=== PATIENT | male | born 1945 | race Caucasian/White ===

== ENCOUNTER 2017-02-21 02:14 | Emergency (ER) | payer OTHER, MEDICARE ==
[2017-02-21 02:25] VITALS: TEMP 98.5
[2017-02-21 02:53] LABS: Anisocytosis Slight; Basophils % (A) 0 %; CH 28.8; CHCM 33.1; Eosinophils # (A) 0.3 k/uL (0-0.7); Eosinophils % (A) 3 %; HCT 43.7 % (39.0-53.0); HDW 2.34; HGB 14.3 gm/dL (13.0-17.5); Luc # (Auto) 0.07; Luc % (Auto) 1; Lymphocytes # (A) 2.5 k/uL (1.0-4.8); Lymphocytes % (A) 28 %; MCH 28.5 pg (25.0-35.0); MCHC 32.7 g/dL (31.0-37.0); MCV 87.3 fL (80.0-100.0); Mean Platelet Volume 6.8; Monocytes # (A) 0.1 k/uL (0-1.0); Monocytes % (A) 1 %; Neutrophils # (A) 5.9 k/uL (1.3-7.7); Neutrophils % (A) 67 %; RBC 5.01 m/uL (4.30-5.90); RDW 16.1 % (11.5-15.5); WBC 8.9 k/uL (3.8-10.6); WBC (Perox) 8.56
[2017-02-21 03:01] LABS: ALT 25 U/L (21-72); AST 14 U/L (17-59); Alkaline Phosphatase 75 U/L (38-126); Amylase 72 U/L (30-110); Anion Gap 9 mmol/L; Blood Urea Nitrogen 23 mg/dL (9-20); Carbon Dioxide 22 mmol/L (22-30); Chloride 109 mmol/L (98-107); Glucose 118 mg/dL (74-99); Non-African American GFR(MDRD) 54 (>60 ml/min/1.73 sqM); Potassium 4.4 mmol/L (3.5-5.1); Sodium 140 mmol/L (137-145); Total Bilirubin 0.5 mg/dL (0.2-1.3); Total Protein 6.4 g/dL (6.3-8.2)
[2017-02-21] MEDS ORDERED: KETOROLAC 30 MG/ML 1 ML VIAL IVP STA (03:02)
[2017-02-21] MEDS ORDERED: ONDANSETRON 4 MG/2 ML VIAL IVP STA (03:03)
--- NOTE | 2017-02-21 03:05 | ED ---
Abdominal Pain HPI - General Source: patient, RN notes reviewed Mode of arrival: ambulatory Limitations: no limitations <Christine Vargas - Last Filed: 02/21/17 04:48> <Henry Lopez - Last Filed: 02/21/17 06:14> - General Chief Complaint: Abdominal Pain Stated Complaint: abd pain Time Seen by Provider: 02/21/17 02:39 - History of Present Illness Initial Comments: Patient is a 72-year-old male presents to the emergency room for evaluation of abdominal pain. Patient states pain began last . Patient states pain has been getting worse throughout the past day. Patient states he's having pain in left lower quadrant that radiates into his left lower back. Patient states he has never had pain like this before. Patient denies constipation or diarrhea. Patient denies chest pain or shortness of breath. Patient states he has history of cholecystectomy and appendectomy. Patient denies any diarrhea or constipation. Patient denies history of kidney stones. Patient denies any pain or burning during urination, trouble urinating or blood in urine. Patient denies fevers or chills. Patient denies any trauma to his abdomen or back. ( Christine Vargas) - Related Data Home Medications Medication Instructions Recorded Confirmed Folic Acid 1 mg PO DAILY 02/21/17 02/21/17 Methotrexate Sodium [Methotrexate] 8 tab PO WEEKLY 02/21/17 02/21/17 Previous Rx's Medication Instructions Recorded Hydrocodone/Acetaminophen [[place] 1 each PO Q6HR PRN #20 tab 02/21/17 5-325] Ondansetron Odt [Zofran ODT] 4 mg PO Q8HR PRN #10 tab 02/21/17 Tamsulosin [Flomax] 0.4 mg PO DAILY #14 cap 02/21/17 Allergies Allergy/AdvReac Type Severity Reaction Status Date / Time No Known Allergies Allergy Verified 02/21/17 02:25 Review of Systems ROS Other: All systems not noted in ROS Statement are negative. <Christine Vargas - Last Filed: 02/21/17 04:48> ROS Other: All systems not noted in ROS Statement are negative. <Henry Lopez - Last Filed: 02/21/17 06:14> ROS Statement: Those systems with pertinent positive or pertinent negative responses have been documented in the HPI. Past Medical History Past Medical History: Rheumatoid Arthritis (RA) Additional Past Medical History / Comment(s): 09/01/14 Pt presented to [facility] ER with c/o severe R lower chest discomfort started yesterday. Pain is present with movement or laughter or coughing. Pain is better if pt lies very still. Pt states he has had a chronic cough for 8 months. He has been on ABX several times and gets better but eventually cough returns. Other HX: Pt believes he has arthiritis which affects his entire bodies joints d/t the fact he has various joint pain with weather changes especially. History of Any Multi-Drug Resistant Organisms: None Reported Past Surgical History: Joint Replacement, Orthopedic Surgery Additional Past Surgical History / Comment(s): bilateral total knees, left shoulder-pt thinks total joint, colonoscopy with 2 polyps removed-pt thinks they were malignant but needed no further treatment. Past Anesthesia/Blood Transfusion Reactions: No Reported Reaction Additional Past Anesthesia/Blood Transfusion Reaction / Comment(s): Pt has never recieved blood. Past Psychological History: No Psychological Hx Reported Smoking Status: Former smoker Past Alcohol Use History: None Reported Past Drug Use History: None Reported - Past Family History Father Family Medical History: Cancer Additional Family Medical History / Comment(s): Father at age 70 yrs. Mother Family Medical History: Cancer Additional Family Medical History / Comment(s): Mother had breast cancer. She at age 88yrs. <Gabrielle Vargasandra Cheatham - Last Filed: 02/21/17 04:48> General Exam Limitations: no limitations General appearance: alert, in no apparent distress Head exam: Present: atraumatic, normocephalic, normal inspection Eye exam: Present: normal appearance ENT exam: Present: normal exam Neck exam: Present: normal inspection Respiratory exam: Present: normal lung sounds bilaterally. Absent: respiratory distress Cardiovascular Exam: Present: regular rate, normal rhythm, normal heart sounds GI/Abdominal exam: Present: soft, tenderness (left lower quadrant), normal bowel sounds. Absent: distended, guarding, rebound, rigid Extremities exam: Present: normal inspection Back exam: Present: normal inspection. Absent: CVA tenderness (R), CVA tenderness (L) Neurological exam: Present: alert, oriented X3, CN II-XII intact, normal gait Psychiatric exam: Present: normal affect, normal mood Skin exam: Present: warm, dry, intact, normal color. Absent: rash <Christine Vargas - Last Filed: 02/21/17 04:48> <Henry Lopez - Last Filed: 02/21/17 06:14> - General Exam Comments Initial Comments: sitting in exam room, no acute distress. (Christine Vargas) Medical Decision Making - Lab Data Result diagrams: 02/21/17 02:30 02/21/17 02:30 <Christine Vargas - Last Filed: 02/21/17 04:48> - Lab Data Result diagrams: 02/21/17 02:30 02/21/17 02:30 <Henry Lopez - Last Filed: 02/21/17 06:14> - Medical Decision Making Patient is a 72-year-old male since emergency room for evaluation of left lower quadrant pain that radiates to left flank. CT abdomen/pelvis pending. Case discussed with Dr. Lopez at 4:50 AM. (Christine Vargas) - Lab Data Lab Results 02/21/17 02/21/17 02/21/17 Range/Units 02:30 02:30 02:50 WBC 8.9 (3.8-10.6) k/uL RBC 5.01 (4.30-5.90) m/uL Hgb 14.3 (13.0-17.5) gm/dL Hct 43.7 (39.0-53.0) % MCV 87.3 (80.0-100.0) fL MCH 28.5 (25.0-35.0) pg MCHC 32.7 (31.0-37.0) g/dL RDW 16.1 H (11.5-15.5) % Plt Count 344 (150-450) k/uL Neutrophils % 67 % Lymphocytes % 28 % Monocytes % 1 % Eosinophils % 3 % Basophils % 0 % Neutrophils # 5.9 (1.3-7.7) k/uL Lymphocytes # 2.5 (1.0-4.8) k/uL Monocytes # 0.1 (0-1.0) k/uL Eosinophils # 0.3 (0-0.7) k/uL Basophils # 0.0 (0-0.2) k/uL Anisocytosis Slight Sodium 140 (137-145) mmol/L Potassium 4.4 (3.5-5.1) mmol/L Chloride 109 H (98-107) mmol/L Carbon Dioxide 22 (22-30) mmol/L Anion Gap 9 mmol/L BUN 23 H (9-20) mg/dL Creatinine 1.30 H (0.66-1.25) mg/dL Est GFR (MDRD) Af Amer >60 (>60 ml/min/1.73 sqM) Est GFR (MDRD) Non-Af 54 (>60 ml/min/1.73 sqM) Glucose 118 H (74-99) mg/dL Calcium 9.0 (8.4-10.2) mg/dL Total Bilirubin 0.5 (0.2-1.3) mg/dL AST 14 L (17-59) U/L ALT 25 (21-72) U/L Alkaline Phosphatase 75 (38-126) U/L Total Protein 6.4 (6.3-8.2) g/dL Albumin 3.6 (3.5-5.0) g/dL Amylase 72 (30-110) U/L Lipase 528 H (23-300) U/L Urine Color Yellow Urine Appearance Clear (Clear) Urine pH 6.0 (5.0-8.0) Ur Specific [place] 1.020 (1.001-1.035) Urine Protein Trace H (Negative) Urine Glucose (UA) Negative (Negative) Urine Ketones Negative (Negative) Urine Blood Small H (Negative) Urine Nitrite Negative (Negative) Urine Bilirubin Negative (Negative) Urine Urobilinogen <2.0 (<2.0) mg/dL Ur Leukocyte Esterase Moderate H (Negative) Urine RBC 23 H (0-5) /hpf Urine WBC 9 H (0-5) /hpf Urine Mucus Rare H (None) /hpf Disposition <Christine Vargas - Last Filed: 02/21/17 04:48> <Henry Lopez - Last Filed: 02/21/17 06:14> Clinical Impression: Calculus of kidney Disposition: HOME SELF-CARE Condition: Good Instructions: Kidney Stones (ED) Prescriptions: Hydrocodone/Acetaminophen [Wilton 5-325] 1 each PO Q6HR PRN #20 tab PRN Reason: Pain Ondansetron Odt [Zofran ODT] 4 mg PO Q8HR PRN #10 tab PRN Reason: Nausea Tamsulosin [Flomax] 0.4 mg PO DAILY #14 cap Referrals: Allen Barber DO [Primary Care Provider] - 1-2 days
[2017-02-21] MEDS: SODIUM CHLORIDE 0.9% 1,000 ML IV ONE ×2 (03:11→03:47)
[2017-02-21] MEDS ORDERED: SODIUM CHLORIDE 0.9% 1,000 ML IV ONE (03:42)
[2017-02-21 03:51] LABS: Appearance,Urine Clear (Clear); Bilirubin,Urine Negative (Negative); Glucose,Urine (UA) Negative (Negative); Ketones,Urine Negative (Negative); Leukocyte Esterase,Urine Moderate (Negative); Mucus,Urine Rare /hpf; Nitrite,Urine Negative (Negative); Particle Count 2595; Protein,Urine Trace (Negative); RBC,Urine 23 /hpf (0-5); UA Billing (MACRO vs. MICRO) MICRO; Urobilinogen,Urine <2.0 mg/dL (<2.0); WBC,Urine 9 /hpf (0-5)
--- NOTE | 2017-02-21 05:33 | CT ---
EXAM: CT Abdomen and Pelvis Without Intravenous Contrast CLINICAL HISTORY: Reason: Flank pain. TECHNIQUE: Axial computed tomography images of the abdomen and pelvis without intravenous contrast. CTDI is 13.90 mGy and DLP is 717.30 mGy-cm. This CT exam was performed using one or more of the following dose reduction techniques: automated exposure control, adjustment of the mA and/or kV according to patient size, and/or use of iterative reconstruction technique. COMPARISON: 09/25/14 CT with contrast FINDINGS: Lower thorax: Linear opacities suggesting atelectasis or scarring at the left base where there is trace pleural fluid or thickening present. Note is made of coronary artery calcification. ABDOMEN: Liver: Stable. Gallbladder and bile ducts: Prior cholecystectomy. No calcified stones. No ductal dilation. Pancreas: Stable. Spleen: Stable. No splenomegaly. Adrenals: Now seen is a punctate calcification at the left adrenal alicia without associated soft tissue nodule, perhaps on the basis of prior infection or hemorrhage. Kidneys and ureters: There is now a 9 mm in length mid left ureter stone at the inferior L4 level, with mild to moderate hydroureter, moderate hydronephrosis and mild perinephric stranding present. Additional smaller nonobstructing stones present within both kidneys. Small probable cyst along the posterior right upper pole kidney is unchanged. Stomach and bowel: Colonic diverticulosis throughout without evidence of diverticulitis. Appendix: No findings to suggest acute appendicitis. PELVIS: Bladder: Decompressed. No stones. Reproductive: Marked prostatic enlargement, containing calcifications within, stable. ABDOMEN and PELVIS: Intraperitoneal space: No free air. No significant fluid collection. Bones/joints: Degenerative changes without acute abnormality seen. Soft tissues: 14 mm rim calcified focus anteriorly in the left lower quadrant is unchanged and may be related to prior diverticulitis or sequela from previous epiploic appendagitis. Vasculature: No abdominal aortic aneurysm. Lymph nodes: No adenopathy is seen. IMPRESSION: 1. 9 mm left ureter stone at the L4 level, with secondary signs of urinary tract obstruction now presents. 2. Tiny nonobstructing bilateral intrarenal calculi. 3. There is new left basilar pleural thickening or trace fluid. 4. Additional findings, including a left adrenal calcification without associated soft tissue nodule, as above.
[2017-02-21 06:25] VITALS: BP 122/70; PULSE 80; RESP 20
== END 2017-02-21 06:23 | disposition home or self-care (01) ==
LOC: EC 02:14
DX: N20.0 Calculus of kidney (principal); Z79.899 Other long term (current) drug therapy; Z87.891 Personal history of nicotine dependence; Z90.49 Acquired absence of other specified parts of digestive tract
CPT/HCPCS: 99284; 96374; 96375; 96361 ×2; 36415; 80053; 82150; 83690; 85025; 81001; 74176; J2405; J1885

== ENCOUNTER → 2017-02-25 | Outpatient (CLI) | payer OTHER, MEDICARE ==
--- NOTE | 2017-02-25 11:53 | XR ---
Abdomen HISTORY: Renal calculus Frontal view of the abdomen submitted on 2 images and correlated to prior abdomen dated 02/21/2017 Surgical clips are present in the right upper quadrant. Calcified diverticulum is superimposed over t he left ilium. Multiple vascular calcifications are present within the pelvis. There are prostate jennifer cifications present, probable bone island is present within the ischium on the left. Suspect renal ca lculus is superimposed over the left L5 transverse process and one of the 2 views. It measures approx imately 8 mm. Degenerative disc changes are present in the visualized spine. Bases and probable atelectasis or scarring. No bowel obstruction or pneumoperitoneum. Punctate nonobs tructive calculus within the right kidney measures 2 to 3 mm, overlying bowel gas may obscure detail. IMPRESSION: Suspect left ureteral calculus remains in place in the distribution of the mid ureter. Ri ght nephrolithiasis, additional findings above.
== END | disposition home or self-care (01) ==
LOC: RADXRMAIN 09:24
PROVIDERS: ATTEND Urology
DX: N20.0 Calculus of kidney (principal)
CPT/HCPCS: 74000

== ENCOUNTER 2018-02-19 09:34 | Emergency (ER) | payer MEDICARE, OTHER ==
--- NOTE | 2018-02-19 09:55 | ED ---
General Adult HPI - General Chief complaint: Extremity Problem,Nontraumatic Stated complaint: Leg Pain, poss blood clot Time Seen by Provider: 02/19/18 09:40 Source: patient, RN notes reviewed Mode of arrival: ambulatory Limitations: no limitations - History of Present Illness Initial comments: Patient is 73-year-old male presented to the emergency room today with chief complaint of left calf pain 2 weeks. He did see his family doctor earlier this morning was advised coming here in the emergency room to have ultrasound to rule out a blood clot. Patient admits that he had a blood clot in his long approximate 7 years ago. States is not on any blood thinner at this time. Patient admits that he started having pain 2 weeks ago feels a leg cramp. States worse with certain movements and denies any other complaints or symptoms. Denies any injury or trauma to the area. Patient denies any recent fever, chills, shortness of breath, chest pain, back pain, abdominal pain, nausea or vomiting, numbness or tingling, or any other complaints. - Related Data Home Medications Medication Instructions Recorded Confirmed Folic Acid 1 mg PO DAILY 02/21/17 02/19/18 Methotrexate Sodium [Methotrexate] 25 tab PO Q7D 02/21/17 02/19/18 Cholecalciferol (Vitamin D3) 2,000 unit PO DAILY 02/19/18 02/19/18 [Vitamin D3] Naproxen 500 mg PO BID PRN 02/19/18 02/19/18 Sildenafil Citrate [Viagra] 50 mg PO ONCE PRN MDD 4 DOSES PER 02/19/18 02/19/18 MONTH Terazosin HCl 5 mg PO HS 02/19/18 02/19/18 Previous Rx's Medication Instructions Recorded Tamsulosin [Flomax] 0.4 mg PO DAILY #14 cap 02/21/17 Allergies Allergy/AdvReac Type Severity Reaction Status Date / Time No Known Allergies Allergy Verified 02/19/18 10:32 Review of Systems ROS Statement: Those systems with pertinent positive or pertinent negative responses have been documented in the HPI. ROS Other: All systems not noted in ROS Statement are negative. Past Medical History Past Medical History: Rheumatoid Arthritis (RA) Additional Past Medical History / Comment(s): 09/01/14 Pt presented to [facility] ER with c/o severe R lower chest discomfort started yesterday. Pain is present with movement or laughter or coughing. Pain is better if pt lies very still. Pt states he has had a chronic cough for 8 months. He has been on ABX several times and gets better but eventually cough returns. Other HX: Pt believes he has arthiritis which affects his entire bodies joints d/t the fact he has various joint pain with weather changes especially. History of Any Multi-Drug Resistant Organisms: None Reported Past Surgical History: Joint Replacement, Orthopedic Surgery Additional Past Surgical History / Comment(s): bilateral total knees, left shoulder-pt thinks total joint, colonoscopy with 2 polyps removed-pt thinks they were malignant but needed no further treatment. Past Anesthesia/Blood Transfusion Reactions: No Reported Reaction Additional Past Anesthesia/Blood Transfusion Reaction / Comment(s): Pt has never recieved blood. Past Psychological History: No Psychological Hx Reported Smoking Status: Former smoker Past Alcohol Use History: None Reported Past Drug Use History: None Reported - Past Family History Father Family Medical History: Cancer Additional Family Medical History / Comment(s): Father at age 70 yrs. Mother Family Medical History: Cancer Additional Family Medical History / Comment(s): Mother had breast cancer. She at age 88yrs. General Exam - General Exam Comments Initial Comments: General: The patient is awake and alert, in no distress, and does not appear acutely ill. Neck: The neck is supple, there is no tenderness or JVD. Cardiovascular: There is a regular rate and rhythm. No murmur, rub or gallop is appreciated. Respiratory: Lungs are clear to auscultation, respirations are non-labored, breath sounds are equal. No wheezes, stridor, rales, or rhonchi. Musculoskeletal: Full range of motion. Sensations intact. Pedal pulse 2+. Tender to palpation posterior left calf. No bony tenderness. Neurological: A&O x 3. CN II-XII intact, There are no obvious motor or sensory deficits. Coordination appears grossly intact. Speech is normal. Skin: Skin is warm and dry and no rashes or lesions are noted. Psychiatric: Normal mood and affect. Limitations: no limitations Course Vital Signs 02/19/18 09:36 Temperature 97.7 F Pulse Rate 74 Respiratory 20 Rate Blood Pressure 144/80 O2 Sat by Pulse 99 Oximetry Medical Decision Making - Medical Decision Making Patient reexamined at this time shows no signs of distress. His ultrasound shows no evidence of a deep venous thrombosis. There is evidence for superficial venous process. Patient advised compresses and says he can take ibuprofen. Disposition Clinical Impression: Superficial vein thrombosis Disposition: HOME SELF-CARE Condition: Good Instructions: Superficial Thrombophlebitis (ED) Additional Instructions: Please use warm compresses to the area as discussed with anti-inflammatories for pain as needed. Please follow-up the family doctor symptoms are increasing or return here to the emergency room for any other concerns. Is patient prescribed a controlled substance at d/c from ED?: No Referrals: [facility],Clinic [Primary Care Provider] - 1-2 days Time of Disposition: 11:22
--- NOTE | 2018-02-19 10:36 | US ---
EXAMINATION TYPE: US venous doppler duplex LE LT DATE OF EXAM: 02/19/2018 10:24 AM COMPARISON: None CLINICAL HISTORY: Pain. Hx of PE x 4 years ago. No blood thinners. Left knee pain. No swelling. No redness. SIDE PERFORMED: Left TECHNIQUE: The lower extremity deep venous system is examined utilizing real time linear array sonog sanjeev with graded compression, doppler sonography and color-flow sonography. VESSELS IMAGED: External Iliac Vein (EIV) Common Femoral Vein Deep Femoral Vein Greater Saphenous Vein * Femoral Vein Popliteal Vein Small Saphenous Vein * Proximal Calf Veins (* superficial vessels) Grayscale, color doppler, spectral doppler imaging performed of the deep veins of the left lower extr emity. There is normal flow, compressibility, vascular waveforms. Left Leg: Negative for DVT. Superficial noncompressible vein seen in posterior upper calf. IMPRESSION: 1. No sonographic evidence of deep venous thrombosis within the left lower extremity. 2. Within the posterior upper calf there is superficial venous thrombosis.
[2018-02-19 11:40] VITALS: BP 136/77; PULSE 72; RESP 18; TEMP 98.4
== END 2018-02-19 11:39 | disposition home or self-care (01) ==
LOC: EC 09:34
DX: I82.812 Embolism and thrombosis of superficial veins of left lower extremity (principal); Z96.653 Presence of artificial knee joint, bilateral; Z96.612 Presence of left artificial shoulder joint; Z87.891 Personal history of nicotine dependence; Z79.899 Other long term (current) drug therapy
CPT/HCPCS: 99283

== ENCOUNTER 2018-11-25 13:09 | Emergency (ER) | payer MEDICARE, OTHER ==
--- NOTE | 2018-11-25 13:23 | ED ---
Abdominal Pain HPI - General Chief Complaint: Abdominal Pain Stated Complaint: unable to urinate Time Seen by Provider: 11/25/18 13:20 Source: patient Mode of arrival: ambulatory - History of Present Illness Initial Comments: 73-year-old male past history of enlarged prostate presenting today for chief complaint of difficulty with urination. Patient states he attempted to use the bathroom this morning and was unable to urinate. Patient states he attempted multiple times this morning and into the early afternoon when he was unable to urinate he presented for evaluation. Patient denies any hesitancy urgency or frequency prior to the onset of these symptoms. He states he was being monitored by his primary care provider for prostate enlargement. Patient denies abdominal pain fever chills night sweats. Remaining ROS (-). Upon arrival pt appears uncomfortable. BP elevated. - Related Data Home Medications Medication Instructions Recorded Confirmed Folic Acid 1 mg PO DAILY 02/21/17 11/25/18 Methotrexate Sodium [Methotrexate] 25 mg PO TH 02/21/17 11/25/18 Cholecalciferol (Vitamin D3) 2,000 unit PO DAILY 02/19/18 11/25/18 [Vitamin D3] Naproxen 500 mg PO BID PRN 02/19/18 11/25/18 Atorvastatin [Lipitor] 20 mg PO HS 11/25/18 11/25/18 Previous Rx's Medication Instructions Recorded Cephalexin [Keflex] 500 mg PO Q6HR 5 Days #20 cap 11/25/18 Allergies Allergy/AdvReac Type Severity Reaction Status Date / Time No Known Allergies Allergy Verified 11/25/18 13:38 Review of Systems ROS Statement: Those systems with pertinent positive or pertinent negative responses have been documented in the HPI. ROS Other: All systems not noted in ROS Statement are negative. Past Medical History Past Medical History: Rheumatoid Arthritis (RA) Additional Past Medical History / Comment(s): 09/01/14 Pt presented to [facility] ER with c/o severe R lower chest discomfort started yesterday. Pain is present with movement or laughter or coughing. Pain is better if pt lies very still. Pt states he has had a chronic cough for 8 months. He has been on ABX several times and gets better but eventually cough returns. Other HX: Pt believes he has arthiritis which affects his entire bodies joints d/t the fact he has various joint pain with weather changes especially. History of Any Multi-Drug Resistant Organisms: None Reported Past Surgical History: Joint Replacement, Orthopedic Surgery Additional Past Surgical History / Comment(s): bilateral total knees, left shoulder-pt thinks total joint, colonoscopy with 2 polyps removed-pt thinks they were malignant but needed no further treatment. Past Anesthesia/Blood Transfusion Reactions: No Reported Reaction Additional Past Anesthesia/Blood Transfusion Reaction / Comment(s): Pt has never recieved blood. Past Psychological History: No Psychological Hx Reported Smoking Status: Former smoker Past Alcohol Use History: None Reported Past Drug Use History: None Reported - Past Family History Father Family Medical History: Cancer Additional Family Medical History / Comment(s): Father at age 70 yrs. Mother Family Medical History: Cancer Additional Family Medical History / Comment(s): Mother had breast cancer. She at age 88yrs. General Exam - General Exam Comments Initial Comments: General: The patient is awake and alert, in no distress Eye: +3 mm pupils are equal, round and reactive to light, extra-ocular movements are intact. No nystagmus. There is normal conjunctiva bilaterally. No signs of icterus. Ears, nose, mouth and throat: There are moist mucous membranes and no oral lesions. Neck: The neck is supple, there is no tenderness or JVD. Cardiovascular: There is a regular rate and rhythm. No murmur, rub or gallop is appreciated. Respiratory: Lungs are clear to auscultation, respirations are non-labored, breath sounds are equal. No wheezes, stridor, rales, or rhonchi. Gastrointestinal: Soft, non-distended, tender over superior bladder margin on palpation of the abdomen without masses or organomegaly noted. There is no rebound or guarding present. No CVA tenderness. Bowel sounds are unremarkable. Musculoskeletal: Normal ROM, no tenderness. Strength 5/5. Sensation intact. Pulses equal bilaterally 2+. Neurological: A&O x 3. CN II-XII intact, There are no obvious motor or sensory deficits. Coordination appears grossly intact. Speech is normal. Skin: Skin is warm and dry and no rashes or lesions are noted. Psychiatric: Cooperative, appropriate mood & affect, normal judgment. Course Vital Signs 11/25/18 11/25/18 11/25/18 13:14 13:50 14:20 Temperature 97.4 F L Pulse Rate 84 82 Respiratory 20 Rate Blood Pressure 211/85 140/83 137/86 O2 Sat by Pulse 99 98 Oximetry 11/25/18 15:01 Temperature 98.0 F Pulse Rate 58 L Respiratory 16 Rate Blood Pressure 130/68 O2 Sat by Pulse 97 Oximetry Medical Decision Making - Medical Decision Making 73-year-old male presenting for urinary retention. Guerra catheter was placed. Receiving 1 L of urine. Patient blood pressure improved denies any current discomfort. Given traumatic catheterization unable to tell if there was concurrent urinary tract infection. Patient be started on Keflex. Patient was given urology follow-up. I did discuss the case attempted bladder Dr. Espinal who is agreeable with discharge of patient without urology f/u for further evaluation. Her care was discussed with patient as well as importance of follow-up. Patient verbalized understanding. Patient is discharged appearing well - Lab Data Lab Results 11/25/18 Range/Units 13:50 Urine Color Yellow Urine Appearance Clear (Clear) Urine pH 6.5 (5.0-8.0) Ur Specific [place] 1.019 (1.001-1.035) Urine Protein Trace H (Negative) Urine Glucose (UA) Negative (Negative) Urine Ketones Negative (Negative) Urine Blood Large H (Negative) Urine Nitrite Negative (Negative) Urine Bilirubin Negative (Negative) Urine Urobilinogen <2.0 (<2.0) mg/dL Ur Leukocyte Esterase Small H (Negative) Urine RBC >182 H (0-5) /hpf Urine WBC 14 H (0-5) /hpf Ur Squamous Epith Cells <1 (0-4) /hpf Urine Mucus Rare H (None) /hpf Disposition Clinical Impression: Urinary retention Disposition: HOME SELF-CARE Condition: Good Instructions (If sedation given, give patient instructions): Urinary Retention in Men (ED), Guerra Catheter Placement and Care (ED) Additional Instructions: Please use medication as discussed. Please follow-up with urology in the next 2-3 days, primary provider in 2 days. Please return to emergency room if the symptoms increase or worsen or for any other concerns. Prescriptions: Cephalexin [Keflex] 500 mg PO Q6HR 5 Days #20 cap Is patient prescribed a controlled substance at d/c from ED?: No Referrals: [facility],Clinic [Primary Care Provider] - 1-2 days Jacob Ingram MD [STAFF PHYSICIAN] - 1-2 days Time of Disposition: 14:27
[2018-11-25 14:31] LABS: Appearance,Urine Clear (Clear); Bilirubin,Urine Negative (Negative); Blood,Urine Large (Negative); Color,Urine Yellow; Glucose,Urine (UA) Negative (Negative); Ketones,Urine Negative (Negative); Leukocyte Esterase,Urine Small (Negative); Mucus,Urine Rare /hpf; Nitrite,Urine Negative (Negative); PH, Urine 6.5 (5.0-8.0); Protein,Urine Trace (Negative); RBC,Urine >182 /hpf (0-5); Specific Gravity,Urine 1.019 (1.001-1.035); Squamous Epithelial Cell,Urine <1 /hpf (0-4); Urobilinogen,Urine <2.0 mg/dL (<2.0); WBC,Urine 14 /hpf (0-5)
[2018-11-25 15:04] VITALS: BP 130/68; PULSE 58; RESP 16; TEMP 98
== END 2018-11-25 15:04 | disposition home or self-care (01) ==
LOC: EC 13:09
DX: R33.9 Retention of urine, unspecified (principal); R10.9 Unspecified abdominal pain; M06.9 Rheumatoid arthritis, unspecified; Z96.653 Presence of artificial knee joint, bilateral; Z87.891 Personal history of nicotine dependence; Z87.438 Personal history of other diseases of male genital organs; Z79.899 Other long term (current) drug therapy
CPT/HCPCS: 51702; 51798; 81001; 99284

== ENCOUNTER → 2019-01-09 | Outpatient (CLI) | payer OTHER ==
--- NOTE | 2019-01-09 09:51 | MR ---
EXAMINATION TYPE: MR shoulder LT wo con DATE OF EXAM: 01/09/2019 COMPARISON: None HISTORY: Left shoulder pain TECHNIQUE: Multiplanar, multisequence imaging of the left shoulder is performed without contrast. FINDINGS: Exam is nondiagnostic in assessment rotator cuff injury due to metallic artifact. This resu lts in distortion of the image. On the limited images provided there appears to be severe arthropathy of the glenohumeral joint with spurring along the lower margin of the humerus and complete loss of joint space. Humeral head appears to be high in position the spine is indirect indicator of rotator cuff tear. Arthropathy of the AC j oint noted. The biceps tendon is not seen well situated the bicipital groove biceps tendon injury is in the diffe rential diagnosis. Bony labrum are nondiagnostic in assessment suprascapular notch is a normal appearance. IMPRESSION: 1. Virtually nondiagnostic exam due to severe metallic artifact demonstrates severe arthropathy of th e glenohumeral joint with complete loss of joint space and spurring. There is a high position of the humeral head which is a indirect indicator of rotator cuff tear. Rotator cuff is not seen due to nicci fact. 2. Severe arthropathy AC joint. 3. Bicipital tendon is not seen within bicipital groove correlate for biceps tendon injury.
--- NOTE | 2019-01-09 10:19 | CT ---
EXAMINATION TYPE: CT chest w con DATE OF EXAM: 01/09/2019 COMPARISON: Prior chest CT dated 09/23/2015 HISTORY: Pulmonary Nodule CT DLP: 479.3 mGycm Automated exposure control for dose reduction was used. CONTRAST: CT scan of the chest is performed with IV Contrast, patient injected with 100 mL of Isovue 300. FINDINGS: LUNGS: The lungs are stable, there is no concerning parenchymal mass or nodule identified. Parenchym al areas of abnormal density show no interval change compared to prior exam, there are areas of proba ble scarring present as on prior exam. There is no pneumothorax seen. Minimal posterior basilar effu sions are present with associated atelectatic changes The tracheobronchial tree is patent. MEDIASTINUM: There are no greater than 1 cm hilar or mediastinal lymph nodes. No pericardial effusi on is seen. Some mild coronary artery calcification noted. AORTA: No additional significant abnormality is seen. OTHER: Probable bilateral gynecomastia change. Bilateral nonobstructive nephrolithiasis changes are present. Patient is post cholecystectomy. Liver shows low attenuation may be due to hepatic steatosis .. IMPRESSION: Stable lung nodularity and scarring. Additional findings above, there are small pleural effusions.
== END | disposition home or self-care (01) ==
LOC: RADCTMAIN 06:07
DX: M19.012 Primary osteoarthritis, left shoulder (principal); J90 Pleural effusion, not elsewhere classified; R91.1 Solitary pulmonary nodule; Z90.49 Acquired absence of other specified parts of digestive tract
CPT/HCPCS: 82565; 84520; 71260; 36415; 73221; Q9967

== ENCOUNTER → 2019-03-19 | Outpatient (CLI) | payer OTHER | END | disposition home or self-care (01) | LOC: LABWHC1 07:45 | PROVIDERS: ATTEND Orthopaedic Surgery | DX: Z01.812 Encounter for preprocedural laboratory examination (principal) | CPT/HCPCS: 87070 ==

== ENCOUNTER 2019-04-07 10:45 | Inpatient (IN) | payer OTHER ==
[2019-04-07 14:15] VITALS: BMI 28.8
--- NOTE | 2019-04-13 09:58 | HP ---
HISTORY AND PHYSICAL CHIEF COMPLAINT: Left shoulder pain. HISTORY OF PRESENT ILLNESS: The patient is a 74-year-old, left-hand dominant, retired gentleman who presents with progressive left shoulder pain over the past several years. It has worsened recently. He is having pain with any attempted overhead use. He is having night symptoms. He has tried medications in addition to a previous injection with minimal relief. He underwent left shoulder rotator cuff repair 12 years ago. PAST MEDICAL HISTORY: Significant for pulmonary embolism, COPD, rheumatoid arthritis, and hypertension. PAST SURGICAL HISTORY: Significant for right total knee arthroplasty, right knee arthroscopy, bilateral shoulder arthroscopy, and partial amputation of the right hand. CURRENT MEDICATIONS: 1. Atorvastatin. 2. Methotrexate. 3. Naprosyn. 4. Tamsulosin. ALLERGIES: He denies drug allergies. FAMILY HISTORY: Unknown. SOCIAL HISTORY: Negative for current tobacco or alcohol use. REVIEW OF SYSTEMS: Sixteen point review of systems otherwise reviewed and is noncontributory. PHYSICAL EXAMINATION: On examination, the patient is approximately 6 feet tall, 225 pounds of endomorphic habitus. HEENT exam is nonfocal. Neck is supple. On examination of his left shoulder, he is tender about the anterior subacromial space and glenohumeral joint. He has moderate subacromial crepitus. Active range of motion forward elevation 80 degrees, external rotation with arm at side 35 degrees, internal rotation to L2. Motor strength is 4 minus over 5 for external rotation with the arm at the side, 3 minus over 5 for abduction. Impingement test and Neer test are positive. His distal neurovascular exam otherwise appears intact in the left upper extremity. Previous x-rays of the left shoulder obtained in the office show severe rotator cuff arthropathy. IMPRESSION: Left severe rotator cuff arthropathy. RECOMMENDATIONS: I talked to the patient at length regarding his condition along with treatment options. At this point, he is quite symptomatic despite conservative measures. After thorough discussion, he opts to proceed with surgery. We will plan to proceed with left reverse total shoulder arthroplasty. We will institute DVT prophylaxis postoperatively. Risks and benefits were discussed at length in layman's terms. MMODL / IJN: [id number] /
[2019-04-14] MEDS ORDERED: ACETAMINOPHEN TAB 500 MG TAB PO ONE (05:00)
[2019-04-14] MEDS ORDERED: MELOXICAM 7.5 MG TAB PO ONE (05:00)
[2019-04-14] MEDS ORDERED: TRANEXAMIC ACID 1,000 MG in SODIUM CHLORIDE 0.9% 100 ML IVPB ONE ×4 (05:00)
[2019-04-14] MEDS ORDERED: SCOPOLAMINE 1.5MG/72HR PATCH TRANSDERM ONE (05:15)
[2019-04-14] MEDS ORDERED: LIDOCAINE 1% 20 ML VIAL (10MG/ML) FOR IV START INTRADERMA PRN (05:15)
[2019-04-14] MEDS ORDERED: ONDANSETRON 4 MG/2 ML VIAL IVP ONE (05:15)
[2019-04-14] MEDS ORDERED: HYDROmorphone 0.5 MG/0.5 ML SYRINGE IVP PRN (05:15)
[2019-04-14] MEDS ORDERED: DEXAMETHASONE SOD PHOSPHATE 10 MG/ML 1 ML VIAL IV ONE (05:15)
[2019-04-14] MEDS ORDERED: MIDAZOLAM 2 MG/2 ML VIAL IV PRN (05:15)
[2019-04-14] MEDS: LACTATED RINGERS 1,000 ML IV SCH ×2 (08:34→09:35)
[2019-04-14] MEDS ORDERED: MIDAZOLAM (PF) 2 MG/2 ML VIAL IV ONE (08:53)
[2019-04-14] MEDS ORDERED: LIDOCAINE 1% INJ 10MG/ML (20 ML MDV) ONE (09:30)
[2019-04-14] MEDS ORDERED: fentaNYL (PF) 50 MCG/ML 2 ML AMP ONE (09:30)
[2019-04-14] MEDS ORDERED: TRANEXAMIC ACID 1,000 MG/10 ML VIAL ONE (09:30)
[2019-04-14] MEDS ORDERED: GLYCOPYRROLATE 0.2 MG/ML 2 ML VIAL ONE (09:30)
[2019-04-14] MEDS ORDERED: MIDAZOLAM 2 MG/2 ML VIAL ONE (09:30)
[2019-04-14] MEDS ORDERED: NEOSTIGMINE 1 MG/ML 10 ML VIAL ONE (09:30)
[2019-04-14] MEDS ORDERED: SUCCINYLCHOLINE CHLORIDE 100 MG/5 ML SYR IV ONE (09:30)
[2019-04-14] MEDS ORDERED: DEXAMETHASONE SOD PHOSPHATE 4 MG/ML 1 ML VIAL ONE (09:30)
[2019-04-14] MEDS ORDERED: ROCURONIUM BROMIDE 10 MG/ML 10 ML VIAL IV ONE (09:30)
[2019-04-14] MEDS ORDERED: PHENYLEPHRINE-0.9% NACL SYG 1 MG/10 ML SYRINGE ONE (09:30)
[2019-04-14] MEDS ORDERED: ePHEDrine SULFATE/0.9% NACL/PF 50 MG/5 ML SYRINGE IV ONE (09:30)
[2019-04-14] MEDS ORDERED: SODIUM CHLORIDE 0.9% 100 ML BAG ONE (09:30)
[2019-04-14] MEDS ORDERED: PROPOFOL 10 MG/ML 20 ML VIAL IV ONE (09:30)
[2019-04-14] MEDS ORDERED: ROPIVACAINE 5 MG/ML 30 ML VIAL ONE (09:30)
--- NOTE | 2019-04-14 09:51 | P.ANPRN ---
Procedure Note - Anesthesia - Nerve Block Performed Left Interscalene Single Time Out Performed: Yes Date of Procedure: 04/14/19 Procedure Start Time: 08:52 Procedure Stop Time: 09:02 Location of Patient Procedure: PreOp Indication: Acute Post-Operative Pain, Requested by Surgeon Sedation Type: Sedate with meaningful contact maintained Preparation: Sterile Prep, Sterile Dressing Position: Sitting Catheter: None Needle Types: Pajunk Needle Gauge: 20 Ultrasound used to visualize needle placement: Yes Ultrasound used to observe medication spread: Yes Injectate: 0.5% Ropivacaine (see comment for volume) (20 ml + decadron 4 mg) Blood Aspirated: No Pain Paresthesia on Injection Noted: No Resistance on Injection: Normal Image Stored and Saved: Yes Events: Uneventful and Well Tolerated
[2019-04-14] MEDS ORDERED: ceFAZolin 1,000 MG in SODIUM CHLORIDE 0.9% 1,000 ML IRRIGATION ONE (11:15)
[2019-04-14] MEDS ORDERED: LACTATED RINGERS 1,000 ML IV ONE (11:15)
[2019-04-14] MEDS ORDERED: ONDANSETRON 4 MG/2 ML VIAL IVP PRN (11:42)
[2019-04-14] MEDS ORDERED: HYDROcodone/APAP 5-325MG 1 EACH TAB PO PRN ×2 (11:42)
--- NOTE | 2019-04-14 12:04 | P.OP ---
Date of Procedure: 04/14/19 Preoperative Diagnosis: Severe left shoulder rotator cuff arthropathy Postoperative Diagnosis: Same Procedure(s) Performed: Left reverse total shoulder arthroplasty Implants: Depuy Delta Xtend size 14 humeral stem, size 1 epiphysis, 38 mm glenosphere, 38 mm +3 articular surface, standard glenosphere baseplate Anesthesia: alfredo CAREY Surgeon: Angel Bashir Cash Checker #1: Zain Elizondo Estimated Blood Loss (ml): 400 Pathology: other (Humeral head) Condition: stable Disposition: PACU Indications for Procedure: The patient's a 74-year-old male who presents with progressive left shoulder pain secondary to rotator cuff arthropathy despite conservative measures. A discussion of the risks and benefits of operative intervention versus continued conservative measures made with patient. He opted to proceed with surgery. Operative risks to include infection, neurovascular injury, development of blood clots, possible fracture, possible instability, and possible need for subsequent procedures was discussed. Informed consent was obtained. Operative Findings: As below Description of Procedure: The patient was brought to the operating room, and after induction of general anesthesia was placed in a beachchair position. The bony prominences were appropriately padded. I examined the left shoulder. There was moderate lack of passive forward elevation and external rotation. The left upper extremity was prepped and draped in normal fashion. The bony outlines the coracoid process, distal clavicle, and acromion were outlined with a skin marker. A pulse centime ter deltopectoral incision was made lateral to the coracoid process. Skin was incised sharply. Subcutaneous tissues were divided bluntly. Electrocautery was used for hemostasis. The cephalic vein was identified and gently retracted laterally with the deltoid. The deltopectoral was bluntly developed. Subdeltoid adhesions were then released. The self-retaining retractor was placed. The conjoined tendon was retracted medially and the deltoid laterally. The biceps was identified. Its sheath was opened. A biceps tenotomy was performed along the remaining tendon did retract distally. Pseudocapsule was excised. The head was then exposed. The shoulder was dislocated. A starting hole was made in line with the humeral shaft. The canal was reamed by hand up to size 14. There was good distal chatter. The cutting guide was then placed. I planned on 20 of retroversion. The humeral head cut was then made. The bone was removed in one fragment. Residual inferomedial osteophytes were removed flush with the [place] cortical bone. Attention was then paid towards preparing the glenoid. An anterior and posterior retractors placed. The labrum was released from the 6:00 to 12 o'clock position. Remaining biceps was removed as well. A guidepin was placed in the inferior aspect of the glenoid with the guide slightly tilting inferior. The reamer was used down to a bleeding bony surface. The central peg hole was drilled. The standard baseplate was inserted with good purchase. Inferior, superior, and posterior locking screws the appropriate length were placed. Good purchase was obtained. The 38 mm glenosphere was inserted over a guidewire. This was fully seated. Care was taken to avoid any soft tissue interposition. Attention was then paid towards preparing the proximal humerus. The appropriate broach was placed and 20 of retroversion and was fully seated. An eccentric size 1 epiphyseal reamer was utilized. A size 12 stem with a size 1 epiphysis was placed and 20 of retroversion. Trial reduction was obtained with a 38 mm +3 articular surface. The shoulder was taken through range of motion. It was felt to be stable in flexion and extension with internal and external rotation. I felt there was adequate scientologist of soft tissue tension judging off the conjoined tendon. The shoulder was gently dislocated. The trial components were then removed. The final size 14 press-fit stem along with a size 1 epiphysis was fully seated. There was good rotational stability. The 38 mm +3 articular surface was impacted. The shoulder again was gently reduced and taken through range of motion. Again it was felt to be stable in all planes. Pulsatile lavage was utilized. The subscapularis was a attached to the lesser tuberosity with #2 Ethibond suture. The deltopectoral interval was closed with interrupted 2-0 Vicryl sutures. The skin was reapproximated with 3-0 subcuticular Prolene suture. Steri-Strips were applied. A sterile dressing was applied. A sling was placed. The patient was awoken from general anesthesia and transferred to recovery room in good condition. Blood loss was estimated at 400 mL. No complications were incurred. Sponge and needle counts were correct at the end the case. Blayne MURDOCK assisted during the major components of the case to include exposure, glenoid and humeral preparation, implantation, and closure.
--- NOTE | 2019-04-14 12:34 | XR ---
EXAMINATION TYPE: XR shoulder limited LT DATE OF EXAM: 04/14/2019 COMPARISON: NONE HISTORY: Postop TECHNIQUE: One view submitted FINDINGS: Postsurgical findings appear in near-anatomic alignment. Soft tissue edema and emphysema no va IMPRESSION: Postoperative change
[2019-04-14] MEDS ORDERED: ARTIFICIAL TEARS-HYPROMELLOSE DROPS 15 ML BTL BOTH EYES PRN (15:50)
[2019-04-14] MEDS ORDERED: NAPROXEN 250 MG TAB PO PRN (15:57)
--- NOTE | 2019-04-14 16:35 | P.CONS ---
History of Present Illness - Reason for Consult Recommendations regarding medications for rheumatoid arthritis - History of Present Illness Pleasant 75-year-old gentleman was admitted for left shoulder arthrodesis excessively underwent surgery patient pain is well-controlled. Patient does have rheumatoid arthritis of the left hand, patient had a crush injury when he was 25 in the right hand with loss of all the fingers except for thumb on the right side. Patient denied any fever chills nausea vomiting abdominal pain dysuria patient doesn't have a Guerra catheter at this time. Review of Systems REVIEW OF SYSTEMS: CONSTITUTIONAL: No fever, no malaise, no fatigue. HEENT: No recent visual problems or hearing problems. Denied any sore throat. CARDIOVASCULAR: No chest pain, orthopnea, PND, no palpitations, no syncope. PULMONARY: No shortness of breath, no cough, no hemoptysis. GASTROINTESTINAL: No diarrhea, no nausea, no vomiting, no abdominal pain. NEUROLOGICAL: No headaches, no weakness, no numbness. HEMATOLOGICAL: Denies any bleeding or petechiae. GENITOURINARY: Denies any burning micturition, frequency, or urgency. MUSCULOSKELETAL/RHEUMATOLOGICAL: Denies any joint pain, swelling, or any muscle pain. ENDOCRINE: Denies any polyuria or polydipsia. The rest of the 14-point review of systems is negative. Past Medical History Past Medical History: Hyperlipidemia, Prostate Disorder, Pulmonary Embolus (PE), Rheumatoid Arthritis (RA) Additional Past Medical History / Comment(s): Recent CT scan chest showed fluid, to see Dr Zacarias 04/08/19. Dry eyes. BPH. Lt shoulder prob. History of Any Multi-Drug Resistant Organisms: None Reported Past Surgical History: Joint Replacement, Orthopedic Surgery Additional Past Surgical History / Comment(s): Bilateral Total Knees, Left Shoulder-pt thinks total joint, Colonoscopy with 2 polyps,-pt thinks they were malignant but needed no further treatment. Kaveh Elbows. Past Anesthesia/Blood Transfusion Reactions: No Reported Reaction Additional Past Anesthesia/Blood Transfusion Reaction / Comm: Pt has never reci eved blood. Past Psychological History: No Psychological Hx Reported Additional Psychological History / Comment(s): Pt lives with of 8 yrs. He is no longer employed. He is independent and drives a car. Smoking Status: Former smoker Past Alcohol Use History: None Reported Additional Past Alcohol Use History / Comment(s): Smoked for many years, mostly cigars, quit 1993 Past Drug Use History: None Reported - Past Family History Son(s) Family Medical History: Deep Vein Thrombosis (DVT) Father Family Medical History: Cancer Additional Family Medical History / Comment(s): Father at age 70 yrs. Mother Family Medical History: Cancer Additional Family Medical History / Comment(s): Mother had breast cancer. She at age 88yrs. Medications and Allergies Home Medications Medication Instructions Recorded Confirmed Type Folic Acid 1 mg PO DAILY 02/21/17 04/14/19 History Methotrexate Sodium [Methotrexate] 25 mg PO TH 02/21/17 04/14/19 History Cholecalciferol (Vitamin D3) 2,000 unit PO DAILY 02/19/18 04/14/19 History [Vitamin D3] Naproxen 500 mg PO BID PRN 02/19/18 04/14/19 History Atorvastatin [Lipitor] 20 mg PO HS 11/25/18 04/14/19 History Carboxymethylcellulose Sodium 1 dropper BOTH EYES DIRECTED PRN 04/07/19 04/14/19 History [Restore Plus] Mineral Oil/Petrolatum,White [Stye 1 applicate BOTH EYES HS 04/07/19 04/14/19 History Lubricant Eye Ointment] Tamsulosin HCl [Flomax] 0.4 mg PO HS 04/07/19 04/14/19 History Allergies Allergy/AdvReac Type Severity Reaction Status Date / Time No Known Allergies Allergy Verified 04/14/19 08:17 Physical Exam Vitals: Vital Signs Temp Pulse Pulse Resp BP BP Pulse Ox 04/14/19 14:30 65 130/71 95 04/14/19 14:15 68 129/73 94 L 04/14/19 14:00 69 130/72 94 L 04/14/19 13:45 69 127/74 93 L 04/14/19 13:05 71 16 132/66 95 04/14/19 12:50 71 16 132/62 94 L 04/14/19 12:36 69 16 145/65 94 L 04/14/19 12:21 68 16 140/59 98 04/14/19 12:06 97 F L 78 16 149/67 96 04/14/19 08:58 68 16 125/63 100 04/14/19 08:12 97.5 F L 70 16 122/70 98 04/14/19 01:30 97.6 F 70 16 139/75 95 Intake and Output 04/14/19 04/14/19 04/14/19 06:59 14:59 22:59 Intake Total 1801 Output Total 400 Balance 1401 Intake: IV 1801 Output: Estimated Blood Loss 400 Other: Weight 103 kg PHYSICAL EXAMINATION: GENERAL: The patient is alert and oriented x3, not in any acute distress. Well developed, well nourished. HEENT: Pupils are round and equally reacting to light. EOMI. No scleral icterus. No conjunctival pallor. Normocephalic, atraumatic. No pharyngeal erythema. No thyromegaly. CARDIOVASCULAR: S1 and S2 present. No murmurs, rubs, or gallops. PULMONARY: Chest is clear to auscultation, no wheezing or crackles. ABDOMEN: Soft, nontender, nondistended, normoactive bowel sounds. No palpable organomegaly. MUSCULOSKELETAL: No joint swelling or deformity. Patient has a left hand slinged and left shoulder postsurgically packed EXTREMITIES: No cyanosis, clubbing, or pedal edema. NEUROLOGICAL: Gross neurological examination did not reveal any focal deficits. SKIN: No rashes. Assessment and Plan Plan: -Right shoulder arthroplasty: Pain management as per primary service of the patient will be started on an nonsteroidal anti-inflammatory medications as he was using these medications for rheumatoid arthritis. Patient does have rheumat oid deformity in the left hand. Due to prophylaxis per primary service Abdomen benign prostatic hypertrophy -Rheumatoid arthritis -Hyperlipidemia Above mentioned chronic medical problems patient will be resumed on appropriate home medications.
[2019-04-14] MEDS: TAMSULOSIN 0.4 MG CAP.ER.24H PO SCH (21:32)
[2019-04-14] MEDS: ATORVASTATIN 20 MG TAB PO SCH (21:32)
[2019-04-14] MEDS: FAMOTIDINE 20 MG TAB PO SCH (21:32)
[2019-04-14] MEDS: ARTIFICIAL TEARS OINTMENT 3.5 GM TUBE BOTH EYES SCH (21:33)
[2019-04-15] MEDS: LACTATED RINGERS 1,000 ML IV SCH ×2 (03:02→21:33)
[2019-04-15] MEDS: HYDROmorphone 0.5 MG/0.5 ML SYRINGE IVP PRN ×2 (03:35→15:36)
[2019-04-15 08:02] LABS: Basophils # (A) 0.3 k/uL (0-0.2); Basophils % (A) 3 %; Eosinophils # (A) 0.1 k/uL (0-0.7); Eosinophils % (A) 1 %; HCT 37.4 % (39.0-53.0); HGB 11.9 gm/dL (13.0-17.5); Lymphocytes # (A) 1.5 k/uL (1.0-4.8); Lymphocytes % (A) 16 %; MCH 27.9 pg (25.0-35.0); MCHC 31.8 g/dL (31.0-37.0); MCV 87.6 fL (80.0-100.0); Mean Platelet Volume 7.5; Monocytes # (A) 0.5 k/uL (0-1.0); Monocytes % (A) 5 %; Neutrophils # (A) 6.8 k/uL (1.3-7.7); Neutrophils % (A) 73 %; Platelet Count 256 k/uL (150-450); RBC 4.27 m/uL (4.30-5.90); RDW 15.3 % (11.5-15.5); WBC 9.2 k/uL (3.8-10.6)
[2019-04-15] MEDS: FOLIC ACID 1 MG TAB PO SCH (08:26)
[2019-04-15] MEDS: FAMOTIDINE 20 MG TAB PO SCH ×2 (08:26→20:57)
[2019-04-15] MEDS: CHOLECALCIFEROL 1,000 UNIT TAB PO SCH (08:26)
[2019-04-15] MEDS: ASPIRIN 325 MG TAB PO SCH (08:26)
[2019-04-15] MEDS ORDERED: HYDROcodone/APAP 7.5-325MG 1 EACH TAB PO PRN (11:32)
--- NOTE | 2019-04-15 11:36 | P.PN ---
Subjective Progress Note Date: 04/15/19 Principal diagnosis: Status post reversal shoulder arthroplasty Patient evaluated at bedside today, he is resting comfortably. He does note some increasing pain in the left shoulder since the block wore off. He denies any chest pain or shortness of breath. Objective - Vital Signs Vital signs: Vital Signs Temp 98.0 F 04/15/19 07:34 Pulse 66 04/15/19 07:34 Resp 16 04/15/19 07:34 BP 99/59 04/15/19 07:34 Pulse Ox 96 04/15/19 07:34 Intake & Output 04/14/19 04/15/19 04/15/19 18:59 06:59 18:59 Intake Total 1801 Output Total 400 Balance 1401 Weight 103 kg Intake: IV 1801 Output: Estimated Blood Loss 400 Other: # Voids 2 - Exam Left upper extremity: Initial postoperative bandage was removed, incision is clean, dry and intact. Steri-Strips are in good position and condition. Minimal soft tissue swelling present. Sensory exam to light touch throughout the extremity is intact, radial pulses 2+. - Labs CBC & Chem 7: 04/15/19 07:42 Labs: Abnormal Lab Results - Last 24 Hours (Table) 04/15/19 Range/Units 07:42 RBC 4.27 L (4.30-5.90) m/uL Hgb 11.9 L (13.0-17.5) gm/dL Hct 37.4 L (39.0-53.0) % Basophils # 0.3 H (0-0.2) k/uL Assessment and Plan Plan: Assessment: Postoperative day 1 status post left shoulder reverse total arthroplasty Plan: Pain control, I did increase his oral medication GI and DVT prophylaxis, continue aspirin 325 mg daily Wound care instructions discussed Medical recommendations Possible discharge home today, for sure tomorrow Time with Patient: Less than 30
[2019-04-15] MEDS: HYDROcodone/APAP 7.5-325MG 1 EACH TAB PO PRN ×3 (11:58→23:44)
--- NOTE | 2019-04-15 13:53 | P.PN ---
Subjective Patient is complaining of pain in the left shoulder area. Patient is bit hypotensive expected postoperatively the patient was started on IV fluids. Constitutional: Denied any fatigue denied any fever. Cardio vascular: denied any chest pain, palpitations Gastrointestinal denied any nausea vomiting Pulmonary: Denied any shortness of breath cough Neurologic denied any new focal deficits All inpatient medications were reviewed and appropriate changes in these medications as dictated in the interval history and assessment and plan. Objective - Vital Signs Vital signs: Vital Signs Temp 98.0 F 04/15/19 07:34 Pulse 66 04/15/19 07:34 Resp 16 04/15/19 07:34 BP 99/59 04/15/19 07:34 Pulse Ox 96 04/15/19 07:34 Intake & Output 04/14/19 04/15/19 04/15/19 18:59 06:59 18:59 Intake Total 1801 Output Total 400 Balance 1401 Weight 103 kg Intake: IV 1801 Output: Estimated Blood Loss 400 Other: # Voids 2 - Exam PHYSICAL EXAMINATION: GENERAL: The patient is alert and oriented x3, not in any acute distress. Well developed, well nourished. HEENT: Pupils are round and equally reacting to light. EOMI. No scleral icterus. No conjunctival pallor. Normocephalic, atraumatic. No pharyngeal erythema. No thyromegaly. CARDIOVASCULAR: S1 and S2 present. No murmurs, rubs, or gallops. PULMONARY: Chest is clear to auscultation, no wheezing or crackles. ABDOMEN: Soft, nontender, nondistended, normoactive bowel sounds. No palpable organomegaly. MUSCULOSKELETAL: No joint swelling or deformity. Patient has a left hand slinged and left shoulder postsurgically packed EXTREMITIES: No cyanosis, clubbing, or pedal edema. NEUROLOGICAL: Gross neurological examination did not reveal any focal deficits. SKIN: No rashes. - Labs CBC & Chem 7: 04/15/19 07:42 Labs: Abnormal Lab Results - Last 24 Hours (Table) 04/15/19 Range/Units 07:42 RBC 4.27 L (4.30-5.90) m/uL Hgb 11.9 L (13.0-17.5) gm/dL Hct 37.4 L (39.0-53.0) % Basophils # 0.3 H (0-0.2) k/uL Assessment and Plan Plan: -Right shoulder arthroplasty: Pain management as per primary service patient is bit hypotensive expected postoperative day patient will be started on lactated Ringer's continue at 75 mL per hour for today. Pain management as per primary service Abdomen benign prostatic hypertrophy -Rheumatoid arthritis -Hyperlipidemia Above mentioned chronic medical problems patient will be resumed on appropriate home medications.
[2019-04-15] MEDS: ARTIFICIAL TEARS OINTMENT 3.5 GM TUBE BOTH EYES SCH (20:57)
[2019-04-15] MEDS: TAMSULOSIN 0.4 MG CAP.ER.24H PO SCH (20:57)
[2019-04-15] MEDS: ATORVASTATIN 20 MG TAB PO SCH (20:57)
[2019-04-16] MEDS: HYDROcodone/APAP 7.5-325MG 1 EACH TAB PO PRN (05:35)
[2019-04-16 07:08] LABS: Glucose,Whole Blood 96 mg/dL (75-99)
[2019-04-16 08:39] VITALS: BP 153/76; PULSE 79; RESP 12; TEMP 98
[2019-04-16] MEDS: FOLIC ACID 1 MG TAB PO SCH ×2 (08:57→08:58)
[2019-04-16] MEDS: CHOLECALCIFEROL 1,000 UNIT TAB PO SCH (08:57)
[2019-04-16] MEDS: ASPIRIN 325 MG TAB PO SCH (08:57)
[2019-04-16] MEDS: FAMOTIDINE 20 MG TAB PO SCH (08:58)
[2019-04-16] MEDS ORDERED: METHOTREXATE SODIUM 2.5 MG TAB PO SCH (09:00)
--- NOTE | 2019-04-16 11:06 | P.PN ---
Subjective Progress Note Date: 04/16/19 Principal diagnosis: Status post reversal shoulder arthroplasty Patient evaluated at bedside today, he is resting comfortably. Pain is better controlled today he did have some nausea and vomiting early this morning, this was right after taking pain pills on an empty stomach.. He denies any chest pain or shortness of breath. Objective - Vital Signs Vital signs: Vital Signs Temp 98 F 04/16/19 07:00 Pulse 79 04/16/19 08:00 Resp 12 04/16/19 08:00 BP 153/76 04/16/19 07:00 Pulse Ox 95 04/16/19 07:00 Intake & Output 04/15/19 04/16/19 04/16/19 18:59 06:59 18:59 Intake Total 800 Balance 800 Intake: Oral 800 Other: # Voids 3 1 - Exam Left upper extremity: Initial postoperative bandage was removed, incision is clean, dry and intact. Steri-Strips are in good position and condition. Minimal soft tissue swelling present. Sensory exam to light touch throughout the extremity is intact, radial pulses 2+. - Labs CBC & Chem 7: 04/15/19 07:42 Assessment and Plan Plan: Assessment: Postoperative day #2 status post left shoulder reverse total arthroplasty Plan: Pain control, plan for discharge on [place] 7.5 mg/325 mg GI and DVT prophylaxis, continue aspirin 325 mg daily Wound care instructions discussed Medical recommendations Discharged home today Time with Patient: Less than 30
--- NOTE | 2019-04-16 11:11 | P.DS ---
Providers Date of admission: 04/14/19 07:18 Expected date of discharge: 04/16/19 Attending physician: Angel Bashir Consults: 04/14/19 11:42 Consult Physician Routine Consulting Provider: Soren Gamboa Consult Reason/Comments: medical management Do you want consulting provider notified?: Yes Primary care physician: [facility] Hospital Course: Date of admission: 04/14/2019 Date of discharge: 04/16/2019 Admission diagnosis: Status post revision left total shoulder arthroplasty Discharge diagnosis: Same Attending physician: Dr. Bashir Surgical procedures: Revision left total shoulder arthroplasty Brief history: Patient is a 74-year-old male with a history of severe left shoulder rotator cuff arthropathy. At this point patient has failed conservative treatment measures and has opted to proceed with a elective left reverse total shoulder arthroplasty. Hospital course: Details of patient's surgery can be found in operative report. Patient tolerated the procedure well and was subsequently transported to orthopedic floor. Patient's orthopeidc and medical care was provided daily. Patient had daily laboratory tests performed for evaluation of overall blood cou nts. Patient had daily physical therapy to include strengthening range of motion as well as education with walker ambulation. Patient was treated with aspirin for their postoperative DVT prophylaxis during their inpatient stay. Patient was noted to have a relatively uneventful postoperative course. Patient reported satisfactory pain control with oral pain medications by postoperative day 0. Patient showed satisfactory progress with physical therapy. Patient moved steadily through the program and had no difficulty meeting the goals by postoperative day 2. Given patient's otherwise satisfactory course and having met physical therapy goals, plan is to discharge patient home on postoperative day 2. Discharge condition/disposition: Patient will be discharged home in stable condition. Discharge medications: Instructions are given on resumption of patient's normal daily medications per primary care recommendation, in addition patient will be prescribed Wallace 7.5 mg/325 mg, Zofran 8 mg, aspirin 325 mg. Discharge instructions: 1. Wound care and infection precautions, keep incision dry and covered while showering, no lotions, creams, moisturizers. No soaking, tubs, pools, hottubs. Do not scrub over the incision. 2. Utilize arm sling 3. Ice and elevate when necessary. Do not exceed 20 minutes per hour with ice pack. 4. Utilize compression sleeve until seen at first follow up appointment. 5. Visiting nursing care. 6. Home physical therapy. 7. Pain meds and anticoagulants per prescription. 8. Pain medication has potential to cause constipation. Increase oral fluid and fiber intake. Contact primary care provider if you have not had a bowel movement within 48 hours after discharge 9. No anti-inflammatory medication until discussed at first post operative visit, this including Motrin, Aleve, Mobic, Diclofenac 10. Follow up in office at 2 weeks postop with Blayne Elizondo PA-C 11. Follow up with your primary care doctor 7-10 days after discharge. 12. Contact [facility] with any questions, . Procedures: Reverse left total shoulder arthroplasty Patient Condition at Discharge: Good Plan - Discharge Summary Discharge Rx Participant: Yes New Discharge Prescriptions: New Aspirin 325 mg PO DAILY #30 tab HYDROcodone/APAP 7.5-325MG [Wallace 7.5] 1 - 2 each PO Q6HR PRN #40 tab PRN Reason: Pain Ondansetron HCl [Zofran] 8 mg PO DAILY PRN #12 tablet PRN Reason: Nausea No Action Folic Acid 1 mg PO DAILY Methotrexate Sodium [Methotrexate] 25 mg PO TH Naproxen 500 mg PO BID PRN PRN Reason: Pain Cholecalciferol (Vitamin D3) [Vitamin D3] 2,000 unit PO DAILY Atorvastatin [Lipitor] 20 mg PO HS Mineral Oil/Petrolatum,White [Stye Lubricant Eye Ointment] 1 applicate BOTH EYES HS Carboxymethylcellulose Sodium [Restore Plus] 1 dropper BOTH EYES DIRECTED PRN PRN Reason: Dry Eye(S) Tamsulosin HCl [Flomax] 0.4 mg PO HS Discharge Medication List Folic Acid 1 mg PO DAILY 02/21/17 [History] Methotrexate Sodium [Methotrexate] 25 mg PO TH 02/21/17 [History] Cholecalciferol (Vitamin D3) [Vitamin D3] 2,000 unit PO DAILY 02/19/18 [History] Naproxen 500 mg PO BID PRN 02/19/18 [History] Atorvastatin [Lipitor] 20 mg PO HS 11/25/18 [History] Carboxymethylcellulose Sodium [Restore Plus] 1 dropper BOTH EYES DIRECTED PRN 04/07/19 [History] Mineral Oil/Petrolatum,White [Stye Lubricant Eye Ointment] 1 applicate BOTH EYES HS 04/07/19 [History] Tamsulosin HCl [Flomax] 0.4 mg PO HS 04/07/19 [History] Aspirin 325 mg PO DAILY #30 tab 04/16/19 [Rx] HYDROcodone/APAP 7.5-325MG [Wallace 7.5] 1 - 2 each PO Q6HR PRN #40 tab 04/16/19 [Rx] Ondansetron HCl [Zofran] 8 mg PO DAILY PRN #12 tablet 04/16/19 [Rx] Follow up Appointment(s)/Referral(s): Zain Elizondo PAC [PHYSICIAN [employer]] - 2 Weeks Activity/Diet/Wound Care/Special Instructions: Orthopedic discharge instructions: 1. Pain control, utilize medication as needed 2. Aspirin 325 mg daily for DVT prophylaxis 3. Utilize arm sling 4. Ice the shoulder often 5. Keep incision dry and covered while showering 6. Plan for follow-up at [facility] 2 weeks Discharge Disposition: HOME SELF-CARE
--- NOTE | 2019-04-16 12:00 | P.PN ---
Subjective Patient is complaining of pain in the left shoulder area. Patient is bit hypotensive expected postoperatively the patient was started on IV fluids. 04/16/2019 Patient is ablating the hallway doing much better no hypotension patient can be discharged from medical perspective but patient is bit elevated because of IV fluids expected to improve was these fluids were discontinued Constitutional: Denied any fatigue denied any fever. Cardio vascular: denied any chest pain, palpitations Gastrointestinal denied any nausea vomiting Pulmonary: Denied any shortness of breath cough Neurologic denied any new focal deficits All inpatient medications were reviewed and appropriate changes in these medications as dictated in the interval history and assessment and plan. Objective - Vital Signs Vital signs: Vital Signs Temp 98 F 04/16/19 07:00 Pulse 79 04/16/19 08:00 Resp 12 04/16/19 08:00 BP 153/76 04/16/19 07:00 Pulse Ox 95 04/16/19 07:00 Intake & Output 04/15/19 04/16/19 04/16/19 18:59 06:59 18:59 Intake Total 800 Balance 800 Intake: Oral 800 Other: # Voids 3 1 - Exam PHYSICAL EXAMINATION: GENERAL: The patient is alert and oriented x3, not in any acute distress. Well developed, well nourished. HEENT: Pupils are round and equally reacting to light. EOMI. No scleral icterus. No conjunctival pallor. Normocephalic, atraumatic. No pharyngeal erythema. No thyromegaly. CARDIOVASCULAR: S1 and S2 present. No murmurs, rubs, or gallops. PULMONARY: Chest is clear to auscultation, no wheezing or crackles. ABDOMEN: Soft, nontender, nondistended, normoactive bowel sounds. No palpable organomegaly. MUSCULOSKELETAL: No joint swelling or deformity. Patient has a left hand slinge d and left shoulder postsurgically packed EXTREMITIES: No cyanosis, clubbing, or pedal edema. NEUROLOGICAL: Gross neurological examination did not reveal any focal deficits. SKIN: No rashes. - Labs CBC & Chem 7: 04/15/19 07:42 Assessment and Plan Plan: -Right shoulder arthroplasty: Pain management as per primary service , IV fluids were discontinued and patient can be discharged from medical perspective Abdomen benign prostatic hypertrophy -Rheumatoid arthritis -Hyperlipidemia
== END 2019-04-16 13:00 | disposition home or self-care (01) | DRG 483 ==
LOC: EDSTATUS 10:45 → 2ORMAIN 04-14 07:18 → 4SSUR 04-14 13:07
PROVIDERS: ADMIT Orthopaedic Surgery; ATTEND Orthopaedic Surgery
PROC: 0RRK00Z Replacement of Left Shoulder Joint with Reverse Ball and Socket Synthetic Substitute, Open Approach (ICD-10-PCS; principal; 2019-04-14 09:00)
DX: M06.812 Other specified rheumatoid arthritis, left shoulder (principal); J44.9 Chronic obstructive pulmonary disease, unspecified; I10 Essential (primary) hypertension; E78.5 Hyperlipidemia, unspecified; I95.9 Hypotension, unspecified; M75.122 Complete rotator cuff tear or rupture of left shoulder, not specified as traumatic; N40.0 Benign prostatic hyperplasia without lower urinary tract symptoms; Z96.651 Presence of right artificial knee joint; M06.9 Rheumatoid arthritis, unspecified; Z89.111 Acquired absence of right hand; Z79.899 Other long term (current) drug therapy; Z86.711 Personal history of pulmonary embolism; Z87.891 Personal history of nicotine dependence; Z80.3 Family history of malignant neoplasm of breast; Z87.828 Personal history of other (healed) physical injury and trauma; Z98.890 Other specified postprocedural states; Z80.49 Family history of malignant neoplasm of other genital organs; Z82.49 Family history of ischemic heart disease and other diseases of the circulatory system; Z80.9 Family history of malignant neoplasm, unspecified
CPT/HCPCS: 64415; 76942; 85025; 88300

== ENCOUNTER → 2019-04-08 | Outpatient (CLI) | payer MEDICARE | END | disposition home or self-care (01) | LOC: CPPFTMAIN 07:03 | PROVIDERS: ATTEND Internal Medicine Critical Care Medicine | DX: J44.9 Chronic obstructive pulmonary disease, unspecified (principal); R94.2 Abnormal results of pulmonary function studies; J84.9 Interstitial pulmonary disease, unspecified | CPT/HCPCS: 94060; 94726; 94729 ==

== ENCOUNTER 2019-05-27 01:36 | Emergency (ER) | payer MEDICARE, OTHER ==
[2019-05-27 01:43] VITALS: RESP 20; TEMP 97.9
--- NOTE | 2019-05-27 02:22 | XR ---
EXAMINATION TYPE: XR chest 2V DATE OF EXAM: 05/27/2019 COMPARISON: 09/01/2014 HISTORY: Cough TECHNIQUE: Frontal and lateral views of the chest are obtained. FINDINGS: There is patchy pulmonary interstitial infiltrates. There is blunting of the costophrenic angles. Heart size is normal. Mediastinum appears normal. There is left shoulder prosthesis. IMPRESSION: There is increased pleural fluid and interstitial edema compared to last exam and sugges tive of mild heart failure. Heart appears increased in size compared to last exam.
[2019-05-27 03:29] LABS: Basophils # (A) 0.1 k/uL (0-0.2); Basophils % (A) 1 %; Eosinophils # (A) 0.4 k/uL (0-0.7); Eosinophils % (A) 6 %; HCT 36.8 % (39.0-53.0); HGB 12.2 gm/dL (13.0-17.5); Lymphocytes % (A) 28 %; MCH 29.4 pg (25.0-35.0); MCHC 33.3 g/dL (31.0-37.0); MCV 88.3 fL (80.0-100.0); Mean Platelet Volume 6.4; Monocytes # (A) 0.3 k/uL (0-1.0); Monocytes % (A) 5 %; Neutrophils # (A) 4.4 k/uL (1.3-7.7); Neutrophils % (A) 60 %; Platelet Count 284 k/uL (150-450); RBC 4.16 m/uL (4.30-5.90); RDW 14.9 % (11.5-15.5); WBC 7.4 k/uL (3.8-10.6)
[2019-05-27 03:40] LABS: Albumin 3.6 g/dL (3.5-5.0); Calcium 9.3 mg/dL (8.4-10.2); Potassium 4.6 mmol/L (3.5-5.1); Total Bilirubin 0.4 mg/dL (0.2-1.3); Total Protein 6.6 g/dL (6.3-8.2)
--- NOTE | 2019-05-27 03:40 | ED ---
General Adult HPI - General Chief complaint: Upper Respiratory Infection Stated complaint: Cough; poss pneumonia Time Seen by Provider: 05/27/19 01:45 Source: patient, family Mode of arrival: ambulatory Limitations: no limitations - History of Present Illness Initial comments: Patient is 74-year-old male with history of PE presenting to emergency Depart ment with chief complaint cough. Patient reports his developed nonproductive cough for about 3 weeks. She also reports sore throat, clear bilateral rhinorrhea with occasional otalgia. Patient denies any shortness of breath but does report occasional dyspnea on exertion. Patient denies any chest pain at this time. Patient denies night sweats fevers or chills. Patient denies unilateral leg swelling or calf pain. Patient denies previous cardiac history. Patient is not a smoker but does report hypercholesterolemia. Patient reports over last several days the repeated episodes of coughing is waking him up from his sleep. Patient reports a coughing is exacerbated when laying down. - Related Data Home Medications Medication Instructions Recorded Confirmed Folic Acid 1 mg PO DAILY 02/21/17 04/14/19 Methotrexate Sodium [Methotrexate] 25 mg PO TH 02/21/17 04/14/19 Cholecalciferol (Vitamin D3) 2,000 unit PO DAILY 02/19/18 04/14/19 [Vitamin D3] Naproxen 500 mg PO BID PRN 02/19/18 04/14/19 Atorvastatin [Lipitor] 20 mg PO HS 11/25/18 04/14/19 Carboxymethylcellulose Sodium 1 dropper BOTH EYES DIRECTED PRN 04/07/19 04/14/19 [Restore Plus] Mineral Oil/Petrolatum,White [Stye 1 applicate BOTH EYES HS 04/07/19 04/14/19 Lubricant Eye Ointment] Tamsulosin HCl [Flomax] 0.4 mg PO HS 04/07/19 04/14/19 Previous Rx's Medication Instructions Recorded Aspirin 325 mg PO DAILY #30 tab 04/16/19 HYDROcodone/APAP 7.5-325MG [[place]run[place] 1 - 2 each PO Q6HR PRN #40 tab 04/16/19 7.5] Ondansetron HCl [Zofran] 8 mg PO DAILY PRN #12 tablet 04/16/19 Azithromycin [Zithromax Z-pack] 0 mg PO DIRECTED #1 pack 05/27/19 Furosemide [Lasix] 10 mg PO DAILY #5 tab 05/27/19 Allergies Allergy/AdvReac Type Severity Reaction Status Date / Time No Known Allergies Allergy Verified 05/27/19 01:43 Review of Systems ROS Statement: Those systems with pertinent positive or pertinent negative responses have been documented in the HPI. ROS Other: All systems not noted in ROS Statement are negative. Past Medical History Past Medical History: Hyperlipidemia, Prostate Disorder, Pulmonary Embolus (PE), Rheumatoid Arthritis (RA) Additional Past Medical History / Comment(s): Recent CT scan chest showed fluid, to see Dr Zacarias 04/08/19. Dry eyes. BPH. Lt shoulder prob. History of Any Multi-Drug Resistant Organisms: None Reported Past Surgical History: Joint Replacement, Orthopedic Surgery Additional Past Surgical History / Comment(s): Bilateral Total Knees, Left Shoulder-pt thinks total joint, Colonoscopy with 2 polyps,-pt thinks they were malignant but needed no further treatment. Kaveh Elbows, left rotator cuff repair, Past Anesthesia/Blood Transfusion Reactions: No Reported Reaction Additional Past Anesthesia/Blood Transfusion Reaction / Comment(s): Pt has never recieved blood. Past Psychological History: No Psychological Hx Reported Smoking Status: Former smoker Past Alcohol Use History: None Reported Past Drug Use History: None Reported - Past Family History Son(s) Family Medical History: Deep Vein Thrombosis (DVT) Father Family Medical History: Cancer Additional Family Medical History / Comment(s): Father at age 70 yrs. Mother Family Medical History: Cancer Additional Family Medical History / Comment(s): Mother had breast cancer. She at age 88yrs. General Exam Limitations: no limitations General appearance: alert, in no apparent distress Head exam: Present: atraumatic, normocephalic, normal inspection Eye exam: Present: normal appearance, PERRL, EOMI Pupils: Present: normal accommodation ENT exam: Present: normal exam, normal oropharynx, mucous membranes moist, TM's normal bilaterally, normal external ear exam Neck exam: Present: normal inspection, full ROM Respiratory exam: Present: rales (Mild crackles left lung base.) Cardiovascular Exam: Present: regular rate, normal rhythm Extremities exam: Present: normal inspection, full ROM Back exam: Present: normal inspection, full ROM Neurological exam: Present: alert, oriented X3 Psychiatric exam: Present: normal affect, normal mood Skin exam: Present: warm, intact, normal color Course Vital Signs 05/27/19 05/27/19 01:40 01:50 Temperature 97.9 F Pulse Rate 82 Respiratory 20 20 Rate Blood Pressure 125/65 O2 Sat by Pulse 97 Oximetry EKG Findings - EKG Comments: EKG Findings:: Normal sinus rhythm. Ventricular rate 74, HI interval 176, QRS duration 84, QT/QTC 390/432 Medical Decision Making - Medical Decision Making Patient is 74-year-old male presenting to emergency Department with a chief complaint of a cough. Physical examination is negative of mild crackles at the left lung base. Chest x-ray is indicative of increased lower effusion compared to last exam possibly indicating some heart failure. Cardiac workup was initiated. Patient has an elevated d-dimer of 2.3. CTA of chest is negative for PE but does indicate some infiltrates suggesting a possible inflammatory etiology. Patient will be treated with azithromycin. Patient also be given a dose of Lasix in the ED and discharged with 5 days Lasix. Patient advised follow-up with primary care. Strict return parameters were thoroughly discussed with patient is worsening agreeable. Case discussed physician. - Lab Data Result diagrams: 05/27/19 03:17 05/27/19 03:17 Lab Results 05/27/19 05/27/19 05/27/19 Range/Units 03:17 03:17 03:17 WBC 7.4 (3.8-10.6) k/uL RBC 4.16 L (4.30-5.90) m/uL Hgb 12.2 L (13.0-17.5) gm/dL Hct 36.8 L (39.0-53.0) % MCV 88.3 (80.0-100.0) fL MCH 29.4 (25.0-35.0) pg MCHC 33.3 (31.0-37.0) g/dL RDW 14.9 (11.5-15.5) % Plt Count 284 (150-450) k/uL Neutrophils % 60 % Lymphocytes % 28 % Monocytes % 5 % Eosinophils % 6 % Basophils % 1 % Neutrophils # 4.4 (1.3-7.7) k/uL Lymphocytes # 2.0 (1.0-4.8) k/uL Monocytes # 0.3 (0-1.0) k/uL Eosinophils # 0.4 (0-0.7) k/uL Basophils # 0.1 (0-0.2) k/uL PT 10.1 (9.0-12.0) sec INR 0.9 (<1.2) APTT 23.7 (22.0-30.0) sec D-Dimer 2.10 H (<0.60) mg/L FEU Sodium 139 (137-145) mmol/L Potassium 4.6 (3.5-5.1) mmol/L Chloride 110 H (98-107) mmol/L Carbon Dioxide 21 L (22-30) mmol/L Anion Gap 8 mmol/L BUN 26 H (9-20) mg/dL Creatinine 0.98 (0.66-1.25) mg/dL Est GFR (CKD-EPI)AfAm 88 (>60 ml/min/1.73 sqM) Est GFR (CKD-EPI)NonAf 76 (>60 ml/min/1.73 sqM) Glucose 102 H (74-99) mg/dL Calcium 9.3 (8.4-10.2) mg/dL Magnesium 2.0 (1.6-2.3) mg/dL Total Bilirubin 0.4 (0.2-1.3) mg/dL AST 24 (17-59) U/L ALT 47 (21-72) U/L Alkaline Phosphatase 127 H (38-126) U/L Troponin I (0.000-0.034) ng/mL NT-Pro-B Natriuret Pep pg/mL Total Protein 6.6 (6.3-8.2) g/dL Albumin 3.6 (3.5-5.0) g/dL 05/27/19 05/27/19 Range/Units 03:17 03:17 WBC (3.8-10.6) k/uL RBC (4.30-5.90) m/uL Hgb (13.0-17.5) gm/dL Hct (39.0-53.0) % MCV (80.0-100.0) fL MCH (25.0-35.0) pg MCHC (31.0-37.0) g/dL RDW (11.5-15.5) % Plt Count (150-450) k/uL Neutrophils % % Lymphocytes % % Monocytes % % Eosinophils % % Basophils % % Neutrophils # (1.3-7.7) k/uL Lymphocytes # (1.0-4.8) k/uL Monocytes # (0-1.0) k/uL Eosinophils # (0-0.7) k/uL Basophils # (0-0.2) k/uL PT (9.0-12.0) sec INR (<1.2) APTT (22.0-30.0) sec D-Dimer (<0.60) mg/L FEU Sodium (137-145) mmol/L Potassium (3.5-5.1) mmol/L Chloride (98-107) mmol/L Carbon Dioxide (22-30) mmol/L Anion Gap mmol/L BUN (9-20) mg/dL Creatinine (0.66-1.25) mg/dL Est GFR (CKD-EPI)AfAm (>60 ml/min/1.73 sqM) Est GFR (CKD-EPI)NonAf (>60 ml/min/1.73 sqM) Glucose (74-99) mg/dL Calcium (8.4-10.2) mg/dL Magnesium (1.6-2.3) mg/dL Total Bilirubin (0.2-1.3) mg/dL AST (17-59) U/L ALT (21-72) U/L Alkaline Phosphatase (38-126) U/L Troponin I <0.012 (0.000-0.034) ng/mL NT-Pro-B Natriuret Pep 127 pg/mL Total Protein (6.3-8.2) g/dL Albumin (3.5-5.0) g/dL Disposition Clinical Impression: Bronchitis, Pleural effusion, Nonproductive cough Disposition: HOME SELF-CARE Condition: Stable Additional Instructions: Please follow up with primary care. Please return to emergency department if symptoms worsen. Please take prescribed medication as directed. Prescriptions: Azithromycin [Zithromax Z-pack] 0 mg PO DIRECTED #1 pack Is patient prescribed a controlled substance at d/c from ED?: No Referrals: [facility] [Primary Care Provider] - 1-2 days Time of Disposition: 05:08
[2019-05-27 03:42] LABS: INR 0.9 (<1.2); Partial Thromboplastin Time 23.7 sec (22.0-30.0); Prothrombin Time 10.1 sec (9.0-12.0)
[2019-05-27 03:53] LABS: D-Dimer 2.1 mg/L FEU (<0.60)
--- NOTE | 2019-05-27 04:27 | CT ---
EXAMINATION TYPE: CT chest angio for PE DATE OF EXAM: 05/27/2019 COMPARISON: 01/09/2011 HISTORY: elevated d-dimer CT DLP: 583 mGycm Automated exposure control for dose reduction was used. CONTRAST: CT Chest for pulmonary embolism performed with with IV Contrast, patient injected with 100 mL of Isov ue 370. There are 3-D post processed images. FINDINGS: There is a patchy reticular nodular infiltrate throughout the lungs. There is mild pleural thickening at the lung bases. There is patchy atelectasis at the lung bases. Heart size is normal. There is no pericardial effusion. There are a few paratracheal lymph nodes that measure up to 1.5 cm. There are n o hilar masses. There is 1.5 cm anterior mediastinal lymph node. Thoracic aorta shows no aneurysm or dissection. I see no filling defects in the pulmonary arteries. The bony thorax appears intact. IMPRESSION: No evidence of pulmonary embolism. Moderate patchy bilateral pulmonary infiltrates and pleural thicke angie increased slightly compared to old exam. Mild mediastinal adenopathy. This probably relates to i nflammatory disease.
[2019-05-27] MEDS ORDERED: FUROSEMIDE 10 MG/ML 2 ML VIAL IV STA (05:09)
[2019-05-27 05:33] VITALS: BP 119/65; PULSE 76
== END 2019-05-27 05:30 | disposition home or self-care (01) ==
LOC: EC 01:36
DX: J40 Bronchitis, not specified as acute or chronic (principal); J90 Pleural effusion, not elsewhere classified; R79.1 Abnormal coagulation profile; E78.5 Hyperlipidemia, unspecified; E78.00 Pure hypercholesterolemia, unspecified; M06.9 Rheumatoid arthritis, unspecified; N40.0 Benign prostatic hyperplasia without lower urinary tract symptoms; Z87.891 Personal history of nicotine dependence; Z79.899 Other long term (current) drug therapy; Z96.653 Presence of artificial knee joint, bilateral; Z86.711 Personal history of pulmonary embolism
CPT/HCPCS: 36415; 93005; 85379; 83880; 80053; 83735; 84484; 85025; 85610; 85730; 71046; 71275; 99285; 96374; J1940; Q9967

== ENCOUNTER 2020-01-21 08:49 | Inpatient (IN) | payer OTHER, MEDICARE ==
[2020-01-21] MEDS ORDERED: SODIUM CHLORIDE 0.9% 1,000 ML IV STA (09:09)
[2020-01-21 10:05] LABS: Basophils # (A) 0.1 k/uL (0-0.2); Basophils % (A) 1 %; Eosinophils # (A) 0.1 k/uL (0-0.7); Eosinophils % (A) 1 %; HCT 49.9 % (39.0-53.0); HGB 15.8 gm/dL (13.0-17.5); Lymphocytes # (A) 2.4 k/uL (1.0-4.8); Lymphocytes % (A) 22 %; MCH 27.9 pg (25.0-35.0); MCHC 31.7 g/dL (31.0-37.0); Mean Platelet Volume 7.8; Monocytes # (A) 0.6 k/uL (0-1.0); Monocytes % (A) 5 %; Neutrophils # (A) 7.7 k/uL (1.3-7.7); Neutrophils % (A) 71 %; Platelet Count 294 k/uL (150-450); RBC 5.67 m/uL (4.30-5.90); RDW 13.8 % (11.5-15.5); WBC 10.9 k/uL (3.8-10.6)
--- NOTE | 2020-01-21 10:07 | ED ---
General Adult HPI - General Chief complaint: Dizziness Stated complaint: sob, Dizziness Time Seen by Provider: 01/21/20 08:58 Source: patient, RN notes reviewed Mode of arrival: wheelchair Limitations: no limitations - History of Present Illness Initial comments: This is a 75-year-old male presents emergency Department chief complaint fever, cough, shortness breath and chest pain. Patient states symptoms started late Saturday. Patient states that symptoms have worsened. He felt very weak, felt near syncopal. Patient is so weak today that he fell to the ground. Did not have a head injury. Patient states he has dry hacking cough and some left-sided chest discomfort, tightness. He has no history of lung disease. Patient does take methotrexate for RA, Flomax for BPH and Lipitor. Patient denies any complaints of abdominal pain including nausea, vomiting, diarrhea constipation denies any sick contacts no neck stiffness or neck pain. She has no complaints of dysuria or hematuria - Related Data Home Medications Medication Instructions Recorded Confirmed Cholecalciferol (Vitamin D3) 2,000 unit PO DAILY 02/19/18 01/21/20 [Vitamin D3] Atorvastatin [Lipitor] 20 mg PO HS 11/25/18 01/21/20 Meloxicam [Mobic] 15 mg PO DAILY 01/21/20 01/21/20 Naproxen Sodium [Aleve] 440 mg PO HS 01/21/20 01/21/20 predniSONE 5 mg PO DAILY 01/21/20 01/21/20 Allergies Allergy/AdvReac Type Severity Reaction Status Date / Time No Known Allergies Allergy Verified 01/21/20 10:19 Review of Systems ROS Statement: Those systems with pertinent positive or pertinent negative responses have been documented in the HPI. ROS Other: All systems not noted in ROS Statement are negative. Past Medical History Past Medical History: Hyperlipidemia, Prostate Disorder, Pulmonary Embolus (PE), Rheumatoid Arthritis (RA) Additional Past Medical History / Comment(s): Recent CT scan chest showed fluid, to see Dr Zacarias 04/08/19. Dry eyes. BPH. Lt shoulder prob. History of Any Multi-Drug Resistant Organisms: None Reported Past Surgical History: Joint Replacement, Orthopedic Surgery Additional Past Surgical History / Comment(s): Bilateral Total Knees, Left Shoulder-pt thinks total joint, Colonoscopy with 2 polyps,-pt thinks they were malignant but needed no further treatment. Kaveh Elbows, left rotator cuff repair, Past Anesthesia/Blood Transfusion Reactions: No Reported Reaction Additional Past Anesthesia/Blood Transfusion Reaction / Comment(s): Pt has never recieved blood. Past Psychological History: No Psychological Hx Reported Smoking Status: Former smoker Past Alcohol Use History: None Reported Past Drug Use History: None Reported - Past Family History Son(s) Family Medical History: Deep Vein Thrombosis (DVT) Father Family Medical History: Cancer Additional Family Medical History / Comment(s): Father at age 70 yrs. Mother Family Medical History: Cancer Additional Family Medical History / Comment(s): Mother had breast cancer. She at age 88yrs. General Exam Limitations: no limitations General appearance: alert, in no apparent distress Head exam: Present: atraumatic, normocephalic, normal inspection Eye exam: Present: normal appearance, PERRL, EOMI. Absent: scleral icterus, conjunctival injection, periorbital swelling ENT exam: Present: normal exam, normal oropharynx, mucous membranes moist, TM's normal bilaterally Neck exam: Present: normal inspection, full ROM. Absent: tenderness, meningismus, lymphadenopathy Respiratory exam: Present: rhonchi. Absent: normal lung sounds bilaterally, respiratory distress, wheezes, rales, stridor Cardiovascular Exam: Present: regular rate, normal rhythm, normal heart sounds. Absent: systolic murmur, diastolic murmur, rubs, gallop, clicks GI/Abdominal exam: Present: soft, normal bowel sounds. Absent: distended, tenderness, guarding, rebound, rigid Extremities exam: Absent: pedal edema Neurological exam: Present: alert, oriented X3 Skin exam: Present: warm, dry, intact, normal color. Absent: rash Course Vital Signs 01/21/20 01/21/20 01/21/20 08:53 08:56 09:56 Temperature 97.7 F Pulse Rate 64 75 Respiratory 18 20 20 Rate Blood Pressure 93/57 109/67 O2 Sat by Pulse 96 96 Oximetry 01/21/20 10:00 Temperature Pulse Rate 75 Respiratory 20 Rate Blood Pressure 109/67 O2 Sat by Pulse 96 Oximetry EKG Findings - EKG Comments: EKG Findings:: EKG performed at 10:01 normal sinus rhythm rate of 76 MA 164 QRS 90 QT status QTC 394/443 - EKG Results: EKG: interpreted by [facility] Medical Decision Making - Medical Decision Making 75-year-old male presented from for fever cough congestion shortness breath. Patient's found to have masslike pneumonia. Patient did have some mild hypertension on presentation though improved after IV fluids. Patient was started on Rocephin and azithromycin will be admitted for pulmonology evaluation, IV antibiotics. - Lab Data Result diagrams: 01/21/20 09:45 01/21/20 09:45 Lab Results 01/21/20 01/21/20 01/21/20 Range/Units 09:45 09:45 09:45 WBC 10.9 H (3.8-10.6) k/uL RBC 5.67 (4.30-5.90) m/uL Hgb 15.8 (13.0-17.5) gm/dL Hct 49.9 (39.0-53.0) % MCV 88.0 (80.0-100.0) fL MCH 27.9 (25.0-35.0) pg MCHC 31.7 (31.0-37.0) g/dL RDW 13.8 (11.5-15.5) % Plt Count 294 (150-450) k/uL Neutrophils % 71 % Lymphocytes % 22 % Monocytes % 5 % Eosinophils % 1 % Basophils % 1 % Neutrophils # 7.7 (1.3-7.7) k/uL Lymphocytes # 2.4 (1.0-4.8) k/uL Monocytes # 0.6 (0-1.0) k/uL Eosinophils # 0.1 (0-0.7) k/uL Basophils # 0.1 (0-0.2) k/uL PT 10.6 (9.0-12.0) sec INR 1.0 (<1.2) APTT 22.0 (22.0-30.0) sec D-Dimer 1.65 H (<0.60) mg/L FEU Sodium (137-145) mmol/L Potassium (3.5-5.1) mmol/L Chloride (98-107) mmol/L Carbon Dioxide (22-30) mmol/L Anion Gap mmol/L BUN (9-20) mg/dL Creatinine (0.66-1.25) mg/dL Est GFR (CKD-EPI)AfAm (>60 ml/min/1.73 sqM) Est GFR (CKD-EPI)NonAf (>60 ml/min/1.73 sqM) Glucose (74-99) mg/dL Plasma Lactic Acid Jarret (0.7-2.0) mmol/L Calcium (8.4-10.2) mg/dL Magnesium (1.6-2.3) mg/dL Total Bilirubin (0.2-1.3) mg/dL AST (17-59) U/L ALT (4-49) U/L Alkaline Phosphatase (38-126) U/L Creatine Kinase (55-170) U/L Troponin I (0.000-0.034) ng/mL NT-Pro-B Natriuret Pep pg/mL Total Protein (6.3-8.2) g/dL Albumin (3.5-5.0) g/dL Urine Color [place] Urine Appearance Cloudy (Clear) Urine pH 5.5 (5.0-8.0) Ur Specific [place] 1.027 (1.001-1.035) Urine Protein 1+ H (Negative) Urine Glucose (UA) Negative (Negative) Urine Ketones Negative (Negative) Urine Blood Moderate H (Negative) Urine Nitrite Negative (Negative) Urine Bilirubin 1+ H (Negative) Urine Urobilinogen 8.0 (<2.0) mg/dL Ur Leukocyte Esterase Large H (Negative) Urine RBC 109 H (0-5) /hpf Urine WBC 19 H (0-5) /hpf Ur Squamous Epith Cells 1 (0-4) /hpf Calcium Oxalate Crystal Occasional H (None) /hpf Urine Bacteria Rare H (None) /hpf Hyaline Casts 10 H (0-2) /lpf Urine Mucus Many H (None) /hpf 01/21/20 01/21/20 01/21/20 Range/Units 09:45 09:45 09:45 WBC (3.8-10.6) k/uL RBC (4.30-5.90) m/uL Hgb (13.0-17.5) gm/dL Hct (39.0-53.0) % MCV (80.0-100.0) fL MCH (25.0-35.0) pg MCHC (31.0-37.0) g/dL RDW (11.5-15.5) % Plt Count (150-450) k/uL Neutrophils % % Lymphocytes % % Monocytes % % Eosinophils % % Basophils % % Neutrophils # (1.3-7.7) k/uL Lymphocytes # (1.0-4.8) k/uL Monocytes # (0-1.0) k/uL Eosinophils # (0-0.7) k/uL Basophils # (0-0.2) k/uL PT (9.0-12.0) sec INR (<1.2) APTT (22.0-30.0) sec D-Dimer (<0.60) mg/L FEU Sodium 139 (137-145) mmol/L Potassium 5.0 (3.5-5.1) mmol/L Chloride 106 (98-107) mmol/L Carbon Dioxide 23 (22-30) mmol/L Anion Gap 10 mmol/L BUN 33 H (9-20) mg/dL Creatinine 1.35 H (0.66-1.25) mg/dL Est GFR (CKD-EPI)AfAm 59 (>60 ml/min/1.73 sqM) Est GFR (CKD-EPI)NonAf 51 (>60 ml/min/1.73 sqM) Glucose 149 H (74-99) mg/dL Plasma Lactic Acid Jarret 1.7 (0.7-2.0) mmol/L Calcium 9.5 (8.4-10.2) mg/dL Magnesium 2.3 (1.6-2.3) mg/dL Total Bilirubin 1.4 H (0.2-1.3) mg/dL AST 42 (17-59) U/L ALT 39 (4-49) U/L Alkaline Phosphatase 175 H (38-126) U/L Creatine Kinase 33 L (55-170) U/L Troponin I <0.012 (0.000-0.034) ng/mL NT-Pro-B Natriuret Pep pg/mL Total Protein 7.8 (6.3-8.2) g/dL Albumin 3.7 (3.5-5.0) g/dL Urine Color Urine Appearance (Clear) Urine pH (5.0-8.0) Ur Specific [place] (1.001-1.035) Urine Protein (Negative) Urine Glucose (UA) (Negative) Urine Ketones (Negative) Urine Blood (Negative) Urine Nitrite (Negative) Urine Bilirubin (Negative) Urine Urobilinogen (<2.0) mg/dL Ur Leukocyte Esterase (Negative) Urine RBC (0-5) /hpf Urine WBC (0-5) /hpf Ur Squamous Epith Cells (0-4) /hpf Calcium Oxalate Crystal (None) /hpf Urine Bacteria (None) /hpf Hyaline Casts (0-2) /lpf Urine Mucus (None) /hpf 01/21/20 Range/Units 09:45 WBC (3.8-10.6) k/uL RBC (4.30-5.90) m/uL Hgb (13.0-17.5) gm/dL Hct (39.0-53.0) % MCV (80.0-100.0) fL MCH (25.0-35.0) pg MCHC (31.0-37.0) g/dL RDW (11.5-15.5) % Plt Count (150-450) k/uL Neutrophils % % Lymphocytes % % Monocytes % % Eosinophils % % Basophils % % Neutrophils # (1.3-7.7) k/uL Lymphocytes # (1.0-4.8) k/uL Monocytes # (0-1.0) k/uL Eosinophils # (0-0.7) k/uL Basophils # (0-0.2) k/uL PT (9.0-12.0) sec INR (<1.2) APTT (22.0-30.0) sec D-Dimer (<0.60) mg/L FEU Sodium (137-145) mmol/L Potassium (3.5-5.1) mmol/L Chloride (98-107) mmol/L Carbon Dioxide (22-30) mmol/L Anion Gap mmol/L BUN (9-20) mg/dL Creatinine (0.66-1.25) mg/dL Est GFR (CKD-EPI)AfAm (>60 ml/min/1.73 sqM) Est GFR (CKD-EPI)NonAf (>60 ml/min/1.73 sqM) Glucose (74-99) mg/dL Plasma Lactic Acid Jarret (0.7-2.0) mmol/L Calcium (8.4-10.2) mg/dL Magnesium (1.6-2.3) mg/dL Total Bilirubin (0.2-1.3) mg/dL AST (17-59) U/L ALT (4-49) U/L Alkaline Phosphatase (38-126) U/L Creatine Kinase (55-170) U/L Troponin I (0.000-0.034) ng/mL NT-Pro-B Natriuret Pep 998 pg/mL Total Protein (6.3-8.2) g/dL Albumin (3.5-5.0) g/dL Urine Color Urine Appearance (Clear) Urine pH (5.0-8.0) Ur Specific [place] (1.001-1.035) Urine Protein (Negative) Urine Glucose (UA) (Negative) Urine Ketones (Negative) Urine Blood (Negative) Urine Nitrite (Negative) Urine Bilirubin (Negative) Urine Urobilinogen (<2.0) mg/dL Ur Leukocyte Esterase (Negative) Urine RBC (0-5) /hpf Urine WBC (0-5) /hpf Ur Squamous Epith Cells (0-4) /hpf Calcium Oxalate Crystal (None) /hpf Urine Bacteria (None) /hpf Hyaline Casts (0-2) /lpf Urine Mucus (None) /hpf Disposition Clinical Impression: Pneumonia, Lung mass Disposition: ADMITTED IP TO THIS HOSP Condition: Serious Referrals: [facility],Clinic [Primary Care Provider] - 1-2 days
--- NOTE | 2020-01-21 10:08 | XR ---
EXAMINATION TYPE: XR chest 2V DATE OF EXAM: 01/21/2020 COMPARISON: 05/27/2019 HISTORY: Shortness of breath TECHNIQUE: Frontal and lateral views of the chest are obtained. FINDINGS: Scattered senescent parenchymal changes noted. Hyperinflation compatible with COPD. Masslike density right midlung zone extending from the right hilum with small right-sided pleural eff usion. The findings may reflect pneumonia. Underlying mass is not excluded. Clinical correlation and appropriate follow-up is advised. Heart size is stable. Mediastinal structures are stable and grossly unremarkable. No evidence for hilar prominence. Degenerative changes dorsal spine. IMPRESSION: 1. Masslike density right midlung zone extending from the right hilum with small right-sided pleural effusion. The findings may reflect pneumonia. Underlying mass is not excluded. Clinical correlation a nd appropriate follow-up is advised.
[2020-01-21 10:09] LABS: Appearance,Urine Cloudy (Clear); Bacteria,Urine Rare /hpf; Bilirubin,Urine 1+ (Negative); Blood,Urine Moderate (Negative); Calcium Oxalate Crystals,Urine Occasional /hpf; Color,Urine Orange; Glucose,Urine (UA) Negative (Negative); Hyaline Casts,Urine 10 /lpf (0-2); Ketones,Urine Negative (Negative); Leukocyte Esterase,Urine Large (Negative); Mucus,Urine Many /hpf; Nitrite,Urine Negative (Negative); PH, Urine 5.5 (5.0-8.0); Protein,Urine 1+ (Negative); RBC,Urine 109 /hpf (0-5); Specific Gravity,Urine 1.027 (1.001-1.035); Squamous Epithelial Cell,Urine 1 /hpf (0-4); WBC,Urine 19 /hpf (0-5)
[2020-01-21] MEDS ORDERED: cefTRIAXone IN SWFI 1,000 MG/10 ML SYRINGE IVP STA (10:12)
[2020-01-21 10:31] LABS: Albumin 3.7 g/dL (3.5-5.0); Calcium 9.5 mg/dL (8.4-10.2); Magnesium 2.3 mg/dL (1.6-2.3); Total Bilirubin 1.4 mg/dL (0.2-1.3); Total Protein 7.8 g/dL (6.3-8.2)
[2020-01-21 10:44] LABS: Prothrombin Time 10.6 sec (9.0-12.0)
[2020-01-21 10:48] LABS: D-Dimer 1.65 mg/L FEU (<0.60)
--- NOTE | 2020-01-21 11:41 | CT ---
EXAMINATION TYPE: CT chest angio for PE DATE OF EXAM: 01/21/2020 COMPARISON: 05/27/2019 HISTORY: elevated d dimer CT DLP: 497.8 mGycm CONTRAST: CT chest with contrast and 3D reconstruction with MIP imaging is performed with IV Contrast, patient injected with 100 mL of Isovue 370. Contrast-enhanced CT of the chest was performed through the course of the pulmonary arteries with nesha g and mediastinal window settings submitted. 3D reconstruction with MIP imaging was also performed. PULMONARY ARTERIES: The pulmonary arteries and their major tributaries are patent. I do not see conrado dence for sizable filling defect to suggest pulmonary embolic process. LUNGS: Masslike density right hilum could reflect neoplasm however pneumonia is an additional conside ration. Masslike area measures 5.9 x 5.3 x 4.6 cm. Additional areas of nodularity right upper lobe me asure 9.8 mm and 1 cm respectively. Dependent basilar atelectasis. MEDIASTINUM: Thoracic aorta is of normal caliber,however, evaluation is limited given timing of the contrast bolus. If there is concern for thoracic aortic pathology consider DIEGO. Correlate clinicall y . The heart is not enlarged. No evidence for mediastinal mass. No mediastinal lymph nodes greater than 1cm. HILAR STRUCTURES: No evidence for mass. No hilar lymph nodes greater than 1 cm. UPPER ABDOMEN: No significant abnormality is seen. IMPRESSION: 1. Masslike density right hilum could reflect neoplasm however pneumonia is an additional considerat ion. Masslike area measures 5.9 x 5.3 x 4.6 cm. Additional areas of nodularity right upper lobe measu re 9.8 mm and 1 cm respectively. Clinical correlation advised. Continued follow-up until resolution i s recommended. PET/CT could be obtained. 2. No evidence for pulmonary embolism.
[2020-01-21] MEDS ORDERED: AZITHROMYCIN 500 MG in SODIUM CHLORIDE 0.9% 250 ML IVPB STA (11:54)
[2020-01-21] MEDS ORDERED: PNEUMONIA PROTOCOL UTILIZED 1 EACH MISC PO PRN (11:56)
[2020-01-21] MEDS: SODIUM CHLORIDE 0.9% 1,000 ML IV SCH (12:25)
--- NOTE | 2020-01-21 14:17 | P.HPIM ---
History of Present Illness Patient presents on-year-old male came in with compensative fever, cough and shortness of breath going on for about 3 days. Patient had a fever of 100.5 at home yesterday. No fever is evident since his arrival to ER. Patient felt weak and dizzy. Patient denied any nausea vomiting diarrhea. Patient is complaining of cough without any sputum production. Patient does have a history of rheumatoid arthritis and takes methotrexate and the prednisone for rheumatoid arthritis. Patient denied any dysuria. Patient had a chest x-ray as well as CT any of the chest which was reviewed by me CT angios the chest showed a masslike consolidation in the right hilar area there is a bronchogram as well. Patient was appropriately started on Rocephin and azithromycin which will be continued on nausea was consulted patient may eventually need bronchoscopy depending on the resolution of this masslike consolidation down the line. Patient does have history of smoking long time ago patient overall had [id number] history of smoking. Review of Systems REVIEW OF SYSTEMS: CONSTITUTIONAL: No fever, no malaise, no fatigue. HEENT: No recent visual problems or hearing problems. Denied any sore throat. CARDIOVASCULAR: No chest pain, orthopnea, PND, no palpitations, no syncope. PULMONARY: no hemoptysis. GASTROINTESTINAL: No diarrhea, no nausea, no vomiting, no abdominal pain. NEUROLOGICAL: No headaches, no weakness, no numbness. HEMATOLOGICAL: Denies any bleeding or petechiae. GENITOURINARY: Denies any burning micturition, frequency, or urgency. MUSCULOSKELETAL/RHEUMATOLOGICAL: Denies any joint pain, swelling, or any muscle pain. ENDOCRINE: Denies any polyuria or polydipsia. The rest of the 14-point review of systems is negative. Past Medical History Past Medical History: Cancer, Eye Disorder, Hyperlipidemia, Prostate Disorder, Pulmonary Embolus (PE), Rheumatoid Arthritis (RA) Additional Past Medical History / Comment(s): 2015 R sided PE, bilateral chronic lung nodules, "leaky heart valve", BPH, skin cancer with removals, malignant colon polyps removed, headaches since CHI, bilateral cataracts. History of Any Multi-Drug Resistant Organisms: None Reported Past Surgical History: Appendectomy, Cholecystectomy, Heart Catheterization, Joint Replacement, Orthopedic Surgery Additional Past Surgical History / Comment(s): R knee arthroscopy, bilateral total knee arthroplasties, R shoulder rotator cuff repair, total L shoulder, bilateral elbow surgery, R hand partial amputation d/t injury, colonoscopy with 2 cancerous polypectomies, skin cancer removed, EGD Past Anesthesia/Blood Transfusion Reactions: No Reported Reaction Additional Past Anesthesia/Blood Transfusion Reaction / Comment(s): Pt has never recieved blood. Past Psychological History: No Psychological Hx Reported Additional Psychological History / Comment(s): Pt resides with his spouse. He is independent. Smoking Status: Former smoker Past Alcohol Use History: None Reported Additional Past Alcohol Use History / Comment(s): Pt started smoking in 1973, mostly cigars and quit in 1993. Past Drug Use History: None Reported - Past Family History Son(s) Family Medical History: Deep Vein Thrombosis (DVT) Father Family Medical History: Cancer Additional Family Medical History / Comment(s): Father of lymphoma at age 70 yrs. Mother Family Medical History: Cancer Additional Family Medical History / Comment(s): Mother had breast cancer. She at age 88yrs. Medications and Allergies Home Medications Medication Instructions Recorded Confirmed Type Cholecalciferol (Vitamin D3) 2,000 unit PO DAILY 02/19/18 01/21/20 History [Vitamin D3] Atorvastatin [Lipitor] 20 mg PO HS 11/25/18 01/21/20 History Meloxicam [Mobic] 15 mg PO DAILY 01/21/20 01/21/20 History Naproxen Sodium [Aleve] 440 mg PO HS 01/21/20 01/21/20 History predniSONE 5 mg PO DAILY 01/21/20 01/21/20 History Allergies Allergy/AdvReac Type Severity Reaction Status Date / Time No Known Allergies Allergy Verified 01/21/20 10:19 Physical Exam Vitals: Vital Signs Temp Pulse Resp BP Pulse Ox 01/21/20 12:27 70 16 117/71 97 01/21/20 10:00 75 20 109/67 96 01/21/20 09:56 75 20 109/67 96 01/21/20 08:56 20 01/21/20 08:53 97.7 F 64 18 93/57 96 Intake and Output 01/20/20 01/21/20 01/21/20 22:59 06:59 14:59 Other: Weight 97.976 kg PHYSICAL EXAMINATION: GENERAL: The patient is alert and oriented x3, not in any acute distress. Well developed, well nourished. HEENT: Pupils are round and equally reacting to light. EOMI. No scleral icterus. No conjunctival pallor. Normocephalic, atraumatic. No pharyngeal erythema. No thyromegaly. CARDIOVASCULAR: S1 and S2 present. No murmurs, rubs, or gallops. PULMONARY: Chest is clear to auscultation, no wheezing or crackles. ABDOMEN: Soft, nontender, nondistended, normoactive bowel sounds. No palpable organomegaly. MUSCULOSKELETAL: No joint swelling or deformity. EXTREMITIES: No cyanosis, clubbing, or pedal edema. NEUROLOGICAL: Gross neurological examination did not reveal any focal deficits. SKIN: No rashes. Results CBC & Chem 7: 01/21/20 09:45 01/21/20 09:45 Labs: Abnormal Lab Results - Last 24 Hours (Table) 01/21/20 01/21/20 01/21/20 Range/Units 09:45 09:45 09:45 WBC 10.9 H (3.8-10.6) k/uL D-Dimer 1.65 H (<0.60) mg/L FEU BUN (9-20) mg/dL Creatinine (0.66-1.25) mg/dL Glucose (74-99) mg/dL Total Bilirubin (0.2-1.3) mg/dL Alkaline Phosphatase (38-126) U/L Creatine Kinase (55-170) U/L Urine Protein 1+ H (Negative) Urine Blood Moderate H (Negative) Urine Bilirubin 1+ H (Negative) Ur Leukocyte Esterase Large H (Negative) Urine RBC 109 H (0-5) /hpf Urine WBC 19 H (0-5) /hpf Calcium Oxalate Crystal Occasional H (None) /hpf Urine Bacteria Rare H (None) /hpf Hyaline Casts 10 H (0-2) /lpf Urine Mucus Many H (None) /hpf 01/21/20 Range/Units 09:45 WBC (3.8-10.6) k/uL D-Dimer (<0.60) mg/L FEU BUN 33 H (9-20) mg/dL Creatinine 1.35 H (0.66-1.25) mg/dL Glucose 149 H (74-99) mg/dL Total Bilirubin 1.4 H (0.2-1.3) mg/dL Alkaline Phosphatase 175 H (38-126) U/L Creatine Kinase 33 L (55-170) U/L Urine Protein (Negative) Urine Blood (Negative) Urine Bilirubin (Negative) Ur Leukocyte Esterase (Negative) Urine RBC (0-5) /hpf Urine WBC (0-5) /hpf Calcium Oxalate Crystal (None) /hpf Urine Bacteria (None) /hpf Hyaline Casts (0-2) /lpf Urine Mucus (None) /hpf Thrombosis Risk Factor Assmnt - Choose All That Apply Any of the Below Risk Factors Present?: Yes Each Factor Represents 1 point: Obesity (BMI >25), Serious lung disease incl. p neumonia (< 1month) Other Risk Factors: Yes Each Risk Factor Represents 2 Points: Malignancy Each Risk Factor Represents 3 Points: Age 75 years or older, Family history of DVT/PE, History of DVT/PE Other congenital or acquired thrombophilia - If yes, enter type in comment: No Thrombosis Risk Factor Assessment Total Risk Factor Score: 13 Thrombosis Risk Factor Assessment Level: High Risk Assessment and Plan Plan: -Possible pneumonia with a masslike consolidation: Patient was continued on Rocephin and azithromycin. Can use IV fluids. Pulmonology was consulted mass in the right hilum cannot be completely ruled out at this time. -Dizziness: Probably secondary to dehydration any with IV fluids as mentioned above -Acute renal failure most probably prerenal azotemia from intravascular and the patient patient is on 2 nonsteroidal anti-inflammatory medications will be held may be contributing to his renal failure will repeat basic metabolic profile tomorrow -History of carotid arthritis not in the blood flare: Continue with home medications -Hyperlipidemia continue with Lipitor -DVT prophylaxis with subcutaneous heparin
--- NOTE | 2020-01-21 15:10 | P.CNPUL ---
History of Present Illness Consult date: 01/21/20 Reason for consult: dyspnea, cough, pneumonia Chief complaint: Fever and cough and shortness of breath for the last 3 days History of present illness: This is a 75-year-old white male with history of rheumatoid arthritis, chronic bilateral pulmonary nodules remote history of pulmonary embolism in 2015, and history of valvular heart disease. Patient has been seen in our office over 8 years ago for nonspecific pulmonary nodules. Over the last few days, the patient has been complaining of fever, weakness, cough which is productive with yellow phlegm, but no hemoptysis. Patient was evaluated and a chest x-ray show ed right hilar midlung lesion, suspicious for underlying malignancy although the possibility of pneumonia is not entirely ruled out. CT of the chest showed masslike consolidation in the right hilar area with minimal bronchogram noted in the abnormality. Again the radiologist raised the possibility of malignancy and/or pneumonia. Patient was admitted, placed on Rocephin and Zithromax, and I was asked to see him on consultation. After reviewing the patient's CT of the chest and chest x-ray, I discussed with the patient and his the options of treatment and follow-up x-ray or CT of the chest in the next few months, I also gave him the option of bronchoscopy and transbronchial biopsy to be done tomorrow. Both are agreeable to bronchoscopy and transbronchial biopsy which will be done tomorrow at noontime. In the meantime we will treat the patient with Rocephin and Zithromax. Patient describes some 8 pound weight loss in the last 6 months. Denies any other major symptoms. Review of Systems CONSTITUTIONAL: Fever, chills, as noted in HPI. Positive weight loss. HEENT: Denies blurred vision dizziness diplopia. CARDIOVASCULAR: No chest pain, orthopnea, PND, no palpitations, no syncope. PULMONARY: As noted in HPI. GASTROINTESTINAL: No diarrhea, no nausea, no vomiting, no abdominal pain. NEUROLOGICAL: No headaches, no weakness, no numbness. HEMATOLOGICAL: Denies clotting bleeding or bruising GENITOURINARY: Denies hematuria frequency urgency. 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 Traumatic. ENDOCRINE: No heat or cold intolerance. No polyuria polydipsia. And polyphagia. Psychiatric: Denies any symptoms of depression. Skin: Denies any rashes or pruritus. Past Medical History Past Medical History: Cancer, Eye Disorder, Hyperlipidemia, Prostate Disorder, Pulmonary Embolus (PE), Rheumatoid Arthritis (RA) Additional Past Medical History / Comment(s): 2014 R sided PE, bilateral chronic lung nodules, "leaky heart valve", BPH, skin cancer with removals, malignant colon polyps removed, headaches since CHI, bilateral cataracts. History of Any Multi-Drug Resistant Organisms: None Reported Past Surgical History: Appendectomy, Cholecystectomy, Heart Catheterization, Joint Replacement, Orthopedic Surgery Additional Past Surgical History / Comment(s): R knee arthroscopy, bilateral total knee arthroplasties, R shoulder rotator cuff repair, total L shoulder, bilateral elbow surgery, R hand partial amputation d/t injury, colonoscopy with 2 cancerous polypectomies, skin cancer removed, EGD Past Anesthesia/Blood Transfusion Reactions: No Reported Reaction Additional Past Anesthesia/Blood Transfusion Reaction / Comment(s): Pt has never recieved blood. Past Psychological History: No Psychological Hx Reported Additional Psychological History / Comment(s): Pt resides with his spouse. He is independent. Smoking Status: Former smoker Past Alcohol Use History: None Reported Additional Past Alcohol Use History / Comment(s): Pt started smoking in 1973, mostly cigars and quit in 1993. Past Drug Use History: None Reported - Past Family History Son(s) Family Medical History: Deep Vein Thrombosis (DVT) Father Family Medical History: Cancer Additional Family Medical History / Comment(s): Father of lymphoma at age 70 yrs. Mother Family Medical History: Cancer Additional Family Medical History / Comment(s): Mother had breast cancer. She at age 88yrs. Medications and Allergies Home Medications Medication Instructions Recorded Confirmed Type Cholecalciferol (Vitamin D3) 2,000 unit PO DAILY 02/19/18 01/21/20 History [Vitamin D3] Atorvastatin [Lipitor] 20 mg PO HS 11/25/18 01/21/20 History Meloxicam [Mobic] 15 mg PO DAILY 01/21/20 01/21/20 History Naproxen Sodium [Aleve] 440 mg PO HS 01/21/20 01/21/20 History predniSONE 5 mg PO DAILY 01/21/20 01/21/20 History Allergies Allergy/AdvReac Type Severity Reaction Status Date / Time No Known Allergies Allergy Verified 01/21/20 10:19 Physical Exam Vitals: Vital Signs Temp Pulse Resp BP Pulse Ox 01/21/20 12:27 70 16 117/71 97 01/21/20 10:00 75 20 109/67 96 01/21/20 09:56 75 20 109/67 96 01/21/20 08:56 20 01/21/20 08:53 97.7 F 64 18 93/57 96 Intake and Output 01/20/20 01/21/20 01/21/20 22:59 06:59 14:59 Other: Weight 97.976 kg Physical Exam: Revealed a 75-year-old white male, in no distress. Very pleasant. Head: Atraumatic, normocephalic. HEENT:[Neck is supple.] [No neck masses.] [No thyromegaly.] [No JVD.] PERRLA, EOMI, no icterus, no neck masses, no JVD. Chest: [Symmetrical chest expansion, diminished breath sound bilaterally no crackles or rhonchi or wheezes.] Cardiac Exam: [Normal S1 and S2, no S3 gallop, 2/6 systolic murmur thought the precordium. Abdomen: [Soft, nontender, no megaly, no rebound, no guarding, normal bowel sounds.] Extremities: [No clubbing, no edema, no cyanosis.] Evidence of transverse metacarpal fracture noted in the right hand. Neurological Exam: [No focal neurologic deficit.] Alert and oriented 3. Psychiatric: Normal mood, affect and normal mental status examination. Skin: No rashes, no erythema. No petechiae. Lymphatics: No lymphadenopathy, no cervical or supraclavicular lymph nodes palpable. Results - Laboratory Findings CBC and BMP: 01/21/20 09:45 01/21/20 09:45 PT/INR, D-dimer PT 10.6 sec (9.0-12.0) 01/21/20 09:45 INR 1.0 (<1.2) 01/21/20 09:45 D-Dimer 1.65 mg/L FEU (<0.60) H 01/21/20 09:45 Abnormal lab findings: Abnormal Labs 01/21/20 01/21/20 01/21/20 09:45 09:45 09:45 WBC 10.9 H D-Dimer 1.65 H BUN Creatinine Glucose Total Bilirubin Alkaline Phosphatase Creatine Kinase Urine Protein 1+ H Urine Blood Moderate H Urine Bilirubin 1+ H Ur Leukocyte Esterase Large H Urine RBC 109 H Urine WBC 19 H Calcium Oxalate Crystal Occasional H Urine Bacteria Rare H Hyaline Casts 10 H Urine Mucus Many H 01/21/20 09:45 WBC D-Dimer BUN 33 H Creatinine 1.35 H Glucose 149 H Total Bilirubin 1.4 H Alkaline Phosphatase 175 H Creatine Kinase 33 L Urine Protein Urine Blood Urine Bilirubin Ur Leukocyte Esterase Urine RBC Urine WBC Calcium Oxalate Crystal Urine Bacteria Hyaline Casts Urine Mucus - Diagnostic Findings CT scan - chest: image reviewed (As noted in HPI, masslike consolidation in the right hilar area.) Assessment and Plan Assessment: Impression: Masslike consolidation in the right hilar area, differential diagnoses includes pneumonia and/or malignancy. This finding is a new compared to CT of the chest in May of 2019. History of chronic pulmonary nodules/nonspecific unchanged based on CT of the chest today and compared to previous CT of the chest in May of 2019. History of rheumatoid arthritis. Ex-smoker. Asymptomatic urinary tract infection. Cultures are pending. Acute kidney injury with creatinine of 1.35, baseline in May of 2019 was 0.98. Possibly prerenal azotemia. Recommendation: Discussed with the patient and his the findings on the CT of the chest and on the chest x-ray. And discussed the option of bronchoscopy and transbronchial biopsy, both are agreeable to proceed. Discussed the risk and benefits of the procedure, and again both are agreeable to proceed. Patient will be scheduled for bronchoscopy and transbronchial biopsy tomorrow. Will could be kept nothing by mouth after midnight. Continue antibiotics in the form of Zithromax and Rocephin. Continue bronchodilators. Continue to monitor renal profile considering the patient just had a CT angiogram of the chest. Hydrate patient. Will follow. Time with Patient: Greater than 30
[2020-01-21] MEDS: HEPARIN SODIUM,PORCINE 5,000 UNIT/ML 1 ML VIAL SQ SCH (18:08)
[2020-01-21] MEDS: ACETAMINOPHEN TAB 325 MG TAB PO PRN (22:02)
[2020-01-21] MEDS: ATORVASTATIN 20 MG TAB PO SCH (22:02)
[2020-01-22] MEDS: SODIUM CHLORIDE 0.9% 1,000 ML IV SCH ×3 (00:11→21:41)
[2020-01-22] MEDS: HEPARIN SODIUM,PORCINE 5,000 UNIT/ML 1 ML VIAL SQ SCH ×3 (00:32→16:23)
[2020-01-22] MEDS: predniSONE 5 MG TAB PO SCH (08:32)
[2020-01-22] MEDS: AZITHROMYCIN 500 MG TAB PO SCH (08:33)
[2020-01-22] MEDS ORDERED: ENOXAPARIN 40 MG/0.4 ML SYRINGE SQ SCH (09:00)
--- NOTE | 2020-01-22 09:02 | XR ---
EXAMINATION TYPE: XR chest 2V DATE OF EXAM: 01/22/2020 COMPARISON: 01/21/2020 TECHNIQUE: PA and lateral views submitted. HISTORY: Cough FINDINGS: Large area of consolidation right upper lobe could be on the basis of pneumonia or mass. Right basila r consolidation and small effusion. Biapical pleural thickening. Postsurgical change left shoulder. H ypertrophic and degenerative change of the spine. IMPRESSION: 1. Large area of consolidation right upper lobe correlate for pneumonia. Hilar mass or adenopathy in the differential diagnosis.
[2020-01-22 10:36] LABS: Calcium 8.6 mg/dL (8.4-10.2); Potassium 4.9 mmol/L (3.5-5.1)
[2020-01-22 10:36] LABS: HCT 43.6 % (39.0-53.0); HGB 14.3 gm/dL (13.0-17.5); MCHC 32.7 g/dL (31.0-37.0); MCV 88.6 fL (80.0-100.0); Mean Platelet Volume 9.6; Platelet Count 235 k/uL (150-450); RBC 4.93 m/uL (4.30-5.90); RDW 13.8 % (11.5-15.5); WBC 9.9 k/uL (3.8-10.6)
--- NOTE | 2020-01-22 11:28 | P.PN ---
Subjective Progress Note Date: 01/22/20 Principal diagnosis: Right hilar masslike consolidation, pneumonia versus malignancy This is a 75-year-old white male with history of rheumatoid arthritis, chronic bilateral pulmonary nodules remote history of pulmonary embolism in 2015, and history of valvular heart disease. Patient has been seen in our office over 8 years ago for nonspecific pulmonary nodules. Over the last few days, the patient has been complaining of fever, weakness, cough which is productive with yellow phlegm, but no hemoptysis. Patient was evaluated and a chest x-ray showed right hilar midlung lesion, suspicious for underlying malignancy although the possibility of pneumonia is not entirely ruled out. CT of the chest showed masslike consolidation in the right hilar area with minimal bronchogram noted in the abnormality. Again the radiologist raised the possibility of malignancy and/or pneumonia. Patient was admitted, placed on Rocephin and Zithromax, and I was asked to see him on consultation. After reviewing the patient's CT of the chest and chest x-ray, I discussed with the patient and his the options of treatment and follow-up x-ray or CT of the chest in the next few months, I also gave him the option of bronchoscopy and transbronchial biopsy to be done tomorrow. Both are agreeable to bronchoscopy and transbronchial biopsy which will be done tomorrow at noontime. In the meantime we will treat the patient with Rocephin and Zithromax. Patient describes some 8 pound weight loss in the last 6 months. Denies any other major symptoms. The patient is seen today 01/22/2020 in follow-up on the regular medical floor. He is awake and alert in no acute distress. No worsening shortness of breath cough or congestion. No fever, chills or night sweats. He is maintaining good O2 saturations in the mid 90s on room air. He's been hemodynamically stable. Urine culture pending. White count 9.9. Hemoglobin 14.3. Sodium 137. Potassium 4.9. Bicarb 17. Creatinine 1.06. Sun virus not detected. He remains on ceftriaxone and azithromycin. Plan is for bronchoscopy with BAL and biopsies today. Objective - Vital Signs Vital signs: Vital Signs Temp 99.2 F 01/22/20 10:43 Pulse 92 01/22/20 10:43 Resp 19 01/22/20 10:43 BP 111/65 07/03/20 10:43 Pulse Ox 95 01/22/20 10:43 Intake & Output 01/21/20 01/22/20 01/22/20 18:59 06:59 18:59 Weight 97.976 kg 97.976 kg Other: Voiding Method Toilet # Voids 1 - Exam GENERAL EXAM: Alert, active, pleasant 75-year-old gentleman, on room air, comfortable in no apparent distress. HEAD: Normocephalic. EYES: Normal reaction of pupils, equal size. NOSE: Clear with pink turbinates. THROAT: No erythema or exudates. NECK: No masses, no JVD. CHEST: No chest wall deformity. LUNGS: Equal air entry with few scattered rhonchi in the left lung. CVS: S1 and S2 normal with no audible murmur, regular rhythm. ABDOMEN: No hepatosplenomegaly, normal bowel sounds, no guarding or rigidity. SPINE: No scoliosis or deformity SKIN: No rashes CENTRAL NERVOUS SYSTEM: No focal deficits, tone is normal in all 4 extremities. EXTREMITIES: There is missing fingers of the right hand. There is no peripheral edema. No clubbing, no cyanosis. Peripheral pulses are intact. - Labs CBC & Chem 7: 01/22/20 08:10 01/22/20 09:52 Labs: Abnormal Lab Results - Last 24 Hours (Table) 01/22/20 Range/Units 09:52 Chloride 111 H (98-107) mmol/L Carbon Dioxide 17 L (22-30) mmol/L BUN 34 H (9-20) mg/dL Microbiology - Last 24 Hours (Table) 01/21/20 09:45 Urine Culture - Preliminary Urine,Voided Assessment and Plan Assessment: Masslike consolidation in the right hilar area, differential diagnoses includes pneumonia and/or malignancy. This finding is a new compared to CT of the chest in May of 2019. History of chronic pulmonary nodules/nonspecific unchanged based on CT of the chest today and compared to previous CT of the chest in May of 2019. History of rheumatoid arthritis. Ex-smoker. Asymptomatic urinary tract infection. Cultures are pending. Acute kidney injury with creatinine improved to 1.06 Plan: The patient was seen and evaluated by Dr. Mendenhall Continue current medications for now Bronchoscopy with BAL and biopsies today We'll make further recommendations based on these findings I, the cosigning physician, performed a history & physical examination of the patient. Lungs sounds with few scattered rhonchi in the left lung. Maintaining good O2 saturations in the 90s on room air. I discussed the assessment and plan of care with my nurse practitioner, Stacia Barry. I attest to the above note as dictated by her.
[2020-01-22 12:44] VITALS: BMI 28.5
[2020-01-22] MEDS ORDERED: LIDOCAINE 1% INJ 10MG/ML (20 ML MDV) ONE (13:00)
[2020-01-22] MEDS ORDERED: IV FLUID CONTINUATION 1,000 ML IV ONE (13:00)
[2020-01-22] MEDS ORDERED: fentaNYL (PF) 50 MCG/ML 2 ML AMP ONE (13:00)
[2020-01-22] MEDS ORDERED: PROPOFOL 10 MG/ML 20 ML VIAL IV ONE (13:00)
[2020-01-22] MEDS ORDERED: MIDAZOLAM 2 MG/2 ML VIAL ONE (13:00)
[2020-01-22] MEDS ORDERED: SUCCINYLCHOLINE CHLORIDE 100 MG/5 ML SYR IV ONE (13:00)
--- NOTE | 2020-01-22 14:09 | XR ---
EXAMINATION TYPE: XR chest 1V portable DATE OF EXAM: 01/22/2020 COMPARISON: 01/22/2020 HISTORY: Post bronchoscopy TECHNIQUE: Single frontal view of the chest is obtained. FINDINGS: No sizable pneumothorax. Large area of consolidation are noted in the right upper lobe. Hi lar or mass or adenopathy suspected. Arthropathy of the shoulders with diffuse osteopenia and postsur gical change of the left. Biapical pleural thickening. Heart size stable. Hypertrophic change of the spine. Subsegmental changes at the right lung base with tiny effusion or pleural thickening. IMPRESSION: 1. No pneumothorax. 2. Persistent large area of consolidation or mass involving the right upper lobe and right hilum.
--- NOTE | 2020-01-22 14:11 | FL ---
EXAMINATION TYPE: FL bronchoscopy DATE OF EXAM: 01/22/2020 COMPARISON: NONE HISTORY: Fluoroscopy time TECHNIQUE: Fluoroscopy. FINDINGS: Fluoroscopic guidance was provided during procedure of 2 minutes and 2 seconds. IMPRESSION: As Above.
--- NOTE | 2020-01-22 17:45 | PCN ---
PROCEDURE NOTE PROCEDURE PERFORMED: Bronchoscopy and transbronchial biopsies of the right upper lobe, brushings of the right upper lobe, and bronchoalveolar lavage of the right upper lobe anterior segment. PREOPERATIVE DIAGNOSIS: Mass like consolidation in the right upper lobe. Differential diagnosis includes bronchogenic carcinoma and pneumonia. POSTOP DIAGNOSIS: Mass like consolidation in the right upper lobe. Differential diagnosis includes bronchogenic carcinoma and pneumonia. ANESTHESIA: The patient was given a general anesthesia. PROCEDURE DETAILS: The patient was prepared according the bronchoscopy protocol. He was brought into the endoscopy room 1, and the patient was intubated by the BRAND LE[employer]. We monitored his O2 saturation continuously, blood pressure was intermittently monitored and cardiac rhythm was continuously monitored. Then the bronchoscope was advanced through the adapter of the endotracheal tube down to the area of the marivel. The marivel was noted to be sharp. Thorough examination was done of the right upper lobe, right middle lobe, right lower lobe, left upper lobe lingula and left lower lobe. There was no evidence of any endobronchial tumors or endobronchial lesions. Then brushing was done of the anterior segment of the right upper lobe using fluoroscopy guidance. After that, multiple transbronchial biopsies were done under fluoroscopy guidance of the right upper lobe masslike consolidation. Bronchoalveolar lavage was also done of the anterior segment of the right upper lobe. The specimens were sent for different diagnostic studies. The procedure was well tolerated, no evidence of any immediate complications. Blood loss was minimal during the procedure. Chest x-ray was ordered postoperatively. MMODL / IJN: [id number] /
[2020-01-22] MEDS ORDERED: IPRATROPIUM-ALBUTEROL 3 ML NEB INHALATION PRN (19:56)
[2020-01-22] MEDS: IPRATROPIUM-ALBUTEROL 3 ML NEB INHALATION SCH (20:31)
[2020-01-22] MEDS: ATORVASTATIN 20 MG TAB PO SCH (21:40)
[2020-01-22] MEDS: ACETAMINOPHEN TAB 325 MG TAB PO PRN (21:40)
--- NOTE | 2020-01-22 21:42 | PN ---
PROGRESS NOTE DATE OF SERVICE: 01/22/2020 This 74-year-old gentleman admitted with possible pneumonia on the right side with masslike consolidation. Patient denies symptoms for the recent duration. 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 Dr. Mendenhall performed a bronchoscopy and as well as a biopsy. The bronchoscopy showed no evidence of any endobronchial tumor or endobronchial lesions. [place] biopsy was done. Multiple transbronchial biopsies also done under fluoroscopic guidance. Bronchial lavage was done. The patient closely monitored. Most recent chest x-ray done after the procedure, which was reviewed personally by me showed persistent shadows in the right middle lobe and around the perihilar area. Past medical history reviewed. REVIEW OF SYSTEMS: CARDIOVASCULAR SYSTEM: No angina, palpitations. RESPIRATORY SYSTEM: As mentioned earlier. GI no nausea/vomiting or diarrhea. no dysuria. Nervous system: No numbness or weakness. CURRENT MEDICATIONS: Tylenol. Coumadin, Lipitor, Zithromax, Rocephin, vitamin D3, heparin, Mobic, and prednisone. PHYSICAL EXAM: Patient is alert, oriented x3. Pulse is 80. Blood pressure is 190/63, respiration 20, temperature normal, pulse ox is 94% on room air. HEENT: Conjunctivae normal. NECK: No JVD. CARDIOVASCULAR: S1, S2 muffled. RESPIRATORY: Breath sounds diminished in the bases. A few scattered rhonchi and crackles. ABDOMEN: Soft, nontender. Legs are no edema. No swelling. NERVOUS SYSTEM: No focal deficits. LABS: WBC 10.9, sodium 139, potassium 5, creatinine is 1.35. Total bilirubin is 1.4. Creatinine kinase is normal. Alkaline phosphatase 175. UA shows some hematuria. Chest x-ray reviewed. ASSESSMENT: 1. Acute right-sided pneumonia possibly postobstructive, possibly gram-negative. Rule out bronchogenic carcinoma status post bronchoscopy. 2. Increased creatinine with acute renal failure, present on admission secondary to acute tubular necrosis. 3. Increased WBC present on admission. 4. Possible underlying chronic obstructive pulmonary disease. 5. History of hyperlipidemia. 6. History of pulmonary embolism. 7. History rheumatoid arthritis. 8. History of bilateral chronic lung nodules. 9. History of leaky valve. 10.History of benign prostatic hypertrophy. 11.History of bilateral cataracts. 12.Cholecystectomy. 13.History of cardiac cath. 14.History of degenerative joint disease. 15.Remote history of nicotine dependence. 16.FULL CODE. RECOMMENDATIONS AND DISCUSSION: This 74-year-old gentleman who presented with multiple medical issues, we will monitor the patient closely, continue the current medications, and symptomatic treatment. BMP is only 98. Continue the current the broad-spectrum antibiotics. Follow the cultures. DVT prophylaxis. Also recommend a course of bronchodilators. We will follow the patient closely with Pulmonary. Guarded prognosis because of multiple complex medical issues and further recommendations to follow. Stop the IV fluids. MMODL / IJN: [id number] /
[2020-01-23] MEDS: HEPARIN SODIUM,PORCINE 5,000 UNIT/ML 1 ML VIAL SQ SCH ×4 (00:26→23:54)
[2020-01-23] MEDS: MELOXICAM 7.5 MG TAB PO SCH (07:45)
[2020-01-23] MEDS: CHOLECALCIFEROL 1,000 UNIT TAB PO SCH (07:45)
[2020-01-23] MEDS: AZITHROMYCIN 500 MG TAB PO SCH (07:45)
[2020-01-23] MEDS: predniSONE 5 MG TAB PO SCH (07:45)
[2020-01-23] MEDS: IPRATROPIUM-ALBUTEROL 3 ML NEB INHALATION SCH ×3 (07:57→19:55)
[2020-01-23 08:03] VITALS: RESP 16
[2020-01-23 09:22] LABS: Basophils % (A) 0 %; Eosinophils # (A) 0.1 k/uL (0-0.7); Eosinophils % (A) 1 %; HCT 39.8 % (39.0-53.0); HGB 12.9 gm/dL (13.0-17.5); Lymphocytes % (A) 26 %; MCH 28.8 pg (25.0-35.0); MCHC 32.5 g/dL (31.0-37.0); MCV 88.7 fL (80.0-100.0); Mean Platelet Volume 8.3; Monocytes # (A) 0.3 k/uL (0-1.0); Monocytes % (A) 4 %; Neutrophils # (A) 5.3 k/uL (1.3-7.7); Neutrophils % (A) 69 %; Platelet Count 231 k/uL (150-450); RBC 4.48 m/uL (4.30-5.90); WBC 7.8 k/uL (3.8-10.6)
[2020-01-23 09:35] LABS: Calcium 8.2 mg/dL (8.4-10.2); Potassium 4.3 mmol/L (3.5-5.1)
--- NOTE | 2020-01-23 13:02 | P.PN ---
Subjective Progress Note Date: 01/23/20 Principal diagnosis: Right hilar masslike consolidation, pneumonia versus malignancy This is a 75-year-old white male with history of rheumatoid arthritis, chronic bilateral pulmonary nodules remote history of pulmonary embolism in 2015, and history of valvular heart disease. Patient has been seen in our office over 8 years ago for nonspecific pulmonary nodules. Over the last few days, the patient has been complaining of fever, weakness, cough which is productive with yellow phlegm, but no hemoptysis. Patient was evaluated and a chest x-ray showed right hilar midlung lesion, suspicious for underlying malignancy although the possibility of pneumonia is not entirely ruled out. CT of the chest showed masslike consolidation in the right hilar area with minimal bronchogram noted in the abnormality. Again the radiologist raised the possibility of malignancy and/or pneumonia. Patient was admitted, placed on Rocephin and Zithromax, and I was asked to see him on consultation. After reviewing the patient's CT of the chest and chest x-ray, I discussed with the patient and his the options of treatment and follow-up x-ray or CT of the chest in the next few months, I also gave him the option of bronchoscopy and transbronchial biopsy to be done tomorrow. Both are agreeable to bronchoscopy and transbronchial biopsy which will be done tomorrow at noontime. In the meantime we will treat the patient with Rocephin and Zithromax. Patient describes some 8 pound weight loss in the last 6 months. Denies any other major symptoms. The patient is seen today 01/22/2020 in follow-up on the regular medical floor. He is awake and alert in no acute distress. No worsening shortness of breath cough or congestion. No fever, chills or night sweats. He is maintaining good O2 saturations in the mid 90s on room air. He's been hemodynamically stable. Urine culture pending. White count 9.9. Hemoglobin 14.3. Sodium 137. Potassium 4.9. Bicarb 17. Creatinine 1.06. Sun virus not detected. He remains on ceftriaxone and azithromycin. Plan is for bronchoscopy with BAL and biopsies today. The patient is seen today 01/23/2020 in follow-up on the regular medical floor. He is awake and alert in no acute distress. Resting quite comfortably in bed. Denies any worsening shortness of breath cough or congestion. He is maintaining O2 saturations in the 90s on room air. He is afebrile however he's been having chills today. Blood culture reveals no growth. Bronchial wash cultures and fluid analysis are pending. Cytology pending. White count 7.8. Hemoglobin 12.9. Sodium 136. Bicarb 20. Creatinine 1.07. He remains on ceftriaxone and azithromycin along with bronchodilators. Objective - Vital Signs Vital signs: Vital Signs Temp 98.2 F 01/23/20 07:00 Pulse 82 01/23/20 08:10 Resp 16 01/23/20 07:00 BP 162/68 01/23/20 07:00 Pulse Ox 97 01/23/20 07:00 Intake & Output 01/22/20 01/23/20 01/23/20 18:59 06:59 18:59 Intake Total 1140 200 Output Total 200 Balance 1140 -200 200 Weight 97.976 kg Intake: IV 600 Oral 540 200 Output: Urine 200 Other: Voiding Method Toilet Toilet Urinal Incontinent # Voids 1 1 - Exam GENERAL EXAM: Alert, active, pleasant 75-year-old gentleman, on room air, comfortable in no apparent distress. HEAD: Normocephalic. EYES: Normal reaction of pupils, equal size. NOSE: Clear with pink turbinates. THROAT: No erythema or exudates. NECK: No masses, no JVD. CHEST: No chest wall deformity. LUNGS: Equal air entry with few scattered rhonchi in the left lung. CVS: S1 and S2 normal with no audible murmur, regular rhythm. ABDOMEN: No hepatosplenomegaly, normal bowel sounds, no guarding or rigidity. SPINE: No scoliosis or deformity SKIN: No rashes CENTRAL NERVOUS SYSTEM: No focal deficits, tone is normal in all 4 extremities. EXTREMITIES: There is missing fingers of the right hand. There is no peripheral edema. No clubbing, no cyanosis. Peripheral pulses are intact. - Labs CBC & Chem 7: 01/23/20 08:59 01/23/20 08:59 Labs: Abnormal Lab Results - Last 24 Hours (Table) 01/23/20 01/23/20 Range/Units 08:59 08:59 Hgb 12.9 L (13.0-17.5) gm/dL Sodium 136 L (137-145) mmol/L Chloride 111 H (98-107) mmol/L Carbon Dioxide 20 L (22-30) mmol/L BUN 37 H (9-20) mg/dL Glucose 135 H (74-99) mg/dL Calcium 8.2 L (8.4-10.2) mg/dL Microbiology - Last 24 Hours (Table) 01/21/20 11:59 Blood Culture - Preliminary Blood No Growth after 24 hours 01/21/20 09:45 Urine Culture - Final Urine,Voided Assessment and Plan Assessment: Masslike consolidation in the right hilar area, differential diagnoses includes pneumonia and/or malignancy. This finding is a new compared to CT of the chest in May of 2019. Status post bronchoscopy with BAL and biopsies on 01/22/2020. Cytology pending. History of chronic pulmonary nodules/nonspecific unchanged based on CT of the chest today and compared to previous CT of the chest in May of 2019. History of rheumatoid arthritis. Ex-smoker. Asymptomatic urinary tract infection. Cultures are pending. Acute kidney injury with creatinine improved to 1.07 Plan: The patient was seen and evaluated by Dr. Mendenhall Continue current medications for now Bronchoscopy with BAL and biopsies performed yesterday, cytology pending We'll continue to follow make further recommendations based on his clinical status Probable discharge in the a.m. I, the cosigning physician, performed a history & physical examination of the patient. Lungs sounds with few scattered rhonchi in the left lung. Maintaining good O2 saturations in the 90s on room air. I discussed the assessment and plan of care with my nurse practitioner, Stacia Barry. I attest to the above note as dictated by her.
[2020-01-23] MEDS: ATORVASTATIN 20 MG TAB PO SCH (19:32)
[2020-01-23] MEDS: ACETAMINOPHEN TAB 325 MG TAB PO PRN (19:33)
--- NOTE | 2020-01-23 21:21 | PN ---
PROGRESS NOTE DATE OF SERVICE: 01/23/2020 This 75-year-old gentleman admitted with possible postobstructive pneumonia is being closely monitored. Patient had a bronchoscopy by Dr. Mendenhall. No chest pain. No palpitations. No fever. PHYSICAL EXAMINATION: Alert and oriented x3. Pulse 72, blood pressure 130/76, respirations 16, temperature 99.7, pulse ox 94% on room air. HEENT: Conjunctivae normal. Oral mucosa moist. NECK: No jugular venous distention. No lymph node enlargement. CARDIOVASCULAR: S1, S2, muffled. No S3, no S4, RESPIRATORY: Diminished breath sounds at the bases. A few scattered rhonchi and crackles. ABDOMEN: Soft, nontender. LEGS: No edema, no swelling. NERVOUS SYSTEM: No focal motor or sensory deficits. LABS: WBC 7.3, hemoglobin 12.9, sodium 136, CO2 is 20, and glucose 135. ASSESSMENT: 1. Acute right-sided pneumonia, possibly postobstructive, possibly gram-negative. Rule out bronchogenic carcinoma status post bronchoscopy. 2. Increased creatinine with acute renal failure present on admission secondary to acute tubular necrosis. 3. Increased WBC present on admission. 4. Possible underlying chronic obstructive pulmonary disease. 5. Hyperlipidemia. 6. History of pulmonary embolism. 7. History rheumatoid arthritis. 8. History of bilateral chronic lung nodules. 9. History of leaky valve. 10.History of benign prostatic hypertrophy. 11.History of bilateral cataracts. 12.History of cholecystectomy. 13.History of cardiac catheterization. 14.History of degenerative joint disease. 15.Remote history of nicotine dependence. 16.FULL CODE. RECOMMENDATIONS AND DISCUSSION: I recommend to continue current management. Continue the bronchodilators, continue the antibiotics. Closely monitor. Follow the cultures. Follow the biopsy report. Guarded prognosis. Further recommendations to follow. MMODL / IJN: [id number] /
[2020-01-24 08:15] VITALS: BP 120/70; TEMP 98.2
[2020-01-24] MEDS: MELOXICAM 7.5 MG TAB PO SCH (08:21)
[2020-01-24] MEDS: CHOLECALCIFEROL 1,000 UNIT TAB PO SCH (08:22)
[2020-01-24] MEDS: HEPARIN SODIUM,PORCINE 5,000 UNIT/ML 1 ML VIAL SQ SCH (08:22)
[2020-01-24] MEDS: predniSONE 5 MG TAB PO SCH (08:22)
[2020-01-24] MEDS: IPRATROPIUM-ALBUTEROL 3 ML NEB INHALATION SCH ×2 (08:28→11:12)
[2020-01-24 09:00] LABS: Basophils % (A) 0 %; Eosinophils # (A) 0.1 k/uL (0-0.7); Eosinophils % (A) 1 %; HCT 37.6 % (39.0-53.0); HGB 12.3 gm/dL (13.0-17.5); Lymphocytes # (A) 1.2 k/uL (1.0-4.8); Lymphocytes % (A) 17 %; MCH 28.8 pg (25.0-35.0); MCHC 32.8 g/dL (31.0-37.0); MCV 87.8 fL (80.0-100.0); Mean Platelet Volume 8.1; Monocytes # (A) 0.3 k/uL (0-1.0); Monocytes % (A) 4 %; Neutrophils # (A) 5.2 k/uL (1.3-7.7); Neutrophils % (A) 77 %; Platelet Count 261 k/uL (150-450); RBC 4.28 m/uL (4.30-5.90); RDW 13.8 % (11.5-15.5); WBC 6.8 k/uL (3.8-10.6)
[2020-01-24 09:18] LABS: African American GFR (CKD) >90 (>60 ml/min/1.73 sqM); Anion Gap 4 mmol/L; Blood Urea Nitrogen 29 mg/dL (9-20); Calcium 8.1 mg/dL (8.4-10.2); Carbon Dioxide 22 mmol/L (22-30); Chloride 111 mmol/L (98-107); Glucose 133 mg/dL (74-99); Non-African American GFR(CKD) 85 (>60 ml/min/1.73 sqM); Potassium 4.4 mmol/L (3.5-5.1); Sodium 137 mmol/L (137-145)
[2020-01-24] MEDS: AZITHROMYCIN 500 MG TAB PO SCH (10:26)
[2020-01-24 11:15] VITALS: PULSE 80
--- NOTE | 2020-01-24 12:15 | P.PN ---
Subjective Progress Note Date: 01/24/20 Principal diagnosis: Right hilar masslike consolidation, pneumonia versus malignancy This is a 75-year-old white male with history of rheumatoid arthritis, chronic bilateral pulmonary nodules remote history of pulmonary embolism in 2015, and history of valvular heart disease. Patient has been seen in our office over 8 years ago for nonspecific pulmonary nodules. Over the last few days, the patient has been complaining of fever, weakness, cough which is productive with yellow phlegm, but no hemoptysis. Patient was evaluated and a chest x-ray showed right hilar midlung lesion, suspicious for underlying malignancy although the possibility of pneumonia is not entirely ruled out. CT of the chest showed masslike consolidation in the right hilar area with minimal bronchogram noted in the abnormality. Again the radiologist raised the possibility of malignancy and/or pneumonia. Patient was admitted, placed on Rocephin and Zithromax, and I was asked to see him on consultation. After reviewing the patient's CT of the chest and chest x-ray, I discussed with the patient and his the options of treatment and follow-up x-ray or CT of the chest in the next few months, I also gave him the option of bronchoscopy and transbronchial biopsy to be done tomorrow. Both are agreeable to bronchoscopy and transbronchial biopsy which will be done tomorrow at noontime. In the meantime we will treat the patient with Rocephin and Zithromax. Patient describes some 8 pound weight loss in the last 6 months. Denies any other major symptoms. The patient is seen today 01/22/2020 in follow-up on the regular medical floor. He is awake and alert in no acute distress. No worsening shortness of breath cough or congestion. No fever, chills or night sweats. He is maintaining good O2 saturations in the mid 90s on room air. He's been hemodynamically stable. Urine culture pending. White count 9.9. Hemoglobin 14.3. Sodium 137. Potassium 4.9. Bicarb 17. Creatinine 1.06. Sun virus not detected. He remains on ceftriaxone and azithromycin. Plan is for bronchoscopy with BAL and biopsies today. The patient is seen today 01/23/2020 in follow-up on the regular medical floor. He is awake and alert in no acute distress. Resting quite comfortably in bed. Denies any worsening shortness of breath cough or congestion. He is maintaining O2 saturations in the 90s on room air. He is afebrile however he's been having chills today. Blood culture reveals no growth. Bronchial wash cultures and fluid analysis are pending. Cytology pending. White count 7.8. Hemoglobin 12.9. Sodium 136. Bicarb 20. Creatinine 1.07. He remains on ceftriaxone and azithromycin along with bronchodilators. The patient is seen today 01/24/2020 in follow-up on the regular medical floor. Currently sitting up in a chair at the bedside. Awake and alert in no acute distress. Feeling better today compared to yesterday. No worsening shortness of breath, cough or congestion. No fever, chills or night sweats. Maintaining good O2 saturations in the mid 90s on room air. Blood and urine cultures reveal no growth. Bronchial wash cultures are pending. Cytology pending. White count 6.8. Hemoglobin 12.3. Sodium 137. Potassium 4.4. Creatinine 0.87. Objective - Vital Signs Vital signs: Vital Signs Temp 98.2 F 01/24/20 07:53 Pulse 80 01/24/20 11:27 Resp 16 01/24/20 07:53 BP 120/70 01/24/20 07:53 Pulse Ox 95 01/24/20 07:53 Intake & Output 01/23/20 01/24/20 01/24/20 18:59 06:59 18:59 Intake Total 400 50 Balance 400 50 Intake: Intake, IV Titration 50 Amount cefTRIAXone 1 gm In 50 Sodium Chloride 0.9% 50 ml @ 100 mls/hr IVPB Q24HR [facility] Rx#:[id number] Oral 400 Other: # Voids 2 2 # Bowel Movements 1 - Exam GENERAL EXAM: Alert, active, pleasant 75-year-old gentleman, on room air, comfortable in no apparent distress. HEAD: Normocephalic. EYES: Normal reaction of pupils, equal size. NOSE: Clear with pink turbinates. THROAT: No erythema or exudates. NECK: No masses, no JVD. CHEST: No chest wall deformity. LUNGS: Equal air entry with few scattered rhonchi in the left lung. CVS: S1 and S2 normal with no audible murmur, regular rhythm. ABDOMEN: No hepatosplenomegaly, normal bowel sounds, no guarding or rigidity. SPINE: No scoliosis or deformity SKIN: No rashes CENTRAL NERVOUS SYSTEM: No focal deficits, tone is normal in all 4 extremities. EXTREMITIES: There is missing fingers of the right hand. There is no peripheral edema. No clubbing, no cyanosis. Peripheral pulses are intact. - Labs CBC & Chem 7: 01/24/20 08:40 01/24/20 08:40 Labs: Abnormal Lab Results - Last 24 Hours (Table) 01/24/20 01/24/20 Range/Units 08:40 08:40 RBC 4.28 L (4.30-5.90) m/uL Hgb 12.3 L (13.0-17.5) gm/dL Hct 37.6 L (39.0-53.0) % Chloride 111 H (98-107) mmol/L BUN 29 H (9-20) mg/dL Glucose 133 H (74-99) mg/dL Calcium 8.1 L (8.4-10.2) mg/dL Microbiology - Last 24 Hours (Table) 01/21/20 11:59 Blood Culture - Preliminary Blood No Growth after 48 hours Assessment and Plan Assessment: Masslike consolidation in the right hilar area, differential diagnoses includes pneumonia and/or malignancy. This finding is a new compared to CT of the chest in May of 2019. Status post bronchoscopy with BAL and biopsies on 01/22/2020. Cytology pending. History of chronic pulmonary nodules/nonspecific unchanged based on CT of the chest today and compared to previous CT of the chest in May of 2019. History of rheumatoid arthritis. Ex-smoker. Asymptomatic urinary tract infection. Cultures are pending. Acute kidney injury with creatinine improved to 1.07 Plan: The patient was seen and evaluated by Dr. Mendenhall He is cleared for discharge from the pulmonary standpoint Complete a course of antibiotics Follow-up in the office with Dr. Mendenhall at the end of this week I, the cosigning physician, performed a history & physical examination of the patient. Lungs sounds with few scattered rhonchi in the left lung. Maintaining good O2 saturations in the 90s on room air. I discussed the assessment and plan of care with my nurse practitioner, Stacia Barry. I attest to the above note as dictated by her.
[2020-01-25 02:24] LABS: Mycoplasma IgG Antibody (EIA) 1.72 INDEX (<=0.90); Mycoplasma IgM Antibody 0.35 INDEX (<=0.90)
--- NOTE | 2020-01-25 10:28 | DS ---
DISCHARGE SUMMARY DATE OF SERVICE: 01/24/2020 FINAL DIAGNOSES: 1. Acute right-sided pneumonia, possibly postobstructive, possibly gram-negative. Rule out bronchogenic carcinoma and status post bronchoscopy. 2. Increased creatinine with acute renal failure, present on admission secondary to acute tubular necrosis. 3. Increased WBC present on admission, improved. 4. Possible underlying chronic obstructive pulmonary disease. 5. Hyperlipidemia. 6. History of pulmonary embolism. 7. History of rheumatoid arthritis. 8. History of bilateral chronic lung nodules. 9. History of leaky valve. 10.History of benign prostatic hypertrophy. 11.History of bilateral cataracts. 12.History of cholecystectomy. 13.History of cardiac catheterization. 14.History of degenerative joint disease. 15.Remote history of nicotine dependence. 16.FULL CODE. DISCHARGE DISPOSITION: The patient will be discharged in a stable condition with guarded prognosis. Total time taken 35 minutes. HISTORY OF PRESENT ILLNESS: This is a 75-year-old gentleman with a past medical history of multiple medical problems as mentioned earlier, being followed by [facility], was admitted with right- sided pneumonia and COPD. Patient was treated symptomatically. Dr. Mendenhall performed a bronchoscopy and biopsy, the results are pending at this time. Otherwise, the patient improved significantly. Dr. Mendenhall recommended outpatient followup. On exam, vitals are stable. CARDIOVASCULAR: S1, S2. ABDOMEN: Soft. NERVOUS SYSTEM: No focal deficits. A few rhonchi heard. DISCHARGE DISPOSITION: Diet is cardiac diet. Activity limited until followup. Follow up with Dr. Mendenhall in 2-3 days. Follow up with the [facility] in 2-3 days. DISCHARGE MEDICATIONS: 1. Aleve 440 mg q.h.s. 2. Lipitor 20 mg q.h.s. 3. Mobic 15 mg daily. 4. Prednisone 5 mg daily. 5. Vitamin D3 two thousand daily. 6. Ceftin 500 mg p.o. b.i.d. for 5 days. 7. Ventolin 2 puffs q.i.d. and p.r.n. 8. Zithromax 500 mg daily for 3 days. Once again, the patient will be discharged in a stable condition with guarded prognosis. MMODL / IJN: [id number] /
== END 2020-01-24 14:33 | disposition home or self-care (01) | DRG 177 ==
LOC: EC 08:49 → 4SSUR 12:32
PROVIDERS: ADMIT Internal Medicine; ATTEND Internal Medicine
PROC: 0B9C8ZX Drainage of Right Upper Lung Lobe, Via Natural or Artificial Opening Endoscopic, Diagnostic (ICD-10-PCS; principal; 2020-01-22 12:30)
PROC: 0BD48ZX Extraction of Right Upper Lobe Bronchus, Via Natural or Artificial Opening Endoscopic, Diagnostic (ICD-10-PCS; principal; 2020-01-22 12:30)
DX: J15.6 Pneumonia due to other Gram-negative bacteria (principal); N17.0 Acute kidney failure with tubular necrosis; J44.0 Chronic obstructive pulmonary disease with (acute) lower respiratory infection; C34.11 Malignant neoplasm of upper lobe, right bronchus or lung; E78.5 Hyperlipidemia, unspecified; Z86.711 Personal history of pulmonary embolism; M06.9 Rheumatoid arthritis, unspecified; N40.0 Benign prostatic hyperplasia without lower urinary tract symptoms; Z96.653 Presence of artificial knee joint, bilateral; I10 Essential (primary) hypertension; R91.8 Other nonspecific abnormal finding of lung field; Z20.828 Contact with and (suspected) exposure to other viral communicable diseases; M19.90 Unspecified osteoarthritis, unspecified site; Z96.612 Presence of left artificial shoulder joint; Z98.890 Other specified postprocedural states; Z87.891 Personal history of nicotine dependence; Z80.3 Family history of malignant neoplasm of breast; Z82.49 Family history of ischemic heart disease and other diseases of the circulatory system; Z79.1 Long term (current) use of non-steroidal anti-inflammatories (NSAID); Z79.52 Long term (current) use of systemic steroids; Z79.899 Other long term (current) drug therapy; Z85.828 Personal history of other malignant neoplasm of skin; Z86.010 Personal history of colon polyps; Z98.42 Cataract extraction status, left eye; Z98.41 Cataract extraction status, right eye; Z87.828 Personal history of other (healed) physical injury and trauma; Z90.49 Acquired absence of other specified parts of digestive tract; Z89.111 Acquired absence of right hand
CPT/HCPCS: 31623; 31624; 31628; 36415; 71045; 71046; 71275; 80048; 80053; 81001; 82550; 83605; 83735; 83880; 84484; 85025; 85027; 85379; 85610; 85730; 86738; 87040; 87070; 87086; 87102; 87116; 87205; 87206; 87449; 88104; 88108; 88305; 93005; 94640; 96361; 96365; 96366; 96375; 99285

== ENCOUNTER → 2020-02-06 | Outpatient (CLI) | payer OTHER, MEDICARE ==
--- NOTE | 2020-02-10 15:55 | PE ---
EXAMINATION TYPE: PET CT fusion skull to thigh DATE OF EXAM: 02/09/2020 COMPARISON: Prior PET/CT May 01, 2014. Prior chest CT January 21, 2020. Prior CT abdomen and pelvis A ugust 2016 HISTORY: Solitary pulmonary nodule, abnormal CT. Right lung bronchoscopy and biopsy January 23, 2020. TECHNIQUE: Following the intravenous administration of 13.57 mCi of F-18 FDG, whole body images are performed from the skull base to the midthigh. Images are reviewed on the computer in the coronal, a xial, and sagittal planes. Reconstructed rotating images are created on independent workstation and reviewed on the computer. A noncontrast CT is performed in conjunction with the PET scan. SCAN: Initial Scan FINDINGS: SKULL BASE AND NECK: No areas of abnormal hypermetabolic uptake. CHEST, MEDIASTINUM, AND HILAR REGION: Background mild underlying emphysematous change. Persistent mas slike consolidation in the right suprahilar multiple with some new central area shows abnormal hyperm etabolic uptake extending to the pleural surface and abutting the mediastinum measuring roughly 6.1 x 5.7 cm-image 88, max SUV is 16.25. Additional suspicious right hilar 1.7 x 1.1 cm hypermetabolic lymph node image 88, max SUV is 4.94. Enlarged but mildly hypermetabolic subcarinal lymph node measures 2.2 x 1.1 cm axial image 96. Nonspe cific max SUV is 2.66. New small to tiny right pleural effusion as ametabolic. ABDOMEN AND PELVIS: Normal excretion is seen. No adrenal masses. Some areas of increased hypermetabol ic uptake throughout the prostate gland should be correlated clinically. No additional areas of abnor mal hypermetabolic uptake. OSSEOUS STRUCTURES: No areas of abnormal hypermetabolic uptake. OTHER CT: Moderate calcified plaque right greater than left bilateral carotid bulb level. Ascending aorta measures up to 3.7 cm in diameter. Enlarged right pulmonary artery. Coronary artery c alcification is present. Bilateral subareolar gynecomastia. Additional subcentimeter dermal based sof t tissue nodule right breast axial image 113 presumed benign. Cholecystectomy clips. Bilateral renal calculi including a 5 mm right renal calculus image 160. Promi nent sigmoid colonic diverticulosis. Abnormal bladder wall thickening and 16 mm bladder calculus. Arash tral and posterior calcifications in enlarged prostate gland. Small fat-containing left inguinal meghan ia. Metallic hardware from left shoulder arthroplasty partially imaged. IMPRESSION: 1. Area right midlung is suspicious for an inflammatory process, neoplasm cannot be excluded. Suspici ous right hilar lymph node. Borderline subcarinal lymph node. Correlate with bronchoscopy results and sampling. No metastatic malignancy. 2. Enlarged prostate with areas of abnormal hypermetabolic uptake, correlate clinically for primary p rostatic neoplasm.
== END | disposition home or self-care (01) ==
LOC: RADPETMAIN 09:41
PROVIDERS: ATTEND Internal Medicine
DX: R91.1 Solitary pulmonary nodule (principal); N40.0 Benign prostatic hyperplasia without lower urinary tract symptoms
CPT/HCPCS: 78815; A9552

== ENCOUNTER 2020-03-14 18:53 | Emergency (ER) | payer OTHER, MEDICARE ==
[2020-03-14 19:03] VITALS: TEMP 97.9
[2020-03-14] MEDS ORDERED: ONDANSETRON 4 MG/2 ML VIAL IVP STA (19:20)
[2020-03-14] MEDS ORDERED: SODIUM CHLORIDE 0.9% 500 ML 500 ML IV STA (19:20)
[2020-03-14] MEDS ORDERED: KETOROLAC 15 MG/ML 1 ML VIAL IVP STA (19:20)
--- NOTE | 2020-03-14 19:40 | ED ---
General Adult HPI - General Chief complaint: Back Pain/Injury Stated complaint: R Side Pain Time Seen by Provider: 03/14/20 19:00 Source: patient, EMS Mode of arrival: EMS Limitations: no limitations - History of Present Illness Initial comments: 75-year-old male presenting today for chief complaint of right side pain. Patient states that he has had right side pain since early this morning. He states is associated with nausea and an episode of vomiting this morning. Patient states the pain is colicky coming and going decrease in increasing in intensity. Patient states the past few hours it has been more constant and severe and pain he states that due to the persistence he present to the emergency department. Patient denies any diarrhea he denies any fevers he denies any obvious hematuria. Denies dysuria urgency frequency but states he recently had to have a catheter placed secondary to urinary retention and had urethral scope by urology outpatient revealing a bladder calculus. Patient states the catheter has been out and he is voiding spontaneously, denies lower abdominal pressure. Denies pain with deep inspiration, SOB or chest pain. patient denies abdominal pain, stating it mostly in the mid side. Patient denies bloody or dark stools. Patient denies diarrhea, constipation. Patient has no additional complaints upon arrival he does appear uncomfortable, however nontoxic. VS within acceptable limits. - Related Data Home Medications Medication Instructions Recorded Confirmed Cholecalciferol (Vitamin D3) 2,000 unit PO DAILY 02/19/18 03/14/20 [Vitamin D3] Atorvastatin [Lipitor] 20 mg PO HS 11/25/18 03/14/20 Meloxicam [Mobic] 15 mg PO HS 01/21/20 03/14/20 predniSONE 5 mg PO DAILY 01/21/20 03/14/20 Furosemide [Lasix] 20 mg PO DAILY 03/14/20 03/14/20 Previous Rx's Medication Instructions Recorded Cephalexin [Keflex] 500 mg PO Q6HR 7 Days #28 cap 03/14/20 Ketorolac [Toradol] 10 mg PO Q12H PRN 3 Days #6 tab 03/14/20 Allergies Allergy/AdvReac Type Severity Reaction Status Date / Time No Known Allergies Allergy Verified 03/14/20 20:06 Review of Systems ROS Statement: Those systems with pertinent positive or pertinent negative responses have been documented in the HPI. ROS Other: All systems not noted in ROS Statement are negative. Past Medical History Past Medical History: Cancer, Eye Disorder, Hyperlipidemia, Prostate Disorder, Pulmonary Embolus (PE), Rheumatoid Arthritis (RA) Additional Past Medical History / Comment(s): 2015 R sided PE, bilateral chronic lung nodules, "leaky heart valve", BPH, skin cancer with removals, malignant colon polyps removed, headaches since CHI, bilateral cataracts. History of Any Multi-Drug Resistant Organisms: None Reported Past Surgical History: Appendectomy, Cholecystectomy, Heart Catheterization, Joint Replacement, Orthopedic Surgery Additional Past Surgical History / Comment(s): R knee arthroscopy, bilateral total knee arthroplasties, R shoulder rotator cuff repair, total L shoulder, bilateral elbow surgery, R hand partial amputation d/t injury, colonoscopy with 2 cancerous polypectomies, skin cancer removed, EGD Past Anesthesia/Blood Transfusion Reactions: No Reported Reaction Additional Past Anesthesia/Blood Transfusion Reaction / Comment(s): Pt has never recieved blood. Past Psychological History: No Psychological Hx Reported Smoking Status: Never smoker Past Alcohol Use History: None Reported Past Drug Use History: None Reported - Past Family History Son(s) Family Medical History: Deep Vein Thrombosis (DVT) Father Family Medical History: Cancer Additional Family Medical History / Comment(s): Father of lymphoma at age 70 yrs. Mother Family Medical History: Cancer Additional Family Medical History / Comment(s): Mother had breast cancer. She at age 88yrs. General Exam - General Exam Comments Initial Comments: General: The patient is awake and alert, in no distress Eye: +3 mm pupils are equal, round and reactive to light, extra-ocular movements are intact. No nystagmus. There is normal conjunctiva bilaterally. No signs of icterus. Ears, nose, mouth and throat: There are moist mucous membranes and no oral lesions. Neck: The neck is supple, there is no tenderness or JVD. Cardiovascular: There is a regular rate and rhythm. No murmur, rub or gallop is appreciated. Respiratory: Lungs are clear to auscultation, respirations are non-labored, breath sounds are equal. No wheezes, stridor, rales, or rhonchi. Gastrointestinal: Soft, non-distended, non-tender abdomen without masses or organomegaly noted. There is no rebound or guarding present. Musculoskeletal: Normal ROM, no tenderness. Strength 5/5. Sensation intact. Radial pulses equal bilaterally 2+. Neurological: A&O x 3. CN II-XII intact grossly, There are no obvious motor or sensory deficits. Coordination appears grossly intact. Speech is normal. Skin: Skin is warm and dry and no rashes or lesions are noted. Psychiatric: Cooperative, appropriate mood & affect, normal judgment. Limitations: no limitations Course Vital Signs 03/14/20 03/14/20 18:54 21:16 Temperature 97.9 F Pulse Rate 67 90 Respiratory 98 H 17 Rate Blood Pressure 177/94 147/86 O2 Sat by Pulse 99 98 Oximetry Medical Decision Making - Medical Decision Making Saturday 5-year-old male presenting for right flank pain denies fevers. Urinalysis no significant findings suggestive of acute infection. Patient does have a stone right sided 5 mm with some hydronephrosis and perinephric stranding. Discussed CT findings, labs and UA with attending. Patient symptoms controlled, he does not appear toxic We discussed incidental findigns on CT andimportance of both PCP and urology f/u. patient is agreeable to this care plan an discharge. Givne few bacteria in urine patient will be placed on keflex. Patient is agreeable and seems to understand importance of return parameters. - Lab Data Result diagrams: 03/14/20 19:36 03/14/20 19:36 Lab Results 03/14/20 03/14/20 03/14/20 Range/Units 19:36 19:36 19:36 WBC 7.3 (3.8-10.6) k/uL RBC 5.14 (4.30-5.90) m/uL Hgb 13.9 (13.0-17.5) gm/dL Hct 43.9 (39.0-53.0) % MCV 85.3 (80.0-100.0) fL MCH 27.0 (25.0-35.0) pg MCHC 31.6 (31.0-37.0) g/dL RDW 15.3 (11.5-15.5) % Plt Count 289 (150-450) k/uL Neutrophils % 69 % Lymphocytes % 25 % Monocytes % 5 % Eosinophils % 1 % Basophils % 0 % Neutrophils # 5.0 (1.3-7.7) k/uL Lymphocytes # 1.9 (1.0-4.8) k/uL Monocytes # 0.3 (0-1.0) k/uL Eosinophils # 0.0 (0-0.7) k/uL Basophils # 0.0 (0-0.2) k/uL Sodium 137 (137-145) mmol/L Potassium 5.4 H (3.5-5.1) mmol/L Chloride 106 (98-107) mmol/L Carbon Dioxide 23 (22-30) mmol/L Anion Gap 8 mmol/L BUN 26 H (9-20) mg/dL Creatinine 1.09 (0.66-1.25) mg/dL Est GFR (CKD-EPI)AfAm 76 (>60 ml/min/1.73 sqM) Est GFR (CKD-EPI)NonAf 66 (>60 ml/min/1.73 sqM) Glucose 115 H (74-99) mg/dL Calcium 9.6 (8.4-10.2) mg/dL Total Bilirubin 0.7 (0.2-1.3) mg/dL AST 28 (17-59) U/L ALT 24 (4-49) U/L Alkaline Phosphatase 89 (38-126) U/L Total Protein 6.9 (6.3-8.2) g/dL Albumin 3.9 (3.5-5.0) g/dL Lipase 544 H (23-300) U/L Urine Color Yellow Urine Appearance Clear (Clear) Urine pH 5.5 (5.0-8.0) Ur Specific [place] 1.021 (1.001-1.035) Urine Protein Trace H (Negative) Urine Glucose (UA) Negative (Negative) Urine Ketones Trace H (Negative) Urine Blood Moderate H (Negative) Urine Nitrite Negative (Negative) Urine Bilirubin Negative (Negative) Urine Urobilinogen <2.0 (<2.0) mg/dL Ur Leukocyte Esterase Moderate H (Negative) Urine RBC 31 H (0-5) /hpf Urine WBC 9 H (0-5) /hpf Urine Bacteria Rare H (None) /hpf Urine Mucus Occasional H (None) /hpf Disposition Clinical Impression: Kidney stone, Elevated lipase, Right flank pain, Hematuria Disposition: HOME SELF-CARE Condition: Good Instructions (If sedation given, give patient instructions): Kidney Stones (ED) Additional Instructions: Please use medication as discussed. Please follow-up with family doctor in the next 2 days, and urologist--- Con return to emergency department for worsening pain, vomiting, fever. Please return to emergency room if the symptoms increase or worsen or for any other concerns. Prescriptions: Cephalexin [Keflex] 500 mg PO Q6HR 7 Days #28 cap Ketorolac [Toradol] 10 mg PO Q12H PRN 3 Days #6 tab PRN Reason: Severe Pain Is patient prescribed a controlled substance at d/c from ED?: No Referrals: [facility],Clinic [Primary Care Provider] - 1-2 days Jacob Ingram MD [STAFF PHYSICIAN] - 1-2 days Time of Disposition: 21:41
[2020-03-14 19:56] LABS: Basophils % (A) 0 %; Eosinophils % (A) 1 %; HCT 43.9 % (39.0-53.0); HGB 13.9 gm/dL (13.0-17.5); Lymphocytes # (A) 1.9 k/uL (1.0-4.8); Lymphocytes % (A) 25 %; MCHC 31.6 g/dL (31.0-37.0); MCV 85.3 fL (80.0-100.0); Mean Platelet Volume 7.5; Monocytes # (A) 0.3 k/uL (0-1.0); Monocytes % (A) 5 %; Neutrophils % (A) 69 %; Platelet Count 289 k/uL (150-450); RBC 5.14 m/uL (4.30-5.90); RDW 15.3 % (11.5-15.5); WBC 7.3 k/uL (3.8-10.6)
[2020-03-14 20:02] LABS: Albumin 3.9 g/dL (3.5-5.0); Calcium 9.6 mg/dL (8.4-10.2); Potassium 5.4 mmol/L (3.5-5.1); Total Bilirubin 0.7 mg/dL (0.2-1.3); Total Protein 6.9 g/dL (6.3-8.2)
[2020-03-14 20:57] LABS: Appearance,Urine Clear (Clear); Bacteria,Urine Rare /hpf; Bilirubin,Urine Negative (Negative); Blood,Urine Moderate (Negative); Color,Urine Yellow; Glucose,Urine (UA) Negative (Negative); Ketones,Urine Trace (Negative); Leukocyte Esterase,Urine Moderate (Negative); Mucus,Urine Occasional /hpf; Nitrite,Urine Negative (Negative); PH, Urine 5.5 (5.0-8.0); Protein,Urine Trace (Negative); RBC,Urine 31 /hpf (0-5); Specific Gravity,Urine 1.021 (1.001-1.035); Urobilinogen,Urine <2.0 mg/dL (<2.0); WBC,Urine 9 /hpf (0-5)
[2020-03-14 21:17] VITALS: BP 147/86; PULSE 90; RESP 17
--- NOTE | 2020-03-14 21:21 | CT ---
EXAMINATION TYPE: CT abdomen pelvis wo con DATE OF EXAM: 03/14/2020 COMPARISON: CT 02/06/2020 HISTORY: Right flank pain x1 month. CT DLP: 1218.4 mGycm Automated exposure control for dose reduction was used. TECHNIQUE: Helical acquisition of images was performed from the lung bases through the pelvis. CONTRAST: Performed without Oral Contrast and without intravenous contrast. FINDINGS: LUNG BASES: Small right pleural effusion. Calcified coronary artery disease. No pericardial effusion. LIVER: Not enlarged. Normal attenuation. BILIARY SYSTEM: Status post cholecystectomy. No intrahepatic or extrahepatic biliary ductal dilatatio n. PANCREAS: No peripancreatic inflammation. SPLEEN: Not enlarged. ADRENALS: No nodule. Tiny calcification of the left adrenal gland. KIDNEYS: Numerous renal calculi bilaterally. There is mild right hydronephrosis and proximal hydroure ter with perinephric inflammatory stranding. A 5 mm obstructing calculus is seen within the right mid ureter. BOWEL: No evidence of bowel obstruction. Marked colonic diverticulosis. No acute diverticulitis. PERITONEUM: No free air is visualized. No free fluid. ADENOPATHY: No lymphadenopathy. PELVIS: Enlarged prostate with coarse calcifications and likely brachytherapy seeds. There is incompl ete distention of the urinary bladder 1.6 cm calcification within the left urinary bladder. VASCULATURE: No abdominal aortic aneurysm. MUSCULOSKELETAL: Degenerative changes of the spine. Sclerotic focus of the left pelvis likely benign bone island. Bilateral gynecomastia. 1.0 cm skin nodule just superomedial to the right nipple. IMPRESSION: 1. 5 mm right mid ureteral calculus with mild right hydroureteronephrosis and perinephric stranding. 2. Additional nonobstructing renal calculi seen bilaterally. 3. Small right pleural effusion. 4. 1.0 cm skin nodule just superomedial to the right nipple. Findings may represent mole, however re commend correlation with physical exam.
== END 2020-03-14 22:03 | disposition home or self-care (01) ==
LOC: EC 18:53
DX: N13.2 Hydronephrosis with renal and ureteral calculous obstruction (principal); R74.8 Abnormal levels of other serum enzymes; R31.9 Hematuria, unspecified; E78.5 Hyperlipidemia, unspecified; M06.9 Rheumatoid arthritis, unspecified; Z79.51 Long term (current) use of inhaled steroids; Z79.899 Other long term (current) drug therapy; Z79.1 Long term (current) use of non-steroidal anti-inflammatories (NSAID); Z86.711 Personal history of pulmonary embolism; Z90.89 Acquired absence of other organs; Z90.49 Acquired absence of other specified parts of digestive tract; Z96.653 Presence of artificial knee joint, bilateral; Z98.890 Other specified postprocedural states; Z85.828 Personal history of other malignant neoplasm of skin
CPT/HCPCS: 36415; 80053; 83690; 85025; 81001; 74176; 99284; 96374; 96375; 96361; J2405; J1885

== ENCOUNTER → 2020-04-25 | Outpatient (CLI) | payer MEDICARE ==
--- NOTE | 2020-04-25 09:04 | XR ---
Abdomen HISTORY: Ureteral calculus Frontal view of the abdomen on [address] 03/14/2020, prior abdomen 02/25/2017 There is a calcification at the level of the mid right ureter measuring approximately 6 to 7 mm in ce phalad to caudal dimension on prior CT measures approximately 12 mm on plain film at the level of the L4-5 disc space. There are multiple small calcifications within the right and left kidney partially visualized at the lower poles. Surgical clips are present in the right upper quadrant. There is blunt ing of the costophrenic angles is noted on prior CT. No evident pneumoperitoneum or bowel obstruction . Multiple calcifications present within the pelvis some which represent prostate calcifications some what vascular. Degenerative disc change in the visualized spine. IMPRESSION: Right ureteral calculus, bilateral nephrolithiasis.
== END | disposition home or self-care (01) ==
LOC: RADXRMAIN 08:25
PROVIDERS: ATTEND Urology
DX: N20.2 Calculus of kidney with calculus of ureter (principal)
CPT/HCPCS: 74018

== ENCOUNTER → 2020-06-20 | Outpatient (CLI) | payer MEDICARE, OTHER ==
--- NOTE | 2020-06-20 11:24 | US ---
EXAMINATION TYPE: US kidneys/renal and bladder DATE OF EXAM: 06/20/2020 COMPARISON: CT 03/14/2020 CLINICAL HISTORY: 75-year-old male N13.2 RT hydronephrosis. TECHNIQUE: Multiple sonographic images of the kidneys and bladder are obtained. FINDINGS: EXAM MEASUREMENTS: Right Kidney: 9.9 x 4.9 4.6 cm Left Kidney: 10.0 x 5.7 x 5.0 cm No hydronephrosis on either side. Multiple bilateral stones seen, largest on right measures 0.4 x 0.4 x 0.4cm, largest on left measures 0.5 x 0.5 x 0.5cm Bladder: wnl Right jet seen, left not seen Prostate gland is bulky measuring up to 4.8 cm wide. There is nodular soft tissue protuberance projec ting into the posterior bladder base measuring 2.5 cm AP. IMPRESSION: 1. No hydronephrosis. 2. Bilateral nephrolithiasis measuring up to 5 mm. 3. Bulky prostate gland. Contiguous 2.5 cm soft tissue nodularity impressing on the posterior bladder base, suspect median lobe hypertrophy and BPH. Correlate with PSA values and patient's symptoms.
== END | disposition home or self-care (01) ==
LOC: RADUSWWP 10:40
PROVIDERS: ATTEND Urology
DX: N13.2 Hydronephrosis with renal and ureteral calculous obstruction (principal)
CPT/HCPCS: 76770

== ENCOUNTER → 2020-11-04 | Outpatient (CLI) | payer MEDICARE ==
--- NOTE | 2020-11-04 17:45 | CT ---
EXAMINATION TYPE: CT angio chest DATE OF EXAM: 11/04/2020 COMPARISON: January 21, 2020 HISTORY: SOB CT DLP: 613.8 mGycm Automated exposure control for dose reduction was used. CONTRAST: Performed with IV Contrast, patient injected with 100 mL of Isovue 370. There are 3-D post processed images. There is bilateral pleural effusions and larger on the right side. There is some atelectasis at both lung bases. There is coarse linear density in the right mid and upper lung field likely related to sc arring and atelectasis. There is also similar less severe reticular nodular infiltrate in the left mi dlung field also consistent with scarring. Heart size is normal. There is no pericardial effusion. There is coronary artery calcification. Thora cic aorta shows no aneurysm or dissection. Ascending aorta measures 3.8 cm. There is normal contrast opacification of the pulmonary arteries. There are no filling defects. There is some spurring in the thoracic spine. Sternum is intact. The ribs are intact. IMPRESSION: No evidence of pulmonary embolism. There are small bilateral pleural effusions and larger on the righ t side. Pleural fluid is new compared to old exam. There is clearing of the masslike consolidation at the anterior right pulmonary hilum compared to old exam. There is bilateral chronic interstitial and nodular pulmonary infiltrates consistent with scarring similar to old exam. Atelectasis anterior rig ht upper lobe increased compared to old exam.
== END | disposition home or self-care (01) ==
LOC: RADCTMAIN 16:14
PROVIDERS: ATTEND Internal Medicine
DX: J90 Pleural effusion, not elsewhere classified (principal); J98.11 Atelectasis; R91.8 Other nonspecific abnormal finding of lung field
CPT/HCPCS: 82565; 84520; 71275; 36415; Q9967

== ENCOUNTER → 2020-11-11 | Outpatient (CLI) | payer MEDICARE, OTHER ==
--- NOTE | 2020-11-11 16:00 | ECHOF ---
Referral Reason:R06.09 Dyspnea MEASUREMENTS -------- HEIGHT: 180.3 cm WEIGHT: 104.3 kg BP: RVIDd: 2.7 cm (< 3.3) IVSd: 1.5 cm (0.6 - 1.1) LVIDd: 2.7 cm (3.9 - 5.3) LVPWd: 1.6 cm (0.6 - 1.1) IVSs: 1.9 cm LVIDs: 1.4 cm LVPWs: 1.8 cm Ao Diam: 3.6 cm (2.0 - 3.7) AV Cusp: 2.2 cm (1.5 - 2.6) LA Diam: 3.4 cm (2.7 - 3.8) MV EXCURSION: 10.065 mm (> 18.000) MV EF SLOPE: 26 mm/s (70 - 150) EPSS: 0.4 cm MV E Dominic: 0.65 m/s MV DecT: 284 ms MV A Dominic: 1.12 m/s MV E/A Ratio: 0.58 AR PHT: 718 ms RAP: 5.00 mmHg RVSP: 12.87 mmHg FINDINGS -------- This was a technically adequate study. The left ventricular size is normal. There is moderate concentric left ventricular hypertrophy. O verall left ventricular systolic function is normal with, an EF between 55 - 60 %. The diastolic fi lling pattern is normal for the age of the patient 7.67. The right ventricle is normal in size. The left atrial size is normal. The right atrial size is normal. The aortic valve is trileaflet and appears structurally normal. There is [id number] aortic re gurgitation. The mitral valve is normal. The mitral valve leaflets are mildly thickened. There is trace mitral regurgitation. The tricuspid valve appears structurally normal. Mild tricuspid regurgitation present. Right vent ricular systolic pressure is normal at < 35 mmHg. There is no pulmonic regurgitation present. The aortic root size is normal. IVC Not well visulized. There is no pericardial effusion. CONCLUSIONS -------- 1. The left ventricular size is normal. 2. There is moderate concentric left ventricular hypertrophy. 3. Overall left ventricular systolic function is normal with, an EF between 55 - 60 %. 4. The diastolic filling pattern is normal for the age of the patient 7.67 5. There is [id number] aortic regurgitation. 6. The mitral valve leaflets are mildly thickened. 7. There is trace mitral regurgitation. 8. Mild tricuspid regurgitation present. 9. There is no pericardial effusion. ORDER FILLER: Bernadette Lacy RDCS
== END | disposition home or self-care (01) ==
LOC: RADECHMAIN 13:40
PROVIDERS: ATTEND Internal Medicine
DX: I08.3 Combined rheumatic disorders of mitral, aortic and tricuspid valves (principal)
CPT/HCPCS: 93306

== ENCOUNTER → 2021-03-20 | Outpatient (CLI) | payer OTHER ==
--- NOTE | 2021-03-20 12:02 | BD ---
EXAMINATION TYPE: Axial Bone Density DATE OF EXAM: 03/20/2021 COMPARISON: NONE CLINICAL HISTORY: Height: 71 IN Weight: 228 LBS FRAX RISK QUESTIONS: Family History (Parent hip fracture): YES MOTHER Secondary Osteoporosis: Rheumatoid Arthritis: YES RISK FACTORS HISTORY OF: History of Wrist Fracture: LT WRIST AGE 50 Active: YES MEDICATIONS: Additional Medications: VIT D, RA MEDS, BREATHING MEDS, EXAM MEASUREMENTS: Bone mineral densitometry was performed using the MSI System. Bone mineral density as measured about the Lumbar spine is: ----- L1-L4(G/cm2): 1.304 T Score Values are as follows: ----- L2: 0.3 ----- L3: 1.2 ----- L4: 2.3 ----- L1-L4: 1.0 Bone mineral density BASELINE Bone mineral density about the R hip (g/cm2): 0.823 Bone mineral density about the L hip (g/cm2): 0.782 T Score values are as follows: -----R Neck: -1.5 -----L Neck: -1.8 -----R Total: -1.4 -----L Total: -1.6 Bone mineral density BASELINE IMPRESSION: Osteopenia NOTE: T-SCORE=SD OF THE YOUNG ADULT MEAN.
== END | disposition home or self-care (01) ==
LOC: RADBDWWP 07:07
DX: Z13.820 Encounter for screening for osteoporosis (principal); M85.80 Other specified disorders of bone density and structure, unspecified site
CPT/HCPCS: 77080

== ENCOUNTER 2021-05-01 10:13 | Inpatient (IN) | payer OTHER ==
[2021-05-01] MEDS ORDERED: ALBUTEROL NEBULIZED 2.5 MG/3 ML INHALATION STA (10:42)
[2021-05-01] MEDS ORDERED: IPRATROPIUM 0.5 MG/2.5 ML NEBU INHALATION STA (10:42)
--- NOTE | 2021-05-01 10:47 | ED ---
General Adult HPI - General Chief complaint: Shortness of Breath Stated complaint: SOB Time Seen by Provider: 05/01/21 10:32 Source: patient, RN notes reviewed, old records reviewed Mode of arrival: wheelchair Limitations: physical limitation - History of Present Illness Initial comments: 76-year-old presenting with cough and fever over the past 3 days. Patient denies central chest pain. He had a fever up to 101. He also reports myalgias and generalized fatigue. He states the cough is dry and nonproductive. He has no abdominal pain nausea vomiting. No lower extremity pain or swelling. He has a previous history of DVT and is not currently on any anticoagulation. - Related Data Home Medications Medication Instructions Recorded Confirmed Atorvastatin [Lipitor] 40 mg PO HS 11/25/18 05/01/21 Meloxicam [Mobic] 15 mg PO HS 01/21/20 05/01/21 predniSONE 5 mg PO DAILY 01/21/20 05/01/21 Furosemide [Lasix] 20 mg PO DAILY 03/14/20 05/01/21 Albuterol Inhaler [Ventolin Hfa 1 puff INHALATION RT-Q4H PRN 05/01/21 05/01/21 Inhaler] Calcium Carbonate/Vitamin D3 1 tab PO BID 05/01/21 05/01/21 [Calcium 500-Vit D3 5 Mcg (200 Iu)] Cholecalciferol [Vitamin D3 (25 50 mcg PO DAILY 05/01/21 05/01/21 Mcg = 1000 Iu)] Fluticasone/Salmeterol [Advair 1 inhalation PO RT-BID 05/01/21 05/01/21 250-50 Diskus] Leflunomide [Arava] 10 mg PO DAILY 05/01/21 05/01/21 Potassium Chloride [Klor-Con 10 ER] 10 meq PO DAILY 05/01/21 05/01/21 Tamsulosin [Flomax] 0.4 mg PO HS 05/01/21 05/01/21 Allergies Allergy/AdvReac Type Severity Reaction Status Date / Time No Known Allergies Allergy Verified 05/01/21 11:16 Review of Systems ROS Statement: Those systems with pertinent positive or pertinent negative responses have been documented in the HPI. ROS Other: All systems not noted in ROS Statement are negative. Past Medical History Past Medical History: Cancer, Eye Disorder, Hyperlipidemia, Prostate Disorder, Pulmonary Embolus (PE), Rheumatoid Arthritis (RA) Additional Past Medical History / Comment(s): 2015 R sided PE, bilateral chronic lung nodules, "leaky heart valve", BPH, skin cancer with removals, malignant colon polyps removed, headaches since CHI, bilateral cataracts. History of Any Multi-Drug Resistant Organisms: None Reported Past Surgical History: Appendectomy, Cholecystectomy, Heart Catheterization, Joint Replacement, Orthopedic Surgery Additional Past Surgical History / Comment(s): R knee arthroscopy, bilateral total knee arthroplasties, R shoulder rotator cuff repair, total L shoulder, bilateral elbow surgery, R hand partial amputation d/t injury, colonoscopy with 2 cancerous polypectomies, skin cancer removed, EGD Past Anesthesia/Blood Transfusion Reactions: No Reported Reaction Additional Past Anesthesia/Blood Transfusion Reaction / Comment(s): Pt has never recieved blood. Past Psychological History: No Psychological Hx Reported Smoking Status: Never smoker Past Alcohol Use History: None Reported Past Drug Use History: None Reported - Past Family History Son(s) Family Medical History: Deep Vein Thrombosis (DVT) Father Family Medical History: Cancer Additional Family Medical History / Comment(s): Father of lymphoma at age 70 yrs. Mother Family Medical History: Cancer Additional Family Medical History / Comment(s): Mother had breast cancer. She at age 88yrs. General Exam Limitations: physical limitation General appearance: alert, in no apparent distress Head exam: Present: atraumatic, normocephalic Eye exam: Present: normal appearance, PERRL ENT exam: Present: normal exam Neck exam: Present: normal inspection Respiratory exam: Present: respiratory distress, decreased breath sounds Cardiovascular Exam: Present: normal rhythm, tachycardia GI/Abdominal exam: Present: soft. Absent: distended, tenderness, guarding Extremities exam: Present: normal inspection, normal capillary refill. Absent: pedal edema Neurological exam: Present: alert, oriented X3 Psychiatric exam: Present: normal affect, normal mood Skin exam: Present: warm, dry, intact. Absent: cyanosis, diaphoretic Course Vital Signs 05/01/21 05/01/21 05/01/21 10:26 10:40 11:36 Temperature 99.3 F Pulse Rate 106 H 106 H 98 Respiratory 18 20 Rate Blood Pressure 108/67 128/84 O2 Sat by Pulse 89 L 96 Oximetry 05/01/21 12:02 Temperature Pulse Rate 98 Respiratory Rate Blood Pressure O2 Sat by Pulse Oximetry EKG Findings - EKG Comments: EKG Findings:: EKG: Sinus tachycardia, rate of 105, RI interval 150, QRS duration 78, QTC 436, no ST segment Medical Decision Making - Medical Decision Making 76 yo male with increased cough dyspnea and fever. History of PE. Workup is initiated, normal CBC, normal CMP, negative drawer testing, chest x-ray showing a right-sided pleural effusion and right lower lobe pneumonia. I did perform CT angiography on this patient with a positive d-dimer which was negative for pulmonary embolism but did show infiltrate. Patient started on antibiotics. He will be admitted with pulmonology on consult. Case discussed with who will admit. - Lab Data Result diagrams: 05/01/21 10:38 05/01/21 10:38 Lab Results 05/01/21 05/01/21 05/01/21 Range/Units 10:38 10:38 10:38 WBC 8.8 (3.8-10.6) k/uL RBC 5.34 (4.30-5.90) m/uL Hgb 15.5 (13.0-17.5) gm/dL Hct 46.3 (39.0-53.0) % MCV 86.7 (80.0-100.0) fL MCH 29.0 (25.0-35.0) pg MCHC 33.5 (31.0-37.0) g/dL RDW 14.8 (11.5-15.5) % Plt Count 254 (150-450) k/uL MPV 8.1 Neutrophils % 77 % Lymphocytes % 17 % Monocytes % 5 % Eosinophils % 1 % Basophils % 0 % Neutrophils # 6.7 (1.3-7.7) k/uL Lymphocytes # 1.5 (1.0-4.8) k/uL Monocytes # 0.4 (0-1.0) k/uL Eosinophils # 0.1 (0-0.7) k/uL Basophils # 0.0 (0-0.2) k/uL PT 10.2 (9.0-12.0) sec INR 0.9 (<1.2) APTT 22.2 (22.0-30.0) sec D-Dimer 0.80 H (<0.60) mg/L FEU Sodium 136 L (137-145) mmol/L Potassium 4.7 (3.5-5.1) mmol/L Chloride 104 (98-107) mmol/L Carbon Dioxide 21 L (22-30) mmol/L Anion Gap 11 mmol/L BUN 22 H (9-20) mg/dL Creatinine 1.17 (0.66-1.25) mg/dL Est GFR (CKD-EPI)AfAm 70 (>60 ml/min/1.73 sqM) Est GFR (CKD-EPI)NonAf 60 (>60 ml/min/1.73 sqM) Glucose 148 H (74-99) mg/dL Plasma Lactic Acid Jarret (0.7-2.0) mmol/L Calcium 9.7 (8.4-10.2) mg/dL Magnesium 1.9 (1.6-2.3) mg/dL Total Bilirubin 1.0 (0.2-1.3) mg/dL AST 28 (17-59) U/L ALT 24 (4-49) U/L Alkaline Phosphatase 124 (38-126) U/L Troponin I (0.000-0.034) ng/mL NT-Pro-B Natriuret Pep pg/mL Total Protein 7.3 (6.3-8.2) g/dL Albumin 4.0 (3.5-5.0) g/dL Coronavirus (PCR) (Not Detectd) 05/01/21 05/01/21 05/01/21 Range/Units 10:38 10:38 10:38 WBC (3.8-10.6) k/uL RBC (4.30-5.90) m/uL Hgb (13.0-17.5) gm/dL Hct (39.0-53.0) % MCV (80.0-100.0) fL MCH (25.0-35.0) pg MCHC (31.0-37.0) g/dL RDW (11.5-15.5) % Plt Count (150-450) k/uL MPV Neutrophils % % Lymphocytes % % Monocytes % % Eosinophils % % Basophils % % Neutrophils # (1.3-7.7) k/uL Lymphocytes # (1.0-4.8) k/uL Monocytes # (0-1.0) k/uL Eosinophils # (0-0.7) k/uL Basophils # (0-0.2) k/uL PT (9.0-12.0) sec INR (<1.2) APTT (22.0-30.0) sec D-Dimer (<0.60) mg/L FEU Sodium (137-145) mmol/L Potassium (3.5-5.1) mmol/L Chloride (98-107) mmol/L Carbon Dioxide (22-30) mmol/L Anion Gap mmol/L BUN (9-20) mg/dL Creatinine (0.66-1.25) mg/dL Est GFR (CKD-EPI)AfAm (>60 ml/min/1.73 sqM) Est GFR (CKD-EPI)NonAf (>60 ml/min/1.73 sqM) Glucose (74-99) mg/dL Plasma Lactic Acid Jarret 1.2 (0.7-2.0) mmol/L Calcium (8.4-10.2) mg/dL Magnesium (1.6-2.3) mg/dL Total Bilirubin (0.2-1.3) mg/dL AST (17-59) U/L ALT (4-49) U/L Alkaline Phosphatase (38-126) U/L Troponin I <0.012 (0.000-0.034) ng/mL NT-Pro-B Natriuret Pep 213 pg/mL Total Protein (6.3-8.2) g/dL Albumin (3.5-5.0) g/dL Coronavirus (PCR) (Not Detectd) 05/01/21 Range/Units 10:38 WBC (3.8-10.6) k/uL RBC (4.30-5.90) m/uL Hgb (13.0-17.5) gm/dL Hct (39.0-53.0) % MCV (80.0-100.0) fL MCH (25.0-35.0) pg MCHC (31.0-37.0) g/dL RDW (11.5-15.5) % Plt Count (150-450) k/uL MPV Neutrophils % % Lymphocytes % % Monocytes % % Eosinophils % % Basophils % % Neutrophils # (1.3-7.7) k/uL Lymphocytes # (1.0-4.8) k/uL Monocytes # (0-1.0) k/uL Eosinophils # (0-0.7) k/uL Basophils # (0-0.2) k/uL PT (9.0-12.0) sec INR (<1.2) APTT (22.0-30.0) sec D-Dimer (<0.60) mg/L FEU Sodium (137-145) mmol/L Potassium (3.5-5.1) mmol/L Chloride (98-107) mmol/L Carbon Dioxide (22-30) mmol/L Anion Gap mmol/L BUN (9-20) mg/dL Creatinine (0.66-1.25) mg/dL Est GFR (CKD-EPI)AfAm (>60 ml/min/1.73 sqM) Est GFR (CKD-EPI)NonAf (>60 ml/min/1.73 sqM) Glucose (74-99) mg/dL Plasma Lactic Acid Jarret (0.7-2.0) mmol/L Calcium (8.4-10.2) mg/dL Magnesium (1.6-2.3) mg/dL Total Bilirubin (0.2-1.3) mg/dL AST (17-59) U/L ALT (4-49) U/L Alkaline Phosphatase (38-126) U/L Troponin I (0.000-0.034) ng/mL NT-Pro-B Natriuret Pep pg/mL Total Protein (6.3-8.2) g/dL Albumin (3.5-5.0) g/dL Coronavirus (PCR) Not Detected (Not Detectd) Disposition Clinical Impression: Pneumonia Disposition: ADMITTED IP TO THIS HOSP Condition: Stable Is patient prescribed a controlled substance at d/c from ED?: No Referrals: [facility],Clinic [Primary Care Provider] - 1-2 days Decision to Admit Reason: Admit from EC Decision Date: 05/01/21 Decision Time: 13:17
[2021-05-01 11:09] LABS: Basophils % (A) 0 %; Eosinophils # (A) 0.1 k/uL (0-0.7); Eosinophils % (A) 1 %; HCT 46.3 % (39.0-53.0); HGB 15.5 gm/dL (13.0-17.5); Lymphocytes # (A) 1.5 k/uL (1.0-4.8); Lymphocytes % (A) 17 %; MCHC 33.5 g/dL (31.0-37.0); MCV 86.7 fL (80.0-100.0); Mean Platelet Volume 8.1; Monocytes # (A) 0.4 k/uL (0-1.0); Monocytes % (A) 5 %; Neutrophils # (A) 6.7 k/uL (1.3-7.7); Neutrophils % (A) 77 %; Platelet Count 254 k/uL (150-450); RBC 5.34 m/uL (4.30-5.90); RDW 14.8 % (11.5-15.5); WBC 8.8 k/uL (3.8-10.6)
--- NOTE | 2021-05-01 11:10 | XR ---
EXAMINATION TYPE: XR chest 2V DATE OF EXAM: 05/01/2021 COMPARISON: 01/22/2020 INDICATION: Difficulty breathing TECHNIQUE: Frontal and lateral views of the chest are obtained. FINDINGS: The heart size is normal. The pulmonary vasculature is normal. There appears to be some mild streaky opacity through the right upper lung field may represent some a telectasis. Small right pleural effusion is present. A nodule appears to be in the lateral aspect of the right lung. CT could further evaluate this finding. This could be related to nipple shadow.. IMPRESSION: 1. Small right pleural effusion with some mild trachea to the right mid lung correlate for atelectasi s. 2. 1.5 cm nodule possible in the right lower lobe. Follow-up is recommended
[2021-05-01 11:23] LABS: Calcium 9.7 mg/dL (8.4-10.2); Magnesium 1.9 mg/dL (1.6-2.3); Potassium 4.7 mmol/L (3.5-5.1); Total Protein 7.3 g/dL (6.3-8.2)
[2021-05-01 11:51] LABS: INR 0.9 (<1.2); Partial Thromboplastin Time 22.2 sec (22.0-30.0); Prothrombin Time 10.2 sec (9.0-12.0)
[2021-05-01] MEDS ORDERED: SODIUM CHLORIDE 0.9% 500 ML 500 ML IV ONE (12:06)
--- NOTE | 2021-05-01 13:06 | CT ---
CT CHEST FOR PULMONARY EMBOLISM. EXAMINATION TYPE: CT angio chest DATE OF EXAM: 05/01/2021 INDICATION: CONNIE/+D-dimer CT DLP: 585.6 mGycm, Automated exposure control for dose reduction was used. CONTRAST: Patient injected with 100 ml mL of Isovue 370. COMPARISON: 11/04/2020 TECHNIQUE: CT of the chest is performed on a spiral scan at 2 mm thick sections. Study is performed with intravenous contrast timed for evaluation for pulmonary embolism. This will limit additional po rtions of the evaluation. 3-D MIP images reconstructed by the technologist are reviewed on the compu ter in the coronal and sagittal planes. FINDINGS: No persistent filling defects are evident to suggest an acute pulmonary embolism. No mediastinal or hilar adenopathy enlarged by CT criteria is evident. The ascending aorta diameter at the level of the main pulmonary artery is 4.0 cm. The main pulmonary artery diameter at the bifur cation is 3.5 cm. Scattered infiltrates are in the right upper lung field. Some peribronchial thickening is present. Co nsolidation extends into the right middle lobe. Mild left lower lobe infiltrate is present posteriorl y. A small right pleural effusion is present. Limited CT section through the upper abdomen are unremarkable. IMPRESSIONS: 1. Scattered infiltrates more focal and consolidative in the right hilar region. 2. No acute pulmonary embolism. 3. Small right pleural effusion
[2021-05-01] MEDS ORDERED: methylPREDNISolone SOD SUCCI 125 MG/2 ML VIAL IV STA (13:12)
[2021-05-01] MEDS ORDERED: AZITHROMYCIN 500 MG in SODIUM CHLORIDE 0.9% 250 ML IVPB STA (13:12)
[2021-05-01] MEDS ORDERED: cefTRIAXone IN SWFI 1,000 MG/10 ML SYRINGE IVP STA (13:12)
[2021-05-01] MEDS ORDERED: PNEUMONIA PROTOCOL UTILIZED 1 EACH MISC PO PRN (13:13)
[2021-05-01] MEDS: SODIUM CHLORIDE 0.9% 1,000 ML IV SCH ×2 (14:09→20:44)
[2021-05-01] MEDS: methylPREDNISolone SOD SUCCI 125 MG/2 ML VIAL IV SCH ×2 (14:28→23:33)
[2021-05-01] MEDS ORDERED: ALBUTEROL NEBULIZED 2.5 MG/3 ML INHALATION SCH (16:00)
--- NOTE | 2021-05-01 17:18 | P.CNPUL ---
History of Present Illness Consult date: 05/01/21 Requesting physician: Jay Del Toro Reason for consult: dyspnea, cough, hypoxemia, abnormal CXR/CT Chief complaint: Shortness of breath, weakness, cough, fever History of present illness: 76 -year-old white male patient with past medical history of rheumatoid arthritis, ex-smoker, chronic bilateral pulmonary nodules, and patient has been following with Dr. Fernandez in regards to the pulmonary nodules. Patient states he also sees a doctor out of [place], he is not sure of the name. Patient has history of pulmonary embolism, rheumatoid arthritis, valvular heart disease, BPH. We saw the patient in January 2020, when she was hospitalized with shortness of breath, fever, cough and some phlegm production. His CT of the chest at that time showed masslike consolidation in the right hilar area with the possibility of malignancy and/or pneumonia. He underwent bronchoscopy with bronchial biopsies. Cytology and transbronchial biopsy of the right upper lobe were negative for features diagnostic of neoplasm. Subsequently his PET scan from 02/10/2020 showed area in the right midlung suspicios for inflammatory process, there was a suspicious right hilar lymph node, and borderline subcarinal lymph node. There was no metastatic malignancy, there was an enlarged prostate with areas of abnormal hypermetabolic uptake, and clinical correlation for primary prostatic neoplasm. Patient came into the emergency department on 05/01/2021 for evaluation of cough, fever over the past 3 days, weakness, and shortness of breath. Patient denied any central chest pain, no hemoptysis, he had a fever up to 10 1F, he complained of chills and generalized fatigue. His cough is dry and nonproductive, no nausea vomiting or diarrhea, no lower extremity swelling. Chest x-ray showed small right pleural effusion with some mild streaky opacities with a right upper lung field that may represent some atelectasis, and small right pleural effusion, there is a nodule in the lateral aspect of the right lung and CT of the chest was recommended. The nodule was measuring 1.[address] angiogram of the chest showed scattered infiltrates more focal and consolidative in the right hilar region, no acute pulmonary embolism, and small right pleural effusion. Blood work reveals CBC which is within normal limits, white blood cell count is normal at 8.8, hemoglobin is 15.5, platelet count is 254, d-dimer is 0.8, sodium is 136, potassium is 4.7, chloride is 104, CO2 is 21, B1 is 22, creatinine is 1.17, lactic acid was 1.2, LFTs were within normal limits, troponin was less than 0.012, proBNP was 213, COVID-19 PCR was negative. Patient was placed on empiric antibiotics in the form of azithromycin and Rocephin IV steroids, he was given some IV hydration. He currently appears to be in no acute distress, no altered mentation, no fever while in the hospital. He is awaiting a bed on the medical surgical floor. Review of Systems All systems: negative Constitutional: Reports fatigue, Reports fever, Reports weakness, Denies chills Eyes: denies blurred vision, denies pain Ears, nose, mouth and throat: Denies headache, Denies sore throat Cardiovascular: Denies chest pain, Denies shortness of breath Respiratory: Reports cough, Reports dyspnea, Reports respiratory infections Gastrointestinal: Denies abdominal pain, Denies diarrhea, Denies nausea, Denies vomiting Musculoskeletal: Denies myalgias Integumentary: Denies pruritus, Denies rash Neurological: Denies numbness, Denies weakness Psychiatric: Denies anxiety, Denies depression Endocrine: Denies fatigue, Denies weight change Past Medical History Past Medical History: Cancer, Eye Disorder, Hyperlipidemia, Prostate Disorder, Pulmonary Embolus (PE), Rheumatoid Arthritis (RA) Additional Past Medical History / Comment(s): 2014 R sided PE, bilateral chronic lung nodules, "leaky heart valve", BPH, skin cancer with removals, malignant colon polyps removed, headaches since CHI, bilateral cataracts. History of Any Multi-Drug Resistant Organisms: None Reported Past Surgical History: Appendectomy, Cholecystectomy, Heart Catheterization, Joint Replacement, Orthopedic Surgery Additional Past Surgical History / Comment(s): R knee arthroscopy, bilateral total knee arthroplasties, R shoulder rotator cuff repair, total L shoulder, bilateral elbow surgery, R hand partial amputation d/t injury, colonoscopy with 2 cancerous polypectomies, skin cancer removed, EGD Past Anesthesia/Blood Transfusion Reactions: No Reported Reaction Additional Past Anesthesia/Blood Transfusion Reaction / Comment(s): Pt has never recieved blood. Past Psychological History: No Psychological Hx Reported Smoking Status: Never smoker Past Alcohol Use History: None Reported Past Drug Use History: None Reported - Past Family History Son(s) Family Medical History: Deep Vein Thrombosis (DVT) Father Family Medical History: Cancer Additional Family Medical History / Comment(s): Father of lymphoma at age 70 yrs. Mother Family Medical History: Cancer Additional Family Medical History / Comment(s): Mother had breast cancer. She at age 88yrs. Medications and Allergies Home Medications Medication Instructions Recorded Confirmed Type Atorvastatin [Lipitor] 20 mg PO HS 11/25/18 05/01/21 History Meloxicam [Mobic] 15 mg PO HS 01/21/20 05/01/21 History predniSONE 5 mg PO DAILY 01/21/20 05/01/21 History Furosemide [Lasix] 20 mg PO DAILY 03/14/20 05/01/21 History Albuterol Inhaler [Ventolin Hfa 1 puff INHALATION RT-Q4H PRN 05/01/21 05/01/21 History Inhaler] Calcium Carbonate/Vitamin D3 1 tab PO BID 05/01/21 05/01/21 History [Calcium 500-Vit D3 5 Mcg (200 Iu)] Cholecalciferol [Vitamin D3 (25 50 mcg PO DAILY 05/01/21 05/01/21 History Mcg = 1000 Iu)] Diclofenac Sodium [Voltaren 2 gm TOPICAL TID PRN 05/01/21 05/01/21 History Arthritis Pain 1% Gel] Fluticasone/Salmeterol [Advair 1 inhalation PO RT-BID 05/01/21 05/01/21 History 250-50 Diskus] Leflunomide [Arava] 10 mg PO DAILY 05/01/21 05/01/21 History Omeprazole [PriLOSEC] 20 mg PO DAILY 05/01/21 05/01/21 History Potassium Chloride [Klor-Con 10 ER] 10 meq PO DAILY 05/01/21 05/01/21 History Tamsulosin [Flomax] 0.4 mg PO HS 05/01/21 05/01/21 History Allergies Allergy/AdvReac Type Severity Reaction Status Date / Time No Known Allergies Allergy Verified 05/01/21 11:16 Physical Exam Vitals: Vital Signs Temp Pulse Resp BP Pulse Ox 05/01/21 15:35 99 05/01/21 15:28 97 05/01/21 13:54 103 H 05/01/21 13:00 105 H 10 L 123/69 97 05/01/21 12:02 98 05/01/21 12:00 103 H 10 L 129/82 98 05/01/21 11:36 98 05/01/21 11:00 105 H 18 128/84 96 05/01/21 10:40 106 H 20 128/84 96 05/01/21 10:26 99.3 F 106 H 18 108/67 89 L Intake and Output 05/01/21 05/01/21 05/01/21 06:59 14:59 22:59 Other: Weight 104.326 kg GENERAL EXAM: Alert, very pleasant, 76-year-old white male resting on the gurney in the emergency department, breathing comfortably, currently on 3 L of oxygen with pulse ox of 97% comfortable in no apparent distress. HEAD: Normocephalic/atraumatic. EYES: Normal reaction of pupils, equal size. Conjunctiva pink, sclera white. NOSE: Clear with pink turbinates. THROAT: No erythema or exudates. NECK: No masses, no JVD, no thyroid enlargement, no adenopathy. CHEST: No chest wall deformity. Symmetrical expansion. LUNGS: Equal air entry with diminished breath sounds at the right lower lobe CVS: Regular rate and rhythm, normal S1 and S2, no gallops, no murmurs, no rubs ABDOMEN: Soft, nontender. No hepatosplenomegaly, normal bowel sounds, no guarding or rigidity. EXTREMITIES: No clubbing, no edema, no cyanosis, 2+ pulses and upper and lower extremities. MUSCULOSKELETAL: Muscle strength and tone normal. SPINE: No scoliosis or deformity SKIN: No rashes CENTRAL NERVOUS SYSTEM: Alert and oriented -3. No focal deficits, tone is normal in all 4 extremities. PSYCHIATRIC: Alert and oriented -3. Appropriate affect. Intact judgment and insight. Results - Laboratory Findings CBC and BMP: 05/01/21 10:38 05/01/21 10:38 PT/INR, D-dimer PT 10.2 sec (9.0-12.0) 05/01/21 10:38 INR 0.9 (<1.2) 05/01/21 10:38 D-Dimer 0.80 mg/L FEU (<0.60) H 05/01/21 10:38 Abnormal lab findings: Abnormal Labs 05/01/21 05/01/21 10:38 10:38 D-Dimer 0.80 H Sodium 136 L Carbon Dioxide 21 L BUN 22 H Glucose 148 H - Diagnostic Findings Chest x-ray: report reviewed, image reviewed CT scan - chest: report reviewed, image reviewed Additional studies: EKG reviewed Assessment and Plan Plan: Assessment: #1. Shortness of breath, fever chills, cough, possibly related to pneumonia, chest x-ray showing small right pleural effusion with some mild streaky opacity through the right upper lung field that could be related to atelectasis or underlying infiltrate. COVID-19 PCR was negative. CTA chest showed scattered infiltrates more focal and consolidative in the right hilar region, possibly area of scarring from previous episode of pneumonia in the right lung. No evidence of pulmonary embolism. Small right pleural effusion #2. Right lower lobe 1.5 cm pulmonary nodule reported on the chest x-ray, how ever CTA chest showed no mediastinal or hilar adenopathy by CT criteria #3. Former smoker #4. History of rheumatoid arthritis on prednisone 5 mg for maintenance #5. Chronic bilateral pulmonary nodules, evident on the CT chest from this admission #6. History of valvular heart disease #7. Former smoker #8. Rule out possibility of COPD #9. Previous bronchoscopy with transbronchial biopsies of the right hilar area right upper lobe, and biopsies were negative for malignancy Plan: Continue empiric antibiotic treatment Continue nebulized bronchodilators CT chest reviewed showing no lymphadenopathy It did show possibility of right hilar region infiltrates, possibly pneumonia or area of scarring, Send a pro calcitonin level We'll continue to follow Will review office records from Dr. Fernandez's office, could not get access to the EMR tonight We'll make further recommendations based on his clinical course I performed a history & physical examination of the patient and discussed their management with my nurse practitioner, Stacey Aguilar. I reviewed the nurse practitioner's note and agree with the documented findings and plan of care. Lung sounds are positive for dim breath sounds throughout the lung cosme. The findings and the impression was discussed with the patient. I attest to the documentation by the nurse practitioner. Time with Patient: Greater than 30
--- NOTE | 2021-05-01 19:01 | P.HPIM ---
History of Present Illness H&P Date: 05/01/21 Chief Complaint: Shortness of breath Patient is a 76-year-old male with a known history of hyperlipidemia, history of right-sided PE, bilateral chronic lung nodules, rheumatoid arthritis, valvular heart disease, BPH presents to ER with complaints of worsening shortness of br eath for the last 1 week and also developed a fever this morning along with cough without much sputum production. Denied any chest pain. No headache or dizziness or lightheadedness. He is on follow with pulmonary due to history of chronic lung nodule. Patient had CT chest showed masslike consolidation in the right hilar area with possibility of malignancy and/or pneumonia. Patient also underwent bronchoscopy with bronchial biopsy. Biopsy of the right upper lobe were negative for malignancy. Patient had PET scan in February 2020 showed area of right mid lung suspicious for inflammatory process. There was suspicious right hilar lymph node., Borderline subcarinal lymph node. No metastatic malignancy. There was also a large prostate that areas of abnormal hypermetabolic uptake and clinical correlation for primary prosthetic neoplasm was suspected. Chest x-ray showed a small right pleural effusion with some mild trachea to the right midlung correlate for atelectasis. 1.5 cm nodule possible in the right lower lobe. Follow-up is recommended. Due to history of PE patient had CT angiogram of the chest was done. Showed scattered infiltrates more focal and consolidative in the right hilar region. No acute PE. A small right pleural effusion. Laboratory data showed WBC 8.8 hemoglobin 15.5 platelets 254 D-dimer 0.8, sodium 136 potassium 4.7 chloride 104 BUN 22 and creatinine 1.17 and glucose 148 BNP 213, troponin is 0.012 Coronary risks PCR not detected. Review of Systems Constitutional: Patient does have fever and chills. . No generalized weakness or weight loss. Abdomen: Patient denied nausea vomiting and diarrhea and abdominal pain. Cardiovascular: Patient denies any chest pain or short of breath no palpitations. Respiratory: Patient complains of cough without sputum production and worsening shortness of breath. Neurologic: Patient denied any numbness or tingling headache. Musculoskeletal: Patient denies any complaints of joint swelling or deformity. Skin: Negative Psychiatric: Negative Endocrine: No heat or cold intolerance. No recent weight gain. Genitourinary: No dysuria or hematuria. All other 14 point ROS negative except the above Past Medical History Past Medical History: Cancer, Eye Disorder, Hyperlipidemia, Prostate Disorder, Pulmonary Embolus (PE), Rheumatoid Arthritis (RA) Additional Past Medical History / Comment(s): 2015 R sided PE, bilateral chronic lung nodules, "leaky heart valve", BPH, skin cancer with removals, malignant colon polyps removed, headaches since CHI, bilateral cataracts. History of Any Multi-Drug Resistant Organisms: None Reported Past Surgical History: Appendectomy, Cholecystectomy, Heart Catheterization, Joint Replacement, Orthopedic Surgery Additional Past Surgical History / Comment(s): R knee arthroscopy, bilateral total knee arthroplasties, R shoulder rotator cuff repair, total L shoulder, bilateral elbow surgery, R hand partial amputation d/t injury, colonoscopy with 2 cancerous polypectomies, skin cancer removed, EGD Past Anesthesia/Blood Transfusion Reactions: No Reported Reaction Additional Past Anesthesia/Blood Transfusion Reaction / Comment(s): Pt has never recieved blood. Past Psychological History: No Psychological Hx Reported Smoking Status: Never smoker Past Alcohol Use History: None Reported Past Drug Use History: None Reported - Past Family History Son(s) Family Medical History: Deep Vein Thrombosis (DVT) Father Family Medical History: Cancer Additional Family Medical History / Comment(s): Father of lymphoma at age 70 yrs. Mother Family Medical History: Cancer Additional Family Medical History / Comment(s): Mother had breast cancer. She at age 88yrs. Medications and Allergies Home Medications Medication Instructions Recorded Confirmed Type Atorvastatin [Lipitor] 20 mg PO HS 11/25/18 05/01/21 History Meloxicam [Mobic] 15 mg PO HS 01/21/20 05/01/21 History predniSONE 5 mg PO DAILY 01/21/20 05/01/21 History Furosemide [Lasix] 20 mg PO DAILY 03/14/20 05/01/21 History Albuterol Inhaler [Ventolin Hfa 1 puff INHALATION RT-Q4H PRN 05/01/21 05/01/21 History Inhaler] Calcium Carbonate/Vitamin D3 1 tab PO BID 05/01/21 05/01/21 History [Calcium 500-Vit D3 5 Mcg (200 Iu)] Cholecalciferol [Vitamin D3 (25 50 mcg PO DAILY 05/01/21 05/01/21 History Mcg = 1000 Iu)] Diclofenac Sodium [Voltaren 2 gm TOPICAL TID PRN 05/01/21 05/01/21 History Arthritis Pain 1% Gel] Fluticasone/Salmeterol [Advair 1 inhalation PO RT-BID 05/01/21 05/01/21 History 250-50 Diskus] Leflunomide [Arava] 10 mg PO DAILY 05/01/21 05/01/21 History Omeprazole [PriLOSEC] 20 mg PO DAILY 05/01/21 05/01/21 History Potassium Chloride [Klor-Con 10 ER] 10 meq PO DAILY 05/01/21 05/01/21 History Tamsulosin [Flomax] 0.4 mg PO HS 05/01/21 05/01/21 History Allergies Allergy/AdvReac Type Severity Reaction Status Date / Time No Known Allergies Allergy Verified 05/01/21 11:16 Physical Exam Vitals: Vital Signs Temp Pulse Resp BP Pulse Ox 05/01/21 17:45 98.0 F 88 16 130/66 97 05/01/21 15:35 99 05/01/21 15:28 97 05/01/21 13:54 103 H 05/01/21 13:00 105 H 10 L 123/69 97 05/01/21 12:02 98 05/01/21 12:00 103 H 10 L 129/82 98 05/01/21 11:36 98 05/01/21 11:00 105 H 18 128/84 96 05/01/21 10:40 106 H 20 128/84 96 05/01/21 10:26 99.3 F 106 H 18 108/67 89 L Intake and Output 05/01/21 05/01/21 05/01/21 06:59 14:59 22:59 Other: Weight 104.326 kg PHYSICAL EXAMINATION: Patient is lying in the bed comfortably, no acute distress, awake alert and oriented.. HEENT: Normocephalic. Neck is supple. Pupils reactive. Nostrils clear. Oral cavity is moist. Neck reveals no JVD, carotid bruits, or thyromegaly. CHEST EXAMINATION: Trachea is central. Symmetrical expansion. Bibasilar dim inished sounds mainly on the right side and stated rhonchi.. CARDIAC: Normal S1, S2 with no gallops. No murmurs ABDOMEN: Soft. Bowel sounds normal. No organomegaly. No abdominal bruits. Extremities: reveal no edema. No clubbing or cyanosis Neurologically awake, alert, oriented x3 with well-coordinated movements. No focal deficits noted Skin: No rash or skin lesions. Psychiatric: Coperative. Nonsuicidal Musculoskeletal: No joint swelling or deformity. Normal range of motion. Results CBC & Chem 7: 05/01/21 10:38 05/01/21 10:38 Labs: Abnormal Lab Results - Last 24 Hours (Table) 05/01/21 05/01/21 Range/Units 10:38 10:38 D-Dimer 0.80 H (<0.60) mg/L FEU Sodium 136 L (137-145) mmol/L Carbon Dioxide 21 L (22-30) mmol/L BUN 22 H (9-20) mg/dL Glucose 148 H (74-99) mg/dL Thrombosis Risk Factor Assmnt - DVT/VTE Prophylaxis DVT/VTE Prophylaxis: Pharmacologic Prophylaxis ordered Assessment and Plan Assessment: Acute hypoxic respiratory failure on admission. Shortness of breath, cough and fever on admission. Likely due to right lower lobe pneumonia. Small right sided pleural effusion. CTA chest is negative for PE. History of chronic bilateral lung nodule with hilar adenopathy. Status post bronchoscopy and Biopsy, negative for malignancy Rheumatoid arthritis on prednisone 5 mg daily at home BPH Hyperlipidemia History of skin cancer with removal History of malignant colon polyps removed Previous history of right-sided PE Valvular heart disease DVT prophylaxis with heparin subcu Plan: Patient will be continued on antibiotics in the form of ceftriaxone and azithromycin. continue with DuoNeb's and methylprednisolone at this time. Current with home medications and pulmonary is on board. Patient does have previous workup including bronchoscopy and biopsy of the light lung nodule without evidence of mild intensity. Continue to follow closely. Discuss with the patient in detail at bedside. Time with Patient: Greater than 30
[2021-05-01] MEDS: SYMBICORT 80-4.5 MCG INHALER INHALATION SCH (20:01)
[2021-05-01] MEDS: IPRATROPIUM-ALBUTEROL 3 ML NEB INHALATION PRN (20:01)
[2021-05-01] MEDS: ATORVASTATIN 20 MG TAB PO SCH (20:44)
[2021-05-01] MEDS: TAMSULOSIN 0.4 MG CAP.ER.24H PO SCH (20:44)
[2021-05-02] MEDS: SYMBICORT 80-4.5 MCG INHALER INHALATION SCH ×3 (07:56→22:10)
[2021-05-02] MEDS: SODIUM CHLORIDE 0.9% 1,000 ML IV SCH (08:41)
[2021-05-02] MEDS: CHOLECALCIFEROL 25 MCG (1000 IU) TABLET PO SCH (08:41)
[2021-05-02] MEDS: methylPREDNISolone SOD SUCCI 125 MG/2 ML VIAL IV SCH (08:41)
[2021-05-02] MEDS: PANTOPRAZOLE 40 MG TABLET PO SCH (08:41)
--- NOTE | 2021-05-02 09:11 | P.PN ---
Subjective Progress Note Date: 05/02/21 Principal diagnosis: Community acquired pneumonia 76 -year-old white male patient with past medical history of rheumatoid arthritis, ex-smoker, chronic bilateral pulmonary nodules, and patient has been following with Dr. Fernandez in regards to the pulmonary nodules. Patient states he also sees a doctor out of [place], he is not sure of the name. Patient has history of pulmonary embolism, rheumatoid arthritis, valvular heart disease, BPH. We saw the patient in January 2020, when she was hospitalized with shortness of breath, fever, cough and some phlegm production. His CT of the chest at that time showed masslike consolidation in the right hilar area with the possibility of malignancy and/or pneumonia. He underwent bronchoscopy with bronchial biopsies. Cytology and transbronchial biopsy of the right upper lobe were negative for features diagnostic of neoplasm. Subsequently his PET scan from 02/10/2020 showed area in the right midlung suspicios for inflammatory process, there was a suspicious right hilar lymph node, and borderline subcarinal lymph node. There was no metastatic malignancy, there was an enlarged prostate with areas of abnormal hypermetabolic uptake, and clinical correlation for primary prostatic neoplasm. Patient came into the emergency department on 05/01/2021 for evaluation of cough, fever over the past 3 days, weakness, and shortness of breath. Patient denied any central chest pain, no hemoptysis, he had a fever up to 10 1F, he complained of chills and generalized fatigue. His cough is dry and nonproductive, no nausea vomiting or diarrhea, no lower extremity swelling. Chest x-ray showed small right pleural effusion with some mild streaky opacities with a right upper lung field that may represent some atelectasis, and small right pleural effusion, there is a nodule in the lateral aspect of the right lung and CT of the chest was recommended. The nodule was measuring 1.[address] angiogram of the chest showed scattered infiltrates more focal and consolidative in the right hilar region, no acute pulmonary embolism, and small right pleural effusion. Blood work reveals CBC which is within normal limits, white blood cell count is normal at 8.8, hemoglobin is 15.5, platelet count is 254, d-dimer is 0.8, sodium is 136, potassium is 4.7, chloride is 104, CO2 is 21, B1 is 22, creatinine is 1.17, lactic acid was 1.2, LFTs were within normal limits, troponin was less than 0.012, proBNP was 213, COVID-19 PCR was negative. Patient was placed on empiric antibiotics in the form of azithromycin and Rocephin IV steroids, he was given some IV hydration. He currently appears to be in no acute distress, no altered mentation, no fever while in the hospital. He is awaiting a bed on the medical surgical floor. The patient is seen today 05/02/2021 in follow-up in the emergency room. He is currently sitting up in a stretcher. Awake and alert in no acute distress. Breathing a bit easier today compared to yesterday. Not quite back to his baseline. He has a dry nonproductive cough. He is maintaining O2 saturations in the 90s on 2 L/m per nasal cannula. He is afebrile. Hemodynamically stable. No new labs today. He is maintained on Symbicort, DuoNeb inhalations, IV Solu- Medrol. Antibiotics in the form of ceftriaxone and azithromycin. 0.9 normal saline at 75 ML's per hour. Objective - Vital Signs Vital signs: Vital Signs Temp 97.5 F L 05/02/21 02:05 Pulse 66 05/02/21 02:05 Resp 20 05/02/21 02:05 BP 121/65 05/02/21 02:05 Pulse Ox 97 05/02/21 08:00 Intake & Output 05/01/21 05/02/21 05/02/21 18:59 06:59 18:59 Weight 104.326 kg - Exam GENERAL EXAM: Alert, pleasant 76-year-old gentleman, on 2 L nasal cannula, fairly comfortable in no apparent distress. HEAD: Normocephalic. EYES: Normal reaction of pupils, equal size. NOSE: Clear with pink turbinates. THROAT: No erythema or exudates. NECK: No masses, no JVD. CHEST: No chest wall deformity. LUNGS: Equal air entry with crackles in the right lung base. CVS: S1 and S2 normal with no audible murmur, regular rhythm. ABDOMEN: No hepatosplenomegaly, normal bowel sounds, no guarding or rigidity. SPINE: No scoliosis or deformity SKIN: No rashes CENTRAL NERVOUS SYSTEM: No focal deficits, tone is normal in all 4 extremities. EXTREMITIES: There is no peripheral edema. No clubbing, no cyanosis. Peripheral pulses are intact. - Labs CBC & Chem 7: 05/01/21 10:38 05/01/21 10:38 Labs: Abnormal Lab Results - Last 24 Hours (Table) 05/01/21 05/01/21 Range/Units 10:38 10:38 D-Dimer 0.80 H (<0.60) mg/L FEU Sodium 136 L (137-145) mmol/L Carbon Dioxide 21 L (22-30) mmol/L BUN 22 H (9-20) mg/dL Glucose 148 H (74-99) mg/dL Assessment and Plan Assessment: 1 Acute hypoxemic respiratory failure possibly related to community-acquired pneumonia, chest x-ray showing small right pleural effusion with some mild streaky opacity through the right upper lung field that could be related to atelectasis or underlying infiltrate. COVID-19 PCR was negative. CTA chest showed scattered infiltrates more focal and consolidative in the right hilar region, possibly area of scarring from previous episode of pneumonia in the right lung. No evidence of pulmonary embolism. Small right pleural effusion 2 Right lower lobe 1.5 cm pulmonary nodule reported on the chest x-ray, however CTA chest showed no mediastinal or hilar adenopathy by CT criteria 3 Former smoker 4 History of rheumatoid arthritis on prednisone 5 mg for maintenance 5 Chronic bilateral pulmonary nodules, evident on the CT chest from this admission 6 History of valvular heart disease 7 Former smoker 8 Rule out possibility of COPD 9 Previous bronchoscopy with transbronchial biopsies of the right hilar area right upper lobe, and biopsies were negative for malignancy Plan: The patient was seen and evaluated by Dr. Walsh Improved but not quite back to baseline Continue the current treatment plan Increase his activity as tolerated We will continue to follow I, the cosigning physician, performed a history & physical examination of the patient. Lungs sounds with crackles in the right lung base. Maintaining good O2 saturations in the 90s on 2 L/m per nasal cannula. I discussed the assessment and plan of care with my nurse practitioner, Stacia Barry. I attest to the above note as dictated by her.
[2021-05-02] MEDS: AZITHROMYCIN 500 MG in SODIUM CHLORIDE 0.9% 250 ML IVPB SCH (09:31)
[2021-05-02] MEDS: LEFLUNOMIDE 20 MG TAB PO SCH (11:32)
[2021-05-02] MEDS: IPRATROPIUM-ALBUTEROL 3 ML NEB INHALATION PRN (13:33)
[2021-05-02] MEDS ORDERED: VANCOMYCIN IV PER PHARMACY 1 EACH MISC MISCELLANE PRN (13:56)
[2021-05-02] MEDS ORDERED: VANCOMYCIN 1,750 MG in SODIUM CHLORIDE 0.9% 500 ML 500 ML IVPB ONE (14:30)
[2021-05-02] MEDS: HEPARIN SODIUM,PORCINE/PF 5,000 UNIT/0.5 ML SYRINGE SQ SCH ×2 (18:39→18:41)
[2021-05-02] MEDS: methylPREDNISolone SOD SUCCI 40 MG/ML 1 ML VIAL IV SCH (18:39)
[2021-05-03] MEDS: TAMSULOSIN 0.4 MG CAP.ER.24H PO SCH ×2 (00:11→21:14)
[2021-05-03] MEDS: CALCIUM CARB-VIT D 500 MG-5 MCG TAB PO SCH ×3 (00:11→21:14)
[2021-05-03] MEDS: ATORVASTATIN 20 MG TAB PO SCH ×2 (00:11→21:14)
[2021-05-03] MEDS: methylPREDNISolone SOD SUCCI 40 MG/ML 1 ML VIAL IV SCH ×3 (00:12→15:56)
[2021-05-03] MEDS ORDERED: HEPARIN SODIUM,PORCINE/PF 5,000 UNIT/0.5 ML SYRINGE SQ STA (00:40)
[2021-05-03] MEDS: SODIUM CHLORIDE 0.9% 1,000 ML IV SCH ×2 (00:48→06:20)
[2021-05-03] MEDS: VANCOMYCIN 1,750 MG in SODIUM CHLORIDE 0.9% 500 ML 500 ML IVPB SCH ×2 (06:20→22:49)
[2021-05-03] MEDS: IPRATROPIUM-ALBUTEROL 3 ML NEB INHALATION PRN ×4 (07:44→20:27)
[2021-05-03] MEDS: SYMBICORT 80-4.5 MCG INHALER INHALATION SCH ×2 (07:44→20:27)
[2021-05-03] MEDS: HEPARIN SODIUM,PORCINE/PF 5,000 UNIT/0.5 ML SYRINGE SQ SCH ×2 (08:23→15:56)
[2021-05-03] MEDS: PANTOPRAZOLE 40 MG TABLET PO SCH (08:23)
[2021-05-03] MEDS: CHOLECALCIFEROL 25 MCG (1000 IU) TABLET PO SCH (08:23)
[2021-05-03] MEDS: LEFLUNOMIDE 20 MG TAB PO SCH (08:24)
[2021-05-03] MEDS: AZITHROMYCIN 500 MG in SODIUM CHLORIDE 0.9% 250 ML IVPB SCH (10:21)
[2021-05-03] MEDS: guaiFENesin-Coden 100-10MG/5ML 10 ML CUP PO PRN ×2 (12:01→21:15)
[2021-05-03] MEDS ORDERED: FUROSEMIDE 10 MG/ML 4 ML VIAL IV STA (12:59)
--- NOTE | 2021-05-03 13:12 | P.PN ---
Subjective Progress Note Date: 05/03/21 76 -year-old white male patient with past medical history of rheumatoid arthritis, ex-smoker, chronic bilateral pulmonary nodules, and patient has been following with Dr. Fernandez in regards to the pulmonary nodules. Patient states he also sees a doctor out of [place], he is not sure of the name. Patient has history of pulmonary embolism, rheumatoid arthritis, valvular heart disease, BPH. We saw the patient in January 2020, when she was hospitalized with shortness of breath, fever, cough and some phlegm production. His CT of the chest at that time showed masslike consolidation in the right hilar area with the possibility of malignancy and/or pneumonia. He underwent bronchoscopy with bronchial biop sies. Cytology and transbronchial biopsy of the right upper lobe were negative for features diagnostic of neoplasm. Subsequently his PET scan from 02/10/2020 showed area in the right midlung suspicios for inflammatory process, there was a suspicious right hilar lymph node, and borderline subcarinal lymph node. There was no metastatic malignancy, there was an enlarged prostate with areas of abnormal hypermetabolic uptake, and clinical correlation for primary prostatic neoplasm. Patient came into the emergency department on 05/01/2021 for evaluation of cough, fever over the past 3 days, weakness, and shortness of breath. Patient denied any central chest pain, no hemoptysis, he had a fever up to 10 1F, he complained of chills and generalized fatigue. His cough is dry and nonproductive, no nausea vomiting or diarrhea, no lower extremity swelling. Chest x-ray showed small right pleural effusion with some mild streaky opacities with a right upper lung field that may represent some atelectasis, and small right pleural effusion, there is a nodule in the lateral aspect of the right lung and CT of the chest was recommended. The nodule was measuring 1.[address] angiogram of the chest showed scattered infiltrates more focal and consolidative in the right hilar region, no acute pulmonary embolism, and small right pleural effusion. Blood work reveals CBC which is within normal limits, white blood cell count is normal at 8.8, hemoglobin is 15.5, platelet count is 254, d-dimer is 0.8, sodium is 136, potassium is 4.7, chloride is 104, CO2 is 21, B1 is 22, creatinine is 1.17, lactic acid was 1.2, LFTs were within normal limits, troponin was less than 0.012, proBNP was 213, COVID-19 PCR was negative. Patient was placed on empiric antibiotics in the form of azithromycin and Rocephin IV steroids, he was given some IV hydration. He currently appears to be in no acute distress, no altered mentation, no fever while in the hospital. He is awaiting a bed on the medical surgical floor. On today's evaluation on 05/03/2021 patient seen in follow-up on medical surgical floor, he states his breathing is now much improved, although he seems to be more comfortable, states he was able to walk, but she does have exertional dyspnea, on today's physical exam his lung sounds are positive for coarse crackles throughout the lung cosme, patient has been get an 0.9 normal saline at a rate of 75 ML per hour for the past 48 hours, he states he has not noticed any increased swelling in his legs or anywhere else in his body, he still requires supplemental oxygen, currently on 2 L with a pulse ox of 96%, no fever or chills, his pro calcitonin level was negative, patient remains on a combination of niacin Rocephin, and vancomycin was added in regards to blood culture positive for Staphylococcus epidermidis, final culture is pending. Sputum culture is pending. No acute events overnight. Patient remains on IV steroids, not bringing up any sputum. Objective - Vital Signs Vital signs: Vital Signs Temp 98.0 F 05/03/21 07:42 Pulse 71 05/03/21 12:04 Resp 17 05/03/21 07:42 BP 140/75 05/03/21 07:42 Pulse Ox 96 05/03/21 07:44 Intake & Output 05/02/21 05/03/21 05/03/21 18:59 06:59 18:59 Intake Total 900 Balance 900 Weight 104.326 kg Intake: Intake, IV Titration 900 Amount Azithromycin 500 mg In 250 Sodium Chloride 0.9% 250 ml @ 250 mls/hr IVPB DAILY [facility] Rx#:[id number] Sodium Chloride 0.9% 1, 600 000 ml @ 75 mls/hr IV . [id number] [facility]LE Rx#:[id number] cefTRIAXone 2 gm In 50 Sodium Chloride 0.9% 50 ml @ 100 mls/hr IVPB Q24HR [facility] Rx#:[id number] Other: Voiding Method Toilet # Voids 2 - Exam GENERAL EXAM: Alert, very pleasant, 76-year-old white male resting on 3 L of oxygen with pulse ox of 97% comfortable in no apparent distress. HEAD: Normocephalic/atraumatic. EYES: Normal reaction of pupils, equal size. Conjunctiva pink, sclera white. NOSE: Clear with pink turbinates. THROAT: No erythema or exudates. NECK: No masses, no JVD, no thyroid enlargement, no adenopathy. CHEST: No chest wall deformity. Symmetrical expansion. LUNGS: Equal air entry with coarse crackles throughout his lung cosme CVS: Regular rate and rhythm, normal S1 and S2, no gallops, no murmurs, no rubs ABDOMEN: Soft, nontender. No hepatosplenomegaly, normal bowel sounds, no guarding or rigidity. EXTREMITIES: No clubbing, no edema, no cyanosis, 2+ pulses and upper and lower extremities. MUSCULOSKELETAL: Muscle strength and tone normal. SPINE: No scoliosis or deformity SKIN: No rashes CENTRAL NERVOUS SYSTEM: Alert and oriented -3. No focal deficits, tone is normal in all 4 extremities. PSYCHIATRIC: Alert and oriented -3. Appropriate affect. Intact judgment and insight. - Labs CBC & Chem 7: 05/01/21 10:38 05/01/21 10:38 Labs: Microbiology - Last 24 Hours (Table) 05/02/21 13:42 Gram Stain - Preliminary Sputum Sputum Culture - Preliminary 05/01/21 14:10 Blood Culture Gram Stain - Preliminary Blood Blood Culture - Preliminary Staphylococcus epidermidis 05/01/21 13:58 Blood Culture Gram Stain - Preliminary Blood 05/01/21 13:58 Blood Culture - Final Blood 05/01/21 14:10 Blood Culture - Final Blood Assessment and Plan Plan: Assessment: #1. Shortness of breath, fever chills, cough, possibly related to pneumonia, chest x-ray showing small right pleural effusion with some mild streaky opacity through the right upper lung field that could be related to atelectasis or underlying infiltrate. COVID-19 PCR was negative. CTA chest showed scattered infiltrates more focal and consolidative in the right hilar region, possibly area of scarring from previous episode of pneumonia in the right lung. No evidence of pulmonary embolism. Small right pleural effusion #2. Right lower lobe 1.5 cm pulmonary nodule reported on the chest x-ray, however CTA chest showed no mediastinal or hilar adenopathy by CT criteria #3. Former smoker #4. History of rheumatoid arthritis on prednisone 5 mg for maintenance #5. Chronic bilateral pulmonary nodules, not evident on the CT chest from this admission #6. History of valvular heart disease, with history of aortic regurgitation #7. Former smoker #8. History of COPD with baseline FEV1 of 76% of predicted, based on PFT from October 2020 showing mild obstruction #9. Previous bronchoscopy with transbronchial biopsies of the right hilar area right upper lobe, and biopsies were negative for malignancy Plan: Continue antibiotics, continue vancomycin until final cultures are available 2 sets of blood cultures were positive for staph epidermidis, sputum culture is pending Patient is on chronic prednisone for his history of rheumatoid arthritis and may be a immunosuppressed host, will keep Vanc for now Will await final cultures We'll obtain a repeat chest x-ray Stop IV O's and will give one-time dose Lasix 40 mg 1 IV steroids, nebulized bronchodilators Will continue to follow his clinical course I performed a history & physical examination of the patient and discussed their management with my nurse practitioner, Stacey Aguilar. I reviewed the nurse practitioner's note and agree with the documented findings and plan of care. Lung sounds are positive for dim breath sounds throughout the lung cosme. The findings and the impression was discussed with the patient. I attest to the documentation by the nurse practitioner. Time with Patient: Less than 30
[2021-05-03 13:33] LABS: Basophils % (A) 0 %; Eosinophils % (A) 0 %; HCT 42.3 % (39.0-53.0); Lymphocytes # (A) 0.6 k/uL (1.0-4.8); Lymphocytes % (A) 7 %; MCH 27.9 pg (25.0-35.0); MCHC 30.6 g/dL (31.0-37.0); MCV 90.9 fL (80.0-100.0); Mean Platelet Volume 8.8; Monocytes # (A) 0.6 k/uL (0-1.0); Monocytes % (A) 6 %; Neutrophils # (A) 7.9 k/uL (1.3-7.7); Neutrophils % (A) 86 %; Platelet Count 236 k/uL (150-450); RBC 4.65 m/uL (4.30-5.90); RDW 14.2 % (11.5-15.5); WBC 9.2 k/uL (3.8-10.6)
[2021-05-03 13:56] LABS: AST 36 U/L (17-59); African American GFR (CKD) 88 (>60 ml/min/1.73 sqM); Albumin 3.5 g/dL (3.5-5.0); Albumin/Globulin Ratio 1.2; Alkaline Phosphatase 87 U/L (38-126); Anion Gap 14 mmol/L; Blood Urea Nitrogen 33 mg/dL (9-20); Calcium 8.9 mg/dL (8.4-10.2); Carbon Dioxide 15 mmol/L (22-30); Chloride 111 mmol/L (98-107); Globulin 2.9 g/dL; Glucose 300 mg/dL (74-99); Non-African American GFR(CKD) 76 (>60 ml/min/1.73 sqM); Potassium 4.1 mmol/L (3.5-5.1); Sodium 140 mmol/L (137-145); Total Bilirubin 0.3 mg/dL (0.2-1.3); Total Protein 6.4 g/dL (6.3-8.2)
[2021-05-03 14:03] LABS: ALT 33 U/L (4-49)
--- NOTE | 2021-05-03 16:45 | XR ---
EXAMINATION TYPE: XR chest 2V DATE OF EXAM: 05/03/2021 COMPARISON: 05/01/2021 HISTORY: Short of breath TECHNIQUE: FINDINGS: There is some blunting of the costophrenic angles. This is more on the right side. Heart si ze is normal. There is mild pulmonary congestion. There is left shoulder prosthesis. Mediastinum is n ormal. There is linear density in the right midlung field. Heart is shifted slightly to the right side. IMPRESSION: Pleural effusions with right-sided atelectasis and infiltrate. This appears worse than ex am 2 days ago. Mild heart failure not excluded.
[2021-05-03 20:14] LABS: Glucose,Whole Blood 325 mg/dL (75-99)
[2021-05-03] MEDS ORDERED: INSULIN ASPART (NovoLOG) 100 UNIT/ML VIAL SQ ONE (21:00)
[2021-05-03] MEDS: INSULIN ASPART (NovoLOG) 100 UNIT/ML VIAL SQ SCH (21:14)
[2021-05-03] MEDS: INSULIN DETEMIR (LEVEMIR) 100 UNIT/ML SYR SQ SCH (21:14)
[2021-05-04] MEDS: methylPREDNISolone SOD SUCCI 40 MG/ML 1 ML VIAL IV SCH ×2 (00:20→07:43)
[2021-05-04] MEDS: HEPARIN SODIUM,PORCINE/PF 5,000 UNIT/0.5 ML SYRINGE SQ SCH ×3 (00:20→17:07)
[2021-05-04 07:26] LABS: Glucose,Whole Blood 144 mg/dL (75-99)
[2021-05-04] MEDS: PANTOPRAZOLE 40 MG TABLET PO SCH (07:43)
[2021-05-04] MEDS: CALCIUM CARB-VIT D 500 MG-5 MCG TAB PO SCH ×2 (07:43→20:12)
[2021-05-04] MEDS: CHOLECALCIFEROL 25 MCG (1000 IU) TABLET PO SCH (07:43)
[2021-05-04] MEDS: LEFLUNOMIDE 20 MG TAB PO SCH (07:43)
[2021-05-04] MEDS: AZITHROMYCIN 500 MG in SODIUM CHLORIDE 0.9% 250 ML IVPB SCH (07:43)
[2021-05-04] MEDS: INSULIN ASPART (NovoLOG) 100 UNIT/ML VIAL SQ SCH ×4 (07:44→20:13)
[2021-05-04] MEDS: SYMBICORT 80-4.5 MCG INHALER INHALATION SCH ×2 (09:49→20:26)
[2021-05-04] MEDS ORDERED: FUROSEMIDE 10 MG/ML 4 ML VIAL IV STA (10:51)
[2021-05-04 11:06] LABS: African American GFR (CKD) >90 (>60 ml/min/1.73 sqM); Anion Gap 9 mmol/L; Blood Urea Nitrogen 33 mg/dL (9-20); Calcium 8.9 mg/dL (8.4-10.2); Carbon Dioxide 19 mmol/L (22-30); Chloride 113 mmol/L (98-107); Glucose 163 mg/dL (74-99); Non-African American GFR(CKD) 83 (>60 ml/min/1.73 sqM); Potassium 4.5 mmol/L (3.5-5.1); Sodium 141 mmol/L (137-145)
[2021-05-04 11:08] LABS: Basophils % (A) 0 %; Eosinophils % (A) 0 %; HCT 40.5 % (39.0-53.0); HGB 12.9 gm/dL (13.0-17.5); Lymphocytes # (A) 0.7 k/uL (1.0-4.8); Lymphocytes % (A) 11 %; MCH 28.7 pg (25.0-35.0); MCHC 31.7 g/dL (31.0-37.0); MCV 90.6 fL (80.0-100.0); Mean Platelet Volume 8.6; Monocytes # (A) 0.4 k/uL (0-1.0); Monocytes % (A) 7 %; Neutrophils # (A) 4.8 k/uL (1.3-7.7); Neutrophils % (A) 80 %; Platelet Count 224 k/uL (150-450); RBC 4.47 m/uL (4.30-5.90); RDW 14.2 % (11.5-15.5); WBC 6.1 k/uL (3.8-10.6)
[2021-05-04 11:22] LABS: Glucose,Whole Blood 152 mg/dL (75-99)
--- NOTE | 2021-05-04 11:26 | XR ---
EXAMINATION TYPE: XR chest 1V portable DATE OF EXAM: 05/04/2021 CLINICAL HISTORY: Difficulty breathing progress study. CHF and pneumonia. TECHNIQUE: Single AP portable upright view of the chest is obtained. COMPARISON: Chest x-ray from one day earlier and older studies FINDINGS: Surgical changes left shoulder are partially imaged. Persistent small right pleural effusi on. Persistent patchy bibasilar opacities. Persistent right midlung linear scarring and/or atelectasi s. Cardiac silhouette size is stable and within normal limits. IMPRESSION: Stable small right pleural effusion. Stable patchy bibasilar atelectasis and/or infiltrat e and right mid lung linear scarring. No new infiltrate seen.
[2021-05-04] MEDS ORDERED: VANCOMYCIN 1,750 MG in SODIUM CHLORIDE 0.9% 500 ML 500 ML IVPB SCH (12:00)
--- NOTE | 2021-05-04 12:25 | P.CONS ---
History of Present Illness - Reason for Consult Consult date: 05/03/21 bacteremia Requesting physician: Nasreen Harding - Chief Complaint Fever and cough x 3 days - History of Present Illness History of Present Illness : Patient is a 65-year-old female presenting to the ER yesterday afternoon for evaluation of left foot infection apparently the patient still having problem with the left foot therapy going on for about a month or two and has been evaluated by her primary care physician has been treated with oral amoxicillin last week and the patient apparently was referred to the wound care center the patient was seen in the wound center the day of presentation to the hospital and the patient was referred to go to the ER in view of the extensive infection patient did have underlying neuropathy and denies significant pain to her left foot patient did have extensive wound on the plantar aspect of the left foot patient not sure how it started denies any history of any trauma and not very clear about what local care has been provided to her prior to visiting the hospital but denies having any fever or any chills no chest pain shortness of breath or cough no abdominal pain no diarrhea patient on present to the hospital was afebrile patient did have a normal white count sed rate was more than 140 lactic acid was elevated 2.8 creatinine was normal her liver exams are mildly elevated urine has been negative current episode was negative patient did have a x-ray of the foot soft tissue swelling and here in the form of foot consistent with cellulitis and ulceration no focal bony destruction patient was started on vancomycin and Zosyn has been admitted to hospital vascular surgery has been consulted planning for debridement of the wound in the a.m. per patient, infectious disease was consulted for management of antibiotic therapy Review of system: CONSTITUTIONAL: Positive for weakness denies high-grade fever. EYES: No complaint. ENT: No complaint. RESPIRATORY: No complaint. CARDIOVASCULAR: No complaint. GENITOURINARY: No complaint. GASTROINTESTINAL: No complaint. MUSCULOSKELETAL: As per history of present illness. INTEGUMENTARY : As per history of present illness. PSYCHOLOGIC: No complaint. ENDOCRINE: No complaint. NEUROLOGIC: No complaint. Past medical history : Reviewed, documented below Past surgical history : Reviewed, documented below Social history: Reviewed, documented below Medications: Reviewed, as documented below EXAMINATION: Vital sigans= Reviewed and documented below GENERAL DESCRIPTION: Elderly female up in the chair, no distress. No tachypnea or accessory muscle of respiration use. HEENT: Shows Pallor , no scleral icterus. Oral mucous membrane is dry. NECK: Trachea central, no thyromegaly. LUNGS: Unlabored breathing. Clear to auscultation anteriorly. No wheeze or c rackle. HEART: S1, S2, regular rate and rhythm. ABDOMEN: Soft, no tenderness , guarding or rigidity EXTREMITIES: Left foot plantar aspect did have an extensive wound with slough tissue some surrounding swelling minimal foul-smelling SKIN: No rash, no masses palpable. NEUROLOGICAL: The patient is awake, alert, oriented x3, mood and affect normal. LABS AND RADIOLOGY: Reviewed results see below Assessment : 1-Patient with extensive left diabetic foot infection with extensive involvement on the plantar aspect of the left foot with slough tissue and some swelling will need to cover for the polymicrobial tiarra usually associated with this infection 2-patient with multiple antibiotic allergies that would limit the number of antibiotics safe to use Plan: 1-we will wait for the surgical debridement and deep cultures 2-vancomycin pharmacy to dose target trough of 15 while watching kidney fun ction and vancomycin trough closely 3-switch Zosyn to Unasyn decrease risk of nephrotoxicity 4-local wound care with the Medihoney followed by moist dressing keep the area of the pressure We will follow on clinical condition and cultures to further adjust medication if needed Thank you for this consultation we will follow the patient along with you Past Medical History Past Medical History: Cancer, Eye Disorder, Hyperlipidemia, Prostate Disorder, Pulmonary Embolus (PE), Rheumatoid Arthritis (RA) Additional Past Medical History / Comment(s): 2015 R sided PE, bilateral chronic lung nodules, "leaky heart valve", BPH, skin cancer with removals, malignant colon polyps removed, headaches since CHI, bilateral cataracts. History of Any Multi-Drug Resistant Organisms: None Reported Past Surgical History: Appendectomy, Cholecystectomy, Heart Catheterization, Joint Replacement, Orthopedic Surgery Additional Past Surgical History / Comment(s): R knee arthroscopy, bilateral total knee arthroplasties, R shoulder rotator cuff repair, total L shoulder, bilateral elbow surgery, R hand partial amputation d/t injury, colonoscopy with 2 cancerous polypectomies, skin cancer removed, EGD Past Anesthesia/Blood Transfusion Reactions: No Reported Reaction Additional Past Anesthesia/Blood Transfusion Reaction / Comm: Pt has never recieved blood. Past Psychological History: No Psychological Hx Reported Smoking Status: Never smoker Past Alcohol Use History: None Reported Past Drug Use History: None Reported - Past Family History Son(s) Family Medical History: Deep Vein Thrombosis (DVT) Father Family Medical History: Cancer Additional Family Medical History / Comment(s): Father of lymphoma at age 70 yrs. Mother Family Medical History: Cancer Additional Family Medical History / Comment(s): Mother had breast cancer. She at age 88yrs. Medications and Allergies Home Medications Medication Instructions Recorded Confirmed Type Atorvastatin [Lipitor] 20 mg PO HS 11/25/18 05/01/21 History Meloxicam [Mobic] 15 mg PO HS 01/21/20 05/01/21 History predniSONE 5 mg PO DAILY 01/21/20 05/01/21 History Furosemide [Lasix] 20 mg PO DAILY 03/14/20 05/01/21 History Albuterol Inhaler [Ventolin Hfa 1 puff INHALATION RT-Q4H PRN 05/01/21 05/01/21 History Inhaler] Calcium Carbonate/Vitamin D3 1 tab PO BID 05/01/21 05/01/21 History [Calcium 500-Vit D3 5 Mcg (200 Iu)] Cholecalciferol [Vitamin D3 (25 50 mcg PO DAILY 05/01/21 05/01/21 History Mcg = 1000 Iu)] Diclofenac Sodium [Voltaren 2 gm TOPICAL TID PRN 05/01/21 05/01/21 History Arthritis Pain 1% Gel] Fluticasone/Salmeterol [Advair 1 inhalation PO RT-BID 05/01/21 05/01/21 History 250-50 Diskus] Leflunomide [Arava] 10 mg PO DAILY 05/01/21 05/01/21 History Omeprazole [PriLOSEC] 20 mg PO DAILY 05/01/21 05/01/21 History Potassium Chloride [Klor-Con 10 ER] 10 meq PO DAILY 05/01/21 05/01/21 History Tamsulosin [Flomax] 0.4 mg PO HS 05/01/21 05/01/21 History Allergies Allergy/AdvReac Type Severity Reaction Status Date / Time No Known Allergies Allergy Verified 05/01/21 11:16 Physical Exam Vitals: Vital Signs Temp Pulse Pulse Resp BP Pulse Ox 05/04/21 09:49 94 L 05/04/21 08:00 97.5 F L 64 18 144/73 95 05/04/21 02:00 97.8 F 69 16 120/58 97 05/03/21 20:40 72 05/03/21 20:27 72 05/03/21 19:25 97.6 F 79 18 135/67 96 05/03/21 16:05 97.7 F 73 18 134/70 95 05/03/21 16:01 70 05/03/21 15:48 68 Intake and Output 05/03/21 05/04/21 05/04/21 22:59 06:59 14:59 Other: Voiding Method Toilet # Voids 3 Results CBC & Chem 7: 05/04/21 10:16 05/04/21 10:16 Labs: Abnormal Lab Results - Last 24 Hours (Table) 05/03/21 05/03/21 05/03/21 Range/Units 13:19 13:19 20:12 Hgb (13.0-17.5) gm/dL MCHC 30.6 L (31.0-37.0) g/dL Neutrophils # 7.9 H (1.3-7.7) k/uL Lymphocytes # 0.6 L (1.0-4.8) k/uL Chloride 111 H (98-107) mmol/L Carbon Dioxide 15 L (22-30) mmol/L BUN 33 H (9-20) mg/dL Glucose 300 H (74-99) mg/dL POC Glucose (mg/dL) 325 H (75-99) mg/dL 05/04/21 05/04/21 05/04/21 Range/Units 07:06 10:16 10:16 Hgb 12.9 L (13.0-17.5) gm/dL MCHC (31.0-37.0) g/dL Neutrophils # (1.3-7.7) k/uL Lymphocytes # 0.7 L (1.0-4.8) k/uL Chloride 113 H (98-107) mmol/L Carbon Dioxide 19 L (22-30) mmol/L BUN 33 H (9-20) mg/dL Glucose 163 H (74-99) mg/dL POC Glucose (mg/dL) 144 H (75-99) mg/dL 05/04/21 Range/Units 11:21 Hgb (13.0-17.5) gm/dL MCHC (31.0-37.0) g/dL Neutrophils # (1.3-7.7) k/uL Lymphocytes # (1.0-4.8) k/uL Chloride (98-107) mmol/L Carbon Dioxide (22-30) mmol/L BUN (9-20) mg/dL Glucose (74-99) mg/dL POC Glucose (mg/dL) 152 H (75-99) mg/dL Microbiology - Last 24 Hours (Table) 05/02/21 13:42 Gram Stain - Final Sputum Sputum Culture - Final 05/01/21 13:58 Blood Culture Gram Stain - Preliminary Blood Blood Culture - Preliminary Coagulase Negative Staph
--- NOTE | 2021-05-04 13:11 | P.PN ---
Subjective Progress Note Date: 05/04/21 76 -year-old white male patient with past medical history of rheumatoid arthritis, ex-smoker, chronic bilateral pulmonary nodules, and patient has been following with Dr. Fernandez in regards to the pulmonary nodules. Patient states he also sees a doctor out of [place], he is not sure of the name. Patient has history of pulmonary embolism, rheumatoid arthritis, valvular heart disease, BPH. We saw the patient in January 2020, when she was hospitalized with shortness of breath, fever, cough and some phlegm production. His CT of the chest at that time showed masslike consolidation in the right hilar area with the possibility of malignancy and/or pneumonia. He underwent bronchoscopy with bronchial biop sies. Cytology and transbronchial biopsy of the right upper lobe were negative for features diagnostic of neoplasm. Subsequently his PET scan from 02/10/2020 showed area in the right midlung suspicios for inflammatory process, there was a suspicious right hilar lymph node, and borderline subcarinal lymph node. There was no metastatic malignancy, there was an enlarged prostate with areas of abnormal hypermetabolic uptake, and clinical correlation for primary prostatic neoplasm. Patient came into the emergency department on 05/01/2021 for evaluation of cough, fever over the past 3 days, weakness, and shortness of breath. Patient denied any central chest pain, no hemoptysis, he had a fever up to 10 1F, he complained of chills and generalized fatigue. His cough is dry and nonproductive, no nausea vomiting or diarrhea, no lower extremity swelling. Chest x-ray showed small right pleural effusion with some mild streaky opacities with a right upper lung field that may represent some atelectasis, and small right pleural effusion, there is a nodule in the lateral aspect of the right lung and CT of the chest was recommended. The nodule was measuring 1.[address] angiogram of the chest showed scattered infiltrates more focal and consolidative in the right hilar region, no acute pulmonary embolism, and small right pleural effusion. Blood work reveals CBC which is within normal limits, white blood cell count is normal at 8.8, hemoglobin is 15.5, platelet count is 254, d-dimer is 0.8, sodium is 136, potassium is 4.7, chloride is 104, CO2 is 21, B1 is 22, creatinine is 1.17, lactic acid was 1.2, LFTs were within normal limits, troponin was less than 0.012, proBNP was 213, COVID-19 PCR was negative. Patient was placed on empiric antibiotics in the form of azithromycin and Rocephin IV steroids, he was given some IV hydration. He currently appears to be in no acute distress, no altered mentation, no fever while in the hospital. He is awaiting a bed on the medical surgical floor. On today's evaluation on 05/03/2021 patient seen in follow-up on medical surgical floor, he states his breathing is now much improved, although he seems to be more comfortable, states he was able to walk, but she does have exertional dyspnea, on today's physical exam his lung sounds are positive for coarse crackles throughout the lung cosme, patient has been get an 0.9 normal saline at a rate of 75 ML per hour for the past 48 hours, he states he has not noticed any increased swelling in his legs or anywhere else in his body, he still requires supplemental oxygen, currently on 2 L with a pulse ox of 96%, no fever or chills, his pro calcitonin level was negative, patient remains on a combination of niacin Rocephin, and vancomycin was added in regards to blood culture positive for Staphylococcus epidermidis, final culture is pending. Sputum culture is pending. No acute events overnight. Patient remains on IV steroids, not bringing up any sputum. On 05/04/2021 patient seen in follow-up on medical surgical floor, he states his breathing is separate better today, he is coughing less, room air pulse ox is 94-95%, his been afebrile, hemodynamically has been stable, we will give the patient 1 dose of IV Lasix yesterday, his chest x-ray yesterday showed bilateral pleural effusions. His proBNP came back elevated at 1070, patient has trace pedal edema. Patient has diuresed extensively, he states he feels that he is able to breathe better today. We will give another dose of IV Lasix today. Repeat chest x-ray was reviewed showing stable right pleural effusion, stable patchy bibasilar atelectasis, no infiltrate, right midlung linear scarring. No new infiltrates. She remains on nebulized bronchodilators, he remains on IV steroids, his blood sugars are quite high, is on Symbicort, and azithromycin and Rocephin. His blood culture from 05/01/2021 showed Staphylococcus epidermidis, ID service is following Objective - Vital Signs Vital signs: Vital Signs Temp 97.5 F L 05/04/21 08:00 Pulse 64 05/04/21 08:00 Resp 18 05/04/21 08:00 BP 144/73 05/04/21 08:00 Pulse Ox 94 L 05/04/21 09:49 Intake & Output 05/03/21 05/04/21 05/04/21 18:59 06:59 18:59 Other: Voiding Method Toilet # Voids 3 - Exam GENERAL EXAM: Alert, very pleasant, 76-year-old white male resting on 3 L of oxygen with pulse ox of 97% comfortable in no apparent distress. HEAD: Normocephalic/atraumatic. EYES: Normal reaction of pupils, equal size. Conjunctiva pink, sclera white. NOSE: Clear with pink turbinates. THROAT: No erythema or exudates. NECK: No masses, no JVD, no thyroid enlargement, no adenopathy. CHEST: No chest wall deformity. Symmetrical expansion. LUNGS: Equal air entry with coarse crackles throughout his lung cosme CVS: Regular rate and rhythm, normal S1 and S2, no gallops, no murmurs, no rubs ABDOMEN: Soft, nontender. No hepatosplenomegaly, normal bowel sounds, no guarding or rigidity. EXTREMITIES: No clubbing, no edema, no cyanosis, 2+ pulses and upper and lower extremities. MUSCULOSKELETAL: Muscle strength and tone normal. SPINE: No scoliosis or deformity SKIN: No rashes CENTRAL NERVOUS SYSTEM: Alert and oriented -3. No focal deficits, tone is normal in all 4 extremities. PSYCHIATRIC: Alert and oriented -3. Appropriate affect. Intact judgment and insight. - Labs CBC & Chem 7: 05/04/21 10:16 05/04/21 10:16 Labs: Abnormal Lab Results - Last 24 Hours (Table) 05/03/21 05/03/21 05/03/21 Range/Units 13:19 13:19 20:12 Hgb (13.0-17.5) gm/dL MCHC 30.6 L (31.0-37.0) g/dL Neutrophils # 7.9 H (1.3-7.7) k/uL Lymphocytes # 0.6 L (1.0-4.8) k/uL Chloride 111 H (98-107) mmol/L Carbon Dioxide 15 L (22-30) mmol/L BUN 33 H (9-20) mg/dL Glucose 300 H (74-99) mg/dL POC Glucose (mg/dL) 325 H (75-99) mg/dL 05/04/21 05/04/21 05/04/21 Range/Units 07:06 10:16 10:16 Hgb 12.9 L (13.0-17.5) gm/dL MCHC (31.0-37.0) g/dL Neutrophils # (1.3-7.7) k/uL Lymphocytes # 0.7 L (1.0-4.8) k/uL Chloride 113 H (98-107) mmol/L Carbon Dioxide 19 L (22-30) mmol/L BUN 33 H (9-20) mg/dL Glucose 163 H (74-99) mg/dL POC Glucose (mg/dL) 144 H (75-99) mg/dL 05/04/21 Range/Units 11:21 Hgb (13.0-17.5) gm/dL MCHC (31.0-37.0) g/dL Neutrophils # (1.3-7.7) k/uL Lymphocytes # (1.0-4.8) k/uL Chloride (98-107) mmol/L Carbon Dioxide (22-30) mmol/L BUN (9-20) mg/dL Glucose (74-99) mg/dL POC Glucose (mg/dL) 152 H (75-99) mg/dL Microbiology - Last 24 Hours (Table) 05/02/21 13:42 Gram Stain - Final Sputum Sputum Culture - Final 05/01/21 13:58 Blood Culture Gram Stain - Preliminary Blood Blood Culture - Preliminary Coagulase Negative Staph Assessment and Plan Plan: Assessment: #1. Shortness of breath, fever chills, cough, possibly related to pneumonia, chest x-ray showing small right pleural effusion with some mild streaky opacity through the right upper lung field that could be related to atelectasis or underlying infiltrate. COVID-19 PCR was negative. CTA chest showed scattered infiltrates more focal and consolidative in the right hilar region, possibly area of scarring from previous episode of pneumonia in the right lung. No evidence of pulmonary embolism. Small right pleural effusion #2. Right lower lobe 1.5 cm pulmonary nodule reported on the chest x-ray, however CTA chest showed no mediastinal or hilar adenopathy by CT criteria #3. Former smoker #4. History of rheumatoid arthritis on prednisone 5 mg for maintenance #5. Chronic bilateral pulmonary nodules, not evident on the CT chest from this admission #6. History of valvular heart disease, with history of aortic regurgitation #7. Former smoker #8. History of COPD with baseline FEV1 of 76% of predicted, based on PFT from October 2020 showing mild obstruction #9. Previous bronchoscopy with transbronchial biopsies of the right hilar area right upper lobe, and biopsies were negative for malignancy #10. Staph epidermidis bacteremia, ID service is following #11. Steroid-induced hyperglycemia Plan: A chest x-ray has been reviewed showing bilateral pleural effusions, however patient states that his breathing is improving in response to Lasix We'll give another dose of 40 mg of Lasix now, and repeat another dose later this afternoon at 1600 Follow-up chest x-ray tomorrow We'll switch the IV steroids to oral prednisone ID service recommendations have been reviewed in regards to blood cultures positive for Staphylococcus epidermidis, sputum culture is negative Patient is on room air, he is breathing easier If tomorrow's chest x-ray is improving and patient remains stable he could be considered for discharge home with antibiotics of ID service recommendations I performed a history & physical examination of the patient and discussed their management with my nurse practitioner, Stacey Aguilar. I reviewed the nurse practitioner's note and agree with the documented findings and plan of care. Lung sounds are positive for dim breath sounds throughout the lung cosme. The findings and the impression was discussed with the patient. I attest to the documentation by the nurse practitioner. Time with Patient: Less than 30
[2021-05-04] MEDS ORDERED: FUROSEMIDE 10 MG/ML 4 ML VIAL IV ONE (16:00)
[2021-05-04 16:56] LABS: Glucose,Whole Blood 178 mg/dL (75-99)
[2021-05-04 20:05] LABS: Glucose,Whole Blood 185 mg/dL (75-99)
[2021-05-04] MEDS: TAMSULOSIN 0.4 MG CAP.ER.24H PO SCH (20:12)
[2021-05-04] MEDS: INSULIN DETEMIR (LEVEMIR) 100 UNIT/ML SYR SQ SCH (20:12)
[2021-05-04] MEDS: ATORVASTATIN 20 MG TAB PO SCH (20:12)
[2021-05-05] MEDS: HEPARIN SODIUM,PORCINE/PF 5,000 UNIT/0.5 ML SYRINGE SQ SCH ×3 (00:45→17:45)
[2021-05-05 07:42] LABS: African American GFR (CKD) 85 (>60 ml/min/1.73 sqM); Anion Gap 6 mmol/L; Blood Urea Nitrogen 38 mg/dL (9-20); Calcium 8.8 mg/dL (8.4-10.2); Carbon Dioxide 27 mmol/L (22-30); Chloride 107 mmol/L (98-107); Glucose 130 mg/dL (74-99); Non-African American GFR(CKD) 74 (>60 ml/min/1.73 sqM); Potassium 4.2 mmol/L (3.5-5.1); Sodium 140 mmol/L (137-145)
[2021-05-05 07:52] LABS: Glucose,Whole Blood 105 mg/dL (75-99)
[2021-05-05] MEDS: CHOLECALCIFEROL 25 MCG (1000 IU) TABLET PO SCH (07:52)
[2021-05-05] MEDS: predniSONE 20 MG TAB PO SCH (07:52)
[2021-05-05] MEDS: PANTOPRAZOLE 40 MG TABLET PO SCH (07:52)
[2021-05-05] MEDS: CALCIUM CARB-VIT D 500 MG-5 MCG TAB PO SCH ×2 (07:53→21:03)
[2021-05-05] MEDS: INSULIN ASPART (NovoLOG) 100 UNIT/ML VIAL SQ SCH ×4 (07:53→21:12)
[2021-05-05] MEDS: LEFLUNOMIDE 20 MG TAB PO SCH (07:53)
[2021-05-05] MEDS: AZITHROMYCIN 500 MG in SODIUM CHLORIDE 0.9% 250 ML IVPB SCH (07:53)
[2021-05-05] MEDS: SYMBICORT 80-4.5 MCG INHALER INHALATION SCH ×2 (08:04→20:31)
--- NOTE | 2021-05-05 08:20 | XR ---
EXAMINATION TYPE: XR chest 1V portable DATE OF EXAM: 05/05/2021 COMPARISON: 05/04/2021 HISTORY: Cough TECHNIQUE: Single frontal view of the chest is obtained. FINDINGS: Bilateral infiltrate and pleural effusion greater on the right. May be slightly progressed on the right. Underlying COPD and chronic interstitial lung disease suspected. Heart size stable. No pneumothorax. Postsurgical change left shoulder. IMPRESSION: 1. Bilateral infiltrate and pleural effusion greater on the right correlate for underlying COPD and i nterstitial lung disease.
--- NOTE | 2021-05-05 10:52 | P.PN ---
Subjective Progress Note Date: 05/05/21 76 -year-old white male patient with past medical history of rheumatoid arthritis, ex-smoker, chronic bilateral pulmonary nodules, and patient has been following with Dr. Fernandez in regards to the pulmonary nodules. Patient states he also sees a doctor out of [place], he is not sure of the name. Patient has history of pulmonary embolism, rheumatoid arthritis, valvular heart disease, BPH. We saw the patient in January 2020, when she was hospitalized with shortness of breath, fever, cough and some phlegm production. His CT of the chest at that time showed masslike consolidation in the right hilar area with the possibility of malignancy and/or pneumonia. He underwent bronchoscopy with bronchial biop sies. Cytology and transbronchial biopsy of the right upper lobe were negative for features diagnostic of neoplasm. Subsequently his PET scan from 02/10/2020 showed area in the right midlung suspicios for inflammatory process, there was a suspicious right hilar lymph node, and borderline subcarinal lymph node. There was no metastatic malignancy, there was an enlarged prostate with areas of abnormal hypermetabolic uptake, and clinical correlation for primary prostatic neoplasm. Patient came into the emergency department on 05/01/2021 for evaluation of cough, fever over the past 3 days, weakness, and shortness of breath. Patient denied any central chest pain, no hemoptysis, he had a fever up to 10 1F, he complained of chills and generalized fatigue. His cough is dry and nonproductive, no nausea vomiting or diarrhea, no lower extremity swelling. Chest x-ray showed small right pleural effusion with some mild streaky opacities with a right upper lung field that may represent some atelectasis, and small right pleural effusion, there is a nodule in the lateral aspect of the right lung and CT of the chest was recommended. The nodule was measuring 1.[address] angiogram of the chest showed scattered infiltrates more focal and consolidative in the right hilar region, no acute pulmonary embolism, and small right pleural effusion. Blood work reveals CBC which is within normal limits, white blood cell count is normal at 8.8, hemoglobin is 15.5, platelet count is 254, d-dimer is 0.8, sodium is 136, potassium is 4.7, chloride is 104, CO2 is 21, B1 is 22, creatinine is 1.17, lactic acid was 1.2, LFTs were within normal limits, troponin was less than 0.012, proBNP was 213, COVID-19 PCR was negative. Patient was placed on empiric antibiotics in the form of azithromycin and Rocephin IV steroids, he was given some IV hydration. He currently appears to be in no acute distress, no altered mentation, no fever while in the hospital. He is awaiting a bed on the medical surgical floor. On today's evaluation on 05/03/2021 patient seen in follow-up on medical surgical floor, he states his breathing is now much improved, although he seems to be more comfortable, states he was able to walk, but she does have exertional dyspnea, on today's physical exam his lung sounds are positive for coarse crackles throughout the lung cosme, patient has been get an 0.9 normal saline at a rate of 75 ML per hour for the past 48 hours, he states he has not noticed any increased swelling in his legs or anywhere else in his body, he still requires supplemental oxygen, currently on 2 L with a pulse ox of 96%, no fever or chills, his pro calcitonin level was negative, patient remains on a combination of niacin Rocephin, and vancomycin was added in regards to blood culture positive for Staphylococcus epidermidis, final culture is pending. Sputum culture is pending. No acute events overnight. Patient remains on IV steroids, not bringing up any sputum. On 05/04/2021 patient seen in follow-up on medical surgical floor, he states his breathing is separate better today, he is coughing less, room air pulse ox is 94-95%, his been afebrile, hemodynamically has been stable, we will give the patient 1 dose of IV Lasix yesterday, his chest x-ray yesterday showed bilateral pleural effusions. His proBNP came back elevated at 1070, patient has trace pedal edema. Patient has diuresed extensively, he states he feels that he is able to breathe better today. We will give another dose of IV Lasix today. Repeat chest x-ray was reviewed showing stable right pleural effusion, stable patchy bibasilar atelectasis, no infiltrate, right midlung linear scarring. No new infiltrates. She remains on nebulized bronchodilators, he remains on IV steroids, his blood sugars are quite high, is on Symbicort, and azithromycin and Rocephin. His blood culture from 05/01/2021 showed Staphylococcus epidermidis, ID service is following On today's evaluation on 05/05/2021 patient seen in follow-up on medical surgical floor, he states his breathing is improving, yesterday she received 2 doses of IV Lasix, diuresed extensively, although exact net fluid balance is not available to us at this time, chest x-ray today shows bilateral infiltrates and pleural effusion greater on the right. No pneumothorax. Patient has had no fever or chills, his pro calcitonin level was low this admission at 0.09, not suggestive of bacterial infection or pneumonia. No new labs today other than BMP, his electrolytes were within normal limits, his BUN is 38, creatinine 0.9. Ration had one blood culture positive for coag is negative staph, and one blood culture positive for staph epidermidis, follow-up blood cultures have been negative, ID service has been consulted, patient remains on Rocephin for antibiotic coverage. Sputum culture has shown no growth thus far. no Complaints of chest pain, vital signs are stable, patient is on room air with a pulse ox of 95-97%. Objective - Vital Signs Vital signs: Vital Signs Temp 97.5 F L 05/05/21 08:00 Pulse 65 05/05/21 08:00 Resp 15 05/05/21 08:00 BP 136/79 05/05/21 08:00 Pulse Ox 95 05/05/21 08:00 Intake & Output 05/04/21 05/05/21 05/05/21 18:59 06:59 18:59 Intake Total 100 Balance 100 Intake: Oral 100 Other: Voiding Method Toilet # Voids 2 - Exam GENERAL EXAM: Alert, very pleasant, 76-year-old white male resting on 3 L of oxygen with pulse ox of 97% comfortable in no apparent distress. HEAD: Normocephalic/atraumatic. EYES: Normal reaction of pupils, equal size. Conjunctiva pink, sclera white. NOSE: Clear with pink turbinates. THROAT: No erythema or exudates. NECK: No masses, no JVD, no thyroid enlargement, no adenopathy. CHEST: No chest wall deformity. Symmetrical expansion. LUNGS: Equal air entry with coarse crackles throughout his lung cosme CVS: Regular rate and rhythm, normal S1 and S2, no gallops, no murmurs, no rubs ABDOMEN: Soft, nontender. No hepatosplenomegaly, normal bowel sounds, no guarding or rigidity. EXTREMITIES: No clubbing, no edema, no cyanosis, 2+ pulses and upper and lower extremities. MUSCULOSKELETAL: Muscle strength and tone normal. SPINE: No scoliosis or deformity SKIN: No rashes CENTRAL NERVOUS SYSTEM: Alert and oriented -3. No focal deficits, tone is normal in all 4 extremities. PSYCHIATRIC: Alert and oriented -3. Appropriate affect. Intact judgment and insight. - Labs CBC & Chem 7: 05/04/21 10:16 05/05/21 05:54 Labs: Abnormal Lab Results - Last 24 Hours (Table) 05/04/21 05/04/21 05/04/21 Range/Units 10:16 10: 11:21 Hgb 12.9 L (13.0-17.5) gm/dL Lymphocytes # 0.7 L (1.0-4.8) k/uL Chloride 113 H (98-107) mmol/L Carbon Dioxide 19 L (22-30) mmol/L BUN 33 H (9-20) mg/dL Glucose 163 H (74-99) mg/dL POC Glucose (mg/dL) 152 H (75-99) mg/dL 05/04/21 05/04/21 05/05/21 Range/Units 16:37 20:02 05:54 Hgb (13.0-17.5) gm/dL Lymphocytes # (1.0-4.8) k/uL Chloride (98-107) mmol/L Carbon Dioxide (22-30) mmol/L BUN 38 H (9-20) mg/dL Glucose 130 H (74-99) mg/dL POC Glucose (mg/dL) 178 H 185 H (75-99) mg/dL 05/05/21 Range/Units 07:49 Hgb (13.0-17.5) gm/dL Lymphocytes # (1.0-4.8) k/uL Chloride (98-107) mmol/L Carbon Dioxide (22-30) mmol/L BUN (9-20) mg/dL Glucose (74-99) mg/dL POC Glucose (mg/dL) 105 H (75-99) mg/dL Microbiology - Last 24 Hours (Table) 05/01/21 14:10 Blood Culture Gram Stain - Final Blood Blood Culture - Final Staphylococcus epidermidis 05/03/21 17:48 Blood Culture - Preliminary Blood No Growth after 24 hours 05/04/21 12:00 Sputum Culture - Preliminary Sputum 05/01/21 13:58 Blood Culture Gram Stain - Final Blood Blood Culture - Preliminary Coagulase Negative Staph 05/02/21 13:42 Gram Stain - Final Sputum Sputum Culture - Final Assessment and Plan Plan: Assessment: #1. Shortness of breath, fever chills, cough, possibly related to pneumonia, chest x-ray showing small right pleural effusion with some mild streaky opacity through the right upper lung field that could be related to atelectasis or underlying infiltrate. COVID-19 PCR was negative. CTA chest showed scattered infiltrates more focal and consolidative in the right hilar region, possibly area of scarring from previous episode of pneumonia in the right lung. No evidence of pulmonary embolism. Small right pleural effusion #2. Right lower lobe 1.5 cm pulmonary nodule reported on the chest x-ray, however CTA chest showed no mediastinal or hilar adenopathy by CT criteria #3. Former smoker #4. History of rheumatoid arthritis on prednisone 5 mg for maintenance #5. Chronic bilateral pulmonary nodules, not evident on the CT chest from this admission #6. History of valvular heart disease, with history of aortic regurgitation #7. Former smoker #8. History of COPD with baseline FEV1 of 76% of predicted, based on PFT from October 2020 showing mild obstruction #9. Previous bronchoscopy with transbronchial biopsies of the right hilar area right upper lobe, and biopsies were negative for malignancy #10. Staph epidermidis bacteremia, ID service is following #11. Steroid-induced hyperglycemia Plan: Today's chest x-ray has been reviewed still showing right greater than left pleural effusions, we'll obtain ultrasound of the chest to see if there is enough fluid for thoracentesis on the right side Vital signs have been stable, no fever or chills, overall breathing has significantly improved according to the patient Continue oral prednisone, we will ask ID service if patient can be switched to oral antibiotics as his IV has infiltrated and he does not want a new one inserted Increase activity as tolerated. Follow-up blood cultures have been negative, sputum culture is negative If ultrasound of the chest does not show sizable pleural effusion pocket, and p atient can be switched to oral antibiotics per ID service, he will be considered for discharge home I performed a history & physical examination of the patient and discussed their management with my nurse practitioner, Stacey Aguilar. I reviewed the nurse practitioner's note and agree with the documented findings and plan of care. Lung sounds are positive for dim breath sounds throughout the lung cosme. The findings and the impression was discussed with the patient. I attest to the documentation by the nurse practitioner. Time with Patient: Less than 30
[2021-05-05] MEDS ORDERED: VANCOMYCIN TROUGH DUE 1 EACH MISC MISCELLANE ONE (11:00)
--- NOTE | 2021-05-05 11:22 | US ---
EXAMINATION TYPE: US chest DATE OF EXAM: 05/05/2021 COMPARISON: NONE CLINICAL HISTORY: anabel. chest with markings. TECHNIQUE: Targeted ultrasound of the posterior lower bilateral hemithoraces EXAM MEASUREMENTS: Right Pleural Effusion pocket size: 4.8 cm Right skin surface to fluid distance: 3.2 cm Left Pleural Effusion pocket size: 0 cm Left skin surface to fluid distance: 0 cm Right side marked for possible thoracentesis outside the dept. Pulmonologists are able to review the images in the patient?s EMR. A lot of movement with patients breathing. IMPRESSIONS: Small right pleural effusion. No evidence of left-sided pleural effusion
[2021-05-05 11:28] LABS: Glucose,Whole Blood 157 mg/dL (75-99)
[2021-05-05] MEDS: CEFDINIR 300 MG CAP PO SCH ×2 (13:34→21:04)
--- NOTE | 2021-05-05 13:39 | PN ---
PROGRESS NOTE DATE OF SERVICE: 05/05/2021 REASON FOR FOLLOWUP: 1. Positive blood culture, likely contamination. 2. Pneumonia, possibly community-acquired. INTERVAL HISTORY: The patient is afebrile. The patient is breathing more comfortably. The patient denies having any chest pain. He continues to have a cough. Did have minimal sputum, which he provided for a sample. No vomiting. No abdominal pain or diarrhea. PHYSICAL EXAMINATION: Blood pressure 136/79, pulse of 65, temperature 97.5. He is 95% on room air. General description is an elderly male up in the bed in no distress. RESPIRATORY SYSTEM: Unlabored breathing. Decreased intensity of breath sounds. No wheeze. HEART: S1, S2. Regular rate and rhythm. ABDOMEN: Soft. No tenderness. LABS: BUN of 38, creatinine 0.99. Sputum has been usual respiratory tiarra. Blood culture with Staph epi. Repeat is negative. DIAGNOSTIC IMPRESSION AND PLAN: 1. Patient with a positive blood culture with Staphylococcus epidermidis, likely contaminant. No need for further workup. 2. Pneumonia, possibly community-acquired. Sputum is negative for resistant pathogen. Patient lost his IV. Will give him oral Ceftin. Continue supportive care. MMODL / IJN: [id number] /
--- NOTE | 2021-05-05 15:19 | P.CONS ---
History of Present Illness - Reason for Consult Consult date: 05/03/21 Positive blood culture Requesting physician: Nasreen Harding - Chief Complaint Fever and cough 4 days - History of Present Illness History of present illness: Patient is a 76 year male presenting to the hospital on 05/01/2021 for evaluation of fever and cough that he been going on for 3 days before presentation to the hospital the patient did have a fever of 101F, the patient also have a cough which is moderate intensity however the patient is unable to bring up any sputum the patient denies having any chest pain. Denies any nausea no vomiting no abdominal pain no diarrhea no urinary symptoms patient currently do not have any open sores on the skin no swelling no redness no joint swelling, patient on presentation hospital have low-grade fever of 99.3F patient did have a normal white count, valencia PCR was negative, patient did have a chest x-ray small right pleural effusion right mid leg atelectasis, patient did have CT and, the chills that was negative for PPD show scattered infiltrate more focal and consultation in the right hilar region, casey ent did have blood cultures drawn as can be positive was staph that has prompted this infection disease consultation patient is currently being treated with combination of Rocephin and Zithromax and vancomycin CONSTITUTIONAL: Positive for weakness. Fever EYES: No complaint. ENT:No complaint. RESPIRATORY: As per history of present illness CARDIOVASCULAR: No complaint. GENITOURINARY: No complaint. GASTROINTESTINAL: No complaint. MUSCULOSKELETAL: No complaint. INTEGUMENTARY: No complaint. PSYCHOLOGICAL: No complaint. ENDOCRINE: No complaint. NEUROLOGIC: No complaint. GENERAL DESCRIPTION: Elderly male lying in bed, no distress. No tachypnea or accessory muscle of respiration use. HEENT: Shows Pallor , no scleral icterus. Oral mucous membrane is dry. No pharyngeal erythema or thrush NECK: Trachea central, no thyromegaly. LUNGS: Unlabored breathing. Coarse breath sounds on the right side. No wheeze or crackle. HEART: S1, S2, regular rate and rhythm. No loud murmur ABDOMEN: Soft, no tenderness , guarding or rigidity, no organomegaly EXTREMITIES: No edema of feet. SKIN: No rash, no masses palpable. NEUROLOGICAL: The patient is awake, alert, oriented x3, mood and affect normal. Diagnostic impression: 1-patient presented to the hospital with a fever and cough likely secondary to right lower lobe community-acquired pneumonia currently with no suspicious for resistant gram-positive or gram-negative infection 2-positive blood culture with staph epi likely skin contaminant as staph epi is not a common pathogen to cause pneumonia Plan: 1-blood culture to be to document clearance of bacteremia 2-obtain sputum for Gram stain and culture 3-Rocephin and Zithromax to continue 4-discontinue vancomycin We will follow on clinical condition and cultures to further adjust medication if needed Thank you for this consultation will follow this patient with you Past Medical History Past Medical History: Cancer, Eye Disorder, Hyperlipidemia, Prostate Disorder, Pulmonary Embolus (PE), Rheumatoid Arthritis (RA) Additional Past Medical History / Comment(s): 2014 R sided PE, bilateral chronic lung nodules, "leaky heart valve", BPH, skin cancer with removals, malignant colon polyps removed, headaches since CHI, bilateral cataracts. History of Any Multi-Drug Resistant Organisms: None Reported Past Surgical History: Appendectomy, Cholecystectomy, Heart Catheterization, Joint Replacement, Orthopedic Surgery Additional Past Surgical History / Comment(s): R knee arthroscopy, bilateral total knee arthroplasties, R shoulder rotator cuff repair, total L shoulder, bilateral elbow surgery, R hand partial amputation d/t injury, colonoscopy with 2 cancerous polypectomies, skin cancer removed, EGD Past Anesthesia/Blood Transfusion Reactions: No Reported Reaction Additional Past Anesthesia/Blood Transfusion Reaction / Comm: Pt has never recieved blood. Past Psychological History: No Psychological Hx Reported Smoking Status: Never smoker Past Alcohol Use History: None Reported Past Drug Use History: None Reported - Past Family History Son(s) Family Medical History: Deep Vein Thrombosis (DVT) Father Family Medical History: Cancer Additional Family Medical History / Comment(s): Father of lymphoma at age 70 yrs. Mother Family Medical History: Cancer Additional Family Medical History / Comment(s): Mother had breast cancer. She at age 88yrs. Medications and Allergies Home Medications Medication Instructions Recorded Confirmed Type RX: Atorvastatin [Lipitor] 20 mg PO HS 11/25/18 05/01/21 History RX: Meloxicam [Mobic] 15 mg PO HS 01/21/20 05/01/21 History RX: predniSONE 5 mg PO DAILY 01/21/20 05/01/21 History Furosemide [Lasix] 20 mg PO DAILY 03/14/20 05/01/21 History Albuterol Inhaler [Ventolin Hfa 1 puff INHALATION RT-Q4H PRN 05/01/21 05/01/21 History Inhaler] Calcium Carbonate/Vitamin D3 1 tab PO BID 05/01/21 05/01/21 History [Calcium 500-Vit D3 5 Mcg (200 Iu)] Cholecalciferol [Vitamin D3 (25 50 mcg PO DAILY 05/01/21 05/01/21 History Mcg = 1000 Iu)] Diclofenac Sodium [Voltaren 2 gm TOPICAL TID PRN 05/01/21 05/01/21 History Arthritis Pain 1% Gel] Fluticasone/Salmeterol [Advair 1 inhalation PO RT-BID 05/01/21 05/01/21 History 250-50 Diskus] Leflunomide [Arava] 10 mg PO DAILY 05/01/21 05/01/21 History Omeprazole [PriLOSEC] 20 mg PO DAILY 05/01/21 05/01/21 History Potassium Chloride [Klor-Con 10 ER] 10 meq PO DAILY 05/01/21 05/01/21 History Tamsulosin [Flomax] 0.4 mg PO HS 05/01/21 05/01/21 History Allergies Allergy/AdvReac Type Severity Reaction Status Date / Time No Known Allergies Allergy Verified 05/01/21 11:16 Physical Exam Vitals: Vital Signs Temp Pulse Resp BP Pulse Ox 05/05/21 14:00 97.7 F 63 15 152/71 96 05/05/21 08:00 97.5 F L 65 15 136/79 95 05/05/21 02:00 97.6 F 65 16 146/73 97 05/04/21 20:00 72 16 05/04/21 19:39 97.6 F 72 16 157/93 96 Intake and Output 05/05/21 05/05/21 05/05/21 06:59 14:59 22:59 Intake Total 100 Balance 100 Intake: Oral 100 Other: # Voids 2 Results CBC & Chem 7: 05/04/21 10:16 05/05/21 05:54 Labs: Abnormal Lab Results - Last 24 Hours (Table) 05/04/21 05/04/21 05/05/21 Range/Units 16:37 20:02 05:54 BUN 38 H (9-20) mg/dL Glucose 130 H (74-99) mg/dL POC Glucose (mg/dL) 178 H 185 H (75-99) mg/dL 05/05/21 05/05/21 Range/Units 07:49 11:25 BUN (9-20) mg/dL Glucose (74-99) mg/dL POC Glucose (mg/dL) 105 H 157 H (75-99) mg/dL Microbiology - Last 24 Hours (Table) 05/01/21 14:10 Blood Culture Gram Stain - Final Blood Blood Culture - Final Staphylococcus epidermidis 05/03/21 17:48 Blood Culture - Preliminary Blood No Growth after 24 hours 05/04/21 12:00 Sputum Culture - Preliminary Sputum 05/01/21 13:58 Blood Culture Gram Stain - Final Blood Blood Culture - Preliminary Coagulase Negative Staph
[2021-05-05 17:28] LABS: Glucose,Whole Blood 157 mg/dL (75-99)
[2021-05-05] MEDS: ATORVASTATIN 20 MG TAB PO SCH (21:03)
[2021-05-05] MEDS: TAMSULOSIN 0.4 MG CAP.ER.24H PO SCH (21:03)
[2021-05-05 21:09] LABS: Glucose,Whole Blood 136 mg/dL (75-99)
[2021-05-05] MEDS: INSULIN DETEMIR (LEVEMIR) 100 UNIT/ML SYR SQ SCH (21:11)
[2021-05-06] MEDS: HEPARIN SODIUM,PORCINE/PF 5,000 UNIT/0.5 ML SYRINGE SQ SCH ×2 (00:47→09:13)
[2021-05-06 07:07] LABS: Glucose,Whole Blood 94 mg/dL (75-99)
[2021-05-06] MEDS: INSULIN ASPART (NovoLOG) 100 UNIT/ML VIAL SQ SCH ×2 (08:01→13:04)
[2021-05-06] MEDS: SYMBICORT 80-4.5 MCG INHALER INHALATION SCH (08:54)
[2021-05-06] MEDS: predniSONE 20 MG TAB PO SCH (09:13)
[2021-05-06] MEDS: CALCIUM CARB-VIT D 500 MG-5 MCG TAB PO SCH (09:13)
[2021-05-06] MEDS: CHOLECALCIFEROL 25 MCG (1000 IU) TABLET PO SCH (09:13)
[2021-05-06] MEDS: PANTOPRAZOLE 40 MG TABLET PO SCH (09:13)
[2021-05-06 11:44] LABS: Glucose,Whole Blood 114 mg/dL (75-99)
[2021-05-06] MEDS: LEFLUNOMIDE 20 MG TAB PO SCH (11:45)
[2021-05-06] MEDS: CEFDINIR 300 MG CAP PO SCH (11:46)
--- NOTE | 2021-05-06 14:19 | P.PN ---
Subjective Progress Note Date: 05/06/21 Principal diagnosis: Community acquired pneumonia 76 -year-old white male patient with past medical history of rheumatoid arthritis, ex-smoker, chronic bilateral pulmonary nodules, and patient has been following with Dr. Fernandez in regards to the pulmonary nodules. Patient states he also sees a doctor out of [place], he is not sure of the name. Patient has history of pulmonary embolism, rheumatoid arthritis, valvular heart disease, BPH. We saw the patient in January 2020, when she was hospitalized with shortness of breath, fever, cough and some phlegm production. His CT of the chest at that time showed masslike consolidation in the right hilar area with the possibility of malignancy and/or pneumonia. He underwent bronchoscopy with bronchial biopsies. Cytology and transbronchial biopsy of the right upper lobe were negative for features diagnostic of neoplasm. Subsequently his PET scan from 02/10/2020 showed area in the right midlung suspicios for inflammatory process, there was a suspicious right hilar lymph node, and borderline subcarinal lymph node. There was no metastatic malignancy, there was an enlarged prostate with areas of abnormal hypermetabolic uptake, and clinical correlation for primary prostatic neoplasm. Patient came into the emergency department on 05/01/2021 for evaluation of cough, fever over the past 3 days, weakness, and shortness of breath. Patient denied any central chest pain, no hemoptysis, he had a fever up to 10 1F, he complained of chills and generalized fatigue. His cough is dry and nonproductive, no nausea vomiting or diarrhea, no lower extremity swelling. Chest x-ray showed small right pleural effusion with some mild streaky opacities with a right upper lung field that may represent some atelectasis, and small right pleural effusion, there is a nodule in the lateral aspect of the right lung and CT of the chest was recommended. The nodule was measuring 1.[address] angiogram of the chest showed scattered infiltrates more focal and consolidative in the right hilar region, no acute pulmonary embolism, and small right pleural effusion. Blood work reveals CBC which is within normal limits, white blood cell count is normal at 8.8, hemoglobin is 15.5, platelet count is 254, d-dimer is 0.8, sodium is 136, potassium is 4.7, chloride is 104, CO2 is 21, B1 is 22, creatinine is 1.17, lactic acid was 1.2, LFTs were within normal limits, troponin was less than 0.012, proBNP was 213, COVID-19 PCR was negative. Patient was placed on empiric antibiotics in the form of azithromycin and Rocephin IV steroids, he was given some IV hydration. He currently appears to be in no acute distress, no altered mentation, no fever while in the hospital. He is awaiting a bed on the medical surgical floor. The patient is seen today 05/02/2021 in follow-up in the emergency room. He is currently sitting up in a stretcher. Awake and alert in no acute distress. Breathing a bit easier today compared to yesterday. Not quite back to his baseline. He has a dry nonproductive cough. He is maintaining O2 saturations in the 90s on 2 L/m per nasal cannula. He is afebrile. Hemodynamically stable. No new labs today. He is maintained on Symbicort, DuoNeb inhalations, IV Solu- Medrol. Antibiotics in the form of ceftriaxone and azithromycin. 0.9 normal saline at 75 ML's per hour. On today's evaluation on 05/03/2021 patient seen in follow-up on medical surgical floor, he states his breathing is now much improved, although he seems to be more comfortable, states he was able to walk, but she does have exertional dyspnea, on today's physical exam his lung sounds are positive for coarse crackles throughout the lung cosme, patient has been get an 0.9 normal saline at a rate of 75 ML per hour for the past 48 hours, he states he has not noticed any increased swelling in his legs or anywhere else in his body, he still requires supplemental oxygen, currently on 2 L with a pulse ox of 96%, no fever or chills, his pro calcitonin level was negative, patient remains on a combination of niacin Rocephin, and vancomycin was added in regards to blood culture positive for Staphylococcus epidermidis, final culture is pending. Sputum culture is pending. No acute events overnight. Patient remains on IV steroids, not bringing up any sputum. On 05/04/2021 patient seen in follow-up on medical surgical floor, he states his breathing is separate better today, he is coughing less, room air pulse ox is 94-95%, his been afebrile, hemodynamically has been stable, we will give the patient 1 dose of IV Lasix yesterday, his chest x-ray yesterday showed bilateral pleural effusions. His proBNP came back elevated at 1070, patient has trace pedal edema. Patient has diuresed extensively, he states he feels that he is able to breathe better today. We will give another dose of IV Lasix today. Repeat chest x-ray was reviewed showing stable right pleural effusion, stable patchy bibasilar atelectasis, no infiltrate, right midlung linear scarring. No new infiltrates. She remains on nebulized bronchodilators, he remains on IV steroids, his blood sugars are quite high, is on Symbicort, and azithromycin and Rocephin. His blood culture from 05/01/2021 showed Staphylococcus epidermidis, ID service is following On today's evaluation on 05/05/2021 patient seen in follow-up on medical surgical floor, he states his breathing is improving, yesterday she received 2 doses of IV Lasix, diuresed extensively, although exact net fluid balance is not available to us at this time, chest x-ray today shows bilateral infiltrates and pleural effusion greater on the right. No pneumothorax. Patient has had no fever or chills, his pro calcitonin level was low this admission at 0.09, not suggestive of bacterial infection or pneumonia. No new labs today other than BMP, his electrolytes were within normal limits, his BUN is 38, creatinine 0.9. Ration had one blood culture positive for coag is negative staph, and one blood culture positive for staph epidermidis, follow-up blood cultures have been negative, ID service has been consulted, patient remains on Rocephin for antibiotic coverage. Sputum culture has shown no growth thus far. no Complaints of chest pain, vital signs are stable, patient is on room air with a pulse ox of 95-97%. The patient is seen today 05/06/2021 in follow-up on the regular medical floor. He is currently sitting up in a chair at the bedside. Awake and alert in no acute distress. He denies any worsening shortness of breath, cough or congestion. No plans for thoracentesis at this point. He is maintaining good O2 saturations in the mid 90s on room air. He is afebrile. Hemodynamically stable. Sputum culture revealed no growth. He is continued on DuoNeb inhalations, Symbicort, prednisone, Omnicef. Objective - Vital Signs Vital signs: Vital Signs Temp 97.4 F L 05/06/21 08:00 Pulse 63 05/06/21 08:00 Resp 16 05/06/21 08:00 BP 158/74 05/06/21 08:00 Pulse Ox 96 05/06/21 08:00 Intake & Output 05/05/21 05/06/21 05/06/21 18:59 06:59 18:59 Other: # Voids 3 1 - Exam GENERAL EXAM: Alert, pleasant 76-year-old gentleman, on room air, fairly comfortable in no apparent distress. HEAD: Normocephalic. EYES: Normal reaction of pupils, equal size. NOSE: Clear with pink turbinates. THROAT: No erythema or exudates. NECK: No masses, no JVD. CHEST: No chest wall deformity. LUNGS: Equal air entry with crackles in the right lung base. CVS: S1 and S2 normal with no audible murmur, regular rhythm. ABDOMEN: No hepatosplenomegaly, normal bowel sounds, no guarding or rigidity. SPINE: No scoliosis or deformity SKIN: No rashes CENTRAL NERVOUS SYSTEM: No focal deficits, tone is normal in all 4 extremities. EXTREMITIES: There is no peripheral edema. No clubbing, no cyanosis. Peripheral pulses are intact. - Labs CBC & Chem 7: 05/04/21 10:16 05/05/21 05:54 Labs: Abnormal Lab Results - Last 24 Hours (Table) 05/05/21 05/05/21 05/06/21 Range/Units 17:22 21:07 11:43 POC Glucose (mg/dL) 157 H 136 H 114 H (75-99) mg/dL Microbiology - Last 24 Hours (Table) 05/04/21 12:00 Gram Stain - Final Sputum Sputum Culture - Final 05/03/21 17:48 Blood Culture - Preliminary Blood No Growth after 48 hours Assessment and Plan Assessment: 1 Acute hypoxemic respiratory failure possibly related to community-acquired pneumonia, chest x-ray showing small right pleural effusion with some mild streaky opacity through the right upper lung field that could be related to atelectasis or underlying infiltrate. COVID-19 PCR was negative. CTA chest showed scattered infiltrates more focal and consolidative in the right hilar region, possibly area of scarring from previous episode of pneumonia in the right lung. No evidence of pulmonary embolism. Small right pleural effusion. Ultrasound of the right chest reveals a pocket of only 4.8 cm 2 Right lower lobe 1.5 cm pulmonary nodule reported on the chest x-ray, however CTA chest showed no mediastinal or hilar adenopathy by CT criteria 3 Former smoker 4 History of rheumatoid arthritis on prednisone 5 mg for maintenance 5 Chronic bilateral pulmonary nodules, evident on the CT chest from this admission 6 History of valvular heart disease 7 Former smoker 8 Rule out possibility of COPD 9 Previous bronchoscopy with transbronchial biopsies of the right hilar area right upper lobe, and biopsies were negative for malignancy Plan: The patient was seen and evaluated by Dr. Walsh Ultrasound revealed minimal fluid in the right base No plans for thoracentesis Cleared for discharge from the pulmonary standpoint I, the cosigning physician, performed a history & physical examination of the patient. Lungs sounds with crackles in the right lung base. Maintaining good O2 saturations in the 90s on room air. I discussed the assessment and plan of care with my nurse practitioner, Stacia Barry. I attest to the above note as dictated by her.
[2021-05-06 15:19] VITALS: BP 140/77; PULSE 66; RESP 18; TEMP 97.6
--- NOTE | 2021-05-06 17:27 | PN ---
PROGRESS NOTE DATE OF SERVICE: 05/06/2021 REASON FOR FOLLOWUP: 1. Pneumonia. 2. Positive blood culture. INTERVAL HISTORY: Patient was seen on rounds early this afternoon. The patient has been afebrile. Patient is breathing comfortably on room air. The patient denies any chest pain. Cough decreased in intensity. Remains to be dry in nature. No vomiting. No abdominal pain. No diarrhea. PHYSICAL EXAMINATION: Blood pressure 140/77 with a pulse of 63, temperature 97.6, he is 96% on room air. General description is an elderly male up in the chair in no distress. Respiratory system: Unlabored breathing, clear to auscultation anteriorly. Heart S1, S2. Regular rate and rhythm. Abdomen soft, no tenderness. LABS: Sputum culture has been negative for resistant pathogen. Blood culture repeat is negative. DIAGNOSTIC IMPRESSION AND PLAN: 1. Patient with a positive blood culture Staph epi likely contaminant. The patient has no clinical disease to go along with it. Repeat blood culture negative. No need for further workup for the same. 2. Patient with pneumonia possible community-acquired, overall improvement. Finish therapy with oral Ceftin to finish a 5 day course of therapy and close outpatient followup. MMODL / IJN: [id number] /
--- NOTE | 2021-05-08 10:40 | P.PN ---
Subjective Progress Note Date: 05/05/21 Principal diagnosis: Acute hypoxemic respiratory failure possibly related to community-acquired pneumonia Pleural effusion Right lower lobe nodule 76-year-old male with a known history of hyperlipidemia, history of right-sided PE, bilateral chronic lung nodules, rheumatoid arthritis, valvular heart disease, BPH presents to ER with complaints of worsening shortness of breath for the last 1 week and also developed a fever this morning along with cough without much sputum production. Denied any chest pain. No headache or dizziness or lightheadedness. He is on follow with pulmonary due to history of chronic lung nodule. Patient had CT chest showed masslike consolidation in the right hilar area with possibility of malignancy and/or pneumonia. Patient also underwent bronchoscopy with bronchial biopsy. Biopsy of the right upper lobe were negative for malignancy. Patient had PET scan in February 2020 showed area of right mid lung suspicious for inflammatory process. There was suspicious right hilar lymph node., Borderline subcarinal lymph node. No metastatic malignancy. There was also a large prostate that areas of abnormal hypermetabolic uptake and clinical correlation for primary prosthetic neoplasm was suspected. Chest x-ray showed a small right pleural effusion with some mild trachea to the right midlung correlate for atelectasis. 1.5 cm nodule possible in the right lower lobe. Follow-up is recommended. Due to history of PE patient had CT angiogram of the chest was done. Showed scattered infiltrates more focal and consolidative in the right hilar region. No acute PE. A small right pleural effusion. Laboratory data showed WBC 8.8 hemoglobin 15.5 platelets 254 D-dimer 0.8, sodium 136 potassium 4.7 chloride 104 BUN 22 and creatinine 1.17 and glucose 148 BNP 213, troponin is 0.012 Coronary risks PCR not detected. Objective - Vital Signs Vital signs: Vital Signs Temp 97.7 F 05/05/21 14:00 Pulse 63 05/05/21 14:00 Resp 15 05/05/21 14:00 BP 152/71 05/05/21 14:00 Pulse Ox 96 05/05/21 14:00 Intake & Output 05/04/21 05/05/21 05/05/21 18:59 06:59 18:59 Intake Total 100 Balance 100 Intake: Oral 100 Other: Voiding Method Toilet # Voids 2 - Exam PHYSICAL EXAMINATION: GENERAL: The patient is alert and oriented x3, not in any acute distress. Well developed, well nourished. HEENT: Pupils are round and equally reacting to light. EOMI. No scleral icterus. No conjunctival pallor. Normocephalic, atraumatic. No pharyngeal erythema. No thyromegaly. CARDIOVASCULAR: S1 and S2 present. No murmurs, rubs, or gallops. PULMONARY: Chest is clear to auscultation, no wheezing or crackles. ABDOMEN: Soft, nontender, nondistended, normoactive bowel sounds. No palpable organomegaly. MUSCULOSKELETAL: No joint swelling or deformity. EXTREMITIES: No cyanosis, clubbing, or pedal edema. NEUROLOGICAL: Gross neurological examination did not reveal any focal deficits. SKIN: No rashes. - Labs CBC & Chem 7: 05/04/21 10:16 05/05/21 05:54 Labs: Abnormal Lab Results - Last 24 Hours (Table) 05/04/21 05/04/21 05/05/21 Range/Units 16:37 20:02 05:54 BUN 38 H (9-20) mg/dL Glucose 130 H (74-99) mg/dL POC Glucose (mg/dL) 178 H 185 H (75-99) mg/dL 05/05/21 05/05/21 Range/Units 07:49 11:25 BUN (9-20) mg/dL Glucose (74-99) mg/dL POC Glucose (mg/dL) 105 H 157 H (75-99) mg/dL Microbiology - Last 24 Hours (Table) 05/01/21 14:10 Blood Culture Gram Stain - Final Blood Blood Culture - Final Staphylococcus epidermidis 05/03/21 17:48 Blood Culture - Preliminary Blood No Growth after 24 hours 05/04/21 12:00 Sputum Culture - Preliminary Sputum 05/01/21 13:58 Blood Culture Gram Stain - Final Blood Blood Culture - Preliminary Coagulase Negative Staph Assessment and Plan Assessment: Acute hypoxic respiratory failure on admission. Shortness of breath, cough and fever on admission. Likely due to right lower lobe pneumonia. Small right sided pleural effusion. CTA chest is negative for PE. History of chronic bilateral lung nodule with hilar adenopathy. Status post bronchoscopy and Biopsy, negative for malignancy Rheumatoid arthritis on prednisone 5 mg daily at home BPH Hyperlipidemia History of skin cancer with removal History of malignant colon polyps removed Previous history of right-sided PE Valvular heart disease DVT prophylaxis with heparin subcu Plan: Patient will be continued on antibiotics in the form of ceftriaxone and azithromycin. continue with DuoNeb's and methylprednisolone at this time. Current with home medications and pulmonary is on board. Patient does have prev ious workup including bronchoscopy and biopsy of the light lung nodule without evidence of mild intensity. Continue to follow closely. Discuss with the patient in detail at bedside.
== END 2021-05-06 16:00 | disposition home or self-care (01) | DRG 193 ==
LOC: EC 10:13 → 4SSUR 13:13
PROVIDERS: ADMIT Internal Medicine; ATTEND Internal Medicine
DX: J18.9 Pneumonia, unspecified organism (principal); J96.01 Acute respiratory failure with hypoxia; J44.0 Chronic obstructive pulmonary disease with (acute) lower respiratory infection; R78.81 Bacteremia; J90 Pleural effusion, not elsewhere classified; E11.621 Type 2 diabetes mellitus with foot ulcer; E11.628 Type 2 diabetes mellitus with other skin complications; E11.65 Type 2 diabetes mellitus with hyperglycemia; E78.5 Hyperlipidemia, unspecified; G62.9 Polyneuropathy, unspecified; I35.1 Nonrheumatic aortic (valve) insufficiency; Z20.822 Contact with and (suspected) exposure to COVID-19; Z79.899 Other long term (current) drug therapy; Z80.3 Family history of malignant neoplasm of breast; Z80.7 Family history of other malignant neoplasms of lymphoid, hematopoietic and related tissues; Z86.718 Personal history of other venous thrombosis and embolism; Z87.891 Personal history of nicotine dependence; Z88.1 Allergy status to other antibiotic agents; Z96.653 Presence of artificial knee joint, bilateral; Z86.711 Personal history of pulmonary embolism; Z85.828 Personal history of other malignant neoplasm of skin; Z85.038 Personal history of other malignant neoplasm of large intestine; T38.0X5A Adverse effect of glucocorticoids and synthetic analogues, initial encounter; M19.90 Unspecified osteoarthritis, unspecified site; N40.0 Benign prostatic hyperplasia without lower urinary tract symptoms; M06.9 Rheumatoid arthritis, unspecified
CPT/HCPCS: 36415; 71045; 71046; 71275; 76604; 80048; 80053; 83605; 83735; 83880; 84145; 84484; 85025; 85379; 85610; 85730; 87040; 87070; 87205; 87635; 93005; 94640; 94760; 96361; 96365; 96366; 96367; 96368; 96372; 96375; 96376; 99285

== ENCOUNTER 2021-10-30 08:12 | Inpatient (IN) | payer MEDICARE, OTHER ==
[2021-10-30] MEDS ORDERED: IPRATROPIUM-ALBUTEROL 3 ML NEB INHALATION STA (08:28)
--- NOTE | 2021-10-30 08:34 | ED ---
General Adult HPI - General Chief complaint: Shortness of Breath Stated complaint: SOB Time Seen by Provider: 10/30/21 08:15 Source: patient, RN notes reviewed, old records reviewed Mode of arrival: ambulatory Limitations: no limitations - History of Present Illness Initial comments: This is 76-year-old male presents emergency Department complaining of difficulty breathing for the last for 5 days. Patient states he has a little bit of cough but it's nonproductive. Patient denies any fever chills per patient states she was seen in urgent care last and they could not see anything on x-ray and is comatose was negative. Patient states he did get COVID vaccine but did not get any boosters. Patient also states for the last couple of days she's had intermittent chest pain in the center of his chest. Patient states currently he has no chest pain. Patient denies any diaphoretic episodes. Patient denies any radiation of the pain. Patient states exertion definitely makes the difficulty breathing worse. Patient states he used to be a smoker many years ago but hasn't smoked a long time. Patient denies any swollen legs or calf tenderness. - Related Data Home Medications Medication Instructions Recorded Confirmed Atorvastatin [Lipitor] 20 mg PO HS 11/25/18 10/30/21 Meloxicam [Mobic] 15 mg PO HS 01/21/20 10/30/21 predniSONE 5 mg PO DAILY 01/21/20 10/30/21 Furosemide [Lasix] 20 mg PO DAILY 03/14/20 10/30/21 Albuterol Inhaler [Ventolin Hfa 1 puff INHALATION RT-Q4H PRN 05/01/21 10/30/21 Inhaler] Calcium Carbonate/Vitamin D3 1 tab PO BID 05/01/21 10/30/21 [Calcium 500-Vit D3 5 Mcg (200 Iu)] Cholecalciferol [Vitamin D3 (25 50 mcg PO DAILY 05/01/21 10/30/21 Mcg = 1000 Iu)] Diclofenac Sodium [Voltaren 2 gm TOPICAL TID PRN 05/01/21 10/30/21 Arthritis Pain 1% Gel] Fluticasone/Salmeterol [Advair 1 puff INHALATION RT-BID 05/01/21 10/30/21 250-50 Diskus] Omeprazole [PriLOSEC] 20 mg PO DAILY 05/01/21 10/30/21 Potassium Chloride [Klor-Con 10 ER] 10 meq PO DAILY 05/01/21 10/30/21 Tamsulosin [Flomax] 0.4 mg PO HS 05/01/21 10/30/21 Leflunomide [Arava] 20 mg PO DAILY 10/30/21 10/30/21 Allergies Allergy/AdvReac Type Severity Reaction Status Date / Time No Known Allergies Allergy Verified 10/30/21 09:42 Review of Systems ROS Statement: Those systems with pertinent positive or pertinent negative responses have been documented in the HPI. ROS Other: All systems not noted in ROS Statement are negative. Past Medical History Past Medical History: Cancer, Eye Disorder, Hyperlipidemia, Prostate Disorder, Pulmonary Embolus (PE), Rheumatoid Arthritis (RA) Additional Past Medical History / Comment(s): 2014 R sided PE, bilateral chronic lung nodules, "leaky heart valve", BPH, skin cancer with removals, malignant colon polyps removed, headaches since CHI, bilateral cataracts. History of Any Multi-Drug Resistant Organisms: None Reported Past Surgical History: Appendectomy, Cholecystectomy, Heart Catheterization, Joint Replacement, Orthopedic Surgery Additional Past Surgical History / Comment(s): R knee arthroscopy, bilateral total knee arthroplasties, R shoulder rotator cuff repair, total L shoulder, b ilateral elbow surgery, R hand partial amputation d/t injury, colonoscopy with 2 cancerous polypectomies, skin cancer removed, EGD Past Anesthesia/Blood Transfusion Reactions: No Reported Reaction Additional Past Anesthesia/Blood Transfusion Reaction / Comment(s): Pt has never recieved blood. Past Psychological History: No Psychological Hx Reported Smoking Status: Never smoker Past Alcohol Use History: None Reported Past Drug Use History: None Reported - Past Family History Son(s) Family Medical History: Deep Vein Thrombosis (DVT) Father Family Medical History: Cancer Additional Family Medical History / Comment(s): Father of lymphoma at age 70 yrs. Mother Family Medical History: Cancer Additional Family Medical History / Comment(s): Mother had breast cancer. She at age 88yrs. General Exam - General Exam Comments Initial Comments: GENERAL: Patient is well-developed and well-nourished. Patient is nontoxic and well- hydrated and is in mild distress. ENT: Neck is soft and supple. No significant lymphadenopathy is noted. Oropharynx is clear. Moist mucous membranes. Neck has full range of motion without eliciting any pain. EYES: The sclera were anicteric and conjunctiva were pink and moist. Extraocular movements were intact and pupils were equal round and reactive to light. Eye lids were unremarkable. PULMONARY: Unlabored respirations. Good breath sounds bilaterally. Patient scattered crackles in the bases and occasional wheeze. CARDIOVASCULAR: There is a regular rate and rhythm without any murmurs gallops or rubs. ABDOMEN: Soft and nontender with normal bowel sounds. SKIN: Skin is clear with no lesions or rashes and otherwise unremarkable. NEUROLOGIC: Patient is alert and oriented x3. Cranial nerves II through XII are grossly intact. Motor and sensory are also intact. Normal speech, volume and content. Symmetrical smile. MUSCULOSKELETAL: Normal extremities with adequate strength and full range of motion. No lower extremity swelling or edema. No calf tenderness. LYMPHATICS: No significant lymphadenopathy is noted PSYCHIATRIC: Normal psychiatric evaluation. Limitations: no limitations Course Vital Signs 10/30/21 10/30/21 10/30/21 08:16 08:23 08:26 Temperature 97 F L Pulse Rate 97 Respiratory 22 20 Rate Blood Pressure 154/87 O2 Sat by Pulse 97 98 Oximetry 10/30/21 10/30/21 10/30/21 08:30 09:00 09:09 Temperature Pulse Rate 89 88 88 Respiratory 20 Rate Blood Pressure O2 Sat by Pulse 96 Oximetry 10/30/21 10/30/21 09:30 10:30 Temperature Pulse Rate 83 89 Respiratory 20 18 Rate Blood Pressure 125/83 125/83 O2 Sat by Pulse 93 L 93 L Oximetry Medical Decision Making - Medical Decision Making EKG shows sinus rhythm at 83 bpm [place] interval 172 QRS is 90 QT interval 370 QTC is 418. Patient's EKG shows no ST segment elevation or depression. Patient received a breathing treatment and he continued to wheeze a little bit or prominently now. Patient states he got up to go to the bathroom he so short of breath he can barely make it back. - Lab Data Result diagrams: 10/30/21 08:37 10/30/21 08:37 Lab Results 10/30/21 10/30/21 10/30/21 Range/Units 08:37 08:37 08:37 WBC 4.6 (3.8-10.6) k/uL RBC 5.21 (4.30-5.90) m/uL Hgb 14.5 (13.0-17.5) gm/dL Hct 43.8 (39.0-53.0) % MCV 84.2 (80.0-100.0) fL MCH 27.9 (25.0-35.0) pg MCHC 33.1 (31.0-37.0) g/dL RDW 14.5 (11.5-15.5) % Plt Count 232 (150-450) k/uL MPV 8.3 Neutrophils % 44 % Lymphocytes % 42 % Monocytes % 9 % Eosinophils % 3 % Basophils % 1 % Neutrophils # 2.0 (1.3-7.7) k/uL Lymphocytes # 1.9 (1.0-4.8) k/uL Monocytes # 0.4 (0-1.0) k/uL Eosinophils # 0.1 (0-0.7) k/uL Basophils # 0.0 (0-0.2) k/uL PT 9.9 (9.0-12.0) sec INR 0.9 (<1.2) APTT 23.6 (22.0-30.0) sec D-Dimer 0.62 H (<0.60) mg/L FEU Sodium 139 (137-145) mmol/L Potassium 3.9 (3.5-5.1) mmol/L Chloride 107 (98-107) mmol/L Carbon Dioxide 20 L (22-30) mmol/L Anion Gap 12 mmol/L BUN 20 (9-20) mg/dL Creatinine 0.88 (0.66-1.25) mg/dL Est GFR (CKD-EPI)AfAm >90 (>60 ml/min/1.73 sqM) Est GFR (CKD-EPI)NonAf 84 (>60 ml/min/1.73 sqM) Glucose 115 H (74-99) mg/dL Plasma Lactic Acid Jarret (0.7-2.0) mmol/L Calcium 9.2 (8.4-10.2) mg/dL Total Bilirubin 0.7 (0.2-1.3) mg/dL AST 26 (17-59) U/L ALT 22 (4-49) U/L Alkaline Phosphatase 125 (38-126) U/L Troponin I (0.000-0.034) ng/mL NT-Pro-B Natriuret Pep pg/mL Total Protein 6.7 (6.3-8.2) g/dL Albumin 3.7 (3.5-5.0) g/dL Coronavirus (PCR) (Not Detectd) 10/30/21 10/30/21 10/30/21 Range/Units 08:37 08:37 08:37 WBC (3.8-10.6) k/uL RBC (4.30-5.90) m/uL Hgb (13.0-17.5) gm/dL Hct (39.0-53.0) % MCV (80.0-100.0) fL MCH (25.0-35.0) pg MCHC (31.0-37.0) g/dL RDW (11.5-15.5) % Plt Count (150-450) k/uL MPV Neutrophils % % Lymphocytes % % Monocytes % % Eosinophils % % Basophils % % Neutrophils # (1.3-7.7) k/uL Lymphocytes # (1.0-4.8) k/uL Monocytes # (0-1.0) k/uL Eosinophils # (0-0.7) k/uL Basophils # (0-0.2) k/uL PT (9.0-12.0) sec INR (<1.2) APTT (22.0-30.0) sec D-Dimer (<0.60) mg/L FEU Sodium (137-145) mmol/L Potassium (3.5-5.1) mmol/L Chloride (98-107) mmol/L Carbon Dioxide (22-30) mmol/L Anion Gap mmol/L BUN (9-20) mg/dL Creatinine (0.66-1.25) mg/dL Est GFR (CKD-EPI)AfAm (>60 ml/min/1.73 sqM) Est GFR (CKD-EPI)NonAf (>60 ml/min/1.73 sqM) Glucose (74-99) mg/dL Plasma Lactic Acid Jarret 2.0 (0.7-2.0) mmol/L Calcium (8.4-10.2) mg/dL Total Bilirubin (0.2-1.3) mg/dL AST (17-59) U/L ALT (4-49) U/L Alkaline Phosphatase (38-126) U/L Troponin I <0.012 (0.000-0.034) ng/mL NT-Pro-B Natriuret Pep 48 pg/mL Total Protein (6.3-8.2) g/dL Albumin (3.5-5.0) g/dL Coronavirus (PCR) (Not Detectd) 10/30/21 Range/Units 08:37 WBC (3.8-10.6) k/uL RBC (4.30-5.90) m/uL Hgb (13.0-17.5) gm/dL Hct (39.0-53.0) % MCV (80.0-100.0) fL MCH (25.0-35.0) pg MCHC (31.0-37.0) g/dL RDW (11.5-15.5) % Plt Count (150-450) k/uL MPV Neutrophils % % Lymphocytes % % Monocytes % % Eosinophils % % Basophils % % Neutrophils # (1.3-7.7) k/uL Lymphocytes # (1.0-4.8) k/uL Monocytes # (0-1.0) k/uL Eosinophils # (0-0.7) k/uL Basophils # (0-0.2) k/uL PT (9.0-12.0) sec INR (<1.2) APTT (22.0-30.0) sec D-Dimer (<0.60) mg/L FEU Sodium (137-145) mmol/L Potassium (3.5-5.1) mmol/L Chloride (98-107) mmol/L Carbon Dioxide (22-30) mmol/L Anion Gap mmol/L BUN (9-20) mg/dL Creatinine (0.66-1.25) mg/dL Est GFR (CKD-EPI)AfAm (>60 ml/min/1.73 sqM) Est GFR (CKD-EPI)NonAf (>60 ml/min/1.73 sqM) Glucose (74-99) mg/dL Plasma Lactic Acid Jarret (0.7-2.0) mmol/L Calcium (8.4-10.2) mg/dL Total Bilirubin (0.2-1.3) mg/dL AST (17-59) U/L ALT (4-49) U/L Alkaline Phosphatase (38-126) U/L Troponin I (0.000-0.034) ng/mL NT-Pro-B Natriuret Pep pg/mL Total Protein (6.3-8.2) g/dL Albumin (3.5-5.0) g/dL Coronavirus (PCR) Not Detected (Not Detectd) Disposition Clinical Impression: Acute exacerbation of chronic obstructive pulmonary disease Disposition: ADMITTED IP TO THIS HOSP Referrals: Allen Barber DO [Primary Care Provider] - 1-2 days Time of Disposition: 12:11
[2021-10-30 09:04] LABS: Basophils % (A) 1 %; Eosinophils # (A) 0.1 k/uL (0-0.7); Eosinophils % (A) 3 %; HCT 43.8 % (39.0-53.0); HGB 14.5 gm/dL (13.0-17.5); Lymphocytes # (A) 1.9 k/uL (1.0-4.8); Lymphocytes % (A) 42 %; MCH 27.9 pg (25.0-35.0); MCHC 33.1 g/dL (31.0-37.0); MCV 84.2 fL (80.0-100.0); Mean Platelet Volume 8.3; Monocytes # (A) 0.4 k/uL (0-1.0); Monocytes % (A) 9 %; Neutrophils % (A) 44 %; Platelet Count 232 k/uL (150-450); RBC 5.21 m/uL (4.30-5.90); RDW 14.5 % (11.5-15.5); WBC 4.6 k/uL (3.8-10.6)
[2021-10-30 09:17] LABS: ALT 22 U/L (4-49); AST 26 U/L (17-59); African American GFR (CKD) >90 (>60 ml/min/1.73 sqM); Albumin 3.7 g/dL (3.5-5.0); Alkaline Phosphatase 125 U/L (38-126); Anion Gap 12 mmol/L; Blood Urea Nitrogen 20 mg/dL (9-20); Calcium 9.2 mg/dL (8.4-10.2); Carbon Dioxide 20 mmol/L (22-30); Chloride 107 mmol/L (98-107); Glucose 115 mg/dL (74-99); Non-African American GFR(CKD) 84 (>60 ml/min/1.73 sqM); Potassium 3.9 mmol/L (3.5-5.1); Sodium 139 mmol/L (137-145); Total Bilirubin 0.7 mg/dL (0.2-1.3); Total Protein 6.7 g/dL (6.3-8.2)
--- NOTE | 2021-10-30 09:25 | XR ---
EXAMINATION TYPE: XR chest 2V DATE OF EXAM: 10/30/2021 COMPARISON: 05/05/2021 HISTORY: Shortness of breath TECHNIQUE: Frontal and lateral views of the chest are obtained. FINDINGS: Scattered senescent parenchymal changes noted. Hyperinflation compatible with COPD. Small right-sided pleural effusion with peripheral chronic density which has improved since prior sindy dy. Heart size is stable. Mediastinal structures are stable and grossly unremarkable. No evidence for hilar prominence. Degenerative changes dorsal spine. IMPRESSION: 1. Small right-sided pleural effusion with peripheral chronic density which has improved since prior study.
[2021-10-30 09:27] LABS: INR 0.9 (<1.2); Partial Thromboplastin Time 23.6 sec (22.0-30.0); Prothrombin Time 9.9 sec (9.0-12.0)
[2021-10-30] MEDS ORDERED: IPRATROPIUM-ALBUTEROL 3 ML NEB INHALATION PRN (12:22)
[2021-10-30] MEDS ORDERED: methylPREDNISolone SOD SUCCI 125 MG/2 ML VIAL IV STA (12:22)
[2021-10-30] MEDS ORDERED: DICLOFENAC SODIUM GEL 100 GM TUBE TOPICAL PRN (15:35)
--- NOTE | 2021-10-30 16:26 | P.HPIM ---
History of Present Illness H&P Date: 10/30/21 Chief Complaint: Shortness of breath This is 76-year-old male with past medical history significant for possible COPD right-sided PE 2 years ago rheumatoid arthritis chronic lung nodules bilaterally heart disease benign prostatic hypertrophy presents emergency Department co mplaining of difficulty breathing for the last for 5 days. Patient states he has a little bit of cough but it's nonproductive. Patient denies any fever chills per patient states she was seen in urgent care last and they could not see anything on x-ray and is comatose was negative. Patient states he did get COVID vaccine but did not get any boosters. Patient also states for the last couple of days she's had intermittent left-sided chest pain 2 days. Patient denies any diaphoretic episodes. Patient denies any radiation of the pain. Patient states exertion definitely makes the difficulty breathing worse. Patient states he used to be a smoker many years ago but hasn't smoked a long time. He denies any nausea vomiting or abdominal pain patient denies any fever or chills. No recent sick contacts. Review of Systems All 14 review of systems evaluated and all negative except for above. Past Medical History Past Medical History: Cancer, Eye Disorder, Hyperlipidemia, Prostate Disorder, Pulmonary Embolus (PE), Rheumatoid Arthritis (RA) Additional Past Medical History / Comment(s): 2014 R sided PE, bilateral chronic lung nodules, "leaky heart valve", BPH, skin cancer with removals, malignant colon polyps removed, headaches since CHI, bilateral cataracts. History of Any Multi-Drug Resistant Organisms: None Reported Past Surgical History: Appendectomy, Cholecystectomy, Heart Catheterization, Joint Replacement, Orthopedic Surgery Additional Past Surgical History / Comment(s): R knee arthroscopy, bilateral total knee arthroplasties, R shoulder rotator cuff repair, total L shoulder, bilateral elbow surgery, R hand partial amputation d/t injury, colonoscopy with 2 cancerous polypectomies, skin cancer removed, EGD Past Anesthesia/Blood Transfusion Reactions: No Reported Reaction Additional Past Anesthesia/Blood Transfusion Reaction / Comment(s): Pt has never recieved blood. Past Psychological History: No Psychological Hx Reported Additional Psychological History / Comment(s): Pt resides with his spouse. He is independent. Smoking Status: Never smoker Past Alcohol Use History: None Reported Additional Past Alcohol Use History / Comment(s): Pt started smoking in 1973, mostly cigars and quit in 1993. Past Drug Use History: None Reported - Past Family History Son(s) Family Medical History: Deep Vein Thrombosis (DVT) Father Family Medical History: Cancer Additional Family Medical History / Comment(s): Father of lymphoma at age 70 yrs. Mother Family Medical History: Cancer Additional Family Medical History / Comment(s): Mother had breast cancer. She at age 88yrs. Medications and Allergies Home Medications Medication Instructions Recorded Confirmed Type Atorvastatin [Lipitor] 20 mg PO HS 11/25/18 10/30/21 History Meloxicam [Mobic] 15 mg PO HS 01/21/20 10/30/21 History predniSONE 5 mg PO DAILY 01/21/20 10/30/21 History Furosemide [Lasix] 20 mg PO DAILY 03/14/20 10/30/21 History Albuterol Inhaler [Ventolin Hfa 1 puff INHALATION RT-Q4H PRN 05/01/21 10/30/21 History Inhaler] Calcium Carbonate/Vitamin D3 1 tab PO BID 05/01/21 10/30/21 History [Calcium 500-Vit D3 5 Mcg (200 Iu)] Cholecalciferol [Vitamin D3 (25 50 mcg PO DAILY 05/01/21 10/30/21 History Mcg = 1000 Iu)] Diclofenac Sodium [Voltaren 2 gm TOPICAL TID PRN 05/01/21 10/30/21 History Arthritis Pain 1% Gel] Fluticasone/Salmeterol [Advair 1 puff INHALATION RT-BID 05/01/21 10/30/21 History 250-50 Diskus] Omeprazole [PriLOSEC] 20 mg PO DAILY 05/01/21 10/30/21 History Potassium Chloride [Klor-Con 10 ER] 10 meq PO DAILY 05/01/21 10/30/21 History Tamsulosin [Flomax] 0.4 mg PO HS 05/01/21 10/30/21 History Leflunomide [Arava] 20 mg PO DAILY 10/30/21 10/30/21 History Allergies Allergy/AdvReac Type Severity Reaction Status Date / Time No Known Allergies Allergy Verified 10/30/21 09:42 Physical Exam Vitals: Vital Signs Temp Pulse Pulse Resp BP BP Pulse Ox 10/30/21 15:46 86 04/11/22 14:07 97.5 F L 83 16 140/80 96 10/30/21 13:12 97.5 F L 85 18 145/84 93 L 10/30/21 12:00 88 18 120/70 98 10/30/21 10:30 89 18 125/83 93 L 10/30/21 09:30 83 20 125/83 93 L 10/30/21 09:09 88 10/30/21 09:00 88 10/30/21 08:30 89 20 96 10/30/21 08:26 20 10/30/21 08:23 98 10/30/21 08:16 97 F L 97 22 154/87 97 Intake and Output 10/30/21 10/30/21 10/30/21 06:59 14:59 22:59 Intake Total 240 Balance 240 Intake: Oral 240 Other: # Voids 1 Weight 95.254 kg General: non toxic, no distress, appears at stated age Derm: warm, dry Head: atraumatic, normocephalic, symmetric Eyes: EOMI, no lid lag, anicteric sclera Mouth: no lip lesion, mucus membranes moist Cardiovascular: S1S2 reg, no murmur, positive posterior tibial pulse bilateral, Lungs: Diminished air entry bilaterally with bilateral wheezing Abdominal: soft, nontender to palpation, no guarding, no appreciable organomegaly Ext: no gross muscle atrophy, no edema, no contractures Neuro: CN II-XI grossly intact, no focal neuro deficits Psych: Alert, oriented, appropriate affect Results CBC & Chem 7: 10/30/21 08:37 10/30/21 08:37 Labs: Abnormal Lab Results - Last 24 Hours (Table) 10/30/21 10/30/21 Range/Units 08:37 08:37 D-Dimer 0.62 H (<0.60) mg/L FEU Carbon Dioxide 20 L (22-30) mmol/L Glucose 115 H (74-99) mg/dL Thrombosis Risk Factor Assmnt - Choose All That Apply Each Factor Represents 1 point: Abnormal pulmonary function (COPD) Each Risk Factor Represents 3 Points: Age 75 years or older Thrombosis Risk Factor Assessment Total Risk Factor Score: 4 Thrombosis Risk Factor Assessment Level: Moderate Risk Assessment and Plan Assessment: Assessment and plan: #Acute hypoxia respiratory failure secondary to COPD exacerbation -Patient is wheezing on examination -Resume IV sermons on -Bronchodilator treatment -Azithromycin 500 mg by mouth daily #Chest pain -EKG showed normal sinus rhythm with nonspecific ST segment or T-wave changes -Patient has history of right PE 2 years ago and d-dimer is elevated we'll order CT of the chest -2-D echo ordered -Cardiology consulted -10 troponin #History of valvular heart disease -Echo ordered. #History of rheumatoid arthritis with lung nodules -15 mg prednisone daily -We'll resume oral prednisone on discharge Chronic condition: Dyslipidemia History of skin cancer status post removal. History of malignant colon polyp status post removal. DVT prophylaxis with Lovenox Full code
--- NOTE | 2021-10-30 16:35 | CT ---
EXAMINATION TYPE: CT chest angio for PE DATE OF EXAM: 10/30/2021 COMPARISON: CT dated 05/01/2021 HISTORY: Acute hypoxia and shortness of breath. CT DLP: 368.8 mGy.cm. Automated Exposure Control for Dose Reduction was Utilized. TECHNIQUE AND CONTRAST: CTA scan of the thorax is performed with IV Contrast, patient injected with 100ml mL of Isovue 370, p ulmonary angiogram protocol. MIP Images are created on an independent workstation and reviewed. FINDINGS: No definite filling defect within the pulmonary trunk, main pulmonary arteries, lobar and segmental b ranches to suggest pulmonary embolism. Subsegmental branches are suboptimally assessed. The pulmonary trunk measures 3.2 cm suggestive of pulmonary hypertension. No gross cardiomegaly. Coronary and linnette rial atherosclerotic calcifications. No pericardial effusion. Moderate to large right-sided pleural effusion. Minimal left pleural effusion. Bilateral lower lobe s ubsegmental pulmonary atelectasis. Thick atelectasis with nodular infiltration seen in the right uppe r lobe, grossly stable. Scattered multiple variable sized bilateral pulmonary nodules, slightly progr essed in the left upper lobe and predominantly subcentimeter size. Bilateral apical pulmonary fibrotic changes. Patent trachea and main bronchi. Slightly more prominent mediastinal lymph nodes yet still of subcentimeter size. Previous cholecystectomy. Bilateral gynecom astia changes. No gross aggressive bone lesion. IMPRESSION: No major or central pulmonary embolism. Moderate to large right pleural effusion with persistent bila teral pulmonary nodular infiltration, apparently slightly progressed in the left upper lobe. This cou ld be related to chronic infection or inflammation, atypical infection or subtle underlying neoplasti c process cannot be excluded, for further workup. Other findings as described above.
[2021-10-30] MEDS: ENOXAPARIN 40 MG/0.4 ML SYRINGE SQ SCH (16:41)
[2021-10-30] MEDS: AZITHROMYCIN 500 MG TAB PO SCH (16:50)
[2021-10-30] MEDS: methylPREDNISolone SOD SUCCI 125 MG/2 ML VIAL IV SCH ×2 (17:31→23:24)
--- NOTE | 2021-10-30 18:33 | P.CNPUL ---
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 Mendenhall or for abnormal x-ray and CAT scan now wants to switch the Dr. His current symptoms started about 4-5 days ago with increased shortness of breath this dyspnea on exertion he has mostly dry nonproductive cough which has been consistent also started around the same time. He does have a prior history of pneumonia and pleural effusion, patient had a computed tomography scan chest performed today revealed organized small pleural effusion on the right base with nodular opacities scattered in the left upper lobe area patient has been evaluated in the past by pulmonary and recommended not to do the biopsy and not to do thoracentesis due to high risk of pneumothorax. He said he had a PET scan several years ago which was nondiagnostic. He does complain of constitutional symptoms with weight loss about 15-20 pounds with no desire to eat he has been evaluated by a fungating mass in the left supraclavicular area likely skin cancer with a biopsy scheduled for at [facility] patient is also scheduled one-month later at pulmonary clinic. On specific questioning he denies any fevers chills denies any hemoptysis denies any chest pain or radiation of pain no night sweats fever or chills denies any bowel or bladder related problem. Currently patient is being treated with bronchodilators and IV steroids and broad-spectrum antibiotics Review of Systems All systems: negative Past Medical History Past Medical History: Cancer, Eye Disorder, Hyperlipidemia, Prostate Disorder, Pulmonary Embolus (PE), Rheumatoid Arthritis (RA) Additional Past Medical History / Comment(s): 2015 R sided PE, bilateral chronic lung nodules, "leaky heart valve", BPH, skin cancer with removals, malignant colon polyps removed, headaches since CHI, bilateral cataracts. History of Any Multi-Drug Resistant Organisms: None Reported Past Surgical History: Appendectomy, Cholecystectomy, Heart Catheterization, Joint Replacement, Orthopedic Surgery Additional Past Surgical History / Comment(s): R knee arthroscopy, bilateral total knee arthroplasties, R shoulder rotator cuff repair, total L shoulder, bilateral elbow surgery, R hand partial amputation d/t injury, colonoscopy with 2 cancerous polypectomies, skin cancer removed, EGD Past Anesthesia/Blood Transfusion Reactions: No Reported Reaction Additional Past Anesthesia/Blood Transfusion Reaction / Comment(s): Pt has never recieved blood. Past Psychological History: No Psychological Hx Reported Additional Psychological History / Comment(s): Pt resides with his spouse. He is independent. Smoking Status: Never smoker Past Alcohol Use History: None Reported Additional Past Alcohol Use History / Comment(s): Pt started smoking in 1973, mostly cigars and quit in 1993. Past Drug Use History: None Reported - Past Family History Son(s) Family Medical History: Deep Vein Thrombosis (DVT) Father Family Medical History: Cancer Additional Family Medical History / Comment(s): Father of lymphoma at age 70 yrs. Mother Family Medical History: Cancer Additional Family Medical History / Comment(s): Mother had breast cancer. She at age 88yrs. Medications and Allergies Home Medications Medication Instructions Recorded Confirmed Type Atorvastatin [Lipitor] 20 mg PO HS 11/25/18 10/30/21 History Meloxicam [Mobic] 15 mg PO HS 01/21/20 10/30/21 History predniSONE 5 mg PO DAILY 01/21/20 10/30/21 History Furosemide [Lasix] 20 mg PO DAILY 03/14/20 10/30/21 History Albuterol Inhaler [Ventolin Hfa 1 puff INHALATION RT-Q4H PRN 05/01/21 10/30/21 History Inhaler] Calcium Carbonate/Vitamin D3 1 tab PO BID 05/01/21 10/30/21 History [Calcium 500-Vit D3 5 Mcg (200 Iu)] Cholecalciferol [Vitamin D3 (25 50 mcg PO DAILY 05/01/21 10/30/21 History Mcg = 1000 Iu)] Diclofenac Sodium [Voltaren 2 gm TOPICAL TID PRN 05/01/21 10/30/21 History Arthritis Pain 1% Gel] Fluticasone/Salmeterol [Advair 1 puff INHALATION RT-BID 05/01/21 10/30/21 His tory 250-50 Diskus] Omeprazole [PriLOSEC] 20 mg PO DAILY 05/01/21 10/30/21 History Potassium Chloride [Klor-Con 10 ER] 10 meq PO DAILY 05/01/21 10/30/21 History Tamsulosin [Flomax] 0.4 mg PO HS 05/01/21 10/30/21 History Leflunomide [Arava] 20 mg PO DAILY 10/30/21 10/30/21 History Allergies Allergy/AdvReac Type Severity Reaction Status Date / Time No Known Allergies Allergy Verified 10/30/21 09:42 Physical Exam Vitals: Vital Signs Temp Pulse Pulse Resp BP BP Pulse Ox 10/30/21 15:46 86 10/30/21 14:07 97.5 F L 83 16 140/80 96 10/30/21 13:12 97.5 F L 85 18 145/84 93 L 10/30/21 12:00 88 18 120/70 98 10/30/21 10:30 89 18 125/83 93 L 10/30/21 09:30 83 20 125/83 93 L 10/30/21 09:09 88 10/30/21 09:00 88 10/30/21 08:30 89 20 96 10/30/21 08:26 20 10/30/21 08:23 98 10/30/21 08:16 97 F L 97 22 154/87 97 Intake and Output 10/30/21 10/30/21 10/30/21 06:59 14:59 22:59 Intake Total 358 Balance 358 Intake: Oral 358 Other: # Voids 1 Weight 95.254 kg - Constitutional General appearance: average body habitus, cooperative, disheveled, mild distress - EENT Eyes: PERRLA ENT: normal oropharynx Ears: bilateral: normal - Neck Carotids: bilateral: upstroke normal - Respiratory Respiratory: bilateral: wheezing - Cardiovascular Rhythm: regular Heart sounds: normal: S1, S2 - Gastrointestinal General gastrointestinal: normal bowel sounds, soft - Integumentary Quarter size fungating mass in left supraclavicular area noted with erythematous lesion in the left upper extremity as well Integumentary: normal turgor - Neurologic Neurologic: CNII-XII intact - Musculoskeletal Musculoskeletal: gait normal, generalized weakness, strength equal bilaterally - Psychiatric Psychiatric: A&O x's 3, appropriate affect, intact judgment & insight Results - Laboratory Findings CBC and BMP: 10/30/21 08:37 10/30/21 08:37 PT/INR, D-dimer PT 9.9 sec (9.0-12.0) 10/30/21 08:37 INR 0.9 (<1.2) 10/30/21 08:37 D-Dimer 0.62 mg/L FEU (<0.60) H 10/30/21 08:37 Abnormal lab findings: Abnormal Labs 10/30/21 10/30/21 04 08:37 08:37 16:50 D-Dimer 0.62 H Carbon Dioxide 20 L Glucose 115 H Influenza Type A RNA Detected H - Diagnostic Findings Chest x-ray: report reviewed, image reviewed CT scan - chest: report reviewed, image reviewed (Finding as noted above) Assessment and Plan Assessment: Right-sided organized pleural effusion Left upper lobe nodular infiltrate Left supraclavicular fungating mass of the skin likely neoplasm Acute COPD exacerbation Acute hypoxic respiratory failure 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
[2021-10-30] MEDS: IPRATROPIUM-ALBUTEROL 3 ML NEB INHALATION SCH (20:32)
[2021-10-30] MEDS: SYMBICORT 80-4.5 MCG INHALER INHALATION SCH (20:33)
[2021-10-30] MEDS: MELOXICAM 7.5 MG TAB PO SCH (20:35)
[2021-10-30] MEDS: CALCIUM CARB-VIT D 500 MG-5 MCG TAB PO SCH (20:36)
[2021-10-30] MEDS: ATORVASTATIN 20 MG TAB PO SCH (20:36)
[2021-10-30] MEDS: TAMSULOSIN 0.4 MG CAP.ER.24H PO SCH (20:36)
--- NOTE | 2021-10-30 21:07 | US ---
EXAMINATION TYPE: US chest DATE OF EXAM: 10/30/2021 COMPARISON: US chest 2020 CLINICAL HISTORY: pleural effusion. Pleural effusion TECHNIQUE: Targeted ultrasound of the posterior lower bilateral hemithoraces EXAM MEASUREMENTS: Right Pleural Effusion pocket size: 3.5 cm Right skin surface to fluid distance: 2.9 cm Right side NOT marked for possible thoracentesis outside the dept. Left side NOT marked for possible thoracentesis outside the dept. Pulmonologists are able to review the images in the patient?s EMR. IMPRESSIONS: There is demonstration of mild bilateral pleural effusions.
[2021-10-30 23:49] LABS: LDL Cholesterol,Calculated 76.7 mg/dL (0.0-131.0)
[2021-10-31] MEDS: methylPREDNISolone SOD SUCCI 125 MG/2 ML VIAL IV SCH ×3 (06:04→18:21)
--- NOTE | 2021-10-31 07:58 | ECHOF ---
Referral Reason:Chest pain MEASUREMENTS -------- HEIGHT: 182.9 cm WEIGHT: 95.3 kg BP: RVIDd: 2.9 cm (< 3.3) IVSd: 1.3 cm (0.6 - 1.1) LVIDd: 4.4 cm (3.9 - 5.3) LVPWd: 1.5 cm (0.6 - 1.1) IVSs: 1.8 cm LVIDs: 3.3 cm LVPWs: 1.6 cm LA Diam: 3.9 cm (2.7 - 3.8) Ao Diam: 3.6 cm (2.0 - 3.7) AV Cusp: 1.4 cm (1.5 - 2.6) LA Diam: 3.5 cm (2.7 - 3.8) MV EXCURSION: 18.395 mm (> 18.000) MV EF SLOPE: 82 mm/s (70 - 150) EPSS: 0.5 cm MV E Dominic: 0.51 m/s MV DecT: 242 ms MV A Dominic: 1.11 m/s MV E/A Ratio: 0.46 RAP: 5.00 mmHg RVSP: 20.23 mmHg FINDINGS -------- Sinus rhythm. This was a technically adequate study. The left ventricular size is normal. There is mild concentric left ventricular hypertrophy. Overa ll left ventricular systolic function is low-normal with, an EF between 50 - 55 %. The right ventricle is normal in size. The left atrial size is normal. The right atrial size is normal. There is mild aortic valve sclerosis. There is mild aortic regurgitation. Mild mitral annular calcification present. Mild mitral regurgitation is present. Mild tricuspid regurgitation present. Right ventricular systolic pressure is normal at < 35 mmHg. There is no pulmonic regurgitation present. Echo free space represents a pericardial fat pad. CONCLUSIONS -------- 1. The left ventricular size is normal. 2. There is mild concentric left ventricular hypertrophy. 3. Overall left ventricular systolic function is low-normal with, an EF between 50 - 55 %. 4. The right ventricle is normal in size. 5. The left atrial size is normal. 6. The right atrial size is normal. 7. There is mild aortic valve sclerosis. 8. There is mild aortic regurgitation. 9. Mild mitral annular calcification present. 10. Mild mitral regurgitation is present. 11. Mild tricuspid regurgitation present. 12. Echo free space represents a pericardial fat pad. SENIOR MAINTENANCE TECHNICIAN: Kita Fritz RDCS
[2021-10-31] MEDS: SYMBICORT 80-4.5 MCG INHALER INHALATION SCH ×2 (08:41→20:55)
[2021-10-31] MEDS: IPRATROPIUM-ALBUTEROL 3 ML NEB INHALATION SCH ×4 (08:42→20:54)
[2021-10-31] MEDS: POTASSIUM CHLORIDE ER 10 MEQ TAB.ER.PRT PO SCH (08:59)
[2021-10-31] MEDS: FUROSEMIDE 20 MG TAB PO SCH (08:59)
[2021-10-31] MEDS: ENOXAPARIN 40 MG/0.4 ML SYRINGE SQ SCH (08:59)
[2021-10-31] MEDS: CALCIUM CARB-VIT D 500 MG-5 MCG TAB PO SCH ×2 (09:00→20:54)
[2021-10-31] MEDS: CHOLECALCIFEROL 25 MCG (1000 IU) TABLET PO SCH (09:00)
[2021-10-31] MEDS: PANTOPRAZOLE 40 MG TABLET PO SCH (09:00)
[2021-10-31] MEDS: LEFLUNOMIDE 20 MG TAB PO SCH (09:00)
[2021-10-31 09:07] LABS: HCT 46.3 % (39.6-50.0); MCH 25.8 pg (27.0-32.0); MCHC 30.2 g/dL (32.0-37.0); MCV 85.4 fL (80.0-97.0); Mean Platelet Volume 11.2 fL (9.5-12.2); NRBC Per 100 WBC 0 /100 WBCS (0.0-0.0); Platelet Count 236 X 10*3/uL (140-440); RBC 5.42 X 10*6/uL (4.40-5.60); RDW 14.6 % (11.5-14.5); WBC 3.25 X 10*3/uL (4.50-10.00)
[2021-10-31 09:15] LABS: African American GFR (CKD) 84.4 (60.0-200.0); Albumin 4.4 g/dL (3.8-4.9); Anion Gap 15.7 mmol/L (10.00-18.00); BUN/Creat Ratio 23.7 Ratio (12.00-20.00); Blood Urea Nitrogen 23.7 mg/dL (9.0-27.0); Calcium 9.4 mg/dL (8.7-10.3); Carbon Dioxide 17.3 mmol/L (20.0-27.5); Globulin 2.2 g/dL (1.6-3.3); Magnesium 2.2 mg/dL (1.5-2.4); Non-African American GFR(CKD) 72.8 (60.0-200.0); Potassium 4.1 mmol/L (3.5-5.5); Total Bilirubin 0.3 mg/dL (0.30-1.20); Total Protein 6.6 g/dL (6.2-8.2)
--- NOTE | 2021-10-31 11:02 | P.PN ---
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 Dyslipidemia Weight loss of 15-20 pounds with poor appetite 10/31/2021, patient seen eval reexamined during the rounds labs reviewed medications reviewed care plan discussed, patient remains short of breath, patient is currently on 2 L oxygen, further data obtained from the patient and he has been in good pulmonary state of health more than 6 months ago by slow gradual decline noted in the form of dyspnea on exertion, 6 months ago he was walking up to 4 miles but now cannot walk more than 10 steps without getting short of breath still have wheezing, patient is on DuoNeb Zithromax IV steroids, patient is on DVT prophylaxis and peptic ulcer disease prophylaxis as well. Patient is complaining of insomnia would like to try a sleeping aid will initiate on melatonin. Review of blood culture revealed gram-positive cocci in clusters we'll start patient on vancomycin. CBC reviewed white cell count was 3.25,a influenza is positive we will initiate Tamiflu patient will benefit from consultation from infectious disease as well. 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 Mendenhall or for abnormal x-ray and CAT scan now wants to switch the Dr. His current symptoms started about 4-5 days ago with increased shortness of breath this dyspnea on exertion he has mostly dry nonproductive cough which has been consistent also started around the same time. He does have a prior history of pneumonia and pleural effusion, patient had a computed tomography scan chest performed today revealed organized small pleural effusion on the right base with nodular opacities scattered in the left upper lobe area patient has been evaluated in the past by pulmonary and recommended not to do the biopsy and not to do thoracentesis due to high risk of pneumothorax. He said he had a PET scan several years ago which was nondiagnostic. He does complain of constitutional symptoms with weight loss about 15-20 pounds with no desire to eat he has been evaluated by a fungating mass in the left supraclavicular area likely skin cancer with a biopsy scheduled for at [facility] patient is also scheduled one-month later at pulmonary clinic. On specific questioning he denies any fevers chills denies any hemoptysis denies any chest pain or radiation of pain no night sweats fever or chills denies any bowel or bladder related problem. Currently patient is being treated with bronchodilators and IV steroids and broad-spectrum antibiotics Objective - Vital Signs Vital signs: Vital Signs Temp 97.6 F 10/31/21 07:00 Pulse 86 10/31/21 08:50 Resp 14 10/31/21 07:00 BP 143/82 10/31/21 07:00 Pulse Ox 94 L 10/31/21 07:00 Intake & Output 10/30/21 10/31/21 10/31/21 18:59 06:59 18:59 Intake Total 358 118 Output Total 175 Balance 358 -57 Weight 95.254 kg Intake: Oral 358 118 Output: Urine 175 Other: Voiding Method Toilet Urinal # Voids 1 2 - Exam - Constitutional General appearance: average body habitus, cooperative, disheveled, mild distress - EENT Eyes: PERRLA ENT: normal oropharynx Ears: bilateral: normal - Neck Carotids: bilateral: upstroke normal - Respiratory Respiratory: bilateral: wheezing - Cardiovascular Rhythm: regular Heart sounds: normal: S1, S2 - Gastrointestinal General gastrointestinal: normal bowel sounds, soft - Integumentary Quarter size fungating mass in left supraclavicular area noted with erythematous lesion in the left upper extremity as well Integumentary: normal turgor - Neurologic Neurologic: CNII-XII intact - Musculoskeletal Musculoskeletal: gait normal, generalized weakness, strength equal bilaterally - Psychiatric Psychiatric: A&O x's 3, appropriate affect, intact judgment & insight - Labs CBC & Chem 7: 10/31/21 05:37 10/31/21 05:37 Labs: Abnormal Lab Results - Last 24 Hours (Table) 10/30/21 10/30/21 10/30/21 Range/Units 08:37 16:50 17:43 WBC (4.50-10.00) X 10*3/uL MCH (27.0-32.0) pg MCHC (32.0-37.0) g/dL RDW (11.5-14.5) % D-Dimer 0.62 H (<0.60) mg/L FEU Carbon Dioxide (20.0-27.5) mmol/L BUN/Creatinine Ratio (12.00-20.00) Ratio Glucose (70-110) mg/dL Hemoglobin A1c 6.2 H (0.0-6.0) % Alkaline Phosphatase (41-126) U/L Triglycerides (0.00-149.00) mg/dL HDL Cholesterol (40.00-60.00) mg/dL Influenza Type A RNA Detected H (Not Detectd) 10/30/21 10/31/21 10/31/21 Range/Units 17:43 05:37 05:37 WBC 3.25 L (4.50-10.00) X 10*3/uL MCH 25.8 L (27.0-32.0) pg MCHC 30.2 L (32.0-37.0) g/dL RDW 14.6 H (11.5-14.5) % D-Dimer (<0.60) mg/L FEU Carbon Dioxide 17.3 L (20.0-27.5) mmol/L BUN/Creatinine Ratio 23.70 H (12.00-20.00) Ratio Glucose 183 H (70-110) mg/dL Hemoglobin A1c (0.0-6.0) % Alkaline Phosphatase 134 H (41-126) U/L Triglycerides 194.00 H (0.00-149.00) mg/dL HDL Cholesterol 27.50 L (40.00-60.00) mg/dL Influenza Type A RNA (Not Detectd) Microbiology - Last 24 Hours (Table) 10/30/21 08:37 Blood Culture Gram Stain - Preliminary Blood 10/30/21 08:37 Blood Culture - Final Blood Assessment and Plan Assessment: Influenza A pneumonia Gram-positive bacteremia Right-sided organized pleural effusion Left upper lobe nodular infiltrate Left supraclavicular fungating mass of the skin likely neoplasm Acute COPD exacerbation Acute hypoxic respiratory failure 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
[2021-10-31] MEDS ORDERED: VANCOMYCIN IV PER PHARMACY 1 EACH MISC MISCELLANE PRN (11:06)
[2021-10-31 11:12] LABS: Basophils # (A) 0 X 10*3/uL (0.00-0.10); Basophils % (A) 0 %; Eosinophils # (A) 0 X 10*3/uL (0.04-0.35); Eosinophils % (A) 0 %; Immature Grans, Automated 0.3 %; Lymphocytes % (A) 46.2 %; Monocytes # (A) 0.07 X 10*3/uL (0.20-1.00); Monocytes % (A) 2.2 %; Neutrophils # (A) 1.67 X 10*3/uL (1.80-7.70); Neutrophils % (A) 51.3 %
[2021-10-31 11:13] LABS: RBC Morphology NORMAL
[2021-10-31] MEDS: VANCOMYCIN 1,500 MG in SODIUM CHLORIDE 0.9% 250 ML IVPB SCH (12:31)
[2021-10-31] MEDS: OSELTAMIVIR 75 MG CAP PO SCH ×2 (12:33→20:54)
--- NOTE | 2021-10-31 16:03 | P.PN ---
Subjective Progress Note Date: 10/31/21 Patient still short of breath, especially during ambulation. He tested positive for the flu, currently on empiric antibiotics, as well as Tamiflu. Gen: awake, alert HEENT: normocephalic, atraumatic, good hearing acuity, moist mucous membranes Resp: good air exchange, breathing comfortably with no accessory muscle use CVS: good distal perfusion x 4, GI: soft, NTTP, ND : no SPT, no CVAT, plasencia catheter not present MSK: no pitting edema, no clubbing Neuro: non-focal, moving all extremities Psych: cooperative, euthymic mood Assessment/plan: #Acute hypoxia respiratory failure secondary to COPD exacerbation #Viral pneumonia secondary to influenza -Patient is wheezing on examination -Resume IV Solu-Medrol -Bronchodilator treatment -Azithromycin 500 mg by mouth daily -Tamiflu for 5 days total -ID is following #Chest pain -EKG showed normal sinus rhythm with nonspecific ST segment or T-wave changes -Patient has history of right PE 2 years ago and d-dimer is elevated we'll order CT of the chest -2-D echo ordered -Cardiology consulted -10 troponin #History of valvular heart disease -Echo ordered. #History of rheumatoid arthritis with lung nodules -15 mg prednisone daily -We'll resume oral prednisone on discharge Chronic condition: Dyslipidemia History of skin cancer status post removal. History of malignant colon polyp status post removal. DVT prophylaxis with Lovenox Full code Objective - Vital Signs Vital signs: Vital Signs Temp 97.5 F L 10/31/21 13:50 Pulse 88 10/31/21 15:07 Resp 16 10/31/21 13:50 BP 147/77 10/31/21 13:50 Pulse Ox 96 10/31/21 14:22 Intake & Output 10/30/21 10/31/21 10/31/21 18:59 06:59 18:59 Intake Total 358 358 Output Total 350 Balance 358 8 Weight 95.254 kg Intake: Oral 358 358 Output: Urine 350 Other: Voiding Method Toilet Urinal # Voids 1 2 2 - Labs CBC & Chem 7: 10/31/21 05:37 10/31/21 05:37 Labs: Abnormal Lab Results - Last 24 Hours (Table) 10/30/21 10/30/21 10/30/21 Range/Units 16:50 17:43 17:43 WBC (4.50-10.00) X 10*3/uL MCH (27.0-32.0) pg MCHC (32.0-37.0) g/dL RDW (11.5-14.5) % Neutrophils # (1.80-7.70) X 10*3/uL Monocytes # (0.20-1.00) X 10*3/uL Eosinophils # (0.04-0.35) X 10*3/uL Carbon Dioxide (20.0-27.5) mmol/L BUN/Creatinine Ratio (12.00-20.00) Ratio Glucose (70-110) mg/dL Hemoglobin A1c 6.2 H (0.0-6.0) % Alkaline Phosphatase (41-126) U/L Triglycerides 194.00 H (0.00-149.00) mg/dL HDL Cholesterol 27.50 L (40.00-60.00) mg/dL Influenza Type A RNA Detected H (Not Detectd) 10/31/21 10/31/21 Range/Units 05:37 05:37 WBC 3.25 L (4.50-10.00) X 10*3/uL MCH 25.8 L (27.0-32.0) pg MCHC 30.2 L (32.0-37.0) g/dL RDW 14.6 H (11.5-14.5) % Neutrophils # 1.67 L (1.80-7.70) X 10*3/uL Monocytes # 0.07 L (0.20-1.00) X 10*3/uL Eosinophils # 0 L (0.04-0.35) X 10*3/uL Carbon Dioxide 17.3 L (20.0-27.5) mmol/L BUN/Creatinine Ratio 23.70 H (12.00-20.00) Ratio Glucose 183 H (70-110) mg/dL Hemoglobin A1c (0.0-6.0) % Alkaline Phosphatase 134 H (41-126) U/L Triglycerides (0.00-149.00) mg/dL HDL Cholesterol (40.00-60.00) mg/dL Influenza Type A RNA (Not Detectd) Microbiology - Last 24 Hours (Table) 10/30/21 08:37 Blood Culture Gram Stain - Preliminary Blood Blood Culture - Preliminary Coagulase Negative Staph 10/30/21 08:37 Blood Culture - Preliminary Blood No Growth after 24 hours 10/30/21 08:37 Blood Culture - Final Blood
[2021-10-31] MEDS: AZITHROMYCIN 500 MG TAB PO SCH (16:08)
[2021-10-31] MEDS: MELOXICAM 7.5 MG TAB PO SCH (20:54)
[2021-10-31] MEDS: TAMSULOSIN 0.4 MG CAP.ER.24H PO SCH (20:54)
[2021-10-31] MEDS: ATORVASTATIN 20 MG TAB PO SCH (20:54)
[2021-10-31] MEDS: MELATONIN 5 MG TABLET PO PRN (20:55)
--- NOTE | 2021-11-01 | P.CONS ---
History of Present Illness - Reason for Consult Consult date: 10/31/21 Acute influenza A and effusion Requesting physician: Moncho Lanza - Chief Complaint Shortness of breath few days - History of Present Illness Patient is a 76-year-old male with a past medical history significant for COPD and also history of PE, rheumatoid arthritis presenting to the hospital for evaluation of increasing shortness of breath that has been getting worse for the last 5 days, patient been complaining of increasing shortness of breath on minimal exertion and even at rest patient also have a cough which is mild to moderate intensity but not bringing up any sputum patient denies having any URI symptoms patient denies having any fever or any chills, denies having any chest pain no nausea no vomiting no abdominal pain no diarrhea patient on presentation to the hospital was afebrile and no fever has been recorded subsequently patient did have a normal white count creatinine was normal liver enzymes are normal patient did have positive influenza a RNA Covid testing was negative patient did have a chest x-ray small right-sided pleural effusion with retrocardiac density which is improved since last study patient did have blood cultures drawn which came back positive with gram-positive cocci that has prompted this infectious disease consultation. Review of Systems Positive point has been mentioned in the HPI rest of the systems are negative Past Medical History Past Medical History: Cancer, Eye Disorder, Hyperlipidemia, Prostate Disorder, Pulmonary Embolus (PE), Rheumatoid Arthritis (RA) Additional Past Medical History / Comment(s): 2015 R sided PE, bilateral chronic lung nodules, "leaky heart valve", BPH, skin cancer with removals, malignant colon polyps removed, headaches since CHI, bilateral cataracts. History of Any Multi-Drug Resistant Organisms: None Reported Past Surgical History: Appendectomy, Cholecystectomy, Heart Catheterization, Joint Replacement, Orthopedic Surgery Additional Past Surgical History / Comment(s): R knee arthroscopy, bilateral total knee arthroplasties, R shoulder rotator cuff repair, total L shoulder, bilateral elbow surgery, R hand partial amputation d/t injury, colonoscopy with 2 cancerous polypectomies, skin cancer removed, EGD Past Anesthesia/Blood Transfusion Reactions: No Reported Reaction Additional Past Anesthesia/Blood Transfusion Reaction / Comm: Pt has never recieved blood. Past Psychological History: No Psychological Hx Reported Additional Psychological History / Comment(s): Pt resides with his spouse. He is independent. Smoking Status: Never smoker Past Alcohol Use History: None Reported Additional Past Alcohol Use History / Comment(s): Pt started smoking in 1973, mostly cigars and quit in 1993. Past Drug Use History: None Reported - Past Family History Son(s) Family Medical History: Deep Vein Thrombosis (DVT) Father Family Medical History: Cancer Additional Family Medical History / Comment(s): Father of lymphoma at age 70 yrs. Mother Family Medical History: Cancer Additional Family Medical History / Comment(s): Mother had breast cancer. She at age 88yrs. Medications and Allergies Home Medications Medication Instructions Recorded Confirmed Type Atorvastatin [Lipitor] 20 mg PO HS 11/25/18 10/30/21 History Meloxicam [Mobic] 15 mg PO HS 01/21/20 10/30/21 History predniSONE 5 mg PO DAILY 01/21/20 10/30/21 History Furosemide [Lasix] 20 mg PO DAILY 03/14/20 10/30/21 History Albuterol Inhaler [Ventolin Hfa 1 puff INHALATION RT-Q4H PRN 05/01/21 10/30/21 History Inhaler] Calcium Carbonate/Vitamin D3 1 tab PO BID 05/01/21 10/30/21 History [Calcium 500-Vit D3 5 Mcg (200 Iu)] Cholecalciferol [Vitamin D3 (25 50 mcg PO DAILY 05/01/21 10/30/21 History Mcg = 1000 Iu)] Diclofenac Sodium [Voltaren 2 gm TOPICAL TID PRN 05/01/21 10/30/21 History Arthritis Pain 1% Gel] Fluticasone/Salmeterol [Advair 1 puff INHALATION RT-BID 05/01/21 10/30/21 History 250-50 Diskus] Omeprazole [PriLOSEC] 20 mg PO DAILY 05/01/21 10/30/21 History Potassium Chloride [Klor-Con 10 ER] 10 meq PO DAILY 05/01/21 10/30/21 History Tamsulosin [Flomax] 0.4 mg PO HS 05/01/21 10/30/21 History Leflunomide [Arava] 20 mg PO DAILY 10/30/21 10/30/21 History Allergies Allergy/AdvReac Type Severity Reaction Status Date / Time No Known Allergies Allergy Verified 10/30/21 09:42 Physical Exam Vitals: Vital Signs Temp Pulse Pulse Resp BP Pulse Ox 10/31/21 08:50 86 04/12/22 08:42 86 10/31/21 07:00 97.6 F 85 14 143/82 94 L 10/31/21 02:38 97.5 F L 92 16 139/79 97 10/30/21 20:43 84 10/30/21 20:33 82 10/30/21 20:14 98.0 F 97 16 132/81 94 L 10/30/21 15:46 86 10/30/21 14:07 97.5 F L 83 16 140/80 96 10/30/21 13:12 97.5 F L 85 18 145/84 93 L Intake and Output 10/30/21 10/31/21 10/31/21 22:59 06:59 14:59 Intake Total 358 118 Output Total 350 Balance 358 -232 Intake: Oral 358 118 Output: Urine 350 Other: Voiding Method Toilet Toilet Urinal # Voids 2 2 GENERAL DESCRIPTION: Elderly male lying in bed, no distress. No tachypnea or accessory muscle of respiration use. HEENT: Shows Pallor , no scleral icterus. Oral mucous membrane is dry. No pharyngeal erythema or thrush NECK: Trachea central, no thyromegaly. LUNGS: Unlabored breathing. Decreased breath sounds At the Base. No wheeze or crackle. HEART: S1, S2, regular rate and rhythm. No loud murmur ABDOMEN: Soft, no tenderness , guarding or rigidity, no organomegaly EXTREMITIES: No edema of feet. SKIN: No rash, no masses palpable. NEUROLOGICAL: The patient is awake, alert, oriented x3, mood and affect normal. Results CBC & Chem 7: 10/31/21 05:37 10/31/21 05:37 Labs: Abnormal Lab Results - Last 24 Hours (Table) 10/30/21 10/30/21 10/30/21 Range/Units 16:50 17:43 17:43 WBC (4.50-10.00) X 10*3/uL MCH (27.0-32.0) pg MCHC (32.0-37.0) g/dL RDW (11.5-14.5) % Neutrophils # (1.80-7.70) X 10*3/uL Monocytes # (0.20-1.00) X 10*3/uL Eosinophils # (0.04-0.35) X 10*3/uL Carbon Dioxide (20.0-27.5) mmol/L BUN/Creatinine Ratio (12.00-20.00) Ratio Glucose (70-110) mg/dL Hemoglobin A1c 6.2 H (0.0-6.0) % Alkaline Phosphatase (41-126) U/L Triglycerides 194.00 H (0.00-149.00) mg/dL HDL Cholesterol 27.50 L (40.00-60.00) mg/dL Influenza Type A RNA Detected H (Not Detectd) 10/31/21 10/31/21 Range/Units 05:37 05:37 WBC 3.25 L (4.50-10.00) X 10*3/uL MCH 25.8 L (27.0-32.0) pg MCHC 30.2 L (32.0-37.0) g/dL RDW 14.6 H (11.5-14.5) % Neutrophils # 1.67 L (1.80-7.70) X 10*3/uL Monocytes # 0.07 L (0.20-1.00) X 10*3/uL Eosinophils # 0 L (0.04-0.35) X 10*3/uL Carbon Dioxide 17.3 L (20.0-27.5) mmol/L BUN/Creatinine Ratio 23.70 H (12.00-20.00) Ratio Glucose 183 H (70-110) mg/dL Hemoglobin A1c (0.0-6.0) % Alkaline Phosphatase 134 H (41-126) U/L Triglycerides (0.00-149.00) mg/dL HDL Cholesterol (40.00-60.00) mg/dL Influenza Type A RNA (Not Detectd) Microbiology - Last 24 Hours (Table) 10/30/21 08:37 Blood Culture Gram Stain - Preliminary Blood 10/30/21 08:37 Blood Culture - Preliminary Blood No Growth after 24 hours 10/30/21 08:37 Blood Culture - Final Blood Assessment and Plan (1) Positive blood culture Current Visit: Yes Status: Acute Code(s): R78.81 - BACTEREMIA SNOMED Code(s): 277920019 (2) Pneumonia Current Visit: No Status: Acute Code(s): J18.9 - PNEUMONIA, UNSPECIFIED ORGANISM SNOMED Code(s): 716245813 Plan: 1patient presented to hospital with increasing shortness of breath is likely multifactorial possible COPD exacerbation plus minus component of fluid overload and did have a pleural effusion underlying compressive atelectasis and less likely pneumonia. 2positive acute influenza A could be contributing to some of his symptoms. 3positive blood culture with gram-positive cocci we will wait for the final ID if finalized as coagulase-negative staph will be disregarded as skin contamination however if finalizes staph aureus will need further work-up. 4continue with the Tamiflu vancomycin and cefepime while waiting for the work- up to finalize. 5we will try to obtain a sputum for Gram stain and culture check a CRP and procalcitonin We will follow on clinical condition and cultures to further adjust medication if needed Thank you for this consultation we will follow the patient along with you Time with Patient: Greater than 30
[2021-11-01] MEDS: methylPREDNISolone SOD SUCCI 125 MG/2 ML VIAL IV SCH ×5 (00:34→23:49)
[2021-11-01] MEDS: VANCOMYCIN 1,500 MG in SODIUM CHLORIDE 0.9% 250 ML IVPB SCH (00:34)
[2021-11-01] MEDS: IPRATROPIUM-ALBUTEROL 3 ML NEB INHALATION SCH ×4 (07:16→20:37)
[2021-11-01] MEDS: SYMBICORT 80-4.5 MCG INHALER INHALATION SCH ×2 (07:16→20:37)
[2021-11-01] MEDS: CHOLECALCIFEROL 25 MCG (1000 IU) TABLET PO SCH (08:31)
[2021-11-01] MEDS: ENOXAPARIN 40 MG/0.4 ML SYRINGE SQ SCH (08:31)
[2021-11-01] MEDS: CALCIUM CARB-VIT D 500 MG-5 MCG TAB PO SCH ×2 (08:31→20:13)
[2021-11-01] MEDS: LEFLUNOMIDE 20 MG TAB PO SCH (08:31)
[2021-11-01] MEDS: PANTOPRAZOLE 40 MG TABLET PO SCH (08:31)
[2021-11-01] MEDS: FUROSEMIDE 20 MG TAB PO SCH (08:31)
[2021-11-01] MEDS: POTASSIUM CHLORIDE ER 10 MEQ TAB.ER.PRT PO SCH (08:31)
[2021-11-01] MEDS: OSELTAMIVIR 75 MG CAP PO SCH ×2 (08:32→20:14)
--- NOTE | 2021-11-01 13:05 | CDI ---
Documentation Clarification Form Date: 11/01/2021 12:38:31 PM From: Kathy Kirkland RN CCDS Admit Date: 10/30/2021 04:57:00 PM Patient Name: Ginger Quintanilla Visit Number: [id number] Discharge Date: ATTENTION: The Clinical Documentation Specialists (CDI) and [facility] Coding Staff appreciate your assistance in clarifying documentation. Please respond to the clarification below the line at the bottom and electronically sign. The CDI & [facility] Coding staff will review the response and follow-up if needed. Please note: Queries are made part of the Legal Health Record. If you have any questions, please contact the author of this message via ITS. Dr. Krista Curtis There is documentation of Gram positive bacteremia, 10/31, Pulmonary progress note. Bacteremia is considered a lab finding. Additional clarification regarding bacteremia is requested. Patient history/risk factors: 76-year-old male presents to the ED with difficulty breathing for the last five days with a nonproductive cough. Medical History: Smoker quit in 1993; Cancer: skin and malignant colon polyp; Chronic lung nodules and PE. Clinical Indicators: VSS: 10/30 B/P 154/87; HR 97; RR 22; SpO2 97% room air. WBC: 10/30 4.6 Blood Culture: Coagulase Negative Staph Gram positive Cocci Consult: ID pending. Treatment: 10/30 Zithromax 500mg PO Daily x 3 doses; 10/31 Tamiflu 75mg PO Q12HR x 10 doses; 10/31 to current Vancomycin 1,500mg IVPB Q12HR. Please provide additional clarification regarding the etiology/cause and/or clinical significance of the bacteremia: [ ] Bacteremia is related to sepsis [ ] Bacteremia is due to viral sepsis and Influenza A [ ] Bacteremia is due to infectious process, please specify: [ x ] Bacteremia is not clinically significant - contamination [ ] Other, please specify [ ] Unable to determine (Template Last Revised: September 2020) MTDD
--- NOTE | 2021-11-01 13:51 | P.PN ---
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 Dyslipidemia Weight loss of 15-20 pounds with poor appetite 11/01/2021, patient seen eval reexamined care plan discussed with the and patient at length, sitting upright in the chair without oxygen, he is much better able to get up and move around to the washroom [id number], dyspnea on exertion improved wheezing is improved, blood cultures no coming as coag- negative staph likely contaminated ID evaluated the patient patient remains on Tamiflu for influenza A pneumonia and also getting bronchodilators and IV steroids deep breathing sense incentive spirometry 10/31/2021, patient seen eval reexamined during the rounds labs reviewed medications reviewed care plan discussed, patient remains short of breath, patient is currently on 2 L oxygen, further data obtained from the patient and he has been in good pulmonary state of health more than 6 months ago by slow gradual decline noted in the form of dyspnea on exertion, 6 months ago he was walking up to 4 miles but now cannot walk more than 10 steps without getting short of breath still have wheezing, patient is on DuoNeb Zithromax IV steroids, patient is on DVT prophylaxis and peptic ulcer disease prophylaxis as well. Patient is complaining of insomnia would like to try a sleeping aid will initiate on melatonin. Review of blood culture revealed gram-positive cocci in clusters we'll start patient on vancomycin. CBC reviewed white cell count was 3.25,a influenza is positive we will initiate Tamiflu patient will benefit from consultation from infectious disease as well. 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 Za archer for abnormal x-ray and CAT scan now wants to switch the Dr. His current symptoms started about 4-5 days ago with increased shortness of breath this dyspnea on exertion he has mostly dry nonproductive cough which has been consistent also started around the same time. He does have a prior history of pneumonia and pleural effusion, patient had a computed tomography scan chest performed today revealed organized small pleural effusion on the right base with nodular opacities scattered in the left upper lobe area patient has been evaluated in the past by pulmonary and recommended not to do the biopsy and not to do thoracentesis due to high risk of pneumothorax. He said he had a PET scan several years ago which was nondiagnostic. He does complain of constitutional symptoms with weight loss about 15-20 pounds with no desire to eat he has been evaluated by a fungating mass in the left supraclavicular area likely skin cancer with a biopsy scheduled for at [facility] patient is also scheduled one-month later at pulmonary clinic. On specific questioning he denie s any fevers chills denies any hemoptysis denies any chest pain or radiation of pain no night sweats fever or chills denies any bowel or bladder related problem. Currently patient is being treated with bronchodilators and IV steroids and broad-spectrum antibiotics Objective - Vital Signs Vital signs: Vital Signs Temp 97.4 F L 11/01/21 07:00 Pulse 88 11/01/21 11:35 Resp 18 11/01/21 07:00 BP 134/71 11/01/21 07:00 Pulse Ox 95 11/01/21 07:17 Intake & Output 10/31/21 11/01/21 11/01/21 18:59 06:59 18:59 Intake Total 598 118 Output Total 350 Balance 248 118 Intake: Oral 598 118 Output: Urine 350 Other: Voiding Method Toilet Urinal # Voids 2 1 - Exam - Constitutional General appearance: average body habitus, cooperative, disheveled, mild distress - EENT Eyes: PERRLA ENT: normal oropharynx Ears: bilateral: normal - Neck Carotids: bilateral: upstroke normal - Respiratory Respiratory: bilateral: wheezing - Cardiovascular Rhythm: regular Heart sounds: normal: S1, S2 - Gastrointestinal General gastrointestinal: normal bowel sounds, soft - Integumentary Quarter size fungating mass in left supraclavicular area noted with erythematous lesion in the left upper extremity as well Integumentary: normal turgor - Neurologic Neurologic: CNII-XII intact - Musculoskeletal Musculoskeletal: gait normal, generalized weakness, strength equal bilaterally - Psychiatric Psychiatric: A&O x's 3, appropriate affect, intact judgment & insight - Labs CBC & Chem 7: 10/31/21 05:37 10/31/21 05:37 Labs: Microbiology - Last 24 Hours (Table) 10/30/21 08:37 Blood Culture - Preliminary Blood No Growth after 48 hours 10/30/21 08:37 Blood Culture Gram Stain - Final Blood Blood Culture - Final Coagulase Negative Staph Assessment and Plan Assessment: Influenza A pneumonia Gram-positive bacteremia coag-negative staph likely contaminant, ID have evaluated the patient Right-sided organized pleural effusion Left upper lobe nodular infiltrate Left supraclavicular fungating mass of the skin likely neoplasm Acute COPD exacerbation Acute hypoxic respiratory failure 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
[2021-11-01] MEDS: AZITHROMYCIN 500 MG TAB PO SCH (16:04)
[2021-11-01 19:13] VITALS: RESP 18
[2021-11-01] MEDS: MELATONIN 5 MG TABLET PO PRN (20:13)
[2021-11-01] MEDS: MELOXICAM 7.5 MG TAB PO SCH (20:14)
[2021-11-01] MEDS: TAMSULOSIN 0.4 MG CAP.ER.24H PO SCH (20:14)
[2021-11-01] MEDS: ATORVASTATIN 20 MG TAB PO SCH (20:14)
--- NOTE | 2021-11-01 23:46 | P.PN ---
Subjective Progress Note Date: 11/01/21 Principal diagnosis: Acute influenza and positive blood culture Patient is a 76-year-old male with a past medical history significant for COPD presenting to the hospital with increasing shortness of breath in this patient evidence of bilateral effusion he also have a positive acute influenza A and a positive blood culture was finalized as staph epi. On today's evaluation that is 11/01/2021, the patient denies having any fever or any chills, the patient is very slightly comfortably, denies having any chest pain no worsening cough or sputum production no nausea no vomiting no abdominal pain no diarrhea Objective - Vital Signs Vital signs: Vital Signs Temp 97.4 F L 11/01/21 07:00 Pulse 72 11/01/21 11:22 Resp 18 11/01/21 07:00 BP 134/71 11/01/21 07:00 Pulse Ox 95 11/01/21 07:17 Intake & Output 10/31/21 11/01/21 11/01/21 18:59 06:59 18:59 Intake Total 598 Output Total 350 Balance 248 Intake: Oral 598 Output: Urine 350 Other: Voiding Method Toilet Urinal # Voids 2 1 - Exam GENERAL DESCRIPTION: An elderly male lying in bed in no distress RESPIRATORY SYSTEM: Unlabored breathing , decreased breath sounds at bases HEART: S1 S2 regular rate and rhythm , ABDOMEN: Soft , no tenderness EXTREMITIES: No edema feet - Labs CBC & Chem 7: 10/31/21 05:37 10/31/21 05:37 Labs: Microbiology - Last 24 Hours (Table) 10/30/21 08:37 Blood Culture - Preliminary Blood No Growth after 48 hours 10/30/21 08:37 Blood Culture Gram Stain - Final Blood Blood Culture - Final Coagulase Negative Staph Assessment and Plan (1) Positive blood culture Current Visit: Yes Status: Acute Code(s): R78.81 - BACTEREMIA SNOMED Code(s): 000443057 (2) Pneumonia Current Visit: No Status: Acute Code(s): J18.9 - PNEUMONIA, UNSPECIFIED ORGANISM SNOMED Code(s): 648835875 Plan: 1patient presented to hospital with increasing shortness of breath is likely multifactorial possible COPD exacerbation plus minus component of fluid overload and did have a pleural effusion underlying compressive atelectasis and less likely pneumonia and symptoms could be related to acute influenza for the patient will continue with the Tamiflu, with a normal CRP and a pro-calcitonin cefepime can be discontinued 2 positive blood culture with gram-positive cocci has been finalized as coagulase negative staph likely skin contamination vancomycin has been discontinued Time with Patient: Less than 30
[2021-11-02] MEDS: methylPREDNISolone SOD SUCCI 125 MG/2 ML VIAL IV SCH ×2 (05:57→12:00)
[2021-11-02] MEDS: PANTOPRAZOLE 40 MG TABLET PO SCH (08:00)
[2021-11-02] MEDS: FUROSEMIDE 20 MG TAB PO SCH (08:00)
[2021-11-02] MEDS: ENOXAPARIN 40 MG/0.4 ML SYRINGE SQ SCH (08:01)
[2021-11-02] MEDS: OSELTAMIVIR 75 MG CAP PO SCH (08:01)
[2021-11-02] MEDS: IPRATROPIUM-ALBUTEROL 3 ML NEB INHALATION SCH ×2 (08:01→11:39)
[2021-11-02] MEDS: CHOLECALCIFEROL 25 MCG (1000 IU) TABLET PO SCH (08:01)
[2021-11-02] MEDS: POTASSIUM CHLORIDE ER 10 MEQ TAB.ER.PRT PO SCH (08:01)
[2021-11-02] MEDS: LEFLUNOMIDE 20 MG TAB PO SCH (08:01)
[2021-11-02] MEDS: CALCIUM CARB-VIT D 500 MG-5 MCG TAB PO SCH (08:01)
[2021-11-02] MEDS: SYMBICORT 80-4.5 MCG INHALER INHALATION SCH (08:02)
[2021-11-02] MEDS ORDERED: VANCOMYCIN TROUGH DUE 1 EACH MISC MISCELLANE ONE (11:00)
[2021-11-02 14:19] VITALS: BP 152/82; PULSE 106; TEMP 98.1
[2021-11-02] MEDS ORDERED: predniSONE 20 MG TAB PO STA (15:02)
--- NOTE | 2021-11-03 17:38 | P.PN ---
Subjective Progress Note Date: 11/02/21 Principal diagnosis: Acute influenza and positive blood culture Patient is a 76-year-old male with a past medical history significant for COPD presenting to the hospital with increasing shortness of breath in this patient evidence of bilateral effusion he also have a positive acute influenza A and a positive blood culture was finalized as staph epi. On today's evaluation that is 11/02/2021, the patient remains to be afebrile, the patient is breathing comfortably on room air, the patient denies having any chest pain no worsening cough or sputum production no nausea no vomiting no abdominal pain no diarrhea Objective - Vital Signs Vital signs: Vital Signs Temp 97.7 F 11/02/21 07:06 Pulse 100 11/02/21 11:49 Resp 18 11/02/21 07:06 BP 153/82 11/02/21 07:06 Pulse Ox 96 11/02/21 08:07 Intake & Output 11/01/21 11/02/21 11/02/21 18:59 06:59 18:59 Intake Total 236 Balance 236 Intake: Oral 236 Other: Voiding Method Toilet Toilet Urinal Urinal # Voids 1 2 - Exam GENERAL DESCRIPTION: An elderly male lying in bed in no distress RESPIRATORY SYSTEM: Unlabored breathing , decreased breath sounds at bases HEART: S1 S2 regular rate and rhythm , ABDOMEN: Soft , no tenderness EXTREMITIES: No edema feet - Labs CBC & Chem 7: 10/31/21 05:37 10/31/21 05:37 Labs: Microbiology - Last 24 Hours (Table) 10/30/21 08:37 Blood Culture - Preliminary Blood No Growth after 72 hours 11/01/21 05:38 Blood Culture - Preliminary Blood No Growth after 24 hours 10/30/21 08:37 Blood Culture Gram Stain - Final Blood Blood Culture - Final Coagulase Negative Staph Assessment and Plan (1) Positive blood culture Status: Acute Code(s): R78.81 - BACTEREMIA SNOMED Code(s): 548220321 (2) Pneumonia Status: Acute Code(s): J18.9 - PNEUMONIA, UNSPECIFIED ORGANISM SNOMED Code(s): 447374634 Plan: 1patient presented to hospital with increasing shortness of breath is likely multifactorial possible COPD exacerbation plus minus component of fluid overload and did have a pleural effusion underlying compressive atelectasis and less likely pneumonia and symptoms could be related to acute influenza for the patient to finish a 5 day course of Tamiflu, with a normal CRP and a pro- calcitonin cefepime can be discontinued and no need for antibiotic on discharge 2 positive blood culture with gram-positive cocci has been finalized as coagulase negative staph likely skin contamination no need for vancomycin Time with Patient: Less than 30
== END 2021-11-02 15:20 | disposition home or self-care (01) | DRG 193 ==
LOC: EC 08:12 → 6NMEDSUR 12:27 → OBSVTOIN 16:57
PROVIDERS: ADMIT Hospitalist; ATTEND Hospitalist
DX: J10.08 Influenza due to other identified influenza virus with other specified pneumonia (principal); J96.01 Acute respiratory failure with hypoxia; J90 Pleural effusion, not elsewhere classified; J12.9 Viral pneumonia, unspecified; G47.00 Insomnia, unspecified; J44.0 Chronic obstructive pulmonary disease with (acute) lower respiratory infection; J44.1 Chronic obstructive pulmonary disease with (acute) exacerbation; C44.90 Unspecified malignant neoplasm of skin, unspecified; E78.5 Hyperlipidemia, unspecified; M05.10 Rheumatoid lung disease with rheumatoid arthritis of unspecified site; N40.0 Benign prostatic hyperplasia without lower urinary tract symptoms; R91.8 Other nonspecific abnormal finding of lung field; Z20.822 Contact with and (suspected) exposure to COVID-19; Z79.899 Other long term (current) drug therapy; Z80.3 Family history of malignant neoplasm of breast; Z80.7 Family history of other malignant neoplasms of lymphoid, hematopoietic and related tissues; Z85.038 Personal history of other malignant neoplasm of large intestine; Z85.828 Personal history of other malignant neoplasm of skin; Z86.711 Personal history of pulmonary embolism; Z87.01 Personal history of pneumonia (recurrent); Z87.891 Personal history of nicotine dependence; Z96.653 Presence of artificial knee joint, bilateral; Z98.42 Cataract extraction status, left eye; Z98.41 Cataract extraction status, right eye; Z57.4 Occupational exposure to toxic agents in agriculture; Z98.890 Other specified postprocedural states; Z89.111 Acquired absence of right hand; Z96.612 Presence of left artificial shoulder joint; Z90.49 Acquired absence of other specified parts of digestive tract; Z79.1 Long term (current) use of non-steroidal anti-inflammatories (NSAID); Z82.49 Family history of ischemic heart disease and other diseases of the circulatory system
CPT/HCPCS: 36415; 71046; 71275; 76604; 80053; 80061; 83036; 83605; 83735; 83880; 84145; 84484; 85025; 85379; 85610; 85730; 86140; 87040; 87502; 87635; 93005; 93306; 94640; 94760; 96374; 99285

== ENCOUNTER 2022-02-14 07:06 | Inpatient (IN) | payer OTHER ==
[2022-02-14] MEDS ORDERED: methylPREDNISolone SOD SUCCI 125 MG/2 ML VIAL IV STA (07:23)
[2022-02-14] MEDS ORDERED: IPRATROPIUM-ALBUTEROL 3 ML NEB INHALATION STA (07:23)
--- NOTE | 2022-02-14 07:30 | ED ---
SOB HPI - General Chief Complaint: Shortness of Breath Stated Complaint: Difficulty Breathing, Shortness of breath, Wheezin Time Seen by Provider: 02/14/22 07:11 Source: patient, family, RN notes reviewed, old records reviewed Mode of arrival: ambulatory Limitations: no limitations - History of Present Illness Initial Comments: 77-year-old male with a history of atrial fibrillation history of pulmonary embolus in the past history of COPD who presents with complaints of shortness of breath and exertional dyspnea which started 2 days ago but got really bad last evening. No fevers chills sweats no chest pain slight cough with no overt phlegm. No peripheral edema. No other current complaints or modifying factors. MD Complaint: shortness of breath - Related Data Home Medications Medication Instructions Recorded Confirmed Atorvastatin [Lipitor] 20 mg PO HS 11/25/18 02/14/22 Meloxicam [Mobic] 15 mg PO DAILY 01/21/20 02/14/22 predniSONE 5 mg PO DAILY 01/21/20 02/14/22 Furosemide [Lasix] 20 mg PO AC-BRKFST 03/14/20 02/14/22 Albuterol Inhaler [Ventolin Hfa 1 puff INHALATION RT-Q4H PRN 05/01/21 02/14/22 Inhaler] Calcium Carbonate/Vitamin D3 1 tab PO BID 05/01/21 02/14/22 [Calcium 500-Vit D3 5 Mcg (200 Iu)] Cholecalciferol [Vitamin D3 (25 50 mcg PO DAILY 05/01/21 02/14/22 Mcg = 1000 Iu)] Fluticasone Propion/Salmeterol 1 puff INHALATION RT-BID 05/01/21 02/14/22 [Advair 250-50 Diskus] Omeprazole [PriLOSEC] 20 mg PO AC-BRKFST 05/01/21 02/14/22 Potassium Chloride [Klor-Con 10 ER] 10 meq PO DAILY 05/01/21 02/14/22 Tamsulosin [Flomax] 0.4 mg PO HS 05/01/21 02/14/22 Leflunomide [Arava] 20 mg PO DAILY 10/30/21 02/14/22 Albuterol Nebulized [Ventolin 2.5 mg INHALATION RT-Q4H PRN 02/14/22 02/14/22 Nebulized] Metoprolol Tartrate [Lopressor] 25 mg PO BID 02/14/22 02/14/22 Tiotropium 2.5 Mcg/Puff [Spiriva 2 puff INHALATION RT-DAILY 02/14/22 02/14/22 Respimat 2.5 Mcg] metFORMIN HCL ER [Glucophage XR] 500 mg PO DAILY 02/14/22 02/14/22 Allergies Allergy/AdvReac Type Severity Reaction Status Date / Time No Known Allergies Allergy Verified 02/14/22 11:14 Review of Systems ROS Statement: Those systems with pertinent positive or pertinent negative responses have been documented in the HPI. ROS Other: All systems not noted in ROS Statement are negative. Past Medical History Past Medical History: Cancer, Eye Disorder, Hyperlipidemia, Prostate Disorder, Pulmonary Embolus (PE), Rheumatoid Arthritis (RA) Additional Past Medical History / Comment(s): 2014 R sided PE, bilateral chronic lung nodules, "leaky heart valve", BPH, skin cancer with removals, malignant colon polyps removed, headaches since CHI, bilateral cataracts. History of Any Multi-Drug Resistant Organisms: None Reported Past Surgical History: Appendectomy, Cholecystectomy, Heart Catheterization, Joint Replacement, Orthopedic Surgery Additional Past Surgical History / Comment(s): R knee arthroscopy, bilateral total knee arthroplasties, R shoulder rotator cuff repair, total L shoulder, bilateral elbow surgery, R hand partial amputation d/t injury, colonoscopy with 2 cancerous polypectomies, skin cancer removed, EGD Past Anesthesia/Blood Transfusion Reactions: No Reported Reaction Additional Past Anesthesia/Blood Transfusion Reaction / Comment(s): Pt has never recieved blood. Past Psychological History: No Psychological Hx Reported Smoking Status: Never smoker Past Alcohol Use History: None Reported Past Drug Use History: None Reported - Past Family History Son(s) Family Medical History: Deep Vein Thrombosis (DVT) Father Family Medical History: Cancer Additional Family Medical History / Comment(s): Father of lymphoma at age 70 yrs. Mother Family Medical History: Cancer Additional Family Medical History / Comment(s): Mother had breast cancer. She at age 88yrs. General Exam - General Exam Comments Initial Comments: This is a well-developed well-nourished awake alert oriented 4 male Limitations: no limitations General appearance: alert, anxious Head exam: Present: atraumatic, normocephalic, normal inspection Eye exam: Present: normal appearance, PERRL, EOMI. Absent: scleral icterus, conjunctival injection, periorbital swelling ENT exam: Present: normal exam, mucous membranes moist Neck exam: Present: normal inspection, full ROM, other (Stridor JVD or bruits). Absent: tenderness, meningismus, lymphadenopathy Respiratory exam: Present: rales, decreased breath sounds. Absent: respiratory distress, wheezes, rhonchi, stridor Cardiovascular Exam: Present: tachycardia, irregular rhythm, other (Heart rate on my exam 116). Absent: systolic murmur, diastolic murmur, rubs, gallop, clicks GI/Abdominal exam: Present: soft, normal bowel sounds. Absent: distended, tenderness, guarding, rebound, rigid Extremities exam: Present: normal inspection, full ROM, normal capillary refill. Absent: tenderness, pedal edema, joint swelling, calf tenderness Back exam: Present: normal inspection Neurological exam: Present: alert, oriented X3, CN II-XII intact Psychiatric exam: Present: normal affect, normal mood Skin exam: Present: warm, dry, intact, normal color. Absent: rash Course Vital Signs 02/14/22 02/14/22 02/14/22 07:08 07:10 08:35 Temperature 97.7 F Pulse Rate 49 L 101 H Respiratory 24 22 18 Rate Blood Pressure 132/77 O2 Sat by Pulse 94 L Oximetry 02/14/22 02/14/22 08:41 13:35 Temperature Pulse Rate 151 H 140 H Respiratory 18 16 Rate Blood Pressure 117/81 O2 Sat by Pulse 94 L Oximetry - Reevaluation(s) Reevaluation #1: 02/14/22 08:07 Today's EKG compared with one dated 10/30/21 which at that time showed normal sinus rhythm. Per the patient's he does have intermittent episodes of A. fib. Medical Decision Making - Medical Decision Making I did discuss the case with from the [facility] was a critical patient and to his service - Lab Data Result diagrams: 02/14/22 07:43 02/14/22 09:05 Lab Results 02/14/22 02/14/22 02/14/22 Range/Units 07:43 07:43 07:43 WBC 7.9 (3.8-10.6) k/uL RBC 5.22 (4.30-5.90) m/uL Hgb 14.2 (13.0-17.5) gm/dL Hct 45.2 (39.0-53.0) % MCV 86.6 (80.0-100.0) fL MCH 27.2 (25.0-35.0) pg MCHC 31.4 (31.0-37.0) g/dL RDW 14.3 (11.5-15.5) % Plt Count 323 (150-450) k/uL MPV 8.0 Neutrophils % 70 % Lymphocytes % 20 % Monocytes % 7 % Eosinophils % 1 % Basophils % 1 % Neutrophils # 5.5 (1.3-7.7) k/uL Lymphocytes # 1.6 (1.0-4.8) k/uL Monocytes # 0.6 (0-1.0) k/uL Eosinophils # 0.1 (0-0.7) k/uL Basophils # 0.1 (0-0.2) k/uL PT (9.0-12.0) sec INR (<1.2) APTT (22.0-30.0) sec D-Dimer (<0.60) mg/L FEU Sodium (137-145) mmol/L Potassium (3.5-5.1) mmol/L Chloride (98-107) mmol/L Carbon Dioxide (22-30) mmol/L Anion Gap mmol/L BUN (9-20) mg/dL Creatinine (0.66-1.25) mg/dL Est GFR (CKD-EPI)AfAm (>60 ml/min/1.73 sqM) Est GFR (CKD-EPI)NonAf (>60 ml/min/1.73 sqM) Glucose (74-99) mg/dL Plasma Lactic Acid Jarret (0.7-2.0) mmol/L Calcium (8.4-10.2) mg/dL Magnesium (1.6-2.3) mg/dL Total Bilirubin (0.2-1.3) mg/dL AST (17-59) U/L ALT (4-49) U/L Alkaline Phosphatase (38-126) U/L Troponin I (0.000-0.034) ng/mL NT-Pro-B Natriuret Pep 183 pg/mL Total Protein (6.3-8.2) g/dL Albumin (3.5-5.0) g/dL Coronavirus (PCR) (Not Detectd) Influenza Type A RNA Not Detected (Not Detectd) Influenza Type B (PCR) Not Detected (Not Detectd) 02/14/22 02/14/22 02/14/22 Range/Units 07:43 09:05 09:05 WBC (3.8-10.6) k/uL RBC (4.30-5.90) m/uL Hgb (13.0-17.5) gm/dL Hct (39.0-53.0) % MCV (80.0-100.0) fL MCH (25.0-35.0) pg MCHC (31.0-37.0) g/dL RDW (11.5-15.5) % Plt Count (150-450) k/uL MPV Neutrophils % % Lymphocytes % % Monocytes % % Eosinophils % % Basophils % % Neutrophils # (1.3-7.7) k/uL Lymphocytes # (1.0-4.8) k/uL Monocytes # (0-1.0) k/uL Eosinophils # (0-0.7) k/uL Basophils # (0-0.2) k/uL PT (9.0-12.0) sec INR (<1.2) APTT (22.0-30.0) sec D-Dimer (<0.60) mg/L FEU Sodium 137 (137-145) mmol/L Potassium 4.7 (3.5-5.1) mmol/L Chloride 105 (98-107) mmol/L Carbon Dioxide 22 (22-30) mmol/L Anion Gap 10 mmol/L BUN 23 H (9-20) mg/dL Creatinine 0.99 (0.66-1.25) mg/dL Est GFR (CKD-EPI)AfAm 85 (>60 ml/min/1.73 sqM) Est GFR (CKD-EPI)NonAf 73 (>60 ml/min/1.73 sqM) Glucose 144 H (74-99) mg/dL Plasma Lactic Acid Jarret (0.7-2.0) mmol/L Calcium 9.7 (8.4-10.2) mg/dL Magnesium 2.0 (1.6-2.3) mg/dL Total Bilirubin 0.6 (0.2-1.3) mg/dL AST 20 (17-59) U/L ALT 23 (4-49) U/L Alkaline Phosphatase 157 H (38-126) U/L Troponin I <0.012 (0.000-0.034) ng/mL NT-Pro-B Natriuret Pep pg/mL Total Protein 6.5 (6.3-8.2) g/dL Albumin 3.6 (3.5-5.0) g/dL Coronavirus (PCR) Not Detected (Not Detectd) Influenza Type A RNA (Not Detectd) Influenza Type B (PCR) (Not Detectd) 02/14/22 02/14/22 Range/Units 09:05 09:05 WBC (3.8-10.6) k/uL RBC (4.30-5.90) m/uL Hgb (13.0-17.5) gm/dL Hct (39.0-53.0) % MCV (80.0-100.0) fL MCH (25.0-35.0) pg MCHC (31.0-37.0) g/dL RDW (11.5-15.5) % Plt Count (150-450) k/uL MPV Neutrophils % % Lymphocytes % % Monocytes % % Eosinophils % % Basophils % % Neutrophils # (1.3-7.7) k/uL Lymphocytes # (1.0-4.8) k/uL Monocytes # (0-1.0) k/uL Eosinophils # (0-0.7) k/uL Basophils # (0-0.2) k/uL PT 10.2 (9.0-12.0) sec INR 0.9 (<1.2) APTT 21.9 L (22.0-30.0) sec D-Dimer 1.29 H (<0.60) mg/L FEU Sodium (137-145) mmol/L Potassium (3.5-5.1) mmol/L Chloride (98-107) mmol/L Carbon Dioxide (22-30) mmol/L Anion Gap mmol/L BUN (9-20) mg/dL Creatinine (0.66-1.25) mg/dL Est GFR (CKD-EPI)AfAm (>60 ml/min/1.73 sqM) Est GFR (CKD-EPI)NonAf (>60 ml/min/1.73 sqM) Glucose (74-99) mg/dL Plasma Lactic Acid Jarret 1.4 (0.7-2.0) mmol/L Calcium (8.4-10.2) mg/dL Magnesium (1.6-2.3) mg/dL Total Bilirubin (0.2-1.3) mg/dL AST (17-59) U/L ALT (4-49) U/L Alkaline Phosphatase (38-126) U/L Troponin I (0.000-0.034) ng/mL NT-Pro-B Natriuret Pep pg/mL Total Protein (6.3-8.2) g/dL Albumin (3.5-5.0) g/dL Coronavirus (PCR) (Not Detectd) Influenza Type A RNA (Not Detectd) Influenza Type B (PCR) (Not Detectd) - EKG Data -: EKG Interpreted by Me EKG Comments: Atrial fibrillation rate of 116 QRS 85 daily since QTC 306/[address]-T wave changes Critical Care Time Critical Care Time: Yes Total Critical Care Time: 39 Critical Care Time: This time includes initial presentation with history physical labs x-rays multiple re-evaluations of the patient to determine response to therapy discuss with the patient family regarding the findings discussed with the main physician admission orders and documentation of the above Disposition Clinical Impression: Acute exacerbation of chronic obstructive pulmonary disease, Recurrent right pleural effusion, Rapid atrial fibrillation, Elevated d-dimer Disposition: ADMITTED IP TO THIS HOSP Condition: Fair Referrals: [facility] [Primary Care Provider] - 1-2 days Decision Date: 02/14/22 Decision Time: 14:30
[2022-02-14 08:36] LABS: Basophils # (A) 0.1 k/uL (0-0.2); Basophils % (A) 1 %; Eosinophils # (A) 0.1 k/uL (0-0.7); Eosinophils % (A) 1 %; HCT 45.2 % (39.0-53.0); HGB 14.2 gm/dL (13.0-17.5); Lymphocytes # (A) 1.6 k/uL (1.0-4.8); Lymphocytes % (A) 20 %; MCH 27.2 pg (25.0-35.0); MCHC 31.4 g/dL (31.0-37.0); MCV 86.6 fL (80.0-100.0); Monocytes # (A) 0.6 k/uL (0-1.0); Monocytes % (A) 7 %; Neutrophils # (A) 5.5 k/uL (1.3-7.7); Neutrophils % (A) 70 %; Platelet Count 323 k/uL (150-450); RBC 5.22 m/uL (4.30-5.90); RDW 14.3 % (11.5-15.5); WBC 7.9 k/uL (3.8-10.6)
[2022-02-14] MEDS ORDERED: DILTIAZEM 5 MG/ML 5 ML VIAL IVP STA (08:51)
[2022-02-14] MEDS ORDERED: FUROSEMIDE 10 MG/ML 4 ML VIAL IV STA (08:51)
[2022-02-14] MEDS ORDERED: DILTIAZEM DRIP BOLUS FROM BAG 1 MG SOLN IV STA (09:04)
[2022-02-14] MEDS: DILTIAZEM 125 MG in SODIUM CHLORIDE 0.9% 100 ML IV SCH ×2 (09:06→19:56)
--- NOTE | 2022-02-14 09:06 | XR ---
EXAMINATION TYPE: XR chest 2V DATE OF EXAM: 02/14/2022 COMPARISON: 10/30/2021 TECHNIQUE: PA and lateral views submitted. HISTORY: Difficulty breathing FINDINGS: Nodule measuring 8 mm right upper lobe with biapical pleural. Left upper lobe pulmonary nodules noted . Underlying COPD and chronic interstitial lung disease. Bilateral infiltrates greater on the right s table. Surgical clips gallbladder fossa. Post change left shoulder. Hypertrophic and degenerative aden nges of the spine. IMPRESSION: 1. COPD with bilateral infiltrate and pleural effusion correlate for CHF otherwise consider pneumonia . 2. Bilateral upper lobe pulmonary nodule. Correlate for history of malignancy.
[2022-02-14 09:43] LABS: INR 0.9 (<1.2); Prothrombin Time 10.2 sec (9.0-12.0)
[2022-02-14 09:52] LABS: Albumin 3.6 g/dL (3.5-5.0); Calcium 9.7 mg/dL (8.4-10.2); Potassium 4.7 mmol/L (3.5-5.1); Total Bilirubin 0.6 mg/dL (0.2-1.3); Total Protein 6.5 g/dL (6.3-8.2)
[2022-02-14 10:12] LABS: Partial Thromboplastin Time 21.9 sec (22.0-30.0)
[2022-02-14] MEDS ORDERED: SODIUM CHLORIDE 0.9% 500 ML 500 ML IV STA (12:03)
--- NOTE | 2022-02-14 12:03 | CT ---
EXAMINATION TYPE: CT angio chest DATE OF EXAM: 02/14/2022 11:45 AM COMPARISON: 05/01/2021 HISTORY: Shortness of breath. CT DLP: 392.3 mGycm Automated exposure control for dose reduction was used. CONTRAST: CTA scan of the thorax is performed with IV Contrast, patient injected with 75 mL of Isovue 300, pulm onary embolism protocol. . FINDINGS: LUNGS: Biapical pleural thickening with subpleural nodularity measuring less than 5 mm. Findings stab le from prior exam. More prominent nodular densities seen in the right upper lobe laterally was also seen on the prior exam measuring 1.2 cm. Areas of subsegmental consolidation are seen in the right up per lobe. Additional nodules are seen in the right upper lobe on axial image 16 measuring 5 mm. There is a moderate-sized right pleural effusion. Linear change left apex is suggestive. There is a 3 mm n odule axial image 47 left upper lobe posterolaterally. Subsegmental consolidation at the left lung ba se. Pleural-based calcifications are noted. Additional 5 mm nodule left upper lobe axial image 67 in the left perihilar region. MEDIASTINUM: There is satisfactory enhancement of the pulmonary artery and its branches, there is no CT evidence for pulmonary embolism. There are no greater than 1 cm hilar or mediastinal lymph nodes. Coronary artery calcification noted. Atherosclerotic change aorta. No evidence of aneurysm. OTHER: Hypertrophic and degenerative changes of the spine. A calcification in the left adrenal gland noted. Postsurgical change involving the left shoulder. IMPRESSION: 1. No CT evidence of central pulmonary embolism. 2. Moderate to large size right pleural effusion with consolidation. 3. There are multiple bilateral pulmonary nodules largest measuring 1.1 cm right upper lobe consider PET scan.
[2022-02-14] MEDS ORDERED: ACETAMINOPHEN TAB 325 MG TAB PO PRN (14:53)
[2022-02-14] MEDS ORDERED: NALOXONE 0.4 MG/ML 1 ML VIAL IVP PRN (14:53)
[2022-02-14] MEDS: IPRATROPIUM-ALBUTEROL 3 ML NEB INHALATION SCH ×2 (15:06→19:55)
--- NOTE | 2022-02-14 15:45 | P.HPIM ---
History of Present Illness Chief Complaint: Shortness of breath Patient is a 77-year-old male with a past medical history significant for melanoma diagnosed 1 month ago, rheumatoid arthritis, history of pulmonary embolism, hyperlipidemia, the presents a hospital complaining of shortness of breath. This apparently began 2 weeks ago and has been progressively getting worse. Patient denies any productive cough, fever or chills. History was ob tained by patient as well as family member present at bedside. Patient is scheduled for a PET scan in the next few weeks to months as per . Patient is unable to walk more than a block without getting shortness of breath. Computed tomography scan showed a moderate to large pleural effusion. Vital signs reviewed patient continues to be in sinus tach at bedside in the 130s to 140s. I did speak with emergency medicine doctor to confirm consultation to cardiology. Patient was also started on Cardizem drip which has been titrated up at bedside. CBC is unremarkable BMP reviewed cardiac troponin negative electrodes within normal limits including creatinine. CT also showed multiple bilateral pulmonary nodules largest measuring 1.1 cm in the right upper lobe. Past Medical History Past Medical History: Cancer, Eye Disorder, Hyperlipidemia, Prostate Disorder, Pulmonary Embolus (PE), Rheumatoid Arthritis (RA) Additional Past Medical History / Comment(s): 2015 R sided PE, bilateral chronic lung nodules, "leaky heart valve", BPH, skin cancer with removals, malignant colon polyps removed, headaches since CHI, bilateral cataracts. History of Any Multi-Drug Resistant Organisms: None Reported Past Surgical History: Appendectomy, Cholecystectomy, Heart Catheterization, Brenda nt Replacement, Orthopedic Surgery Additional Past Surgical History / Comment(s): R knee arthroscopy, bilateral total knee arthroplasties, R shoulder rotator cuff repair, total L shoulder, bilateral elbow surgery, R hand partial amputation d/t injury, colonoscopy with 2 cancerous polypectomies, skin cancer removed, EGD Past Anesthesia/Blood Transfusion Reactions: No Reported Reaction Additional Past Anesthesia/Blood Transfusion Reaction / Comment(s): Pt has never recieved blood. Past Psychological History: No Psychological Hx Reported Smoking Status: Never smoker Past Alcohol Use History: None Reported Past Drug Use History: None Reported - Past Family History Son(s) Family Medical History: Deep Vein Thrombosis (DVT) Father Family Medical History: Cancer Additional Family Medical History / Comment(s): Father of lymphoma at age 70 yrs. Mother Family Medical History: Cancer Additional Family Medical History / Comment(s): Mother had breast cancer. She at age 88yrs. Medications and Allergies Home Medications Medication Instructions Recorded Confirmed Type Atorvastatin [Lipitor] 20 mg PO HS 11/25/18 02/14/22 History Meloxicam [Mobic] 15 mg PO DAILY 01/21/20 02/14/22 History predniSONE 5 mg PO DAILY 01/21/20 02/14/22 History Furosemide [Lasix] 20 mg PO AC-BRKFST 03/14/20 02/14/22 History Albuterol Inhaler [Ventolin Hfa 1 puff INHALATION RT-Q4H PRN 05/01/21 02/14/22 History Inhaler] Calcium Carbonate/Vitamin D3 1 tab PO BID 05/01/21 02/14/22 History [Calcium 500-Vit D3 5 Mcg (200 Iu)] Cholecalciferol [Vitamin D3 (25 50 mcg PO DAILY 05/01/21 02/14/22 History Mcg = 1000 Iu)] Fluticasone Propion/Salmeterol 1 puff INHALATION RT-BID 05/01/21 02/14/22 History [Advair 250-50 Diskus] Omeprazole [PriLOSEC] 20 mg PO -BRKT 05/01/21 02/14/22 History Potassium Chloride [Klor-Con 10 ER] 10 meq PO DAILY 05/01/21 02/14/22 History Tamsulosin [Flomax] 0.4 mg PO HS 05/01/21 02/14/22 History Leflunomide [Arava] 20 mg PO DAILY 10/30/21 02/14/22 History Albuterol Nebulized [Ventolin 2.5 mg INHALATION RT-Q4H PRN 02/14/22 02/14/22 History Nebulized] Metoprolol Tartrate [Lopressor] 25 mg PO BID 02/14/22 02/14/22 History Tiotropium 2.5 Mcg/Puff [Spiriva 2 puff INHALATION RT-DAILY 02/14/22 02/14/22 History Respimat 2.5 Mcg] metFORMIN HCL ER [Glucophage XR] 500 mg PO DAILY 02/14/22 02/14/22 History Allergies Allergy/AdvReac Type Severity Reaction Status Date / Time No Known Allergies Allergy Verified 02/14/22 11:14 Physical Exam Vitals: Vital Signs Temp Pulse Resp BP Pulse Ox 02/14/22 15:05 144 H 16 123/77 95 02/14/22 13:35 140 H 16 117/81 94 L 02/14/22 08:41 151 H 18 02/14/22 08:35 101 H 18 02/14/22 07:10 22 02/14/22 07:08 97.7 F 49 L 24 132/77 94 L Intake and Output 02/14/22 02/14/22 02/14/22 06:59 14:59 22:59 Intake Total 22.5 Balance 22.5 Intake: Intake, IV Titration 22.5 Amount Diltiazem 125 mg In 22.5 Sodium Chloride 0.9% 100 ml @ 5 MG/HR 5 mls/hr IV .Q24H [facility] Rx#:[id number] Other: Weight 89.811 kg Gen. patient is awake alert oriented 3 Cardio normal S1/S2, tachycardia Respiratory no wheezing or rhonchi appreciated however there was decreased breath sounds noted on the right side Extremity patient has no digits on the right extremity secondary to trauma Abdomen soft, nontender Extremity no pitting edema noted Psych patient is good spirits Results CBC & Chem 7: 02/14/22 07:43 02/14/22 09:05 Labs: Abnormal Lab Results - Last 24 Hours (Table) 02/14/22 02/14/22 Range/Units 09:05 09:05 APTT 21.9 L (22.0-30.0) sec D-Dimer 1.29 H (<0.60) mg/L FEU BUN 23 H (9-20) mg/dL Glucose 144 H (74-99) mg/dL Alkaline Phosphatase 157 H (38-126) U/L Assessment and Plan Assessment: Assessment: #1 acute hypoxic respiratory distress secondary to moderate/large pleural effusion #2 history of COPD #3 history of pulmonary embolism #4 hyperlipidemia #5 history of melanoma pending PET scan Plan: -Admit to medicine for close monitoring -Aspiration/fall precaution -Maintain saturations above 90%, continue with breathing treatments when necessary -We'll start the patient on Rocephin and azithromycin for possible underlying consolidation -Consultation to IR for thoracentesis including culture, analysis -Pulmonary consulted from the emergency department -We'll benefit from hematology/oncology consultation -Pain control when necessary -DVT prophylaxis -PT/OT
[2022-02-14 16:30] LABS: Basophils % (A) 0 %; Eosinophils % (A) 1 %; HCT 45.4 % (39.0-53.0); HGB 14.3 gm/dL (13.0-17.5); Lymphocytes # (A) 0.9 k/uL (1.0-4.8); Lymphocytes % (A) 16 %; MCH 27.3 pg (25.0-35.0); MCHC 31.6 g/dL (31.0-37.0); MCV 86.3 fL (80.0-100.0); Mean Platelet Volume 7.8; Monocytes # (A) 0.1 k/uL (0-1.0); Monocytes % (A) 1 %; Neutrophils # (A) 4.6 k/uL (1.3-7.7); Neutrophils % (A) 81 %; Platelet Count 335 k/uL (150-450); RBC 5.26 m/uL (4.30-5.90); RDW 14.2 % (11.5-15.5); WBC 5.6 k/uL (3.8-10.6)
[2022-02-14 16:41] LABS: Calcium 9.5 mg/dL (8.4-10.2); Potassium 4.1 mmol/L (3.5-5.1)
[2022-02-14] MEDS: AZITHROMYCIN 500 MG in SODIUM CHLORIDE 0.9% 250 ML IVPB SCH (17:26)
[2022-02-14] MEDS ORDERED: DEXTROSE 50% SYRINGE 50 ML IVP PRN ×2 (19:28)
[2022-02-14] MEDS: methylPREDNISolone SOD SUCCI 125 MG/2 ML VIAL IV SCH ×2 (19:30→23:17)
[2022-02-14 19:48] LABS: Glucose,Whole Blood 301 mg/dL (70-110)
[2022-02-14] MEDS: TAMSULOSIN 0.4 MG CAP.ER.24H PO SCH (19:55)
[2022-02-14] MEDS: SYMBICORT 80-4.5 MCG INHALER INHALATION SCH (19:55)
[2022-02-14] MEDS: ATORVASTATIN 20 MG TAB PO SCH (19:55)
[2022-02-14] MEDS: METOPROLOL TARTRATE 25 MG TAB PO SCH (19:56)
[2022-02-14] MEDS: INSULIN ASPART (NovoLOG) 100 UNIT/ML VIAL SQ SCH (19:56)
[2022-02-14] MEDS: CALCIUM CARB-VIT D 500 MG-5 MCG TAB PO SCH (19:56)
[2022-02-14 20:39] LABS: Glucose,Whole Blood 236 mg/dL (70-110)
[2022-02-15] MEDS: PANTOPRAZOLE 40 MG TABLET PO SCH (03:56)
[2022-02-15 05:50] LABS: Basophils % (A) 0 %; Eosinophils % (A) 0 %; HCT 43.2 % (39.0-53.0); HGB 14.1 gm/dL (13.0-17.5); Lymphocytes # (A) 1.4 k/uL (1.0-4.8); Lymphocytes % (A) 18 %; MCH 28.7 pg (25.0-35.0); MCHC 32.6 g/dL (31.0-37.0); Mean Platelet Volume 7.9; Monocytes # (A) 0.2 k/uL (0-1.0); Monocytes % (A) 3 %; Neutrophils # (A) 6.2 k/uL (1.3-7.7); Neutrophils % (A) 78 %; Platelet Count 340 k/uL (150-450); RDW 14.3 % (11.5-15.5); WBC 7.9 k/uL (3.8-10.6)
[2022-02-15 06:07] LABS: Glucose,Whole Blood 211 mg/dL (70-110)
[2022-02-15 06:08] LABS: Calcium 9.7 mg/dL (8.4-10.2); Potassium 3.9 mmol/L (3.5-5.1)
[2022-02-15] MEDS: INSULIN ASPART (NovoLOG) 100 UNIT/ML VIAL SQ SCH ×4 (06:14→21:40)
[2022-02-15] MEDS: methylPREDNISolone SOD SUCCI 125 MG/2 ML VIAL IV SCH (06:15)
[2022-02-15] MEDS: SYMBICORT 80-4.5 MCG INHALER INHALATION SCH ×2 (07:29→19:43)
[2022-02-15] MEDS: IPRATROPIUM-ALBUTEROL 3 ML NEB INHALATION SCH ×4 (07:29→19:44)
[2022-02-15] MEDS ORDERED: FUROSEMIDE 20 MG TAB PO SCH (07:30)
[2022-02-15] MEDS ORDERED: NON FORMULARY DRUG (Tiotropium 2.5 Mcg/Puff 10 PUFF Each) INHALATION SCH (08:00)
[2022-02-15] MEDS ORDERED: metFORMIN 500 MG TAB PO SCH (09:00)
--- NOTE | 2022-02-15 09:06 | P.PN ---
Subjective Patient was examined at bedside today states that his shortness of breath is improving compared to yesterday. nuclear plant technical advisor is at bedside to complete 2-D echocardiogram. Patient denies any phlegm production, fever or chills overnight. Case also discussed with RN. Pending thoracentesis and evaluation by consulting teams. Objective - Vital Signs Vital signs: Vital Signs Temp 97.8 F 02/15/22 03:23 Pulse 84 02/15/22 07:42 Resp 18 02/15/22 07:35 BP 128/69 02/15/22 07:35 Pulse Ox 99 02/15/22 07:35 FiO2 Intake & Output 02/14/22 02/15/22 02/15/22 18:59 06:59 18:59 Intake Total 37.5 309.333 Output Total 450 200 Balance 37.5 -140.667 -200 Weight 89.811 kg 88.5 kg Intake: Intake, IV Titration 37.5 69.333 Amount Diltiazem 125 mg In 37.5 69.333 Sodium Chloride 0.9% 100 ml @ 5 MG/HR 5 mls/hr IV .Q24H [facility] Rx#:[id number] Oral 240 Output: Urine 450 200 Other: Voiding Method Toilet Toilet Urinal # Voids 1 - Exam Gen. patient is awake alert oriented 3 Cardio normal S1/S2, tachycardia Respiratory no wheezing or rhonchi appreciated however there was decreased breath sounds noted on the right side Extremity patient has no digits on the right extremity secondary to trauma Abdomen soft, nontender Extremity no pitting edema noted Psych patient is good spirits - Labs CBC & Chem 7: 02/15/22 05:38 02/15/22 05:38 Labs: Abnormal Lab Results - Last 24 Hours (Table) 02/14/22 02/14/22 02/14/22 Range/Units 09:05 09:05 16:14 Lymphocytes # 0.9 L (1.0-4.8) k/uL APTT 21.9 L (22.0-30.0) sec D-Dimer 1.29 H (<0.60) mg/L FEU Sodium (137-145) mmol/L Carbon Dioxide (22-30) mmol/L BUN 23 H (9-20) mg/dL Glucose 144 H (74-99) mg/dL POC Glucose (mg/dL) (70-110) mg/dL Alkaline Phosphatase 157 H (38-126) U/L TSH (0.465-4.680) mIU/L 02/14/22 02/14/22 02/14/22 Range/Units 16:14 19:47 20:38 Lymphocytes # (1.0-4.8) k/uL APTT (22.0-30.0) sec D-Dimer (<0.60) mg/L FEU Sodium 136 L (137-145) mmol/L Carbon Dioxide 20 L (22-30) mmol/L BUN 26 H (9-20) mg/dL Glucose 243 H (74-99) mg/dL POC Glucose (mg/dL) 301 H 236 H (70-110) mg/dL Alkaline Phosphatase (38-126) U/L TSH (0.465-4.680) mIU/L 02/15/22 02/15/22 02/15/22 Range/Units 05:38 05:38 06:06 Lymphocytes # (1.0-4.8) k/uL APTT (22.0-30.0) sec D-Dimer (<0.60) mg/L FEU Sodium (137-145) mmol/L Carbon Dioxide 19 L (22-30) mmol/L BUN 34 H (9-20) mg/dL Glucose 220 H (74-99) mg/dL POC Glucose (mg/dL) 211 H (70-110) mg/dL Alkaline Phosphatase (38-126) U/L TSH 0.020 L (0.465-4.680) mIU/L Assessment and Plan Assessment: Assessment: #1 acute hypoxic respiratory distress secondary to moderate/large pleural effusion #2 history of COPD #3 history of pulmonary embolism #4 hyperlipidemia #5 history of melanoma pending PET scan #6 prediabetes. A1c 6.0 Plan: -Admit to medicine for close monitoring -Aspiration/fall precaution -Maintain saturations above 90%, continue with breathing treatments when necessary -Start patient on azithromycin for now and continue with Lasix -IV methylprednisolone 40 twice a day -Consultation to IR for thoracentesis including culture, analysis -Pulmonary consulted from the emergency department -We'll benefit from hematology/oncology consultation -Pain control when necessary -DVT prophylaxis -PT/OT
--- NOTE | 2022-02-15 09:36 | XR ---
EXAMINATION TYPE: XR chest 1V portable DATE OF EXAM: 02/15/2022 COMPARISON: 02/14/2022 HISTORY: Shortness of breath TECHNIQUE: Single frontal view of the chest is obtained. FINDINGS: Nodule measuring 8 mm right upper lobe with biapical pleural. Left upper lobe pulmonary no dules noted. Underlying COPD and chronic interstitial lung disease. Bilateral infiltrates greater on the right stable. Surgical clips gallbladder fossa. Post change left shoulder. Hypertrophic and degen erative changes of the spine. Surgical clips overlying the left apex. IMPRESSION: 1. COPD with stable bilateral infiltrate and pleural effusion greater on right.
--- NOTE | 2022-02-15 09:54 | CA ---
Transthoracic Echo Report Name: Ginger Quintanilla Age: 77 Gender: M : 1945 Exam Date: 02/15/2022 08:38 Exam Location: [facility] Ht (in): 71 Wt (lb): 195 Ordering Physician: Laura Jansen Attending/Referring Phys: Director Business Management Bernadette Schwartz RDCS Procedure CPT: Indications: New Onset Atrial Fibrillation Cardiac Hx: Hx of hyperlipidemia Technical Quality: Fair Contrast 1: Total Dose (mL): Contrast 2: Total Dose (mL): MEASUREMENTS (Male / Female) Normal Values 2D ECHO LV Diastolic Diameter PLAX 2.6 cm 4.2 - 5.9 / 3.9 - 5.3 cm LV Systolic Diameter PLAX 1.3 cm IVS Diastolic Thickness 1.8 cm 0.6 - 1.0 / 0.6 - 0.9 cm LVPW Diastolic Thickness 1.7 cm 0.6 - 1.0 / 0.6 - 0.9 cm LV Relative Wall Thickness 1.4 FINDINGS Left Ventricle Severe concentric lvh. Left ventricular ejection fraction is estimated at 55-60 _ %. Left ventricular cavity size normal. Right Ventricle Right Atrium Left Atrium Mitral Valve Aortic Valve Tricuspid Valve Pulmonic Valve Pericardium No pericardial effusion. Aorta CONCLUSIONS Concentric LVH and normal systolic function no pericardial effusion Previewed by: Dr. John Montoya MD (Electronically Signed) Final Date: 15 February 2022 09:54
[2022-02-15] MEDS: AZITHROMYCIN 500 MG in SODIUM CHLORIDE 0.9% 250 ML IVPB SCH (09:56)
[2022-02-15] MEDS: CALCIUM CARB-VIT D 500 MG-5 MCG TAB PO SCH ×2 (09:58→21:40)
[2022-02-15] MEDS: CHOLECALCIFEROL 25 MCG (1000 IU) TABLET PO SCH (09:58)
[2022-02-15] MEDS: MELOXICAM 7.5 MG TAB PO SCH (10:00)
[2022-02-15] MEDS: POTASSIUM CHLORIDE ER 10 MEQ TAB.ER.PRT PO SCH (10:01)
[2022-02-15] MEDS: METOPROLOL TARTRATE 25 MG TAB PO SCH ×2 (10:01→21:40)
[2022-02-15] MEDS: FUROSEMIDE 10 MG/ML 4 ML VIAL IV SCH (10:02)
[2022-02-15] MEDS: methylPREDNISolone SOD SUCCI 40 MG/ML 1 ML VIAL IV SCH ×2 (10:02→21:40)
--- NOTE | 2022-02-15 10:02 | P.CRDCN ---
History of Present Illness History of present illness: HISTORY OF PRESENTING ILLNESS This is a pleasant 77-year-old male past medical history significant for peripheral vascular disease, COPD, mild aortic regurgitation, dyslipidemia, former tobacco use, type 2 diabetes. He follows in the office with Dr. Rick. We have been asked to see in consultation for new onset atrial fibrillation. Patient presents to the emergency department with complaints of shortness of breath. He started to have shortness of breath that began a month ago. Over the past month, he has noted worsening dyspnea with his daily activities, symptoms of orthopnea and PND. Denies any lower extremity edema, chest pain, palpitations, lightheadedness, dizziness, syncope or near syncope. He denies history of CAD, [place], Stroke, Atrial fibrillation, heart failure. He is a former smoker quit 15-20 years ago. On admission patient was started on IV Lasix, IV steroids, IV Cardizem. Patient converted to sinus mechanism. Patient was not started on anticoagulation initially secondary to possible thoracentesis DIAGNOSTICS * EKG reveals atrial fibrillation with rapid ventricular response, heart rate 116 * Echocardiogram 10/2021 revealed EF of 5055% mild aortic regurgitation, mild mitral regurgitation, mild tricuspid regurgitation * Prior EKG in October 2021 patient was in sinus rhythm * Telemetry tracings indicate sinus rhythm heart rate 6070s * CTA report revealed no evidence of pulmonary embolism, bilateral large size right pleural effusion with consolidation. Multiple pulmonary nodules largest measuring 1.1 cm upper lobe, consider PET scan * Laboratory reviewed, proBNP 183, troponin negative, sodium 1:30, potassium 3.9, BUN 34, serum creatinine 1.02, CBC unremarkable * Current home medications include atorvastatin 20 mg nightly, metformin, Lasix 20 mg daily, metoprolol titrate 25 mg twice a day, Spiriva, Advair, Albuterol prednisone REVIEW OF SYSTEMS At the time of my exam: CONSTITUTIONAL: Denies fever or chills. CARDIOVASCULAR: Denies chest pain, Reports shortness of breath, Reports orthopnea, PND. Denies palpitations. RESPIRATORY: Denies cough. GASTROINTESTINAL: Denies abdominal pain, diarrhea, constipation, nausea or vomiting. MUSCULOSKELETAL: Denies myalgias. NEUROLOGIC: Denies numbness, tingling, headacbe or weakness. ENDOCRINE: Denies fatigue, weight change, polydipsia or polyurina. GENITOURINARY: Denies burning, hematuria or urgency with micturation. HEMATOLOGIC: Denies history of anemia or bleeding. PHYSICAL EXAMINATION Vitals 120/69, heart rate 82, afebrile, oxygen saturation 99% on room air CONSTITUTIONAL: No apparent distress. HEENT: Head is normocephalic. Pupils are equal, round. Sclerae anicteric. Mucous membranes of the mouth are moist. No JVD. CHEST EXAMINATION: Lungs diminished, crackles in the right base to ausculta tion. No chest wall tenderness is noted on palpation or with deep breathing. HEART EXAMINATION: Regular rate and rhythm. S1, S2 heard. ABDOMEN: Soft, nontender. Positive bowel sounds. EXTREMITIES: 2+ peripheral pulses, no lower extremity edema and no calf tenderness. SKIN: Warm, dry NEUROLOGIC EXAMINATION: Patient is awake, alert and oriented x3. ASSESSMENT New onset paroxysmal atrial fibrillation -[id number] score 3, maintaining sinus mechanism Shortness of breath, symptoms of orthopnea Moderate/Large Right pleural effusion Multiple pulmonary nodules reported on CT chest COPD Type 2 Diabetes Dyslipidemia History of peripheral vascular disease Former smoker PLAN Anticoagulation held at this time secondary to possible thoracentesis, will check coverage for Eliquis 5mg BID, recommend starting IV heparin or Eliquis based on invasive procedures being performed Stop IV Cardizem Metoprolol tartrate 25mg BID IV Lasix 40mg daily Continue to monitor renal functions Pulmonary consulted Obtain 2D echocardiogram Further recommendations based on clinical course Nurse practitioner note has been reviewed by physician. Signing provider agrees with the documented findings, assessment, and plan of care. Past Medical History Past Medical History: Cancer, Eye Disorder, Prostate Disorder, Pulmonary Embolus (PE), Rheumatoid Arthritis (RA) Additional Past Medical History / Comment(s): 2015 R sided PE, bilateral chronic lung nodules, "leaky heart valve", BPH, skin cancer (melanoma) with removals, malignant colon polyps removed, headaches since CHI, bilateral cataracts with removal. History of Any Multi-Drug Resistant Organisms: None Reported Past Surgical History: Appendectomy, Cholecystectomy, Heart Catheterization, Joint Replacement, Orthopedic Surgery Additional Past Surgical History / Comment(s): R knee arthroscopy, bilateral total knee arthroplasties, R shoulder rotator cuff repair, L knee replacement, bilateral elbow surgery, R hand partial amputation d/t injury, colonoscopy with 2 cancerous polypectomies, skin cancer removed, EGD Past Anesthesia/Blood Transfusion Reactions: No Reported Reaction Additional Past Anesthesia/Blood Transfusion Reaction / Comment(s): Pt has never recieved blood. Past Psychological History: No Psychological Hx Reported Additional Psychological History / Comment(s): Pt resides with his spouse. He is independent. Smoking Status: Former smoker Past Alcohol Use History: None Reported Past Drug Use History: None Reported - Past Family History Son(s) Family Medical History: Deep Vein Thrombosis (DVT) Father Family Medical History: Cancer Additional Family Medical History / Comment(s): Father of lymphoma at age 70 yrs. Mother Family Medical History: Cancer Additional Family Medical History / Comment(s): Mother had breast cancer. She at age 88yrs. Medications and Allergies Home Medications Medication Instructions Recorded Confirmed Type Atorvastatin [Lipitor] 20 mg PO HS 11/25/18 02/14/22 History Meloxicam [Mobic] 15 mg PO DAILY 01/21/20 02/14/22 History predniSONE 5 mg PO DAILY 01/21/20 02/14/22 History Furosemide [Lasix] 20 mg PO AC-BRKFST 03/14/20 02/14/22 History Albuterol Inhaler [Ventolin Hfa 1 puff INHALATION RT-Q4H PRN 05/01/21 02/14/22 History Inhaler] Calcium Carbonate/Vitamin D3 1 tab PO BID 05/01/21 02/14/22 History [Calcium 500-Vit D3 5 Mcg (200 Iu)] Cholecalciferol [Vitamin D3 (25 50 mcg PO DAILY 05/01/21 02/14/22 History Mcg = 1000 Iu)] Fluticasone Propion/Salmeterol 1 puff INHALATION RT-BID 05/01/21 02/14/22 History [Advair 250-50 Diskus] Omeprazole [PriLOSEC] 20 mg PO AC-BRKFST 05/01/21 02/14/22 History Potassium Chloride [Klor-Con 10 ER] 10 meq PO DAILY 05/01/21 02/14/22 History Tamsulosin [Flomax] 0.4 mg PO HS 05/01/21 02/14/22 History Leflunomide [Arava] 20 mg PO DAILY 10/30/21 02/14/22 History Albuterol Nebulized [Ventolin 2.5 mg INHALATION RT-Q4H PRN 02/14/22 02/14/22 History Nebulized] Metoprolol Tartrate [Lopressor] 25 mg PO BID 02/14/22 02/14/22 History Tiotropium 2.5 Mcg/Puff [Spiriva 2 puff INHALATION RT-DAILY 02/14/22 02/14/22 History Respimat 2.5 Mcg] metFORMIN HCL ER [Glucophage XR] 500 mg PO DAILY 02/14/22 02/14/22 History Apixaban [Eliquis] 5 mg PO BID #60 tab 02/15/22 Rx Allergies Allergy/AdvReac Type Severity Reaction Status Date / Time No Known Allergies Allergy Verified 02/14/22 11:14 Physical Exam Vitals: Vital Signs Temp Pulse Pulse Resp BP BP Pulse Ox 02/15/22 03:23 97.8 F 70 17 126/76 96 02/14/22 23:25 97.6 F 69 16 114/63 92 L 02/14/22 20:11 73 02/14/22 20:03 72 02/14/22 20:00 97.5 F L 80 18 119/68 92 L 02/14/22 18:00 98.0 F 92 18 145/75 93 L 02/14/22 17:00 97 16 119/78 96 02/14/22 16:00 131 H 16 111/84 93 L 02/14/22 15:05 144 H 16 123/77 95 02/14/22 15:00 142 H 18 131/91 94 L 02/14/22 14:00 107 H 18 113/85 93 L 02/14/22 13:35 140 H 16 117/81 94 L 02/14/22 13:00 135 H 18 92/52 93 L 02/14/22 12:00 149 H 16 57/38 94 L 02/14/22 11:00 98 102/84 94 L 02/14/22 10:00 113 H 130/90 94 L 02/14/22 09:06 129 H 86/62 02/14/22 08:41 151 H 18 02/14/22 08:35 101 H 18 Intake and Output 02/14/22 02/15/22 02/15/22 22:59 06:59 14:59 Intake Total 324.333 Output Total 200 250 Balance 124.333 -250 Intake: Intake, IV Titration 84.333 Amount Diltiazem 125 mg In 84.333 Sodium Chloride 0.9% 100 ml @ 5 MG/HR 5 mls/hr IV .Q24H [facility] Rx#:[id number] Oral 240 Output: Urine 200 250 Other: Voiding Method Toilet Toilet # Voids 1 1 Weight 89.811 kg 88.5 kg Results 02/15/22 05:38 02/15/22 05:38 Cardiac Enzymes 02/14/22 02/14/22 Range/Units 09:05 09:05 AST 20 (17-59) U/L Troponin I <0.012 (0.000-0.034) ng/mL Coagulation 02/14/22 Range/Units 09:05 PT 10.2 (9.0-12.0) sec APTT 21.9 L (22.0-30.0) sec CBC 02/14/22 02/14/22 02/15/22 Range/Units 07:43 16:14 05:38 WBC 7.9 5.6 7.9 (3.8-10.6) k/uL RBC 5.22 5.26 4.90 (4.30-5.90) m/uL Hgb 14.2 14.3 14.1 (13.0-17.5) gm/dL Hct 45.2 45.4 43.2 (39.0-53.0) % Plt Count 323 335 340 (150-450) k/uL Comprehensive Metabolic Panel 02/14/22 02/14/22 02/15/22 Range/Units 09:05 16:14 05:38 Sodium 137 136 L 138 (137-145) mmol/L Potassium 4.7 4.1 3.9 (3.5-5.1) mmol/L Chloride 105 103 105 (98-107) mmol/L Carbon Dioxide 22 20 L 19 L (22-30) mmol/L BUN 23 H 26 H 34 H (9-20) mg/dL Creatinine 0.99 1.08 1.02 (0.66-1.25) mg/dL Glucose 144 H 243 H 220 H (74-99) mg/dL Calcium 9.7 9.5 9.7 (8.4-10.2) mg/dL AST 20 (17-59) U/L ALT 23 (4-49) U/L Alkaline Phosphatase 157 H (38-126) U/L Total Protein 6.5 (6.3-8.2) g/dL Albumin 3.6 (3.5-5.0) g/dL Current Medications Generic Name Dose Route Start Last Admin Trade Name Bipin PRN Reason Stop Dose Admin Acetaminophen 650 mg 02/14/22 14:53 Acetaminophen Tab 325 Mg Tab PO Q4HR PRN Mild Pain or Fever > 100.5 Albuterol/Ipratropium 3 ml 02/14/22 16:00 02/14/22 19:55 Ipratropium-Albuterol 3 Ml Neb INHALATION 3 ml RT-QID DANELLE Administration Atorvastatin Calcium 20 mg 02/14/22 21:00 02/14/22 19:55 Atorvastatin 20 Mg Tab PO 20 mg HS DANELLE Administration Budesonide/Formoterol Fumarate 2 puff 02/14/22 20:00 02/14/22 19:55 Symbicort 80-4.5 Mcg Inhaler INHALATION 2 puff RT-BID DANELLE Administration Calcium Carbonate 1 each 02/14/22 21:00 02/14/22 19:56 Calcium Carb-Vit D 500 Mg-5 Mcg Tab PO 1 each BID DANELLE Administration Cholecalciferol 50 mcg 02/15/22 09:00 Cholecalciferol 25 Mcg (1000 Iu) Tablet PO DAILY DANELLE Dextrose/Water 25 ml 02/14/22 19:28 Dextrose 50% Syringe 50 Ml IVP PER PROTOCOL PRN Hypoglycemia Protocol Dextrose/Water 50 ml 02/14/22 19:28 Dextrose 50% Syringe 50 Ml IVP PER PROTOCOL PRN Hypoglycemia Protocol Furosemide 40 mg 02/15/22 09:00 Furosemide 10 Mg/Ml 4 Ml Vial IV DAILY DANELLE Diltiazem HCl 125 mg/ Sodium 125 mls @ 5 mls/hr 02/14/22 09:00 02/14/22 19:56 Chloride IV 5 mg/hr .Q24H DANELLE 5 mls/hr Administration 5 MG/HR Azithromycin 500 mg/ Sodium 250 mls @ 250 mls/hr 02/14/22 16:00 02/14/22 17:26 Chloride IVPB 02/16/22 09:59 250 mls/hr DAILY DANELLE Administration Protocol Insulin Aspart 0 unit 02/14/22 21:00 02/15/22 06:14 Insulin Aspart (Novolog) 100 Unit/Ml Vial SQ 4 unit ACHS DANELLE Administration Protocol Leflunomide 20 mg 02/15/22 09:00 Leflunomide 20 Mg Tab PO DAILY [facility] Meloxicam 15 mg 02/15/22 09:00 Meloxicam 7.5 Mg Tab PO DAILY [facility] Methylprednisolone Sodium Succinate 60 mg 02/14/22 18:00 02/15/22 06:15 Methylprednisolone Sod Succi 125 Mg/2 Ml Vial IV 60 mg Q6HR DANELLE Administration Metoprolol Tartrate 25 mg 02/14/22 21:00 02/14/22 19:56 Metoprolol Tartrate 25 Mg Tab PO 25 mg BID DANELLE Administration Naloxone HCl 0.2 mg 02/14/22 14:53 Naloxone 0.4 Mg/Ml 1 Ml Vial IVP Q2M PRN Opioid Reversal Pantoprazole Sodium 40 mg 02/15/22 07:30 02/15/22 03:56 Pantoprazole 40 Mg Tablet PO Not Given AC-BRKFST [facility] Potassium Chloride 10 meq 02/15/22 09:00 Potassium Chloride Er 10 Meq Tab.Er.Prt PO DAILY [facility] Tamsulosin HCl 0.4 mg 02/14/22 21:00 02/14/22 19:55 Tamsulosin 0.4 Mg Cap.Er.24h PO 0.4 mg HS DANELLE Administration Intake and Output 02/14/22 02/15/22 02/15/22 22:59 06:59 14:59 Intake Total 324.333 Output Total 200 250 Balance 124.333 -250 Intake: Intake, IV Titration 84.333 Amount Diltiazem 125 mg In 84.333 Sodium Chloride 0.9% 100 ml @ 5 MG/HR 5 mls/hr IV .Q24H [facility] Rx#:[id number] Oral 240 Output: Urine 200 250 Other: Voiding Method Toilet Toilet # Voids 1 1 Weight 89.811 kg 88.5 kg 02/15/22 05:38 02/15/22 05:38
[2022-02-15] MEDS: LEFLUNOMIDE 20 MG TAB PO SCH (10:04)
--- NOTE | 2022-02-15 10:18 | US ---
EXAMINATION TYPE: US chest DATE OF EXAM: 02/15/2022 COMPARISON: NONE CLINICAL HISTORY: pleural Effusion. SOB TECHNIQUE: Targeted ultrasound of the posterior lower bilateral EXAM MEASUREMENTS: Right Pleural Effusion pocket size: 7.8 cm Right skin surface to fluid distance: 4.1 cm Left Pleural Effusion pocket size: 0 cm Right side marked for possible thoracentesis outside the dept. Left side NOT marked Pulmonologists are able to review the images in the patient?s EMR. IMPRESSIONS: Right pleural effusion
[2022-02-15 10:26] LABS: T4, Free (Free Thyroxine) 1.59 ng/dL (0.78-2.19)
[2022-02-15 11:52] LABS: Glucose,Whole Blood 213 mg/dL (70-110)
[2022-02-15 16:48] LABS: Glucose,Whole Blood 305 mg/dL (70-110)
[2022-02-15 19:59] LABS: Glucose,Whole Blood 294 mg/dL (70-110)
[2022-02-15] MEDS: TAMSULOSIN 0.4 MG CAP.ER.24H PO SCH (21:40)
[2022-02-15] MEDS: ATORVASTATIN 20 MG TAB PO SCH (21:40)
--- NOTE | 2022-02-16 00:28 | P.CONS ---
History of Present Illness - Reason for Consult Consult date: 02/15/22 melanoma Requesting physician: Sal Wilkes - Chief Complaint SOB,BOTELLO - History of Present Illness Mr Quintanilla is a pleasant male pt of Dr. Maravilla initially seen in consult at [facility] on 09/25/14. He had been admitted 09/05 acute onset of rt lower chest pain with CTA showing a possible small subsegmental PE. A repeat CTA was negative, and the pt was discharged with treatment for possible pneumonia/pleurisy. He was readmitted on 09/23/14 with new onset rt lower chest pain and SOB, with CTA now confirming a large RLL PE. He was started on heparin and transitioned to coumadin at discharge. No provoking factor was identified. He has a Hx bilateral lung nodules being followed by Pulmonary with no change. CT A/P in the hospital was negative for any evidence of malignancy. He was seen for his 1st OV on 10/18/14. Hypercoagulable w/u was ordered, which was heterozygous positive for the Prothrombin gene mutation. He continued on coumadin with good tolerance. Recommended long-term anticoagulation, treatment was discontinued by his PCP in 2015. Pt referred back 02/01/22 for new melanoma diagnosis. He noticed a hyperpigmented mole in the left supraglottic area initially in 06/11, progressively increased in size, developed some ulceration on its surface with intermittent bleeding. Shave biopsy on 12/21/21, along with biopsies of other lesions. The left supraclavicular lesion revealed nodular melanoma with a depth of at least 2.5 mm, Jer's level IV with ulcerations present. Mitotic figures numbered 9. CT neck, chest 01/02/22. This showed multiple stable pulmonary nodules, with a dominant right upper lobe nodule measuring 1.5 cm. These were unchanged since 11/08. CT soft tissue of the neck showed a 3 x 1.5 x 2 cm lesion over the left shoulder, as well as 2 discrete pathologic lymph nodes in the supraclavicular fossa that were felt to be suspicious. Currently pending staging studies at [facility] in [place]. He does have rheumatoid arthritis, and is on active treatment with leflunomide, and prednisone 5 mg Pt is currently admitted with progressive SOB on exertion x 2 days, he could no longer ambulate to the bathroom. Denies fever, cough, recent illness, he is not on blood thinners or asa. His rt ax incision site is sore. Review of Systems 10 point ROS is neg except as stated in HPI Past Medical History Past Medical History: Cancer, Eye Disorder, Prostate Disorder, Pulmonary Embolus (PE), Rheumatoid Arthritis (RA) Additional Past Medical History / Comment(s): 2014 R sided PE, bilateral chronic lung nodules, "leaky heart valve", BPH, skin cancer (melanoma) with removals, malignant colon polyps removed, headaches since CHI, bilateral cataracts with removal. History of Any Multi-Drug Resistant Organisms: None Reported Past Surgical History: Appendectomy, Cholecystectomy, Heart Catheterization, Joint Replacement, Orthopedic Surgery Additional Past Surgical History / Comment(s): R knee arthroscopy, bilateral total knee arthroplasties, R shoulder rotator cuff repair, L knee replacement, bilateral elbow surgery, R hand partial amputation d/t injury, colonoscopy with 2 cancerous polypectomies, skin cancer removed, EGD Past Anesthesia/Blood Transfusion Reactions: No Reported Reaction Additional Past Anesthesia/Blood Transfusion Reaction / Comm: Pt has never recieved blood. Past Psychological History: No Psychological Hx Reported Additional Psychological History / Comment(s): Pt resides with his spouse. He is independent. Smoking Status: Former smoker Past Alcohol Use History: None Reported Past Drug Use History: None Reported - Past Family History Son(s) Family Medical History: Deep Vein Thrombosis (DVT) Father Family Medical History: Cancer Additional Family Medical History / Comment(s): Father of lymphoma at age 70 yrs. Mother Family Medical History: Cancer Additional Family Medical History / Comment(s): Mother had breast cancer. She at age 88yrs. Medications and Allergies Home Medications Medication Instructions Recorded Confirmed Type Atorvastatin [Lipitor] 20 mg PO HS 11/25/18 02/14/22 History Meloxicam [Mobic] 15 mg PO DAILY 01/21/20 02/14/22 History predniSONE 5 mg PO DAILY 01/21/20 02/14/22 History Furosemide [Lasix] 20 mg PO AC-BRKFST 03/14/20 02/14/22 History Albuterol Inhaler [Ventolin Hfa 1 puff INHALATION RT-Q4H PRN 05/01/21 02/14/22 History Inhaler] Calcium Carbonate/Vitamin D3 1 tab PO BID 05/01/21 02/14/22 History [Calcium 500-Vit D3 5 Mcg (200 Iu)] Cholecalciferol [Vitamin D3 (25 50 mcg PO DAILY 05/01/21 02/14/22 History Mcg = 1000 Iu)] Fluticasone Propion/Salmeterol 1 puff INHALATION RT-BID 05/01/21 02/14/22 History [Advair 250-50 Diskus] Omeprazole [PriLOSEC] 20 mg PO AC-BRKFST 05/01/21 02/14/22 History Potassium Chloride [Klor-Con 10 ER] 10 meq PO DAILY 05/01/21 02/14/22 History Tamsulosin [Flomax] 0.4 mg PO HS 05/01/21 02/14/22 History Leflunomide [Arava] 20 mg PO DAILY 10/30/21 02/14/22 History Albuterol Nebulized [Ventolin 2.5 mg INHALATION RT-Q4H PRN 02/14/22 02/14/22 History Nebulized] Metoprolol Tartrate [Lopressor] 25 mg PO BID 02/14/22 02/14/22 History Tiotropium 2.5 Mcg/Puff [Spiriva 2 puff INHALATION RT-DAILY 02/14/22 02/14/22 History Respimat 2.5 Mcg] metFORMIN HCL ER [Glucophage XR] 500 mg PO DAILY 02/14/22 02/14/22 History Apixaban [Eliquis] 5 mg PO BID #60 tab 02/15/22 Rx Allergies Allergy/AdvReac Type Severity Reaction Status Date / Time No Known Allergies Allergy Verified 02/14/22 11:14 Physical Exam Vitals: Vital Signs Temp Pulse Pulse Resp BP BP Pulse Ox 02/15/22 15:43 97.6 F 100 16 137/76 96 02/15/22 15:39 97 02/15/22 15:30 90 02/15/22 12:00 98.0 F 81 16 130/74 94 L 02/15/22 11:38 80 02/15/22 11:27 86 02/15/22 07:42 84 02/15/22 07:35 82 18 128/69 99 02/15/22 07:32 80 02/15/22 03:23 97.8 F 70 17 126/76 96 02/14/22 23:25 97.6 F 69 16 114/63 92 L 02/14/22 20:11 73 02/14/22 20:03 72 02/14/22 20:00 97.5 F L 80 18 119/68 92 L 02/14/22 18:00 98.0 F 92 18 145/75 93 L 02/14/22 17:00 97 16 119/78 96 Intake and Output 02/15/22 02/15/22 02/15/22 06:59 14:59 22:59 Intake Total 240 Output Total 250 200 Balance -250 40 Intake: Oral 240 Output: Urine 250 200 Other: Voiding Method Toilet Toilet Urinal # Voids 1 Weight 88.5 kg 88.1 kg - Constitutional General appearance: average body habitus, cooperative, no acute distress - EENT Eyes: anicteric sclerae, EOMI, poor dentition ENT: hearing grossly normal, normal oropharynx - Neck Neck: lymphadenopathy - Respiratory Respiratory: right: other (RML, RLL absent) - Cardiovascular Rhythm: irregularly irregular Heart sounds: normal: S1, S2 Abnormal Heart Sounds: no systolic murmur, no diastolic murmur, no rub, no S3 Gallop, no S4 Gallop, no click, no other leg Peripheral Edema: bilateral: None - Gastrointestinal General gastrointestinal: no absent bowel sounds, no decreased bowel sounds, no distended, no hepatomegaly, no hyperactive bowel sounds, normal bowel sounds, no organomegaly, no rigid, no scaphoid, soft, no splenomegaly, no tenderness, no umbilical hernia, no ventral hernia - Integumentary Mult skin lesions - Neurologic Neurologic: CNII-XII intact - Musculoskeletal Musculoskeletal: strength equal bilaterally - Psychiatric Psychiatric: A&O x's 3, appropriate affect, intact judgment & insight Results CBC & Chem 7: 02/15/22 05:38 02/15/22 05:38 Labs: Abnormal Lab Results - Last 24 Hours (Table) 02/14/22 02/14/22 02/14/22 Range/Units 16:14 16:14 19:47 Lymphocytes # 0.9 L (1.0-4.8) k/uL Sodium 136 L (137-145) mmol/L Carbon Dioxide 20 L (22-30) mmol/L BUN 26 H (9-20) mg/dL Glucose 243 H (74-99) mg/dL POC Glucose (mg/dL) 301 H (70-110) mg/dL TSH (0.465-4.680) mIU/L 02/14/22 02/15/22 02/15/22 Range/Units 20:38 05:38 05:38 Lymphocytes # (1.0-4.8) k/uL Sodium (137-145) mmol/L Carbon Dioxide 19 L (22-30) mmol/L BUN 34 H (9-20) mg/dL Glucose 220 H (74-99) mg/dL POC Glucose (mg/dL) 236 H (70-110) mg/dL TSH 0.020 L (0.465-4.680) mIU/L 02/15/22 02/15/22 Range/Units 06:06 11:44 Lymphocytes # (1.0-4.8) k/uL Sodium (137-145) mmol/L Carbon Dioxide (22-30) mmol/L BUN (9-20) mg/dL Glucose (74-99) mg/dL POC Glucose (mg/dL) 211 H 213 H (70-110) mg/dL TSH (0.465-4.680) mIU/L Chest x-ray: report reviewed CT scan - chest: report reviewed Assessment and Plan (1) SOB (shortness of breath) Current Visit: Yes Status: Acute Priority: High Code(s): R06.02 - SHORTNESS OF BREATH SNOMED Code(s): 763226568 (2) Recurrent right pleural effusion Current Visit: Yes Status: Acute Priority: High Code(s): J90 - PLEURAL EFFUSION, NOT ELSEWHERE CLASSIFIED SNOMED Code(s): 73313049 (3) Melanoma Current Visit: Yes Status: Acute Priority: High Code(s): C43.9 - MALIGNANT MELANOMA OF SKIN, UNSPECIFIED SNOMED Code(s): 693996688 Plan: Admitted with SOB, no PE, has right pl effusion, marked for thoracentesis. Fluid will be sent for cytology, culture, LHD, glucose. Melanoma. Staging scans pending, treatment plan pending. Will try to get scans done locally for pt. F/U Dr. Maravilla. Doctor attests: I performed a history and physical examination of this patient, developed impression and plan of care. Discussed with dictator. I agree with dictators note, documented as a scribe.
[2022-02-16 06:05] LABS: Glucose,Whole Blood 213 mg/dL (70-110)
[2022-02-16 06:23] LABS: Basophils % (A) 0 %; Eosinophils % (A) 0 %; HCT 42.1 % (39.0-53.0); Lymphocytes % (A) 9 %; MCH 26.9 pg (25.0-35.0); MCHC 30.8 g/dL (31.0-37.0); MCV 87.1 fL (80.0-100.0); Monocytes # (A) 0.6 k/uL (0-1.0); Monocytes % (A) 5 %; Neutrophils # (A) 9.9 k/uL (1.3-7.7); Neutrophils % (A) 85 %; Platelet Count 342 k/uL (150-450); RBC 4.83 m/uL (4.30-5.90); RDW 14.3 % (11.5-15.5); WBC 11.6 k/uL (3.8-10.6)
[2022-02-16] MEDS: INSULIN ASPART (NovoLOG) 100 UNIT/ML VIAL SQ SCH ×4 (06:32→20:39)
[2022-02-16] MEDS: PANTOPRAZOLE 40 MG TABLET PO SCH (06:32)
[2022-02-16 06:46] LABS: Magnesium 2.4 mg/dL (1.6-2.3); Potassium 4.3 mmol/L (3.5-5.1)
[2022-02-16] MEDS: IPRATROPIUM-ALBUTEROL 3 ML NEB INHALATION SCH ×4 (08:38→19:59)
[2022-02-16] MEDS: SYMBICORT 80-4.5 MCG INHALER INHALATION SCH ×2 (08:38→19:59)
[2022-02-16] MEDS ORDERED: ENOXAPARIN 40 MG/0.4 ML SYRINGE SQ SCH (09:00)
[2022-02-16] MEDS: CALCIUM CARB-VIT D 500 MG-5 MCG TAB PO SCH ×2 (09:24→20:39)
[2022-02-16] MEDS: POTASSIUM CHLORIDE ER 10 MEQ TAB.ER.PRT PO SCH (09:24)
[2022-02-16] MEDS: METOPROLOL TARTRATE 25 MG TAB PO SCH ×2 (09:24→20:39)
[2022-02-16] MEDS: MELOXICAM 7.5 MG TAB PO SCH (09:25)
[2022-02-16] MEDS: FUROSEMIDE 10 MG/ML 4 ML VIAL IV SCH (09:26)
[2022-02-16] MEDS: LEFLUNOMIDE 20 MG TAB PO SCH (09:27)
[2022-02-16] MEDS: methylPREDNISolone SOD SUCCI 40 MG/ML 1 ML VIAL IV SCH (09:27)
--- NOTE | 2022-02-16 10:26 | P.CNPUL ---
History of Present Illness Consult date: 02/16/22 Reason for consult: dyspnea, cough Chief complaint: Shortness of breath History of present illness: Patient is a 77-year-old male with no prior medical history of smoking and nicotine abuse patient presented into the hospital with increasing shortness of breath. Patient has extensive complicated history it appears that back in 2014 has a pulmonary embolism and pneumonia was placed on Coumadin after heparin, patient was followed by Dr. Mendenhall for for extended period time for bilateral nodules evidentially for unclear reason not seeing them anymore. Patient is positive for prothrombin gene mutation has been on Coumadin all along patient was seen a few months ago with a right-sided pleural effusion advise thorac entesis patient declined as he wants to go to [facility] for further evaluation of a lump in the neck biopsy came back positive for melanoma. Patient continued to have stable pulmonary nodules with a right upper lobe nodule 1.5 cm remains unchanged patient getting biopsies and follow up at [facility]. Computed tomography scan now shows persistent pulmonary nodules and moderate to large right-sided pleural effusion appears to have anterior component as well suspicion of being organized. Oncology wants thoracentesis to be done as well as cardiology. Review of Systems All systems: negative Past Medical History Past Medical History: Cancer, Eye Disorder, Prostate Disorder, Pulmonary Embolus (PE), Rheumatoid Arthritis (RA) Additional Past Medical History / Comment(s): 2015 R sided PE, bilateral chronic lung nodules, "leaky heart valve", BPH, skin cancer (melanoma) with removals, m alignant colon polyps removed, headaches since CHI, bilateral cataracts with removal. History of Any Multi-Drug Resistant Organisms: None Reported Past Surgical History: Appendectomy, Cholecystectomy, Heart Catheterization, Joint Replacement, Orthopedic Surgery Additional Past Surgical History / Comment(s): R knee arthroscopy, bilateral total knee arthroplasties, R shoulder rotator cuff repair, L knee replacement, bilateral elbow surgery, R hand partial amputation d/t injury, colonoscopy with 2 cancerous polypectomies, skin cancer removed, EGD Past Anesthesia/Blood Transfusion Reactions: No Reported Reaction Additional Past Anesthesia/Blood Transfusion Reaction / Comment(s): Pt has never recieved blood. Past Psychological History: No Psychological Hx Reported Additional Psychological History / Comment(s): Pt resides with his spouse. He is independent. Smoking Status: Former smoker Past Alcohol Use History: None Reported Past Drug Use History: None Reported - Past Family History Son(s) Family Medical History: Deep Vein Thrombosis (DVT) Father Family Medical History: Cancer Additional Family Medical History / Comment(s): Father of lymphoma at age 70 yrs. Mother Family Medical History: Cancer Additional Family Medical History / Comment(s): Mother had breast cancer. She at age 88yrs. Medications and Allergies Home Medications Medication Instructions Recorded Confirmed Type Atorvastatin [Lipitor] 20 mg PO HS 11/25/18 02/14/22 History Meloxicam [Mobic] 15 mg PO DAILY 01/21/20 02/14/22 History predniSONE 5 mg PO DAILY 01/21/20 02/14/22 History Furosemide [Lasix] 20 mg PO AC-BRKFST 03/14/20 02/14/22 History Albuterol Inhaler [Ventolin Hfa 1 puff INHALATION RT-Q4H PRN 05/01/21 02/14/22 History Inhaler] Calcium Carbonate/Vitamin D3 1 tab PO BID 05/01/21 02/14/22 History [Calcium 500-Vit D3 5 Mcg (200 Iu)] Cholecalciferol [Vitamin D3 (25 50 mcg PO DAILY 05/01/21 02/14/22 History Mcg = 1000 Iu)] Fluticasone Propion/Salmeterol 1 puff INHALATION RT-BID 05/01/21 02/14/22 History [Advair 250-50 Diskus] Omeprazole [PriLOSEC] 20 mg PO AC-BRKT 05/01/21 02/14/22 History Potassium Chloride [Klor-Con 10 ER] 10 meq PO DAILY 05/01/21 02/14/22 History Tamsulosin [Flomax] 0.4 mg PO HS 05/01/21 02/14/22 History Leflunomide [Arava] 20 mg PO DAILY 10/30/21 02/14/22 History Albuterol Nebulized [Ventolin 2.5 mg INHALATION RT-Q4H PRN 02/14/22 02/14/22 History Nebulized] Metoprolol Tartrate [Lopressor] 25 mg PO BID 02/14/22 02/14/22 History Tiotropium 2.5 Mcg/Puff [Spiriva 2 puff INHALATION RT-DAILY 02/14/22 02/14/22 History Respimat 2.5 Mcg] metFORMIN HCL ER [Glucophage XR] 500 mg PO DAILY 02/14/22 02/14/22 History Apixaban [Eliquis] 5 mg PO BID #60 tab 02/15/22 Rx Allergies Allergy/AdvReac Type Severity Reaction Status Date / Time No Known Allergies Allergy Verified 02/14/22 11:14 Physical Exam Vitals: Vital Signs Temp Pulse Pulse Resp BP Pulse Ox 02/16/22 09:07 97.4 F L 106 H 17 139/83 97 02/16/22 08:52 88 02/16/22 08:40 84 02/16/22 04:00 97.4 F L 97 17 131/72 97 02/15/22 23:22 97.3 F L 97 18 125/74 97 02/15/22 20:55 97.5 F L 100 17 135/76 95 02/15/22 19:53 101 H 02/15/22 19:45 98 02/15/22 15:43 97.6 F 100 16 137/76 96 02/15/22 15:39 97 02/15/22 15:30 90 02/15/22 12:00 98.0 F 81 16 130/74 94 L 02/15/22 11:38 80 02/15/22 11:27 86 Intake and Output 02/15/22 02/16/22 02/16/22 22:59 06:59 14:59 Intake Total 114 Output Total 125 175 Balance -11 -175 Intake: Oral 114 Output: Urine 125 175 Other: Voiding Method Toilet Toilet Urinal Urinal - Constitutional General appearance: average body habitus, cooperative, disheveled, mild distress - EENT Eyes: EOMI, PERRLA ENT: normal oropharynx Ears: bilateral: normal - Neck Neck: normal ROM Carotids: bilateral: upstroke normal - Respiratory Respiratory: right: diminished, dullness - Cardiovascular Rhythm: regular Heart sounds: normal: S1, S2 - Gastrointestinal General gastrointestinal: normal bowel sounds - Integumentary Integumentary: normal turgor - Neurologic Neurologic: CNII-XII intact, focal deficits - Musculoskeletal Musculoskeletal: gait normal, generalized weakness, strength equal bilaterally - Psychiatric Psychiatric: A&O x's 3, appropriate affect, intact judgment & insight Results - Laboratory Findings CBC and BMP: 02/16/22 05:27 02/16/22 05:27 PT/INR, D-dimer PT 10.2 sec (9.0-12.0) 02/14/22 09:05 INR 0.9 (<1.2) 02/14/22 09:05 D-Dimer 1.29 mg/L FEU (<0.60) H 02/14/22 09:05 Abnormal lab findings: Abnormal Labs 02/14/22 02/14/22 02/14/22 09:05 09:05 16:14 WBC MCHC Neutrophils # Lymphocytes # 0.9 L APTT 21.9 L D-Dimer 1.29 H Sodium Carbon Dioxide BUN 23 H Glucose 144 H POC Glucose (mg/dL) Magnesium Alkaline Phosphatase 157 H TSH 02/14/22 02/14/22 02/14/22 16:14 19:47 20:38 WBC MCHC Neutrophils # Lymphocytes # APTT D-Dimer Sodium 136 L Carbon Dioxide 20 L BUN 26 H Glucose 243 H POC Glucose (mg/dL) 301 H 236 H Magnesium Alkaline Phosphatase TSH 02/15/22 02/15/22 02/15/22 05:38 05:38 06:06 WBC MCHC Neutrophils # Lymphocytes # APTT D-Dimer Sodium Carbon Dioxide 19 L BUN 34 H Glucose 220 H POC Glucose (mg/dL) 211 H Magnesium Alkaline Phosphatase TSH 0.020 L 02/15/22 02/15/22 02/15/22 11:44 16:40 19:58 WBC MCHC Neutrophils # Lymphocytes # APTT D-Dimer Sodium Carbon Dioxide BUN Glucose POC Glucose (mg/dL) 213 H 305 H 294 H Magnesium Alkaline Phosphatase TSH 02/16/22 02/16/22 02/16/22 05:27 05:27 06:04 WBC 11.6 H MCHC 30.8 L Neutrophils # 9.9 H Lymphocytes # APTT D-Dimer Sodium 136 L Carbon Dioxide BUN 43 H Glucose 190 H POC Glucose (mg/dL) 213 H Magnesium 2.4 H Alkaline Phosphatase TSH - Diagnostic Findings Chest x-ray: report reviewed, image reviewed CT scan - chest: report reviewed, image reviewed (Chest x-ray continued to show right-sided effusion, computed tomography scan of the chest negative for PE however continued to show moderate to large size pleural effusion with consolidation and bilateral nodules the largest in right upper lobe 1.1 cm size) Assessment and Plan Assessment: Right-sided pleural effusion moderate to large patient wants it to be evaluated, updated and well aware of risk and complications associated with that Right upper lobe nodule has been stable Recent diagnosis of melanoma further evaluation of metastatic disease in progress PET scan pending Possible pneumonia Acute on chronic hypoxic respiratory failure History of COPD, on November embolism, dyslipidemia Plan: Proceed with a right-sided thoracentesis ultrasound of the chest has been reviewed noted skin thicknesses in reality 2.5 cm not 4 cm Fluid will be sent for cytology culture Gram stain and biochemistry Continue antibiotics Continue supplemental oxygen Further plan of care as per clinical response of the patient Time with Patient: Greater than 30
[2022-02-16] MEDS: CHOLECALCIFEROL 25 MCG (1000 IU) TABLET PO SCH (10:35)
[2022-02-16] MEDS: AZITHROMYCIN 500 MG in SODIUM CHLORIDE 0.9% 250 ML IVPB SCH (10:35)
--- NOTE | 2022-02-16 11:24 | P.PN ---
Subjective This is a pleasant 77-year-old male past medical history significant for peripheral vascular disease, COPD, mild aortic regurgitation, dyslipidemia, former tobacco use, type 2 diabetes. He follows in the office with Dr. Rick. We have been asked to see in consultation for new onset atrial fibrillation. Patient presents to the emergency department with complaints of shortness of breath. He started to have shortness of breath that began a month ago. Over the past month, he has noted worsening dyspnea with his daily activities, symptoms of orthopnea and PND. Denies any lower extremity edema, chest pain, palpitations, lightheadedness, dizziness, syncope or near syncope. He denies history of CAD, VA, Stroke, Atrial fibrillation, heart failure. He is a former smoker quit 15-20 years ago. On admission patient was started on IV Lasix, IV steroids, IV Cardizem. Patient converted to sinus mechanism. Patient was not started on anticoagulation initially secondary to possible thoracentesis. Eliquis has been sent to pharmacy. 02/16/2022 Patient seen and examined at bedside, up in the bedside chair, no acute distress. Feeling well. Denies chest pain or shortness of breath. Plan for thoracentesis today. Anticoagulation still on hold. He is maintaining sinus mechanism, no further atrial fibrillation . Echocardiogram revealed EF 5560 % no pericardial effusion. PHYSICAL EXAMINATION Vitals 139/83, heart rate 88, afebrile, oxygen saturations 97% room air CONSTITUTIONAL: No apparent distress. HEENT: Head is normocephalic. Neck Supple No JVD. CHEST EXAMINATION: Lungs diminished, crackles in the right base to auscultation. No chest wall tenderness is noted on palpation or with deep breathing. HEART EXAMINATION: Regular rate and rhythm. S1, S2 heard. ABDOMEN: Soft, nontender. Positive bowel sounds. EXTREMITIES: 2+ peripheral pulses, no lower extremity edema and no calf tenderness. SKIN: Warm, dry NEUROLOGIC EXAMINATION: Patient is awake, alert and oriented x3. ASSESSMENT New onset paroxysmal atrial fibrillation -[id number] score 3, maintaining sinus mechanism Shortness of breath, symptoms of orthopnea Moderate/Large Right pleural effusion Multiple pulmonary nodules reported on CT chest COPD Type 2 Diabetes Dyslipidemia History of peripheral vascular disease Former smoker PLAN Anticoagulation held at this time secondary to possible thoracentesis, will check coverage for Eliquis 5mg BID, recommend starting Eliquis when ok with pulmonary after thoracentesis Metoprolol tartrate 25mg BID Transition to PO Lasix Pulmonary consulted for thoracentesis From a cardiology perspective, patient is stable, ok to discharge when cleared by primary and other consultants Follow up outpatient with Dr. Merline wagner. Nurse practitioner note has been reviewed by physician. Signing provider agrees with the documented findings, assessment, and plan of care. Objective - Vital Signs Vital signs: Vital Signs Temp 97.4 F L 02/16/22 09:07 Pulse 106 H 02/16/22 09:07 Resp 17 02/16/22 09:07 BP 139/83 02/16/22 09:07 Pulse Ox 97 02/16/22 09:07 FiO2 Intake & Output 02/15/22 02/16/22 02/16/22 18:59 06:59 18:59 Intake Total 354 Output Total 200 300 Balance 154 -300 Weight 88.1 kg Intake: Oral 354 Output: Urine 200 300 Other: Voiding Method Toilet Toilet Toilet Urinal Urinal Urinal - Labs CBC & Chem 7: 02/16/22 05:27 02/16/22 05:27 Labs: Abnormal Lab Results - Last 24 Hours (Table) 02/15/22 02/15/22 02/15/22 Range/Units 11:44 16:40 19:58 WBC (3.8-10.6) k/uL MCHC (31.0-37.0) g/dL Neutrophils # (1.3-7.7) k/uL Sodium (137-145) mmol/L BUN (9-20) mg/dL Glucose (74-99) mg/dL POC Glucose (mg/dL) 213 H 305 H 294 H (70-110) mg/dL Magnesium (1.6-2.3) mg/dL 02/16/22 02/16/22 02/16/22 Range/Units 05:27 05:27 06:04 WBC 11.6 H (3.8-10.6) k/uL MCHC 30.8 L (31.0-37.0) g/dL Neutrophils # 9.9 H (1.3-7.7) k/uL Sodium 136 L (137-145) mmol/L BUN 43 H (9-20) mg/dL Glucose 190 H (74-99) mg/dL POC Glucose (mg/dL) 213 H (70-110) mg/dL Magnesium 2.4 H (1.6-2.3) mg/dL
[2022-02-16 11:51] LABS: Glucose,Whole Blood 246 mg/dL (70-110)
[2022-02-16] MEDS ORDERED: LIDOCAINE 2% INJ 20 MG/ML (20 ML MDV) ONE (12:30)
--- NOTE | 2022-02-16 15:03 | P.PCN ---
Date of Procedure: 02/16/22 Preoperative Diagnosis: Right pleural effusion Postoperative Diagnosis: As above Procedure(s) Performed: Right thoracentesis Anesthesia: local Surgeon: Moncho Lanza Estimated Blood Loss (ml): 1 Condition: stable Disposition: floor Indications for Procedure: Right pleural effusion, recent diagnosis of melanoma, pulmonary nodule, asbestosis and history of asbestosis exposure Operative Findings: As below Description of Procedure: Patient prepared and draped in a usual fashion, patient and inform about the seizure as well as potential complications. After obtaining informed consent as well as timeout one percent lidocaine was infiltrated into the right posterior thoracic wall at eighth intercostal space gauge 24 needle was passed over the marginal rib into pleural space and the clear dark yellow pleural fluid aspirated followed by a stab incision of eighth of centimeter through the stab incision catheter in needle was passed needle was withdrawn catheter left in position and about 950 mL of bright yellow fluid aspirated patient tolerated the procedure well no complication noted, chest x-rays pending
--- NOTE | 2022-02-16 15:44 | XR ---
EXAMINATION TYPE: XR chest 1V portable DATE OF EXAM: 02/16/2022 COMPARISON: Chest x-ray 02/07/2022 HISTORY: Status post thoracentesis TECHNIQUE: Single frontal view of the chest is obtained. FINDINGS: There is interval improvement in aeration at the right lung base. No evident pneumothorax. No other significant interval change. There is persistent blunting the costophrenic angle on the rig ht. IMPRESSION: No evident complication status post right thoracentesis
--- NOTE | 2022-02-16 15:47 | P.PN ---
Subjective Progress Note Date: 02/16/22 (delayed charting seen at 0930) Patient is a 77-year-old male with known melanoma diagnosed approximately one month ago currently undergoing workup and awaiting to get PET/CT testing as well as MRI brain, rheumatoid arthritis, pulmonary embolism, and dyslipidemia who presented to the hospital for shortness of breath. He was ultimately found to have a right sided pleural effusion. He underwent thoracentesis on the afternoon of 02/16. Patient was seen and examined on the morning of 02/16. He was continuing to have some right-sided rib pain as well as some shortness of breath. He denies any nausea, vomiting, lightheadedness, dizziness. He was feeling very anxious and wanted to be discharged home. We discussed the need to continue with thoracentesis and sent for cytology. He is in agreement with plan. General: nontoxic, no distress, appears at stated age Derm: warm, dry Head: atraumatic, normocephalic, symmetric Eyes: EOMI, no lid lag, anicteric sclera Mouth: no lip lesion, mucus membranes moist Cardiovascular: S1S2 reg, no murmur, positive posterior tibial pulse bilateral, Lungs: Decreased bs on the right, no rhonchi, no rales , no accessory muscle use Abdominal: soft, nontender to palpation, no guarding, no appreciable organomegaly Ext: no gross muscle atrophy, no edema, no contractures Neuro: CN II-XI grossly intact, no focal neuro deficits Psych: Alert, oriented, appropriate affect Assessment/plan: Right-sided pleural effusion, as present in October 2021 Acute hypoxic respiratory failure -Status post thoracentesis her removal of 950 mL. Await pleural fluid testing -Pulmonary recommendations -Wean O2 as able New-onset atrial fibrillation with rapid ventricular response -[id number] score 3 -Cardiology recommendations -Start eliquist today -Continue with metoprolol 25 mg twice daily. -We'll follow up with Dr. Pyle as outpatient. Melanoma -Telemetry under the care of . Plans are for continued outpatient follow- up with/CT and MRI brain. Stable pulmonary nodules -Continue outpatient follow-up. Diabetes mellitus type 2 with hyperglycemia -A1c 6 -Metformin on hold -Suspect hyperglycemia secondary to steroids Chronic: COPD without exacerbation - stop steroids Dyslipidemia Peripheral vascular disease Initial plan was for home after thoarcentesis, however patient developed pain and was anxious about going home with pain. Will monitor overnight and asked nursing to education patient likely d/c prior to 10 AM tomorrw. Objective - Vital Signs Vital signs: Vital Signs Temp 97.3 F L 02/16/22 12:36 Pulse 92 02/16/22 12:36 Resp 17 02/16/22 12:36 BP 123/72 02/16/22 12:36 Pulse Ox 95 02/16/22 12:36 FiO2 Intake & Output 02/15/22 02/16/22 02/16/22 18:59 06:59 18:59 Intake Total 354 Output Total 200 300 Balance 154 -300 Weight 88.1 kg Intake: Oral 354 Output: Urine 200 300 Other: Voiding Method Toilet Toilet Toilet Urinal Urinal Urinal - Labs CBC & Chem 7: 02/16/22 05:27 02/16/22 05:27 Labs: Abnormal Lab Results - Last 24 Hours (Table) 02/15/22 02/15/22 02/16/22 Range/Units 16:40 19:58 05:27 WBC (3.8-10.6) k/uL MCHC (31.0-37.0) g/dL Neutrophils # (1.3-7.7) k/uL Sodium 136 L (137-145) mmol/L BUN 43 H (9-20) mg/dL Glucose 190 H (74-99) mg/dL POC Glucose (mg/dL) 305 H 294 H (70-110) mg/dL Magnesium 2.4 H (1.6-2.3) mg/dL 02/16/22 02/16/22 02/16/22 Range/Units 05:27 06:04 11:34 WBC 11.6 H (3.8-10.6) k/uL MCHC 30.8 L (31.0-37.0) g/dL Neutrophils # 9.9 H (1.3-7.7) k/uL Sodium (137-145) mmol/L BUN (9-20) mg/dL Glucose (74-99) mg/dL POC Glucose (mg/dL) 213 H 246 H (70-110) mg/dL Magnesium (1.6-2.3) mg/dL
[2022-02-16 17:11] LABS: Glucose,Whole Blood 241 mg/dL (70-110)
[2022-02-16] MEDS ORDERED: LORazepam 2 MG/ML INJ IV STA (18:22)
[2022-02-16] MEDS ORDERED: DILTIAZEM DRIP BOLUS FROM BAG 1 MG SOLN IV ONE (18:24)
[2022-02-16] MEDS ORDERED: DILTIAZEM 125 MG in SODIUM CHLORIDE 0.9% 100 ML IV SCH (18:30)
[2022-02-16 19:54] LABS: Glucose,Whole Blood 272 mg/dL (70-110)
[2022-02-16] MEDS: ATORVASTATIN 20 MG TAB PO SCH (20:39)
[2022-02-16] MEDS: DILTIAZEM 125 MG in SODIUM CHLORIDE 0.9% 100 ML IV SCH (20:39)
[2022-02-16] MEDS: TAMSULOSIN 0.4 MG CAP.ER.24H PO SCH (20:39)
[2022-02-16] MEDS: APIXABAN 5 MG TAB PO SCH (20:39)
[2022-02-16] MEDS ORDERED: INSULIN DETEMIR (LEVEMIR) 100 UNIT/ML SYR SQ SCH (21:00)
[2022-02-17 00:26] LABS: Appearance,BF Cloudy
[2022-02-17 04:07] LABS: LDH, Body Fluid Source Pleural Fluid; T. Protein, Body Fluid Source Pleural Fluid; Total Protein, Body Fluid 3620 mg/dL
[2022-02-17 04:27] VITALS: TEMP 98.3
[2022-02-17 05:56] LABS: Glucose,Whole Blood 156 mg/dL (70-110)
[2022-02-17] MEDS: INSULIN ASPART (NovoLOG) 100 UNIT/ML VIAL SQ SCH ×2 (06:22→12:33)
[2022-02-17] MEDS: PANTOPRAZOLE 40 MG TABLET PO SCH (06:23)
[2022-02-17] MEDS: IPRATROPIUM-ALBUTEROL 3 ML NEB INHALATION SCH ×3 (07:43→15:22)
[2022-02-17] MEDS: SYMBICORT 80-4.5 MCG INHALER INHALATION SCH (07:43)
[2022-02-17 08:03] LABS: Basophils % (A) 0 %; Eosinophils % (A) 0 %; HCT 39.8 % (39.0-53.0); HGB 12.3 gm/dL (13.0-17.5); Lymphocytes # (A) 0.8 k/uL (1.0-4.8); Lymphocytes % (A) 10 %; MCH 27.2 pg (25.0-35.0); MCV 87.6 fL (80.0-100.0); Mean Platelet Volume 8.1; Monocytes # (A) 0.7 k/uL (0-1.0); Monocytes % (A) 8 %; Neutrophils # (A) 6.5 k/uL (1.3-7.7); Neutrophils % (A) 81 %; Platelet Count 312 k/uL (150-450); RBC 4.54 m/uL (4.30-5.90); RDW 14.2 % (11.5-15.5)
[2022-02-17 08:24] LABS: Calcium 9.4 mg/dL (8.4-10.2); Magnesium 2.5 mg/dL (1.6-2.3); Phosphorus 2.9 mg/dL (2.5-4.5); Potassium 4.2 mmol/L (3.5-5.1)
[2022-02-17] MEDS: LEFLUNOMIDE 20 MG TAB PO SCH (08:49)
[2022-02-17] MEDS: FUROSEMIDE 10 MG/ML 4 ML VIAL IV SCH (08:49)
[2022-02-17] MEDS: APIXABAN 5 MG TAB PO SCH (08:49)
[2022-02-17] MEDS: CALCIUM CARB-VIT D 500 MG-5 MCG TAB PO SCH (08:50)
[2022-02-17] MEDS: MELOXICAM 7.5 MG TAB PO SCH (08:50)
[2022-02-17] MEDS: METOPROLOL TARTRATE 25 MG TAB PO SCH (08:50)
[2022-02-17] MEDS: CHOLECALCIFEROL 25 MCG (1000 IU) TABLET PO SCH (08:50)
[2022-02-17] MEDS: POTASSIUM CHLORIDE ER 10 MEQ TAB.ER.PRT PO SCH (08:55)
[2022-02-17 08:58] VITALS: RESP 16
--- NOTE | 2022-02-17 09:49 | P.PN ---
Subjective Progress Note Date: 02/17/22 Principal diagnosis: Right-sided pleural effusion moderate to large patient wants it to be evaluated, updated and well aware of risk and complications associated with that Right upper lobe nodule has been stable Recent diagnosis of melanoma further evaluation of metastatic disease in progress PET scan pending Possible pneumonia Acute on chronic hypoxic respiratory failure History of COPD, on November embolism, dyslipidemia 02/17/2022, patient seen eval examined during the rounds labs reviewed medications reviewed care plan discussed, Estrace status remains stable patient is on room air breathing comfortably denies any chest pain status post thoracentesis and 950 mL of fluid from the right side has been removed postprocedure x-ray and diminish in amount of fluid as well as no complication noted, pleural fluid cultures are pending, Gram stain is negative, fungal and ba cterial pending, fluid appears to be exudative cytology is pending Patient is a 77-year-old male with no prior medical history of smoking and nicotine abuse patient presented into the hospital with increasing shortness of breath. Patient has extensive complicated history it appears that back in 2014 has a pulmonary embolism and pneumonia was placed on Coumadin after heparin, patient was followed by Dr. Mendenhall for for extended period time for bilateral nodules evidentially for unclear reason not seeing them anymore. Patient is positive for prothrombin gene mutation has been on Coumadin all along patient was seen a few months ago with a right-sided pleural effusion advise thoracentesis patient declined as he wants to go to [facility] for further evaluation of a lump in the neck biopsy came back positive for melanoma. Patient continued to have stable pulmonary nodules with a right upper lobe nodule 1.5 cm remains unchanged patient getting biopsies and follow up at [facility]. Computed tomography scan now shows persistent pulmonary nodules and moderate to large right-sided pleural effusion appears to have anterior component as well suspicion of being organized. Oncology wants thoracentesis to be done as well as cardiology. Objective - Vital Signs Vital signs: Vital Signs Temp 98.3 F 02/17/22 04:00 Pulse 98 02/17/22 08:00 Resp 16 02/17/22 08:00 BP 135/61 02/17/22 08:00 Pulse Ox 98 02/17/22 08:00 FiO2 Intake & Output 02/16/22 02/17/22 02/17/22 18:59 06:59 18:59 Intake Total 240 240 180 Balance 240 240 180 Intake: Oral 240 240 180 Other: Voiding Method Toilet Urinal # Voids 2 - Exam - Constitutional General appearance: average body habitus, cooperative, disheveled, mild distress - EENT Eyes: EOMI, PERRLA ENT: normal oropharynx Ears: bilateral: normal - Neck Neck: normal ROM Carotids: bilateral: upstroke normal - Respiratory Respiratory: right: Significant reduction in diminished, dullness and improved breath sounds compared to prior exam - Cardiovascular Rhythm: regular Heart sounds: normal: S1, S2 - Gastrointestinal General gastrointestinal: normal bowel sounds - Integumentary Integumentary: normal turgor - Neurologic Neurologic: CNII-XII intact, focal deficits - Musculoskeletal Musculoskeletal: gait normal, generalized weakness, strength equal bilaterally - Psychiatric Psychiatric: A&O x's 3, appropriate affect, intact judgment & insight - Labs CBC & Chem 7: 02/17/22 07:17 02/17/22 07:17 Labs: Abnormal Lab Results - Last 24 Hours (Table) 02/16/22 02/16/22 02/16/22 Range/Units 11:34 16:44 19:53 Hgb (13.0-17.5) gm/dL Lymphocytes # (1.0-4.8) k/uL BUN (9-20) mg/dL Glucose (74-99) mg/dL POC Glucose (mg/dL) 246 H 241 H 272 H (70-110) mg/dL Magnesium (1.6-2.3) mg/dL 02/17/22 02/17/22 02/17/22 Range/Units 05:54 07:17 07:17 Hgb 12.3 L (13.0-17.5) gm/dL Lymphocytes # 0.8 L (1.0-4.8) k/uL BUN 43 H (9-20) mg/dL Glucose 142 H (74-99) mg/dL POC Glucose (mg/dL) 156 H (70-110) mg/dL Magnesium 2.5 H (1.6-2.3) mg/dL Microbiology - Last 24 Hours (Table) 02/16/22 14:49 Gram Stain - Preliminary Pleural Fluid Body Fluid Culture - Preliminary 02/16/22 14:49 Acid Fast Bacilli Culture - Preliminary Pleural Fluid 02/16/22 14:49 Fungal Culture - Preliminary Pleural Fluid 02/16/22 14:49 Anaerobic Culture - Preliminary Pleural Fluid Assessment and Plan Assessment: Right-sided exudative pleural effusion moderate to large status post thoracentesis cultures pending cytology pending t Right upper lobe nodule has been stable Recent diagnosis of melanoma further evaluation of metastatic disease in progress PET scan pending Possible pneumonia Acute on chronic hypoxic respiratory failure History of COPD, on November embolism, dyslipidemia Plan: Status post right thoracentesis 9 50 mL of bright yellow pleural fluid removed tolerated well Pending cytology culture Gram stain and biochemistry Continue antibiotics Continue supplemental oxygen as needed Further plan of care as per clinical response of the patient Time with Patient: Greater than 30
[2022-02-17 11:40] LABS: Glucose,Whole Blood 150 mg/dL (70-110)
[2022-02-17 12:36] VITALS: BP 128/73
--- NOTE | 2022-02-17 14:16 | P.DS ---
Providers Date of admission: 02/14/22 14:55 Expected date of discharge: 02/17/22 Attending physician: Sal Wilkes MD Consults: 02/14/22 14:53 Consult Physician Routine Consulting Provider: Sam Rick Consult Reason/Comments: Rapid atrial fibrillation Do you want consulting provider notified?: Yes 02/14/22 15:46 Consult Physician Routine Consulting Provider: Moncho Lanza Consult Reason/Comments: seen by him before Do you want consulting provider notified?: Yes 02/15/22 08:36 Consult Physician Routine Consulting Provider: Jordin Maravilla Consult Reason/Comments: melanoma; pulm nodules Do you want consulting provider notified?: Yes Primary care physician: [facility] Course: Right-sided pleural effusion, as present in October 2021 New-onset atrial fibrillation with rapid ventricular response Melanoma Stable pulmonary nodules Diabetes mellitus type 2 with hyperglycemia COPD without exacerbation Dyslipidemia Peripheral vascular disease Patient is a 77-year-old male with known melanoma diagnosed approximately one month ago currently undergoing workup and awaiting to get PET/CT testing as well as MRI brain, rheumatoid arthritis, pulmonary embolism, and dyslipidemia who presented to the hospital for shortness of breath. He was ultimately found to have a right sided pleural effusion. He underwent thoracentesis on the afternoon of 02/16. Patient's hospitalization was also complicated by the new onset of atrial fibrillation with rapid ventricular response. Patient was started on Apixiban, as well as metoprolol under cardiology consultation. These medications control the patient's heart rate well. Patient was subsequently discharged with cardiology, oncology follow-up. Pleural fluid cytology appears exudative with cytology pending at time of discharge. I spent 32 minutes coordinating this discharge, discharge date 02/17. Gen: awake, alert HEENT: normocephalic, atraumatic, good hearing acuity, moist mucous membranes Resp: good air exchange, breathing comfortably with no accessory muscle use CVS: good distal perfusion x 4, GI: soft, NTTP, ND : no SPT, no CVAT, plasencia catheter not present MSK: no pitting edema, no clubbing Neuro: non-focal, moving all extremities Psych: cooperative, euthymic mood Patient Condition at Discharge: Good Plan - Discharge Summary Discharge Rx Participant: No New Discharge Prescriptions: New Apixaban [Eliquis] 5 mg PO BID #60 tab Acetaminophen Tab [Tylenol] 650 mg PO Q4HR PRN tab PRN Reason: Mild Pain Or Fever > 100.5 Continue Atorvastatin [Lipitor] 20 mg PO HS Meloxicam [Mobic] 15 mg PO DAILY Furosemide [Lasix] 20 mg PO -BRFST Fluticasone Propion/Salmeterol [Advair 250-50 Diskus] 1 puff INHALATION RT- BID Cholecalciferol [Vitamin D3 (25 Mcg = 1000 Iu)] 50 mcg PO DAILY Albuterol Nebulized [Ventolin Nebulized] 2.5 mg INHALATION RT-Q4H PRN PRN Reason: Shortness Of Breath metFORMIN HCL ER [Glucophage XR] 500 mg PO DAILY Calcium Carbonate/Vitamin D3 [Calcium 500-Vit D3 5 Mcg (200 Iu)] 1 tab PO BID Albuterol Inhaler [Ventolin Hfa Inhaler] 1 puff INHALATION RT-Q4H PRN PRN Reason: Shortness Of Breath Tamsulosin [Flomax] 0.4 mg PO HS Potassium Chloride [Klor-Con 10 ER] 10 meq PO DAILY [facility]epraz[facility] Leflunomide [Arava] 20 mg PO DAILY Tiotropium 2.5 Mcg/Puff [Spiriva Respimat 2.5 Mcg] 2 puff INHALATION RT-DAILY Metoprolol Tartrate [Lopressor] 25 mg PO BID #60 tab Discontinued predniSONE 5 mg PO DAILY Discharge Medication List Atorvastatin [Lipitor] 20 mg PO HS 11/25/18 [History] Meloxicam [Mobic] 15 mg PO DAILY 01/21/20 [History] Furosemide [Lasix] 20 mg PO -BRKFST 03/14/20 [History] Albuterol Inhaler [Ventolin Hfa Inhaler] 1 puff INHALATION RT-Q4H PRN 05/01/21 [History] Calcium Carbonate/Vitamin D3 [Calcium 500-Vit D3 5 Mcg (200 Iu)] 1 tab PO BID 05/01/21 [History] Cholecalciferol [Vitamin D3 (25 Mcg = 1000 Iu)] 50 mcg PO DAILY 05/01/21 [History] Fluticasone Propion/Salmeterol [Advair 250-50 Diskus] 1 puff INHALATION RT-BID 05/01/21 [History] Omeprazole [PriLOSEC] 20 mg PO -BRKFST 05/01/21 [History] Potassium Chloride [Klor-Con 10 ER] 10 meq PO DAILY 05/01/21 [History] Tamsulosin [Flomax] 0.4 mg PO HS 05/01/21 [History] Leflunomide [Arava] 20 mg PO DAILY 10/30/21 [History] Albuterol Nebulized [Ventolin Nebulized] 2.5 mg INHALATION RT-Q4H PRN 02/14/22 [History] Tiotropium 2.5 Mcg/Puff [Spiriva Respimat 2.5 Mcg] 2 puff INHALATION RT-DAILY 02/14/22 [History] metFORMIN HCL ER [Glucophage XR] 500 mg PO DAILY 02/14/22 [History] Apixaban [Eliquis] 5 mg PO BID #60 tab 02/15/22 [Rx] Acetaminophen Tab [Tylenol] 650 mg PO Q4HR PRN tab 02/17/22 [Rx] Metoprolol Tartrate [Lopressor] 25 mg PO BID #60 tab 02/17/22 [Rx] Follow up Appointment(s)/Referral(s): Jordin Maravilla MD [STAFF PHYSICIAN] - 03/09/22 8:30 am (Appt with Dr. Maravilla, 2nd floor, at the [facility] building on the [facility]) Moncho Lanza MD [STAFF PHYSICIAN] - 1 Week Sam Rick MD [STAFF PHYSICIAN] - [address] [facility]inic [Primary Care Provider] - 1-2 days Activity/Diet/Wound Care/Special Instructions: Fax Med list to [facility] at [phone] Discharge Disposition: HOME SELF-CARE
--- NOTE | 2022-02-17 15:11 | P.PN ---
Subjective This is a pleasant 77-year-old male past medical history significant for peripheral vascular disease, COPD, mild aortic regurgitation, dyslipidemia, former tobacco use, type 2 diabetes. He follows in the office with Dr. Rick. We have been asked to see in consultation for new onset atrial fibrillation. Patient presents to the emergency department with complaints of shortness of breath. He started to have shortness of breath that began a month ago. Over the past month, he has noted worsening dyspnea with his daily activities, symptoms of orthopnea and PND. Denies any lower extremity edema, chest pain, palpitations, lightheadedness, dizziness, syncope or near syncope. He denies history of CAD, NH, Stroke, Atrial fibrillation, heart failure. He is a former smoker quit 15-20 years ago. On admission patient was started on IV Lasix, IV steroids, IV Cardizem. Patient converted to sinus mechanism. Patient was not started on anticoagulation initially secondary to possible thoracentesis. Eliquis has been sent to pharmacy. 02/16/2022 Patient seen and examined at bedside, up in the bedside chair, no acute distress . Feeling well. Denies chest pain or shortness of breath. Plan for thoracentesis today. Anticoagulation still on hold. He is maintaining sinus mechanism, no further atrial fibrillation . Echocardiog palomo revealed EF 5560 % no pericardial effusion. 02/17 Patient seen and examined. Patient had thoracentesis with approximately 1 L removed yesterday. States he feels much better after this. Denies any chest pain or pressure. Shortness breath improved. Remains in sinus rhythm on telemetry. PHYSICAL EXAMINATION Vitals reviewed CONSTITUTIONAL: No apparent distress. HEENT: Head is normocephalic. Neck Supple No JVD. CHEST EXAMINATION: Lungs diminished, crackles in the right base to ausculta tion. No chest wall tenderness is noted on palpation or with deep breathing. HEART EXAMINATION: Regular rate and rhythm. S1, S2 heard. ABDOMEN: Soft, nontender. Positive bowel sounds. EXTREMITIES: 2+ peripheral pulses, no lower extremity edema and no calf tenderness. SKIN: Warm, dry NEUROLOGIC EXAMINATION: Patient is awake, alert and oriented x3. ASSESSMENT New onset paroxysmal atrial fibrillation -[id number] score 3, maintaining sinus mechanism Shortness of breath, symptoms of orthopnea Moderate/Large Right pleural effusion, status post her centesis Multiple pulmonary nodules reported on CT chest COPD Type 2 Diabetes Dyslipidemia History of peripheral vascular disease Former smoker PLAN Continue with rate control with metoprolol 25 twice a day and oral Lasix. Follow-up with pleural fluid analysis. Appears stable for discharge home from a cardiology standpoint with outpatient follow-up with Dr. Rick in 1 week. Continue with anticoagulation. Objective - Vital Signs Vital signs: Vital Signs Temp 98.3 F 02/17/22 04:00 Pulse 82 02/17/22 12:00 Resp 16 02/17/22 13:48 BP 128/73 02/17/22 12:00 Pulse Ox 97 02/17/22 12:00 FiO2 Intake & Output 02/16/22 02/17/22 02/17/22 18:59 06:59 18:59 Intake Total 240 240 180 Balance 240 240 180 Intake: Oral 240 240 180 Other: Voiding Method Toilet Toilet Urinal Urinal # Voids 2 - Labs CBC & Chem 7: 02/17/22 07:17 02/17/22 07:17 Labs: Abnormal Lab Results - Last 24 Hours (Table) 02/16/22 02/16/22 02/17/22 Range/Units 16:44 19:53 05:54 Hgb (13.0-17.5) gm/dL Lymphocytes # (1.0-4.8) k/uL BUN (9-20) mg/dL Glucose (74-99) mg/dL POC Glucose (mg/dL) 241 H 272 H 156 H (70-110) mg/dL Magnesium (1.6-2.3) mg/dL 02/17/22 02/17/22 02/17/22 Range/Units 07:17 07:17 11:39 Hgb 12.3 L (13.0-17.5) gm/dL Lymphocytes # 0.8 L (1.0-4.8) k/uL BUN 43 H (9-20) mg/dL Glucose 142 H (74-99) mg/dL POC Glucose (mg/dL) 150 H (70-110) mg/dL Magnesium 2.5 H (1.6-2.3) mg/dL Microbiology - Last 24 Hours (Table) 02/16/22 14:49 Gram Stain - Preliminary Pleural Fluid Body Fluid Culture - Preliminary 02/16/22 14:49 Acid Fast Bacilli Culture - Preliminary Pleural Fluid 02/16/22 14:49 Fungal Culture - Preliminary Pleural Fluid 02/16/22 14:49 Anaerobic Culture - Preliminary Pleural Fluid
[2022-02-17 15:34] VITALS: PULSE 95
--- NOTE | 2022-02-26 06:25 | CDI ---
Documentation Clarification Form Date: 02/26/22 From: Jacki Moran Admit Date: 02/14/2022 02:55:00 PM Patient Name: Ginger Quintanilla Visit Number: [id number] Discharge Date: 02/17/2022 03:50:00 PM ATTENTION: The Clinical Documentation Specialists (CDI) and [facility] Coding Staff appreciate your assistance in clarifying documentation. Please respond to the clarification below the line at the bottom and electronically sign. The CDI & [facility] Coding staff will review the response and follow-up if needed. Please note: Queries are made part of the Legal Health Record. If you have any questions, please contact the author of this message via ITS. Dr. Krista Curtis, Acute on chronic hypoxic respiratory failure is documented Dr. Lanza's consult which may lack sufficient clinical evidence/support in the medical record. Additional clarification is requested. History/Risk Factors: pleural effusion, prothrombin gene mutation, melanoma of scalp T2DM w PVD, T2DM w hyperglycemia, rheumatoid arthritis, asbestosis, PAF, COPD, HLD, hx of smoking, hx PE Clinical Indicators: Right-sided pleural effusion moderate to large patient wants it to be evaluated. Respiratory: right: diminished, dullness. No ABGs. Admission vitals: T 97.7, P 49, R 24, BP 132/77, O2 94 02/14 Vitals: T 97.5, P 80, R 18, BP 119/68, O2 92 Treatment: No oxygen, Tiotropium inhalation, Zithromax IV, Rocephin IV, Solu- Medrol IV Please clarify if acute on chronic hypoxic respiratory failure is a valid diagnosis? [ ] Yes, Acute on chronic hypoxic respiratory failure is present as evidence by (additional clinical support): [x ] No, Acute on chronic hypoxic respiratory failure is ruled out [ ] Other (please specify diagnosis) [ ] Unable to determine PRASADD
== END 2022-02-17 15:50 | disposition home or self-care (01) | DRG 187 ==
LOC: EC 07:06 → 3SCARD 14:55
PROVIDERS: ADMIT Internal Medicine; ATTEND Internal Medicine
PROC: 0W993ZX Drainage of Right Pleural Cavity, Percutaneous Approach, Diagnostic (ICD-10-PCS; principal; 2022-02-16)
DX: J90 Pleural effusion, not elsewhere classified (principal); D68.52 Prothrombin gene mutation; C43.4 Malignant melanoma of scalp and neck; E11.51 Type 2 diabetes mellitus with diabetic peripheral angiopathy without gangrene; E11.65 Type 2 diabetes mellitus with hyperglycemia; M06.9 Rheumatoid arthritis, unspecified; J61 Pneumoconiosis due to asbestos and other mineral fibers; I48.0 Paroxysmal atrial fibrillation; J44.9 Chronic obstructive pulmonary disease, unspecified; Z20.822 Contact with and (suspected) exposure to COVID-19; E78.5 Hyperlipidemia, unspecified; I08.3 Combined rheumatic disorders of mitral, aortic and tricuspid valves; N40.0 Benign prostatic hyperplasia without lower urinary tract symptoms; R51.9 Headache, unspecified; R91.8 Other nonspecific abnormal finding of lung field; T38.0X5A Adverse effect of glucocorticoids and synthetic analogues, initial encounter; Z77.090 Contact with and (suspected) exposure to asbestos; Z79.51 Long term (current) use of inhaled steroids; Z79.1 Long term (current) use of non-steroidal anti-inflammatories (NSAID); Z79.84 Long term (current) use of oral hypoglycemic drugs; Z79.899 Other long term (current) drug therapy; Z87.891 Personal history of nicotine dependence; Z86.711 Personal history of pulmonary embolism; Z87.01 Personal history of pneumonia (recurrent); Z87.820 Personal history of traumatic brain injury; Z85.038 Personal history of other malignant neoplasm of large intestine; Z90.49 Acquired absence of other specified parts of digestive tract; Z87.19 Personal history of other diseases of the digestive system; Z96.653 Presence of artificial knee joint, bilateral; Z89.111 Acquired absence of right hand; Z80.7 Family history of other malignant neoplasms of lymphoid, hematopoietic and related tissues; Z83.2 Family history of diseases of the blood and blood-forming organs and certain disorders involving the immune mechanism; Z80.3 Family history of malignant neoplasm of breast
CPT/HCPCS: 36415; 71045; 71046; 71275; 76604; 80048; 80053; 83036; 83605; 83615; 83735; 83880; 84100; 84157; 84439; 84443; 84484; 85025; 85379; 85610; 85730; 87070; 87075; 87102; 87116; 87205; 87206; 87502; 87635; 88108; 88305; 88341; 88342; 89050; 93005; 93308; 94640; 96365; 96366; 96368; 96375; 99291

== ENCOUNTER → 2022-02-21 | Outpatient (CLI) | payer OTHER ==
--- NOTE | 2022-02-21 21:15 | MR ---
EXAMINATION TYPE: MR brain wo con DATE OF EXAM: 02/21/2022 7:20 PM COMPARISON: None. CLINICAL INDICATION:Male, 77 years old with history of C43.62 MELANOMA OF LEFT UPPER LIMB, INCLUDING; TECHNIQUE: Multi planar, multi sequence imaging was performed through the brain including: T1, T2, In version recovery, Diffusion weighted imaging, and gradient echo imaging. No gadolinium was given. FINDINGS: The gibbs-white junctions, ventricular system, and cisterns appear unremarkable. Patchy areas of high T2 signal intensity are seen within the periventricular white matter. Midline structures show no abn ormality. Diffusion-weighted imaging shows no evidence of restricted diffusion. The bone marrow signal is within normal limits. The paranasal sinuses mucosal thickening of the left maxillary sinus. Bilateral aphakia. Trace bilateral mastoid air cell effusion IMPRESSION: Limited evaluation secondary to lack of IV access resulting in lack of contrast. 1. No evidence of intracranial mass or acute/subacute infarct. 2. Nonspecific white matter changes, likely secondary to small vessel ischemic disease.
== END | disposition home or self-care (01) ==
LOC: RADMRIMAIN 17:09
PROVIDERS: ATTEND Internal Medicine Hematology & Oncology
DX: C43.62 Malignant melanoma of left upper limb, including shoulder (principal)
CPT/HCPCS: 70551

== ENCOUNTER → 2022-02-23 | Outpatient (CLI) | payer OTHER ==
--- NOTE | 2022-02-24 09:34 | PE ---
EXAMINATION TYPE: PET CT fusion skull to thigh DATE OF EXAM: 02/23/2022, PET/CT 02/06/2020, CT chest 01/21/2020, 11/04/2020, 10/30/2021 CLINICAL INDICATION:Male, 77 years old with history of malignant melanoma; TECHNIQUE: Following the intravenous administration of 12.28 mCi of F-18 FDG, whole body images are performed from the skull base to the midthigh. Images are reviewed on the computer in the coronal, axial, and sagittal planes. Reconstructed rotating images are created on independent workstation and reviewed on the computer. A non-contrast CT is performed in conjunction with the PET scan. COMPARISON: CT chest 02/14/2022, PET/CT 02/06/2020 FINDINGS: SKULL BASE AND NECK: No suspicious FDG activity. CHEST, MEDIASTINUM, AND HILAR REGION: The sternal background is mean SUV 1.3 and Max 1.6. There is sm all right pleural effusion visualized portions of lungs demonstrate scattered nodular densities with streaky atelectasis/scarring which isn't that different dating back to 05/01/2021. Right low paratra cheal lymph node with max SUV 2.5 and measuring 7 mm in short axis is unchanged in size from 2. Additional pulmonary nodules which do not demonstrate FDG activity above background levels. ABDOMEN AND PELVIS: Background uptake of the liver is mean SUV 1.9, max SUV 2.0. Focus of increased F DG activity within the right prostate measuring SUV 6.6 OSSEOUS STRUCTURES: No suspicious FDG activity. LOWER EXTREMITIES: No suspicious FDG activity. OTHER CT: The lenses are removed from the globes. There is mild left maxillary sinus mucosal thickeni ng. Moderate coronary artery atherosclerosis. The gallbladder surgically absent. There is bilateral nonobstructing calculi versus atherosclerotic calcifications in the renal sinus. Scattered clonic div erticula are present. The prostate is enlarged measuring up to 6.3 cm in transverse dimension. Sclerotic focus within the l eft ischium is unchanged and consistent with bony island. There is a left total shoulder arthroplasty . Bilateral total knee arthroplasties are present. IMPRESSION: 1. No abnormal FDG uptake within the pulmonary nodules. This may false negative due to their size racquel ng less than 1 cm. The largest measuring up to 1.1 cm does not have abnormal FDG uptake. 2. Right paratracheal lymph node with increased FDG activity which is minimally above background, thi s could be secondary to infectious/inflammatory process. Attention on follow-up imaging. 3. Focus of FDG uptake within the prostate gland on the right near calcifications remains FDG avid on non attenuation correction images, correlate with serum PSA. 4. Abnormal uptake within the legs.
== END | disposition home or self-care (01) ==
LOC: RADPETMAIN 07:06
PROVIDERS: ATTEND Internal Medicine Hematology & Oncology
DX: C43.9 Malignant melanoma of skin, unspecified (principal)
CPT/HCPCS: 78815; A9552

== ENCOUNTER 2022-04-17 20:18 | Inpatient (IN) | payer OTHER, MEDICARE ==
[2022-04-17 21:48] LABS: Basophils % (A) 0 %; Eosinophils # (A) 0.1 k/uL (0-0.7); Eosinophils % (A) 1 %; HCT 40.8 % (39.0-53.0); HGB 12.9 gm/dL (13.0-17.5); Hypochromasia Slight; Lymphocytes # (A) 1.9 k/uL (1.0-4.8); Lymphocytes % (A) 23 %; MCH 26.2 pg (25.0-35.0); MCHC 31.6 g/dL (31.0-37.0); MCV 83.1 fL (80.0-100.0); Mean Platelet Volume 8.5; Monocytes # (A) 0.7 k/uL (0-1.0); Monocytes % (A) 8 %; Neutrophils # (A) 5.4 k/uL (1.3-7.7); Neutrophils % (A) 66 %; Platelet Count 316 k/uL (150-450); RBC 4.91 m/uL (4.30-5.90); RDW 15.7 % (11.5-15.5); WBC 8.2 k/uL (3.8-10.6)
[2022-04-17 21:52] LABS: ALT 15 U/L (4-49); AST 30 U/L (17-59); African American GFR (CKD) >90 (>60 ml/min/1.73 sqM); Alkaline Phosphatase 125 U/L (38-126); Anion Gap 14 mmol/L; Blood Urea Nitrogen 14 mg/dL (9-20); Calcium 9.6 mg/dL (8.4-10.2); Carbon Dioxide 17 mmol/L (22-30); Chloride 106 mmol/L (98-107); Glucose 161 mg/dL (74-99); Magnesium 1.5 mg/dL (1.6-2.3); Non-African American GFR(CKD) 86 (>60 ml/min/1.73 sqM); Potassium 5.3 mmol/L (3.5-5.1); Sodium 137 mmol/L (137-145); Total Protein 6.7 g/dL (6.3-8.2)
[2022-04-17 22:26] LABS: Prothrombin Time 11.2 sec (9.0-12.0)
[2022-04-17] MEDS ORDERED: MAGNESIUM SULFATE-D5W PMX 1 GM in DEXTROSE/WATER 1 100ML.BAG IVPB ONE (22:51)
--- NOTE | 2022-04-17 23:00 | XR ---
EXAMINATION TYPE: XR chest 2V DATE OF EXAM: 04/17/2022 COMPARISON: NONE HISTORY: Short of breath TECHNIQUE: 2 views FINDINGS: There is moderate right pleural effusion. Left lung is clear. There is left shoulder prosth esis. There is some infiltrate at the right lung base. No heart failure. IMPRESSION: There is right pleural effusion and right lower lobe infiltrate which are increased yulisa red to old exam. No heart failure. Normal heart.
[2022-04-17] MEDS ORDERED: methylPREDNISolone SOD SUCCI 125 MG/2 ML VIAL IV STA (23:25)
[2022-04-17] MEDS ORDERED: IPRATROPIUM-ALBUTEROL 3 ML NEB INHALATION STA (23:25)
[2022-04-17] MEDS ORDERED: FUROSEMIDE 10 MG/ML 4 ML VIAL IV STA (23:25)
--- NOTE | 2022-04-17 23:29 | ED ---
SOB HPI - General Chief Complaint: Shortness of Breath Stated Complaint: SOB Time Seen by Provider: 04/17/22 21:08 Source: patient Mode of arrival: ambulatory Limitations: no limitations - History of Present Illness Initial Comments: 77-year-old male with past medical history of PE on Eliquis, COPD, recurrent pleural effusion who presents the emergency room with shortness of breath. Patient was hospitalized in January and had thoracentesis for a right-sided pleural effusion. Also was hospitalized last month at the [facility] in [place] where a second thoracentesis was performed. Patient unaware of what is causing his recurrent fluid. Denies history of congestive heart failure. Does have melanoma however no other cancer history. Reports that he became extremely short of breath while at home today. He attempted to use his nebulizer however did not have any improvement in his symptoms. He does not wear oxygen. Denies any missed doses of his anticoagulation. pain or swelling. Patient does not take water pills. No current antibiotic or steroid use. No fevers, chills or cough. No other alleviating, precipitating or modifying factors - Related Data Home Medications Medication Instructions Recorded Confirmed Atorvastatin [Lipitor] 20 mg PO HS 11/25/18 04/18/22 Albuterol Inhaler [Ventolin Hfa 1 puff INHALATION RT-Q4H PRN 05/01/21 04/18/22 Inhaler] Calcium Carbonate/Vitamin D3 1 tab PO BID 05/01/21 04/18/22 [Calcium 500-Vit D3 5 Mcg (200 Iu)] Cholecalciferol [Vitamin D3 (25 50 mcg PO DAILY 05/01/21 04/18/22 Mcg = 1000 Iu)] Fluticasone Propion/Salmeterol 1 puff INHALATION RT-BID 05/01/21 04/18/22 [Advair 250-50 Diskus] Omeprazole [PriLOSEC] 20 mg PO AC-BRKFST 05/01/21 04/18/22 Potassium Chloride [Klor-Con 10 ER] 10 meq PO DAILY 05/01/21 04/18/22 Tamsulosin [Flomax] 0.4 mg PO HS 05/01/21 04/18/22 Leflunomide [Arava] 20 mg PO DAILY 10/30/21 04/18/22 Albuterol Nebulized [Ventolin 2.5 mg INHALATION RT-Q4H PRN 02/14/22 04/18/22 Nebulized] Tiotropium 2.5 Mcg/Puff [Spiriva 2 puff INHALATION RT-DAILY 02/14/22 04/18/22 Respimat 2.5 Mcg] metFORMIN HCL ER [Glucophage XR] 500 mg PO DAILY 02/14/22 04/18/22 Ketoconazole 2% Shampoo [Nizoral] 1 applic TOPICAL MOWEFR 04/18/22 04/18/22 Previous Rx's Medication Instructions Recorded Apixaban [Eliquis] 5 mg PO BID #60 tab 02/15/22 Metoprolol Tartrate [Lopressor] 25 mg PO BID #60 tab 02/17/22 Allergies Allergy/AdvReac Type Severity Reaction Status Date / Time No Known Allergies Allergy Verified 04/18/22 08:37 Review of Systems ROS Statement: Those systems with pertinent positive or pertinent negative responses have been documented in the HPI. ROS Other: All systems not noted in ROS Statement are negative. Past Medical History Past Medical History: Cancer, Eye Disorder, Prostate Disorder, Pulmonary Embolus (PE), Rheumatoid Arthritis (RA) Additional Past Medical History / Comment(s): 2014 R sided PE, bilateral chronic lung nodules, "leaky heart valve", BPH, skin cancer (melanoma) with removals, malignant colon polyps removed, headaches since CHI, bilateral cataracts with removal. History of Any Multi-Drug Resistant Organisms: None Reported Past Surgical History: Appendectomy, Cholecystectomy, Heart Catheterization, Joint Replacement, Orthopedic Surgery Additional Past Surgical History / Comment(s): R knee arthroscopy, bilateral total knee arthroplasties, R shoulder rotator cuff repair, L knee replacement, bilateral elbow surgery, R hand partial amputation d/t injury, colonoscopy with 2 cancerous polypectomies, skin cancer removed, EGD Past Anesthesia/Blood Transfusion Reactions: No Reported Reaction Additional Past Anesthesia/Blood Transfusion Reaction / Comment(s): Pt has never recieved blood. Past Psychological History: No Psychological Hx Reported Smoking Status: Former smoker Past Alcohol Use History: None Reported Past Drug Use History: None Reported - Past Family History Son(s) Family Medical History: Deep Vein Thrombosis (DVT) Father Family Medical History: Cancer Additional Family Medical History / Comment(s): Father of lymphoma at age 70 yrs. Mother Family Medical History: Cancer Additional Family Medical History / Comment(s): Mother had breast cancer. She at age 88yrs. General Exam Limitations: no limitations General appearance: alert, anxious Head exam: Present: atraumatic, normocephalic, normal inspection Eye exam: Present: normal appearance, PERRL, EOMI. Absent: scleral icterus, conjunctival injection, periorbital swelling ENT exam: Present: normal exam, mucous membranes moist Neck exam: Present: normal inspection. Absent: tenderness, meningismus, lymphadenopathy Respiratory exam: Present: decreased breath sounds (right base). Absent: re spiratory distress, wheezes, rales, rhonchi, stridor Cardiovascular Exam: Present: regular rate, normal rhythm, normal heart sounds. Absent: systolic murmur, diastolic murmur, rubs, gallop, clicks GI/Abdominal exam: Present: soft, normal bowel sounds. Absent: distended, tenderness, guarding, rebound, rigid Extremities exam: Present: normal inspection, full ROM, normal capillary refill. Absent: tenderness, pedal edema, joint swelling, calf tenderness Back exam: Present: normal inspection Neurological exam: Present: alert, oriented X3, CN II-XII intact Psychiatric exam: Present: normal affect, normal mood Skin exam: Present: warm, dry, intact, normal color. Absent: rash Course Vital Signs 04/17/22 04/17/22 04/17/22 20:52 21:00 21:07 Temperature 97.8 F Pulse Rate 125 H 94 Respiratory 24 22 26 H Rate Blood Pressure 145/77 163/93 O2 Sat by Pulse 96 94 L Oximetry Fraction of Inspired Oxygen (FIO2) 04/17/22 04/17/22 04/17/22 22:05 23:45 23:59 Temperature 98.3 F Pulse Rate 96 93 104 H Respiratory 20 20 Rate Blood Pressure 134/79 140/85 O2 Sat by Pulse 94 L 97 Oximetry Fraction of Inspired Oxygen (FIO2) 04/18/22 04/18/22 04/18/22 00:48 01:13 03:30 Temperature Pulse Rate 108 H Respiratory 20 Rate Blood Pressure O2 Sat by Pulse 96 Oximetry Fraction of 96 Inspired Oxygen (FIO2) 04/18/22 04/18/22 04/18/22 03:37 03:43 03:45 Temperature Pulse Rate 107 H Respiratory 16 16 Rate Blood Pressure O2 Sat by Pulse 98 Oximetry Fraction of Inspired Oxygen (FIO2) Medical Decision Making - Medical Decision Making On arrival patient was placed into room 10. There are history and physical exam was performed. IV access established laboratory studies were conducted. Chest x-rays performed. Laboratory studies are reviewed and demonstrates a potassium of 3.3. Covid and influenza are not detected. Chest x-ray demonstrates recurr ent right pleural effusion. Patient given Solu-Medrol 125, DuoNeb breathing treatment and 40 mg of Lasix. Patient will be admitted for Pulm consult. He was agreeable to the treatment plan and is waiting a bed on the floor in stable condition - Lab Data Result diagrams: 04/18/22 05:27 04/18/22 05:27 Lab Results 04/17/22 04/17/22 04/17/22 Range/Units 21:34 21:34 21:34 WBC 8.2 (3.8-10.6) k/uL RBC 4.91 (4.30-5.90) m/uL Hgb 12.9 L (13.0-17.5) gm/dL Hct 40.8 (39.0-53.0) % MCV 83.1 (80.0-100.0) fL MCH 26.2 (25.0-35.0) pg MCHC 31.6 (31.0-37.0) g/dL RDW 15.7 H (11.5-15.5) % Plt Count 316 (150-450) k/uL MPV 8.5 Neutrophils % 66 % Lymphocytes % 23 % Monocytes % 8 % Eosinophils % 1 % Basophils % 0 % Neutrophils # 5.4 (1.3-7.7) k/uL Lymphocytes # 1.9 (1.0-4.8) k/uL Monocytes # 0.7 (0-1.0) k/uL Eosinophils # 0.1 (0-0.7) k/uL Basophils # 0.0 (0-0.2) k/uL Hypochromasia Slight PT (9.0-12.0) sec INR (<1.2) APTT (22.0-30.0) sec Sodium 137 (137-145) mmol/L Potassium 5.3 H (3.5-5.1) mmol/L Chloride 106 (98-107) mmol/L Carbon Dioxide 17 L (22-30) mmol/L Anion Gap 14 mmol/L BUN 14 (9-20) mg/dL Creatinine 0.81 (0.66-1.25) mg/dL Est GFR (CKD-EPI)AfAm >90 (>60 ml/min/1.73 sqM) Est GFR (CKD-EPI)NonAf 86 (>60 ml/min/1.73 sqM) Glucose 161 H (74-99) mg/dL POC Glucose (mg/dL) (70-110) mg/dL POC Glu Nursing Care Partner ID Lactic Ac Sepsis Rflx Plasma Lactic Acid Jarret (0.7-2.0) mmol/L Calcium 9.6 (8.4-10.2) mg/dL Magnesium 1.5 L (1.6-2.3) mg/dL Total Bilirubin 1.0 (0.2-1.3) mg/dL AST 30 (17-59) U/L ALT 15 (4-49) U/L Alkaline Phosphatase 125 (38-126) U/L Troponin I <0.012 (0.000-0.034) ng/mL NT-Pro-B Natriuret Pep pg/mL Total Protein 6.7 (6.3-8.2) g/dL Albumin 4.0 (3.5-5.0) g/dL Coronavirus (PCR) (Not Detectd) Influenza Type A RNA (Not Detectd) Influenza Type B (PCR) (Not Detectd) 04/17/22 04/17/22 04/17/22 Range/Units 21:34 21:34 21:34 WBC (3.8-10.6) k/uL RBC (4.30-5.90) m/uL Hgb (13.0-17.5) gm/dL Hct (39.0-53.0) % MCV (80.0-100.0) fL MCH (25.0-35.0) pg MCHC (31.0-37.0) g/dL RDW (11.5-15.5) % Plt Count (150-450) k/uL MPV Neutrophils % % Lymphocytes % % Monocytes % % Eosinophils % % Basophils % % Neutrophils # (1.3-7.7) k/uL Lymphocytes # (1.0-4.8) k/uL Monocytes # (0-1.0) k/uL Eosinophils # (0-0.7) k/uL Basophils # (0-0.2) k/uL Hypochromasia PT (9.0-12.0) sec INR (<1.2) APTT (22.0-30.0) sec Sodium (137-145) mmol/L Potassium (3.5-5.1) mmol/L Chloride (98-107) mmol/L Carbon Dioxide (22-30) mmol/L Anion Gap mmol/L BUN (9-20) mg/dL Creatinine (0.66-1.25) mg/dL Est GFR (CKD-EPI)AfAm (>60 ml/min/1.73 sqM) Est GFR (CKD-EPI)NonAf (>60 ml/min/1.73 sqM) Glucose (74-99) mg/dL POC Glucose (mg/dL) (70-110) mg/dL POC Glu Nursing Care Partner ID Lactic Ac Sepsis Rflx Plasma Lactic Acid Jarret (0.7-2.0) mmol/L Calcium (8.4-10.2) mg/dL Magnesium (1.6-2.3) mg/dL Total Bilirubin (0.2-1.3) mg/dL AST (17-59) U/L ALT (4-49) U/L Alkaline Phosphatase (38-126) U/L Troponin I (0.000-0.034) ng/mL NT-Pro-B Natriuret Pep 148 pg/mL Total Protein (6.3-8.2) g/dL Albumin (3.5-5.0) g/dL Coronavirus (PCR) Not Detected (Not Detectd) Influenza Type A RNA Not Detected (Not Detectd) Influenza Type B (PCR) Not Detected (Not Detectd) 04/17/22 04/17/22 04/17/22 Range/Units 21:50 21:50 22:36 WBC (3.8-10.6) k/uL RBC (4.30-5.90) m/uL Hgb (13.0-17.5) gm/dL Hct (39.0-53.0) % MCV (80.0-100.0) fL MCH (25.0-35.0) pg MCHC (31.0-37.0) g/dL RDW (11.5-15.5) % Plt Count (150-450) k/uL MPV Neutrophils % % Lymphocytes % % Monocytes % % Eosinophils % % Basophils % % Neutrophils # (1.3-7.7) k/uL Lymphocytes # (1.0-4.8) k/uL Monocytes # (0-1.0) k/uL Eosinophils # (0-0.7) k/uL Basophils # (0-0.2) k/uL Hypochromasia PT 11.2 (9.0-12.0) sec INR 1.0 (<1.2) APTT 25.0 (22.0-30.0) sec Sodium (137-145) mmol/L Potassium (3.5-5.1) mmol/L Chloride (98-107) mmol/L Carbon Dioxide (22-30) mmol/L Anion Gap mmol/L BUN (9-20) mg/dL Creatinine (0.66-1.25) mg/dL Est GFR (CKD-EPI)AfAm (>60 ml/min/1.73 sqM) Est GFR (CKD-EPI)NonAf (>60 ml/min/1.73 sqM) Glucose (74-99) mg/dL POC Glucose (mg/dL) (70-110) mg/dL POC Glu Nursing Care Partner ID Lactic Ac Sepsis Rflx Y Plasma Lactic Acid Jarret 3.3 H* (0.7-2.0) mmol/L Calcium (8.4-10.2) mg/dL Magnesium (1.6-2.3) mg/dL Total Bilirubin (0.2-1.3) mg/dL AST (17-59) U/L ALT (4-49) U/L Alkaline Phosphatase (38-126) U/L Troponin I (0.000-0.034) ng/mL NT-Pro-B Natriuret Pep pg/mL Total Protein (6.3-8.2) g/dL Albumin (3.5-5.0) g/dL Coronavirus (PCR) (Not Detectd) Influenza Type A RNA (Not Detectd) Influenza Type B (PCR) (Not Detectd) 04/18/22 04/18/22 04/18/22 Range/Units 01:35 02:43 05:27 WBC 6.3 (3.8-10.6) k/uL RBC 4.75 (4.30-5.90) m/uL Hgb 12.4 L (13.0-17.5) gm/dL Hct 39.8 (39.0-53.0) % MCV 83.7 (80.0-100.0) fL MCH 26.0 (25.0-35.0) pg MCHC 31.1 (31.0-37.0) g/dL RDW 15.6 H (11.5-15.5) % Plt Count 310 (150-450) k/uL MPV 8.7 Neutrophils % 89 % Lymphocytes % 8 % Monocytes % 2 % Eosinophils % 0 % Basophils % 0 % Neutrophils # 5.6 (1.3-7.7) k/uL Lymphocytes # 0.5 L (1.0-4.8) k/uL Monocytes # 0.1 (0-1.0) k/uL Eosinophils # 0.0 (0-0.7) k/uL Basophils # 0.0 (0-0.2) k/uL Hypochromasia Slight PT (9.0-12.0) sec INR (<1.2) APTT (22.0-30.0) sec Sodium (137-145) mmol/L Potassium (3.5-5.1) mmol/L Chloride (98-107) mmol/L Carbon Dioxide (22-30) mmol/L Anion Gap mmol/L BUN (9-20) mg/dL Creatinine (0.66-1.25) mg/dL Est GFR (CKD-EPI)AfAm (>60 ml/min/1.73 sqM) Est GFR (CKD-EPI)NonAf (>60 ml/min/1.73 sqM) Glucose (74-99) mg/dL POC Glucose (mg/dL) (70-110) mg/dL POC Glu Nursing Care Partner ID Lactic Ac Sepsis Rflx Y Plasma Lactic Acid Jarret 2.7 H* (0.7-2.0) mmol/L Calcium (8.4-10.2) mg/dL Magnesium (1.6-2.3) mg/dL Total Bilirubin (0.2-1.3) mg/dL AST (17-59) U/L ALT (4-49) U/L Alkaline Phosphatase (38-126) U/L Troponin I (0.000-0.034) ng/mL NT-Pro-B Natriuret Pep pg/mL Total Protein (6.3-8.2) g/dL Albumin (3.5-5.0) g/dL Coronavirus (PCR) (Not Detectd) Influenza Type A RNA (Not Detectd) Influenza Type B (PCR) (Not Detectd) 04/18/22 04/18/22 04/18/22 Range/Units 05:27 05:27 06:18 WBC (3.8-10.6) k/uL RBC (4.30-5.90) m/uL Hgb (13.0-17.5) gm/dL Hct (39.0-53.0) % MCV (80.0-100.0) fL MCH (25.0-35.0) pg MCHC (31.0-37.0) g/dL RDW (11.5-15.5) % Plt Count (150-450) k/uL MPV Neutrophils % % Lymphocytes % % Monocytes % % Eosinophils % % Basophils % % Neutrophils # (1.3-7.7) k/uL Lymphocytes # (1.0-4.8) k/uL Monocytes # (0-1.0) k/uL Eosinophils # (0-0.7) k/uL Basophils # (0-0.2) k/uL Hypochromasia PT (9.0-12.0) sec INR (<1.2) APTT (22.0-30.0) sec Sodium 138 (137-145) mmol/L Potassium 4.1 (3.5-5.1) mmol/L Chloride 104 (98-107) mmol/L Carbon Dioxide 21 L (22-30) mmol/L Anion Gap 13 mmol/L BUN 13 (9-20) mg/dL Creatinine 0.82 (0.66-1.25) mg/dL Est GFR (CKD-EPI)AfAm >90 (>60 ml/min/1.73 sqM) Est GFR (CKD-EPI)NonAf 85 (>60 ml/min/1.73 sqM) Glucose 217 H (74-99) mg/dL POC Glucose (mg/dL) (70-110) mg/dL POC Glu Nursing Care Partner ID Lactic Ac Sepsis Rflx Y Plasma Lactic Acid Jarret 2.9 H* (0.7-2.0) mmol/L Calcium 9.3 (8.4-10.2) mg/dL Magnesium (1.6-2.3) mg/dL Total Bilirubin (0.2-1.3) mg/dL AST (17-59) U/L ALT (4-49) U/L Alkaline Phosphatase (38-126) U/L Troponin I (0.000-0.034) ng/mL NT-Pro-B Natriuret Pep pg/mL Total Protein (6.3-8.2) g/dL Albumin (3.5-5.0) g/dL Coronavirus (PCR) (Not Detectd) Influenza Type A RNA (Not Detectd) Influenza Type B (PCR) (Not Detectd) 04/18/22 04/18/22 04/18/22 Range/Units 07:33 10:50 11:43 WBC (3.8-10.6) k/uL RBC (4.30-5.90) m/uL Hgb (13.0-17.5) gm/dL Hct (39.0-53.0) % MCV (80.0-100.0) fL MCH (25.0-35.0) pg MCHC (31.0-37.0) g/dL RDW (11.5-15.5) % Plt Count (150-450) k/uL MPV Neutrophils % % Lymphocytes % % Monocytes % % Eosinophils % % Basophils % % Neutrophils # (1.3-7.7) k/uL Lymphocytes # (1.0-4.8) k/uL Monocytes # (0-1.0) k/uL Eosinophils # (0-0.7) k/uL Basophils # (0-0.2) k/uL Hypochromasia PT (9.0-12.0) sec INR (<1.2) APTT (22.0-30.0) sec Sodium (137-145) mmol/L Potassium (3.5-5.1) mmol/L Chloride (98-107) mmol/L Carbon Dioxide (22-30) mmol/L Anion Gap mmol/L BUN (9-20) mg/dL Creatinine (0.66-1.25) mg/dL Est GFR (CKD-EPI)AfAm (>60 ml/min/1.73 sqM) Est GFR (CKD-EPI)NonAf (>60 ml/min/1.73 sqM) Glucose (74-99) mg/dL POC Glucose (mg/dL) 202 H (70-110) mg/dL POC Glu Nursing Care Partner ID Julianna Felix Lactic Ac Sepsis Rflx Y Plasma Lactic Acid Jarret 3.7 H* (0.7-2.0) mmol/L Calcium (8.4-10.2) mg/dL Magnesium (1.6-2.3) mg/dL Total Bilirubin (0.2-1.3) mg/dL AST (17-59) U/L ALT (4-49) U/L Alkaline Phosphatase (38-126) U/L Troponin I (0.000-0.034) ng/mL NT-Pro-B Natriuret Pep pg/mL Total Protein (6.3-8.2) g/dL Albumin (3.5-5.0) g/dL Coronavirus (PCR) (Not Detectd) Influenza Type A RNA (Not Detectd) Influenza Type B (PCR) (Not Detectd) 04/18/22 Range/Units 12:33 WBC (3.8-10.6) k/uL RBC (4.30-5.90) m/uL Hgb (13.0-17.5) gm/dL Hct (39.0-53.0) % MCV (80.0-100.0) fL MCH (25.0-35.0) pg MCHC (31.0-37.0) g/dL RDW (11.5-15.5) % Plt Count (150-450) k/uL MPV Neutrophils % % Lymphocytes % % Monocytes % % Eosinophils % % Basophils % % Neutrophils # (1.3-7.7) k/uL Lymphocytes # (1.0-4.8) k/uL Monocytes # (0-1.0) k/uL Eosinophils # (0-0.7) k/uL Basophils # (0-0.2) k/uL Hypochromasia PT (9.0-12.0) sec INR (<1.2) APTT (22.0-30.0) sec Sodium (137-145) mmol/L Potassium (3.5-5.1) mmol/L Chloride (98-107) mmol/L Carbon Dioxide (22-30) mmol/L Anion Gap mmol/L BUN (9-20) mg/dL Creatinine (0.66-1.25) mg/dL Est GFR (CKD-EPI)AfAm (>60 ml/min/1.73 sqM) Est GFR (CKD-EPI)NonAf (>60 ml/min/1.73 sqM) Glucose (74-99) mg/dL POC Glucose (mg/dL) 257 H (70-110) mg/dL POC Glu Nursing Care Partner ID Julianna Felix Lactic Ac Sepsis Rflx Plasma Lactic Acid Jarret (0.7-2.0) mmol/L Calcium (8.4-10.2) mg/dL Magnesium (1.6-2.3) mg/dL Total Bilirubin (0.2-1.3) mg/dL AST (17-59) U/L ALT (4-49) U/L Alkaline Phosphatase (38-126) U/L Troponin I (0.000-0.034) ng/mL NT-Pro-B Natriuret Pep pg/mL Total Protein (6.3-8.2) g/dL Albumin (3.5-5.0) g/dL Coronavirus (PCR) (Not Detectd) Influenza Type A RNA (Not Detectd) Influenza Type B (PCR) (Not Detectd) - EKG Data EKG Comments: EKG demonstrates sinus rhythm with a rate of 96. HI interval 168. QRS 81. QTC of 400. No acute ST segment elevations or depressions Disposition Clinical Impression: Acute exacerbation of chronic obstructive pulmonary disease, Pleural effusion, Acute respiratory insufficiency, Hypomagnesemia Disposition: ADMITTED IP TO THIS HOSP Condition: Stable Is patient prescribed a controlled substance at d/c from ED?: No Time of Disposition: 23:30 Decision to Admit Reason: Admit from EC Decision Date: 04/17/22 Decision Time: 23:30
[2022-04-17] MEDS ORDERED: NALOXONE 0.4 MG/ML 1 ML VIAL IV PRN (23:31)
[2022-04-18] MEDS: IPRATROPIUM-ALBUTEROL 3 ML NEB INHALATION SCH ×6 (02:08→19:11)
--- NOTE | 2022-04-18 05:06 | P.HPIM ---
History of Present Illness H&P Date: 04/18/22 The patient is 77-year-old with a PMH of COPD, melanoma status post resection, hx of PE on Eliquis, recurrent right-sided pleural effusion, rheumatoid arthritis, and type II DM who presents to the emergency room with complaints of shortness of breath. The patient reports that she has been experiencing intermittent shortness of breath over the past several months, for which she has underwent 2 different thoracentesis. He reports gradually worsening shortness of breath which acutely worsened this afternoon. He reports being unable to perform his ADLs and dyspnea with even minimal exertion. Denies lower extremity swelling, orthopnea, chest pain. Denies wheezing, chest discomfort, nausea, d iaphoresis. Results from prior thoracentesis reviewed with no metastatic cells identified. Recent PET scan as well as chest CT both negative for malignancy. Chest x-ray in emergency room revealed a right-sided pleural effusion with right lower lobe infiltrate increased from prior exam. Laboratory evaluation remarkable for lactic acid of 3.3. Review of systems: Pertinent positives and negatives as discussed in HPI, a complete review of systems was performed and all other systems are negative. Physical examination: General: non toxic, no distress, appears at stated age, normal weight Derm: no unusual rashes/lesions, warm Head: atraumatic, normocephalic, symmetric Eyes: EOMI, no lid lag, anicteric sclera, pupils equal round reactive to light ENT: Nose and ears atraumatic Neck: No cervical lymphadenopathy, trachea midline, supple Mouth: no lip lesion, mucus membranes moist Cardiovascular: S1S2 reg, no murmur, positive dorsalis pedis pulse bilateral, no edema Lungs: Decreased breath sounds at right base, no wheezing or rhonchi, no accessory muscle use Abdominal: soft, nontender to palpation, no guarding Ext: muscle strength 5 out of 5 in all 4 extremities grossly, no gross muscle atrophy, no contractures, Neuro: CN II-XI grossly intact, no gross focal neuro deficits Psych: Alert, oriented, appropriate affect Assessment/plan Shortness of breath, suspected secondary to recurrent right-sided pleural effusion -Pulmonary consult -Shanda's Lactic acidosis -Monitor for resolution Chronic conditions: History of PE, COPD, rheumatoid arthritis -Continue with home meds DVT prophylaxis -Eliquis The patient is admitted with an anticipated greater than 2 midnight stay for ev aluation of SOB CODE STATUS: Full Code Discussed with: Patient Anticipated discharge date: 2-[address]: Home Past Medical History Past Medical History: Cancer, Eye Disorder, Prostate Disorder, Pulmonary Embolus (PE), Rheumatoid Arthritis (RA) Additional Past Medical History / Comment(s): 2014 R sided PE, bilateral chronic lung nodules, "leaky heart valve", BPH, skin cancer (melanoma) with removals, malignant colon polyps removed, headaches since CHI, bilateral cataracts with removal. History of Any Multi-Drug Resistant Organisms: None Reported Past Surgical History: Appendectomy, Cholecystectomy, Heart Catheterization, Joint Replacement, Orthopedic Surgery Additional Past Surgical History / Comment(s): R knee arthroscopy, bilateral total knee arthroplasties, R shoulder rotator cuff repair, L knee replacement, bilateral elbow surgery, R hand partial amputation d/t injury, colonoscopy with 2 cancerous polypectomies, skin cancer removed, EGD Past Anesthesia/Blood Transfusion Reactions: No Reported Reaction Additional Past Anesthesia/Blood Transfusion Reaction / Comment(s): Pt has never recieved blood. Past Psychological History: No Psychological Hx Reported Smoking Status: Former smoker Past Alcohol Use History: None Reported Past Drug Use History: None Reported - Past Family History Son(s) Family Medical History: Deep Vein Thrombosis (DVT) Father Family Medical History: Cancer Additional Family Medical History / Comment(s): Father of lymphoma at age 70 yrs. Mother Family Medical History: Cancer Additional Family Medical History / Comment(s): Mother had breast cancer. She at age 88yrs. Medications and Allergies Home Medications Medication Instructions Recorded Confirmed Type Atorvastatin [Lipitor] 20 mg PO HS 11/25/18 02/14/22 History Meloxicam [Mobic] 15 mg PO DAILY 01/21/20 02/14/22 History Furosemide [Lasix] 20 mg PO AC-BRKFST 03/14/20 02/14/22 History Albuterol Inhaler [Ventolin Hfa 1 puff INHALATION RT-Q4H PRN 05/01/21 02/14/22 History Inhaler] Calcium Carbonate/Vitamin D3 1 tab PO BID 05/01/21 02/14/22 History [Calcium 500-Vit D3 5 Mcg (200 Iu)] Cholecalciferol [Vitamin D3 (25 50 mcg PO DAILY 05/01/21 02/14/22 History Mcg = 1000 Iu)] Fluticasone Propion/Salmeterol 1 puff INHALATION RT-BID 05/01/21 02/14/22 History [Advair 250-50 Diskus] Omeprazole [PriLOSEC] 20 mg PO AC-BRKFST 05/01/21 02/14/22 History Potassium Chloride [Klor-Con 10 ER] 10 meq PO DAILY 05/01/21 02/14/22 History Tamsulosin [Flomax] 0.4 mg PO HS 05/01/21 02/14/22 History Leflunomide [Arava] 20 mg PO DAILY 10/30/21 02/14/22 History Albuterol Nebulized [Ventolin 2.5 mg INHALATION RT-Q4H PRN 02/14/22 02/14/22 History Nebulized] Tiotropium 2.5 Mcg/Puff [Spiriva 2 puff INHALATION RT-DAILY 02/14/22 02/14/22 History Respimat 2.5 Mcg] metFORMIN HCL ER [Glucophage XR] 500 mg PO DAILY 02/14/22 02/14/22 History Apixaban [Eliquis] 5 mg PO BID #60 tab 02/15/22 Rx Acetaminophen Tab [Tylenol] 650 mg PO Q4HR PRN tab 02/17/22 Rx Metoprolol Tartrate [Lopressor] 25 mg PO BID #60 tab 02/17/22 Rx Allergies Allergy/AdvReac Type Severity Reaction Status Date / Time No Known Allergies Allergy Verified 04/17/22 20:56 Physical Exam Vitals: Vital Signs Temp Pulse Resp BP Pulse Ox FiO2 04/18/22 01:13 20 96 04/18/22 00:48 96 04/17/22 23:59 104 H 04/17/22 23:45 93 20 140/85 97 04/17/22 22:05 98.3 F 96 20 134/79 94 L 04/17/22 21:07 26 H 04/17/22 21:00 94 22 163/93 94 L 04/17/22 20:52 97.8 F 125 H 24 145/77 96 Intake and Output 04/17/22 04/17/22 04/18/22 14:59 22:59 06:59 Other: Weight 89.358 kg Results CBC & Chem 7: 04/17/22 21:34 04/17/22 21:34 Labs: Abnormal Lab Results - Last 24 Hours (Table) 04/17/22 04/17/22 04/17/22 Range/Units 21:34 21:34 21:50 Hgb 12.9 L (13.0-17.5) gm/dL RDW 15.7 H (11.5-15.5) % Potassium 5.3 H (3.5-5.1) mmol/L Carbon Dioxide 17 L (22-30) mmol/L Glucose 161 H (74-99) mg/dL Plasma Lactic Acid Jarret 3.3 H* (0.7-2.0) mmol/L Magnesium 1.5 L (1.6-2.3) mg/dL
[2022-04-18 06:08] LABS: African American GFR (CKD) >90 (>60 ml/min/1.73 sqM); Anion Gap 13 mmol/L; Blood Urea Nitrogen 13 mg/dL (9-20); Calcium 9.3 mg/dL (8.4-10.2); Carbon Dioxide 21 mmol/L (22-30); Chloride 104 mmol/L (98-107); Glucose 217 mg/dL (74-99); Non-African American GFR(CKD) 85 (>60 ml/min/1.73 sqM); Potassium 4.1 mmol/L (3.5-5.1); Sodium 138 mmol/L (137-145)
[2022-04-18 06:09] LABS: Basophils % (A) 0 %; Eosinophils % (A) 0 %; HCT 39.8 % (39.0-53.0); HGB 12.4 gm/dL (13.0-17.5); Hypochromasia Slight; Lymphocytes # (A) 0.5 k/uL (1.0-4.8); Lymphocytes % (A) 8 %; MCHC 31.1 g/dL (31.0-37.0); MCV 83.7 fL (80.0-100.0); Mean Platelet Volume 8.7; Monocytes # (A) 0.1 k/uL (0-1.0); Monocytes % (A) 2 %; Neutrophils # (A) 5.6 k/uL (1.3-7.7); Neutrophils % (A) 89 %; Platelet Count 310 k/uL (150-450); RBC 4.75 m/uL (4.30-5.90); RDW 15.6 % (11.5-15.5); WBC 6.3 k/uL (3.8-10.6)
[2022-04-18 07:34] LABS: Glucose,Whole Blood 202 mg/dL (70-110)
[2022-04-18 12:35] LABS: Glucose,Whole Blood 257 mg/dL (70-110)
[2022-04-18] MEDS ORDERED: ALBUTEROL HFA INHALER INHALATION PRN (13:21)
[2022-04-18] MEDS ORDERED: ALBUTEROL NEBULIZED 2.5 MG/3 ML INHALATION PRN (13:21)
[2022-04-18] MEDS ORDERED: IPRATROPIUM-ALBUTEROL 3 ML NEB INHALATION PRN (13:34)
[2022-04-18] MEDS: KETOCONAZOLE 2% SHAMPOO 1 APPLIC/ML TOPICAL SCH (14:16)
[2022-04-18] MEDS: LACTATED RINGERS 1,000 ML IV SCH (14:16)
[2022-04-18] MEDS ORDERED: METOPROLOL TARTRATE 25 MG TAB PO STA (16:24)
[2022-04-18 17:27] LABS: Glucose,Whole Blood 215 mg/dL (70-110)
[2022-04-18] MEDS ORDERED: SODIUM CHLORIDE 0.9% 1,000 ML IV ONE (17:34)
[2022-04-18] MEDS: SODIUM CHLORIDE 0.9% 1,000 ML IV SCH (20:03)
[2022-04-18 20:11] LABS: Glucose,Whole Blood 162 mg/dL (70-110)
[2022-04-18] MEDS: CALCIUM CARB-VIT D 500 MG-5 MCG TAB PO SCH (20:28)
[2022-04-18] MEDS: ATORVASTATIN 20 MG TAB PO SCH (20:28)
[2022-04-18] MEDS: TAMSULOSIN 0.4 MG CAP.ER.24H PO SCH (20:28)
[2022-04-18] MEDS: METOPROLOL TARTRATE 25 MG TAB PO SCH (20:28)
[2022-04-18] MEDS: APIXABAN 5 MG TAB PO SCH (20:28)
[2022-04-19] MEDS: IPRATROPIUM-ALBUTEROL 3 ML NEB INHALATION SCH ×6 (00:37→21:02)
[2022-04-19] MEDS: SYMBICORT 80-4.5 MCG INHALER INHALATION SCH ×2 (02:15→15:10)
[2022-04-19] MEDS: SODIUM CHLORIDE 0.9% 1,000 ML IV SCH ×4 (02:16→20:14)
[2022-04-19 07:59] LABS: Glucose,Whole Blood 119 mg/dL (70-110)
[2022-04-19] MEDS: INSULIN ASPART (NovoLOG) 100 UNIT/ML VIAL SQ SCH ×3 (08:30→18:11)
[2022-04-19] MEDS: PANTOPRAZOLE 40 MG TABLET PO SCH (08:56)
[2022-04-19] MEDS: CHOLECALCIFEROL 25 MCG (1000 IU) TABLET PO SCH (08:56)
[2022-04-19] MEDS: POTASSIUM CHLORIDE ER 10 MEQ TAB.ER.PRT PO SCH (08:57)
[2022-04-19] MEDS: METOPROLOL TARTRATE 25 MG TAB PO SCH ×2 (08:57→22:04)
[2022-04-19] MEDS: CALCIUM CARB-VIT D 500 MG-5 MCG TAB PO SCH ×2 (08:57→22:04)
[2022-04-19] MEDS: LEFLUNOMIDE 20 MG TAB PO SCH (09:02)
[2022-04-19] MEDS: APIXABAN 5 MG TAB PO SCH (09:32)
[2022-04-19 12:18] LABS: Glucose,Whole Blood 112 mg/dL (70-110)
--- NOTE | 2022-04-19 12:23 | P.PN ---
Subjective Progress Note Date: 04/19/22 Pts shortness of breath is improved today per patient. Pain on deep inspiration still present but controlled. Pending Pulmonology evaluation, IR consult for thoracentesis. Gen: awake, alert HEENT: normocephalic, atraumatic, good hearing acuity, moist mucous membranes Resp: good air exchange, breathing comfortably with no accessory muscle use CVS: good distal perfusion x 4, GI: soft, NTTP, ND : no SPT, no CVAT, plasencia catheter is present MSK: no pitting edema, no clubbing Neuro: non-focal, moving all extremities Psych: cooperative, euthymic mood Assessment/plan: Shortness of breath, suspected secondary to recurrent right-sided pleural effusion -Pulmonary consult -DuGinna's -IR consult to remove fluid -Hold eliquis Lactic acidosis, resolved -Monitor for resolution -IVF Chronic conditions: History of PE, COPD, rheumatoid arthritis -Continue with home meds DVT prophylaxis -Eliquis is on hold pending thoracentesis CODE STATUS: Full Code Anticipated discharge date: 2-[address]: Home Objective - Vital Signs Vital signs: Vital Signs Temp 97.7 F 04/19/22 08:37 Pulse 94 04/19/22 12:18 Resp 18 04/19/22 08:37 BP 129/74 04/19/22 08:37 Pulse Ox 99 04/19/22 08:45 FiO2 96 04/18/22 01:13 Intake & Output 04/18/22 04/19/22 04/19/22 18:59 06:59 18:59 Intake Total 177 120 Output Total 1250 550 Balance -1073 -550 120 Intake: Oral 177 120 Output: Urine 1250 550 Other: Voiding Method Indwelling Catheter Indwelling Catheter Indwelling Catheter # Voids 400 - Labs CBC & Chem 7: 04/18/22 05:27 04/18/22 05:27 Labs: Abnormal Lab Results - Last 24 Hours (Table) 04/18/22 04/18/22 04/18/22 Range/Units 12:33 16:05 17:25 POC Glucose (mg/dL) 257 H 215 H (70-110) mg/dL Plasma Lactic Acid Jarret 4.1 H* (0.7-2.0) mmol/L 09/28/22 09/28/22 09/29/22 Range/Units 20:10 20:24 00:15 POC Glucose (mg/dL) 162 H (70-110) mg/dL Plasma Lactic Acid Jarret 3.0 H* 2.2 H* (0.7-2.0) mmol/L 04/19/22 04/19/22 Range/Units 07:58 12:16 POC Glucose (mg/dL) 119 H 112 H (70-110) mg/dL Plasma Lactic Acid Jarret (0.7-2.0) mmol/L
--- NOTE | 2022-04-19 13:13 | US ---
EXAMINATION TYPE: US chest DATE OF EXAM: 04/19/2022 COMPARISON: NONE CLINICAL HISTORY: See IR consult for ordering information. Exam done portable TECHNIQUE: Targeted ultrasound of the posterior lower right hemithorax EXAM MEASUREMENTS: Right Pleural Effusion pocket size: 15.5 cm Right skin surface to fluid distance: 3.3 cm Loculated fluid pocket Right side marked for possible thoracentesis outside the dept. Pulmonologists are able to review the images in the patient?s EMR. IMPRESSIONS: Large right pleural effusion which appears complicated with multiple loculations
[2022-04-19] MEDS: TIOTROPIUM 2.5 MCG INHALER INHALATION SCH (15:10)
[2022-04-19 17:00] LABS: Glucose,Whole Blood 111 mg/dL (70-110)
[2022-04-19 20:48] LABS: Glucose,Whole Blood 110 mg/dL (70-110)
[2022-04-19] MEDS: TAMSULOSIN 0.4 MG CAP.ER.24H PO SCH (22:04)
[2022-04-19] MEDS: ATORVASTATIN 20 MG TAB PO SCH (22:04)
[2022-04-20] MEDS: SYMBICORT 80-4.5 MCG INHALER INHALATION SCH ×2 (00:58→14:23)
[2022-04-20] MEDS: IPRATROPIUM-ALBUTEROL 3 ML NEB INHALATION SCH ×5 (01:03→15:08)
[2022-04-20 07:14] LABS: Glucose,Whole Blood 94 mg/dL (70-110)
[2022-04-20] MEDS: INSULIN ASPART (NovoLOG) 100 UNIT/ML VIAL SQ SCH ×2 (07:56→13:03)
[2022-04-20] MEDS: PANTOPRAZOLE 40 MG TABLET PO SCH (08:45)
[2022-04-20] MEDS: CALCIUM CARB-VIT D 500 MG-5 MCG TAB PO SCH (08:45)
[2022-04-20] MEDS: POTASSIUM CHLORIDE ER 10 MEQ TAB.ER.PRT PO SCH (08:45)
[2022-04-20] MEDS: METOPROLOL TARTRATE 25 MG TAB PO SCH (08:45)
[2022-04-20] MEDS: LEFLUNOMIDE 20 MG TAB PO SCH (08:45)
[2022-04-20] MEDS: CHOLECALCIFEROL 25 MCG (1000 IU) TABLET PO SCH (08:45)
[2022-04-20 10:32] LABS: Basophils # (A) 0.02 X 10*3/uL (0.00-0.10); Basophils % (A) 0.3 %; Eosinophils # (A) 0.06 X 10*3/uL (0.04-0.35); Eosinophils % (A) 0.8 %; HCT 34.4 % (39.6-50.0); HGB 10.9 g/dL (13.0-17.0); Immature Grans, Automated 0.8 %; Lymphocytes # (A) 1.67 X 10*3/uL (0.90-5.00); Lymphocytes % (A) 22.9 %; MCH 26.3 pg (27.0-32.0); MCHC 31.7 g/dL (32.0-37.0); MCV 82.9 fL (80.0-97.0); Mean Platelet Volume 10.6 fL (9.5-12.2); Monocytes # (A) 0.86 X 10*3/uL (0.20-1.00); Monocytes % (A) 11.8 %; NRBC Per 100 WBC 0 /100 WBCS (0.0-0.0); Neutrophils # (A) 4.61 X 10*3/uL (1.80-7.70); Neutrophils % (A) 63.4 %; Platelet Count 311 X 10*3/uL (140-440); RBC 4.15 X 10*6/uL (4.40-5.60); RDW 16.5 % (11.5-14.5); WBC 7.28 X 10*3/uL (4.50-10.00)
[2022-04-20 10:49] LABS: African American GFR (CKD) 99.9 (60.0-200.0); Anion Gap 10.2 mmol/L (10.00-18.00); BUN/Creat Ratio 16.88 Ratio (12.00-20.00); Blood Urea Nitrogen 13.5 mg/dL (9.0-27.0); Carbon Dioxide 22.8 mmol/L (20.0-27.5); Non-African American GFR(CKD) 86.2 (60.0-200.0); Potassium 3.7 mmol/L (3.5-5.5)
[2022-04-20 12:52] LABS: Glucose,Whole Blood 97 mg/dL (70-110)
--- NOTE | 2022-04-20 14:01 | XR ---
EXAMINATION TYPE: XR chest 1V portable DATE OF EXAM: 04/20/2022 COMPARISON: Chest x-ray 04/17/2022 HISTORY: Post right thoracentesis TECHNIQUE: Single frontal view of the chest is obtained. FINDINGS: Blunting the right costophrenic angle is again noted. There are bandlike areas of increase d attenuation within the right chest. No evident pneumothorax. Surgical clips present at the thoracic inlet on the left. Cardiac mediastinal silhouette is stable. Right hemidiaphragm is obscured. Minima l density present at the left costophrenic angle. Postop change noted to the left shoulder. IMPRESSION: No evident complication status post thoracentesis.
[2022-04-20] MEDS: TIOTROPIUM 2.5 MCG INHALER INHALATION SCH (14:23)
[2022-04-20 15:08] VITALS: TEMP 97.8
[2022-04-20 15:47] VITALS: RESP 18
[2022-04-20] MEDS: KETOCONAZOLE 2% SHAMPOO 1 APPLIC/ML TOPICAL SCH (16:10)
--- NOTE | 2022-04-20 16:25 | P.DS ---
Providers Date of admission: 04/18/22 15:12 Expected date of discharge: 04/20/22 Attending physician: Tricia Jasso MD Consults: 04/18/22 07:58 Consult Physician Routine Consulting Provider: Moncho Lanza Consult Reason/Comments: COPD Do you want consulting provider notified?: Yes Primary care physician: [facility] Course: Shortness of breath, suspected secondary to recurrent right-sided pleural effusion Lactic acidosis, resolved Chronic conditions: History of PE, COPD, rheumatoid arthritis The patient is 77-year-old with a PMH of COPD, melanoma status post resection, hx of PE on Eliquis, recurrent right-sided pleural effusion, rheumatoid arthritis, and type II DM who presented to the emergency room with complaints of shortness of breath. Laboratory evaluation remarkable for lactic acid of 3.3. Pt was treated with aggressive IVF and lactic acidosis resolved. 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 I spent 34 minutes coordinating this complex discharge. Gen: awake, alert HEENT: normocephalic, atraumatic, good hearing acuity, moist mucous membranes Resp: good air exchange, breathing comfortably with no accessory muscle use CVS: good distal perfusion x 4, GI: soft, NTTP, ND : no SPT, no CVAT, plasencia catheter is present MSK: no pitting edema, no clubbing Neuro: non-focal, moving all extremities Psych: cooperative, euthymic mood Patient Condition at Discharge: Good Plan - Discharge Summary Discharge Rx Participant: No New Discharge Prescriptions: Continue Atorvastatin [Lipitor] 20 mg PO HS Fluticasone Propion/Salmeterol [Advair 250-50 Diskus] 1 puff INHALATION RT- BID Cholecalciferol [Vitamin D3 (25 Mcg = 1000 Iu)] 50 mcg PO DAILY Albuterol Nebulized [Ventolin Nebulized] 2.5 mg INHALATION RT-Q4H PRN PRN Reason: Shortness Of Breath metFORMIN HCL ER [Glucophage XR] 500 mg PO DAILY Apixaban [Eliquis] 5 mg PO BID #60 tab Calcium Carbonate/Vitamin D3 [Calcium 500-Vit D3 5 Mcg (200 Iu)] 1 tab PO BID Albuterol Inhaler [Ventolin Hfa Inhaler] 1 puff INHALATION RT-Q4H PRN PRN Reason: Shortness Of Breath Tamsulosin [Flomax] 0.4 mg PO HS Potassium Chloride [Klor-Con 10 ER] 10 meq PO DAILY Omeprazole [PriLOSEC] 20 mg PO [facility] Leflunomide [Arava] 20 mg PO DAILY Tiotropium 2.5 Mcg/Puff [Spiriva Respimat 2.5 Mcg] 2 puff INHALATION RT-DAILY Metoprolol Tartrate [Lopressor] 25 mg PO BID #60 tab Ketoconazole 2% Shampoo [Nizoral] 1 applic TOPICAL MOWEFR Discharge Medication List Atorvastatin [Lipitor] 20 mg PO HS 11/25/18 [History] Albuterol Inhaler [Ventolin Hfa Inhaler] 1 puff INHALATION RT-Q4H PRN 05/01/21 [History] Calcium Carbonate/Vitamin D3 [Calcium 500-Vit D3 5 Mcg (200 Iu)] 1 tab PO BID 05/01/21 [History] Cholecalciferol [Vitamin D3 (25 Mcg = 1000 Iu)] 50 mcg PO DAILY 05/01/21 [History] Fluticasone Propion/Salmeterol [Advair 250-50 Diskus] 1 puff INHALATION RT-BID 05/01/21 [History] Omeprazole [PriLOSEC] 20 mg PO [facility] 05/01/21 [History] Potassium Chloride [Klor-Con 10 ER] 10 meq PO DAILY 05/01/21 [History] Tamsulosin [Flomax] 0.4 mg PO 05/01/21 [History] Leflunomide [Arava] 20 mg PO DAILY 10/30/21 [History] Albuterol Nebulized [Ventolin Nebulized] 2.5 mg INHALATION RT-Q4H PRN 02/14/22 [History] Tiotropium 2.5 Mcg/Puff [Spiriva Respimat 2.5 Mcg] 2 puff INHALATION RT-DAILY 02/14/22 [History] metFORMIN HCL ER [Glucophage XR] 500 mg PO DAILY 02/14/22 [History] Apixaban [Eliquis] 5 mg PO BID #60 tab 02/15/22 [Rx] Metoprolol Tartrate [Lopressor] 25 mg PO BID #60 tab 02/17/22 [Rx] Ketoconazole 2% Shampoo [Nizoral] 1 applic TOPICAL MOWEFR 04/18/22 [History] Follow up Appointment(s)/Referral(s): Moncho Lanza MD [STAFF PHYSICIAN] - 10 Days [facility] [Primary Care Provider] - 1-2 days Discharge Disposition: HOME WITH HOME HEALTH SERVICES
[2022-04-20 16:31] VITALS: BP 116/72; PULSE 98
[2022-04-21 00:24] LABS: Appearance,BF Clear
[2022-04-21 02:58] LABS: Amylase, Fluid Source Pleural Fluid; Amylase,Body Fluid 12 U/L
[2022-04-21 02:59] LABS: Glucose, BF Source Pleural Fluid; Glucose, Body Fluid 22 mg/dL; LDH, Body Fluid Source Pleural Fluid; T. Protein, Body Fluid Source Pleural Fluid; Total Protein, Body Fluid 2260 mg/dL
--- NOTE | 2022-04-22 06:32 | US ---
EXAMINATION TYPE: US thoracentesis DATE OF EXAM: 04/20/2022 COMPARISON: NONE HISTORY: Right Pleural effusion. FINDINGS: Maximal barrier technique was utilized. The skin overlying a suitable pocket of fluid was localized and the overlying skin prepped and draped. Lidocaine was used for local anesthesia. Ultras ound was used with sterile technique. A 5 [place]i catheter. I needle was advanced into the pleural fl uid collection using ultrasound guidance the catheter advanced, needle removed. Approximately 1 lite r(s) of yellow fluid was removed. Catheter was withdrawn and hemostasis achieved. There is no immed iate complication. The patient discharged in stable condition without complication. IMPRESSION: STATUS POST ULTRASOUND GUIDED THORACENTESIS, POST PROCEDURE CHEST X-RAY PENDING. THIS PA OCEDURE WAS PERFORMED BY THE UNDERSIGNED. There is loculation noted by ultrasound.
== END 2022-04-20 17:01 | disposition home health service (06) | DRG 187 ==
LOC: EC 20:18 → 6NMEDSUR 23:31 → OBSVTOIN 04-18 15:12
PROVIDERS: ADMIT Internal Medicine; ATTEND Internal Medicine
PROC: 0W9930Z Drainage of Right Pleural Cavity with Drainage Device, Percutaneous Approach (ICD-10-PCS; principal; 2022-04-20)
DX: J90 Pleural effusion, not elsewhere classified (principal); E87.2 Acidosis; Z20.822 Contact with and (suspected) exposure to COVID-19; E83.42 Hypomagnesemia; J44.9 Chronic obstructive pulmonary disease, unspecified; N40.0 Benign prostatic hyperplasia without lower urinary tract symptoms; E11.9 Type 2 diabetes mellitus without complications; M06.9 Rheumatoid arthritis, unspecified; Z85.820 Personal history of malignant melanoma of skin; Z79.01 Long term (current) use of anticoagulants; Z79.1 Long term (current) use of non-steroidal anti-inflammatories (NSAID); Z79.84 Long term (current) use of oral hypoglycemic drugs; Z79.899 Other long term (current) drug therapy; Z85.038 Personal history of other malignant neoplasm of large intestine; Z86.711 Personal history of pulmonary embolism; Z87.891 Personal history of nicotine dependence; Z96.653 Presence of artificial knee joint, bilateral; Z98.42 Cataract extraction status, left eye; Z98.41 Cataract extraction status, right eye; Z90.49 Acquired absence of other specified parts of digestive tract; Z87.19 Personal history of other diseases of the digestive system; Z86.010 Personal history of colon polyps; Z87.820 Personal history of traumatic brain injury
CPT/HCPCS: 32555; 36415; 71045; 71046; 76604; 80048; 80053; 82150; 82945; 83605; 83615; 83735; 83880; 84157; 84484; 85025; 85610; 85730; 87070; 87075; 87102; 87116; 87205; 87206; 87502; 87635; 89050; 93005; 94640; 94760; 96365; 96375; 99285

== ENCOUNTER 2022-04-27 10:43 | Emergency (ER) | payer MEDICARE, OTHER ==
[2022-04-27 10:54] VITALS: TEMP 98.8
[2022-04-27 11:32] VITALS: RESP 20
--- NOTE | 2022-04-27 11:35 | ED ---
General Adult HPI - General Chief complaint: Shortness of Breath Stated complaint: SOB Time Seen by Provider: 04/27/22 10:50 Source: patient, RN notes reviewed, old records reviewed Mode of arrival: ambulatory Limitations: no limitations - History of Present Illness Initial comments: This is a 77-year-old male who presents emergency Department complaining of shortness of breath. Patient states she was admitted to the hospital little over weeks ago and discharged 8 days ago. Patient states he's always been short of breath since she's been home but it seems of gotten worse over the last few days. Patient denies any fever chills per patient denies any chest pain or palpitations. Patient denies any cough. Patient denies any lightheadedness or dizziness. Patient denies any abdominal pain patient denies nausea vomiting diarrhea. Patient denies any swelling to the legs or calf tenderness. - Related Data Home Medications Medication Instructions Recorded Confirmed Atorvastatin [Lipitor] 20 mg PO HS 11/25/18 04/27/22 Albuterol Inhaler [Ventolin Hfa 1 puff INHALATION RT-Q4H PRN 05/01/21 04/27/22 Inhaler] Calcium Carbonate/Vitamin D3 1 tab PO BID 05/01/21 04/27/22 [Calcium 500-Vit D3 5 Mcg (200 Iu)] Cholecalciferol [Vitamin D3 (25 50 mcg PO DAILY 05/01/21 04/27/22 Mcg = 1000 Iu)] Fluticasone Propion/Salmeterol 1 puff INHALATION RT-BID 05/01/21 04/27/22 [Advair 250-50 Diskus] Omeprazole [PriLOSEC] 20 mg PO AC-[id number] 05/01/21 04/27/22 Potassium Chloride [Klor-Con 10 ER] 10 meq PO DAILY 05/01/21 04/27/22 Tamsulosin [Flomax] 0.4 mg PO HS 05/01/21 04/27/22 Leflunomide [Arava] 20 mg PO DAILY 10/30/21 04/27/22 Albuterol Nebulized [Ventolin 2.5 mg INHALATION RT-Q4H PRN 02/14/22 04/27/22 Nebulized] Tiotropium 2.5 Mcg/Puff [Spiriva 2 puff INHALATION RT-DAILY 02/14/22 04/27/22 Respimat 2.5 Mcg] metFORMIN HCL ER [Glucophage XR] 500 mg PO DAILY 02/14/22 04/27/22 Ketoconazole 2% Shampoo [Nizoral] 1 applic TOPICAL MOWEFR 04/18/22 04/27/22 Previous Rx's Medication Instructions Recorded Apixaban [Eliquis] 5 mg PO BID #60 tab 02/15/22 Metoprolol Tartrate [Lopressor] 25 mg PO BID #60 tab 02/17/22 Allergies Allergy/AdvReac Type Severity Reaction Status Date / Time No Known Allergies Allergy Verified 04/27/22 13:27 Review of Systems ROS Statement: Those systems with pertinent positive or pertinent negative responses have been documented in the HPI. ROS Other: All systems not noted in ROS Statement are negative. Past Medical History Past Medical History: Cancer, Eye Disorder, Prostate Disorder, Pulmonary Embolus (PE), Rheumatoid Arthritis (RA) Additional Past Medical History / Comment(s): 2014 R sided PE, bilateral chronic lung nodules, "leaky heart valve", BPH, skin cancer (melanoma) with removals, malignant colon polyps removed, headaches since CHI, bilateral cataracts with removal. History of Any Multi-Drug Resistant Organisms: None Reported Past Surgical History: Appendectomy, Cholecystectomy, Heart Catheterization, Joint Replacement, Orthopedic Surgery Additional Past Surgical History / Comment(s): R knee arthroscopy, bilateral total knee arthroplasties, R shoulder rotator cuff repair, L knee replacement, bilateral elbow surgery, R hand partial amputation d/t injury, colonoscopy with 2 cancerous polypectomies, skin cancer removed, EGD Past Anesthesia/Blood Transfusion Reactions: No Reported Reaction Additional Past Anesthesia/Blood Transfusion Reaction / Comment(s): Pt has never recieved blood. Past Psychological History: No Psychological Hx Reported Smoking Status: Former smoker Past Alcohol Use History: None Reported Past Drug Use History: None Reported - Past Family History Son(s) Family Medical History: Deep Vein Thrombosis (DVT) Father Family Medical History: Cancer Additional Family Medical History / Comment(s): Father of lymphoma at age 70 yrs. Mother Family Medical History: Cancer Additional Family Medical History / Comment(s): Mother had breast cancer. She at age 88yrs. General Exam - General Exam Comments Initial Comments: GENERAL: Patient is well-developed and well-nourished. Patient is nontoxic and well- hydrated and is in mild distress. ENT: Neck is soft and supple. No significant lymphadenopathy is noted. Oropharynx i s clear. Moist mucous membranes. Neck has full range of motion without eliciting any pain. EYES: The sclera were anicteric and conjunctiva were pink and moist. Extraocular movements were intact and pupils were equal round and reactive to light. Eyelids were unremarkable. PULMONARY: Unlabored respirations. Good breath sounds bilaterally. No audible rales rhonchi or wheezing was noted. CARDIOVASCULAR: There is a regular rate and rhythm without any murmurs gallops or rubs. ABDOMEN: Soft and nontender with normal bowel sounds. SKIN: Skin is clear with no lesions or rashes and otherwise unremarkable. NEUROLOGIC: Patient is alert and oriented x3. Cranial nerves II through XII are grossly intact. Motor and sensory are also intact. Normal speech, volume and content. Symmetrical smile. MUSCULOSKELETAL: Normal extremities with adequate strength and full range of motion. LYMPHATICS: No significant lymphadenopathy is noted PSYCHIATRIC: Normal psychiatric evaluation. Limitations: no limitations Course Vital Signs 04/27/22 04/27/22 04/27/22 10:52 11:27 13:20 Temperature 98.8 F Pulse Rate 85 76 Respiratory 22 20 20 Rate Blood Pressure 130/81 137/70 O2 Sat by Pulse 96 96 Oximetry Medical Decision Making - Medical Decision Making EKG shows sinus rhythm at 60 bpm NC interval 263 QRS is 91 QT interval 45 QTC is 422. Patient's EKG shows no ST segment elevation or depression. Patient has COVID. Patient states she's been having symptoms for over a week so there is no treatment indications this time. I will begin the room to reevaluate the patient he stated he felt good enough to go home at this time. - Lab Data Result diagrams: 04/27/22 11:41 04/27/22 11:41 Lab Results 04/27/22 04/27/22 04/27/22 Range/Units 11:41 11:41 11:41 WBC 4.3 (3.8-10.6) k/uL RBC 4.54 (4.30-5.90) m/uL Hgb 12.0 L (13.0-17.5) gm/dL Hct 36.8 L (39.0-53.0) % MCV 81.1 (80.0-100.0) fL MCH 26.5 (25.0-35.0) pg MCHC 32.7 (31.0-37.0) g/dL RDW 15.7 H (11.5-15.5) % Plt Count 232 (150-450) k/uL MPV 8.9 Neutrophils % 59 % Lymphocytes % 31 % Monocytes % 8 % Eosinophils % 1 % Basophils % 1 % Neutrophils # 2.5 (1.3-7.7) k/uL Lymphocytes # 1.3 (1.0-4.8) k/uL Monocytes # 0.3 (0-1.0) k/uL Eosinophils # 0.0 (0-0.7) k/uL Basophils # 0.0 (0-0.2) k/uL PT 10.3 (9.0-12.0) sec INR 0.9 (<1.2) APTT 25.7 (22.0-30.0) sec D-Dimer 0.33 (<0.60) mg/L FEU Sodium 139 (137-145) mmol/L Potassium 4.5 (3.5-5.1) mmol/L Chloride 107 (98-107) mmol/L Carbon Dioxide 24 (22-30) mmol/L Anion Gap 8 mmol/L BUN 14 (9-20) mg/dL Creatinine 0.74 (0.66-1.25) mg/dL Est GFR (CKD-EPI)AfAm >90 (>60 ml/min/1.73 sqM) Est GFR (CKD-EPI)NonAf 89 (>60 ml/min/1.73 sqM) Glucose 111 H (74-99) mg/dL Plasma Lactic Acid Jarret (0.7-2.0) mmol/L Calcium 8.9 (8.4-10.2) mg/dL Total Bilirubin 0.7 (0.2-1.3) mg/dL AST 28 (17-59) U/L ALT 26 (4-49) U/L Alkaline Phosphatase 178 H (38-126) U/L Troponin I (0.000-0.034) ng/mL NT-Pro-B Natriuret Pep pg/mL Total Protein 5.7 L (6.3-8.2) g/dL Albumin 3.5 (3.5-5.0) g/dL Coronavirus (PCR) (Not Detectd) 04/27/22 04/27/22 04/27/22 Range/Units 11:41 11:41 11:41 WBC (3.8-10.6) k/uL RBC (4.30-5.90) m/uL Hgb (13.0-17.5) gm/dL Hct (39.0-53.0) % MCV (80.0-100.0) fL MCH (25.0-35.0) pg MCHC (31.0-37.0) g/dL RDW (11.5-15.5) % Plt Count (150-450) k/uL MPV Neutrophils % % Lymphocytes % % Monocytes % % Eosinophils % % Basophils % % Neutrophils # (1.3-7.7) k/uL Lymphocytes # (1.0-4.8) k/uL Monocytes # (0-1.0) k/uL Eosinophils # (0-0.7) k/uL Basophils # (0-0.2) k/uL PT (9.0-12.0) sec INR (<1.2) APTT (22.0-30.0) sec D-Dimer (<0.60) mg/L FEU Sodium (137-145) mmol/L Potassium (3.5-5.1) mmol/L Chloride (98-107) mmol/L Carbon Dioxide (22-30) mmol/L Anion Gap mmol/L BUN (9-20) mg/dL Creatinine (0.66-1.25) mg/dL Est GFR (CKD-EPI)AfAm (>60 ml/min/1.73 sqM) Est GFR (CKD-EPI)NonAf (>60 ml/min/1.73 sqM) Glucose (74-99) mg/dL Plasma Lactic Acid Jarret 1.5 (0.7-2.0) mmol/L Calcium (8.4-10.2) mg/dL Total Bilirubin (0.2-1.3) mg/dL AST (17-59) U/L ALT (4-49) U/L Alkaline Phosphatase (38-126) U/L Troponin I <0.012 (0.000-0.034) ng/mL NT-Pro-B Natriuret Pep 218 pg/mL Total Protein (6.3-8.2) g/dL Albumin (3.5-5.0) g/dL Coronavirus (PCR) (Not Detectd) 04/27/22 Range/Units 11:41 WBC (3.8-10.6) k/uL RBC (4.30-5.90) m/uL Hgb (13.0-17.5) gm/dL Hct (39.0-53.0) % MCV (80.0-100.0) fL MCH (25.0-35.0) pg MCHC (31.0-37.0) g/dL RDW (11.5-15.5) % Plt Count (150-450) k/uL MPV Neutrophils % % Lymphocytes % % Monocytes % % Eosinophils % % Basophils % % Neutrophils # (1.3-7.7) k/uL Lymphocytes # (1.0-4.8) k/uL Monocytes # (0-1.0) k/uL Eosinophils # (0-0.7) k/uL Basophils # (0-0.2) k/uL PT (9.0-12.0) sec INR (<1.2) APTT (22.0-30.0) sec D-Dimer (<0.60) mg/L FEU Sodium (137-145) mmol/L Potassium (3.5-5.1) mmol/L Chloride (98-107) mmol/L Carbon Dioxide (22-30) mmol/L Anion Gap mmol/L BUN (9-20) mg/dL Creatinine (0.66-1.25) mg/dL Est GFR (CKD-EPI)AfAm (>60 ml/min/1.73 sqM) Est GFR (CKD-EPI)NonAf (>60 ml/min/1.73 sqM) Glucose (74-99) mg/dL Plasma Lactic Acid Jarret (0.7-2.0) mmol/L Calcium (8.4-10.2) mg/dL Total Bilirubin (0.2-1.3) mg/dL AST (17-59) U/L ALT (4-49) U/L Alkaline Phosphatase (38-126) U/L Troponin I (0.000-0.034) ng/mL NT-Pro-B Natriuret Pep pg/mL Total Protein (6.3-8.2) g/dL Albumin (3.5-5.0) g/dL Coronavirus (PCR) Detected A (Not Detectd) Disposition Clinical Impression: COVID-19 Disposition: HOME SELF-CARE Condition: Good Instructions (If sedation given, give patient instructions): COVID-19 (Coronavirus Disease 2019) (ED) Is patient prescribed a controlled substance at d/c from ED?: No Referrals: [facility] [Primary Care Provider] - 1-2 days Time of Disposition: 14:07
[2022-04-27 11:52] LABS: Basophils % (A) 1 %; Eosinophils % (A) 1 %; HCT 36.8 % (39.0-53.0); Lymphocytes # (A) 1.3 k/uL (1.0-4.8); Lymphocytes % (A) 31 %; MCH 26.5 pg (25.0-35.0); MCHC 32.7 g/dL (31.0-37.0); MCV 81.1 fL (80.0-100.0); Mean Platelet Volume 8.9; Monocytes # (A) 0.3 k/uL (0-1.0); Monocytes % (A) 8 %; Neutrophils # (A) 2.5 k/uL (1.3-7.7); Neutrophils % (A) 59 %; Platelet Count 232 k/uL (150-450); RBC 4.54 m/uL (4.30-5.90); RDW 15.7 % (11.5-15.5); WBC 4.3 k/uL (3.8-10.6)
--- NOTE | 2022-04-27 12:00 | XR ---
EXAMINATION TYPE: XR chest 2V DATE OF EXAM: 04/27/2022 11:51 AM COMPARISON: Chest radiographs from 04/20/2022. TECHNIQUE: XR chest 2V Frontal and lateral views of the chest. CLINICAL INDICATION:Male, 77 years old with history of difficulty breathing; FINDINGS: Lungs/Pleura: No pneumothorax. Unchanged blunting of the right costophrenic angle. Bandlike areas of increased attenuation within the right chest redemonstrated. Surgical clips present in the thoracic i nlet on the left. Pulmonary vascularity: Unremarkable. Heart/mediastinum: Cardiomediastinal silhouette is stable. Musculoskeletal: No acute osseous pathology. Left shoulder prosthesis redemonstrated. IMPRESSION: Relatively unchanged [id number] right pleural effusion with associated scarring or atelectasis compared to prior exam of 04/20/2022.
[2022-04-27 12:04] LABS: ALT 26 U/L (4-49); AST 28 U/L (17-59); African American GFR (CKD) >90 (>60 ml/min/1.73 sqM); Albumin 3.5 g/dL (3.5-5.0); Alkaline Phosphatase 178 U/L (38-126); Anion Gap 8 mmol/L; Blood Urea Nitrogen 14 mg/dL (9-20); Calcium 8.9 mg/dL (8.4-10.2); Carbon Dioxide 24 mmol/L (22-30); Chloride 107 mmol/L (98-107); Glucose 111 mg/dL (74-99); Non-African American GFR(CKD) 89 (>60 ml/min/1.73 sqM); Potassium 4.5 mmol/L (3.5-5.1); Sodium 139 mmol/L (137-145); Total Bilirubin 0.7 mg/dL (0.2-1.3); Total Protein 5.7 g/dL (6.3-8.2)
[2022-04-27 12:05] LABS: INR 0.9 (<1.2); Partial Thromboplastin Time 25.7 sec (22.0-30.0); Prothrombin Time 10.3 sec (9.0-12.0)
[2022-04-27 13:24] VITALS: BP 137/70; PULSE 76
== END 2022-04-27 14:19 | disposition home or self-care (01) ==
LOC: EC 10:43
DX: U07.1 COVID-19 (principal); M06.9 Rheumatoid arthritis, unspecified; Z86.711 Personal history of pulmonary embolism; Z87.891 Personal history of nicotine dependence
CPT/HCPCS: 36415; 71046; 80053; 83605; 83880; 84484; 85025; 85379; 85610; 85730; 87635; 93005; 99285

== ENCOUNTER 2022-05-04 10:19 | Inpatient (IN) | payer OTHER, MEDICARE ==
[2022-05-04] MEDS ORDERED: IPRATROPIUM-ALBUTEROL 3 ML NEB INHALATION STA (10:40)
[2022-05-04] MEDS ORDERED: ASPIRIN 81 MG PO STA (10:41)
[2022-05-04] MEDS ORDERED: NITROGLYCERIN OINT 1 INCH/GM PACKET TOPICAL STA (10:41)
[2022-05-04 11:55] LABS: ALT 20 U/L (4-49); AST 22 U/L (17-59); African American GFR (CKD) >90 (>60 ml/min/1.73 sqM); Alkaline Phosphatase 198 U/L (38-126); Anion Gap 12 mmol/L; Blood Urea Nitrogen 13 mg/dL (9-20); Calcium 9.4 mg/dL (8.4-10.2); Carbon Dioxide 21 mmol/L (22-30); Chloride 109 mmol/L (98-107); Glucose 110 mg/dL (74-99); Non-African American GFR(CKD) >90 (>60 ml/min/1.73 sqM); Potassium 4.4 mmol/L (3.5-5.1); Sodium 142 mmol/L (137-145); Total Bilirubin 1.1 mg/dL (0.2-1.3); Total Protein 6.5 g/dL (6.3-8.2)
--- NOTE | 2022-05-04 11:59 | XR ---
EXAMINATION TYPE: XR chest 2V DATE OF EXAM: 05/04/2022 COMPARISON: Chest x-ray 04/27/2022 HISTORY: Difficulty breathing TECHNIQUE: Frontal and lateral views of the chest are obtained. FINDINGS: Findings are similar to prior exam. There is blunting of the costophrenic angle as on prio r on the right. No evident pneumothorax. Probable scarring present in the right lung. Cardiac mediast inal silhouette is stable. Postop changes are noted to the left shoulder. IMPRESSION: Findings are similar to prior exam. Chronic right pleural effusion, scarring in the righ t lung.
--- NOTE | 2022-05-04 12:08 | ED ---
Chest Pain HPI - General Chief Complaint: Chest Pain Stated Complaint: sob, chest pain - sent by pcp Time Seen by Provider: 05/04/22 10:31 Source: patient Mode of arrival: ambulatory Limitations: no limitations - History of Present Illness Initial Comments: This 77-year-old male presents with a complaint of some shortness of breath and chest pain. He states that this is been somewhat of a chronic problem over the past several months. He apparently will develop a right pleural effusion. He has had this drained 3 times usually one month apart for the last 3 months. Over the past several weeks is shortness breath is present presently gotten worse. He also is having some gripping type of pain in his midsternal region which is nonpleuritic and nonradiating. He does have a history of previous COPD. He denies any leg pain or swelling. He denies any fevers or chills. No other complaints or modifying factors. does give most of history. She relates that the patient does have a history of previous melanoma. They are unsure of the cause of the right pleural effusion. The patient apparently had the previous effusion fluid analyzed there is no evidence of cancer. In addition, he was seen in the emergency department one week ago and was diagnosed with home at 19 on 05/07/2022. - Related Data Home Medications Medication Instructions Recorded Confirmed Atorvastatin [Lipitor] 20 mg PO HS 11/25/18 04/27/22 Albuterol Inhaler [Ventolin Hfa 1 puff INHALATION RT-Q4H PRN 05/01/21 04/27/22 Inhaler] Calcium Carbonate/Vitamin D3 1 tab PO BID 05/01/21 04/27/22 [Calcium 500-Vit D3 5 Mcg (200 Iu)] Cholecalciferol [Vitamin D3 (25 50 mcg PO DAILY 05/01/21 04/27/22 Mcg = 1000 Iu)] Fluticasone Propion/Salmeterol 1 puff INHALATION RT-BID 05/01/21 04/27/22 [Advair 250-50 Diskus] Omeprazole [PriLOSEC] 20 mg PO AC-BRKFST 05/01/21 04/27/22 Potassium Chloride [Klor-Con 10 ER] 10 meq PO DAILY 05/01/21 04/27/22 Tamsulosin [Flomax] 0.4 mg PO HS 05/01/21 04/27/22 Leflunomide [Arava] 20 mg PO DAILY 10/30/21 04/27/22 Albuterol Nebulized [Ventolin 2.5 mg INHALATION RT-Q4H PRN 02/14/22 04/27/22 Nebulized] Tiotropium 2.5 Mcg/Puff [Spiriva 2 puff INHALATION RT-DAILY 02/14/22 04/27/22 Respimat 2.5 Mcg] metFORMIN HCL ER [Glucophage XR] 500 mg PO DAILY 02/14/22 04/27/22 Ketoconazole 2% Shampoo [Nizoral] 1 applic TOPICAL MOWEFR 04/18/22 04/27/22 Previous Rx's Medication Instructions Recorded Apixaban [Eliquis] 5 mg PO BID #60 tab 02/15/22 Metoprolol Tartrate [Lopressor] 25 mg PO BID #60 tab 02/17/22 Allergies Allergy/AdvReac Type Severity Reaction Status Date / Time No Known Allergies Allergy Verified 05/04/22 10:23 Review of Systems ROS Statement: Those systems with pertinent positive or pertinent negative responses have been documented in the HPI. ROS Other: All systems not noted in ROS Statement are negative. Past Medical History Past Medical History: Cancer, Eye Disorder, Prostate Disorder, Pulmonary Embolus (PE), Rheumatoid Arthritis (RA) Additional Past Medical History / Comment(s): 2014 R sided PE, bilateral chronic lung nodules, "leaky heart valve", BPH, skin cancer (melanoma) with removals, malignant colon polyps removed, headaches since CHI, bilateral cataracts with removal. History of Any Multi-Drug Resistant Organisms: None Reported Past Surgical History: Appendectomy, Cholecystectomy, Heart Catheterization, Joint Replacement, Orthopedic Surgery Additional Past Surgical History / Comment(s): R knee arthroscopy, bilateral total knee arthroplasties, R shoulder rotator cuff repair, L knee replacement, bilateral elbow surgery, R hand partial amputation d/t injury, colonoscopy with 2 cancerous polypectomies, skin cancer removed, EGD Past Anesthesia/Blood Transfusion Reactions: No Reported Reaction Additional Past Anesthesia/Blood Transfusion Reaction / Comment(s): Pt has never recieved blood. Past Psychological History: No Psychological Hx Reported Smoking Status: Former smoker Past Alcohol Use History: None Reported Past Drug Use History: None Reported - Past Family History Son(s) Family Medical History: Deep Vein Thrombosis (DVT) Father Family Medical History: Cancer Additional Family Medical History / Comment(s): Father of lymphoma at age 70 yrs. Mother Family Medical History: Cancer Additional Family Medical History / Comment(s): Mother had breast cancer. She at age 88yrs. General Exam - General Exam Comments Initial Comments: GENERAL: The patient is well nourished and well hydrated. VITAL SIGNS: Heart rate, blood pressure, respiratory rate reviewed as recorded in nurse's notes. EYES: Pupils are round and reactive. Extraocular movements are intact. No conjunctival / lid redness or swelling. ENT: No external evidence of injury, swelling, or ecchymosis. Airway is patent. Throat is clear. NECK: Nontender. No swelling or evidence of injury. No subcutaneous emphysema. Trachea is midline. No thyroid mass. HEART: Regular rate and rhythm. Good peripheral pulses. LUNGS/CHEST: Breath sounds clear and equal bilaterally. No rales, rhonchi, or wheezes. No ecchymosis, subcutaneous emphysema, or tenderness. ABDOMEN: Abdomen soft without tenderness. No palpable masses or organomegaly. No peritoneal signs. No abdominal wall swelling or ecchymosis. EXTREMITIES: No extremity tenderness. Normal muscle tone and function. No thoracolumbar tenderness. NEUROLOGIC: Sensation is grossly intact. Cranial nerve exam reveals face is symmetrical, tongue is midline, speech is clear. SKIN: No abrasions or ecchymosis is noted. No induration or masses noted. PSYCHIATRIC: Alert and oriented. Appropriate behavior and judgment. 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 All diagnostics were reviewed. EKG is done and this shows a normal sinus rhythm at a rate of 73. There is some downward sloping T waves noted in leads 2 and 3 which is new as compared to previous exams. The laboratory does not show any acute significant abnormalities. The urinalysis is ordered and is pending. He does receive a DuoNeb breathing treatment. He later developed some shaking. Upon evaluation, he has a normal temperature again. He appears anxious. He is given Ativan 1 mg IV. His chest x-ray does show evidence of the right pleural effusion which is essentially unchanged from last week. It is felt as though he would require admission to the hospital for further treatment as he is having chest pain and acute coronary syndrome would need to be ruled out. The cause of the dyspnea is not definitively determine but it potentially could be related to the effusion again. It is felt as though he didn't she could have COPD exacerbation as well. Case is discussed with internal medicine and he is agreeable with admission with cardiology to consult. Disposition Clinical Impression: Chest pain, Dyspnea, Recurrent right pleural effusion, Unstable angina, Anxiety, History of COVID-19, Acute electrocardiogram changes Disposition: ADMITTED IP TO THIS HOSP Condition: Fair Referrals: [facility],Clinic [Primary Care Provider] - 1-2 days
[2022-05-04 13:02] LABS: Basophils % (A) 1 %; Eosinophils % (A) 0 %; HCT 39.4 % (39.0-53.0); HGB 12.6 gm/dL (13.0-17.5); Hypochromasia Slight; Lymphocytes # (A) 1.4 k/uL (1.0-4.8); Lymphocytes % (A) 26 %; MCH 26.4 pg (25.0-35.0); MCV 82.6 fL (80.0-100.0); Monocytes # (A) 0.5 k/uL (0-1.0); Monocytes % (A) 8 %; Neutrophils # (A) 3.5 k/uL (1.3-7.7); Neutrophils % (A) 64 %; Platelet Count 254 k/uL (150-450); RBC 4.77 m/uL (4.30-5.90); RDW 15.8 % (11.5-15.5); WBC 5.5 k/uL (3.8-10.6)
[2022-05-04] MEDS ORDERED: ACETAMINOPHEN TAB 500 MG TAB PO STA (13:22)
[2022-05-04 13:24] LABS: Prothrombin Time 11.1 sec (9.0-12.0)
[2022-05-04] MEDS ORDERED: LORazepam 2 MG/ML INJ IV STA (13:26)
[2022-05-04] MEDS ORDERED: NALOXONE 0.4 MG/ML 1 ML VIAL IV PRN (13:39)
[2022-05-04] MEDS ORDERED: ONDANSETRON 4 MG/2 ML VIAL IVP PRN (13:39)
[2022-05-04] MEDS ORDERED: ACETAMINOPHEN TAB 325 MG TAB PO PRN (13:39)
[2022-05-04] MEDS ORDERED: NITROGLYCERIN OINT 1 INCH/GM PACKET TOPICAL SCH (13:45)
[2022-05-04 14:03] LABS: Partial Thromboplastin Time 20.3 sec (22.0-30.0)
[2022-05-04 14:20] LABS: Amorphous Sediment,Urine Rare /hpf; Appearance,Urine Cloudy (Clear); Bilirubin,Urine Negative (Negative); Blood,Urine Negative (Negative); Calcium Oxalate Crystals,Urine Occasional /hpf; Color,Urine Yellow; Glucose,Urine (UA) Negative (Negative); Ketones,Urine Trace (Negative); Leukocyte Esterase,Urine Large (Negative); Mucus,Urine Many /hpf; Nitrite,Urine Negative (Negative); PH, Urine 5.5 (5.0-8.0); Protein,Urine Trace (Negative); RBC,Urine 9 /hpf (0-5); Specific Gravity,Urine 1.022 (1.001-1.035); Squamous Epithelial Cell,Urine <1 /hpf (0-4); WBC,Urine 34 /hpf (0-5)
[2022-05-04] MEDS ORDERED: ALBUTEROL NEBULIZED 2.5 MG/3 ML INHALATION PRN (14:21)
[2022-05-04] MEDS ORDERED: ALBUTEROL HFA INHALER INHALATION PRN (14:21)
--- NOTE | 2022-05-04 17:40 | P.HPIM ---
History of Present Illness H&P Date: 05/04/22 Patient is a 77-year-old male with PMH of COPD, melanoma status post resection, history of pulmonary embolus on Eliquis, recurrent right-sided pleural effusion, rheumatoid arthritis and type 2 diabetes mellitus who presents the ED for shortness of breath. Patient has had multiple hospital admissions, most recently on April 18 and discharged on April 20. Since his discharge, patient reports shortness of breath, worsened with exertion has been progressively getting worse. Today he was at his PCP clinic at [facility] when he started experiencing substernal chest pain. He describes the chest pain to be pressure-like in nature with no radiation. There is no alleviating or aggravating factors. Pain had no radiation. These symptoms prompted him to come to the ED. He denies any headache, lower extremity edema, nausea or vomiting, fever or chills, cough, palpitations, changes in urination or bowel habits. He reports a decrease in appetite and subjective weight loss. He denies any dizziness, numbness/weakness/tingling of the extremities. In the ED, his vital signs were stable, though tachycardic with heart rate in the 90s. CBC showed hemoglobin of 12.6. INR was 1. CMP showed chloride of 109, bicarb of 21, glucose 110, alkaline phosphatase of 198. BNP was 219. Troponin was less than 0.0122. I was unable to pull up the EKG in the EMR. Urinalysis showed large leukocyte esterase. Chest x-ray showed chronic right pleural effusion. Review of systems is performed and is negative except above. General: non toxic, no distress, appears at stated age Derm: warm, dry Head: atraumatic, normocephalic, symmetric Eyes: EOMI, no lid lag, anicteric sclera Mouth: no lip lesion, mucus membranes moist Cardiovascular: S1S2 reg, no murmur, positive DP pulse bilateral, Lungs: Decreased breath sounds bilateral, no rhonchi, no rales , no accessory muscle use Abdominal: soft, nontender to palpation, no guarding, no appreciable organomegaly Ext: no gross muscle atrophy, no edema, no contractures, transmetatarsal amputation right hand Neuro: CN II-XI grossly intact, no focal neuro deficits Psych: Alert, oriented, appropriate affect #Shortness of breath, multifactorial, likely related to COPD, pulmonary embolus, recurrent right-sided pleural effusion #Chest pain #Abnormal urinalysis Chronic condition: Rheumatoid arthritis, diabetes mellitus Patient presents with progressively worsening shortness of breath. This is likely related to right-sided pleural effusion that is seen on chest x-ray. Pathology results from previous admission shows no malignancy. Pulmonology will be consulted for further management of this patient. We will obtain chest ultrasound. Continue albuterol neb as needed for shortness of breath and wheezing. Restart Tiotropium and Symbicort. Restart Eliquis for history of DVT. Supplemental O2 to maintain O2 saturation greater than 92%. Trend troponin/EKG to rule out ACS. Echocardiogram from 10/2021 shows EF 50-55% with mild concentric LVH. Patient was given ASA 325 mg in the ED. Patient will be continued on Lipitor and Metoprolol. Telemetry monitoring. Cardiology consulted for futher management of this patient. Patient has no urinary symptoms. No need for antibiotics. DVT prophylaxis: [Eliquis] Discussed with: [Patient] Anticipated discharge: [2 days] Anticipated discharge place: [home] A total of [35] minutes was spent on the care of this complex patient more than 50% of the time was spent in counseling and care coordination. Patient names his decision-maker if he can't make decisions for himself. Patient would like to be no code. Past Medical History Past Medical History: Cancer, Eye Disorder, Prostate Disorder, Pulmonary Embolus (PE), Rheumatoid Arthritis (RA) Additional Past Medical History / Comment(s): 2014 R sided PE, bilateral chronic lung nodules, "leaky heart valve", BPH, skin cancer (melanoma) with removals, malignant colon polyps removed, headaches since CHI, bilateral cataracts with removal. History of Any Multi-Drug Resistant Organisms: None Reported Past Surgical History: Appendectomy, Cholecystectomy, Heart Catheterization, Joint Replacement, Orthopedic Surgery Additional Past Surgical History / Comment(s): R knee arthroscopy, bilateral total knee arthroplasties, R shoulder rotator cuff repair, L knee replacement, bilateral elbow surgery, R hand partial amputation d/t injury, colonoscopy with 2 cancerous polypectomies, skin cancer removed, EGD Past Anesthesia/Blood Transfusion Reactions: No Reported Reaction Additional Past Anesthesia/Blood Transfusion Reaction / Comment(s): Pt has never recieved blood. Past Psychological History: No Psychological Hx Reported Smoking Status: Former smoker Past Alcohol Use History: None Reported Past Drug Use History: None Reported - Past Family History Son(s) Family Medical History: Deep Vein Thrombosis (DVT) Father Family Medical History: Cancer Additional Family Medical History / Comment(s): Father of lymphoma at age 70 yrs. Mother Family Medical History: Cancer Additional Family Medical History / Comment(s): Mother had breast cancer. She at age 88yrs. Medications and Allergies Home Medications Medication Instructions Recorded Confirmed Type Atorvastatin [Lipitor] 20 mg PO HS 11/25/18 05/04/22 History Albuterol Inhaler [Ventolin Hfa 1 puff INHALATION RT-Q4H PRN 05/01/21 05/04/22 History Inhaler] Calcium Carbonate/Vitamin D3 1 tab PO BID 05/01/21 05/04/22 History [Calcium 500-Vit D3 5 Mcg (200 Iu)] Cholecalciferol [Vitamin D3 (25 50 mcg PO DAILY 05/01/21 05/04/22 History Mcg = 1000 Iu)] Fluticasone Propion/Salmeterol 1 puff INHALATION RT-BID 05/01/21 05/04/22 History [Advair 250-50 Diskus] Omeprazole [PriLOSEC] 20 mg PO AC-BRKFST 05/01/21 05/04/22 History Potassium Chloride [Klor-Con 10 ER] 10 meq PO DAILY 05/01/21 05/04/22 History Tamsulosin [Flomax] 0.4 mg PO HS 05/01/21 05/04/22 History Leflunomide [Arava] 20 mg PO DAILY 10/30/21 05/04/22 History Albuterol Nebulized [Ventolin 2.5 mg INHALATION RT-Q4H PRN 02/14/22 05/04/22 History Nebulized] Tiotropium 2.5 Mcg/Puff [Spiriva 2 puff INHALATION RT-DAILY 02/14/22 05/04/22 History Respimat 2.5 Mcg] metFORMIN HCL ER [Glucophage XR] 500 mg PO DAILY 02/14/22 05/04/22 History Apixaban [Eliquis] 5 mg PO BID #60 tab 02/15/22 05/04/22 Rx Metoprolol Tartrate [Lopressor] 25 mg PO BID #60 tab 02/17/22 05/04/22 Rx Ketoconazole 2% Shampoo [Nizoral] 1 applic TOPICAL MOWEFR 04/18/22 05/04/22 Hist ory Allergies Allergy/AdvReac Type Severity Reaction Status Date / Time No Known Allergies Allergy Verified 05/04/22 14:13 Physical Exam Vitals: Vital Signs Temp Pulse Pulse Resp BP Pulse Ox 05/04/22 16:56 97.8 F 98 16 142/82 98 05/04/22 12:43 80 05/04/22 12:33 79 05/04/22 10:33 89 05/04/22 10:20 97.7 F 102 H 20 126/70 97 Intake and Output 05/04/22 05/04/22 05/04/22 06:59 14:59 22:59 Other: Weight 86.183 kg Results CBC & Chem 7: 05/04/22 12:19 05/04/22 11:24 Labs: Abnormal Lab Results - Last 24 Hours (Table) 05/04/22 05/04/22 05/04/22 Range/Units 11:24 12:19 12:19 Hgb 12.6 L (13.0-17.5) gm/dL RDW 15.8 H (11.5-15.5) % APTT 20.3 L (22.0-30.0) sec Chloride 109 H (98-107) mmol/L Carbon Dioxide 21 L (22-30) mmol/L Glucose 110 H (74-99) mg/dL Alkaline Phosphatase 198 H (38-126) U/L Urine Protein (Negative) Urine Ketones (Negative) Ur Leukocyte Esterase (Negative) Urine RBC (0-5) /hpf Urine WBC (0-5) /hpf Calcium Oxalate Crystal (None) /hpf Amorphous Sediment (None) /hpf Urine Mucus (None) /hpf 05/04/22 Range/Units 13:15 Hgb (13.0-17.5) gm/dL RDW (11.5-15.5) % APTT (22.0-30.0) sec Chloride (98-107) mmol/L Carbon Dioxide (22-30) mmol/L Glucose (74-99) mg/dL Alkaline Phosphatase (38-126) U/L Urine Protein Trace H (Negative) Urine Ketones Trace H (Negative) Ur Leukocyte Esterase Large H (Negative) Urine RBC 9 H (0-5) /hpf Urine WBC 34 H (0-5) /hpf Calcium Oxalate Crystal Occasional H (None) /hpf Amorphous Sediment Rare H (None) /hpf Urine Mucus Many H (None) /hpf
[2022-05-04] MEDS: ALPRAZolam 0.25 MG TAB PO PRN (18:29)
[2022-05-04] MEDS: KETOCONAZOLE 2% SHAMPOO 1 APPLIC/ML TOPICAL SCH (18:44)
[2022-05-04] MEDS: SYMBICORT 80-4.5 MCG INHALER INHALATION SCH (20:16)
[2022-05-04] MEDS: METOPROLOL TARTRATE 25 MG TAB PO SCH (21:15)
[2022-05-04] MEDS: TAMSULOSIN 0.4 MG CAP.ER.24H PO SCH (21:15)
[2022-05-04] MEDS: CALCIUM CARB-VIT D 500 MG-5 MCG TAB PO SCH (21:15)
[2022-05-04] MEDS: APIXABAN 5 MG TAB PO SCH ×2 (21:16→21:18)
[2022-05-04] MEDS: ATORVASTATIN 20 MG TAB PO SCH (21:16)
--- NOTE | 2022-05-04 21:22 | US ---
EXAMINATION TYPE: US chest DATE OF EXAM: 05/04/2022 COMPARISON: XR Today CLINICAL HISTORY: R pleural effusion. R pleural effusion TECHNIQUE: Targeted ultrasound of the posterior lower bilateral hemithoraces EXAM MEASUREMENTS: Right Pleural Effusion pocket size: 6.6 cm Right skin surface to fluid distance: 1.9 cm Left Pleural Effusion pocket size: 0 cm Right side marked for possible thoracentesis outside the dept. Pulmonologists are able to review the images in the patient?s EMR. IMPRESSIONS: There is moderate size right pleural effusion.
[2022-05-05] MEDS: PANTOPRAZOLE 40 MG TABLET PO SCH (06:34)
[2022-05-05] MEDS ORDERED: PANTOPRAZOLE 40 MG TABLET PO SCH (07:30)
[2022-05-05] MEDS: SYMBICORT 80-4.5 MCG INHALER INHALATION SCH ×2 (08:13→20:07)
[2022-05-05] MEDS: TIOTROPIUM 2.5 MCG INHALER INHALATION SCH (08:13)
[2022-05-05] MEDS ORDERED: ASPIRIN 325 MG TAB PO SCH (09:00)
[2022-05-05] MEDS ORDERED: ENOXAPARIN 40 MG/0.4 ML SYRINGE SQ SCH (09:00)
[2022-05-05] MEDS ORDERED: metFORMIN 500 MG TAB PO SCH (09:00)
[2022-05-05] MEDS: CHOLECALCIFEROL 25 MCG (1000 IU) TABLET PO SCH (09:07)
[2022-05-05] MEDS: CALCIUM CARB-VIT D 500 MG-5 MCG TAB PO SCH ×2 (09:07→20:13)
[2022-05-05] MEDS: METOPROLOL TARTRATE 25 MG TAB PO SCH ×2 (09:08→20:13)
[2022-05-05] MEDS: POTASSIUM CHLORIDE ER 10 MEQ TAB.ER.PRT PO SCH (09:08)
[2022-05-05] MEDS: ALPRAZolam 0.25 MG TAB PO PRN ×3 (09:12→20:13)
[2022-05-05] MEDS: LEFLUNOMIDE 20 MG TAB PO SCH (09:13)
[2022-05-05] MEDS: APIXABAN 5 MG TAB PO SCH (10:13)
--- NOTE | 2022-05-05 12:34 | P.CNPUL ---
History of Present Illness Consult date: 05/05/22 Reason for consult: dyspnea, pleural effusion Chief complaint: Shortness of breath History of present illness: This patient is well-known to me readmitted for recurrent pleural effusion. 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 Patient is a 77-year-old male with PMH of COPD, melanoma status post resection, history of pulmonary embolus on Eliquis, recurrent right-sided pleural effusion, rheumatoid arthritis and type 2 diabetes mellitus who presents the ED for shortness of breath. Patient has had multiple hospital admissions, most recently on April 18 and discharged on April 20. Since his discharge, patient reports shortness of breath, worsened with exertion has been progressively getting worse. Today he was at his PCP clinic at [facility] when he started experiencing substernal chest pain. He describes the chest pain to be pressure- like in nature with no radiation. There is no alleviating or aggravating factors. Pain had no radiation. These symptoms prompted him to come to the ED. He denies any headache, lower extremity edema, nausea or vomiting, fever or chills, cough, palpitations, changes in urination or bowel habits. He reports a decrease in appetite and subjective weight loss. He denies any dizziness, numbness/weakness/tingling of the extremities. In the ED, his vital signs were stable, though tachycardic with heart rate in the 90s. CBC showed hemoglobin of 12.6. INR was 1. CMP showed chloride of 109, bicarb of 21, glucose 110, alkaline phosphatase of 198. BNP was 219. Troponin was less than 0.0122. I was unable to pull up the EKG in the EMR. Urinalysis showed large leukocyte esterase. Chest x-ray showed chronic moderate right pleural effusion. Currently patient is being treated with bronchodilators as needed, being continued on the direct oral anticoagulant which is currently on hold for anticipation of thoracentesis Review of Systems All systems: negative Past Medical History Past Medical History: Cancer, Eye Disorder, Prostate Disorder, Pulmonary Embolus (PE), Rheumatoid Arthritis (RA) Additional Past Medical History / Comment(s): 2015 R sided PE, bilateral chronic lung nodules, "leaky heart valve", BPH, skin cancer (melanoma) with removals, malignant colon polyps removed, headaches since CHI, bilateral cataracts with re moval. As of 05/04/2022-thoracentesis x3. History of Any Multi-Drug Resistant Organisms: None Reported Past Surgical History: Appendectomy, Cholecystectomy, Heart Catheterization, Joint Replacement, Orthopedic Surgery Additional Past Surgical History / Comment(s): R knee arthroscopy, bilateral total knee arthroplasties, R shoulder rotator cuff repair, L knee replacement, bilateral elbow surgery, R hand partial amputation d/t injury, colonoscopy with 2 cancerous polypectomies, skin cancer removed, EGD Past Anesthesia/Blood Transfusion Reactions: No Reported Reaction Additional Past Anesthesia/Blood Transfusion Reaction / Comment(s): Pt has never recieved blood. Smoking Status: Former smoker - Past Family History Son(s) Family Medical History: Deep Vein Thrombosis (DVT) Father Family Medical History: Cancer Additional Family Medical History / Comment(s): Father of lymphoma at age 70 yrs. Mother Family Medical History: Cancer Additional Family Medical History / Comment(s): Mother had breast cancer. She at age 88yrs. Medications and Allergies Home Medications Medication Instructions Recorded Confirmed Type Atorvastatin [Lipitor] 20 mg PO HS 11/25/18 05/04/22 History Albuterol Inhaler [Ventolin Hfa 1 puff INHALATION RT-Q4H PRN 05/01/21 05/04/22 History Inhaler] Calcium Carbonate/Vitamin D3 1 tab PO BID 05/01/21 05/04/22 History [Calcium 500-Vit D3 5 Mcg (200 Iu)] Cholecalciferol [Vitamin D3 (25 50 mcg PO DAILY 05/01/21 05/04/22 History Mcg = 1000 Iu)] Fluticasone Propion/Salmeterol 1 puff INHALATION RT-BID 05/01/21 05/04/22 History [Advair 250-50 Diskus] Omeprazole [PriLOSEC] 20 mg PO AC-BRKFST 05/01/21 05/04/22 History Potassium Chloride [Klor-Con 10 ER] 10 meq PO DAILY 05/01/21 05/04/22 History Tamsulosin [Flomax] 0.4 mg PO HS 05/01/21 05/04/22 History Leflunomide [Arava] 20 mg PO DAILY 10/30/21 05/04/22 History Albuterol Nebulized [Ventolin 2.5 mg INHALATION RT-Q4H PRN 02/14/22 05/04/22 History Nebulized] Tiotropium 2.5 Mcg/Puff [Spiriva 2 puff INHALATION RT-DAILY 02/14/22 05/04/22 History Respimat 2.5 Mcg] metFORMIN HCL ER [Glucophage XR] 500 mg PO DAILY 02/14/22 05/04/22 History Apixaban [Eliquis] 5 mg PO BID #60 tab 02/15/22 05/04/22 Rx Metoprolol Tartrate [Lopressor] 25 mg PO BID #60 tab 02/17/22 05/04/22 Rx Ketoconazole 2% Shampoo [Nizoral] 1 applic TOPICAL MOWEFR 04/18/22 05/04/22 History Allergies Allergy/AdvReac Type Severity Reaction Status Date / Time No Known Allergies Allergy Verified 05/04/22 14:13 Physical Exam Vitals: Vital Signs Temp Pulse Pulse Resp BP BP BP 05/05/22 09:01 97.6 F 98 154/76 05/05/22 03:57 97.8 F 75 16 113/64 05/05/22 02:00 70 18 05/05/22 00:03 97.7 F 70 18 102/67 05/04/22 20:00 70 18 05/04/22 19:43 97.8 F 98 20 122/77 05/04/22 18:32 97.5 F L 119 H 18 158/87 05/04/22 16:56 97.8 F 98 16 142/82 05/04/22 12:43 80 05/04/22 12:33 79 Pulse Ox 05/05/22 09:01 99 05/05/22 03:57 99 05/05/22 02:00 05/05/22 00:03 98 05/04/22 20:00 05/04/22 19:43 98 05/04/22 18:32 98 05/04/22 16:56 98 05/04/22 12:43 05/04/22 12:33 Intake and Output 05/04/22 05/05/22 05/05/22 22:59 06:59 14:59 Intake Total 123 Output Total 200 100 Balance -200 23 Intake: IV 5 Invasive Line 1 5 Oral 118 Output: Urine 200 100 Other: Voiding Method Urinal Urinal Urinal # Voids 1 Weight 86.183 kg - Constitutional General appearance: average body habitus, cooperative, disheveled, mild distress - EENT Eyes: EOMI, PERRLA Ears: bilateral: normal - Neck Carotids: bilateral: upstroke normal Thyroid: negative: normal size - Respiratory Respiratory: right: diminished, dullness, left: rales - Cardiovascular Rhythm: regular Heart sounds: normal: S1, S2 - Gastrointestinal General gastrointestinal: normal bowel sounds - Integumentary Integumentary: normal turgor - Neurologic Neurologic: CNII-XII intact - Musculoskeletal Musculoskeletal: gait normal, generalized weakness, strength equal bilaterally - Psychiatric Psychiatric: A&O x's 3, appropriate affect, intact judgment & insight Results - Laboratory Findings CBC and BMP: 05/04/22 12:19 05/04/22 11:24 PT/INR, D-dimer PT 11.1 sec (9.0-12.0) 05/04/22 12:19 INR 1.0 (<1.2) 05/04/22 12:19 Abnormal lab findings: Abnormal Labs 05/04/22 05/04/22 05/04/22 11:24 12:19 12:19 Hgb 12.6 L RDW 15.8 H APTT 20.3 L Chloride 109 H Carbon Dioxide 21 L Glucose 110 H Alkaline Phosphatase 198 H Urine Protein Urine Ketones Ur Leukocyte Esterase Urine RBC Urine WBC Calcium Oxalate Crystal Amorphous Sediment Urine Mucus 05/04/22 13:15 Hgb RDW APTT Chloride Carbon Dioxide Glucose Alkaline Phosphatase Urine Protein Trace H Urine Ketones Trace H Ur Leukocyte Esterase Large H Urine RBC 9 H Urine WBC 34 H Calcium Oxalate Crystal Occasional H Amorphous Sediment Rare H Urine Mucus Many H - Diagnostic Findings Chest x-ray: report reviewed, image reviewed (Small to moderate right-sided pleural effusion noted on x-ray however ultrasound of the chest reviewed there is a small pleural effusion of 6.6 cm in size) Assessment and Plan Assessment: Right-sided chronic pleural effusion 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 These options were explained it to them no advice received from them Time with Patient: Greater than 30
--- NOTE | 2022-05-05 12:41 | P.CRDCN ---
History of Present Illness Consult date: 05/05/22 Consult reason: shortness of breath History of present illness: The patient is a 77-year-old male who presented to the emergency room with increased shortness of breath. The patient has undergone several thoracentesis in the last several months for chronic right pleural effusion. According to severe neural cardiology was consulted for chest discomfort, however the patient states he does not have any chest pain. He states cardiology was consulted during one of his previous admissions and he does have a follow-up appointments with our practice in the near future. DIAGNOSTICS: EKG shows sinus mechanism without acute ST or T wave abnormalities Chest x-ray shows chronic right pleural effusion and scarring of the right lung Chest ultrasound shows 6 cm pocket Lab data: WBC 5.5, hemoglobin 12.6, hematocrit 39.4, platelets 254, sodium 142, potassium 4.4, BUN 13, creatinine 0.71, AST 22, ALT 20, ALP 198, troponins negative 2, BNP 213, positive for urinary tract infection Echocardiogram in October 2021 shows normal LV function with mild aortic sclerosis, mild MR and mild TR Repeat limited echo in 02/15/2022 showed LV function at 50-55% PAST MEDICAL HISTORY: Chronic right pleural effusion, history of DVT/PE, melanoma REVIEW OF SYSTEMS: No fever or chills. No cough or expectoration. No diaphoresis. Patient denies headache, dizziness, blurred vision, double vision. Patient denies any stomach discomfort. No nausea, vomiting. No hematochezia. No hematemesis. Denies any black stools or blood in his stools. Denies dysuria or hematuria. No muscle weakness or numbness. No chest pain or chest pressure. Positive for shortness of breath. PHYSICAL EXAMINATION: This is a 77-year-old male in no apparent distress at the time of my examination. HEENT: Head is atraumatic, normocephalic. Pupils are equal, round. Sclerae anicteric. Conjunctivae are clear. Mucous membranes of the mouth are moist. Neck is supple. There is no jugular venous distention. No carotid bruit is heard. CHEST EXAMINATION: Lungs are diminished to auscultation. No chest wall tenderness is noted on palpation or with deep breathing. No rhonchi or wheezing. HEART EXAMINATION: Heart regular rate and rhythm. S1, S2 heard. No murmurs, gallops or rub. ABDOMEN: Soft, nontender. Bowel sounds are heard. No organomegaly noted. EXTREMITIES: 2+ peripheral pulses with no evidence of peripheral edema and no calf tenderness noted. NEUROLOGIC EXAMINATION: Patient is awake, alert and oriented x3. FINAL ASSESSMENT AND PLAN: Shortness of breath, secondary to chronic right pleural effusion Chest discomfort, patient denies any chest pain Urinary tract infection History of DVT/PE, on anticoagulation PLAN: Recommend resuming home medication regimen Hold anticoagulation 1 day (2 doses) prior to any thoracentesis No need for repeat cardiac testing at this time No further recommendations from the cardiac standpoint I am dictating on behalf of Dr Julio C Coats's history/physical and assessment/plan. Past Medical History Past Medical History: Cancer, Eye Disorder, Prostate Disorder, Pulmonary Embolus (PE), Rheumatoid Arthritis (RA) Additional Past Medical History / Comment(s): 2014 R sided PE, bilateral chronic lung nodules, "leaky heart valve", BPH, skin cancer (melanoma) with removals, ma lignant colon polyps removed, headaches since CHI, bilateral cataracts with removal. As of 05/04/2022-thoracentesis x3. History of Any Multi-Drug Resistant Organisms: None Reported Past Surgical History: Appendectomy, Cholecystectomy, Heart Catheterization, Joint Replacement, Orthopedic Surgery Additional Past Surgical History / Comment(s): R knee arthroscopy, bilateral total knee arthroplasties, R shoulder rotator cuff repair, L knee replacement, bilateral elbow surgery, R hand partial amputation d/t injury, colonoscopy with 2 cancerous polypectomies, skin cancer removed, EGD Past Anesthesia/Blood Transfusion Reactions: No Reported Reaction Additional Past Anesthesia/Blood Transfusion Reaction / Comment(s): Pt has never recieved blood. Smoking Status: Former smoker - Past Family History Son(s) Family Medical History: Deep Vein Thrombosis (DVT) Father Family Medical History: Cancer Additional Family Medical History / Comment(s): Father of lymphoma at age 70 yrs. Mother Family Medical History: Cancer Additional Family Medical History / Comment(s): Mother had breast cancer. She at age 88yrs. Medications and Allergies Home Medications Medication Instructions Recorded Confirmed Type Atorvastatin [Lipitor] 20 mg PO HS 11/25/18 05/04/22 History Albuterol Inhaler [Ventolin Hfa 1 puff INHALATION RT-Q4H PRN 05/01/21 05/04/22 History Inhaler] Calcium Carbonate/Vitamin D3 1 tab PO BID 05/01/21 05/04/22 History [Calcium 500-Vit D3 5 Mcg (200 Iu)] Cholecalciferol [Vitamin D3 (25 50 mcg PO DAILY 05/01/21 05/04/22 History Mcg = 1000 Iu)] Fluticasone Propion/Salmeterol 1 puff INHALATION RT-BID 05/01/21 05/04/22 History [Advair 250-50 Diskus] Omeprazole [PriLOSEC] 20 mg PO AC-BRKFST 05/01/21 05/04/22 History Potassium Chloride [Klor-Con 10 ER] 10 meq PO DAILY 05/01/21 05/04/22 History Tamsulosin [Flomax] 0.4 mg PO HS 05/01/21 05/04/22 History Leflunomide [Arava] 20 mg PO DAILY 10/30/21 05/04/22 History Albuterol Nebulized [Ventolin 2.5 mg INHALATION RT-Q4H PRN 02/14/22 05/04/22 History Nebulized] Tiotropium 2.5 Mcg/Puff [Spiriva 2 puff INHALATION RT-DAILY 02/14/22 05/04/22 History Respimat 2.5 Mcg] metFORMIN HCL ER [Glucophage XR] 500 mg PO DAILY 02/14/22 05/04/22 History Apixaban [Eliquis] 5 mg PO BID #60 tab 02/15/22 05/04/22 Rx Metoprolol Tartrate [Lopressor] 25 mg PO BID #60 tab 02/17/22 05/04/22 Rx Ketoconazole 2% Shampoo [Nizoral] 1 applic TOPICAL MOWEFR 04/18/22 05/04/22 History Allergies Allergy/AdvReac Type Severity Reaction Status Date / Time No Known Allergies Allergy Verified 05/04/22 14:13 Physical Exam Vitals: Vital Signs Temp Pulse Pulse Resp BP BP BP 05/05/22 09:01 97.6 F 98 154/76 05/05/22 03:57 97.8 F 75 16 113/64 05/05/22 02:00 70 18 05/05/22 00:03 97.7 F 70 18 102/67 05/04/22 20:00 70 18 05/04/22 19:43 97.8 F 98 20 122/77 05/04/22 18:32 97.5 F L 119 H 18 158/87 05/04/22 16:56 97.8 F 98 16 142/82 05/04/22 12:43 80 Pulse Ox 05/05/22 09:01 99 05/05/22 03:57 99 05/05/22 02:00 05/05/22 00:03 98 05/04/22 20:00 05/04/22 19:43 98 05/04/22 18:32 98 05/04/22 16:56 98 05/04/22 12:43 Intake and Output 05/04/22 05/05/22 05/05/22 22:59 06:59 14:59 Intake Total 123 Output Total 200 100 Balance -200 23 Intake: IV 5 Invasive Line 1 5 Oral 118 Output: Urine 200 100 Other: Voiding Method Urinal Urinal Urinal # Voids 1 Weight 86.183 kg Results 05/04/22 12:19 05/04/22 11:24 Cardiac Enzymes 05/04/22 05/04/22 05/04/22 Range/Units 11:24 14:42 17:14 Troponin I <0.012 <0.012 0.012 (0.000-0.034) ng/mL Coagulation 05/04/22 Range/Units 12:19 PT 11.1 (9.0-12.0) sec APTT 20.3 L (22.0-30.0) sec CBC 05/04/22 Range/Units 12:19 WBC 5.5 (3.8-10.6) k/uL RBC 4.77 (4.30-5.90) m/uL Hgb 12.6 L (13.0-17.5) gm/dL Hct 39.4 (39.0-53.0) % Plt Count 254 (150-450) k/uL Current Medications Generic Name Dose Route Start Last Admin Trade Name Freq PRN Reason Stop Dose Admin Acetaminophen 650 mg 05/04/22 13:39 Acetaminophen Tab 325 Mg Tab PO Q6HR PRN Mild Pain or Fever > 100.5 Albuterol Sulfate 2.5 mg 05/04/22 14:21 Albuterol Nebulized 2.5 Mg/3 Ml INHALATION RT-Q4H PRN Shortness Of Breath Alprazolam 0.25 mg 05/04/22 13:39 05/05/22 09:12 Alprazolam 0.25 Mg Tab PO 0.25 mg Q6HR PRN Administration Anxiety Apixaban 5 mg 05/04/22 21:00 05/05/22 10:13 Apixaban 5 Mg Tab PO Not Given BID [facility] Protocol Atorvastatin Calcium 20 mg 05/04/22 21:00 05/04/22 21:16 Atorvastatin 20 Mg Tab PO 20 mg HS DANELLE Administration Budesonide/Formoterol Fumarate 2 puff 05/04/22 20:00 05/05/22 08:13 Symbicort 80-4.5 Mcg Inhaler INHALATION 2 puff RT-BID DANELLE Administration Calcium Carbonate 1 each 05/04/22 21:00 05/05/22 09:07 Calcium Carb-Vit D 500 Mg-5 Mcg Tab PO 1 each BID DANELLE Administration Cholecalciferol 50 mcg 05/05/22 09:00 05/05/22 09:07 Cholecalciferol 25 Mcg (1000 Iu) Tablet PO 50 mcg DAILY DANELLE Administration Ketoconazole 1 applic 05/04/22 14:30 05/04/22 18:44 Ketoconazole 2% Shampoo 1 Applic/Ml TOPICAL Not Given [email or web address] [facility] Leflunomide 20 mg 05/05/22 09:00 05/05/22 09:13 Leflunomide 20 Mg Tab PO 20 mg DAILY DANELLE Administration Metoprolol Tartrate 25 mg 05/04/22 21:00 05/05/22 09:08 Metoprolol Tartrate 25 Mg Tab PO 25 mg BID DANELLE Administration Naloxone HCl 0.2 mg 05/04/22 13:39 Naloxone 0.4 Mg/Ml 1 Ml Vial IV Q2M PRN Opioid Reversal Ondansetron HCl 4 mg 05/04/22 13:39 Ondansetron 4 Mg/2 Ml Vial IVP Q8HR PRN Nausea And Vomiting Pantoprazole Sodium 40 mg 05/05/22 07:30 05/05/22 06:34 Pantoprazole 40 Mg Tablet PO 40 mg AC-BRKFST DANELLE Administration Potassium Chloride 10 meq 05/05/22 09:00 05/05/22 09:08 Potassium Chloride Er 10 Meq Tab.Er.Prt PO 10 meq DAILY DANELLE Administration Tamsulosin HCl 0.4 mg 05/04/22 21:00 05/04/22 21:15 Tamsulosin 0.4 Mg Cap.Er.24h PO 0.4 mg HS DANELLE Administration Tiotropium [place] 2 puff 05/05/22 08:00 05/05/22 08:13 Tiotropium 2.5 Mcg Inhaler INHALATION 2 puff RT-DAILY DANELLE Administration Intake and Output 05/04/22 05/05/22 05/05/22 22:59 06:59 14:59 Intake Total 123 Output Total 200 100 Balance -200 23 Intake: IV 5 Invasive Line 1 5 Oral 118 Output: Urine 200 100 Other: Voiding Method Urinal Urinal Urinal # Voids 1 Weight 86.183 kg 05/04/22 12:19 05/04/22 11:24
[2022-05-05] MEDS: FUROSEMIDE 10 MG/ML 4 ML VIAL IV SCH (12:47)
--- NOTE | 2022-05-05 12:52 | P.PN ---
Subjective Progress Note Date: 05/05/22 Patient was seen and examined. No acute events overnight. Patient reports exertional shortness of breath. General: non toxic, no distress, appears at stated age Derm: warm, dry Head: atraumatic, normocephalic, symmetric Eyes: EOMI, no lid lag, anicteric sclera Mouth: no lip lesion, mucus membranes moist Cardiovascular: S1S2 reg, no murmur, positive DP pulse bilateral, Lungs: Decreased breath sounds bilateral, no rhonchi, no rales , no accessory muscle use Ext: no gross muscle atrophy, no edema, no contractures, transmetatarsal amputation right hand Neuro: no focal neuro deficits Psych: Alert, oriented, appropriate affect #Shortness of breath, multifactorial, likely related to COPD, pulmonary embolus, recurrent right-sided pleural effusion #Chest pain #Abnormal urinalysis Chronic condition: Rheumatoid arthritis, diabetes mellitus Patient presents with progressively worsening shortness of breath. This is likely related to right-sided pleural effusion that is seen on chest x-ray. Pathology results from previous admission shows no malignancy. Pulmonology will be consulted for further management of this patient. Chest US shows moderate pleural effusion. Continue albuterol neb as needed for shortness of breath and wheezing. Restart Tiotropium and Symbicort. Hold eliquis for thoracentesis, IR consulted. Supplemental O2 to maintain O2 saturation greater than 92%. ACS ruled out. Echocardiogram from 10/2021 shows EF 50-55% with mild concentric LVH. Patient was given ASA 325 mg in the ED. Patient will be continued on Lipitor and Metoprolol. Telemetry monitoring. Cardiology recommends no further workup. Patient has no urinary symptoms. No need for antibiotics. DVT prophylaxis: [Eliquis] Discussed with: [Patient] Anticipated discharge: [2 days] Objective - Vital Signs Vital signs: Vital Signs Temp 97.6 F 05/05/22 09:01 Pulse 98 05/05/22 09:01 Resp 16 05/05/22 03:57 BP 154/76 05/05/22 09:01 Pulse Ox 99 05/05/22 09:01 FiO2 Intake & Output 05/04/22 05/05/22 05/05/22 18:59 06:59 18:59 Intake Total 123 Output Total 200 100 Balance -200 23 Weight 86.183 kg Intake: IV 5 Invasive Line 1 5 Oral 118 Output: Urine 200 100 Other: Voiding Method Urinal Urinal # Voids 1 - Labs CBC & Chem 7: 05/04/22 12:19 05/04/22 11:24 Labs: Abnormal Lab Results - Last 24 Hours (Table) 05/04/22 05/04/22 05/04/22 Range/Units 12:19 12:19 13:15 Hgb 12.6 L (13.0-17.5) gm/dL RDW 15.8 H (11.5-15.5) % APTT 20.3 L (22.0-30.0) sec Urine Protein Trace H (Negative) Urine Ketones Trace H (Negative) Ur Leukocyte Esterase Large H (Negative) Urine RBC 9 H (0-5) /hpf Urine WBC 34 H (0-5) /hpf Calcium Oxalate Crystal Occasional H (None) /hpf Amorphous Sediment Rare H (None) /hpf Urine Mucus Many H (None) /hpf Microbiology - Last 24 Hours (Table) 05/04/22 11:58 Blood Culture Gram Stain - Preliminary Blood 05/04/22 11:14 Blood Culture - Final Blood 05/04/22 13:15 Urine Culture - Preliminary Urine,Voided
[2022-05-05] MEDS: ATORVASTATIN 20 MG TAB PO SCH (20:13)
[2022-05-05] MEDS: TAMSULOSIN 0.4 MG CAP.ER.24H PO SCH (20:13)
[2022-05-06] MEDS: PANTOPRAZOLE 40 MG TABLET PO SCH (06:41)
[2022-05-06 07:33] LABS: African American GFR (CKD) >90 (>60 ml/min/1.73 sqM); Anion Gap 9 mmol/L; Blood Urea Nitrogen 18 mg/dL (9-20); Calcium 9.2 mg/dL (8.4-10.2); Carbon Dioxide 26 mmol/L (22-30); Chloride 105 mmol/L (98-107); Glucose 102 mg/dL (74-99); Non-African American GFR(CKD) 87 (>60 ml/min/1.73 sqM); Potassium 3.8 mmol/L (3.5-5.1); Sodium 140 mmol/L (137-145)
[2022-05-06] MEDS: SYMBICORT 80-4.5 MCG INHALER INHALATION SCH ×2 (08:41→20:42)
[2022-05-06] MEDS: TIOTROPIUM 2.5 MCG INHALER INHALATION SCH (08:41)
[2022-05-06] MEDS: POTASSIUM CHLORIDE ER 10 MEQ TAB.ER.PRT PO SCH (09:29)
[2022-05-06] MEDS: FUROSEMIDE 10 MG/ML 4 ML VIAL IV SCH (09:29)
[2022-05-06] MEDS: CHOLECALCIFEROL 25 MCG (1000 IU) TABLET PO SCH (09:29)
[2022-05-06] MEDS: CALCIUM CARB-VIT D 500 MG-5 MCG TAB PO SCH ×2 (09:29→20:37)
[2022-05-06] MEDS: METOPROLOL TARTRATE 25 MG TAB PO SCH ×2 (09:29→20:37)
[2022-05-06] MEDS: ALPRAZolam 0.25 MG TAB PO PRN ×3 (11:20→23:35)
[2022-05-06] MEDS: LEFLUNOMIDE 20 MG TAB PO SCH (11:21)
--- NOTE | 2022-05-06 11:34 | P.PN ---
Subjective Progress Note Date: 05/06/22 Patient was seen and examined. No acute events overnight. Patient reports exertional shortness of breath. He reports a depressed mood regarding repeat hospitalizations and exertional SOB that prevents him from enjoying life. He reports difficulty sleeping and decreased appetite. General: non toxic, no distress, appears at stated age Derm: warm, dry Head: atraumatic, normocephalic, symmetric Eyes: EOMI, no lid lag, anicteric sclera Mouth: no lip lesion, mucus membranes moist Cardiovascular: S1S2 reg, no murmur, positive DP pulse bilateral, Lungs: Decreased breath sounds bilateral, no rhonchi, no rales , no accessory muscle use Ext: no gross muscle atrophy, no edema, no contractures, transmetatarsal amputation right hand Neuro: no focal neuro deficits Psych: Alert, oriented, appropriate affect #Depression #Shortness of breath, multifactorial, likely related to COPD, pulmonary embolus, recurrent right-sided pleural effusion #Positive blood culture #Chest pain #Abnormal urinalysis Chronic condition: Rheumatoid arthritis, diabetes mellitus Start Remeron. Patient presents with progressively worsening shortness of breath. This is likely related to right-sided pleural effusion that is seen on chest x-ray. Pathology results from previous admission shows no malignancy. Pulmonology will be consulted for further management of this patient. Chest US shows moderate pleural effusion. Continue albuterol neb as needed for shortness of breath and wheezing. Restart Tiotropium and Symbicort. Hold eliquis for thoracentesis, IR consulted. Supplemental O2 to maintain O2 saturation greater than 92%. Started on Lasix 40 mg IV QD. blood culture growing gram-positive cocci and bacillus x2. Possible contaminant. No signs of sepsis. Start cefazolin. Repeat blood culture. ACS ruled out. Echocardiogram from 10/2021 shows EF 50-55% with mild concentric LVH. Patient was given ASA 325 mg in the ED. Patient will be continued on Lipitor and Metoprolol. Telemetry monitoring. Cardiology recommends no further workup. Patient has no urinary symptoms. No need for antibiotics. DVT prophylaxis: [Heparin] Discussed with: [Patient] Anticipated discharge: [1-2 days] Objective - Vital Signs Vital signs: Vital Signs Temp 97.6 F 05/06/22 09:26 Pulse 88 05/06/22 09:26 Resp 18 05/06/22 09:26 BP 128/68 10/16/22 09:26 Pulse Ox 100 05/06/22 09:26 FiO2 Intake & Output 05/05/22 05/06/22 05/06/22 18:59 06:59 18:59 Intake Total 726 352 Output Total 1000 150 100 Balance -274 -150 252 Weight 86.183 kg Intake: IV 10 10 Invasive Line 1 10 10 Oral 716 342 Output: Urine 1000 150 100 Other: Voiding Method Urinal Urinal Urinal # Voids 9 1 1 - Labs CBC & Chem 7: 05/04/22 12:19 05/06/22 06:56 Labs: Abnormal Lab Results - Last 24 Hours (Table) 05/06/22 Range/Units 06:56 Glucose 102 H (74-99) mg/dL Microbiology - Last 24 Hours (Table) 05/05/22 17:53 Blood Culture Gram Stain - Preliminary Blood 05/04/22 13:15 Urine Culture - Final Urine,Voided 05/04/22 10:57 Blood Culture - Final Blood 05/04/22 11:58 Blood Culture Gram Stain - Preliminary Blood 05/04/22 11:14 Blood Culture - Final Blood
[2022-05-06] MEDS: ATORVASTATIN 20 MG TAB PO SCH (20:37)
[2022-05-06] MEDS: MIRTAZAPINE 15 MG TAB PO SCH (20:37)
[2022-05-06] MEDS: TAMSULOSIN 0.4 MG CAP.ER.24H PO SCH (20:37)
[2022-05-06] MEDS: HEPARIN SODIUM,PORCINE/PF 5,000 UNIT/0.5 ML SYRINGE SQ SCH (20:39)
[2022-05-07] MEDS: PANTOPRAZOLE 40 MG TABLET PO SCH (06:43)
[2022-05-07] MEDS: TIOTROPIUM 2.5 MCG INHALER INHALATION SCH (07:59)
[2022-05-07] MEDS: SYMBICORT 80-4.5 MCG INHALER INHALATION SCH ×2 (07:59→20:58)
[2022-05-07] MEDS: HEPARIN SODIUM,PORCINE/PF 5,000 UNIT/0.5 ML SYRINGE SQ SCH (08:53)
[2022-05-07] MEDS: FUROSEMIDE 10 MG/ML 4 ML VIAL IV SCH (09:10)
[2022-05-07] MEDS: LEFLUNOMIDE 20 MG TAB PO SCH (09:10)
[2022-05-07] MEDS: CALCIUM CARB-VIT D 500 MG-5 MCG TAB PO SCH ×2 (09:10→20:53)
[2022-05-07] MEDS: POTASSIUM CHLORIDE ER 10 MEQ TAB.ER.PRT PO SCH (09:10)
[2022-05-07] MEDS: CHOLECALCIFEROL 25 MCG (1000 IU) TABLET PO SCH (09:10)
[2022-05-07] MEDS: METOPROLOL TARTRATE 25 MG TAB PO SCH ×2 (09:10→17:58)
[2022-05-07] MEDS: KETOCONAZOLE 2% SHAMPOO 1 APPLIC/ML TOPICAL SCH (09:12)
--- NOTE | 2022-05-07 12:31 | P.PCN ---
Date of Procedure: 05/07/22 Preoperative Diagnosis: right pleural effusion Procedure(s) Performed: thoracentesis Anesthesia: local Estimated Blood Loss (ml): 2 Pathology: other (30 cc serous sanguinous fluid) Condition: stable Disposition: no change Operative Findings: 5 fr posterior catheter placement u/s guide, loculated fluid, 310 cc, pleural rind noted
--- NOTE | 2022-05-07 12:42 | US ---
EXAMINATION TYPE: US thoracentesis DATE OF EXAM: 05/07/2022 COMPARISON: Ultrasound 05/04/2022, CT 02/14/2022 HISTORY: Pleural effusion on the right. FINDINGS: Maximal barrier technique was utilized. The skin overlying a suitable pocket of fluid was localized and the overlying skin prepped and draped. Lidocaine was used for local anesthesia. Ultras ound was used with sterile technique. A 5 [place] catheter over guide needle was advanced into the pl eural fluid collection using ultrasound guidance and the catheter advanced, needle removed. Approxim ately 2.3 liter(s) of serous sanguinous fluid was removed. Catheter was withdrawn and hemostasis ach ieved. There is no immediate complication. The patient discharged in stable condition without compl ication. Of note the effusion shows a loculated appearance. There is a pleural soft tissue rind noted. IMPRESSION: STATUS POST ULTRASOUND GUIDED THORACENTESIS, POST PROCEDURE CHEST X-RAY PENDING. Specime n obtained for laboratory analysis. THIS PROCEDURE WAS PERFORMED BY THE UNDERSIGNED.
--- NOTE | 2022-05-07 13:17 | XR ---
EXAMINATION TYPE: XR chest 1V portable DATE OF EXAM: 05/07/2022 COMPARISON: Chest x-ray 05/04/2022 HISTORY: Status post right thoracentesis TECHNIQUE: Single frontal view of the chest is obtained. FINDINGS: There is no significant interval change. No evident pneumothorax. IMPRESSION: No evident complication status post right-sided thoracentesis.
[2022-05-07] MEDS: ALPRAZolam 0.25 MG TAB PO PRN ×2 (15:24→20:53)
--- NOTE | 2022-05-07 15:59 | P.PN ---
Subjective Progress Note Date: 05/07/22 Principal diagnosis: Right-sided chronic pleural effusion History of S2 status exposure and asbestosis lung Shortness of breath multifactorial due to fluid overload COPD Chest pain resolved Prior history of multiple medical problems including deep venous thrombosis,, cell carcinoma of the skin, melanoma 05/07/2022, patient seen eval reexamined the status post thoracentesis is about fluid has been removed by interventional radiology. Postprocedure no complication noted Doing well remains afebrile with hemodynamically stable oxygen saturation improved to 96% on room air, blood cultures have been positive for micrococcus species and bacillus final culture however has been negative. Patient remains on cefazolin tolerating well This patient is well-known to me readmitted for recurrent pleural effusion. 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 Patient is a 77-year-old male with PMH of COPD, melanoma status post resection, history of pulmonary embolus on Eliquis, recurrent right-sided pleural effusion, rheumatoid arthritis and type 2 diabetes mellitus who presents the ED for shortness of breath. Patient has had multiple hospital admissions, most recently on April 18 and discharged on April 20. Since his discharge, patient repor ts shortness of breath, worsened with exertion has been progressively getting worse. Today he was at his PCP clinic at [facility] when he started experiencing substernal chest pain. He describes the chest pain to be pressure-like in nature with no radiation. There is no alleviating or aggravating factors. Pain had no radiation. These symptoms prompted him to come to the ED. He denies any headache, lower extremity edema, nausea or vomiting, fever or chills, cough, palpitations, changes in urination or bowel habits. He reports a decrease in appetite and subjective weight loss. He denies any dizziness, numbness/weakness/tingling of the extremities. In the ED, his vital signs were stable, though tachycardic with heart rate in the 90s. CBC showed hemoglobin of 12.6. INR was 1. CMP showed chloride of 109, bicarb of 21, glucose 110, alkaline phosphatase of 198. BNP was 219. Troponin was less than 0.0122. I was unable to pull up the EKG in the EMR. Urinalysis showed large leukocyte esterase. Chest x-ray showed chronic moderate right pleural effusion. Currently patient is being treated with bronchodilators as needed, being continued on the direct oral anticoagulant which is currently on hold for anticipation of thoracentesis Objective - Vital Signs Vital signs: Vital Signs Temp 97.9 F 05/07/22 15:11 Pulse 98 05/07/22 15:11 Resp 18 05/07/22 15:11 BP 124/81 05/07/22 15:11 Pulse Ox 97 05/07/22 15:11 FiO2 Intake & Output 05/06/22 05/07/22 05/07/22 18:59 06:59 18:59 Intake Total 1100 500 Output Total 700 625 400 Balance 400 -625 100 Weight 80.9 kg 80.9 kg Intake: IV 20 Invasive Line 1 20 Oral 1080 500 Output: Urine 700 625 400 Other: Voiding Method Urinal Urinal Urinal # Voids 1 - Exam Constitutional General appearance: average body habitus, cooperative, disheveled, mild distress - EENT Eyes: EOMI, PERRLA Ears: bilateral: normal - Neck Carotids: bilateral: upstroke normal Thyroid: negative: normal size - Respiratory Respiratory: right: diminished, dullness, left: rales - Cardiovascular Rhythm: regular Heart sounds: normal: S1, S2 - Gastrointestinal General gastrointestinal: normal bowel sounds - Integumentary Integumentary: normal turgor - Neurologic Neurologic: CNII-XII intact - Musculoskeletal Musculoskeletal: gait normal, generalized weakness, strength equal bilaterally - Psychiatric Psychiatric: A&O x's 3, appropriate affect, intact judgment & insight Results - Labs CBC & Chem 7: 05/04/22 12:19 05/06/22 06:56 Labs: Microbiology - Last 24 Hours (Table) 05/05/22 10:33 Blood Culture - Preliminary Blood No Growth after 48 hours 05/06/22 06:56 Blood Culture - Preliminary Blood No Growth after 24 hours 05/05/22 17:53 Blood Culture Gram Stain - Final Blood Blood Culture - Final Micrococcus species 05/04/22 11:58 Blood Culture Gram Stain - Final Blood Blood Culture - Final Bacillus species Not Anthracis Assessment and Plan Assessment: Right-sided chronic pleural effusion History of asbestosis exposure and asbestosis lung Shortness of breath multifactorial due to fluid overload COPD Chest pain resolved Prior history of multiple medical problems including deep venous thrombosis,, cell carcinoma of the skin, melanoma Plan: Consider trial of Lasix 40 mg IV daily, can be changed to oral. Patient Status post thoracentesis Feel that and will more discuss as outpatient about for more definitive di agnosis consider doing VATS and direct thoracoscopy. These options were explained it to them no advice received from them Time with Patient: Greater than 30
--- NOTE | 2022-05-07 16:49 | P.PN ---
Subjective Progress Note Date: 05/07/22 Patient was seen and examined. No acute events overnight. Patient underwent thoracentesis with 310 mL drained. Patient reports slight improvement in his shortness of breath. As per Dr. Lanza, patient to continue diuresis for 1 more day with anticipated discharge tomorrow. General: non toxic, no distress, appears at stated age Derm: warm, dry Head: atraumatic, normocephalic, symmetric Eyes: EOMI, no lid lag, anicteric sclera Mouth: no lip lesion, mucus membranes moist Cardiovascular: S1S2 reg, no murmur, positive DP pulse bilateral, Lungs: Decreased breath sounds bilateral, no rhonchi, no rales , no accessory muscle use Ext: no gross muscle atrophy, no edema, no contractures, transmetatarsal amp utation right hand Neuro: no focal neuro deficits Psych: Alert, oriented, appropriate affect #Depression #Shortness of breath, multifactorial, likely related to COPD, pulmonary embolus, recurrent right-sided pleural effusion #Positive blood culture #Chest pain #Abnormal urinalysis Chronic condition: Rheumatoid arthritis, diabetes mellitus Continue Remeron. Patient presents with progressively worsening shortness of breath. This is likely related to right-sided pleural effusion that is seen on chest x-ray. Pathology results from previous admission shows no malignancy. Pulmonology on board. Chest US shows moderate pleural effusion. Continue albuterol neb as needed for shortness of breath and wheezing. Restart Tiotropium and Symbicort. Status post thoracentesis with 310 mL drained. Supplemental O2 to maintain O2 saturation greater than 92%. Continue Lasix 40 mg IV QD. Blood culture growing gram-positive cocci and bacillus x2. Possible contaminant, anticipated no antibiotic on discharge. No signs of sepsis. Start cefazolin. Repeat blood culture negative so far. ACS ruled out. Echocardiogram from 10/2021 shows EF 50-55% with mild concentric LVH. Patient was given ASA 325 mg in the ED. Patient will be continued on Lipitor and Metoprolol. Telemetry monitoring. Cardiology recommends no further workup. Patient has no urinary symptoms. No need for antibiotics. DVT prophylaxis: [Eliquis] Discussed with: [Patient] Anticipated discharge: [Tomorrow] Objective - Vital Signs Vital signs: Vital Signs Temp 97.9 F 05/07/22 15:11 Pulse 98 05/07/22 15:11 Resp 18 05/07/22 15:11 BP 124/81 05/07/22 15:11 Pulse Ox 97 05/07/22 15:11 FiO2 Intake & Output 05/06/22 05/07/22 05/07/22 18:59 06:59 18:59 Intake Total 1100 500 Output Total 700 625 400 Balance 400 -625 100 Weight 80.9 kg 80.9 kg Intake: IV 20 Invasive Line 1 20 Oral 1080 500 Output: Urine 700 625 400 Other: Voiding Method Urinal Urinal Urinal # Voids 1 - Labs CBC & Chem 7: 05/04/22 12:19 05/06/22 06:56 Labs: Microbiology - Last 24 Hours (Table) 05/05/22 10:33 Blood Culture - Preliminary Blood No Growth after 48 hours 05/06/22 06:56 Blood Culture - Preliminary Blood No Growth after 24 hours 05/05/22 17:53 Blood Culture Gram Stain - Final Blood Blood Culture - Final Micrococcus species 05/04/22 11:58 Blood Culture Gram Stain - Final Blood Blood Culture - Final Bacillus species Not Anthracis
[2022-05-07 19:38] LABS: Appearance,BF Cloudy
[2022-05-07] MEDS: APIXABAN 5 MG TAB PO SCH (20:53)
[2022-05-07] MEDS: MIRTAZAPINE 15 MG TAB PO SCH (20:53)
[2022-05-07] MEDS: TAMSULOSIN 0.4 MG CAP.ER.24H PO SCH (20:53)
[2022-05-07] MEDS: ATORVASTATIN 20 MG TAB PO SCH (20:53)
[2022-05-08 01:07] LABS: Amylase, Fluid Source Pleural Fluid; Amylase,Body Fluid 11 U/L; Glucose, BF Source Pleural Fluid; Glucose, Body Fluid 12 mg/dL; T. Protein, Body Fluid Source Pleural Fluid; Total Protein, Body Fluid 2430 mg/dL
[2022-05-08 01:18] LABS: LDH, Body Fluid Source Pleural Fluid
[2022-05-08] MEDS: PANTOPRAZOLE 40 MG TABLET PO SCH (06:38)
[2022-05-08] MEDS: SYMBICORT 80-4.5 MCG INHALER INHALATION SCH ×2 (08:23→20:56)
[2022-05-08] MEDS: TIOTROPIUM 2.5 MCG INHALER INHALATION SCH (08:23)
[2022-05-08] MEDS: METOPROLOL TARTRATE 25 MG TAB PO SCH ×2 (08:42→22:11)
[2022-05-08] MEDS: FUROSEMIDE 10 MG/ML 4 ML VIAL IV SCH (08:42)
[2022-05-08] MEDS: APIXABAN 5 MG TAB PO SCH (08:42)
[2022-05-08] MEDS: CHOLECALCIFEROL 25 MCG (1000 IU) TABLET PO SCH (08:42)
[2022-05-08] MEDS: CALCIUM CARB-VIT D 500 MG-5 MCG TAB PO SCH ×2 (08:42→22:11)
[2022-05-08] MEDS: LEFLUNOMIDE 20 MG TAB PO SCH (08:43)
[2022-05-08] MEDS: POTASSIUM CHLORIDE ER 10 MEQ TAB.ER.PRT PO SCH (08:43)
--- NOTE | 2022-05-08 12:19 | XR ---
EXAMINATION TYPE: XR chest 1V DATE OF EXAM: 05/08/2022 COMPARISON: 05/07/2022 HISTORY: Pleural effusion TECHNIQUE: Single frontal view of the chest is obtained. FINDINGS: There is a small right pleural effusion with no sizable thorax. Postsurgical change left s houlder. Hyperinflation suggests COPD. Hypertrophic and degenerative change of the spine. No signific ant interval change. Linear density right midlung suggestive of scar or atelectasis. IMPRESSION: 1 right lower lobe consolidation and small pleural effusion.
--- NOTE | 2022-05-08 13:12 | P.PN ---
Subjective Progress Note Date: 05/08/22 Patient states that dressing he has no shortness of breath. He stated that he'll need a shortness of breath with exertion. Objective - Vital Signs Vital signs: Vital Signs Temp 97.5 F L 05/08/22 11:23 Pulse 103 H 05/08/22 11:23 Resp 20 05/08/22 11:23 BP 126/84 05/08/22 11:23 Pulse Ox 94 L 05/08/22 11:23 FiO2 Intake & Output 05/07/22 05/08/22 05/08/22 18:59 06:59 18:59 Intake Total 855 320 Output Total 400 1050 Balance 455 -730 Weight 80.9 kg Intake: Oral 855 320 Output: Urine 400 1050 Other: Voiding Method Urinal Urinal Urinal - Exam General examination - Alert and Oriented 3 in NAD, appears chronically debilitated Heart - + S1S2 no murmurs Lungs - Clear to auscultation Abdomen soft NT ND +ve BS Extremities - No edema URGENT CARE PHYSICIAN - Moving all 4 extremities spontaneously Psych - Calm and cooperative - Labs CBC & Chem 7: 05/04/22 12:19 05/06/22 06:56 Labs: Microbiology - Last 24 Hours (Table) 05/05/22 10:33 Blood Culture - Preliminary Blood No Growth after 72 hours 05/07/22 12:30 Gram Stain - Preliminary Pleural Fluid Body Fluid Culture - Preliminary 05/06/22 06:56 Blood Culture - Preliminary Blood No Growth after 48 hours 05/07/22 12:30 Fungal Culture - Preliminary Pleural Fluid 05/07/22 12:30 Anaerobic Culture - Preliminary Pleural Fluid Assessment and Plan Assessment: #Depression #Shortness of breath, multifactorial, likely related to COPD, pulmonary embolus, recurrent right-sided pleural effusion #Positive blood culture #Chest pain #Abnormal urinalysis Chronic condition: Rheumatoid arthritis, diabetes mellitus Continue Remeron. Patient presents with progressively worsening shortness of breath. This is likely related to right-sided pleural effusion that is seen on chest x-ray. Pathology results from previous admission shows no malignancy. Pulmonology on board. Chest US shows moderate pleural effusion. Continue albuterol neb as needed for shortness of breath and wheezing. Restart Tiotropium and Symbicort. Status post thoracentesis with 310 mL drained. Supplemental O2 to maintain O2 saturation greater than 92%. Continue Lasix 40 mg IV QD. Repeat chest x-ray shows small right-sided pleural effusion. I discussed with pulmonology is recommending a CT surgery consult. Multiple blood cultures grew contaminated bacteria. We'll consult infectious disease. Patient empirically started on IV cefazolin. ACS ruled out. Echocardiogram from 10/2021 shows EF 50-55% with mild concentric LVH. Patient was given ASA 325 mg in the ED. Patient will be continued on Lipitor and Metoprolol. Telemetry monitoring. Cardiology recommends no further workup. Patient has no urinary symptoms. No need for antibiotics. DVT prophylaxis: [Eliquis] Anticipated discharge: [Tomorrow if CT surgery has no plans to do any surgery]
--- NOTE | 2022-05-08 14:52 | P.GSCN ---
History of Present Illness Consult date: 05/08/22 Reason for Consult: Chronic right-sided pleural effusion Requesting physician: Yaquelin Carrizales History of present illness: This is a 77-year-old gentleman who follows on an outpatient basis at the [facility] for primary care as well as with Dr. Lanza for pulmonology and Dr. Rick for cardiology. He has a previous medical history of rheumatoid arthritis, paroxysmal atrial fibrillation on Eliquis for anticoagulation, pulmonary embolism, melanoma skin cancer status post resection in December 2021, type 2 diabetes, and previous tobacco dependence. He presented to [facility] emergency room on May 04 with complaints of significant shortness of breath with any activity. Apparently this gentleman had a malignant melanoma removed in December of this year, subsequently he has developed a right-sided chronic pleural effusion and has had thoracentesis 4. So far all pleural fluid has been negative for malignancy. In addition he has had CT scans and a PET scan with no conclusive evidence of malignancy. The patient states that prior to his melanoma diagnosis he had no activity limitations with good quality of life. Since then the patient feels okay when not active but he is unable to walk even to the bathroom without being significantly short of breath. Both he and the state that his quality of life has decreased significantly in the last few months and they're very frustrated. During this admission the patient had his fourth thoracentesis, pleural fluid pathology pending, and the patient states he really does not feel significantly better with activity. Pleural fluid from thoracentesis shows glucose 12, protein 2430, LDH 1493. Chest x-ray completed daily really remains unchanged with no significant improvement. Cardiothoracic surgery was consulted for recommendations regarding treatment of right-sided chronic pleural effusion. The patient is currently on a liquids, IV Ancef, IV Lasix, DuoNeb's with Symbicort and Spiriva for treatment. Review of Systems Review of systems was completed and was negative except as noted - Cardiovascular Reports shortness of breath Past Medical History Past Medical History: Cancer, Eye Disorder, Prostate Disorder, Pulmonary Embolus (PE), Rheumatoid Arthritis (RA) Additional Past Medical History / Comment(s): 2015 R sided PE, bilateral chronic lung nodules, "leaky heart valve", BPH, skin cancer (melanoma) with removals, malignant colon polyps removed, headaches since CHI, bilateral cataracts with removal. As of 05/07/2022-thoracentesis x4. History of Any Multi-Drug Resistant Organisms: None Reported Past Surgical History: Appendectomy, Cholecystectomy, Heart Catheterization, Joint Replacement, Orthopedic Surgery Additional Past Surgical History / Comment(s): R knee arthroscopy, bilateral total knee arthroplasties, R shoulder rotator cuff repair, L knee replacement, bilateral elbow surgery, R hand partial amputation d/t injury, colonoscopy with 2 cancerous polypectomies, skin cancer removed, EGD Past Anesthesia/Blood Transfusion Reactions: No Reported Reaction Additional Past Anesthesia/Blood Transfusion Reaction / Comm: Pt has never recieved blood. Past Psychological History: No Psychological Hx Reported Smoking Status: Former smoker Past Alcohol Use History: None Reported Past Drug Use History: None Reported - Past Family History Son(s) Family Medical History: Deep Vein Thrombosis (DVT) Father Family Medical History: Cancer Additional Family Medical History / Comment(s): Father of lymphoma at age 70 yrs. Mother Family Medical History: Cancer Additional Family Medical History / Comment(s): Mother had breast cancer. She at age 88yrs. Medications and Allergies Home Medications Medication Instructions Recorded Confirmed Type Atorvastatin [Lipitor] 20 mg PO HS 11/25/18 05/04/22 History Albuterol Inhaler [Ventolin Hfa 1 puff INHALATION RT-Q4H PRN 05/01/21 05/04/22 History Inhaler] Calcium Carbonate/Vitamin D3 1 tab PO BID 05/01/21 05/04/22 History [Calcium 500-Vit D3 5 Mcg (200 Iu)] Cholecalciferol [Vitamin D3 (25 50 mcg PO DAILY 05/01/21 05/04/22 History Mcg = 1000 Iu)] Fluticasone Propion/Salmeterol 1 puff INHALATION RT-BID 05/01/21 05/04/22 History [Advair 250-50 Diskus] Omeprazole [PriLOSEC] 20 mg PO AC-BRKFST 05/01/21 05/04/22 History Potassium Chloride [Klor-Con 10 ER] 10 meq PO DAILY 05/01/21 05/04/22 History Tamsulosin [Flomax] 0.4 mg PO HS 05/01/21 05/04/22 History Leflunomide [Arava] 20 mg PO DAILY 10/30/21 05/04/22 History Albuterol Nebulized [Ventolin 2.5 mg INHALATION RT-Q4H PRN 02/14/22 05/04/22 History Nebulized] Tiotropium 2.5 Mcg/Puff [Spiriva 2 puff INHALATION RT-DAILY 02/14/22 05/04/22 History Respimat 2.5 Mcg] metFORMIN HCL ER [Glucophage XR] 500 mg PO DAILY 02/14/22 05/04/22 History Apixaban [Eliquis] 5 mg PO BID #60 tab 02/15/22 05/04/22 Rx Metoprolol Tartrate [Lopressor] 25 mg PO BID #60 tab 02/17/22 05/04/22 Rx Ketoconazole 2% Shampoo [Nizoral] 1 applic TOPICAL MOWEFR 04/18/22 05/04/22 History Allergies Allergy/AdvReac Type Severity Reaction Status Date / Time No Known Allergies Allergy Verified 05/04/22 14:13 Surgical - Exam Vital Signs Temp Pulse Resp BP Pulse Ox 97.7 F 102 H 20 126/70 97 05/04/22 10:20 05/04/22 10:20 05/04/22 10:20 05/04/22 10:20 05/04/22 10:20 CONSTITUTIONAL: Awake and alert, lying in bed, appears comfortable, cooperative, no pain, no acute distress EYES: Pupils equal, round, reactive to light, normal ocular movement ENT: Moist mucous membranes without oral lesions present, missing teeth NECK: No masses, no bruits, trachea midline RESPIRATORY: Lungs sounds diminished bilaterally, right greater than left. Respirations even, nonlabored. Currently on room air with oxygen saturation 94%. Strong cough. No chest wall deformities. CARDIOVASCULAR: S1, S2 present. Regular rate and rhythm, sinus rhythm on telemetry. Palpable peripheral pulses bilaterally. No edema present. No calf pain or tenderness noted. GASTROINTESTINAL: Abdomen soft, nontender, nondistended without masses or organomegaly noted. There is no rebound or guarding present. Active bowel sounds present 4 quadrants. GENITOURINARY: Deferred INTEGUMENTARY: Skin is warm and dry with evidence of good perfusion, missing fingers on his right hand. NEUROLOGIC: Cranial nerves II through XII intact, normal coordination, no obvious motor or sensory deficits, speech is normal MUSKULOSKELETAL: Able to move all extremities, strength equal bilaterally, normal posture PSYCHIATRIC: Alert and oriented to person place and time, appropriate affect, intact judgment and insight Results - Labs 05/04/22 12:19 05/06/22 06:56 Microbiology - Last 24 Hours (Table) 05/05/22 10:33 Blood Culture - Preliminary Blood No Growth after 72 hours 05/07/22 12:30 Gram Stain - Preliminary Pleural Fluid Body Fluid Culture - Preliminary 05/06/22 06:56 Blood Culture - Preliminary Blood No Growth after 48 hours 05/07/22 12:30 Fungal Culture - Preliminary Pleural Fluid 05/07/22 12:30 Anaerobic Culture - Preliminary Pleural Fluid - Imaging Chest x-ray: report reviewed, image reviewed Assessment and Plan Assessment: 1. Right-sided chronic pleural effusion, status post thoracentesis 4, pathology negative for malignancy 2. Shortness of breath secondary to above 3. History of asbestos 4. Rheumatoid arthritis 5. Paroxysmal atrial fibrillation, history of pulmonary embolism, on Eliquis for anticoagulation, currently sinus rhythm 6. Mild mitral and mild tricuspid regurgitation with normal left ventricular systolic function, being monitored outpatient 7. Recent history of melanoma skin cancer status post resection in December 2021 8. Type 2 diabetes 9. Previous tobacco dependence 10. COPD Plan: The patient was seen and examined at the bedside. Chart/diagnostics were reviewed. The case was discussed in detail with Dr. Rosenbaum. We will obtain a CT of the chest to evaluate recurrent effusion for loculation, rind. Dependent on those results will make further recommendations for possible VATS with decortication versus Pleurx catheter placement. Patient would have to be off Eliquis prior to any surgical intervention. This was discussed with the patient and his at the bedside and they are agreeable to whatever treatment option we recommend. Continue current medical management/supportive care. Increase activity as tolerated. Management of other comorbidities per primary care, pulmonology, cardiology. Thank you for this consult. More recommendations to follow dependent on patient's progress, computed tomography scan. I have personally seen and examined the patient, performed the documentation and the assessment and plan as written. Number of minutes spent on the visit: 30. Bernadette Williamson NP-C
--- NOTE | 2022-05-08 15:50 | CT ---
EXAMINATION TYPE: CT chest wo con DATE OF EXAM: 05/08/2022 COMPARISON: CTA of the chest 02/14/2022, CTA chest 11/04/2020 CT chest 03/24/2015, ultrasound 05/04/2022 HISTORY: right pleural effusion recurrent and chronic CT DLP: 393.8 mGycm. Automated Exposure Control for Dose Reduction was Utilized. TECHNIQUE: CT scan of the thorax is performed without IV contrast. FINDINGS: Lack of intravenous contrast could compromise sensitivity LUNGS: Patient's chronic right pleural effusion with some pleural calcification, pleural rind noted, air-fluid level anteriorly within the collection likely due to patient's previous thoracentesis. Ther e is underlying loculation. Areas of scarring within the upper lobes again noted, there is nodularity similar to prior exam. Some probable chronic pleural reaction, scarring present at the posterior lef t lung base. MEDIASTINUM: Lack of IV contrast is noted to limit evaluation for mediastinal and especially hilar ad enopathy. There are no definitive greater than 1 cm hilar or mediastinal lymph nodes. No cardiomega ly or pericardial effusion is seen. There are coronary artery calcifications present. OTHER: Nonobstructive calcifications present within the kidneys. Ascending aorta measures approximate 4.2 cm on this noncontrast exam. There are changes of gynecomastia. IMPRESSION: Right pleural effusion is loculated with foci of air likely residual from patient's prior thoracentesis 05/07/2022. Pleural rind is present, correlate to exclude empyema. Nonobstructive neph rolithiasis. Aortic aneurysm. Coronary artery disease. Areas of nodularity and scarring in the lungs appears stable.
[2022-05-08] MEDS: ALPRAZolam 0.25 MG TAB PO PRN ×2 (16:11→22:11)
[2022-05-08] MEDS: ATORVASTATIN 20 MG TAB PO SCH (22:11)
[2022-05-08] MEDS: TAMSULOSIN 0.4 MG CAP.ER.24H PO SCH (22:11)
[2022-05-08] MEDS: MIRTAZAPINE 15 MG TAB PO SCH (22:11)
--- NOTE | 2022-05-08 23:04 | P.CONS ---
History of Present Illness - Reason for Consult Consult date: 05/08/22 Bacteremia Requesting physician: Yaquelin Carrizales - Chief Complaint Shortness of breath x few days - History of Present Illness Patient is a 77-year-old male presenting to the hospital 4 days ago on 05/04/2022 for evaluation of increasing shortness of breath and chest pain in this patient symptom has been going on for few days before presentation to the hospital patient apparently did have history of recurrent right pleural effusion and has been drained 3 times in the past patient breathing was getting worse for about a week before presentation to the hospital patient denies having any significant chest pain he did have a mild cough no sputum production. Denies having any nausea no vomiting no abdominal pain or any diarrhea patient on presentation to the hospital was afebrile and no fever has been recorded in the last 4 days patient did have a normal white count kidney function has been normal urine was mildly positive patient did have a little fluid obtained on 05/07/2022 which was cloudy however white count was 690 RBC of 18,000 patient did have a blood cultures on the as well as on the which is growing bacillus species and micrococcus species blood culture on the so far negative infectious disease was consulted because of the positive blood culture and the patient is currently being treated with cefazolin Review of Systems Positive point has been mentioned in the HPI rest of the systems are negative Past Medical History Past Medical History: Cancer, Eye Disorder, Prostate Disorder, Pulmonary Embolus (PE), Rheumatoid Arthritis (RA) Additional Past Medical History / Comment(s): 2014 R sided PE, bilateral chronic lung nodules, "leaky heart valve", BPH, skin cancer (melanoma) with removals, malignant colon polyps removed, headaches since CHI, bilateral cataracts with removal. As of 05/04/2022-thoracentesis x3. History of Any Multi-Drug Resistant Organisms: None Reported Past Surgical History: Appendectomy, Cholecystectomy, Heart Catheterization, Joint Replacement, Orthopedic Surgery Additional Past Surgical History / Comment(s): R knee arthroscopy, bilateral total knee arthroplasties, R shoulder rotator cuff repair, L knee replacement, bilateral elbow surgery, R hand partial amputation d/t injury, colonoscopy with 2 cancerous polypectomies, skin cancer removed, EGD Past Anesthesia/Blood Transfusion Reactions: No Reported Reaction Additional Past Anesthesia/Blood Transfusion Reaction / Comm: Pt has never recieved blood. Smoking Status: Former smoker - Past Family History Son(s) Family Medical History: Deep Vein Thrombosis (DVT) Father Family Medical History: Cancer Additional Family Medical History / Comment(s): Father of lymphoma at age 70 yrs. Mother Family Medical History: Cancer Additional Family Medical History / Comment(s): Mother had breast cancer. She at age 88yrs. Medications and Allergies Home Medications Medication Instructions Recorded Confirmed Type Atorvastatin [Lipitor] 20 mg PO HS 11/25/18 05/04/22 History Albuterol Inhaler [Ventolin Hfa 1 puff INHALATION RT-Q4H PRN 05/01/21 05/04/22 History Inhaler] Calcium Carbonate/Vitamin D3 1 tab PO BID 05/01/21 05/04/22 History [Calcium 500-Vit D3 5 Mcg (200 Iu)] Cholecalciferol [Vitamin D3 (25 50 mcg PO DAILY 05/01/21 05/04/22 History Mcg = 1000 Iu)] Fluticasone Propion/Salmeterol 1 puff INHALATION RT-BID 05/01/21 05/04/22 History [Advair 250-50 Diskus] Omeprazole [PriLOSEC] 20 mg PO AC-BRKFST 05/01/21 05/04/22 History Potassium Chloride [Klor-Con 10 ER] 10 meq PO DAILY 05/01/21 05/04/22 History Tamsulosin [Flomax] 0.4 mg PO HS 05/01/21 05/04/22 History Leflunomide [Arava] 20 mg PO DAILY 10/30/21 05/04/22 History Albuterol Nebulized [Ventolin 2.5 mg INHALATION RT-Q4H PRN 02/14/22 05/04/22 History Nebulized] Tiotropium 2.5 Mcg/Puff [Spiriva 2 puff INHALATION RT-DAILY 02/14/22 05/04/22 History Respimat 2.5 Mcg] metFORMIN HCL ER [Glucophage XR] 500 mg PO DAILY 02/14/22 05/04/22 History Apixaban [Eliquis] 5 mg PO BID #60 tab 02/15/22 05/04/22 Rx Metoprolol Tartrate [Lopressor] 25 mg PO BID #60 tab 02/17/22 05/04/22 Rx Ketoconazole 2% Shampoo [Nizoral] 1 applic TOPICAL MOWEFR 04/18/22 05/04/22 History Allergies Allergy/AdvReac Type Severity Reaction Status Date / Time No Known Allergies Allergy Verified 05/11/22 13:35 Physical Exam Vitals: Vital Signs Temp Pulse Resp BP Pulse Ox 05/08/22 08:40 110 H 20 05/08/22 08:24 97 05/08/22 01:03 110 H 20 05/07/22 20:00 98.9 F 110 H 20 136/53 97 05/07/22 16:51 154 H 18 147/84 94 L 05/07/22 15:11 97.9 F 98 18 124/81 97 05/07/22 14:00 96 18 120/78 96 05/07/22 13:45 99 18 135/84 97 05/07/22 13:30 92 18 131/81 100 05/07/22 13:15 86 18 135/85 99 05/07/22 13:01 91 18 05/07/22 13:00 97.5 F L 91 18 123/81 97 05/07/22 12:00 95 18 104/66 99 05/07/22 11:29 97.5 F L 80 17 123/81 80 L Intake and Output 05/07/22 05/08/22 05/08/22 22:59 06:59 14:59 Intake Total 435 240 Output Total 225 825 Balance 210 -585 Intake: Oral 435 240 Output: Urine 225 825 Other: Voiding Method Urinal Urinal Urinal GENERAL DESCRIPTION: Anderle male lying in bed, no distress. No tachypnea or accessory muscle of respiration use. HEENT: Shows Pallor , no scleral icterus. Oral mucous membrane is dry. No pharyngeal erythema or thrush NECK: Trachea central, no thyromegaly. LUNGS: Unlabored breathing. Decreased breath sounds at the base HEART: S1, S2, regular rate and rhythm. No loud murmur ABDOMEN: Soft, no tenderness , guarding or rigidity, no organomegaly EXTREMITIES: No edema of feet. SKIN: No rash, no masses palpable. NEUROLOGICAL: The patient is awake, alert, oriented x3, mood and affect normal. Results CBC & Chem 7: 05/12/22 05:45 05/12/22 05:45 Labs: Microbiology - Last 24 Hours (Table) 05/06/22 06:56 Blood Culture - Preliminary Blood No Growth after 48 hours 05/07/22 12:30 Gram Stain - Preliminary Pleural Fluid Body Fluid Culture - Preliminary 05/07/22 12:30 Fungal Culture - Preliminary Pleural Fluid 05/07/22 12:30 Anaerobic Culture - Preliminary Pleural Fluid 05/05/22 10:33 Blood Culture - Preliminary Blood No Growth after 48 hours Assessment and Plan (1) Recurrent right pleural effusion Current Visit: Yes Status: Acute Priority: High Code(s): J90 - PLEURAL EFFUSION, NOT ELSEWHERE CLASSIFIED SNOMED Code(s): 19529657 (2) Positive blood culture Current Visit: No Status: Acute Code(s): R78.81 - BACTEREMIA SNOMED Code(s): 021722029 Plan: 1patient with a positive blood culture with bacillus species and micrococcus more likely skin contamination at the present do not have any clinical disease to go along with it and repeat blood cultures on 05/06/2020 so far negative 2patient with recurrent right-sided effusion s/p paracentesis white count was not significantly elevated CT surgery has been consulted planning for a CT and consult duration for possible Pleurx catheter placement 3-we will discontinue cefazolin and empirically covered with Rocephin while awaiting further work-up to be completed 4-check inflammatory markers We will follow on clinical condition and cultures to further adjust medication if needed Thank you for this consultation will follow this patient along with you Time with Patient: Greater than 30
[2022-05-09] MEDS: PANTOPRAZOLE 40 MG TABLET PO SCH (06:46)
[2022-05-09 08:09] LABS: Basophils # (A) 0.1 k/uL (0-0.2); Basophils % (A) 1 %; Eosinophils # (A) 0.1 k/uL (0-0.7); Eosinophils % (A) 2 %; HCT 43.7 % (39.0-53.0); HGB 13.4 gm/dL (13.0-17.5); Hypochromasia Marked; Lymphocytes # (A) 2.3 k/uL (1.0-4.8); Lymphocytes % (A) 33 %; MCH 26.3 pg (25.0-35.0); MCHC 30.6 g/dL (31.0-37.0); Mean Platelet Volume 8.6; Monocytes # (A) 0.6 k/uL (0-1.0); Monocytes % (A) 9 %; Neutrophils # (A) 3.7 k/uL (1.3-7.7); Neutrophils % (A) 52 %; Platelet Count 191 k/uL (150-450); RBC 5.08 m/uL (4.30-5.90); RDW 15.6 % (11.5-15.5); WBC 7.1 k/uL (3.8-10.6)
--- NOTE | 2022-05-09 08:47 | P.PN ---
Subjective Progress Note Date: 05/09/22 Principal diagnosis: Right-sided chronic pleural effusion, status post thoracentesis 4, pathology negative for malignancy, shortness of breath. History of asbestos exposure, rheumatoid arthritis, paroxysmal atrial fibrillation, pulmonary embolism on Eliquis for anticoagulation, mild mitral and mild tricuspid regurgitation with normal left ventricular systolic function, recent history of melanoma skin cancer status post resection in December 2021, type 2 diabetes, previous tobacco dependence, COPD The patient was seen and examined the spring sitting up in bed on the cardiac s tepdown unit in no acute distress. States his breathing continues to be stable when sitting in bed but he is very short of breath with any activity at all, including just walking to and from the bathroom. He was seen by Dr. Rosenbaum yesterday, computed tomography scan was reviewed, our plan is for Pleurx catheter placement tomorrow. The patient is agreeable and does consent to surgery. No other new concerns. Objective - Vital Signs Vital signs: Vital Signs Temp 98.0 F 05/08/22 20:00 Pulse 94 05/09/22 02:00 Resp 17 05/09/22 02:00 BP 126/71 05/08/22 20:00 Pulse Ox 96 05/08/22 20:00 FiO2 Intake & Output 05/08/22 05/09/22 05/09/22 18:59 06:59 18:59 Intake Total 200 Output Total 400 500 Balance -400 -300 Intake: Oral 200 Output: Urine 400 500 Other: Voiding Method Urinal Urinal - Exam CONSTITUTIONAL: Appears comfortable, cooperative, no acute distress RESPIRATORY: Lungs sounds diminished bilaterally. Respirations even, nonlabored. Currently on room air with oxygen saturation 96%. Able to achieve 2000 mL on incentive spirometry. Strong cough. CARDIOVASCULAR: S1, S2 present. Regular rate and rhythm, sinus rhythm on telemetry. Palpable peripheral pulses bilaterally. No edema present. No calf pain or tenderness noted. GASTROINTESTINAL: Abdomen soft, nontender, nondistended. Active bowel sounds present 4 quadrants. Tolerating minimal diet. GENITOURINARY: Continues to void INTEGUMENTARY: Skin is warm and dry NEUROLOGIC: Cranial nerves II through XII intact MUSKULOSKELETAL: Able to move all extremities, strength equal bilaterally, gait normal PSYCHIATRIC: Alert and oriented to person place and time, appropriate affect, intact judgment and insight - Allied health notes Allied health notes reviewed: nursing - Labs CBC & Chem 7: 05/09/22 07:33 05/06/22 06:56 Labs: Abnormal Lab Results - Last 24 Hours (Table) 05/09/22 Range/Units 07:33 MCHC 30.6 L (31.0-37.0) g/dL RDW 15.6 H (11.5-15.5) % Microbiology - Last 24 Hours (Table) 05/05/22 10:33 Blood Culture - Preliminary Blood No Growth after 72 hours 05/07/22 12:30 Gram Stain - Preliminary Pleural Fluid Body Fluid Culture - Preliminary 05/06/22 06:56 Blood Culture - Preliminary Blood No Growth after 48 hours - Imaging and Cardiology CT scan - chest: report reviewed, image reviewed Assessment and Plan Assessment: 1. Right-sided chronic pleural effusion, status post thoracentesis 4, pathology negative for malignancy 2. Shortness of breath secondary to above 3. History of asbestos exposure 4. Rheumatoid arthritis 5. Paroxysmal atrial fibrillation, history of pulmonary embolism, on Eliquis for anticoagulation, currently sinus rhythm 6. Mild mitral and mild tricuspid regurgitation with normal left ventricular systolic function, being monitored outpatient 7. Recent history of melanoma skin cancer status post resection in December 2021 8. Type 2 diabetes 9. Previous tobacco dependence 10. COPD Plan: 1. Our plan is for right-sided Pleurx catheter placement tomorrow, 05/10/2022. Patient will be nothing by mouth after midnight 2. Eliquis was stopped yesterday, patient placed on Lovenox 3. Encourage incentive spirometry use 10 times every hour while awake 4. Increase activity as tolerated 5. Continue supportive treatment 6. Management of other comorbidities per primary care, pulmonology, cardiology 7. Patient may be restarted on Eliquis and discharged to home tomorrow after Pleurx catheter placement from our standpoint when okay with other services
[2022-05-09] MEDS: SYMBICORT 80-4.5 MCG INHALER INHALATION SCH ×2 (09:04→20:41)
[2022-05-09] MEDS: TIOTROPIUM 2.5 MCG INHALER INHALATION SCH (09:04)
[2022-05-09] MEDS: KETOCONAZOLE 2% SHAMPOO 1 APPLIC/ML TOPICAL SCH (09:24)
[2022-05-09] MEDS: LEFLUNOMIDE 20 MG TAB PO SCH (09:25)
[2022-05-09] MEDS: ENOXAPARIN 40 MG/0.4 ML SYRINGE SQ SCH (09:25)
[2022-05-09] MEDS: POTASSIUM CHLORIDE ER 10 MEQ TAB.ER.PRT PO SCH (09:25)
[2022-05-09] MEDS: CHOLECALCIFEROL 25 MCG (1000 IU) TABLET PO SCH (09:26)
[2022-05-09] MEDS: METOPROLOL TARTRATE 25 MG TAB PO SCH ×2 (09:26→21:09)
[2022-05-09] MEDS: CALCIUM CARB-VIT D 500 MG-5 MCG TAB PO SCH ×2 (09:26→21:09)
[2022-05-09] MEDS: FUROSEMIDE 10 MG/ML 4 ML VIAL IV SCH (09:26)
[2022-05-09] MEDS: ALPRAZolam 0.25 MG TAB PO PRN ×2 (09:32→17:54)
--- NOTE | 2022-05-09 11:04 | P.PN ---
Subjective Progress Note Date: 05/09/22 Patient states that his breathing is better today. He states his elbow cooperative and use the bathroom. Patient is scheduled for a post-catheter tomorrow. Objective - Vital Signs Vital signs: Vital Signs Temp 96.7 F L 05/09/22 08:42 Pulse 106 H 05/09/22 08:42 Resp 16 05/09/22 08:42 BP 134/75 05/09/22 08:42 Pulse Ox 98 05/09/22 08:42 FiO2 Intake & Output 05/08/22 05/09/22 05/09/22 18:59 06:59 18:59 Intake Total 200 240 Output Total 400 500 Balance -400 -300 240 Intake: Oral 200 240 Output: Urine 400 500 Other: Voiding Method Urinal Urinal - Exam General examination - Alert and Oriented 3 in NAD, appears chronically debilitated Heart - + S1S2 no murmurs Lungs - diminished breath sounds bilaterally Abdomen soft NT ND +ve BS Extremities - No edema [employer] - Moving all 4 extremities spontaneously Psych - Calm and cooperative - Labs CBC & Chem 7: 05/09/22 07:33 05/06/22 06:56 Labs: Abnormal Lab Results - Last 24 Hours (Table) 05/09/22 05/09/22 Range/Units 07:28 07:33 MCHC 30.6 L (31.0-37.0) g/dL RDW 15.6 H (11.5-15.5) % C-Reactive Protein 2.5 H (<1.0) mg/dL Microbiology - Last 24 Hours (Table) 05/07/22 12:30 Gram Stain - Preliminary Pleural Fluid Body Fluid Culture - Preliminary 05/06/22 06:56 Blood Culture - Preliminary Blood No Growth after 72 hours 05/05/22 10:33 Blood Culture - Preliminary Blood No Growth after 72 hours Assessment and Plan Assessment: #Depression #Shortness of breath, multifactorial, likely related to COPD, pulmonary embolus, recurrent right-sided pleural effusion #Positive blood culture #Chest pain #Abnormal urinalysis Chronic condition: Rheumatoid arthritis, diabetes mellitus Continue Remeron. Patient presents with progressively worsening shortness of breath. This is likely related to right-sided pleural effusion that is seen on chest x-ray. Pa thology results from previous admission shows no malignancy. Pulmonology on board. Chest US shows moderate pleural effusion. Continue albuterol neb as needed for shortness of breath and wheezing. Restart Tiotropium and Symbicort. Status post thoracentesis with 310 mL drained. Supplemental O2 to maintain O2 saturation greater than 92%. Continue Lasix 40 mg IV QD. Repeat chest x-ray shows small right-sided pleural effusion. Patient seen by CT surgery who reviewed his CT scan. CT surgery plans on placing a port catheter tomorrow. Eliquis on hold for post-catheter. Multiple blood cultures grew contaminated bacteria. Per infectious disease this is likely a contaminant. Patient empirically started on IV cefazolin. Patient blood cultures from 05/06/2022 are negative. ACS ruled out. Echocardiogram from 10/2021 shows EF 50-55% with mild concentric LVH. Patient was given ASA 325 mg in the ED. Patient will be continued on Lipitor and Metoprolol. Telemetry monitoring. Cardiology recommends no further workup. Patient has no urinary symptoms. No need for antibiotics. DVT prophylaxis: [Eliquis] Anticipated discharge: [Anticipated patient be ready for discharge tomorrow after post-catheter has been placed]
[2022-05-09] MEDS ORDERED: INFLUENZA VACC HIGH-DOSE (65+) 240 MCG/0.7 ML SYRINGE IM ONE (12:23)
--- NOTE | 2022-05-09 13:50 | P.PN ---
Subjective Progress Note Date: 05/09/22 Principal diagnosis: Right-sided chronic pleural effusion History of S2 status exposure and asbestosis lung Shortness of breath multifactorial due to fluid overload COPD Chest pain resolved Prior history of multiple medical problems including deep venous thrombosis,, cell carcinoma of the skin, melanoma 05/09/2022, patient remains short of breath especially during activity and exertion oxygen saturation is stable, thoracic surgery and evaluated the patient they feel that VATS would not be an hour patient will likely need a thoracotomy. Patient is currently off of direct oral anticoagulant surgery is being considered for Saturday05/07/2022, patient seen eval reexamined the status post thoracentesis is about fluid has been removed by interventional radiology. Postprocedure no complication noted Doing well remains afebrile with hemodynamically stable oxygen saturation improved to 96% on room air, blood cultures have been positive for micrococcus species and bacillus final culture however has been negative. Patient remains on cefazolin tolerating well This patient is well-known to me readmitted for recurrent pleural effusion. 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 Patient is a 77-year-old male with PMH of COPD, melanoma status post resection, history of pulmonary embolus on Eliquis, recurrent right-sided pleural effusion, rheumatoid arthritis and type 2 diabetes mellitus who presents the ED for shortness of breath. Patient has had multiple hospital admissions, most recently on April 18 and discharged on April 20. Since his discharge, patient reports shortness of breath, worsened with exertion has been progressively getting worse. Today he was at his PCP clinic at [facility] when he started experiencing substernal chest pain. He describes the chest pain to be pressure- like in nature with no radiation. There is no alleviating or aggravating factors. Pain had no radiation. These symptoms prompted him to come to the ED. He denies any headache, lower extremity edema, nausea or vomiting, fever or chills, cough, palpitations, changes in urination or bowel habits. He reports a decrease in appetite and subjective weight loss. He denies any dizziness, numbness/weakness/tingling of the extremities. In the ED, his vital signs were stable, though tachycardic with heart rate in the 90s. CBC showed hemoglobin of 12.6. INR was 1. CMP showed chloride of 109, bicarb of 21, glucose 110, alkaline phosphatase of 198. BNP was 219. Troponin was less than 0.0122. I was unable to pull up the EKG in the EMR. Urinalysis showed large leukocyte esterase. Chest x-ray showed chronic moderate right pleural effusion. Currently patient is being treated with bronchodilators as needed, being continued on the direct oral anticoagulant which is currently on hold for anticipation of thoracentesis Objective - Vital Signs Vital signs: Vital Signs Temp 97.5 F L 05/09/22 12:25 Pulse 86 05/09/22 12:25 Resp 16 05/09/22 12:25 BP 117/75 05/09/22 12:25 Pulse Ox 96 05/09/22 12:25 FiO2 Intake & Output 05/08/22 05/09/22 05/09/22 18:59 06:59 18:59 Intake Total 200 240 Output Total 400 500 Balance -400 -300 240 Weight 80.9 kg Intake: Oral 200 240 Output: Urine 400 500 Other: Voiding Method Urinal Urinal Urinal - Exam Constitutional General appearance: average body habitus, cooperative, disheveled, mild distress - EENT Eyes: EOMI, PERRLA Ears: bilateral: normal - Neck Carotids: bilateral: upstroke normal Thyroid: negative: normal size - Respiratory Respiratory: right: diminished, dullness, left: rales - Cardiovascular Rhythm: regular Heart sounds: normal: S1, S2 - Gastrointestinal General gastrointestinal: normal bowel sounds - Integumentary Integumentary: normal turgor - Neurologic Neurologic: CNII-XII intact - Musculoskeletal Musculoskeletal: gait normal, generalized weakness, strength equal bilaterally - Psychiatric Psychiatric: A&O x's 3, appropriate affect, intact judgment & insight Results - Labs CBC & Chem 7: 05/09/22 07:33 05/06/22 06:56 Labs: Abnormal Lab Results - Last 24 Hours (Table) 05/09/22 05/09/22 05/09/22 Range/Units 07:28 07:28 07:33 MCHC 30.6 L (31.0-37.0) g/dL RDW 15.6 H (11.5-15.5) % C-Reactive Protein 2.5 H (<1.0) mg/dL Procalcitonin 0.10 H (0.02-0.09) ng/mL Microbiology - Last 24 Hours (Table) 10/15/22 10:33 Blood Culture - Preliminary Blood No Growth after 96 hours 05/07/22 12:30 Gram Stain - Preliminary Pleural Fluid Body Fluid Culture - Preliminary 05/06/22 06:56 Blood Culture - Preliminary Blood No Growth after 72 hours Assessment and Plan Assessment: Right-sided chronic pleural effusion History of asbestosis exposure and asbestosis lung mesothelioma cannot be excluded Shortness of breath multifactorial due to fluid overload and COPD Chest pain resolved Prior history of multiple medical problems including deep venous thrombosis,, cell carcinoma of the skin, melanoma Plan: Keep him off of direct oral anticoagulant As per thoracic surgery evaluation in progress for thoracotomy and decortication Status post right-sided thoracentesis multiple times with negative cytology Blood culture likely to be contaminant repeat blood cultures have been negative Time with Patient: Greater than 30
[2022-05-09] MEDS: MIRTAZAPINE 15 MG TAB PO SCH (21:09)
[2022-05-09] MEDS: ATORVASTATIN 20 MG TAB PO SCH (21:10)
[2022-05-09] MEDS: TAMSULOSIN 0.4 MG CAP.ER.24H PO SCH (21:10)
[2022-05-10] MEDS: PANTOPRAZOLE 40 MG TABLET PO SCH (06:31)
--- NOTE | 2022-05-10 07:01 | P.PN ---
Subjective Progress Note Date: 05/09/22 Principal diagnosis: Positive blood culture question of empyema Patient is a 77-year-old male presenting to the hospital for increasing shortness of breath patient did have a recurrent right-sided pleural effusion with the recent thoracocentesis culture has been negative so far blood culture positive for gram positives likely contamination, the patient did have a CT of the chest with evidence of loculated right pleural effusion, possible VAT procedure per CT surgery. On today's evaluation that is 05/09/2022, the patient is afebrile, the patient is breathing comfortably on room air, denies any chest pain so, no shortness of breath on exertion no worsening cough or sputum production no abdominal pain no diarrhea Objective - Vital Signs Vital signs: Vital Signs Temp 97.5 F L 05/09/22 12:25 Pulse 86 05/09/22 12:25 Resp 16 05/09/22 12:25 BP 117/75 05/09/22 12:25 Pulse Ox 96 05/09/22 12:25 FiO2 Intake & Output 05/08/22 05/09/22 05/09/22 18:59 06:59 18:59 Intake Total 200 240 Output Total 400 500 Balance -400 -300 240 Intake: Oral 200 240 Output: Urine 400 500 Other: Voiding Method Urinal Urinal Urinal - Exam GENERAL DESCRIPTION: An elderly male lying in bed in no distress RESPIRATORY SYSTEM: Unlabored breathing , decreased breath sounds at bases HEART: S1 S2 regular rate and rhythm , ABDOMEN: Soft , no tenderness EXTREMITIES: No edema feet - Labs CBC & Chem 7: 05/09/22 07:33 05/06/22 06:56 Labs: Abnormal Lab Results - Last 24 Hours (Table) 05/09/22 05/09/22 05/09/22 Range/Units 07:28 07:28 07:33 MCHC 30.6 L (31.0-37.0) g/dL RDW 15.6 H (11.5-15.5) % C-Reactive Protein 2.5 H (<1.0) mg/dL Procalcitonin 0.10 H (0.02-0.09) ng/mL Microbiology - Last 24 Hours (Table) 05/07/22 12:30 Gram Stain - Preliminary Pleural Fluid Body Fluid Culture - Preliminary 05/06/22 06:56 Blood Culture - Preliminary Blood No Growth after 72 hours 05/05/22 10:33 Blood Culture - Preliminary Blood No Growth after 72 hours Assessment and Plan (1) Pneumonia Current Visit: No Status: Acute Code(s): J18.9 - PNEUMONIA, UNSPECIFIED ORGANISM SNOMED Code(s): 569154435 (2) Positive blood culture Current Visit: No Status: Acute Code(s): R78.81 - BACTEREMIA SNOMED Code(s): 566419959 Plan: 1patient with a positive blood culture with bacillus species and micrococcus more likely skin contamination at the present do not have any clinical disease to go along with it and repeat blood cultures on 05/06/2020 so far negative 2patient with recurrent right-sided effusion s/p paracentesis white count was not significantly elevated CT chest with a question of possible loculated effusion and empyema and plan is for possible VATS procedure 3-patient to continue with Rocephin while awaiting further work-up to be completed Time with Patient: Less than 30
[2022-05-10 08:46] LABS: HCT 40.6 % (39.0-53.0); HGB 12.7 gm/dL (13.0-17.5); Hypochromasia Moderate; MCH 26.2 pg (25.0-35.0); MCHC 31.2 g/dL (31.0-37.0); MCV 84.1 fL (80.0-100.0); Mean Platelet Volume 9.2; Platelet Count 245 k/uL (150-450); RBC 4.82 m/uL (4.30-5.90); RDW 15.9 % (11.5-15.5); WBC 6.3 k/uL (3.8-10.6)
[2022-05-10] MEDS: TIOTROPIUM 2.5 MCG INHALER INHALATION SCH (08:55)
[2022-05-10] MEDS: SYMBICORT 80-4.5 MCG INHALER INHALATION SCH ×2 (08:55→19:06)
[2022-05-10 08:59] LABS: ALT 8 U/L (4-49); AST 19 U/L (17-59); African American GFR (CKD) >90 (>60 ml/min/1.73 sqM); Albumin 3.8 g/dL (3.5-5.0); Alkaline Phosphatase 154 U/L (38-126); Anion Gap 12 mmol/L; Blood Urea Nitrogen 21 mg/dL (9-20); Calcium 9.3 mg/dL (8.4-10.2); Carbon Dioxide 29 mmol/L (22-30); Chloride 99 mmol/L (98-107); Glucose 105 mg/dL (74-99); Non-African American GFR(CKD) 88 (>60 ml/min/1.73 sqM); Potassium 3.8 mmol/L (3.5-5.1); Sodium 140 mmol/L (137-145); Total Bilirubin 0.5 mg/dL (0.2-1.3); Total Protein 6.1 g/dL (6.3-8.2)
[2022-05-10] MEDS: CHOLECALCIFEROL 25 MCG (1000 IU) TABLET PO SCH (09:34)
[2022-05-10] MEDS: ENOXAPARIN 40 MG/0.4 ML SYRINGE SQ SCH (09:34)
[2022-05-10] MEDS: FUROSEMIDE 10 MG/ML 4 ML VIAL IV SCH (09:34)
[2022-05-10] MEDS: LEFLUNOMIDE 20 MG TAB PO SCH (09:34)
[2022-05-10] MEDS: CALCIUM CARB-VIT D 500 MG-5 MCG TAB PO SCH ×2 (09:34→20:59)
[2022-05-10] MEDS: ALPRAZolam 0.25 MG TAB PO PRN ×3 (09:34→21:00)
[2022-05-10] MEDS: POTASSIUM CHLORIDE ER 10 MEQ TAB.ER.PRT PO SCH (09:34)
--- NOTE | 2022-05-10 09:50 | P.PN ---
Subjective Progress Note Date: 05/10/22 Patient denies any acute complaints. He is aware that he'll be having a VATS procedure tomorrow. 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 Psych - Calm and cooperative - Labs CBC & Chem 7: 05/10/22 07:54 05/10/22 07:54 Labs: Abnormal Lab Results - Last 24 Hours (Table) 05/09/22 05/09/22 05/10/22 Range/Units 07:28 07:28 07:54 Hgb 12.7 L (13.0-17.5) gm/dL RDW 15.9 H (11.5-15.5) % BUN (9-20) mg/dL Glucose (74-99) mg/dL Alkaline Phosphatase (38-126) U/L C-Reactive Protein 2.5 H (<1.0) mg/dL Total Protein (6.3-8.2) g/dL Procalcitonin 0.10 H (0.02-0.09) ng/mL 05/10/22 Range/Units 07:54 Hgb (13.0-17.5) gm/dL RDW (11.5-15.5) % BUN 21 H (9-20) mg/dL Glucose 105 H (74-99) mg/dL Alkaline Phosphatase 154 H (38-126) U/L C-Reactive Protein (<1.0) mg/dL Total Protein 6.1 L (6.3-8.2) g/dL Procalcitonin (0.02-0.09) ng/mL Microbiology - Last 24 Hours (Table) 05/06/22 06:56 Blood Culture - Preliminary Blood No Growth after 96 hours 05/07/22 12:30 Gram Stain - Preliminary Pleural Fluid Body Fluid Culture - Preliminary 05/07/22 12:30 Anaerobic Culture - Preliminary Pleural Fluid 05/05/22 10:33 Blood Culture - Preliminary Blood No Growth after 96 hours Assessment and Plan Assessment: #Depression #Shortness of breath, multifactorial, likely related to COPD, pulmonary embolus, recurrent right-sided pleural effusion #Positive blood culture #Chest pain #Abnormal urinalysis Chronic condition: Rheumatoid arthritis, diabetes mellitus Continue Remeron. Patient presents with progressively worsening shortness of breath. This is likely related to right-sided pleural effusion that is seen on chest x-ray. Pathology results from previous admission shows no malignancy. Pulmonology on board. Chest US shows moderate pleural effusion. Continue albuterol neb as needed for shortness of breath and wheezing. Restart Tiotropium and Symbicort. Status post thoracentesis with 310 mL drained. Supplemental O2 to maintain O2 saturation greater than 92%. Continue Lasix 40 mg IV QD. Repeat chest x-ray shows small right-sided pleural effusion. Patient seen by CT surgery who reviewed his CT scan. CT surgery plans on VATS tomorrow. Eliquis on hold for surgery and will resume once cleared by CT surgery. Multiple blood cultures grew contaminated bacteria. Per infectious disease this is likely a contaminant. Patient empirically started on IV Rocephin. Patient blood cultures from 05/06/2022 are negative. Pro-calcitonin is within normal limits. Infectious disease managing antibiotics ACS ruled out. Echocardiogram from 10/2021 shows EF 50-55% with mild concentric LVH. Patient was given ASA 325 mg in the ED. Patient will be continued on Lipitor and Metoprolol. Telemetry monitoring. Cardiology recommends no further workup. Patient has no urinary symptoms. No need for antibiotics. DVT prophylaxis: [Lovenox] Anticipated discharge: [We'll discharge patient was cleared by CT surgery]
[2022-05-10] MEDS: METOPROLOL TARTRATE 25 MG TAB PO SCH ×2 (10:03→20:59)
--- NOTE | 2022-05-10 10:25 | P.PN ---
Subjective Progress Note Date: 05/10/22 Principal diagnosis: Right-sided chronic pleural effusion, status post thoracentesis 4, pathology negative for malignancy, shortness of breath. History of asbestos exposure, rheumatoid arthritis, paroxysmal atrial fibrillation, pulmonary embolism on Eliquis for anticoagulation, mild mitral and mild tricuspid regurgitation with normal left ventricular systolic function, recent history of melanoma skin cancer status post resection in December 2021, type 2 diabetes, previous tobacco dependence, COPD The patient was seen and examined sitting up in bed in no acute distress in the cardiac stepdown unit. Denies pain, does still current plan of shortness of breath with any activity. He was seen by Dr. Rosenbaum, after discussion with Dr. Lanza we will plan for right-sided thoracotomy with decortication tomorrow with Dr. Rosenbaum. This was discussed with the patient yesterday as well as his and they are in agreement. The patient is not thrilled that he has to stay longer in the hospital but does understand that this is the best course of treatment for him. No other new concerns at this time. Objective - Vital Signs Vital signs: Vital Signs Temp 98.0 F 05/10/22 03:47 Pulse 95 05/10/22 03:47 Resp 16 05/10/22 03:47 BP 114/67 05/10/22 03:47 Pulse Ox 96 05/10/22 03:47 FiO2 Intake & Output 05/09/22 05/10/22 05/10/22 18:59 06:59 18:59 Intake Total 240 Balance 240 Weight 80.9 kg 81.7 kg Intake: Oral 240 Other: Voiding Method Urinal # Voids 1 - Exam CONSTITUTIONAL: Appears comfortable, cooperative, no acute distress RESPIRATORY: Lungs sounds diminished bilaterally. Respirations even, nonlabored. Currently on room air with oxygen saturation 96%. Able to achieve 2000 mL on incentive spirometry. Strong cough. CARDIOVASCULAR: S1, S2 present. Regular rate and rhythm, sinus rhythm on telemetry. Palpable peripheral pulses bilaterally. No edema present. No calf pain or tenderness noted. GASTROINTESTINAL: Abdomen soft, nontender, nondistended. Active bowel sounds present 4 quadrants. Tolerating minimal diet. GENITOURINARY: Continues to void INTEGUMENTARY: Skin is warm and dry NEUROLOGIC: Cranial nerves II through XII intact MUSKULOSKELETAL: Able to move all extremities, strength equal bilaterally, gait normal PSYCHIATRIC: Alert and oriented to person place and time, appropriate affect, intact judgment and insight - Allied health notes Allied health notes reviewed: nursing - Labs CBC & Chem 7: 05/10/22 07:54 05/10/22 07:54 Labs: Abnormal Lab Results - Last 24 Hours (Table) 05/09/22 05/09/22 05/09/22 Range/Units 07:28 07:28 07:33 MCHC 30.6 L (31.0-37.0) g/dL RDW 15.6 H (11.5-15.5) % C-Reactive Protein 2.5 H (<1.0) mg/dL Procalcitonin 0.10 H (0.02-0.09) ng/mL Microbiology - Last 24 Hours (Table) 05/07/22 12:30 Anaerobic Culture - Preliminary Pleural Fluid 05/05/22 10:33 Blood Culture - Preliminary Blood No Growth after 96 hours 05/07/22 12:30 Gram Stain - Preliminary Pleural Fluid Body Fluid Culture - Preliminary 05/06/22 06:56 Blood Culture - Preliminary Blood No Growth after 72 hours Assessment and Plan Assessment: 1. Right-sided chronic pleural effusion, status post thoracentesis 4, pathology negative for malignancy 2. Shortness of breath secondary to above 3. History of asbestos exposure 4. Rheumatoid arthritis 5. Paroxysmal atrial fibrillation, history of pulmonary embolism, on Eliquis for anticoagulation, currently sinus rhythm 6. Mild mitral and mild tricuspid regurgitation with normal left ventricular systolic function, being monitored outpatient 7. Recent history of melanoma skin cancer status post resection in December 2021 8. Type 2 diabetes 9. Previous tobacco dependence 10. COPD Plan: 1. Our plan is for right-sided thoracotomy with decortication tomorrow, 05/11/[address] Rosenbaum. Patient will be nothing by mouth after midnight 2. Continue to hold Eliquis 3. Encourage incentive spirometry use 10 times every hour while awake 4. Increase activity as tolerated 5. Continue supportive treatment 6. Management of other comorbidities per primary care, pulmonology, cardiology 7. More recommendations to follow
--- NOTE | 2022-05-10 11:06 | P.PN ---
Subjective Progress Note Date: 05/10/22 Principal diagnosis: Right-sided chronic pleural effusion History of S2 status exposure and asbestosis lung Shortness of breath multifactorial due to fluid overload COPD Chest pain resolved Prior history of multiple medical problems including deep venous thrombosis,, cell carcinoma of the skin, melanoma 05/10/2022, patient seen eval examined during the rounds labs reviewed medications reviewed, respiratory status slightly improved, patient mostly on room air, shortness of breath continued to improve, denies any chest pain, patient is scheduled for right thoracotomy with decortication for tomorrow if remains afebrile vitals are stable, patient currently has been on IV Rocephin for nonspecific culture remains on Lasix, BUN/creatinine stable 21/0.77, potassium is 3.8 05/09/2022, patient remains short of breath especially during activity and exertion oxygen saturation is stable, thoracic surgery and evaluated the patient they feel that VATS would not be an hour patient will likely need a thoracotomy. Patient is currently off of direct oral anticoagulant surgery is being considered for Saturday05/07/2022, patient seen eval reexamined the status post thoracentesis is about fluid has been removed by interventional radiology. Postprocedure no complication noted Doing well remains afebrile with hemodynamically stable oxygen saturation improved to 96% on room air, blood cultures have been positive for micrococcus species and bacillus final culture however has been negative. Patient remains on cefazolin tolerating well This patient is well-known to me readmitted for recurrent pleural effusion. 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 Patient is a 77-year-old male with PMH of COPD, melanoma status post resection, history of pulmonary embolus on Eliquis, recurrent right-sided pleural effusion, rheumatoid arthritis and type 2 diabetes mellitus who presents the ED for shortness of breath. Patient has had multiple hospital admissions, most recently on April 18 and discharged on April 20. Since his discharge, patient rep orts shortness of breath, worsened with exertion has been progressively getting worse. Today he was at his PCP clinic at [facility] when he started experiencing substernal chest pain. He describes the chest pain to be pressure-like in nature with no radiation. There is no alleviating or aggravating factors. Pain had no radiation. These symptoms prompted him to come to the ED. He denies any headache, lower extremity edema, nausea or vomiting, fever or chills, cough, palpitations, changes in urination or bowel habits. He reports a decrease in appetite and subjective weight loss. He denies any dizziness, numbness/weakness/tingling of the extremities. In the ED, his vital signs were stable, though tachycardic with heart rate in the 90s. CBC showed hemoglobin of 12.6. INR was 1. CMP showed chloride of 109, bicarb of 21, glucose 110, alkaline phosphatase of 198. BNP was 219. Troponin was less than 0.0122. I was unable to pull up the EKG in the EMR. Urinalysis showed large leukocyte esterase. Chest x-ray showed chronic moderate right pleural effusion. Currently patient is being treated with bronchodilators as needed, being continued on the direct oral anticoagulant which is currently on hold for anticipation of thoracentesis Objective - Vital Signs Vital signs: Vital Signs Temp 98.0 F 05/10/22 03:47 Pulse 95 05/10/22 03:47 Resp 16 05/10/22 03:47 BP 114/67 05/10/22 03:47 Pulse Ox 96 05/10/22 03:47 FiO2 Intake & Output 05/09/22 05/10/22 05/10/22 18:59 06:59 18:59 Intake Total 240 118 Balance 240 118 Weight 80.9 kg 81.7 kg Intake: Oral 240 118 Other: Voiding Method Urinal # Voids 1 1 # Bowel Movements 1 - Exam Constitutional General appearance: average body habitus, cooperative, disheveled, mild distress - EENT Eyes: EOMI, PERRLA Ears: bilateral: normal - Neck Carotids: bilateral: upstroke normal Thyroid: negative: normal size - Respiratory Respiratory: right: diminished, dullness, left: rales - Cardiovascular Rhythm: regular Heart sounds: normal: S1, S2 - Gastrointestinal General gastrointestinal: normal bowel sounds - Integumentary Integumentary: normal turgor - Neurologic Neurologic: CNII-XII intact - Musculoskeletal Musculoskeletal: gait normal, generalized weakness, strength equal bilaterally - Psychiatric Psychiatric: A&O x's 3, appropriate affect, intact judgment & insight Results - Labs CBC & Chem 7: 05/10/22 07:54 05/10/22 07:54 Labs: Abnormal Lab Results - Last 24 Hours (Table) 05/09/22 05/10/22 05/10/22 Range/Units 07:28 07:54 07:54 Hgb 12.7 L (13.0-17.5) gm/dL RDW 15.9 H (11.5-15.5) % BUN 21 H (9-20) mg/dL Glucose 105 H (74-99) mg/dL Alkaline Phosphatase 154 H (38-126) U/L Total Protein 6.1 L (6.3-8.2) g/dL Procalcitonin 0.10 H (0.02-0.09) ng/mL Microbiology - Last 24 Hours (Table) 05/06/22 06:56 Blood Culture - Preliminary Blood No Growth after 96 hours 05/07/22 12:30 Gram Stain - Preliminary Pleural Fluid Body Fluid Culture - Preliminary 05/07/22 12:30 Anaerobic Culture - Preliminary Pleural Fluid 05/05/22 10:33 Blood Culture - Preliminary Blood No Growth after 96 hours Assessment and Plan Assessment: Right-sided chronic pleural effusion History of asbestosis exposure and asbestosis lung mesothelioma cannot be excluded, suspect occult malignancy versus melanoma Shortness of breath multifactorial due to fluid overload and COPD Chest pain resolved Prior history of multiple medical problems including deep venous thrombosis,, cell carcinoma of the skin, melanoma Plan: Keep him off of direct oral anticoagulant As per thoracic surgery evaluation in progress for thoracotomy and decortication Status post right-sided thoracentesis multiple times with negative cytology Blood culture likely to be contaminant repeat blood cultures have been negative Time with Patient: Greater than 30
[2022-05-10] MEDS: MIRTAZAPINE 15 MG TAB PO SCH (21:00)
[2022-05-10] MEDS: ATORVASTATIN 20 MG TAB PO SCH (21:00)
[2022-05-10] MEDS: TAMSULOSIN 0.4 MG CAP.ER.24H PO SCH (21:00)
[2022-05-11] MEDS: PANTOPRAZOLE 40 MG TABLET PO SCH (06:12)
[2022-05-11] MEDS: SYMBICORT 80-4.5 MCG INHALER INHALATION SCH ×2 (08:01→19:54)
[2022-05-11] MEDS: TIOTROPIUM 2.5 MCG INHALER INHALATION SCH (08:01)
[2022-05-11] MEDS: POTASSIUM CHLORIDE ER 10 MEQ TAB.ER.PRT PO SCH (09:34)
[2022-05-11] MEDS: ALPRAZolam 0.25 MG TAB PO PRN ×2 (09:34→21:17)
[2022-05-11] MEDS: CALCIUM CARB-VIT D 500 MG-5 MCG TAB PO SCH ×2 (09:34→21:17)
[2022-05-11] MEDS: METOPROLOL TARTRATE 25 MG TAB PO SCH ×2 (09:34→21:17)
[2022-05-11] MEDS: CHOLECALCIFEROL 25 MCG (1000 IU) TABLET PO SCH (09:34)
[2022-05-11] MEDS: FUROSEMIDE 10 MG/ML 4 ML VIAL IV SCH (09:35)
[2022-05-11] MEDS: KETOCONAZOLE 2% SHAMPOO 1 APPLIC/ML TOPICAL SCH (09:35)
[2022-05-11] MEDS: LEFLUNOMIDE 20 MG TAB PO SCH (09:35)
--- NOTE | 2022-05-11 10:40 | P.PN ---
Subjective Progress Note Date: 05/11/22 Patient states that he schedule physical at the procedure today at 1 PM. He is denying any acute complaints. No acute issues overnight. 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 Psych - Calm and cooperative - Labs CBC & Chem 7: 05/10/22 07:54 05/10/22 07:54 Labs: Microbiology - Last 24 Hours (Table) 05/07/22 12:30 Anaerobic Culture - Final Pleural Fluid 05/06/22 06:56 Blood Culture - Preliminary Blood No Growth after 120 hours 05/07/22 12:30 Gram Stain - Final Pleural Fluid Body Fluid Culture - Final 05/05/22 10:33 Blood Culture - Preliminary Blood No Growth after 120 hours Assessment and Plan Assessment: #Depression #Shortness of breath, multifactorial, likely related to COPD, pulmonary embolus, recurrent right-sided pleural effusion #Positive blood culture #Chest pain #Abnormal urinalysis Chronic condition: Rheumatoid arthritis, diabetes mellitus Continue Remeron. Patient presents with progressively worsening shortness of breath. This is likely related to right-sided pleural effusion that is seen on chest x-ray. Pathology results from previous admission shows no malignancy. Pulmonology on board. Chest US shows moderate pleural effusion. Continue albuterol neb as needed for shortness of breath and wheezing. Restart Tiotropium and Symbicort. Status post thoracentesis with 310 mL drained. Supplemental O2 to maintain O2 saturation greater than 92%. Continue Lasix 40 mg IV QD. Repeat chest x-ray shows small right-sided pleural effusion. Patient seen by CT surgery who reviewed his CT scan. CT surgery plans on VATS today. Ramonitais on hold for surgery and will resume once cleared by CT surgery. Multiple blood cultures grew contaminated bacteria. Per infectious disease this is likely a contaminant. Patient empirically started on IV Rocephin. Patient blood cultures from 05/06/2022 are negative. Pro-calcitonin is within normal limits. Infectious disease managing antibiotics ACS ruled out. Echocardiogram from 10/2021 shows EF 50-55% with mild concentric LVH. Patient will be continued on Lipitor and Metoprolol. Telemetry monitoring. Cardiology recommends no further workup. Patient has no urinary symptoms. No need for antibiotics. DVT prophylaxis: [Lovenox] Anticipated discharge: [We'll discharge patient once cleared by CT surgery]
[2022-05-11] MEDS ORDERED: ONDANSETRON 4 MG/2 ML VIAL IVP ONE ×2 (10:57→14:31)
[2022-05-11] MEDS ORDERED: LIDOCAINE 1% (10MG/ML) FOR IV START INTRADERMA PRN (10:57)
[2022-05-11] MEDS ORDERED: LACTATED RINGERS 1,000 ML IV SCH ×2 (10:57)
[2022-05-11] MEDS ORDERED: HYDROmorphone 0.5 MG/0.5 ML SYRINGE IVP PRN (10:57)
[2022-05-11] MEDS ORDERED: DEXAMETHASONE SOD PHOSPHATE 4 MG/ML 1 ML VIAL IV ONE (10:57)
[2022-05-11] MEDS ORDERED: MIDAZOLAM 2 MG/2 ML VIAL IV PRN (10:57)
[2022-05-11] MEDS: ENOXAPARIN 40 MG/0.4 ML SYRINGE SQ SCH (11:04)
--- NOTE | 2022-05-11 13:24 | P.PN ---
Subjective Progress Note Date: 05/11/22 Principal diagnosis: Right-sided chronic pleural effusion History of S2 status exposure and asbestosis lung Shortness of breath multifactorial due to fluid overload COPD Chest pain resolved Prior history of multiple medical problems including deep venous thrombosis,, cell carcinoma of the skin, melanoma 05/11/2022, patient seen eval examined during the rounds labs reviewed medications reviewed care plan discussed, respiratory status stable, patient is on room air breathing comfortably, patient is being planned for thoracotomy and decortication for later on today. Afebrile with stable hemodynamics saturation is 98% medications reviewed 05/10/2022, patient seen eval examined during the rounds labs reviewed medications reviewed, respiratory status slightly improved, patient mostly on room air, shortness of breath continued to improve, denies any chest pain, patient is scheduled for right thoracotomy with decortication for tomorrow if remains afebrile vitals are stable, patient currently has been on IV Rocephin for nonspecific culture remains on Lasix, BUN/creatinine stable 21/0.77, potassium is 3.8 05/09/2022, patient remains short of breath especially during activity and exertion oxygen saturation is stable, thoracic surgery and evaluated the patient they feel that VATS would not be an hour patient will likely need a thoracotomy. Patient is currently off of direct oral anticoagulant surgery is being considered for Saturday05/07/2022, patient seen eval reexamined the status post thoracentesis is about fluid has been removed by interventional radiology. Postprocedure no complication noted Doing well remains afebrile with hemodynamically stable oxy gen saturation improved to 96% on room air, blood cultures have been positive for micrococcus species and bacillus final culture however has been negative. Patient remains on cefazolin tolerating well This patient is well-known to me readmitted for recurrent pleural effusion. 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 Patient is a 77-year-old male with PMH of COPD, melanoma status post resection, history of pulmonary embolus on Eliquis, recurrent right-sided pleural effusion, rheumatoid arthritis and type 2 diabetes mellitus who presents the ED for shortness of breath. Patient has had multiple hospital admissions, most recently on April 18 and discharged on April 20. Since his discharge, patient reports shortness of breath, worsened with exertion has been progressively getting worse. Today he was at his PCP clinic at [facility] when he started experiencing substernal chest pain. He describes the chest pain to be pressure- like in nature with no radiation. There is no alleviating or aggravating factors. Pain had no radiation. These symptoms prompted him to come to the ED. He denies any headache, lower extremity edema, nausea or vomiting, fever or ch ills, cough, palpitations, changes in urination or bowel habits. He reports a decrease in appetite and subjective weight loss. He denies any dizziness, numbness/weakness/tingling of the extremities. In the ED, his vital signs were stable, though tachycardic with heart rate in the 90s. CBC showed hemoglobin of 12.6. INR was 1. CMP showed chloride of 109, bicarb of 21, glucose 110, alkaline phosphatase of 198. BNP was 219. Troponin was less than 0.0122. I was unable to pull up the EKG in the EMR. Urinalysis showed large leukocyte esterase. Chest x-ray showed chronic moderate right pleural effusion. Currently patient is being treated with bronchodilators as needed, being continued on the direct oral anticoagulant which is currently on hold for anticipation of thoracentesis Objective - Vital Signs Vital signs: Vital Signs Temp 96.8 F L 05/11/22 12:00 Pulse 81 05/11/22 08:00 Resp 18 05/11/22 12:00 BP 147/90 05/11/22 12:00 Pulse Ox 97 05/11/22 08:00 FiO2 Intake & Output 05/10/22 05/11/22 05/11/22 18:59 06:59 18:59 Intake Total 298 0 Balance 298 0 Intake: Oral 298 0 Other: Voiding Method Urinal # Voids 1 1 # Bowel Movements 1 - Exam Constitutional General appearance: average body habitus, cooperative, disheveled, mild distress - EENT Eyes: EOMI, PERRLA Ears: bilateral: normal - Neck Carotids: bilateral: upstroke normal Thyroid: negative: normal size - Respiratory Respiratory: right: diminished, dullness, left: rales - Cardiovascular Rhythm: regular Heart sounds: normal: S1, S2 - Gastrointestinal General gastrointestinal: normal bowel sounds - Integumentary Integumentary: normal turgor - Neurologic Neurologic: CNII-XII intact - Musculoskeletal Musculoskeletal: gait normal, generalized weakness, strength equal bilaterally - Psychiatric Psychiatric: A&O x's 3, appropriate affect, intact judgment & insight Results - Labs CBC & Chem 7: 05/10/22 07:54 05/10/22 07:54 Labs: Microbiology - Last 24 Hours (Table) 05/05/22 10:33 Blood Culture - Final Blood No Growth after 144 hours 05/07/22 12:30 Anaerobic Culture - Final Pleural Fluid 05/06/22 06:56 Blood Culture - Preliminary Blood No Growth after 120 hours 05/07/22 12:30 Gram Stain - Final Pleural Fluid Body Fluid Culture - Final Assessment and Plan Assessment: Right-sided chronic pleural effusion History of asbestosis exposure and asbestosis lung mesothelioma cannot be excluded, suspect occult malignancy versus melanoma Shortness of breath multifactorial due to fluid overload and COPD Chest pain resolved Prior history of multiple medical problems including deep venous thrombosis,, cell carcinoma of the skin, melanoma Plan: Keep him off of direct oral anticoagulant As per thoracic surgery evaluation in progress for thoracotomy and decortication later on today Status post right-sided thoracentesis multiple times with negative cytology Blood culture likely to be contaminant repeat blood cultures have been negative Time with Patient: Greater than 30
[2022-05-11] MEDS ORDERED: LACTATED RINGERS 1,000 ML IV ONE ×2 (14:02→16:43)
[2022-05-11] MEDS ORDERED: fentaNYL (PF) 50 MCG/ML 2 ML AMP IVP ONE (14:03)
[2022-05-11] MEDS ORDERED: MIDAZOLAM 2 MG/2 ML VIAL IVP ONE (14:10)
[2022-05-11] MEDS ORDERED: NALOXONE 0.4 MG/ML 1 ML VIAL IV PRN (14:32)
--- NOTE | 2022-05-11 14:39 | P.ANPRN ---
Procedure Note - Anesthesia - Epidural/Spinal Epidural Time Out Performed: Yes Date of Procedure: 05/11/22 Procedure Start Time: 14:04 Procedure Stop Time: 14:21 Location of Patient: PreOp Indication: Acute Post-Operative Pain, Requested by Surgeon Sedation Type: Sedate with meaningful contact maintained Preparation: Sterile Prep Number of Attempts: 3 Position: Sitting Catheter Depth at Skin (cm): 10 Catheter: Indwelling Needle Guage: 18 Injectate: Test Dose Lidocaine1.5% w/1:200,000 epi Blood Aspirated: No Pain Paresthesia on Injection Noted: No Events: Uneventful and Well Tolerated
[2022-05-11] MEDS ORDERED: ROCURONIUM 10 MG/ML (5 ML VIAL) IV ONE (15:00)
[2022-05-11] MEDS ORDERED: SODIUM CHLORIDE 0.9% 100 ML BAG ONE (15:00)
[2022-05-11] MEDS ORDERED: SUCCINYLCHOLINE CHLORIDE 200 MG/10 ML VIAL IV ONE (15:00)
[2022-05-11] MEDS ORDERED: ceFAZolin 1,000 MG VIAL ONE (15:00)
[2022-05-11] MEDS ORDERED: PHENYLEPHRINE-0.9% NACL SYG 1,000 MCG/10 ML SYRINGE ONE (15:00)
[2022-05-11] MEDS ORDERED: LIDOCAINE 2% INJ 20 MG/ML (2 ML VIAL) ONE (15:00)
[2022-05-11] MEDS ORDERED: SUGAMMADEX SODIUM 200 MG/2 ML SDV IV ONE (15:00)
[2022-05-11] MEDS ORDERED: PROPOFOL 10 MG/ML 20 ML VIAL IV ONE (15:00)
[2022-05-11] MEDS ORDERED: fentaNYL (PF) 50 MCG/ML 2 ML AMP ONE (15:00)
[2022-05-11] MEDS ORDERED: MIDAZOLAM 2 MG/2 ML VIAL ONE (15:00)
[2022-05-11] MEDS ORDERED: ePHEDrine 50 MG/ML 1 ML VIAL ONE (15:00)
--- NOTE | 2022-05-11 17:49 | P.OP ---
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 Bronchoscopy 2. Right anterolateral thoracotomy with partial decortication of right lung 3. Extensive lysis of adhesions Implants: 28F Straight Chest tube (anterior on skin) 32F Right angled chest tube (posterior on skin) Anesthesia: CHERRY Surgeon: Talha Rosenbaum Loan Adviser #1: Ranjeet Hansen Estimated Blood Loss (ml): 100 Pathology: other (Right pleural rind for pathology and culture) Condition: stable Disposition: PACU Indications for Procedure: This patient is a 77 year-old male with multiple medical problems including a- fib on eliquis who has had recurrent hospital admissions recently for right sided effusions requiring multiple thoracentesis procedures. CT scan revealed a chronic empyema with trapping of the right lower lobe. The patient endorsed shortness of breath even walking to the bathroom at home which is new for him over the last year. Given the chronicity of the findings, he was deemed high risk and this was discussed with the patient and his family. They wanted to proceed with surgical decortication which I thought was reasonable given his lack of quality of life. Operative Findings: Thick chronic pleural rind circumferential around entire lung. Worse in lower lobe. Pleural rind peeled off as much as possible on lower lobe but given chronicity of scar it was difficult to obtain a good plane. Rest of the rind scored to allow inflation of lung. Description of Procedure: The patient underwent epidural and arterial line placement by anesthesia in the pre-operative suite. He was brought back to the operating room and placed in the supine position. General anesthesia was induced and he was intubated with a double lumen tube. Guerra catheter was placed. Placement was confirmed with bronchoscopy. In addition, bronchoscopy was performed for diagnostic purposes and it did not reveal any endobronchial lesions and minimal secretions. The patient was positioned in the left lateral decubitus position and all pressure points were padded. The ETT was checked once again and the right lung was isolated and the right chest was prepped and draped in the usual fashion. A time-out was performed and antibiotics were given. A transverse incision was made on the chest wall beneath the scapula. This was carried down through the subcutaneous tissues and latismuss dorsi was divided. The serratus anterior was retracted and spared. I gained entry into the chest in the 7th intercostal space. There was an intense rind noted here. Retractors was placed and the lung was bluntly dissected away from the chest wall as much as possible with a sponge stick. There was a pocket entered inferiorly with serous fluid. This was drained. There was a very thick white rind covering the entire right lung. I scored the rind using electrocautery and knife in multiple areas and used a peanut to peel away the lung. The lung was intensely adhered to this rind and I was able to get in a good plane in some areas but had difficulty in others. I peeled away as much rind as I safely could. This was sent to pathology and for culture. At this point, I did not want to do more harm than good. The medial portion of the right lower lobe was freed up. Laterally it was nearly impossible to get in a good plane and I decided to score the rind in multiple linear areas with a knife. The right chest was irriagated with warm NS and the right lung was inflated with decent result. A 28F straight and 32F right angled chest tube was placed. The thoracotomy was closed with several #1 vicryl pericostals, 0-PDS for muscle and fascia and 2-0 and 3-0 vicryl for the subcutaneous layer and skin. Glue was applied. The patient was extubated with air leaks in both tubes. He tolerated the procedure well with minimal EBL (~100) and did not require transfusion.
[2022-05-11 18:01] LABS: Glucose,Whole Blood 138 mg/dL (70-110)
[2022-05-11] MEDS ORDERED: LABETALOL SYRINGE 5 MG/ML IVP ONE (18:05)
[2022-05-11 18:36] LABS: Glucose,Whole Blood 136 mg/dL (70-110)
--- NOTE | 2022-05-11 18:39 | XR ---
EXAMINATION TYPE: XR chest 1V portable DATE OF EXAM: 05/11/2022 COMPARISON: 05/08/2022 HISTORY: Right lung surgery TECHNIQUE: Single view FINDINGS: There is 2 right-sided chest tubes. There is some interstitial infiltrates in the mid and lower lung cosme. There is mild atelectasis right midlung. No heart failure. There is left shoulder prosthesis. IMPRESSION: There is clearing of the right pleural effusion compared to old exam. No obvious pneumoth orax. Coarse pulmonary interstitial lower lobe infiltrates are still increased.
[2022-05-11] MEDS: ROPIVACAINE 250 MG, HYDROMORPHONE (PF) 5 MG in SODIUM CHLORIDE 0.9% 200 ML EPIDURAL PRN (19:30)
[2022-05-11] MEDS: ATORVASTATIN 20 MG TAB PO SCH (21:17)
[2022-05-11] MEDS: TAMSULOSIN 0.4 MG CAP.ER.24H PO SCH (21:17)
[2022-05-11] MEDS: MIRTAZAPINE 15 MG TAB PO SCH (21:26)
[2022-05-12 06:19] LABS: HGB 11.3 gm/dL (13.0-17.5); Hypochromasia Slight; MCH 26.8 pg (25.0-35.0); MCHC 32.3 g/dL (31.0-37.0); Mean Platelet Volume 8.9; Platelet Count 277 k/uL (150-450); RBC 4.22 m/uL (4.30-5.90); RDW 15.9 % (11.5-15.5)
[2022-05-12 06:34] LABS: African American GFR (CKD) >90 (>60 ml/min/1.73 sqM); Anion Gap 5 mmol/L; Blood Urea Nitrogen 21 mg/dL (9-20); Calcium 8.6 mg/dL (8.4-10.2); Carbon Dioxide 30 mmol/L (22-30); Chloride 100 mmol/L (98-107); Glucose 113 mg/dL (74-99); Non-African American GFR(CKD) 90 (>60 ml/min/1.73 sqM); Potassium 4.7 mmol/L (3.5-5.1); Sodium 135 mmol/L (137-145)
[2022-05-12] MEDS ORDERED: IPRATROPIUM-ALBUTEROL 3 ML NEB IH PRN (06:56)
[2022-05-12] MEDS ORDERED: LACTATED RINGERS 1,000 ML IV SCH (06:56)
[2022-05-12] MEDS ORDERED: ONDANSETRON 4 MG/2 ML VIAL IVP PRN (06:56)
[2022-05-12] MEDS ORDERED: bisacodyL 10 MG SUPP RECTAL PRN (06:56)
[2022-05-12] MEDS ORDERED: METOCLOPRAMIDE 5 MG/ML 2 ML VIAL IVP PRN (06:56)
[2022-05-12 07:13] LABS: Glucose,Whole Blood 112 mg/dL (70-110)
[2022-05-12] MEDS: TIOTROPIUM 2.5 MCG INHALER INHALATION SCH (07:28)
[2022-05-12] MEDS: SYMBICORT 80-4.5 MCG INHALER INHALATION SCH ×2 (07:28→19:32)
[2022-05-12] MEDS: IPRATROPIUM-ALBUTEROL 3 ML NEB IH SCH ×5 (07:29→19:38)
--- NOTE | 2022-05-12 07:43 | XR ---
EXAMINATION TYPE: XR chest 1V DATE OF EXAM: 05/12/2022 CLINICAL HISTORY: Post right-sided thoracotomy progress study. TECHNIQUE: Single AP portable upright view of the chest is obtained. COMPARISON: Chest x-ray from one day earlier and older studies. FINDINGS: Stable 2 right-sided chest tubes. Persistent small right pleural fluid collection laterall y. Persistent small air collection lateral lung base. No new mediastinal shift. Persistent right midl jaylon linear scarring and/or atelectasis. Patchy bibasilar opacities remain present. Cardiac silhouette size stable and within normal limits. Surgical change to left shoulder partially imaged. IMPRESSION: Persistent small mid to lower lung lateral hydropneumothorax despite right-sided chest tu bes. Persistent patchy bibasilar acute infiltrates and/or atelectasis and right midlung linear scarri ng and/or atelectasis. No significant change from one day earlier.
--- NOTE | 2022-05-12 07:45 | P.PN ---
Progress Note - Text Date: 05/12/2022 Time: 07:22 The patient is status post, right thoracotomy, postoperative day number 1 The patient has no complaints of nausea vomiting or headache. The patient does not complain of any lower extremity numbness or weakness. The epidural is running at 7.5 mL per hour. VAS 1-to-10. The epidural will be maintained and adjusted as needed.
[2022-05-12] MEDS: PANTOPRAZOLE 40 MG TABLET PO SCH (07:53)
[2022-05-12] MEDS: CHOLECALCIFEROL 25 MCG (1000 IU) TABLET PO SCH (08:04)
[2022-05-12] MEDS: HEPARIN SODIUM,PORCINE/PF 5,000 UNIT/0.5 ML SYRINGE SQ SCH ×3 (08:04→20:51)
[2022-05-12] MEDS: METOPROLOL TARTRATE 25 MG TAB PO SCH ×2 (08:04→17:41)
[2022-05-12] MEDS: LEFLUNOMIDE 20 MG TAB PO SCH (08:05)
--- NOTE | 2022-05-12 08:46 | XR ---
EXAMINATION TYPE: XR chest 1V portable DATE OF EXAM: 05/12/2022 CLINICAL HISTORY: Difficulty breathing progress study. Postoperative right thoracotomy. TECHNIQUE: Single AP portable upright view of the chest is obtained. COMPARISON: Chest x-ray from earlier today and older studies aerated FINDINGS: Stable 2 right-sided chest tubes. Persistent small right pleural fluid collection laterall y. Persistent small air collection right lateral lung base. No new mediastinal shift. Persistent righ t midlung linear scarring and/or atelectasis. Patchy bibasilar opacities remain present. Cardiac silh ouette size stable and within normal limits. Surgical change to left shoulder partially imaged. IMPRESSION: Persistent posttreatment change to the right lung with lateral basilar residual cavity an d 2 right-sided chest tubes. Persistent patchy bibasilar acute infiltrates and/or atelectasis and rig ht midlung linear scarring and/or atelectasis. No significant change from earlier today.
[2022-05-12] MEDS: ALPRAZolam 0.25 MG TAB PO PRN (08:49)
--- NOTE | 2022-05-12 09:24 | P.PN ---
Subjective Progress Note Date: 05/12/22 Principal diagnosis: Chronic right-sided empyema with trapped lung, status post thoracentesis 4, pathology negative for malignancy, shortness of breath. Past medical history significant for asbestos exposure, rheumatoid arthritis, paroxysmal atrial fibrillation, pulmonary embolism on Eliquis for anticoagulation, mild mitral and mild tricuspid regurgitation with normal left ventricular systolic function, recent history of melanoma skin cancer status post resection in December 2021, type 2 diabetes, previous tobacco dependence, COPD. POD #1 bronchoscopy, right anterolateral thoracotomy with partial decortication of right lung, extensive lysis of adhesions. The patient was seen and examined in follow-up today 05/12/2022 at his bedside in the intensive care unit. Currently he is lying in bed with his head elevated, is awake, alert, oriented 3 and is in no acute distress. Oxygen saturations are 96% on 2 L nasal cannula and he is achieving 1000 mL on his incentive spirometry. Anterior and posterior right pleural chest tubes remain in place to low continuous wall suction -20 cm H2O. There is an intermittent air leak present to his anterior chest tube and no air leak present to his posterior chest tube. Anterior chest tube is draining thin serosanguineous drainage with 5 mL output in the last 8 hours and 50 mL output since surgery. Posterior chest tube is draining thin serosanguineous drainage with 125 mL output in the last 8 hours and 160 mL output since surgery. He remains hemodynamically stable and is currently on no inotropic or pressor support. Epi dural site is clean, dry and intact. Epidural is currently infusing at 7.5 mL per hour. He denies any complaints of lower extremity numbness or weakness and his rating his pain 7 out of 10 on the pain scale at this time. He does report that overall he feels fairly comfortable and denies any complaints of shortness of breath. Guerra catheter remains in place for accurate I's and O's and will likely be removed once the epidural has been discontinued. Laboratory results this morning show a WBC count of 8.0, hemoglobin 11.3, hematocrit 35.0, platelets 277, sodium 135, potassium 4.7, BUN 21, creatinine 0.72, glucose 113 and calcium 8.6. Objective - Vital Signs Vital signs: Vital Signs Temp 98.0 F 05/12/22 04:00 Pulse 112 H 05/12/22 07:31 Resp 13 05/12/22 07:00 BP 132/102 05/12/22 07:00 Pulse Ox 93 L 05/12/22 07:00 FiO2 Intake & Output 05/11/22 05/12/22 05/12/22 18:59 06:59 18:59 Intake Total 1250 853 Output Total 370 491 Balance 880 362 Weight 82.4 kg Intake: IV 1250 800 LR @75 750 cefTRIAXone 2 gm In 50 Sodium Chloride 0.9% 50 ml @ 100 mls/hr IVPB Q24H [facility] Rx#:[id number] Intake, IV Titration 53 Amount Ropivacaine 250 mg 53 Hydromorphone (Pf) 5 mg In Sodium Chloride 0.9% 200 ml @ Per Protocol EPIDURAL .Q0M PRN Rx#: [id number] Oral 0 Output: Chest Tube Drainage 126 Anterior Chest 2 Posterior Chest 124 Urine 270 365 Estimated Blood Loss 100 Other: Voiding Method Indwelling Catheter # Voids 2 # Bowel Movements 0 ABP, PAP, CO, CI - Last Documented Arterial Blood Pressure 103/99 - Exam CONSTITUTIONAL: Appears comfortable, cooperative, no acute distress. RESPIRATORY: Lungs sounds diminished bilaterally, right greater than left. Few scattered crackles to his left lower lobe. Respirations are symmetrical, nonlabored. Currently on 2 L nasal cannula with oxygen saturation 96%. Able to achieve 1000 mL on his incentive spirometry. Strong cough. CARDIOVASCULAR: S1, S2 present. Regular rate and rhythm, sinus tachycardia on telemetry with heart rate of 107 BPM. Palpable peripheral pulses bilaterally. No edema present. No calf pain or tenderness noted. Sequential compression devices in place to his bilateral lower extremities. GASTROINTESTINAL: Abdomen soft, nontender, nondistended. Active bowel sounds present 4 quadrants. Tolerating minimal diet. GENITOURINARY: Guerra catheter in place for accurate I's and O's. 365 mL of urine output in the last 8 hours. INTEGUMENTARY: Skin is warm and dry, no clubbing or cyanosis is present. Dressings to his right thoracotomy incision and chest tube insertion sites are clean, dry and intact. No drainage or redness is present. NEUROLOGIC: Cranial nerves II through XII intact. Epidural site clean, dry and intact. MUSKULOSKELETAL: Able to move all extremities, strength equal bilaterally, gait normal. PSYCHIATRIC: Alert and oriented to person place and time, appropriate affect, intact judgment and insight INVASIVE LINES AND TUBES: Right anterior and posterior pleural chest tubes r emain in place to low continuous wall suction -20 cm H2O. Intermittent air leak present to his right anterior pleural chest tube and no air leak present to the right posterior pleural chest tube. Draining thin serosanguineous drainage. - Allied health notes Allied health notes reviewed: nursing - Labs CBC & Chem 7: 05/12/22 05:45 05/12/22 05:45 Labs: Abnormal Lab Results - Last 24 Hours (Table) 05/10/22 05/11/22 05/11/22 Range/Units 07:54 17:58 18:35 RBC (4.30-5.90) m/uL Hgb (13.0-17.5) gm/dL Hct (39.0-53.0) % RDW (11.5-15.5) % Sodium (137-145) mmol/L BUN (9-20) mg/dL Glucose (74-99) mg/dL POC Glucose (mg/dL) 138 H 136 H (70-110) mg/dL Crossmatch See Detail 05/12/22 05/12/22 05/12/22 Range/Units 05:45 05:45 07:12 RBC 4.22 L (4.30-5.90) m/uL Hgb 11.3 L (13.0-17.5) gm/dL Hct 35.0 L (39.0-53.0) % RDW 15.9 H (11.5-15.5) % Sodium 135 L (137-145) mmol/L BUN 21 H (9-20) mg/dL Glucose 113 H (74-99) mg/dL POC Glucose (mg/dL) 112 H (70-110) mg/dL Crossmatch Microbiology - Last 24 Hours (Table) 05/11/22 18:22 Anaerobic Culture - Preliminary Other - Other 05/11/22 18:22 Fungal Culture - Preliminary Other - Other 05/11/22 18:22 Acid Fast Bacilli Culture - Preliminary Other - Other 05/11/22 18:22 Tissue Culture - Preliminary Other - Other 05/05/22 10:33 Blood Culture - Final Blood No Growth after 144 hours 05/07/22 12:30 Anaerobic Culture - Final Pleural Fluid 05/06/22 06:56 Blood Culture - Preliminary Blood No Growth after 120 hours 05/07/22 12:30 Gram Stain - Final Pleural Fluid Body Fluid Culture - Final - Imaging and Cardiology Chest x-ray: report reviewed, image reviewed Assessment and Plan Assessment: 1. Chronic right-sided empyema with trapped lung, status post thoracentesis 4, pathology negative for malignancy, status post right anterolateral thoracotomy with partial decortication of right lung and extensive lysis of adhesions 2. Shortness of breath secondary to above 3. History of asbestos exposure 4. Rheumatoid arthritis 5. Paroxysmal atrial fibrillation, history of pulmonary embolism, on Eliquis for anticoagulation as an outpatient, currently sinus rhythm 6. Mild mitral and mild tricuspid valve regurgitation with normal left v entricular systolic function, being monitored outpatient 7. Recent history of melanoma skin cancer status post resection in December 2021 8. Type 2 diabetes 9. Previous tobacco dependence 10. COPD Plan: 1. Place right pleural chest tubes to water seal. Continue to monitor for airleak resolution. 2. Wean oxygen as tolerated. Encourage use of incentive spirometry 10 times every hour while awake. 3. Out of bed for all meals, increase activity as tolerated. 4. Epidural management per anesthesia recommendations. Keep Guerra catheter in place and record strict and accurate I's and O's until epidural has been removed. 5. Pain control per when necessary orders. 6. Pathology and culture results remain pending. Continue to follow culture and pathology results. 7. Continue to follow labs and daily chest x-rays. 8. Pulmonary management recommendations and bronchodilators per pulmonary/critical care medicine. 9. Physical and occupational therapy have been consulted. 10. GI and DVT prophylaxis. 11. Continue to hold Eliquis. 12. Medical management other comorbidities per primary care service. 13. Remove right radial arterial line. 14. More recommendations to follow based on patient's clinical course. Time with Patient: Greater than 30
--- NOTE | 2022-05-12 10:44 | P.PN ---
Subjective Progress Note Date: 05/12/22 Yesterday patient had his VATS procedure done. After the procedure patient had 2 chest tubes placed. He is currently in the ICU. Objective - Vital Signs Vital signs: Vital Signs Temp 97.9 F 05/12/22 08:00 Pulse 110 H 05/12/22 10:00 Resp 26 H 05/12/22 10:00 BP 130/85 05/12/22 10:00 Pulse Ox 98 05/12/22 10:00 FiO2 Intake & Output 05/11/22 05/12/22 05/12/22 18:59 06:59 18:59 Intake Total 1250 853 350 Output Total 370 491 135 Balance 880 362 215 Weight 82.4 kg Intake: IV 1250 800 LR @75 750 cefTRIAXone 2 gm In 50 Sodium Chloride 0.9% 50 ml @ 100 mls/hr IVPB Q24H [facility] Rx#:[id number] Intake, IV Titration 53 Amount Ropivacaine 250 mg 53 Hydromorphone (Pf) 5 mg In Sodium Chloride 0.9% 200 ml @ Per Protocol EPIDURAL .Q0M PRN Rx#: [id number] Oral 0 350 Output: Chest Tube Drainage 126 Anterior Chest 2 Posterior Chest 124 Urine 270 365 135 Estimated Blood Loss 100 Other: Voiding Method Indwelling Catheter # Voids 2 # Bowel Movements 0 ABP, PAP, CO, CI - Last Documented Arterial Blood Pressure 131/82 - Exam General examination - Alert and Oriented 3 in NAD, appears chronically debilitated Heart - + S1S2 no murmurs Lungs - diminished breath sounds bilaterally, 2 chest tubes in the right chest Abdomen soft NT ND +ve BS Extremities - No edema 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 Psych - Calm and cooperative - Labs CBC & Chem 7: 05/12/22 05:45 05/12/22 05:45 Labs: Abnormal Lab Results - Last 24 Hours (Table) 05/10/22 05/11/22 05/11/22 Range/Units 07:54 17:58 18:35 RBC (4.30-5.90) m/uL Hgb (13.0-17.5) gm/dL Hct (39.0-53.0) % RDW (11.5-15.5) % Sodium (137-145) mmol/L BUN (9-20) mg/dL Glucose (74-99) mg/dL POC Glucose (mg/dL) 138 H 136 H (70-110) mg/dL Crossmatch See Detail 05/12/22 05/12/22 05/12/22 Range/Units 05:45 05:45 07:12 RBC 4.22 L (4.30-5.90) m/uL Hgb 11.3 L (13.0-17.5) gm/dL Hct 35.0 L (39.0-53.0) % RDW 15.9 H (11.5-15.5) % Sodium 135 L (137-145) mmol/L BUN 21 H (9-20) mg/dL Glucose 113 H (74-99) mg/dL POC Glucose (mg/dL) 112 H (70-110) mg/dL Crossmatch Microbiology - Last 24 Hours (Table) 05/06/22 06:56 Blood Culture - Final Blood No Growth after 144 hours 05/11/22 18:22 Gram Stain - Preliminary Other - Other Tissue Culture - Preliminary 05/11/22 18:22 Anaerobic Culture - Preliminary Other - Other 05/11/22 18:22 Fungal Culture - Preliminary Other - Other 05/11/22 18:22 Acid Fast Bacilli Culture - Preliminary Other - Other 05/05/22 10:33 Blood Culture - Final Blood No Growth after 144 hours 05/07/22 12:30 Anaerobic Culture - Final Pleural Fluid 05/07/22 12:30 Gram Stain - Final Pleural Fluid Body Fluid Culture - Final Assessment and Plan Assessment: #Recurrent right-sided pleural effusion #Dyspnea secondary to the above Patient has had multiple thoracenteses in the past with negative cultures and cytology On 05/11/2022 patient had VATS procedure with partial decortication Follow up on the pathology results as well as culture results from the VATS procedure Pulmonology on board Infectious disease empirically started patient on IV Rocephin Hold Eliquis until cleared by CT surgery #Depression Resume Remeron #Positive blood culture Likely contaminant Blood cultures from 05/06 are negative #Chest pain ACS ruled out. Echocardiogram from 10/2021 shows EF 50-55% with mild concentric LVH. Patient will be continued on Lipitor and Metoprolol. Telemetry monitoring. Cardiology recommends no further workup. #Abnormal urinalysis Urine culture is negative. Chronic condition: Rheumatoid arthritis, diabetes mellitus Resume home meds DVT prophylaxis: [Hold anticoagulation until cleared by CT surgery] Anticipated discharge: [We'll discharge patient once cleared by CT surgery and pulmonology]
[2022-05-12 11:32] LABS: Glucose,Whole Blood 122 mg/dL (70-110)
[2022-05-12 13:28] VITALS: BMI 24.6
--- NOTE | 2022-05-12 14:20 | P.PN ---
Subjective Progress Note Date: 05/10/22 Principal diagnosis: Positive blood culture question of empyema Patient is a 77-year-old male presenting to the hospital for increasing shortness of breath patient did have a recurrent right-sided pleural effusion with the recent thoracocentesis culture has been negative so far blood culture positive for gram positives likely contamination, the patient did have a CT of the chest with evidence of loculated right pleural effusion, possible VAT procedure per CT surgery. On today's evaluation that is 05/10/2022, the patient a remains to befebrile, the patient is breathing comfortably on room air, the patient denies chest pain, still complaining of shortness of breath on exertion no worsening cough or sputum production no abdominal pain no diarrhea Objective - Vital Signs Vital signs: Vital Signs Temp 98.2 F 05/10/22 08:00 Pulse 98 05/10/22 08:00 Resp 16 05/10/22 08:00 BP 126/77 05/10/22 08:00 Pulse Ox 96 05/10/22 08:00 FiO2 Intake & Output 05/09/22 05/10/22 05/10/22 18:59 06:59 18:59 Intake Total 240 118 Balance 240 118 Weight 80.9 kg 81.7 kg Intake: Oral 240 118 Other: Voiding Method Urinal Urinal # Voids 1 1 # Bowel Movements 1 - Exam GENERAL DESCRIPTION: An elderly male lying in bed in no distress RESPIRATORY SYSTEM: Unlabored breathing , decreased breath sounds at bases HEART: S1 S2 regular rate and rhythm , ABDOMEN: Soft , no tenderness EXTREMITIES: No edema feet - Labs CBC & Chem 7: 05/12/22 05:45 05/12/22 05:45 Labs: Abnormal Lab Results - Last 24 Hours (Table) 05/10/22 05/10/22 Range/Units 07:54 07:54 Hgb 12.7 L (13.0-17.5) gm/dL RDW 15.9 H (11.5-15.5) % BUN 21 H (9-20) mg/dL Glucose 105 H (74-99) mg/dL Alkaline Phosphatase 154 H (38-126) U/L Total Protein 6.1 L (6.3-8.2) g/dL Microbiology - Last 24 Hours (Table) 05/05/22 10:33 Blood Culture - Preliminary Blood No Growth after 120 hours 05/06/22 06:56 Blood Culture - Preliminary Blood No Growth after 96 hours 05/07/22 12:30 Gram Stain - Preliminary Pleural Fluid Body Fluid Culture - Preliminary 05/07/22 12:30 Anaerobic Culture - Preliminary Pleural Fluid Assessment and Plan (1) Pneumonia Current Visit: No Status: Acute Code(s): J18.9 - PNEUMONIA, UNSPECIFIED ORGANISM SNOMED Code(s): 259309715 (2) Positive blood culture Current Visit: No Status: Acute Code(s): R78.81 - BACTEREMIA SNOMED Code(s): 246981094 Plan: 1patient with a positive blood culture with bacillus species and micrococcus more likely skin contamination at the present do not have any clinical disease to go along with it and repeat blood cultures on 05/06/2020 so far negative 2patient with recurrent right-sided effusion s/p paracentesis white count was n ot significantly elevated CT chest with a question of possible loculated effusion and empyema and plan is for possible VATS procedure, scheduled for 05/11/2022 3-patient is currently being treated with Rocephin to continue while awaiting further work-up to be completed Time with Patient: Less than 30
--- NOTE | 2022-05-12 14:21 | P.PN ---
Subjective Progress Note Date: 05/11/22 Principal diagnosis: Positive blood culture question of empyema Patient is a 77-year-old male presenting to the hospital for increasing shortness of breath patient did have a recurrent right-sided pleural effusion with the recent thoracocentesis culture has been negative so far blood culture positive for gram positives likely contamination, the patient did have a CT of the chest with evidence of loculated right pleural effusion, possible VAT procedure per CT surgery. On today's evaluation that is 05/11/2022, the patient continues to befebrile, the patient is breathing comfortably on room air, the patient denies chest pain, denies any worsening shortness of breath, the pain did have occasional cough but no sputum production no abdominal pain no diarrhea Objective - Vital Signs Vital signs: Vital Signs Temp 96.8 F L 05/11/22 12:00 Pulse 81 05/11/22 08:00 Resp 18 05/11/22 12:00 BP 147/90 05/11/22 12:00 Pulse Ox 97 05/11/22 08:00 FiO2 Intake & Output 05/10/22 05/11/22 05/11/22 18:59 06:59 18:59 Intake Total 298 0 Balance 298 0 Intake: Oral 298 0 Other: Voiding Method Urinal # Voids 1 1 # Bowel Movements 1 - Exam GENERAL DESCRIPTION: An elderly male lying in bed in no distress RESPIRATORY SYSTEM: Unlabored breathing , decreased breath sounds at bases HEART: S1 S2 regular rate and rhythm , ABDOMEN: Soft , no tenderness EXTREMITIES: No edema feet - Labs CBC & Chem 7: 05/12/22 05:45 05/12/22 05:45 Labs: Microbiology - Last 24 Hours (Table) 05/05/22 10:33 Blood Culture - Final Blood No Growth after 144 hours 05/07/22 12:30 Anaerobic Culture - Final Pleural Fluid 05/06/22 06:56 Blood Culture - Preliminary Blood No Growth after 120 hours 05/07/22 12:30 Gram Stain - Final Pleural Fluid Body Fluid Culture - Final Assessment and Plan (1) Pneumonia Current Visit: No Status: Acute Code(s): J18.9 - PNEUMONIA, UNSPECIFIED ORGANISM SNOMED Code(s): 091652529 (2) Positive blood culture Current Visit: No Status: Acute Code(s): R78.81 - BACTEREMIA SNOMED Code(s): 794393340 Plan: 1patient with a positive blood culture with bacillus species and micrococcus more likely skin contamination at the present do not have any clinical disease to go along with it and repeat blood cultures on 05/06/2020 so far negative 2patient with recurrent right-sided effusion s/p paracentesis white count was not significantly elevated CT chest with a question of possible loculated effusion and empyema and plan is for possible VATS procedure, scheduled for this afternoon 3-patient to continue with Rocephin, we will follow the cultures obtained at the time of Vats procedure Time with Patient: Less than 30
--- NOTE | 2022-05-12 14:23 | P.PN ---
Subjective Progress Note Date: 05/12/22 Principal diagnosis: Positive blood culture question of empyema Patient is a 77-year-old male presenting to the hospital for increasing shortness of breath patient did have a recurrent right-sided pleural effusion with the recent thoracocentesis culture has been negative so far blood culture positive for gram positives likely contamination, the patient did have a CT of the chest with evidence of loculated right pleural effusion, Patient is status post Right anterolateral thoracotomy with partial decortication of right lung and Extensive lysis of adhesions, completed on 05/11/2022 On today's evaluation that is 05/12/2022, the patient denies any fever or any chills, the patient is breathing comfortably on nasal cannula oxygen, the patient right-sided chest pain is currently controlled, the pain did have occasional cough but no sputum production no abdominal pain no diarrhea Objective - Vital Signs Vital signs: Vital Signs Temp 98.1 F 05/12/22 12:00 Pulse 109 H 05/12/22 13:00 Resp 15 05/12/22 13:00 BP 129/96 05/12/22 13:00 Pulse Ox 92 L 05/12/22 13:00 FiO2 Intake & Output 05/11/22 05/12/22 05/12/22 18:59 06:59 18:59 Intake Total 1250 853 390 Output Total 370 491 245 Balance 880 362 145 Weight 82.4 kg 82.4 kg Intake: IV 1250 800 40 LR @75 750 40 cefTRIAXone 2 gm In 50 Sodium Chloride 0.9% 50 ml @ 100 mls/hr IVPB Q24H [facility] Rx#:[id number] Intake, IV Titration 53 Amount Ropivacaine 250 mg 53 Hydromorphone (Pf) 5 mg In Sodium Chloride 0.9% 200 ml @ Per Protocol EPIDURAL .Q0M PRN Rx#: [id number] Oral 0 350 Output: Chest Tube Drainage 126 50 Anterior Chest 2 0 Posterior Chest 124 50 Urine 270 365 195 Estimated Blood Loss 100 Other: Voiding Method Indwelling Catheter Indwelling Catheter # Voids 2 # Bowel Movements 0 ABP, PAP, CO, CI - Last Documented Arterial Blood Pressure 131/82 - Exam GENERAL DESCRIPTION: An elderly male lying in bed in no distress RESPIRATORY SYSTEM: Unlabored breathing , decreased breath sounds at bases HEART: S1 S2 regular rate and rhythm , ABDOMEN: Soft , no tenderness EXTREMITIES: No edema feet - Labs CBC & Chem 7: 05/12/22 05:45 05/12/22 05:45 Labs: Abnormal Lab Results - Last 24 Hours (Table) 05/10/22 05/11/22 05/11/22 Range/Units 07:54 17:58 18:35 RBC (4.30-5.90) m/uL Hgb (13.0-17.5) gm/dL Hct (39.0-53.0) % RDW (11.5-15.5) % Sodium (137-145) mmol/L BUN (9-20) mg/dL Glucose (74-99) mg/dL POC Glucose (mg/dL) 138 H 136 H (70-110) mg/dL Crossmatch See Detail 05/12/22 05/12/22 05/12/22 Range/Units 05:45 05:45 07:12 RBC 4.22 L (4.30-5.90) m/uL Hgb 11.3 L (13.0-17.5) gm/dL Hct 35.0 L (39.0-53.0) % RDW 15.9 H (11.5-15.5) % Sodium 135 L (137-145) mmol/L BUN 21 H (9-20) mg/dL Glucose 113 H (74-99) mg/dL POC Glucose (mg/dL) 112 H (70-110) mg/dL Crossmatch 05/12/22 Range/Units 11:30 RBC (4.30-5.90) m/uL Hgb (13.0-17.5) gm/dL Hct (39.0-53.0) % RDW (11.5-15.5) % Sodium (137-145) mmol/L BUN (9-20) mg/dL Glucose (74-99) mg/dL POC Glucose (mg/dL) 122 H (70-110) mg/dL Crossmatch Microbiology - Last 24 Hours (Table) 05/06/22 06:56 Blood Culture - Final Blood No Growth after 144 hours 05/11/22 18:22 Gram Stain - Preliminary Other - Other Tissue Culture - Preliminary 05/11/22 18:22 Anaerobic Culture - Preliminary Other - Other 05/11/22 18:22 Fungal Culture - Preliminary Other - Other 05/11/22 18:22 Acid Fast Bacilli Culture - Preliminary Other - Other 05/05/22 10:33 Blood Culture - Final Blood No Growth after 144 hours Assessment and Plan (1) Pneumonia Current Visit: No Status: Acute Code(s): J18.9 - PNEUMONIA, UNSPECIFIED ORGANISM SNOMED Code(s): 687101039 (2) Positive blood culture Current Visit: No Status: Acute Code(s): R78.81 - BACTEREMIA SNOMED Code(s): 992800894 Plan: 1patient with a positive blood culture with bacillus species and micrococcus more likely skin contamination at the present do not have any clinical disease to go along with it and repeat blood cultures on 05/06/2020 so far negative 2patient with recurrent right-sided effusion s/p paracentesis white count was not significantly elevated CT chest with a question of possible loculated effusion and empyema and patient is status post Right anterolateral thoracotomy with partial decortication of right lung and Extensive lysis of adhesions, culture has been no pain which are currently pending 3-patient to continue with Rocephin, while waiting for the cultures to finalize Time with Patient: Less than 30
[2022-05-12 16:19] LABS: Glucose,Whole Blood 119 mg/dL (70-110)
[2022-05-12] MEDS ORDERED: VANCOMYCIN IV PER PHARMACY 1 EACH MISC MISCELLANE PRN (19:12)
[2022-05-12 20:14] LABS: Glucose,Whole Blood 135 mg/dL (70-110)
[2022-05-12] MEDS: ATORVASTATIN 20 MG TAB PO SCH (20:51)
[2022-05-12] MEDS: VANCOMYCIN 1,500 MG in SODIUM CHLORIDE 0.9% 500 ML 500 ML IVPB SCH (20:51)
[2022-05-12] MEDS: TAMSULOSIN 0.4 MG CAP.ER.24H PO SCH (20:51)
[2022-05-13] MEDS: ROPIVACAINE 250 MG, HYDROMORPHONE (PF) 5 MG in SODIUM CHLORIDE 0.9% 200 ML EPIDURAL PRN (01:48)
--- NOTE | 2022-05-13 06:25 | XR ---
EXAMINATION TYPE: XR chest 1V portable DATE OF EXAM: 05/13/2022 CLINICAL HISTORY: Difficulty breathing progress study. Postoperative right thoracotomy. TECHNIQUE: Single AP portable semiupright view of the chest is obtained. COMPARISON: Chest x-ray from one day earlier and older studies. FINDINGS: Stable 2 right-sided chest tubes. Persistent small right pleural fluid collection laterall y. Persistent small air collection right lateral lung base. No new mediastinal shift. Persistent righ t midlung linear scarring and/or atelectasis. Patchy left basilar opacity remain present. Cardiac farshad houette size stable and within normal limits. Surgical change to left shoulder partially imaged. IMPRESSION: Persistent posttreatment change to the right lung with lateral basilar residual cavity an d 2 right-sided chest tubes in place. Persistent left greater than right bibasilar acute infiltrates and/or atelectasis and right midlung linear scarring and/or atelectasis. Some improved aeration right lung base noted from one day earlier.
[2022-05-13] MEDS: PANTOPRAZOLE 40 MG TABLET PO SCH (06:31)
[2022-05-13] MEDS: ALPRAZolam 0.25 MG TAB PO PRN ×3 (06:33→20:15)
[2022-05-13 06:35] LABS: Glucose,Whole Blood 137 mg/dL (70-110)
[2022-05-13 06:41] LABS: HCT 32.8 % (39.0-53.0); HGB 10.3 gm/dL (13.0-17.5); Hypochromasia Moderate; MCH 26.6 pg (25.0-35.0); MCHC 31.4 g/dL (31.0-37.0); MCV 84.7 fL (80.0-100.0); Mean Platelet Volume 9.3; Platelet Count 228 k/uL (150-450); RBC 3.87 m/uL (4.30-5.90); RDW 15.7 % (11.5-15.5); WBC 10.4 k/uL (3.8-10.6)
[2022-05-13 06:56] LABS: Albumin 2.9 g/dL (3.5-5.0); Calcium 8.7 mg/dL (8.4-10.2); Potassium 4.7 mmol/L (3.5-5.1); Total Bilirubin 0.8 mg/dL (0.2-1.3)
[2022-05-13 07:19] LABS: Band Neutrophils % 4 %; Lymphocytes # (M) 1.87 k/uL (1.0-4.8); Metamyelocytes % 1 %; Monocytes # (M) 1.25 k/uL (0-1.0); Neutrophils % (M) 66 %; Nucleated Red Blood Cells 0 /100 WBC (0-0); Total Cells Counted 200
[2022-05-13] MEDS: IPRATROPIUM-ALBUTEROL 3 ML NEB IH SCH ×4 (07:47→19:53)
[2022-05-13] MEDS: TIOTROPIUM 2.5 MCG INHALER INHALATION SCH (07:47)
[2022-05-13] MEDS: SYMBICORT 80-4.5 MCG INHALER INHALATION SCH ×2 (07:47→19:53)
--- NOTE | 2022-05-13 08:24 | P.PN ---
Subjective Progress Note Date: 05/13/22 Principal diagnosis: Chronic right-sided empyema with trapped lung, status post thoracentesis 4, cytology negative for malignancy, shortness of breath. Past medical history significant for asbestos exposure, rheumatoid arthritis, paroxysmal atrial fibrillation, pulmonary embolism on Eliquis for anticoagulation, mild mitral and mild tricuspid regurgitation with normal left ventricular systolic function, recent history of melanoma skin cancer status post resection in December 2021, type 2 diabetes, previous tobacco dependence, COPD. POD #2 bronchoscopy, right anterolateral thoracotomy with partial decortication of right lung, extensive lysis of adhesions. The patient was seen and examined in follow-up today 05/13/2022 at his bedside in the intensive care unit. He is currently sitting up to the bedside chair, is awake, alert, oriented 3 and is in no acute distress. He is tolerating his breakfast and denies any complaints of nausea or vomiting. Denies any complaints of shortness of breath although is complaining of some surgical type pain to his chest tube insertion sites rating his pain 6 out of 10 on the pain scale. Epidural remains in place and is being managed by anesthesia which is infusing at 8 mL/h. Epidural site is clean, dry and intact. Oxygen saturations are 95% on 2 L nasal cannula and he is achieving 1500 mL on his incentive spirometry with encouragement. Bedside telemetry is showing normal sinus rhythm heart rate 96 BPM. Right pleural anterior and posterior chest tubes remain in place to water seal. Intermittent air leak is present to his anterior right pleural chest tube with coughing and no airleak noted to his right pleural posterior chest tube. Anterior pleural chest tube draining thin serosanguineous drainage with 5 mL output in the last 24 hours and his posterior chest tube had 190 mL of output of thin serosanguineous drainage in the last 24 hours. He ambulated out of bed to the chair without difficulty and standby assistance from nursing staff. Guerra catheter remains in place for accurate I's and O's and will be discontinued once his epidural has been removed. He remained hemodynamically stable and is currently on no inotropic pressure support. Rocephin remains in place for antibiotic coverage managed by infectious disease. Pleural rind pathology results remain pending. Objective - Vital Signs Vital signs: Vital Signs Temp 98.1 F 05/13/22 04:00 Pulse 102 H 05/13/22 07:58 Resp 31 H 05/13/22 07:30 BP 120/78 05/13/22 07:30 Pulse Ox 93 L 05/13/22 07:30 FiO2 Intake & Output 05/12/22 05/13/22 05/13/22 18:59 06:59 18:59 Intake Total 890 1190 40 Output Total 575 303 27 Balance 315 887 13 Weight 82.4 kg 90 kg Intake: IV 240 1030 40 LR @75 240 480 40 Vancomycin 1,500 mg In 500 Sodium Chloride 0.9% 500 ml 500 ml @ 167 mls/hr IVPB Q12H [facility] Rx#: [id number] cefTRIAXone 2 gm In 50 Sodium Chloride 0.9% 50 ml @ 100 mls/hr IVPB Q24H [facility] Rx#:[id number] Intake, IV Titration 160 Amount Ropivacaine 250 mg 160 Hydromorphone (Pf) 5 mg In Sodium Chloride 0.9% 200 ml @ Per Protocol EPIDURAL .Q0M PRN Rx#: [id number] Oral 650 Output: Chest Tube Drainage 140 51 Anterior Chest 0 1 Posterior Chest 140 50 Urine 435 252 27 Other: Voiding Method Indwelling Catheter Indwelling Catheter # Bowel Movements 0 0 ABP, PAP, CO, CI - Last Documented Arterial Blood Pressure 131/82 - Exam CONSTITUTIONAL: Appears comfortable, cooperative, no acute distress. Sitting up to the bedside chair in the intensive care unit. RESPIRATORY: Lungs sounds diminished bilaterally, right greater than left. Few scattered crackles to his left lower lobe. Respirations are symmetrical, nonlabored. Currently on 2 L nasal cannula with oxygen saturation 95%. Able to achieve 1500 mL on his incentive spirometry. Strong cough. CARDIOVASCULAR: S1, S2 present. Regular rate and rhythm, sinus rhythm on telem etry with heart rate of 96 BPM. Palpable peripheral pulses bilaterally. No edema present. No calf pain or tenderness noted. Sequential compression devices in place to his bilateral lower extremities. GASTROINTESTINAL: Abdomen soft, nontender, nondistended. Active bowel sounds present 4 quadrants. Tolerating minimal diet. GENITOURINARY: Guerra catheter in place for accurate I's and O's. INTEGUMENTARY: Skin is warm and dry, no clubbing or cyanosis is present. Dressings to his right thoracotomy incision and chest tube insertion sites are clean, dry and intact. No drainage or redness is present. NEUROLOGIC: Cranial nerves II through XII intact. Epidural site clean, dry and intact. MUSKULOSKELETAL: Able to move all extremities, strength equal bilaterally, gait normal. PSYCHIATRIC: Alert and oriented to person place and time, appropriate affect, intact judgment and insight INVASIVE LINES AND TUBES: Right anterior and posterior pleural chest tubes remain in place to low continuous wall suction -20 cm H2O. Intermittent air leak present to his right anterior pleural chest tube with coughing and no air leak present to the right posterior pleural chest tube. Draining thin serosanguineous drainage. - Allied health notes Allied health notes reviewed: nursing - Labs CBC & Chem 7: 05/13/22 06:12 05/13/22 06:12 Labs: Abnormal Lab Results - Last 24 Hours (Table) 05/10/22 05/12/22 05/12/22 Range/Units 07:54 11:30 16:17 RBC (4.30-5.90) m/uL Hgb (13.0-17.5) gm/dL Hct (39.0-53.0) % RDW (11.5-15.5) % Monocytes # (Manual) (0-1.0) k/uL Metamyelocytes # (Man) (0) k/uL Sodium (137-145) mmol/L BUN (9-20) mg/dL Glucose (74-99) mg/dL POC Glucose (mg/dL) 122 H 119 H (70-110) mg/dL Alkaline Phosphatase (38-126) U/L Total Protein (6.3-8.2) g/dL Albumin (3.5-5.0) g/dL Crossmatch See Detail 05/12/22 05/13/22 05/13/22 Range/Units 20:13 06:12 06:12 RBC 3.87 L (4.30-5.90) m/uL Hgb 10.3 L (13.0-17.5) gm/dL Hct 32.8 L (39.0-53.0) % RDW 15.7 H (11.5-15.5) % Monocytes # (Manual) 1.25 H (0-1.0) k/uL Metamyelocytes # (Man) 0.10 H (0) k/uL Sodium 135 L (137-145) mmol/L BUN 28 H (9-20) mg/dL Glucose 143 H (74-99) mg/dL POC Glucose (mg/dL) 135 H (70-110) mg/dL Alkaline Phosphatase 127 H (38-126) U/L Total Protein 5.0 L (6.3-8.2) g/dL Albumin 2.9 L (3.5-5.0) g/dL Crossmatch 05/13/22 Range/Units 06:34 RBC (4.30-5.90) m/uL Hgb (13.0-17.5) gm/dL Hct (39.0-53.0) % RDW (11.5-15.5) % Monocytes # (Manual) (0-1.0) k/uL Metamyelocytes # (Man) (0) k/uL Sodium (137-145) mmol/L BUN (9-20) mg/dL Glucose (74-99) mg/dL POC Glucose (mg/dL) 137 H (70-110) mg/dL Alkaline Phosphatase (38-126) U/L Total Protein (6.3-8.2) g/dL Albumin (3.5-5.0) g/dL Crossmatch Microbiology - Last 24 Hours (Table) 05/11/22 18:22 Gram Stain - Preliminary Other - Other Tissue Culture - Preliminary 05/11/22 18:22 Acid Fast Bacilli Smear - Final Other - Other Acid Fast Bacilli Culture - Preliminary 05/06/22 06:56 Blood Culture - Final Blood No Growth after 144 hours - Imaging and Cardiology Chest x-ray: report reviewed, image reviewed Assessment and Plan Assessment: 1. Chronic right-sided empyema with trapped lung, status post thoracentesis 4, pathology negative for malignancy, status post right anterolateral thoracotomy with partial decortication of right lung and extensive lysis of adhesions 2. Shortness of breath secondary to above 3. Positive blood culture for Micrococcus species, on Rocephin for antibiotic coverage managed by infectious disease. 4. History of asbestos exposure 5. Rheumatoid arthritis 6. Paroxysmal atrial fibrillation, history of pulmonary embolism, on Eliquis for anticoagulation as an outpatient, currently sinus rhythm 7. Mild mitral and mild tricuspid valve regurgitation with normal left ventricular systolic function, being monitored outpatient 8. Recent history of melanoma skin cancer status post resection in December 2021 9. Type 2 diabetes 10. Previous tobacco dependence 11. COPD Plan: 1. Keep right pleural chest tubes to water seal. Continue to monitor for airleak resolution. 2. Wean oxygen as tolerated. Encourage use of incentive spirometry 10 times every hour while awake. 3. Out of bed for all meals, increase activity as tolerated. 4. Epidural management per anesthesia recommendations. Keep Guerra catheter in place and record strict and accurate I's and O's until epidural has been removed. 5. Pain control per when necessary orders. 6. Pathology and culture results remain pending. Continue to follow culture and pathology results. 7. Continue to follow labs and daily chest x-rays. 8. Pulmonary management recommendations and bronchodilators per pulmonary/critical care medicine. 9. Physical and occupational therapy following. 10. GI and DVT prophylaxis. 11. Continue to hold Eliquis. 12. Medical management other comorbidities per primary care service. 13. Antibiotic management per infectious disease recommendations. Positive blood culture on 05/05/2022 for Micrococcus species. 14. More recommendations to follow based on patient's clinical course. Time with Patient: Greater than 30
[2022-05-13] MEDS: HEPARIN SODIUM,PORCINE/PF 5,000 UNIT/0.5 ML SYRINGE SQ SCH ×2 (08:45→20:15)
[2022-05-13] MEDS: VANCOMYCIN 1,500 MG in SODIUM CHLORIDE 0.9% 500 ML 500 ML IVPB SCH ×2 (08:45→20:15)
[2022-05-13] MEDS: CHOLECALCIFEROL 25 MCG (1000 IU) TABLET PO SCH (08:45)
[2022-05-13] MEDS: METOPROLOL TARTRATE 25 MG TAB PO SCH ×2 (08:46→20:15)
[2022-05-13] MEDS: LEFLUNOMIDE 20 MG TAB PO SCH (08:46)
--- NOTE | 2022-05-13 09:44 | P.PN ---
Subjective Progress Note Date: 05/13/22 Last night patient became tachycardic and febrile. I added vancomycin and also obtained blood cultures. This morning patient is afebrile. He states that he is feeling much better today compared to yesterday. He was sitting in the chair. Patient states that his main issue is that when he ambulates he become short of breath. Objective - Vital Signs Vital signs: Vital Signs Temp 98.1 F 05/13/22 04:00 Pulse 102 H 05/13/22 07:58 Resp 31 H 05/13/22 07:30 BP 120/78 05/13/22 07:30 Pulse Ox 93 L 05/13/22 07:30 FiO2 Intake & Output 05/12/22 05/13/22 05/13/22 18:59 06:59 18:59 Intake Total 890 1190 40 Output Total 575 303 27 Balance 315 887 13 Weight 82.4 kg 90 kg Intake: IV 240 1030 40 LR @75 240 480 40 Vancomycin 1,500 mg In 500 Sodium Chloride 0.9% 500 ml 500 ml @ 167 mls/hr IVPB Q12H [facility] Rx#: [id number] cefTRIAXone 2 gm In 50 Sodium Chloride 0.9% 50 ml @ 100 mls/hr IVPB Q24H [facility] Rx#:[id number] Intake, IV Titration 160 Amount Ropivacaine 250 mg 160 Hydromorphone (Pf) 5 mg In Sodium Chloride 0.9% 200 ml @ Per Protocol EPIDURAL .Q0M PRN Rx#: [id number] Oral 650 Output: Chest Tube Drainage 140 51 Anterior Chest 0 1 Posterior Chest 140 50 Urine 435 252 27 Other: Voiding Method Indwelling Catheter Indwelling Catheter # Bowel Movements 0 0 ABP, PAP, CO, CI - Last Documented Arterial Blood Pressure 131/82 - Exam General examination - Alert and Oriented 3 in NAD, appears chronically debilitated Heart - + S1S2 no murmurs Lungs - diminished breath sounds bilaterally, 2 chest tubes in the right chest Abdomen soft NT ND +ve BS Extremities - No edema [employer] - Moving all 4 extremities spontaneously Psych - Calm and cooperative - Labs CBC & Chem 7: 05/13/22 06:12 05/13/22 06:12 Labs: Abnormal Lab Results - Last 24 Hours (Table) 05/10/22 05/12/22 05/12/22 Range/Units 07:54 11:30 16:17 RBC (4.30-5.90) m/uL Hgb (13.0-17.5) gm/dL Hct (39.0-53.0) % RDW (11.5-15.5) % Monocytes # (Manual) (0-1.0) k/uL Metamyelocytes # (Man) (0) k/uL Sodium (137-145) mmol/L BUN (9-20) mg/dL Glucose (74-99) mg/dL POC Glucose (mg/dL) 122 H 119 H (70-110) mg/dL Alkaline Phosphatase (38-126) U/L Total Protein (6.3-8.2) g/dL Albumin (3.5-5.0) g/dL Crossmatch See Detail 05/12/22 05/13/22 05/13/22 Range/Units 20:13 06:12 06:12 RBC 3.87 L (4.30-5.90) m/uL Hgb 10.3 L (13.0-17.5) gm/dL Hct 32.8 L (39.0-53.0) % RDW 15.7 H (11.5-15.5) % Monocytes # (Manual) 1.25 H (0-1.0) k/uL Metamyelocytes # (Man) 0.10 H (0) k/uL Sodium 135 L (137-145) mmol/L BUN 28 H (9-20) mg/dL Glucose 143 H (74-99) mg/dL POC Glucose (mg/dL) 135 H (70-110) mg/dL Alkaline Phosphatase 127 H (38-126) U/L Total Protein 5.0 L (6.3-8.2) g/dL Albumin 2.9 L (3.5-5.0) g/dL Crossmatch 05/13/22 Range/Units 06:34 RBC (4.30-5.90) m/uL Hgb (13.0-17.5) gm/dL Hct (39.0-53.0) % RDW (11.5-15.5) % Monocytes # (Manual) (0-1.0) k/uL Metamyelocytes # (Man) (0) k/uL Sodium (137-145) mmol/L BUN (9-20) mg/dL Glucose (74-99) mg/dL POC Glucose (mg/dL) 137 H (70-110) mg/dL Alkaline Phosphatase (38-126) U/L Total Protein (6.3-8.2) g/dL Albumin (3.5-5.0) g/dL Crossmatch Microbiology - Last 24 Hours (Table) 05/11/22 18:22 Gram Stain - Preliminary Other - Other Tissue Culture - Preliminary 05/11/22 18:22 Acid Fast Bacilli Smear - Final Other - Other Acid Fast Bacilli Culture - Preliminary 05/06/22 06:56 Blood Culture - Final Blood No Growth after 144 hours Assessment and Plan Assessment: #Recurrent right-sided pleural effusion; differential includes malignancy versus empyema #Dyspnea secondary to the above #Fever with tachycardia on 05/12/2022 Patient has had multiple thoracenteses in the past with negative cultures and cy tology On 05/11/2022 patient had VATS procedure with partial decortication Follow up on culture results from the VATS procedure CT surgery to manage chest tubes Pulmonology on board Infectious disease empirically started patient on IV Rocephin. I added vancomycin since patient was having fevers last night Follow up on blood cultures done on 05/12/2022 Hold Eliquis until cleared by CT surgery #Depression Resume Remeron #Positive blood culture Likely contaminant Blood cultures from 05/06 are negative #Chest pain ACS ruled out. Echocardiogram from 10/2021 shows EF 50-55% with mild concentric LVH. Patient will be continued on Lipitor and Metoprolol. Telemetry monitoring. Cardiology recommends no further workup. #Abnormal urinalysis Urine culture is negative. Chronic condition: Rheumatoid arthritis, diabetes mellitus Resume home meds DVT prophylaxis: [Hold anticoagulation until cleared by CT surgery] Anticipated discharge: [We'll discharge patient once cleared by CT surgery and pulmonology]
[2022-05-13 11:27] LABS: Glucose,Whole Blood 147 mg/dL (70-110)
--- NOTE | 2022-05-13 16:13 | P.PN ---
Progress Note - Text Date: 05/13/2022 Time: 13:01 The patient is status post[, right thoracotomy,] postoperative day number2. The patient has no complaints of nausea vomiting or headache. The patient does not complain of any lower extremity numbness or weakness. The epidural is running at 6 mL per hour. VAS 1-2-10. The epidural will be maintained and adj usted as needed.
[2022-05-13 16:19] LABS: Glucose,Whole Blood 190 mg/dL (70-110)
[2022-05-13] MEDS: PIPERACILLIN-TAZOBACTAM 3.375 GM in SODIUM CHLORIDE 0.9% 100 ML IVPB SCH ×2 (16:29→23:28)
[2022-05-13 20:04] LABS: Glucose,Whole Blood 224 mg/dL (70-110)
[2022-05-13] MEDS: ATORVASTATIN 20 MG TAB PO SCH (20:15)
[2022-05-13] MEDS: TAMSULOSIN 0.4 MG CAP.ER.24H PO SCH (20:15)
--- NOTE | 2022-05-13 23:51 | P.PN ---
Subjective Progress Note Date: 05/13/22 Principal diagnosis: Positive blood culture question of empyema Patient is a 77-year-old male presenting to the hospital for increasing shortness of breath patient did have a recurrent right-sided pleural effusion with the recent thoracocentesis culture has been negative so far blood culture positive for gram positives likely contamination, the patient did have a CT of the chest with evidence of loculated right pleural effusion, Patient is status post Right anterolateral thoracotomy with partial decortication of right lung and Extensive lysis of adhesions, completed on 05/11/2022 On today's evaluation that is 05/13/2022, the patient did spike a fever of 103 .3F last evening, the patient is breathing comfortably on nasal cannula oxygen, still complaining of shortness of breath on minimal exertion, the patient right-sided chest pain is currently controlled, the pain did have occasional cough but no sputum production no abdominal pain no diarrhea Objective - Vital Signs Vital signs: Vital Signs Temp 98.9 F 05/13/22 11:30 Pulse 117 H 05/13/22 13:00 Resp 26 H 05/13/22 13:00 BP 120/73 05/13/22 13:00 Pulse Ox 96 05/13/22 13:00 FiO2 Intake & Output 05/12/22 05/13/22 05/13/22 18:59 06:59 18:59 Intake Total 890 1190 1380 Output Total 575 303 267 Balance 953 220 6363 Weight 82.4 kg 90 kg Intake: IV 240 1030 540 LR @75 240 480 40 Vancomycin 1,500 mg In 500 500 Sodium Chloride 0.9% 500 ml 500 ml @ 167 mls/hr IVPB Q12H [facility] Rx#: [id number] cefTRIAXone 2 gm In 50 Sodium Chloride 0.9% 50 ml @ 100 mls/hr IVPB Q24H [facility] Rx#:[id number] Intake, IV Titration 160 Amount Ropivacaine 250 mg 160 Hydromorphone (Pf) 5 mg In Sodium Chloride 0.9% 200 ml @ Per Protocol EPIDURAL .Q0M PRN Rx#: [id number] Oral 650 840 Output: Chest Tube Drainage 140 51 Anterior Chest 0 1 Posterior Chest 140 50 Urine 435 252 267 Other: Voiding Method Indwelling Catheter Indwelling Catheter Indwelling Catheter # Bowel Movements 0 0 ABP, PAP, CO, CI - Last Documented Arterial Blood Pressure 131/82 - Exam GENERAL DESCRIPTION: An elderly male lying in bed in no distress RESPIRATORY SYSTEM: Unlabored breathing , decreased breath sounds at bases HEART: S1 S2 regular rate and rhythm , ABDOMEN: Soft , no tenderness EXTREMITIES: No edema feet - Labs CBC & Chem 7: 05/13/22 06:12 05/13/22 06:12 Labs: Abnormal Lab Results - Last 24 Hours (Table) 05/10/22 05/12/22 05/12/22 Range/Units 07:54 16:17 20:13 RBC (4.30-5.90) m/uL Hgb (13.0-17.5) gm/dL Hct (39.0-53.0) % RDW (11.5-15.5) % Monocytes # (Manual) (0-1.0) k/uL Metamyelocytes # (Man) (0) k/uL Sodium (137-145) mmol/L BUN (9-20) mg/dL Glucose (74-99) mg/dL POC Glucose (mg/dL) 119 H 135 H (70-110) mg/dL Alkaline Phosphatase (38-126) U/L Total Protein (6.3-8.2) g/dL Albumin (3.5-5.0) g/dL Crossmatch See Detail 05/13/22 05/13/22 05/13/22 Range/Units 06:12 06:12 06:34 RBC 3.87 L (4.30-5.90) m/uL Hgb 10.3 L (13.0-17.5) gm/dL Hct 32.8 L (39.0-53.0) % RDW 15.7 H (11.5-15.5) % Monocytes # (Manual) 1.25 H (0-1.0) k/uL Metamyelocytes # (Man) 0.10 H (0) k/uL Sodium 135 L (137-145) mmol/L BUN 28 H (9-20) mg/dL Glucose 143 H (74-99) mg/dL POC Glucose (mg/dL) 137 H (70-110) mg/dL Alkaline Phosphatase 127 H (38-126) U/L Total Protein 5.0 L (6.3-8.2) g/dL Albumin 2.9 L (3.5-5.0) g/dL Crossmatch 05/13/22 Range/Units 11:26 RBC (4.30-5.90) m/uL Hgb (13.0-17.5) gm/dL Hct (39.0-53.0) % RDW (11.5-15.5) % Monocytes # (Manual) (0-1.0) k/uL Metamyelocytes # (Man) (0) k/uL Sodium (137-145) mmol/L BUN (9-20) mg/dL Glucose (74-99) mg/dL POC Glucose (mg/dL) 147 H (70-110) mg/dL Alkaline Phosphatase (38-126) U/L Total Protein (6.3-8.2) g/dL Albumin (3.5-5.0) g/dL Crossmatch Microbiology - Last 24 Hours (Table) 05/11/22 18:22 Gram Stain - Preliminary Other - Other Tissue Culture - Preliminary 05/11/22 18:22 Acid Fast Bacilli Smear - Final Other - Other Acid Fast Bacilli Culture - Preliminary Assessment and Plan (1) Pneumonia Current Visit: No Status: Acute Code(s): J18.9 - PNEUMONIA, UNSPECIFIED ORGANISM SNOMED Code(s): 978879741 (2) Positive blood culture Current Visit: No Status: Acute Code(s): R78.81 - BACTEREMIA SNOMED Code(s): 044414591 Plan: 1patient with a positive blood culture with bacillus species and micrococcus more likely skin contamination at the present do not have any clinical disease to go along with it and repeat blood cultures on 05/06/2020 so far negative 2patient with recurrent right-sided effusion s/p paracentesis white count was not significantly elevated CT chest with a question of possible loculated effusion and empyema and patient is status post Right anterolateral thoracotomy with partial decortication of right lung and Extensive lysis of adhesions, culture has been no pain which are currently pending 3-patient with a new fever blood cultures obtained which are currently pending we will switch antibiotic therapy to Zosyn while waiting for the culture finalized Time with Patient: Less than 30
[2022-05-14 06:44] LABS: Glucose,Whole Blood 138 mg/dL (70-110)
[2022-05-14] MEDS: PANTOPRAZOLE 40 MG TABLET PO SCH (06:44)
[2022-05-14] MEDS: ALPRAZolam 0.25 MG TAB PO PRN ×3 (06:51→21:06)
[2022-05-14] MEDS ORDERED: MAGNESIUM HYDROXIDE 2,400 MG/10 ML CUP PO PRN (07:04)
[2022-05-14 07:07] LABS: HCT 30.7 % (39.0-53.0); HGB 9.7 gm/dL (13.0-17.5); Hypochromasia Slight; MCH 26.6 pg (25.0-35.0); MCHC 31.8 g/dL (31.0-37.0); MCV 83.6 fL (80.0-100.0); Mean Platelet Volume 9.2; Platelet Count 219 k/uL (150-450); RBC 3.67 m/uL (4.30-5.90); RDW 15.8 % (11.5-15.5); WBC 6.3 k/uL (3.8-10.6)
--- NOTE | 2022-05-14 07:17 | XR ---
EXAMINATION TYPE: XR chest 1V portable DATE OF EXAM: 05/14/2022 6:05 AM COMPARISON: Chest radiographs from 05/13/2022 small right pleural effusion. CT chest 05/08/2022. TECHNIQUE: XR chest 1V portable Portable AP radiograph of the chest. CLINICAL INDICATION:Male, 77 years old with history of Postoperative right thoracotomy; FINDINGS: Lungs/Pleura: There is no evidence of focal consolidation, or pneumothorax. Surgical clips project o demetrius the left lung apex. There are suspected right pleural effusion. Streaky opacities are unchanged. Pulmonary vascularity: Unremarkable. Heart/mediastinum: Cardiomediastinal silhouette is unremarkable. Musculoskeletal: Right-sided fractures are present. Reverse left shoulder arthroplasty. Hardware is i ntact. Other findings: Subcutaneous emphysema around the right chest wall. Lines/Tubes: Right thoracotomy tubes are present without evidence of pneumothorax. IMPRESSION: 1. Right thoracotomy tubes without evidence for pneumothorax. 2. Right suspected hemoperitoneum with associated rib fractures layering along the lateral wall. 3. Small right pleural effusion
[2022-05-14 07:23] LABS: ALT 13 U/L (4-49); AST 36 U/L (17-59); African American GFR (CKD) >90 (>60 ml/min/1.73 sqM); Albumin 2.7 g/dL (3.5-5.0); Alkaline Phosphatase 110 U/L (38-126); Anion Gap 7 mmol/L; Blood Urea Nitrogen 21 mg/dL (9-20); Calcium 8.7 mg/dL (8.4-10.2); Carbon Dioxide 26 mmol/L (22-30); Chloride 101 mmol/L (98-107); Glucose 118 mg/dL (74-99); Non-African American GFR(CKD) >90 (>60 ml/min/1.73 sqM); Potassium 4.1 mmol/L (3.5-5.1); Sodium 134 mmol/L (137-145); Total Bilirubin 0.6 mg/dL (0.2-1.3); Total Protein 4.8 g/dL (6.3-8.2)
[2022-05-14 07:52] LABS: Lymphocytes # (M) 1.01 k/uL (1.0-4.8); Monocytes # (M) 0.63 k/uL (0-1.0); Neutrophils # (M) 4.66 k/uL (1.3-7.7); Neutrophils % (M) 74 %; Nucleated Red Blood Cells 0 /100 WBC (0-0); Total Cells Counted 100
--- NOTE | 2022-05-14 07:59 | P.PN ---
Subjective Progress Note Date: 05/14/22 Principal diagnosis: Chronic right-sided empyema with trapped lung, status post thoracentesis 4, pathology negative for malignancy, shortness of breath. History of asbestos exposure, rheumatoid arthritis, paroxysmal atrial fibrillation, pulmonary embolism on Eliquis for anticoagulation, mild mitral and mild tricuspid regurgitation with normal left ventricular systolic function, recent history of melanoma skin cancer status post resection in December 2021, type 2 diabetes, previ ous tobacco dependence, COPD POD #3 bronchoscopy, right anterolateral thoracotomy with partial decortication of the right lung, extensive lysis of adhesions The patient was seen and examined this morning sitting up in a recliner in the intensive care unit in no acute distress. States pain is controlled with epidural, denies shortness of breath, complains of frequent dry cough. Remains in sinus tach with heart rate in the low 100s, hemodynamically stable on no inotropes or pressors. Remains on IV Vanco and Zosyn per infectious disease, tissue culture preliminary negative to date, pathology pending. Anterior and posterior right-sided chest tubes present to waterseal, no air leak present. Patient does complain of some weakness but he has been able to ambulate in his room without assistance. Currently on room air with oxygen saturation 100% and able to achieve 1500 mL on his incentive spirometry. No other new concerns at this time. Objective - Vital Signs Vital signs: Vital Signs Temp 98.7 F 05/14/22 04:00 Pulse 110 H 05/14/22 07:00 Resp 22 05/14/22 07:00 BP 115/64 05/14/22 07:00 Pulse Ox 97 05/14/22 07:00 FiO2 Intake & Output 05/13/22 05/14/22 05/14/22 18:59 06:59 18:59 Intake Total 1840 550 Output Total 517 978 Balance 1323 -428 Weight 89.3 kg Intake: IV 540 550 LR @75 40 Vancomycin 1,500 mg In 500 500 Sodium Chloride 0.9% 500 ml 500 ml @ 167 mls/hr IVPB Q12H [facility] Rx#: [id number] cefTRIAXone 2 gm In 50 Sodium Chloride 0.9% 50 ml @ 100 mls/hr IVPB Q24H [facility] Rx#:[id number] Intake, IV Titration 100 Amount Piperacillin-Tazobactam 3 100 .375 gm In Sodium Chloride 0.9% 100 ml @ 25 mls/hr IVPB Q8HR [facility] Rx# :[id number] Oral 1200 Output: Chest Tube Drainage 45 78 Anterior Chest 5 54 Posterior Chest 40 24 Urine 472 900 Other: Voiding Method Indwelling Catheter Indwelling Catheter # Bowel Movements 0 0 ABP, PAP, CO, CI - Last Documented Arterial Blood Pressure 131/82 - Exam CONSTITUTIONAL: Appears comfortable, cooperative, no acute distress RESPIRATORY: Lungs sounds diminished right base. Respirations even, nonlabored. Currently on room air with oxygen saturation 100%. Able to achieve 1500 mL on incentive spirometry. Strong nonproductive cough. CARDIOVASCULAR: S1, S2 present. Tachycardic but regular rate and rhythm, sinus tach on telemetry. Palpable peripheral pulses bilaterally. No edema present. No calf pain or tenderness noted. SCDs present. GASTROINTESTINAL: Abdomen soft, nontender, nondistended. Active bowel sounds present 4 quadrants. Tolerating diet. Positive flatus, negative bowel movement since surgery GENITOURINARY: Plasencia present draining clear, yellow urine. Output 40-125 mL per hour overnight, 1272 mL in the last 24 hours INTEGUMENTARY: Skin is warm and dry. Thoracic incision well approximated and covered with dry intact dressing. NEUROLOGIC: Cranial nerves II through XII intact MUSKULOSKELETAL: Able to move all extremities, strength equal bilaterally, gait normal PSYCHIATRIC: Alert and oriented to person place and time, appropriate affect, intact judgment and insight INVASIVE LINES AND TUBES: Right anterior pleural chest tubes present to waterseal, minimal air leaks present with suction applied, 50 mL serosanguineous drainage overnight, 60 mL in the last 24 hours. Right posterior pleural chest tube present to waterseal, no air leak present, 25 mL serosanguineous drainage overnight, 64 mL in the last 24 hours. - Allied health notes Allied health notes reviewed: nursing - Labs CBC & Chem 7: 05/14/22 06:47 05/14/22 06:47 Labs: Abnormal Lab Results - Last 24 Hours (Table) 05/13/22 05/13/22 05/13/22 Range/Units 11:26 16:18 20:03 RBC (4.30-5.90) m/uL Hgb (13.0-17.5) gm/dL Hct (39.0-53.0) % RDW (11.5-15.5) % Sodium (137-145) mmol/L BUN (9-20) mg/dL Glucose (74-99) mg/dL POC Glucose (mg/dL) 147 H 190 H 224 H (70-110) mg/dL Total Protein (6.3-8.2) g/dL Albumin (3.5-5.0) g/dL 05/14/22 05/14/22 05/14/22 Range/Units 06:43 06:47 06:47 RBC 3.67 L (4.30-5.90) m/uL Hgb 9.7 L (13.0-17.5) gm/dL Hct 30.7 L (39.0-53.0) % RDW 15.8 H (11.5-15.5) % Sodium 134 L (137-145) mmol/L BUN 21 H (9-20) mg/dL Glucose 118 H (74-99) mg/dL POC Glucose (mg/dL) 138 H (70-110) mg/dL Total Protein 4.8 L (6.3-8.2) g/dL Albumin 2.7 L (3.5-5.0) g/dL Microbiology - Last 24 Hours (Table) 05/12/22 19:46 Blood Culture - Preliminary Blood No Growth after 24 hours 05/11/22 18:22 Gram Stain - Preliminary Other - Other Tissue Culture - Preliminary - Imaging and Cardiology Chest x-ray: report reviewed, image reviewed Assessment and Plan Assessment: 1. Chronic right-sided empyema with trapped lung, status post thoracentesis 4, pathology negative for malignancy, status post bronchoscopy, right anterolateral thoracotomy with partial decortication of the right lung, extensive lysis of adh esions 2. Shortness of breath secondary to above 3. Positive blood cultures for micrococcus species 4. History of asbestos exposure 5. Rheumatoid arthritis 6. Paroxysmal atrial fibrillation, history of pulmonary embolism, on Eliquis for anticoagulation, currently sinus rhythm 7. Mild mitral and mild tricuspid regurgitation with normal left ventricular systolic function, being monitored outpatient 8. Recent history of melanoma skin cancer status post resection in December 2021 9. Type 2 diabetes 10. Previous tobacco dependence 11. COPD Plan: 1. Keep right posterior pleural chest tubes to water seal, will discontinue anterior chest tube 2. Antibiotic management per infectious disease recommendations 3. Encourage incentive spirometry use 10 times every hour while awake 4. Increase activity as tolerated, out of bed for all meals 5. Epidural discontinued this morning by anesthesia, oral pain meds ordered with IV dilaudid for breakthrough pain 6. Pathology and culture results remain pending. Continue to follow culture and pathology results. 7. Will monitor daily labs and x-rays 8. GI/DVT prophylaxis, continue to hold liquids until chest tube removal 9. Discontinue plasencia catheter, may bladder scan and straight cath for >300 mL residual 10. Management of other comorbidities per primary care, pulmonology, cardiology 11. May be transferred out of ICU from our standpoint 12. More recommendations to follow
[2022-05-14] MEDS: SYMBICORT 80-4.5 MCG INHALER INHALATION SCH ×2 (08:15→19:29)
[2022-05-14] MEDS: IPRATROPIUM-ALBUTEROL 3 ML NEB IH SCH ×4 (08:15→19:29)
[2022-05-14] MEDS: TIOTROPIUM 2.5 MCG INHALER INHALATION SCH (08:20)
[2022-05-14 08:38] LABS: C Reactive Protein 17.8 mg/dL (<1.0)
[2022-05-14] MEDS ORDERED: HYDROcodone/APAP 5-325MG 1 EACH TAB PO PRN ×2 (08:42)
[2022-05-14] MEDS ORDERED: HYDROmorphone 1 MG/ML 1 ML SYRINGE IVP PRN (08:42)
[2022-05-14] MEDS ORDERED: HYDROmorphone 0.5 MG/0.5 ML SYRINGE IVP PRN (08:42)
--- NOTE | 2022-05-14 08:56 | P.PN ---
Progress Note - Text Date: 05/14/2022 Time: 07:07 The patient is status post, right thoracotomy, postoperative day number 3. The patient has no complaints of nausea vomiting or headache. The patient does not complain of any lower extremity numbness or weakness. The epidural is running at 6 mL per hour. VAS 1-10. The epidural will be discontinued this a.m . Heparin has not been administered in 12 hours. Heparin can be readministered 4 hours after the epidural is discontinued. Pain medicines will be given to the patient by the service.
--- NOTE | 2022-05-14 09:57 | P.PN ---
Subjective Progress Note Date: 05/14/22 This morning patient states that he feels well. He is denying any shortness of breath. He is very appreciative of the care that he was receiving while in the hospital. This morning anesthesia discontinued his epidural for his pain. CT surgery plans on removing one of his chest tubes. Objective - Vital Signs Vital signs: Vital Signs Temp 98.7 F 05/14/22 09:00 Pulse 121 H 05/14/22 09:00 Resp 32 H 05/14/22 09:00 BP 126/76 05/14/22 09:00 Pulse Ox 97 05/14/22 09:00 FiO2 Intake & Output 05/13/22 05/14/22 05/14/22 18:59 06:59 18:59 Intake Total 1840 550 Output Total 517 978 Balance 1323 -428 Weight 89.3 kg Intake: IV 540 550 LR @75 40 Vancomycin 1,500 mg In 500 500 Sodium Chloride 0.9% 500 ml 500 ml @ 167 mls/hr IVPB Q12H [facility] Rx#: [id number] cefTRIAXone 2 gm In 50 Sodium Chloride 0.9% 50 ml @ 100 mls/hr IVPB Q24H [facility] Rx#:[id number] Intake, IV Titration 100 Amount Piperacillin-Tazobactam 3 100 .375 gm In Sodium Chloride 0.9% 100 ml @ 25 mls/hr IVPB Q8HR [facility] Rx# :[id number] Oral 1200 Output: Chest Tube Drainage 45 78 Anterior Chest 5 54 Posterior Chest 40 24 Urine 472 900 Other: Voiding Method Indwelling Catheter Indwelling Catheter # Bowel Movements 0 0 ABP, PAP, CO, CI - Last Documented Arterial Blood Pressure 131/82 - Exam General examination - Alert and Oriented 3 in NAD, appears chronically debilitated Heart - + S1S2 no murmurs, sinus tachycardia Lungs - diminished breath sounds bilaterally, 2 chest tubes in the right chest Abdomen soft NT ND +ve BS Extremities - No edema [employer] - Moving all 4 extremities spontaneously Psych - Calm and cooperative - Labs CBC & Chem 7: 05/14/22 06:47 05/14/22 06:47 Labs: Abnormal Lab Results - Last 24 Hours (Table) 05/13/22 05/13/22 05/13/22 Range/Units 11:26 16:18 20:03 RBC (4.30-5.90) m/uL Hgb (13.0-17.5) gm/dL Hct (39.0-53.0) % RDW (11.5-15.5) % Sodium (137-145) mmol/L BUN (9-20) mg/dL Glucose (74-99) mg/dL POC Glucose (mg/dL) 147 H 190 H 224 H (70-110) mg/dL C-Reactive Protein (<1.0) mg/dL Total Protein (6.3-8.2) g/dL Albumin (3.5-5.0) g/dL 05/14/22 05/14/22 05/14/22 Range/Units 06:43 06:47 06:47 RBC 3.67 L (4.30-5.90) m/uL Hgb 9.7 L (13.0-17.5) gm/dL Hct 30.7 L (39.0-53.0) % RDW 15.8 H (11.5-15.5) % Sodium 134 L (137-145) mmol/L BUN 21 H (9-20) mg/dL Glucose 118 H (74-99) mg/dL POC Glucose (mg/dL) 138 H (70-110) mg/dL C-Reactive Protein 17.8 H (<1.0) mg/dL Total Protein 4.8 L (6.3-8.2) g/dL Albumin 2.7 L (3.5-5.0) g/dL Microbiology - Last 24 Hours (Table) 05/12/22 19:46 Blood Culture - Preliminary Blood No Growth after 24 hours 05/11/22 18:22 Gram Stain - Preliminary Other - Other Tissue Culture - Preliminary Assessment and Plan Assessment: #Recurrent right-sided pleural effusion; differential includes malignancy versus empyema #Dyspnea secondary to the above #Fever with tachycardia on 05/12/2022 Patient has had multiple thoracenteses in the past with negative cultures and cytology On 05/11/2022 patient had VATS procedure with partial decortication Follow up on culture results from the VATS procedure and also cytology CT surgery to manage chest tubes. CT surgery plans to move one of the chest tubes today Epidural discontinued by anesthesiology today Pulmonology on board Infectious disease empirically started patient on IV Rocephin. I added vancomycin since patient was having fevers on 05/12/2022 Follow up on blood cultures done on 05/12/2022 #Acute blood loss anemia secondary to surgery Continue to trend CBC Hold Eliquis until cleared by CT surgery and hemoglobin is stable #Depression Resume Remeron #Positive blood culture Likely contaminant Blood cultures from 05/06 are negative Infectious disease on board #Chest pain ACS ruled out. Echocardiogram from 10/2021 shows EF 50-55% with mild concentric LVH. Patient will be continued on Lipitor and Metoprolol. Telemetry monitoring. Cardiology recommends no further workup. #Abnormal urinalysis Urine culture is negative. #Atrial fibrillation Increase metoprolol to better control her heart rate which is in the low 100s Resume Eliquis once hemoglobin is stable and cleared by CT surgery Chronic condition: Rheumatoid arthritis, diabetes mellitus Resume home meds DVT prophylaxis: [Subcu heparin] Anticipated discharge: [We'll discharge patient once cleared by CT surgery and pulmonology]
[2022-05-14] MEDS: PIPERACILLIN-TAZOBACTAM 3.375 GM in SODIUM CHLORIDE 0.9% 100 ML IVPB SCH ×2 (10:54→16:47)
[2022-05-14] MEDS: CHOLECALCIFEROL 25 MCG (1000 IU) TABLET PO SCH (10:58)
[2022-05-14] MEDS: METOPROLOL TARTRATE 50 MG TAB PO SCH ×2 (10:59→21:04)
[2022-05-14] MEDS: SENNOSIDES-DOCUSATE SODIUM 1 EACH TAB PO SCH ×2 (11:00→21:04)
[2022-05-14] MEDS: VANCOMYCIN 1,500 MG in SODIUM CHLORIDE 0.9% 500 ML 500 ML IVPB SCH ×2 (11:05→21:07)
[2022-05-14] MEDS: KETOCONAZOLE 2% SHAMPOO 1 APPLIC/ML TOPICAL SCH (11:10)
[2022-05-14 11:30] LABS: Glucose,Whole Blood 156 mg/dL (70-110)
[2022-05-14] MEDS: HEPARIN SODIUM,PORCINE/PF 5,000 UNIT/0.5 ML SYRINGE SQ SCH ×2 (12:52→21:03)
[2022-05-14] MEDS: chlorproMAZINE 25 MG TAB PO PRN ×2 (13:19→21:04)
[2022-05-14] MEDS: SODIUM CHLORIDE 0.9% 1,000 ML IV SCH (16:08)
[2022-05-14 16:29] LABS: Glucose,Whole Blood 120 mg/dL (70-110)
[2022-05-14] MEDS: TAMSULOSIN 0.4 MG CAP.ER.24H PO SCH (17:36)
[2022-05-14] MEDS ORDERED: VANCOMYCIN TROUGH DUE 1 EACH MISC MISCELLANE ONE (19:00)
[2022-05-14] MEDS: ATORVASTATIN 20 MG TAB PO SCH (21:04)
[2022-05-14] MEDS ORDERED: VANCOMYCIN 1,500 MG in SODIUM CHLORIDE 0.9% 500 ML 500 ML IVPB SCH (22:15)
--- NOTE | 2022-05-14 22:59 | P.PN ---
Subjective Progress Note Date: 05/14/22 Principal diagnosis: Positive blood culture question of empyema Patient is a 77-year-old male presenting to the hospital for increasing shortness of breath patient did have a recurrent right-sided pleural effusion with the recent thoracocentesis culture has been negative so far blood culture positive for gram positives likely contamination, the patient did have a CT of the chest with evidence of loculated right pleural effusion, Patient is status post Right anterolateral thoracotomy with partial decortication of right lung and Extensive lysis of adhesions, completed on 05/11/2022 On today's evaluation that is 05/14/2022, the patient is afebrile today, the p atient is breathing comfortably on nasal cannula oxygen, the patient right-sided chest pain is currently controlled, the pain did have occasional cough but no sputum production no abdominal pain no diarrhea Objective - Vital Signs Vital signs: Vital Signs Temp 98.7 F 05/14/22 09:00 Pulse 112 H 05/14/22 11:00 Resp 7 L 05/14/22 11:00 BP 125/75 05/14/22 11:00 Pulse Ox 97 05/14/22 11:00 FiO2 Intake & Output 05/13/22 05/14/22 05/14/22 18:59 06:59 18:59 Intake Total 1840 550 Output Total 517 978 395 Balance 1323 -428 -395 Weight 89.3 kg Intake: IV 540 550 LR @75 40 Vancomycin 1,500 mg In 500 500 Sodium Chloride 0.9% 500 ml 500 ml @ 167 mls/hr IVPB Q12H [facility] Rx#: [id number] cefTRIAXone 2 gm In 50 Sodium Chloride 0.9% 50 ml @ 100 mls/hr IVPB Q24H [facility] Rx#:[id number] Intake, IV Titration 100 Amount Piperacillin-Tazobactam 3 100 .375 gm In Sodium Chloride 0.9% 100 ml @ 25 mls/hr IVPB Q8HR [facility] Rx# :[id number] Oral 1200 Output: Chest Tube Drainage 45 78 0 Anterior Chest 5 54 0 Posterior Chest 40 24 0 Urine 472 900 395 Other: Voiding Method Indwelling Catheter Indwelling Catheter # Bowel Movements 0 0 ABP, PAP, CO, CI - Last Documented Arterial Blood Pressure 131/82 - Exam GENERAL DESCRIPTION: An elderly male lying in bed in no distress RESPIRATORY SYSTEM: Unlabored breathing , decreased breath sounds at bases HEART: S1 S2 regular rate and rhythm , ABDOMEN: Soft , no tenderness EXTREMITIES: No edema feet - Labs CBC & Chem 7: 05/14/22 06:47 05/14/22 06:47 Labs: Abnormal Lab Results - Last 24 Hours (Table) 05/13/22 05/13/22 05/14/22 Range/Units 16:18 20:03 06:43 RBC (4.30-5.90) m/uL Hgb (13.0-17.5) gm/dL Hct (39.0-53.0) % RDW (11.5-15.5) % Sodium (137-145) mmol/L BUN (9-20) mg/dL Glucose (74-99) mg/dL POC Glucose (mg/dL) 190 H 224 H 138 H (70-110) mg/dL C-Reactive Protein (<1.0) mg/dL Total Protein (6.3-8.2) g/dL Albumin (3.5-5.0) g/dL 05/14/22 05/14/22 05/14/22 Range/Units 06:47 06:47 11:28 RBC 3.67 L (4.30-5.90) m/uL Hgb 9.7 L (13.0-17.5) gm/dL Hct 30.7 L (39.0-53.0) % RDW 15.8 H (11.5-15.5) % Sodium 134 L (137-145) mmol/L BUN 21 H (9-20) mg/dL Glucose 118 H (74-99) mg/dL POC Glucose (mg/dL) 156 H (70-110) mg/dL C-Reactive Protein 17.8 H (<1.0) mg/dL Total Protein 4.8 L (6.3-8.2) g/dL Albumin 2.7 L (3.5-5.0) g/dL Microbiology - Last 24 Hours (Table) 05/12/22 19:46 Blood Culture - Preliminary Blood No Growth after 24 hours 05/11/22 18:22 Gram Stain - Preliminary Other - Other Tissue Culture - Preliminary Assessment and Plan (1) Pneumonia Current Visit: No Status: Acute Code(s): J18.9 - PNEUMONIA, UNSPECIFIED ORGANISM SNOMED Code(s): 589777917 (2) Positive blood culture Current Visit: No Status: Acute Code(s): R78.81 - BACTEREMIA SNOMED Code(s): 737029634 Plan: 1patient with a positive blood culture with bacillus species and micrococcus more likely skin contamination at the present do not have any clinical disease to go along with it and repeat blood cultures on 05/06/2020 so far negative 2patient with recurrent right-sided effusion s/p paracentesis white count was not significantly elevated CT chest with a question of possible loculated effusion and empyema and patient is status post Right anterolateral thoracotomy with partial decortication of right lung and Extensive lysis of adhesions, culture has been no pain which are so far negative 3-patient with a new fever blood cultures obtained which are currently pending patient to continue with the Zosyn and monitor clinical course closely
[2022-05-15 00:24] LABS: Glucose,Whole Blood 122 mg/dL (70-110)
--- NOTE | 2022-05-15 01:00 | CT ---
EXAMINATION TYPE: CT brain romeline wo con DATE OF EXAM: 05/15/2022 COMPARISON: None HISTORY: FALL, BEST POSSIBLE, PT WOULD NOT HOLD STILL CT DLP: 1772.8 mGycm Automated exposure control for dose reduction was used. Images of the brain and cervical spine obtained with no contrast. There is diffuse cerebral cortical atrophy. There is no mass effect or midline shift. No sign of intr acranial hemorrhage. The calvarium is intact. There is mucous retention cyst 2 cm in the left maxilla ry sinus. There is some mucosal thickening in the right mastoid sinus. The skull base is intact. The cervical vertebra have normal alignment. There is mild degenerative spur formation of the endplat es from C3 to T1. The posterior elements are intact. There is multiple levels of hypertrophic cervica l facet arthropathy. No subluxation. No compression fracture. IMPRESSION: Cervical mild multilevel spondylotic changes. No fracture. Cerebral atrophy. No acute intracranial abnormality. Mild right-sided mastoiditis. Mucous retention c yst left maxillary sinus. No acute intracranial abnormality.
[2022-05-15] MEDS: PIPERACILLIN-TAZOBACTAM 3.375 GM in SODIUM CHLORIDE 0.9% 100 ML IVPB SCH ×3 (01:48→16:37)
[2022-05-15 06:24] LABS: Glucose,Whole Blood 95 mg/dL (70-110)
[2022-05-15] MEDS: PANTOPRAZOLE 40 MG TABLET PO SCH (06:30)
[2022-05-15 07:31] LABS: Anisocytosis Slight; HCT 31.1 % (39.0-53.0); HGB 9.7 gm/dL (13.0-17.5); Hypochromasia Moderate; MCH 26.3 pg (25.0-35.0); MCHC 31.4 g/dL (31.0-37.0); MCV 83.9 fL (80.0-100.0); Mean Platelet Volume 9.1; Platelet Count 261 k/uL (150-450); RBC 3.71 m/uL (4.30-5.90); RDW 16.4 % (11.5-15.5); WBC 6.2 k/uL (3.8-10.6)
[2022-05-15 07:53] LABS: African American GFR (CKD) >90 (>60 ml/min/1.73 sqM); Anion Gap 5 mmol/L; Blood Urea Nitrogen 14 mg/dL (9-20); Calcium 8.6 mg/dL (8.4-10.2); Carbon Dioxide 29 mmol/L (22-30); Chloride 106 mmol/L (98-107); Glucose 86 mg/dL (74-99); Non-African American GFR(CKD) >90 (>60 ml/min/1.73 sqM); Potassium 3.8 mmol/L (3.5-5.1); Sodium 140 mmol/L (137-145)
--- NOTE | 2022-05-15 07:59 | XR ---
EXAMINATION TYPE: XR chest 1V portable DATE OF EXAM: 05/15/2022 COMPARISON: Chest x-ray 05/14/2022 HISTORY: Chest tube, status post thoracotomy TECHNIQUE: Single frontal view of the chest is obtained. FINDINGS: There is been interval removal of one of the 2 chest tubes, the basilar chest tube remains in place on the right. No sizable pneumothorax. There is pleural thickening, atelectatic change or s carring in the right lung. Interstitium is diffusely increased. Surgical clips are present over the l eft lung apex. Cardiac mediastinal silhouette is stable. IMPRESSION: No evident complication status post chest tube removal.
[2022-05-15] MEDS: IPRATROPIUM-ALBUTEROL 3 ML NEB IH SCH ×4 (08:15→19:35)
[2022-05-15] MEDS: SYMBICORT 80-4.5 MCG INHALER INHALATION SCH ×2 (08:15→19:35)
[2022-05-15] MEDS: TIOTROPIUM 2.5 MCG INHALER INHALATION SCH (08:18)
[2022-05-15] MEDS: HEPARIN SODIUM,PORCINE/PF 5,000 UNIT/0.5 ML SYRINGE SQ SCH (08:22)
[2022-05-15] MEDS: VANCOMYCIN 1,750 MG in SODIUM CHLORIDE 0.9% 500 ML 500 ML IVPB SCH ×2 (08:22→23:07)
[2022-05-15] MEDS: METOPROLOL TARTRATE 50 MG TAB PO SCH ×2 (08:22→20:50)
[2022-05-15] MEDS: CHOLECALCIFEROL 25 MCG (1000 IU) TABLET PO SCH (08:22)
[2022-05-15] MEDS: SENNOSIDES-DOCUSATE SODIUM 1 EACH TAB PO SCH ×2 (08:22→20:50)
--- NOTE | 2022-05-15 09:08 | P.PN ---
Subjective Progress Note Date: 05/15/22 Principal diagnosis: Chronic right-sided empyema with trapped lung, status post thoracentesis 4, cytology negative for malignancy, shortness of breath. Past medical history significant for asbestos exposure, rheumatoid arthritis, paroxysmal atrial fibrillation, pulmonary embolism on Eliquis for anticoagulation, mild mitral and mild tricuspid regurgitation with normal left ventricular systolic function, recent history of melanoma skin cancer status post resection in December 2021, type 2 diabetes, previous tobacco dependence, COPD. POD #3 bronchoscopy, right anterolateral thoracotomy with partial decortication of right lung, extensive lysis of adhesions. The patient was seen and examined in follow-up today 05/15/2022 his bedside in the intensive care unit. Currently he is sitting up to the bedside chair, is awake, alert, oriented 3 and is in no acute apparent distress. Patient's nurse reports that the patient was attempting to get out of bed last night to use the urinal and fell and hit his head with a small laceration present to his forehead. A computed tomography scan of his brain C-spine without contrast was completed which showed cervical mild multilevel spondylitic changes, no fracture and cerebral atrophy, no acute intracranial abnormalities, mild right-sided mastoiditis, and mucous retention cyst left maxillary sinus. Currently the patient denies any complaints of pain or shortness of breath, although is complaining of episodes of hiccups. He was started on some Thorazine yesterday as needed for hiccups, although the patient reports there has been no change with the Thorazine in place. Oxygen saturations are 97% on room air and he is achieving 1500 mL on his incentive spirometry was encouraged. His right chest anterior pleural chest tube was removed yesterday without incident. Right pleural chest tube remains in place to waterseal. No air leak is present. Draining thin serosanguineous drainage with 100 mL output in the last 24 hours. Bedside telemetry showing normal sinus rhythm heart rate 83 BPM. He remains afebrile. The patient remains on Zosyn and vancomycin managed by infectious disease for positive blood culture of micrococcus species. Surgical pathology results remain pending. Objective - Vital Signs Vital signs: Vital Signs Temp 97.6 F 05/15/22 08:00 Pulse 88 05/15/22 08:28 Resp 21 05/15/22 08:00 BP 138/75 05/15/22 08:00 Pulse Ox 96 05/15/22 08:00 FiO2 Intake & Output 05/14/22 05/15/22 05/15/22 18:59 06:59 18:59 Intake Total 1220 680 Output Total 690 1530 Balance 530 -850 Intake: IV 730 680 Sodium Chloride 0.9% 1, 30 80 000 ml @ 10 mls/hr IV . Q24H DANELLE Rx#:[id number] Vancomycin 1,500 mg In 500 500 Sodium Chloride 0.9% 500 ml 500 ml @ 167 mls/hr IVPB Q12H DANELLE Rx#: [id number] Zosyn 200 100 Oral 490 Output: Chest Tube Drainage 75 80 Anterior Chest 0 Posterior Chest 75 80 Urine 615 1450 Straight 600 Other: Voiding Method Bedside Commode Urinal # Voids 1 1 # Bowel Movements 1 ABP, PAP, CO, CI - Last Documented Arterial Blood Pressure 131/82 - Exam CONSTITUTIONAL: Appears comfortable, cooperative, no acute distress. Sitting up to the bedside chair in the intensive care unit. RESPIRATORY: Lungs sounds diminished bilaterally, right greater than left. Few scattered crackles to his bilateral lower lobes. Respirations are symmetrical, nonlabored. Currently on room air with oxygen saturation 9%. Able to achieve 1500 mL on his incentive spirometry. Strong cough. CARDIOVASCULAR: S1, S2 present. Regular rate and rhythm, sinus rhythm on telemetry with heart rate of 83. Peripheral pulses palpable bilaterally. No edema present. No calf pain or tenderness noted. Bilateral lower extremity sequential compression devices in place. GASTROINTESTINAL: Abdomen soft, nontender, nondistended. Active bowel sounds present 4 quadrants. Tolerating minimal diet. Bowel movement yesterday 05/14/2022. GENITOURINARY: Continues to void. 250 mL of urine output in the last 8 hours. INTEGUMENTARY: Skin is warm and dry, no clubbing or cyanosis is present. Dressings to his right thoracotomy incision and chest tube insertion sites are clean, dry and intact. No drainage or redness is present. NEUROLOGIC: Cranial nerves II through XII intact. Epidural site clean, dry and intact. MUSKULOSKELETAL: Able to move all extremities, strength equal bilaterally, gait normal. PSYCHIATRIC: Alert and oriented to person place and time, appropriate affect, intact judgment and insight INVASIVE LINES AND TUBES: Right posterior pleural chest tube remains in place to water seal. No air leak present. Draining thin serosanguineous drainage with 100 mL output in the last 24 hours. - Allied health notes Allied health notes reviewed: nursing - Labs CBC & Chem 7: 05/15/22 06:46 05/15/22 06:46 Labs: Abnormal Lab Results - Last 24 Hours (Table) 05/14/22 05/14/22 05/14/22 Range/Units 06:47 11:28 16:28 RBC (4.30-5.90) m/uL Hgb (13.0-17.5) gm/dL Hct (39.0-53.0) % RDW (11.5-15.5) % POC Glucose (mg/dL) 156 H 120 H (70-110) mg/dL Procalcitonin 1.49 H (0.02-0.09) ng/mL 05/15/22 05/15/22 Range/Units 00:23 06:46 RBC 3.71 L (4.30-5.90) m/uL Hgb 9.7 L (13.0-17.5) gm/dL Hct 31.1 L (39.0-53.0) % RDW 16.4 H (11.5-15.5) % POC Glucose (mg/dL) 122 H (70-110) mg/dL Procalcitonin (0.02-0.09) ng/mL Microbiology - Last 24 Hours (Table) 05/12/22 19:46 Blood Culture - Preliminary Blood No Growth after 48 hours 05/11/22 18:22 Gram Stain - Preliminary Other - Other Tissue Culture - Preliminary - Imaging and Cardiology Chest x-ray: report reviewed, image reviewed Assessment and Plan Assessment: 1. Chronic right-sided empyema with trapped lung, status post thoracentesis 4, pathology negative for malignancy, status post right anterolateral thoracotomy with partial decortication of right lung and extensive lysis of adhesions 2. Shortness of breath secondary to above 3. Positive blood culture for Micrococcus species, on Rocephin for antibiotic coverage managed by infectious disease. 4. History of asbestos exposure 5. Rheumatoid arthritis 6. Paroxysmal atrial fibrillation, history of pulmonary embolism, on Eliquis for anticoagulation as an outpatient, currently sinus rhythm 7. Mild mitral and mild tricuspid valve regurgitation with normal left ventricular systolic function, being monitored outpatient 8. Recent history of melanoma skin cancer status post resection in December 2021 9. Type 2 diabetes 10. Previous tobacco dependence 11. COPD 12. Status post fall from standing Plan: 1. We will remove his right pleural chest tube today. 2. Encourage use of incentive spirometry 10 times every hour while awake. 3. Out of bed for all meals, increase activity as tolerated. 4. Continue to monitor daily chest x-rays. 5. Pain control per when necessary orders. 6. Pathology and culture results remain pending. Continue to follow culture and pathology results. 7. Physical and occupational therapy following. 8. GI and DVT prophylaxis. 9. Continue to bladder scan and straight cath for greater than 300 mL postvoid residual. 10. Management of other comorbidities per primary care, pulmonology, cardiology 11. Continue to hold Eliquis. Can restart Eliquis tomorrow 05/16/2022. 12. Medical management other comorbidities per primary care service. 13. Antibiotic management per infectious disease recommendations. Positive blood culture on 05/05/2022 for Micrococcus species. 14. More recommendations to follow based on patient's clinical course. Time with Patient: Greater than 30
[2022-05-15 11:23] LABS: Glucose,Whole Blood 116 mg/dL (70-110)
--- NOTE | 2022-05-15 13:37 | P.PN ---
Subjective Progress Note Date: 05/15/22 Patient is a 77-year-old male with PMH of COPD, melanoma status post resection, history of pulmonary embolus on Eliquis, recurrent right-sided pleural effusion, rheumatoid arthritis and type 2 diabetes mellitus who presents the ED for shortness of breath. Patient has had multiple hospital admissions, most recently on April 18 and discharged on April 20. Since his discharge, patient reports shortness of breath, worsened with exertion has been progressively getting worse. In the ED, his vital signs were stable, though tachycardic with heart rate in the 90s. CBC showed hemoglobin of 12.6. INR was 1. CMP showed chloride of 109, bicarb of 21, glucose 110, alkaline phosphatase of 198. BNP was 219. Troponin was less than 0.0122, ASC was ruled out, Cardiology recommended no further intervention. Urinalysis showed large leukocyte esterase. Chest x-ray showed chronic right pleural effusion. Pathology results from previous admission shows no malignancy. Pulmonology was consulted. Chest US shows moderate pleural effusion. He underwent thoracentesis with [address] surgery was consulted and patient underwent bronchoscopy, right anterolateral thoracotomy with partial decortication of right lung and extensive lysis of adhesions with chest tube placement. Patient had a fever on 05/12, initial blood cultures from 05/05 showed micococcus thought to be a contaminant and he was empirically started on Vancomycin and Zosyn. Repeat blood cultures and pleural fluid cultures are negative so far, infectious disease on board. Patient was seen and examined. He had a mechanical fall overnight. He reports generalized weakness from his prolonged hospitalization. He reports improvement in his breathing. Chest tubes discontinued. at bedside. General: non toxic, no distress, appears at stated age Derm: warm, dry Head: atraumatic, normocephalic, symmetric Eyes: EOMI, no lid lag, anicteric sclera Mouth: no lip lesion, mucus membranes moist Cardiovascular: S1S2 reg, no murmur, positive DP pulse bilateral, Lungs: Decreased breath sounds bilateral, no rhonchi, no rales , no accessory muscle use Ext: no gross muscle atrophy, no edema, no contractures, transmetatarsal amp utation right hand Neuro: no focal neuro deficits Psych: Alert, oriented, appropriate affect #Recurrent right-sided pleural effusion; differential includes malignancy versus empyema #Dyspnea secondary to the above #Fever with tachycardia on 05/12/2022 Patient has had multiple thoracenteses in the past with negative cultures and cytology. On 05/11/2022 patient had VATS procedure with partial decortication. Follow up on culture results from the VATS procedure and also cytology. CT surgery to manage chest tubes. Pulmonology on board. Infectious disease empirically started patient on IV Zosyn and Vancomycin. Follow up on blood cultures done on 05/12/2022. #Acute blood loss anemia secondary to surgery Continue to trend CBC. Hold Eliquis until cleared by CT surgery and hemoglobin is stable. #Depression Resume Remeron. #Positive blood culture Likely contaminant. Blood cultures from 05/06 are negative. Infectious disease on board. #Chest pain ACS ruled out. Echocardiogram from 10/2021 shows EF 50-55% with mild concentric LVH. Patient will be continued on Lipitor and Metoprolol. Telemetry monitoring. Cardiology recommends no further workup. #Abnormal urinalysis Urine culture is negative. #Atrial fibrillation Increase metoprolol to better control her heart rate which is in the low 100s. Resume Eliquis once hemoglobin is stable and cleared by CT surgery. Chronic condition: Rheumatoid arthritis, diabetes mellitus Resume home meds. DVT prophylaxis: SQ heparin Anticipated discharge: Discussed with Dr. Rosenbaum, repeat CXR tomorrow, anticipate DC in 1-2 days. Objective - Vital Signs Vital signs: Vital Signs Temp 97.6 F 05/15/22 08:00 Pulse 88 05/15/22 08:15 Resp 21 05/15/22 08:00 BP 138/75 05/15/22 08:00 Pulse Ox 96 05/15/22 08:00 FiO2 Intake & Output 05/14/22 05/15/22 05/15/22 18:59 06:59 18:59 Intake Total 1220 680 Output Total 690 1530 Balance 530 -850 Intake: IV 730 680 Sodium Chloride 0.9% 1, 30 80 000 ml @ 10 mls/hr IV . Q24H DANELLE Rx#:[id number] Vancomycin 1,500 mg In 500 500 Sodium Chloride 0.9% 500 ml 500 ml @ 167 mls/hr IVPB Q12H DANELLE Rx#: [id number] Zosyn 200 100 Oral 490 Output: Chest Tube Drainage 75 80 Anterior Chest 0 Posterior Chest 75 80 Urine 615 1450 Straight 600 Other: Voiding Method Bedside Commode Urinal # Voids 1 1 # Bowel Movements 1 ABP, PAP, CO, CI - Last Documented Arterial Blood Pressure 131/82 - Labs CBC & Chem 7: 05/15/22 06:46 05/15/22 06:46 Labs: Abnormal Lab Results - Last 24 Hours (Table) 05/14/22 05/14/22 05/14/22 Range/Units 06:47 06:47 11:28 RBC (4.30-5.90) m/uL Hgb (13.0-17.5) gm/dL Hct (39.0-53.0) % RDW (11.5-15.5) % POC Glucose (mg/dL) 156 H (70-110) mg/dL C-Reactive Protein 17.8 H (<1.0) mg/dL Procalcitonin 1.49 H (0.02-0.09) ng/mL 05/14/22 05/15/22 05/15/22 Range/Units 16:28 00:23 06:46 RBC 3.71 L (4.30-5.90) m/uL Hgb 9.7 L (13.0-17.5) gm/dL Hct 31.1 L (39.0-53.0) % RDW 16.4 H (11.5-15.5) % POC Glucose (mg/dL) 120 H 122 H (70-110) mg/dL C-Reactive Protein (<1.0) mg/dL Procalcitonin (0.02-0.09) ng/mL Microbiology - Last 24 Hours (Table) 05/12/22 19:46 Blood Culture - Preliminary Blood No Growth after 48 hours 05/11/22 18:22 Gram Stain - Preliminary Other - Other Tissue Culture - Preliminary
[2022-05-15 16:27] LABS: Glucose,Whole Blood 138 mg/dL (70-110)
[2022-05-15] MEDS: ALPRAZolam 0.25 MG TAB PO PRN (16:37)
[2022-05-15] MEDS: SODIUM CHLORIDE 0.9% 1,000 ML IV SCH (16:39)
[2022-05-15] MEDS: TAMSULOSIN 0.4 MG CAP.ER.24H PO SCH (18:48)
[2022-05-15] MEDS: ATORVASTATIN 20 MG TAB PO SCH (20:50)
[2022-05-16] MEDS: PIPERACILLIN-TAZOBACTAM 3.375 GM in SODIUM CHLORIDE 0.9% 100 ML IVPB SCH ×2 (00:57→09:19)
[2022-05-16] MEDS: HEPARIN SODIUM,PORCINE/PF 5,000 UNIT/0.5 ML SYRINGE SQ SCH ×2 (00:57→09:20)
[2022-05-16] MEDS: PANTOPRAZOLE 40 MG TABLET PO SCH (06:52)
[2022-05-16] MEDS: IPRATROPIUM-ALBUTEROL 3 ML NEB IH SCH ×3 (07:44→15:22)
[2022-05-16] MEDS: SYMBICORT 80-4.5 MCG INHALER INHALATION SCH (07:44)
--- NOTE | 2022-05-16 08:04 | XR ---
EXAMINATION TYPE: XR chest 2V DATE OF EXAM: 05/16/2022 COMPARISON: Chest x-ray 05/15/2022 HISTORY: Postop right thoracotomy TECHNIQUE: Frontal and lateral views of the chest are obtained. FINDINGS: Right-sided chest tube has been removed. Some blunting of the right costophrenic angle is present suggesting small pleural effusion. No sizable pneumothorax or other significant interval chatman ge. IMPRESSION: No evident complication status post right-sided chest tube removal.
[2022-05-16 09:10] LABS: African American GFR (CKD) >90 (>60 ml/min/1.73 sqM); Anion Gap 7 mmol/L; Blood Urea Nitrogen 12 mg/dL (9-20); Calcium 8.8 mg/dL (8.4-10.2); Carbon Dioxide 24 mmol/L (22-30); Chloride 109 mmol/L (98-107); Glucose 112 mg/dL (74-99); Non-African American GFR(CKD) 90 (>60 ml/min/1.73 sqM); Potassium 4.1 mmol/L (3.5-5.1); Sodium 140 mmol/L (137-145)
[2022-05-16] MEDS: CHOLECALCIFEROL 25 MCG (1000 IU) TABLET PO SCH (09:20)
[2022-05-16] MEDS: METOPROLOL TARTRATE 50 MG TAB PO SCH (09:21)
[2022-05-16] MEDS: SENNOSIDES-DOCUSATE SODIUM 1 EACH TAB PO SCH (09:21)
[2022-05-16] MEDS: KETOCONAZOLE 2% SHAMPOO 1 APPLIC/ML TOPICAL SCH (09:21)
[2022-05-16 10:28] VITALS: BP 163/81; RESP 20; TEMP 98
--- NOTE | 2022-05-16 12:15 | P.DS ---
Providers Date of admission: 05/04/22 14:34 Expected date of discharge: 05/16/22 Attending physician: Machelle Hudson MD Consults: 05/04/22 13:39 Consult Physician Routine Consulting Provider: Jus Portillo Consult Reason/Comments: cp Do you want consulting provider notified?: Yes 05/04/22 17:24 Consult Physician Routine Consulting Provider: Moncho Lanza Consult Reason/Comments: R pleural effusion Do you want consulting provider notified?: Yes 05/08/22 09:50 Consult Physician Routine Consulting Provider: Radha Reina Consult Reason/Comments: bacteremia Do you want consulting provider notified?: Yes 05/08/22 13:07 Consult Physician Routine Consulting Provider: Talha Rosenbaum Consult Reason/Comments: Chronic right side pleural effusion Do you want consulting provider notified?: Yes Primary care physician: [facility] Course: Patient is a 77-year-old male with PMH of COPD, melanoma status post resection, history of pulmonary embolus on Eliquis, recurrent right-sided pleural effusion, rheumatoid arthritis and type 2 diabetes mellitus who presents the ED for shortness of breath. Patient has had multiple hospital admissions, most recently on April 18 and discharged on April 20. Since his discharge, patient reports shortness of breath, worsened with exertion has been progressively getting worse. In the ED, his vital signs were stable, though tachycardic with heart rate in the 90s. CBC showed hemoglobin of 12.6. INR was 1. CMP showed chloride of 109, bicarb of 21, glucose 110, alkaline phosphatase of 198. BNP was 219. Troponin was less than 0.0122, ASC was ruled out, Cardiology recommended no further intervention. Urinalysis showed large leukocyte esterase. Chest x-ray showed chronic right pleural effusion. Pathology results from previous admission shows no malignancy. Pulmonology was consulted. Chest US shows moderate pleural effusion. He underwent thoracentesis with [address] surgery was consulted and patient underwent bronchoscopy, right anterolateral thoracotomy with partial decortication of right lung and extensive lysis of adhesions with chest tube placement. Chest tube was discontinued on 05/15. Patient had a fever on 05/12, initial blood cultures from 05/05 showed micococcus thought to be a contaminant and he was empirically started on Vancomycin and Zosyn. Repeat blood cultures and pleural fluid cultures are negative so far, infectious disease on board. Cultures did not grow anything by the time of discharge and patient was afebrile > 24H prior to discharge. Patient did have a mechanical fall on 05/15/2022, CT head/C-spine was negative for acute findings. He reported being tripped by IV lines. PT and OT worked with the patient during his hospitalization. Patient was seen and examined on 05/16/2022. He reported considerable improvement in his breathing. He had no other complaints and was requesting to be discharged home. He was able to ambulate around his room comfortably without any difficulties. He is advised to follow-up with his PCP within 1-2 days of discharge. He is advised follow-up with cardiothoracic surgeon Dr. Rosenbaum within 2 weeks of discharge for follow-up of biopsy and culture results. He does have an appointment with his collection teller Dr. Ivan on 05/16/2022. He'll be discharged home with 7 days of Augmentin as per Dr. Reina recommendations. Pertinent procedures include thoracentesis, bronchoscopy, right anterolateral thoracotomy with partial decortication of right lung and extensive lysis of adhesions. Pertinent studies include chest x-ray, chest ultrasound, chest CT, CT head/C- spine General: non toxic, no distress, appears at stated age Derm: warm, dry Head: atraumatic, normocephalic, symmetric Eyes: EOMI, no lid lag, anicteric sclera Mouth: no lip lesion, mucus membranes moist Cardiovascular: S1S2 reg, no murmur, positive DP pulse bilateral, Lungs: Decreased breath sounds bilateral, no rhonchi, no rales , no accessory muscle use Ext: no gross muscle atrophy, no edema, no contractures, transmetatarsal amputation right hand Neuro: no focal neuro deficits Psych: Alert, oriented, appropriate affect Discharge Diagnosis: #Recurrent right-sided pleural effusion; differential includes malignancy versus empyema #Dyspnea secondary to the above #Fever with tachycardia on 05/12/2022 #Acute blood loss anemia secondary to surgery #Depression #Positive blood culture #Chest pain #Abnormal urinalysis #Atrial fibrillation Chronic condition: Rheumatoid arthritis, diabetes mellitus This complex discharge took about 40 minutes to complete. Patient Condition at Discharge: Stable Plan - Discharge Summary Discharge Rx Participant: Yes New Discharge Prescriptions: New Amoxic-Pot Clav 875-125Mg [Augmentin 875-125] 1 tab PO Q12HR 7 Days #14 tab Continue Atorvastatin [Lipitor] 20 mg PO HS Fluticasone Propion/Salmeterol [Advair 250-50 Diskus] 1 puff INHALATION RT- BID Cholecalciferol [Vitamin D3 (25 Mcg = 1000 Iu)] 50 mcg PO DAILY Albuterol Nebulized [Ventolin Nebulized] 2.5 mg INHALATION RT-Q4H PRN PRN Reason: Shortness Of Breath metFORMIN HCL ER [Glucophage XR] 500 mg PO DAILY Apixaban [Eliquis] 5 mg PO BID #60 tab Calcium Carbonate/Vitamin D3 [Calcium 500-Vit D3 5 Mcg (200 Iu)] 1 tab PO BID Albuterol Inhaler [Ventolin Hfa Inhaler] 1 puff INHALATION RT-Q4H PRN PRN Reason: Shortness Of Breath Tamsulosin [Flomax] 0.4 mg PO HS Potassium Chloride [Klor-Con 10 ER] 10 meq PO DAILY Omeprazole [PriLOSEC] 20 mg PO [facility] Leflunomide [Arava] 20 mg PO DAILY Tiotropium 2.5 Mcg/Puff [Spiriva Respimat 2.5 Mcg] 2 puff INHALATION RT-DAILY Metoprolol Tartrate [Lopressor] 25 mg PO BID #60 tab Ketoconazole 2% Shampoo [Nizoral] 1 applic TOPICAL MOWEFR Discharge Medication List Atorvastatin [Lipitor] 20 mg PO HS 11/25/18 [History] Albuterol Inhaler [Ventolin Hfa Inhaler] 1 puff INHALATION RT-Q4H PRN 05/01/21 [History] Calcium Carbonate/Vitamin D3 [Calcium 500-Vit D3 5 Mcg (200 Iu)] 1 tab PO BID 05/01/21 [History] Cholecalciferol [Vitamin D3 (25 Mcg = 1000 Iu)] 50 mcg PO DAILY 05/01/21 [History] Fluticasone Propion/Salmeterol [Advair 250-50 Diskus] 1 puff INHALATION RT-BID 05/01/21 [History] Omeprazole [PriLOSEC] 20 mg PO AC-BRKFST 05/01/21 [History] Potassium Chloride [Klor-Con 10 ER] 10 meq PO DAILY 05/01/21 [History] Tamsulosin [Flomax] 0.4 mg PO HS 05/01/21 [History] Leflunomide [Arava] 20 mg PO DAILY 10/30/21 [History] Albuterol Nebulized [Ventolin Nebulized] 2.5 mg INHALATION RT-Q4H PRN 02/14/22 [History] Tiotropium 2.5 Mcg/Puff [Spiriva Respimat 2.5 Mcg] 2 puff INHALATION RT-DAILY 02/14/22 [History] metFORMIN HCL ER [Glucophage XR] 500 mg PO DAILY 02/14/22 [History] Apixaban [Eliquis] 5 mg PO BID #60 tab 02/15/22 [Rx] Metoprolol Tartrate [Lopressor] 25 mg PO BID #60 tab 02/17/22 [Rx] Ketoconazole 2% Shampoo [Nizoral] 1 applic TOPICAL MOWEFR 04/18/22 [History] Amoxic-Pot Clav 875-125Mg [Augmentin 875-125] 1 tab PO Q12HR 7 Days #14 tab 05/16/22 [Rx] Follow up Appointment(s)/Referral(s): [facility] [NON-STAFF] - Moncho Lanza MD [STAFF PHYSICIAN] - 05/16/22 10:30 am Talha Rosenbaum MD [STAFF PHYSICIAN] - 2 Weeks [facility]Clinic [Primary Care Provider] - 1-2 days Activity/Diet/Wound Care/Special Instructions: DISCHARGE INSTRUCTIONS: 1. No driving for 2 weeks, or until physician gives their ok. 2. No lifting, pushing, or pulling more than 10 pounds for 2 weeks. The physician will advise of any restriction changes. 3. Continue pain control per as needed orders. Alternate acetaminophen (Tylenol) and ibuprofen (Motrin/Advil) for pain. 4. Continue with incentive spirometry and splinting until otherwise directed by the physician. 5. Leave chest tube dressing for 48 hours. After that, remove all dressings and shower daily. 6. Routine incision care. No powders, lotions, ointments on incisions. 7. Please call surgeon/CRAYON GRADER for temp greater than 101 F or purulent drainage from incisions. Discharge Disposition: HOME SELF-CARE
--- NOTE | 2022-05-16 13:07 | P.PN ---
Subjective Progress Note Date: 05/16/22 Principal diagnosis: Chronic right-sided empyema with trapped lung, status post thoracentesis 4, cytology negative for malignancy, shortness of breath. Past medical history significant for asbestos exposure, rheumatoid arthritis, paroxysmal atrial fibrillation, pulmonary embolism on Eliquis for anticoagulation, mild mitral and mild tricuspid regurgitation with normal left ventricular systolic function, recent history of melanoma skin cancer status post resection in December 2021, type 2 diabetes, previous tobacco dependence, COPD. POD #4 bronchoscopy, right anterolateral thoracotomy with partial decortication of right lung, extensive lysis of adhesions. The patient was seen and examined in follow-up today 05/16/2022 at his bedside on the cardiac stepdown unit. Currently he is sitting up to the bedside chair, is awake, alert, oriented 3 and is in no acute apparent distress. He reports he feels much improved today, denies any complaints of pain or shortness of sally th at this time. He reports he was up ambulating with physical therapy yesterday and tolerated well. He is anxious to be discharged home. His right pleural chest tube was removed yesterday without incident. Chest x-ray report this morning shows some blunting of the right costophrenic angle suggesting a small pleural effusion and no sizable pneumothorax. He has been afebrile the last 24 hours. Oxygen saturations are 97% on room air and he is achieving 1850 mL on his incentive spirometry with encouragement. Objective - Vital Signs Vital signs: Vital Signs Temp 98.1 F 05/16/22 03:36 Pulse 101 H 05/16/22 03:36 Resp 18 05/16/22 03:36 BP 169/93 05/16/22 03:36 Pulse Ox 97 05/16/22 03:36 FiO2 Intake & Output 05/15/22 05/16/22 05/16/22 18:59 06:59 18:59 Intake Total 600 Output Total 425 200 Balance 175 -200 Intake: IV 600 Vancomycin 1,500 mg In 500 Sodium Chloride 0.9% 500 ml 500 ml @ 167 mls/hr IVPB Q12H COUNT INCLUDES THE [facility] Rx#: [id number] Zosyn 100 Output: Urine 425 200 Other: Voiding Method Urinal Urinal ABP, PAP, CO, CI - Last Documented Arterial Blood Pressure 131/82 - Exam CONSTITUTIONAL: Appears comfortable, cooperative, no acute distress. Sitting up to the bedside chair on the cardiac stepdown unit. RESPIRATORY: Lungs sounds diminished bilaterally, right greater than left. Few scattered crackles to his bilateral lower lobes. Respirations are symmetrical, nonlabored. Currently on room air with oxygen saturation 97%. Able to achieve 1850 mL on his incentive spirometry. Strong cough. CARDIOVASCULAR: S1, S2 present. Regular rate and rhythm, sinus rhythm on remote telemetry with heart rate of 91 BPM. Peripheral pulses palpable bilaterally. No edema present. No calf pain or tenderness noted. Bilateral lower extremity sequential compression devices in place. GASTROINTESTINAL: Abdomen soft, nontender, nondistended. Active bowel sounds present 4 quadrants. Tolerating minimal diet. Bowel movement 05/14/2022. GENITOURINARY: Continues to void. INTEGUMENTARY: Skin is warm and dry, no clubbing or cyanosis is present. Dressings to his right thoracotomy incision and chest tube insertion sites are clean, dry and intact. No drainage or redness is present. NEUROLOGIC: Cranial nerves II through XII intact. Epidural site clean, dry and intact. MUSKULOSKELETAL: Able to move all extremities, strength equal bilaterally, gait normal. PSYCHIATRIC: Alert and oriented to person place and time, appropriate affect, intact judgment and insight - Allied health notes Allied health notes reviewed: nursing - Labs CBC & Chem 7: 05/15/22 06:46 05/16/22 07:59 Labs: Abnormal Lab Results - Last 24 Hours (Table) 05/15/22 05/15/22 Range/Units 11:21 16:25 POC Glucose (mg/dL) 116 H 138 H (70-110) mg/dL Microbiology - Last 24 Hours (Table) 05/12/22 19:46 Blood Culture - Preliminary Blood No Growth after 72 hours 05/11/22 18:22 Gram Stain - Final Other - Other Tissue Culture - Final - Imaging and Cardiology Chest x-ray: report reviewed, image reviewed Assessment and Plan Assessment: 1. Chronic right-sided empyema with trapped lung, status post thoracentesis 4, pathology negative for malignancy, status post right anterolateral thoracotomy with partial decortication of right lung and extensive lysis of adhesions 2. Shortness of breath secondary to above 3. Positive blood culture for Micrococcus species, on Rocephin for antibiotic coverage managed by infectious disease. 4. History of asbestos exposure 5. Rheumatoid arthritis 6. Paroxysmal atrial fibrillation, history of pulmonary embolism, on Eliquis for anticoagulation as an outpatient, currently sinus rhythm 7. Mild mitral and mild tricuspid valve regurgitation with normal left ventricular systolic function, being monitored outpatient 8. Recent history of melanoma skin cancer status post resection in December 2021 9. Type 2 diabetes 10. Previous tobacco dependence 11. COPD 12. Status post fall from standing Plan: 1. May be discharged home from the cardiothoracic surgery standpoint when okay with primary care and other consultants. 2. Encourage use of incentive spirometry 10 times every hour while awake. 3. Out of bed for all meals, increase activity as tolerated. 4. Right pleural rind pathology showed inflamed benign fibrious tissue with fibrosis. 5. Pain control per when necessary orders. 6. Culture continued to show no growth after 72 hours. 7. Physical and occupational therapy following. 8. GI and DVT prophylaxis. 9. Continue to bladder scan and straight cath for greater than 300 mL postvoid residual. 10. Medical management of other comorbidities per primary care, pulmonology, cardiology. 11. Can restart Eliquis per the cardiothoracic surgery standpoint when okay with other services. 12. Medical management other comorbidities per primary care service. 13. Antibiotic management per infectious disease recommendations. Positive blood culture on 05/05/2022 for Micrococcus species. 14. We will continue to follow the patient on an as-needed basis, please reconsult for further questions. 15. Patient is scheduled to follow-up with Dr. Rosenbaum in 2 weeks on 05/25/2022 at 2:45 PM and will be instructed to obtain a 2 view chest x-ray prior to his follow-up visit. Time with Patient: Greater than 30
--- NOTE | 2022-05-16 13:31 | P.PN ---
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 Shortness of breath multifactorial due to fluid overload COPD Chest pain resolved Prior history of multiple medical problems including deep venous thrombosis,, cell carcinoma of the skin, melanoma 05/16/2022, patient seen eval examined during rounds labs reviewed medications reviewed radiographic studies reviewed patient is status post right-sided decortication, inflamed benign fibrous tissue with fibrosis, but chest tubes are out , chest x-ray stable post removal of chest tube 05/11/2022, patient seen eval examined during the rounds labs reviewed medications reviewed care plan discussed, respiratory status stable, patient is on room air breathing comfortably, patient is being planned for thoracotomy and decortication for later on today. Afebrile with stable hemodynamics saturation is 98% medications reviewed 05/10/2022, patient seen eval examined during the rounds labs reviewed medications reviewed, respiratory status slightly improved, patient mostly on room air, shortness of breath continued to improve, denies any chest pain, patient is scheduled for right thoracotomy with decortication for tomorrow if remains afebrile vitals are stable, patient currently has been on IV Rocephin for nonspecific culture remains on Lasix, BUN/creatinine stable 21/0.77, potassium is 3.8 05/09/2022, patient remains short of breath especially during activity and exertion oxygen saturation is stable, thoracic surgery and evaluated the patient they feel that VATS would not be an hour patient will likely need a thoracotomy. Patient is currently off of direct oral anticoagulant surgery is being considered for Saturday05/07/2022, patient seen eval reexamined the status post thoracentesis is about fluid has been removed by interventional radiology. Postprocedure no complication noted Doing well remains afebrile with hemodynamically stable oxygen saturation improved to 96% on room air, blood cultures have been positive for micrococcus species and bacillus final culture however has been negative. Patient remains on cefazolin tolerating well This patient is well-known to me readmitted for recurrent pleural effusion. 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 Patient is a 77-year-old male with PMH of COPD, melanoma status post resection, history of pulmonary embolus on Eliquis, recurrent right-sided pleural effusion, rheumatoid arthritis and type 2 diabetes mellitus who presents the ED for shortness of breath. Patient has had multiple hospital admissions, most recently on April 18 and discharged on April 20. Since his discharge, patient reports shortness of breath, worsened with exertion has been progressively g etting worse. Today he was at his PCP clinic at [facility] when he started experiencing substernal chest pain. He describes the chest pain to be pressure- like in nature with no radiation. There is no alleviating or aggravating factors. Pain had no radiation. These symptoms prompted him to come to the ED. He denies any headache, lower extremity edema, nausea or vomiting, fever or chills, cough, palpitations, changes in urination or bowel habits. He reports a decrease in appetite and subjective weight loss. He denies any dizziness, numbness/weakness/tingling of the extremities. In the ED, his vital signs were stable, though tachycardic with heart rate in the 90s. CBC showed hemoglobin of 12.6. INR was 1. CMP showed chloride of 109, bicarb of 21, glucose 110, alkaline phosphatase of 198. BNP was 219. Troponin was less than 0.0122. I was unable to pull up the EKG in the EMR. Urinalysis showed large leukocyte esterase. Chest x-ray showed chronic moderate right pleural effusion. Currently patient is being treated with bronchodilators as needed, being continued on the direct oral anticoagulant which is currently on hold for anticipation of thoracentesis Objective - Vital Signs Vital signs: Vital Signs Temp 98.0 F 05/16/22 08:00 Pulse 76 05/16/22 11:35 Resp 20 05/16/22 08:00 BP 163/81 05/16/22 08:00 Pulse Ox 94 L 05/16/22 08:00 FiO2 Intake & Output 05/15/22 05/16/22 05/16/22 18:59 06:59 18:59 Intake Total 600 Output Total 425 200 500 Balance 175 -200 -500 Intake: IV 600 Vancomycin 1,500 mg In 500 Sodium Chloride 0.9% 500 ml 500 ml @ 167 mls/hr IVPB Q12H [facility] Rx#: [id number] Zosyn 100 Output: Urine 425 200 500 Other: Voiding Method Urinal Urinal Urinal ABP, PAP, CO, CI - Last Documented Arterial Blood Pressure 131/82 - Exam Constitutional General appearance: average body habitus, cooperative, disheveled, mild distress - EENT Eyes: EOMI, PERRLA Ears: bilateral: normal - Neck Carotids: bilateral: upstroke normal Thyroid: negative: normal size - Respiratory Respiratory: right: diminished, dullness, left: rales - Cardiovascular Rhythm: regular Heart sounds: normal: S1, S2 - Gastrointestinal General gastrointestinal: normal bowel sounds - Integumentary Integumentary: normal turgor - Neurologic Neurologic: CNII-XII intact - Musculoskeletal Musculoskeletal: gait normal, generalized weakness, strength equal bilaterally - Psychiatric Psychiatric: A&O x's 3, appropriate affect, intact judgment & insight Results - Labs CBC & Chem 7: 05/15/22 06:46 05/16/22 07:59 Labs: Abnormal Lab Results - Last 24 Hours (Table) 05/15/22 05/16/22 Range/Units 16:25 07:59 Chloride 109 H (98-107) mmol/L Glucose 112 H (74-99) mg/dL POC Glucose (mg/dL) 138 H (70-110) mg/dL Microbiology - Last 24 Hours (Table) 05/12/22 19:46 Blood Culture - Preliminary Blood No Growth after 72 hours 05/11/22 18:22 Gram Stain - Final Other - Other Tissue Culture - Final Assessment and Plan Assessment: Right-sided chronic pleural effusion status post right thoracotomy and decortication benign fibrinous strand on final path report History of asbestosis exposure and asbestosis lung Shortness of breath multifactorial due to fluid overload and COPD Chest pain resolved Prior history of multiple medical problems including deep venous thrombosis,, cell carcinoma of the skin, melanoma Plan: Can resume direct oral anticoagulant Continue deep breathing exercises incentive spirometry and increase activity as tolerated Further workup and evaluation as outpatient Time with Patient: Greater than 30
[2022-05-16] MEDS ORDERED: INFLUENZA VACC HIGH-DOSE (65+) 240 MCG/0.7 ML SYRINGE IM ONE (15:26)
[2022-05-16 15:32] VITALS: PULSE 90
[2022-05-17] MEDS ORDERED: VANCOMYCIN TROUGH DUE 1 EACH MISC MISCELLANE ONE (08:00)
== END 2022-05-16 16:00 | disposition home or self-care (01) | DRG 163 ==
LOC: EC 10:19 → 6NMEDSUR 13:39 → 3SCARD 14:08 → OBSVTOIN 14:34 → 3SCARD 15:55 → 2SICU 05-11 17:58 → 3SCARD 05-16 03:16
PROVIDERS: ADMIT Family Medicine; ATTEND Family Medicine
PROC: 0W9930Z Drainage of Right Pleural Cavity with Drainage Device, Percutaneous Approach (ICD-10-PCS; 2022-05-07)
PROC: 0W9940Z Drainage of Right Pleural Cavity with Drainage Device, Percutaneous Endoscopic Approach (ICD-10-PCS; 2022-05-11)
PROC: 0BNK0ZZ Release Right Lung, Open Approach (ICD-10-PCS; principal; 2022-05-11 14:15)
DX: J90 Pleural effusion, not elsewhere classified (principal); I26.99 Other pulmonary embolism without acute cor pulmonale; J86.9 Pyothorax without fistula; J18.9 Pneumonia, unspecified organism; R78.81 Bacteremia; J44.0 Chronic obstructive pulmonary disease with (acute) lower respiratory infection; D62 Acute posthemorrhagic anemia; J93.82 Other air leak; N39.0 Urinary tract infection, site not specified; J98.19 Other pulmonary collapse; M06.9 Rheumatoid arthritis, unspecified; J61 Pneumoconiosis due to asbestos and other mineral fibers; I70.0 Atherosclerosis of aorta; E11.9 Type 2 diabetes mellitus without complications; I08.1 Rheumatic disorders of both mitral and tricuspid valves; F32.A Depression, unspecified; S01.81XA Laceration without foreign body of other part of head, initial encounter; N40.0 Benign prostatic hyperplasia without lower urinary tract symptoms; J94.1 Fibrothorax; B96.89 Other specified bacterial agents as the cause of diseases classified elsewhere; E87.70 Fluid overload, unspecified; I48.0 Paroxysmal atrial fibrillation; G47.9 Sleep disorder, unspecified; W18.30XA Fall on same level, unspecified, initial encounter; Y92.230 Patient room in hospital as the place of occurrence of the external cause; Z77.090 Contact with and (suspected) exposure to asbestos; Z96.653 Presence of artificial knee joint, bilateral; Z79.899 Other long term (current) drug therapy; Z79.51 Long term (current) use of inhaled steroids; Z79.84 Long term (current) use of oral hypoglycemic drugs; Z79.01 Long term (current) use of anticoagulants; Z86.711 Personal history of pulmonary embolism; Z87.891 Personal history of nicotine dependence; Z86.16 Personal history of COVID-19; Z85.820 Personal history of malignant melanoma of skin; Z85.831 Personal history of malignant neoplasm of soft tissue; Z85.038 Personal history of other malignant neoplasm of large intestine; Z86.718 Personal history of other venous thrombosis and embolism
CPT/HCPCS: 32555; 36415; 70450; 71045; 71046; 71250; 72125; 76604; 80048; 80053; 80202; 81001; 82150; 82945; 83615; 83735; 83880; 84145; 84157; 84484; 85025; 85027; 85610; 85730; 86140; 86850; 86900; 86901; 86920; 87040; 87070; 87075; 87077; 87086; 87102; 87116; 87186; 87205; 87206; 88108; 88305; 89050; 90662; 93005; 94640; 94760; 99285

== ENCOUNTER → 2022-05-21 | Outpatient (CLI) | payer OTHER ==
--- NOTE | 2022-05-21 12:32 | XR ---
EXAMINATION TYPE: XR chest 2V DATE OF EXAM: 05/21/2022 COMPARISON: 05/16/2022 TECHNIQUE: PA and lateral views submitted. HISTORY: Shortness of breath FINDINGS: Postsurgical changes left shoulder. Diffuse osteopenia with right-sided consolidation and small effus ion. Chronic right-sided rib cage deformities. Heart size stable. Hyperinflation suggests COPD. Surgi jennifer clips overlie left apex. Resolution of subcutaneous emphysema along the lateral margin right ches t. No sizable pneumothorax. IMPRESSION: 1. Right lower lobe infiltrate and pleural effusion stable with no sizable pneumothorax.
== END | disposition home or self-care (01) ==
LOC: RADXRMAIN 11:19
PROVIDERS: ATTEND Thoracic Surgery (Cardiothoracic Vascular Surgery)
DX: J90 Pleural effusion, not elsewhere classified (principal); R91.8 Other nonspecific abnormal finding of lung field
CPT/HCPCS: 71046

== ENCOUNTER 2022-07-01 06:47 | Emergency (ER) | payer OTHER ==
[2022-07-01 06:52] VITALS: BP 156/103; RESP 16; TEMP 97.1
--- NOTE | 2022-07-01 07:31 | ED ---
Male Urogenital HPI - General Chief complaint: Urogenital Stated complaint: urine retention Source: patient, RN notes reviewed, old records reviewed Mode of arrival: ambulatory - History of Present Illness Initial comments: Patient is a pleasant 77-year-old of presenting to the emergency room with complaints of inability to void. He reports that the last and that he urinated was 12 hours ago at 7 PM last night. He states that he feels the urge to void and has attempted to urinate multiple times but has been unsuccessful. He states that he had a similar problem approximately 3 years ago and had to undergo treatment with urology; symptoms improved. He has a known enlarged prostate but states that he was advised no intervention was needed. He denies any dysuria, urinary frequency or hematuria prior to his inability to void. He denies any flank pain, abdominal pain, chest pain, shortness of breath, nausea, vomiting, fevers or chills. He was recently hospitalized in April for COPD exa cerbation with recurrent chronic pleural effusions at that time he was also diagnosed with bacteremia and a urinary tract infection. 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 - Related Data Home Medications Medication Instructions Recorded Confirmed Atorvastatin [Lipitor] 20 mg PO HS 11/25/18 05/04/22 Albuterol Inhaler [Ventolin Hfa 1 puff INHALATION RT-Q4H PRN 05/01/21 05/04/22 Inhaler] Calcium Carbonate/Vitamin D3 1 tab PO BID 05/01/21 05/04/22 [Calcium 500-Vit D3 5 Mcg (200 Iu)] Cholecalciferol [Vitamin D3 (25 50 mcg PO DAILY 05/01/21 05/04/22 Mcg = 1000 Iu)] Fluticasone Propion/Salmeterol 1 puff INHALATION RT-BID 05/01/21 05/04/22 [Advair 250-50 Diskus] Omeprazole [PriLOSEC] 20 mg PO AC-BRKFST 05/01/21 05/04/22 Potassium Chloride [Klor-Con 10 ER] 10 meq PO DAILY 05/01/21 05/04/22 Tamsulosin [Flomax] 0.4 mg PO HS 05/01/21 05/04/22 Leflunomide [Arava] 20 mg PO DAILY 10/30/21 05/04/22 Albuterol Nebulized [Ventolin 2.5 mg INHALATION RT-Q4H PRN 02/14/22 05/04/22 Nebulized] Tiotropium 2.5 Mcg/Puff [Spiriva 2 puff INHALATION RT-DAILY 02/14/22 05/04/22 Respimat 2.5 Mcg] metFORMIN HCL ER [Glucophage XR] 500 mg PO DAILY 02/14/22 05/04/22 Ketoconazole 2% Shampoo [Nizoral] 1 applic TOPICAL MOWEFR 04/18/22 05/04/22 Previous Rx's Medication Instructions Recorded Apixaban [Eliquis] 5 mg PO BID #60 tab 02/15/22 Metoprolol Tartrate [Lopressor] 25 mg PO BID #60 tab 02/17/22 Amoxic-Pot Clav 875-125Mg 1 tab PO Q12HR 7 Days #14 tab 05/16/22 [Augmentin 875-125] Furosemide [Lasix] 40 mg PO DAILY #5 tablet 05/21/22 Allergies Allergy/AdvReac Type Severity Reaction Status Date / Time No Known Allergies Allergy Verified 07/01/22 06:53 Review of Systems ROS Statement: Those systems with pertinent positive or pertinent negative responses have been documented in the HPI. ROS Other: All systems not noted in ROS Statement are negative. Past Medical History Past Medical History: Cancer, Eye Disorder, Prostate Disorder, Pulmonary Embolus (PE), Rheumatoid Arthritis (RA) Additional Past Medical History / Comment(s): 2014 R sided PE, bilateral chronic lung nodules, "leaky heart valve", BPH, skin cancer (melanoma) with removals, malignant colon polyps removed, headaches since CHI, bilateral cataracts with removal. As of 05/04/2022-thoracentesis x3. History of Any Multi-Drug Resistant Organisms: None Reported Past Surgical History: Appendectomy, Cholecystectomy, Heart Catheterization, Joint Replacement, Orthopedic Surgery Additional Past Surgical History / Comment(s): R knee arthroscopy, bilateral total knee arthroplasties, R shoulder rotator cuff repair, L knee replacement, bilateral elbow surgery, R hand partial amputation d/t injury, colonoscopy with 2 cancerous polypectomies, skin cancer removed, EGD Past Anesthesia/Blood Transfusion Reactions: No Reported Reaction Additional Past Anesthesia/Blood Transfusion Reaction / Comment(s): Pt has never recieved blood. Past Psychological History: No Psychological Hx Reported Smoking Status: Former smoker - Past Family History Son(s) Family Medical History: Deep Vein Thrombosis (DVT) Father Family Medical History: Cancer Additional Family Medical History / Comment(s): Father of lymphoma at age 70 yrs. Mother Family Medical History: Cancer Additional Family Medical History / Comment(s): Mother had breast cancer. She at age 88yrs. General Exam General appearance: alert, in no apparent distress Head exam: Present: atraumatic, normocephalic, normal inspection Eye exam: Present: normal appearance, PERRL, EOMI. Absent: scleral icterus, conjunctival injection, periorbital swelling ENT exam: Present: normal exam, mucous membranes moist Neck exam: Present: normal inspection. Absent: tenderness, meningismus, lymphadenopathy Respiratory exam: Present: normal lung sounds bilaterally. Absent: respiratory distress, wheezes, rales, rhonchi, stridor Cardiovascular Exam: Present: normal rhythm, tachycardia, normal heart sounds. Absent: systolic murmur, diastolic murmur, rubs, gallop, clicks GI/Abdominal exam: Present: soft, tenderness (Pelvic), normal bowel sounds. Absent: distended, guarding, rebound, rigid Extremities exam: Present: normal inspection, other (right Hand amputation). Absent: pedal edema, joint swelling Back exam: Present: normal inspection. Absent: CVA tenderness (R), CVA tenderness (L) Neurological exam: Present: alert, oriented X3, CN II-XII intact Psychiatric exam: Present: normal affect, normal mood Skin exam: Present: warm, dry, intact, normal color. Absent: rash Course Vital Signs 07/01/22 07/01/22 06:51 10:14 Temperature 97.1 F L Pulse Rate 112 H 78 Respiratory 16 16 Rate Blood Pressure 156/103 O2 Sat by Pulse 96 99 Oximetry Medical Decision Making - Medical Decision Making 77-year-old male presented to the emergency room with complaints of urinary retention inability to urinate 12 hours. Will order Guerra catheter p lacement and obtain CBC, BMP along with urinalysis. Will defer medications and further testing until after results. Pelvic catheter placed by nurse without competitions with clear yellow urine obtained. Urinalysis negative for any concerning abnormalities small leukocyte Estrace and rare mucus noted. No hematuria or bacteria. CBC normal. BMP without acute abnormalities. Given lack of urinary tract infection concern for underlying etiology for urinary retention. Will obtain CT of the abdomen and pelvis. Pending any significant abnormalities requiring hospitalization will plan for discharge home with Guerra catheter in place and follow-up with urology. Computed tomography scan image interpreted by me demonstrates no bladder mass or hydronephrosis. Radiologist report also reviewed. Will discharge home with Guerra catheter in place and stable condition with follow-up with urology. Guerra catheter care instructions reviewed by nurse and patient has previously had a catheter. Questions and concerns answered. Case discussed with Dr. Espinal. - Lab Data Result diagrams: 07/01/22 08:02 07/01/22 08:02 Lab Results 07/01/22 07/01/22 07/01/22 Range/Units 08:02 08:02 08:02 WBC 5.9 (3.8-10.6) k/uL RBC 5.15 (4.30-5.90) m/uL Hgb 13.7 D (13.0-17.5) gm/dL Hct 42.7 (39.0-53.0) % MCV 83.0 (80.0-100.0) fL MCH 26.7 (25.0-35.0) pg MCHC 32.1 (31.0-37.0) g/dL RDW 15.4 (11.5-15.5) % Plt Count 222 (150-450) k/uL MPV 8.7 Neutrophils % 66 % Lymphocytes % 22 % Monocytes % 8 % Eosinophils % 2 % Basophils % 1 % Neutrophils # 3.9 (1.3-7.7) k/uL Lymphocytes # 1.3 (1.0-4.8) k/uL Monocytes # 0.5 (0-1.0) k/uL Eosinophils # 0.1 (0-0.7) k/uL Basophils # 0.0 (0-0.2) k/uL Sodium 140 (137-145) mmol/L Potassium 4.4 (3.5-5.1) mmol/L Chloride 108 H (98-107) mmol/L Carbon Dioxide 26 (22-30) mmol/L Anion Gap 6 mmol/L BUN 15 (9-20) mg/dL Creatinine 0.76 (0.66-1.25) mg/dL Est GFR (CKD-EPI)AfAm >90 (>60 ml/min/1.73 sqM) Est GFR (CKD-EPI)NonAf 88 (>60 ml/min/1.73 sqM) Glucose 107 H (74-99) mg/dL Calcium 9.5 (8.4-10.2) mg/dL Urine Color Light Yellow Urine Appearance Clear (Clear) Urine pH 5.5 (5.0-8.0) Ur Specific [place] 1.010 (1.001-1.035) Urine Protein Negative (Negative) Urine Glucose (UA) Negative (Negative) Urine Ketones Negative (Negative) Urine Blood Negative (Negative) Urine Nitrite Negative (Negative) Urine Bilirubin Negative (Negative) Urine Urobilinogen <2.0 (<2.0) mg/dL Ur Leukocyte Esterase Small H (Negative) Urine RBC <1 (0-5) /hpf Urine WBC 3 (0-5) /hpf Urine Mucus Rare H (None) /hpf - Radiology Data Radiology results: report reviewed, image reviewed CT the abdomen and pelvis without contrast impression by radiologist his multiple nonobstructing renal calculi seen bilaterally. Multiple consultations seen within the urinary bladder lumen. There is calcification at the base of the urinary bladder near the origin of the prostatic urethra Disposition Clinical Impression: Urinary retention Disposition: HOME SELF-CARE Condition: Stable Instructions (If sedation given, give patient instructions): Enlarged Prostate (BPH) (ED), Guerra Catheter Placement and Care (ED) Additional Instructions: Please continue to keep Guerra catheter in place avoid pulling on catheter and be sure to clean around catheter insertion site. May utilize leg bag during the day. Recommend full bag usage at nighttime. Please contact urology tomorrow to schedule an appointment as soon as possible. Please return to the Emergency Department if symptoms worsen or any other concerns. Is patient prescribed a controlled substance at d/c from ED?: No Referrals: [facility],Clinic [Primary Care Provider] - 1-2 days Jim Roberson MD [STAFF PHYSICIAN] - 1-2 days Time of Disposition: 09:56
[2022-07-01 08:24] LABS: Appearance,Urine Clear (Clear); Basophils % (A) 1 %; Bilirubin,Urine Negative (Negative); Blood,Urine Negative (Negative); Color,Urine Light Yellow; Eosinophils # (A) 0.1 k/uL (0-0.7); Eosinophils % (A) 2 %; Glucose,Urine (UA) Negative (Negative); HCT 42.7 % (39.0-53.0); Ketones,Urine Negative (Negative); Leukocyte Esterase,Urine Small (Negative); Lymphocytes # (A) 1.3 k/uL (1.0-4.8); Lymphocytes % (A) 22 %; MCH 26.7 pg (25.0-35.0); MCHC 32.1 g/dL (31.0-37.0); Mean Platelet Volume 8.7; Monocytes # (A) 0.5 k/uL (0-1.0); Monocytes % (A) 8 %; Mucus,Urine Rare /hpf; Neutrophils # (A) 3.9 k/uL (1.3-7.7); Neutrophils % (A) 66 %; Nitrite,Urine Negative (Negative); PH, Urine 5.5 (5.0-8.0); Platelet Count 222 k/uL (150-450); Protein,Urine Negative (Negative); RBC 5.15 m/uL (4.30-5.90); RBC,Urine <1 /hpf (0-5); RDW 15.4 % (11.5-15.5); Urobilinogen,Urine <2.0 mg/dL (<2.0); WBC 5.9 k/uL (3.8-10.6); WBC,Urine 3 /hpf (0-5)
[2022-07-01 08:25] LABS: HGB 13.7 gm/dL (13.0-17.5)
[2022-07-01 08:28] LABS: African American GFR (CKD) >90 (>60 ml/min/1.73 sqM); Anion Gap 6 mmol/L; Blood Urea Nitrogen 15 mg/dL (9-20); Calcium 9.5 mg/dL (8.4-10.2); Carbon Dioxide 26 mmol/L (22-30); Chloride 108 mmol/L (98-107); Glucose 107 mg/dL (74-99); Non-African American GFR(CKD) 88 (>60 ml/min/1.73 sqM); Potassium 4.4 mmol/L (3.5-5.1); Sodium 140 mmol/L (137-145)
--- NOTE | 2022-07-01 09:22 | CT ---
EXAMINATION TYPE: CT abdomen pelvis wo con DATE OF EXAM: 07/01/2022 COMPARISON: 03/14/2020 HISTORY: urine retention CT DLP: 695.8 mGycm Examination of the solid and hollow viscera is limited given the lack of contrast. FINDINGS: LUNG BASES: Pleural effusion right lung base. Dependent atelectasis left lower lobe. LIVER/GB: The gallbladder surgically absent. No space-occupying hepatic lesion. PANCREAS: No pancreatic mass identified. No inflammatory process seen. SPLEEN: No evidence for splenomegaly. No intrasplenic lesions seen. ADRENALS: No adrenal nodules identified. No evidence for thickening. KIDNEYS: No evidence for renal mass. Multiple nonobstructing renal calculi are seen bilaterally measu ring up to 3.5 mm on the right and up to 4.5 mm on the left. No hydronephrosis. Guerra catheter is wit hin the urinary bladder. Multiple calcifications are seen within the urinary bladder lumen. There is a calcification at the base of the urinary bladder near the origin of the prostatic urethra. BOWEL: Appendix has a normal appearance. No evidence of bowel obstruction. No inflammatory process. Lymph nodes: No evidence for adenopathy greater than 1 cm. Abdominal aorta: Atheromatous changes seen. No evidence for aneurysm. Genital organs: Multiple prostate calcifications are present. Other: No significant abnormality. IMPRESSION: 1. Multiple nonobstructing renal calculi seen bilaterally. 2.Multiple calcifications are seen within the urinary bladder lumen. There is a calcification at the base of the urinary bladder near the origin of the prostatic urethra.
[2022-07-01 10:15] VITALS: PULSE 78
== END 2022-07-01 10:15 | disposition home or self-care (01) ==
LOC: SUPCPDRO 06:47 → EC 06:47
DX: R33.9 Retention of urine, unspecified (principal); N20.0 Calculus of kidney; I26.99 Other pulmonary embolism without acute cor pulmonale; Z87.891 Personal history of nicotine dependence; Z79.899 Other long term (current) drug therapy
CPT/HCPCS: 36415; 51702; 74176; 80048; 81001; 85025; 99284

== ENCOUNTER → 2022-07-27 | Outpatient (CLI) | payer OTHER ==
[2022-07-27 14:55] LABS: Basophils # (A) 0.05 X 10*3/uL (0.00-0.10); Basophils % (A) 0.7 %; Eosinophils # (A) 0.15 X 10*3/uL (0.04-0.35); Eosinophils % (A) 2.1 %; HCT 46.9 % (39.6-50.0); Immature Grans, Automated 0.3 %; Lymphocytes % (A) 36.6 %; MCH 25.7 pg (27.0-32.0); MCHC 29.9 g/dL (32.0-37.0); MCV 86.2 fL (80.0-97.0); Mean Platelet Volume 11.1 fL (9.5-12.2); Monocytes # (A) 0.69 X 10*3/uL (0.20-1.00); Monocytes % (A) 9.7 %; NRBC Per 100 WBC 0 /100 WBCS (0.0-0.0); Neutrophils % (A) 50.6 %; Platelet Count 281 X 10*3/uL (140-440); RBC 5.44 X 10*6/uL (4.40-5.60); RDW 16.1 % (11.5-14.5); WBC 7.11 X 10*3/uL (4.50-10.00)
[2022-07-27 15:44] LABS: African American GFR (CKD) 84.6 (60.0-200.0); Anion Gap 11.8 mmol/L (10.00-18.00); BUN/Creat Ratio 20.36 Ratio (12.00-20.00); Blood Urea Nitrogen 20.2 mg/dL (9.0-27.0); Calcium 9.9 mg/dL (8.7-10.3); Carbon Dioxide 20.5 mmol/L (20.0-27.5); Potassium 4.6 mmol/L (3.5-5.5)
== END | disposition home or self-care (01) ==
LOC: LABPAT 08:50
PROVIDERS: ATTEND Urology
DX: Z01.812 Encounter for preprocedural laboratory examination (principal); N21.0 Calculus in bladder
CPT/HCPCS: 36415; 80048; 85025

== ENCOUNTER 2022-08-02 06:15 | Day surgery (SDC) | payer MEDICARE, OTHER ==
--- NOTE | 2022-08-01 07:20 | P.GSHP ---
History of Present Illness H&P Date: 08/01/22 Chief Complaint: Bladder calculi The patient is a 77-year-old white male who had an episode of urinary retention last month. A CT scan showed bilateral small renal calculi, as well as bladder calculi measuring up to 8 mm in size. He has taken tamsulosin since at least 2016, and finasteride was recently added. He reports mild dysuria. He now comes for removal of the bladder calculi. - Genitourinary (Male) Genitourinary: Reports as per HPI Past Medical History Past Medical History: Cancer, Eye Disorder, Prostate Disorder, Pulmonary Embolus (PE), Rheumatoid Arthritis (RA) Additional Past Medical History / Comment(s): 2014 R sided PE, bilateral chronic lung nodules, "leaky heart valve", BPH, skin cancer (melanoma) with removals, malignant colon polyps removed, headaches since CHI, bilateral cataracts with removal. As of 05/04/2022-thoracentesis x3. History of Any Multi-Drug Resistant Organisms: None Reported Past Surgical History: Appendectomy, Cholecystectomy, Heart Catheterization, Joint Replacement, Orthopedic Surgery Additional Past Surgical History / Comment(s): R knee arthroscopy, bilateral total knee arthroplasties, R shoulder rotator cuff repair, L knee replacement, bilateral elbow surgery, R hand partial amputation d/t injury, colonoscopy with 2 cancerous polypectomies, skin cancer removed, EGD Past Anesthesia/Blood Transfusion Reactions: No Reported Reaction Additional Past Anesthesia/Blood Transfusion Reaction / Comment(s): Pt has never recieved blood. Past Psychological History: No Psychological Hx Reported Smoking Status: Former smoker - Past Family History Son(s) Family Medical History: Deep Vein Thrombosis (DVT) Father Family Medical History: Cancer Additional Family Medical History / Comment(s): Father of lymphoma at age 70 yrs. Mother Family Medical History: Cancer Additional Family Medical History / Comment(s): Mother had breast cancer. She at age 88yrs. Medications and Allergies Home Medications Medication Instructions Recorded Confirmed Type Atorvastatin [Lipitor] 20 mg PO HS 11/25/18 05/04/22 History Albuterol Inhaler [Ventolin Hfa 1 puff INHALATION RT-Q4H PRN 05/01/21 05/04/22 History Inhaler] Calcium Carbonate/Vitamin D3 1 tab PO BID 05/01/21 05/04/22 History [Calcium 500-Vit D3 5 Mcg (200 Iu)] Cholecalciferol [Vitamin D3 (25 50 mcg PO DAILY 05/01/21 05/04/22 History Mcg = 1000 Iu)] Fluticasone Propion/Salmeterol 1 puff INHALATION RT-BID 05/01/21 05/04/22 History [Advair 250-50 Diskus] Omeprazole [PriLOSEC] 20 mg PO AC-BRKFST 05/01/21 05/04/22 History Potassium Chloride [Klor-Con 10 ER] 10 meq PO DAILY 05/01/21 05/04/22 History Tamsulosin [Flomax] 0.4 mg PO HS 05/01/21 05/04/22 History Leflunomide [Arava] 20 mg PO DAILY 10/30/21 05/04/22 History Albuterol Nebulized [Ventolin 2.5 mg INHALATION RT-Q4H PRN 02/14/22 05/04/22 History Nebulized] Tiotropium 2.5 Mcg/Puff [Spiriva 2 puff INHALATION RT-DAILY 02/14/22 05/04/22 History Respimat 2.5 Mcg] metFORMIN HCL ER [Glucophage XR] 500 mg PO DAILY 02/14/22 05/04/22 History Apixaban [Eliquis] 5 mg PO BID #60 tab 02/15/22 05/04/22 Rx Metoprolol Tartrate [Lopressor] 25 mg PO BID #60 tab 02/17/22 05/04/22 Rx Ketoconazole 2% Shampoo [Nizoral] 1 applic TOPICAL MOWEFR 04/18/22 05/04/22 History Amoxic-Pot Clav 875-125Mg 1 tab PO Q12HR 7 Days #14 tab 05/16/22 Rx [Augmentin 875-125] Furosemide [Lasix] 40 mg PO DAILY #5 tablet 05/21/22 Rx Allergies Allergy/AdvReac Type Severity Reaction Status Date / Time No Known Allergies Allergy Verified 07/01/22 06:53 Surgical - Exam - General well developed, well nourished, no distress - Respiratory normal respiratory effort - Abdomen Abdomen: soft, non tender, no guarding, no rigid, no rebound - Genitourinary normal penis with no external lesions, testicles non-tender - Psychiatric oriented to time, oriented to person, oriented to place, speech is normal, memory intact Results - Imaging CT scan - pelvis: report reviewed, image reviewed Assessment and Plan (1) Calculus in bladder Status: Acute Code(s): N21.0 - CALCULUS IN BLADDER SNOMED Code(s): 12245449 Plan: Cystoscopy with cystolithotripsy. The procedure has been reviewed in detail with the patient. He has been made aware of potential risks, which include anesthesia, bleeding, infection, bladder perforation, and postoperative urinary retention.
[2022-08-02] MEDS ORDERED: ONDANSETRON 4 MG/2 ML VIAL IVP ONE (06:23)
[2022-08-02] MEDS ORDERED: LACTATED RINGERS 1,000 ML IV SCH (06:23)
[2022-08-02 06:45] LABS: Glucose,Whole Blood 102 mg/dL (70-110)
[2022-08-02] MEDS ORDERED: HYDROmorphone 0.5 MG/0.5 ML SYRINGE IVP PRN (07:00)
[2022-08-02] MEDS ORDERED: DEXAMETHASONE SOD PHOSPHATE 4 MG/ML 1 ML VIAL IVP ONE (07:00)
[2022-08-02] MEDS ORDERED: LACTATED RINGERS 1,000 ML IV ONE (07:00)
[2022-08-02] MEDS ORDERED: fentaNYL (PF) 50 MCG/ML 2 ML AMP ONE (07:29)
[2022-08-02] MEDS ORDERED: SUCCINYLCHOLINE CHLORIDE 200 MG/10 ML VIAL IV ONE (07:29)
[2022-08-02] MEDS ORDERED: PHENYLEPHRINE-0.9% NACL SYG 1,000 MCG/10 ML SYRINGE ONE (07:29)
[2022-08-02] MEDS ORDERED: PROPOFOL 10 MG/ML 20 ML VIAL IV ONE (07:29)
[2022-08-02] MEDS ORDERED: LIDOCAINE 2% INJ 20 MG/ML (2 ML VIAL) ONE (07:29)
[2022-08-02 08:36] VITALS: TEMP 97
--- NOTE | 2022-08-02 08:51 | P.OP ---
Date of Procedure: 08/02/22 Preoperative Diagnosis: Bladder calculi Postoperative Diagnosis: Same Procedure(s) Performed: Cystoscopy with cystolithotripsy, fulguration of bleeders Anesthesia: PHYLLISA Surgeon: Rusty Andrews Estimated Blood Loss (ml): 10 IV fluids (ml): 600 Pathology: other Condition: stable Disposition: PACU Indications for Procedure: The patient is a 77-year-old white male who had an episode of urinary retention last month. A CT scan showed bilateral small renal calculi, as well as bladder calculi measuring up to 8 mm in size. He has taken tamsulosin since at least 2017, and finasteride was recently added. He reports mild dysuria. He now comes for removal of the bladder calculi. Operative Findings: Trilobar BPH. Several bladder calculi, all removed completely. Description of Procedure: The patient was taken to the operating room and placed in the dorsal lithotomy position, with legs supported in Flip stirrups. The external genitalia was prepped and draped sterilely. The 30 lens was used to introduce the 21-[place] Valle cystoscopic sheath through the urethra and into the bladder under direct vision. The urethra appeared normal. The prostate showed evidence trilobar enlargement, visually occluded. The bladder was examined in its entirety. The ureteral orifices appeared normal. Several calculi were seen measuring up to 1 cm in size. No tumors were seen. The bladder was trabeculated, but no diverticuli were seen. Using the 1000 micron Holmium laser probe, lithotripsy was performed. Lithotripsy was continued until all calculus fragments could be removed using the Ellik evacuator. Once this was completed, the bladder was inspected. There was no evidence of bladder perforation. Some oozing occurred from the mucosa overlying the median lobe. This was controlled with electrocautery using an 8-Uk[place] Bugbee electrode. An 18-Uk[place] Guerra catheter was placed. The return was essentially clear. The patient tolerated the procedure well was taken to the recovery room in stable condition.
[2022-08-02 09:19] VITALS: RESP 16
[2022-08-02 09:47] VITALS: BP 157/81; PULSE 64
== END 2022-08-02 10:10 | disposition home or self-care (01) ==
LOC: OR 06:15
PROVIDERS: ATTEND Urology
DX: N21.0 Calculus in bladder (principal); N40.1 Benign prostatic hyperplasia with lower urinary tract symptoms; R33.8 Other retention of urine; N32.89 Other specified disorders of bladder; I25.2 Old myocardial infarction; E11.9 Type 2 diabetes mellitus without complications; Z79.84 Long term (current) use of oral hypoglycemic drugs; J44.9 Chronic obstructive pulmonary disease, unspecified; E78.5 Hyperlipidemia, unspecified; I10 Essential (primary) hypertension; Z86.711 Personal history of pulmonary embolism; M06.9 Rheumatoid arthritis, unspecified; Z87.440 Personal history of urinary (tract) infections; H57.9 Unspecified disorder of eye and adnexa; Z85.820 Personal history of malignant melanoma of skin; Z85.038 Personal history of other malignant neoplasm of large intestine; Z87.09 Personal history of other diseases of the respiratory system; Z98.890 Other specified postprocedural states; Z96.653 Presence of artificial knee joint, bilateral; Z89.111 Acquired absence of right hand; Z90.49 Acquired absence of other specified parts of digestive tract; Z87.891 Personal history of nicotine dependence; Z83.2 Family history of diseases of the blood and blood-forming organs and certain disorders involving the immune mechanism; Z80.7 Family history of other malignant neoplasms of lymphoid, hematopoietic and related tissues; Z80.3 Family history of malignant neoplasm of breast; Z79.01 Long term (current) use of anticoagulants; Z79.02 Long term (current) use of antithrombotics/antiplatelets; Z79.51 Long term (current) use of inhaled steroids; Z79.899 Other long term (current) drug therapy; Z79.83 Long term (current) use of bisphosphonates; Z79.891 Long term (current) use of opiate analgesic
CPT/HCPCS: 52317; 84132; 82365; J0330; J1100; J0690; J2405; J3010; J2370; J2704; J2001

== ENCOUNTER → 2022-08-07 | Outpatient (CLI) | payer MEDICARE ==
--- NOTE | 2022-08-07 10:59 | XR ---
EXAMINATION TYPE: XR chest 2V DATE OF EXAM: 08/07/2022 COMPARISON: 05/21/2022 TECHNIQUE: PA and lateral views submitted. HISTORY: COPD FINDINGS: There is right-sided consolidation and small effusion and the heart is enlarged. Bilateral patchy inf iltrates. Surgical changes left shoulder with surgical clips seen overlying the left lung apex. Atrop hic and degenerative changes spine. Postsurgical change involving the left shoulder. IMPRESSION: 1. COPD with bilateral patchy infiltrate and small bilateral effusions. Findings are similar to prior exam.. Consider follow-up CT scan
== END | disposition home or self-care (01) ==
LOC: RADXRMAIN 09:38
PROVIDERS: ATTEND Internal Medicine Sleep Medicine
DX: J44.9 Chronic obstructive pulmonary disease, unspecified (principal); J90 Pleural effusion, not elsewhere classified; R91.8 Other nonspecific abnormal finding of lung field
CPT/HCPCS: 71046